=== PATIENT | female | born 1960 | race Caucasian/White ===

== ENCOUNTER 2017-04-05 12:15 | Emergency (ER) | payer OTHER ==
[2017-04-05 12:23] VITALS: RESP 16
--- NOTE | 2017-04-05 12:31 | ED ---
General Adult HPI - General Chief complaint: Recheck/Abnormal Lab/Rx Stated complaint: hypoglycemia Time Seen by Provider: 04/05/17 12:24 Source: patient, EMS, RN notes reviewed, old records reviewed Mode of arrival: EMS Limitations: no limitations - History of Present Illness Initial comments: 56 year-old female who presents emergency room today with chief complaint of low blood sugar today while she was at work. Patient does admit that she works at [employer]. Checked her blood sugar was 35. They did give her food and drinks. Patient does admit that she is on insulin only takes at night. Has not eaten or drank anything prior to this episode of feeling somewhat lightheaded. patient does admit that her laceration been monitoring blood pressure which is been elevated was seen here recently for an elevated blood pressure. She is scheduled to see her family doctor in 2 days. Patient denies any other complaints or symptoms. Patient denies any recent fever, chills, shortness of breath, chest pain, back pain, abdominal pain, nausea or vomiting, numbness or tingling, dysuria or hematuria, constipation or diarrhea, headaches or visual changes, or any other complaints. - Related Data Home Medications Medication Instructions Recorded Confirmed Atenolol [Tenormin] 50 mg PO BID 03/29/17 04/05/17 Cholecalciferol [Vitamin D3] 1,000 unit PO HS 03/29/17 04/05/17 Enalapril [Vasotec] 20 mg PO BID 03/29/17 04/05/17 Gabapentin [Neurontin] 200 mg PO BID 03/29/17 04/05/17 Hydrochlorothiazide [Hydrodiuril] 25 mg PO BID 03/29/17 04/05/17 Insulin Glargine,Hum.rec.anlog 70 unit SQ HS 03/29/17 04/05/17 [Lantus Solostar] Insulin Lispro [humaLOG Kwikpen] 24 unit SQ HS 03/29/17 04/05/17 Naproxen Sodium [Aleve] 220 mg PO Q12HR PRN 03/29/17 04/05/17 Potassium Chloride [Klor-Con 40 meq PO BID 03/29/17 04/05/17 Sprinkle] cloNIDine HCL 0.3 mg PO BID 03/29/17 04/05/17 metFORMIN HCL ER [Glucophage Xr] 1,000 mg PO PC-SUPPER 03/29/17 04/05/17 Previous Rx's Medication Instructions Recorded hydrALAZINE HCL [Apresoline] 10 mg PO QID #40 tablet 03/29/17 Allergies Allergy/AdvReac Type Severity Reaction Status Date / Time sulfamethoxazole AdvReac Itching Verified 04/05/17 12:47 [From Bactrim] trimethoprim [From Bactrim] AdvReac Itching Verified 04/05/17 12:47 Review of Systems ROS Statement: Those systems with pertinent positive or pertinent negative responses have been documented in the HPI. ROS Other: All systems not noted in ROS Statement are negative. Past Medical History Past Medical History: Diabetes Mellitus, Hypertension History of Any Multi-Drug Resistant Organisms: None Reported Past Surgical History: Hysterectomy Past Psychological History: No Psychological Hx Reported Smoking Status: Current every day smoker Past Alcohol Use History: Occasional Past Drug Use History: None Reported General Exam - General Exam Comments Initial Comments: General: The patient is awake and alert, in no distress, and does not appear acutely ill. Eye: Pupils are equal, round and reactive to light, extra-ocular movements are intact. No nystagmus. There is normal conjunctiva bilaterally. No signs of icterus. Ears, nose, mouth and throat: There are moist mucous membranes and no oral lesions. Neck: The neck is supple, there is no tenderness or JVD. Cardiovascular: There is a regular rate and rhythm. No murmur, rub or gallop is appreciated. Respiratory: Lungs are clear to auscultation, respirations are non-labored, breath sounds are equal. No wheezes, stridor, rales, or rhonchi. Gastrointestinal: Soft, non-distended, non-tender abdomen without masses or organomegaly noted. There is no rebound or guarding present. No CVA tenderness. Bowel sounds are unremarkable. Musculoskeletal: Normal ROM, no tenderness. Strength 5/5. Sensation intact. Pulses equal bilaterally 2+. Neurological: A&O x 3. CN II-XII intact, There are no obvious motor or sensory deficits. Coordination appears grossly intact. Speech is normal. Skin: Skin is warm and dry and no rashes or lesions are noted. Psychiatric: Cooperative, appropriate mood & affect, normal judgment. Limitations: no limitations Course Vital Signs 04/05/17 04/05/17 12:19 13:41 Temperature 97.5 F L Pulse Rate 57 L 53 L Respiratory 16 Rate Blood Pressure 149/57 139/67 O2 Sat by Pulse 99 97 Oximetry Medical Decision Making - Medical Decision Making patient reexamined at this time shows no signs of distress. Case was discussed in detail with attending physician Dr. Suarez. Patient's labs been reviewed. Current enzymes negative. Patient's potassium 2.6 history of hypokalemia. States she has not taken her potassium medication. Patient was given potassium by mouth here in emergency room. At this time she is asymptomatic. She does admit to a hypoglycemic episode while at work. She states that she did become somewhat confused and lightheaded and had her sugar checked was 35 she received food and something to drink at this time her blood sugars been stable here in emergency room. She is had no symptoms. She does admit that she's been following up due to an elevated blood pressure was seen here the emergency room recently for this. She states she has a point with her family doctor in 2 days. At this time patient asymptomatic we will discharge her to follow-up the family doctor have repeat labs obtained. Advised to return here to the emergency room if any symptoms increase or worsen or for any other concerns. Patient and family member at bedside state understanding and are in agreement with the plan. - Lab Data Result diagrams: 04/05/17 12:47 04/05/17 12:47 Lab Results 04/05/17 04/05/17 04/05/17 Range/Units 12:18 12:47 12:47 WBC 10.6 (3.8-10.6) k/uL RBC 4.61 (3.80-5.40) m/uL Hgb 15.4 (11.4-16.0) gm/dL Hct 44.3 (34.0-46.0) % MCV 96.1 (80.0-100.0) fL MCH 33.5 (25.0-35.0) pg MCHC 34.8 (31.0-37.0) g/dL RDW 13.5 (11.5-15.5) % Plt Count 239 (150-450) k/uL Neutrophils % 61 % Lymphocytes % 30 % Monocytes % 5 % Eosinophils % 2 % Basophils % 1 % Neutrophils # 6.5 (1.3-7.7) k/uL Lymphocytes # 3.2 (1.0-4.8) k/uL Monocytes # 0.5 (0-1.0) k/uL Eosinophils # 0.2 (0-0.7) k/uL Basophils # 0.1 (0-0.2) k/uL Sodium 136 L (137-145) mmol/L Potassium 2.6 L* (3.5-5.1) mmol/L Chloride 100 (98-107) mmol/L Carbon Dioxide 26 (22-30) mmol/L Anion Gap 10 mmol/L BUN 17 (7-17) mg/dL Creatinine 0.90 (0.52-1.04) mg/dL Est GFR (MDRD) Af Amer >60 (>60 ml/min/1.73 sqM) Est GFR (MDRD) Non-Af >60 (>60 ml/min/1.73 sqM) Glucose 115 H (74-99) mg/dL POC Glucose (mg/dL) 132 H (75-99) mg/dL POC Glu Acetylene Cylinder Packing Mixer ID Marlyn Narvaez Calcium 9.7 (8.4-10.2) mg/dL Total Bilirubin 0.7 (0.2-1.3) mg/dL AST 27 (14-36) U/L ALT 39 (9-52) U/L Alkaline Phosphatase 70 (38-126) U/L Total Creatine Kinase (30-135) U/L CK-MB (CK-2) (0.0-2.4) ng/mL CK-MB (CK-2) Rel Index Troponin I (0.000-0.034) ng/mL Total Protein 6.2 L (6.3-8.2) g/dL Albumin 3.6 (3.5-5.0) g/dL Urine Color Urine Appearance (Clear) Urine pH (5.0-8.0) Ur Specific [place] (1.001-1.035) Urine Protein (Negative) Urine Glucose (UA) (Negative) Urine Ketones (Negative) Urine Blood (Negative) Urine Nitrite (Negative) Urine Bilirubin (Negative) Urine Urobilinogen (<2.0) mg/dL Ur Leukocyte Esterase (Negative) Urine RBC (0-5) /hpf Urine WBC (0-5) /hpf Ur Squamous Epith Cells (0-4) /hpf Amorphous Sediment (None) /hpf Urine Bacteria (None) /hpf 11/28/17 11/28/17 11/28/17 Range/Units 12:47 12:55 13:33 WBC (3.8-10.6) k/uL RBC (3.80-5.40) m/uL Hgb (11.4-16.0) gm/dL Hct (34.0-46.0) % MCV (80.0-100.0) fL MCH (25.0-35.0) pg MCHC (31.0-37.0) g/dL RDW (11.5-15.5) % Plt Count (150-450) k/uL Neutrophils % % Lymphocytes % % Monocytes % % Eosinophils % % Basophils % % Neutrophils # (1.3-7.7) k/uL Lymphocytes # (1.0-4.8) k/uL Monocytes # (0-1.0) k/uL Eosinophils # (0-0.7) k/uL Basophils # (0-0.2) k/uL Sodium (137-145) mmol/L Potassium (3.5-5.1) mmol/L Chloride (98-107) mmol/L Carbon Dioxide (22-30) mmol/L Anion Gap mmol/L BUN (7-17) mg/dL Creatinine (0.52-1.04) mg/dL Est GFR (MDRD) Af Amer (>60 ml/min/1.73 sqM) Est GFR (MDRD) Non-Af (>60 ml/min/1.73 sqM) Glucose (74-99) mg/dL POC Glucose (mg/dL) 97 (75-99) mg/dL POC Glu Acetylene Cylinder Packing Mixer ID Marlyn Narvaez Calcium (8.4-10.2) mg/dL Total Bilirubin (0.2-1.3) mg/dL AST (14-36) U/L ALT (9-52) U/L Alkaline Phosphatase (38-126) U/L Total Creatine Kinase 220 H (30-135) U/L CK-MB (CK-2) 6.4 H* (0.0-2.4) ng/mL CK-MB (CK-2) Rel Index 2.9 Troponin I 0.016 (0.000-0.034) ng/mL Total Protein (6.3-8.2) g/dL Albumin (3.5-5.0) g/dL Urine Color Yellow Urine Appearance Turbid H (Clear) Urine pH 7.5 (5.0-8.0) Ur Specific [place] 1.009 (1.001-1.035) Urine Protein Trace H (Negative) Urine Glucose (UA) Negative (Negative) Urine Ketones Negative (Negative) Urine Blood Trace H (Negative) Urine Nitrite Negative (Negative) Urine Bilirubin Negative (Negative) Urine Urobilinogen <2.0 (<2.0) mg/dL Ur Leukocyte Esterase Negative (Negative) Urine RBC 2 (0-5) /hpf Urine WBC 5 (0-5) /hpf Ur Squamous Epith Cells 9 H (0-4) /hpf Amorphous Sediment Rare H (None) /hpf Urine Bacteria Occasional H (None) /hpf Disposition Clinical Impression: Hypoglycemia, Hypokalemia Disposition: HOME SELF-CARE Condition: Good Instructions: Hypoglycemia in a Person with Diabetes (ED) Additional Instructions: Please use medication as discussed. Please follow-up with family doctor in the next 2 days. Please return to emergency room if the symptoms increase or worsen or for any other concerns. Referrals: Gurinder Gold MD [Primary Care Provider] - 1-2 days Time of Disposition: 14:29
[2017-04-05 13:00] LABS: Basophils # (A) 0.1 k/uL (0-0.2); Basophils % (A) 1 %; CH 34.4; Eosinophils # (A) 0.2 k/uL (0-0.7); Eosinophils % (A) 2 %; HCT 44.3 % (34.0-46.0); HDW 2.74; HGB 15.4 gm/dL (11.4-16.0); Luc # (Auto) 0.22; Luc % (Auto) 2; Lymphocytes # (A) 3.2 k/uL (1.0-4.8); Lymphocytes % (A) 30 %; MCH 33.5 pg (25.0-35.0); MCHC 34.8 g/dL (31.0-37.0); MCV 96.1 fL (80.0-100.0); Mean Platelet Volume 8.1; Monocytes # (A) 0.5 k/uL (0-1.0); Monocytes % (A) 5 %; Neutrophils # (A) 6.5 k/uL (1.3-7.7); Neutrophils % (A) 61 %; RBC 4.61 m/uL (3.80-5.40); RDW 13.5 % (11.5-15.5); WBC 10.6 k/uL (3.8-10.6); WBC (Perox) 10.21
[2017-04-05 13:17] LABS: ALT 39 U/L (9-52); AST 27 U/L (14-36); Alkaline Phosphatase 70 U/L (38-126); Anion Gap 10 mmol/L; Blood Urea Nitrogen 17 mg/dL (7-17); Calcium 9.7 mg/dL (8.4-10.2); Carbon Dioxide 26 mmol/L (22-30); Chloride 100 mmol/L (98-107); Glucose 115 mg/dL (74-99); Non-African American GFR(MDRD) >60 (>60 ml/min/1.73 sqM); Sodium 136 mmol/L (137-145); Total Bilirubin 0.7 mg/dL (0.2-1.3); Total Protein 6.2 g/dL (6.3-8.2)
[2017-04-05 13:20] LABS: Amorphous Sediment,Urine Rare /hpf; Appearance,Urine Turbid (Clear); Bacteria,Urine Occasional /hpf; Bilirubin,Urine Negative (Negative); Glucose,Urine (UA) Negative (Negative); Ketones,Urine Negative (Negative); Leukocyte Esterase,Urine Negative (Negative); Nitrite,Urine Negative (Negative); PH, Urine 7.5 (5.0-8.0); Particle Count 32681; Protein,Urine Trace (Negative); RBC,Urine 2 /hpf (0-5); Specific Gravity,Urine 1.009 (1.001-1.035); Squamous Epithelial Cell,Urine 9 /hpf (0-4); UA Billing (MACRO vs. MICRO) MICRO; Urobilinogen,Urine <2.0 mg/dL (<2.0); WBC,Urine 5 /hpf (0-5)
[2017-04-05 13:28] LABS: Potassium 2.6 mmol/L (3.5-5.1)
--- NOTE | 2017-04-05 13:29 | XR ---
EXAMINATION TYPE: XR chest 2V DATE OF EXAM: 04/05/2017 COMPARISON: 04/05/2017 HISTORY: Shortness of breath TECHNIQUE: Frontal and lateral views of the chest are obtained. FINDINGS: Scattered senescent parenchymal changes noted. No evidence for infiltrate. No evidence for atelectasis. Heart size is stable. Mediastinal structures are stable and grossly unremarkable. No evidence for hilar prominence. Degenerative changes dorsal spine. IMPRESSION: 1. No evidence for acute pulmonary disease.
[2017-04-05 13:33] LABS: Glucose,Whole Blood 97 mg/dL (75-99)
[2017-04-05] MEDS ORDERED: POTASSIUM CHLORIDE ER 20 MEQ TAB.ER PO STA (13:34)
[2017-04-05 13:51] LABS: Glucose,Whole Blood 132 mg/dL (75-99)
[2017-04-05 14:00] LABS: Troponin I 0.016 ng/mL (0.000-0.034)
[2017-04-05 14:07] LABS: Creatine Kinase MB 6.4 ng/mL (0.0-2.4)
[2017-04-05 14:48] VITALS: BP 153/74; PULSE 61; TEMP 98
== END 2017-04-05 14:47 | disposition home or self-care (01) ==
LOC: EC 12:15
DX: E11.649 Type 2 diabetes mellitus with hypoglycemia without coma (principal); I10 Essential (primary) hypertension; F17.200 Nicotine dependence, unspecified, uncomplicated; Z79.4 Long term (current) use of insulin; Z79.899 Other long term (current) drug therapy; Z79.1 Long term (current) use of non-steroidal anti-inflammatories (NSAID); Z88.2 Allergy status to sulfonamides
CPT/HCPCS: 36415; 71020; 80053; 81001; 82550; 82553; 83036; 84484; 85025; 93005; 99285

== ENCOUNTER 2017-10-21 13:28 | Inpatient (IN) | payer OTHER ==
--- NOTE | 2017-10-21 13:46 | ED ---
General Adult HPI - General Chief complaint: Neuro Symptoms/Deficit Stated complaint: Leg Numbness Time Seen by Provider: 10/21/17 13:37 Source: patient, RN notes reviewed, old records reviewed Mode of arrival: wheelchair Limitations: physical limitation - History of Present Illness Initial comments: 56-year-old female with history of hypertension diabetes presents with left leg numbness and weakness. Patient did have some left facial numbness and slurred speech which resolved prior to arrival. Patient patient states she woke with her left leg numbness this morning and weakness has progressed over the past 5- 6 hours. She denies any left upper extremity weakness or numbness. No chest pain. No shortness of breath. No abdominal pain. - Related Data Home Medications Medication Instructions Recorded Confirmed Atenolol [Tenormin] 50 mg PO BID 03/29/17 10/21/17 Enalapril [Vasotec] 20 mg PO BID 03/29/17 10/21/17 Gabapentin [Neurontin] 200 mg PO BID 03/29/17 10/21/17 Hydrochlorothiazide [Hydrodiuril] 25 mg PO BID 03/29/17 10/21/17 Insulin Glargine,Hum.rec.anlog 70 unit SQ HS 03/29/17 10/21/17 [Lantus Solostar] Naproxen Sodium [Aleve] 220 mg PO Q12HR PRN 03/29/17 10/21/17 Potassium Chloride [Klor-Con 40 meq PO BID 03/29/17 10/21/17 Sprinkle] cloNIDine HCL 0.3 mg PO BID 03/29/17 10/21/17 metFORMIN HCL ER [Glucophage Xr] 500 mg PO BID 03/29/17 10/21/17 Allopurinol [Zyloprim] 150 mg PO DAILY 10/21/17 10/21/17 Colchicine [Colcrys] 0.6 mg PO DAILY 10/21/17 10/21/17 Diazepam [Valium] 2 mg PO TID PRN 10/21/17 10/21/17 INSULIN LISPRO (HumaLOG) [HumaLOG] 24 units SQ AC-TID 10/21/17 10/21/17 INSULIN LISPRO (humaLOG) [humaLOG] See Protocol SQ AC-TID 10/21/17 10/21/17 hydrALAZINE HCL [Apresoline] 10 mg PO BID 10/21/17 10/21/17 Allergies Allergy/AdvReac Type Severity Reaction Status Date / Time sulfamethoxazole AdvReac Itching Verified 10/21/17 14:16 [From Bactrim] trimethoprim [From Bactrim] AdvReac Itching Verified 10/21/17 14:16 Review of Systems ROS Statement: Those systems with pertinent positive or pertinent negative responses have been documented in the HPI. ROS Other: All systems not noted in ROS Statement are negative. Past Medical History Past Medical History: Diabetes Mellitus, Hypertension Additional Past Medical History / Comment(s): gout History of Any Multi-Drug Resistant Organisms: None Reported Past Surgical History: Hysterectomy Past Psychological History: No Psychological Hx Reported Smoking Status: Current every day smoker Past Alcohol Use History: Occasional Past Drug Use History: None Reported General Exam Limitations: physical limitation General appearance: alert, in no apparent distress Head exam: Present: atraumatic, normocephalic Eye exam: Present: normal appearance, PERRL, EOMI ENT exam: Present: normal exam Neck exam: Present: normal inspection. Absent: tenderness, meningismus Respiratory exam: Present: wheezes. Absent: respiratory distress Cardiovascular Exam: Present: regular rate, normal rhythm GI/Abdominal exam: Present: soft. Absent: distended, tenderness Extremities exam: Present: normal inspection, normal capillary refill. Absent: pedal edema Neurological exam: Present: alert, oriented X3, CN II-XII intact, motor sensory deficit (Patient has NIH of 2 for left lower extremity drift and sensory loss. Patient has reduced left upper extremity strength and reduced wedding planner strength however does not meet NIH criteria.) Psychiatric exam: Present: normal affect, normal mood Skin exam: Present: warm, dry, intact Course Vital Signs 10/21/17 10/21/17 13:31 15:06 Temperature 98.5 F Pulse Rate 64 58 L Respiratory 18 18 Rate Blood Pressure 185/93 184/87 O2 Sat by Pulse 99 99 Oximetry EKG Findings - EKG Comments: EKG Findings:: EKG: Normal sinus rhythm with sinus arrhythmia, rate of 62, MN interval 164, QRS duration 88, QTC 434, no signs of acute ischemia Medical Decision Making - Medical Decision Making 56-year-old female presenting with left lower leg weakness and numbness. On exam patient has an NIH of 2, she does have some weakness in her upper extremities well, no distress, this is primarily weakness in her flexion and wedding planner strength. Patient was not a TPA candidate secondary to onset time and awakening with minimal symptoms. CT is obtained, this does show encephalomalacia in the left cerebellum, no intracranial hemorrhage. CT angiography is negative for large occlusion or aneurysm. Laboratory studies are within normal limits, patient will be admitted for further stroke workup. - Lab Data Result diagrams: 10/21/17 13:54 10/21/17 13:54 Lab Results 10/21/17 10/21/17 10/21/17 Range/Units 13:54 13:54 13:54 WBC 10.7 H (3.8-10.6) k/uL RBC 4.57 (3.80-5.40) m/uL Hgb 14.1 (11.4-16.0) gm/dL Hct 40.8 (34.0-46.0) % MCV 89.4 (80.0-100.0) fL MCH 30.9 (25.0-35.0) pg MCHC 34.6 (31.0-37.0) g/dL RDW 13.6 (11.5-15.5) % Plt Count 234 (150-450) k/uL Neutrophils % 61 % Lymphocytes % 30 % Monocytes % 5 % Eosinophils % 2 % Basophils % 1 % Neutrophils # 6.5 (1.3-7.7) k/uL Lymphocytes # 3.2 (1.0-4.8) k/uL Monocytes # 0.6 (0-1.0) k/uL Eosinophils # 0.2 (0-0.7) k/uL Basophils # 0.1 (0-0.2) k/uL PT (9.0-12.0) sec INR (<1.2) APTT (22.0-30.0) sec Sodium 142 (137-145) mmol/L Potassium 3.6 (3.5-5.1) mmol/L Chloride 107 (98-107) mmol/L Carbon Dioxide 23 (22-30) mmol/L Anion Gap 12 mmol/L BUN 19 H (7-17) mg/dL Creatinine 0.82 (0.52-1.04) mg/dL Est GFR (CKD-EPI)AfAm >90 (>60 ml/min/1.73 sqM) Est GFR (CKD-EPI)NonAf 81 (>60 ml/min/1.73 sqM) Glucose 142 H (74-99) mg/dL Calcium 10.1 (8.4-10.2) mg/dL Total Bilirubin 0.7 (0.2-1.3) mg/dL AST 25 (14-36) U/L ALT 41 (9-52) U/L Alkaline Phosphatase 97 (38-126) U/L Total Creatine Kinase 102 (30-135) U/L CK-MB (CK-2) 3.3 H* (0.0-2.4) ng/mL CK-MB (CK-2) Rel Index 3.2 Troponin I <0.012 (0.000-0.034) ng/mL Total Protein 6.5 (6.3-8.2) g/dL Albumin 4.2 (3.5-5.0) g/dL 10/21/17 Range/Units 13:54 WBC (3.8-10.6) k/uL RBC (3.80-5.40) m/uL Hgb (11.4-16.0) gm/dL Hct (34.0-46.0) % MCV (80.0-100.0) fL MCH (25.0-35.0) pg MCHC (31.0-37.0) g/dL RDW (11.5-15.5) % Plt Count (150-450) k/uL Neutrophils % % Lymphocytes % % Monocytes % % Eosinophils % % Basophils % % Neutrophils # (1.3-7.7) k/uL Lymphocytes # (1.0-4.8) k/uL Monocytes # (0-1.0) k/uL Eosinophils # (0-0.7) k/uL Basophils # (0-0.2) k/uL PT 10.1 (9.0-12.0) sec INR 1.0 (<1.2) APTT 20.6 L (22.0-30.0) sec Sodium (137-145) mmol/L Potassium (3.5-5.1) mmol/L Chloride (98-107) mmol/L Carbon Dioxide (22-30) mmol/L Anion Gap mmol/L BUN (7-17) mg/dL Creatinine (0.52-1.04) mg/dL Est GFR (CKD-EPI)AfAm (>60 ml/min/1.73 sqM) Est GFR (CKD-EPI)NonAf (>60 ml/min/1.73 sqM) Glucose (74-99) mg/dL Calcium (8.4-10.2) mg/dL Total Bilirubin (0.2-1.3) mg/dL AST (14-36) U/L ALT (9-52) U/L Alkaline Phosphatase (38-126) U/L Total Creatine Kinase (30-135) U/L CK-MB (CK-2) (0.0-2.4) ng/mL CK-MB (CK-2) Rel Index Troponin I (0.000-0.034) ng/mL Total Protein (6.3-8.2) g/dL Albumin (3.5-5.0) g/dL Disposition Clinical Impression: Cerebrovascular accident Disposition: ADMITTED IP TO THIS [facility] Condition: Stable Is patient prescribed a controlled substance at d/c from ED?: No Referrals: Rene Armijo DO [Primary Care Provider] - 1-2 days Decision to Admit Reason: Admit from EC Decision Date: 10/21/17 Decision Time: 15:35
[2017-10-21 14:05] LABS: Basophils # (A) 0.1 k/uL (0-0.2); Basophils % (A) 1 %; Eosinophils # (A) 0.2 k/uL (0-0.7); Eosinophils % (A) 2 %; HCT 40.8 % (34.0-46.0); HGB 14.1 gm/dL (11.4-16.0); Lymphocytes # (A) 3.2 k/uL (1.0-4.8); Lymphocytes % (A) 30 %; MCH 30.9 pg (25.0-35.0); MCHC 34.6 g/dL (31.0-37.0); MCV 89.4 fL (80.0-100.0); Mean Platelet Volume 7.9; Monocytes # (A) 0.6 k/uL (0-1.0); Monocytes % (A) 5 %; Neutrophils # (A) 6.5 k/uL (1.3-7.7); Neutrophils % (A) 61 %; Platelet Count 234 k/uL (150-450); RBC 4.57 m/uL (3.80-5.40); RDW 13.6 % (11.5-15.5); WBC 10.7 k/uL (3.8-10.6)
[2017-10-21 14:15] LABS: ALT 41 U/L (9-52); AST 25 U/L (14-36); Albumin 4.2 g/dL (3.5-5.0); Alkaline Phosphatase 97 U/L (38-126); Anion Gap 12 mmol/L; Blood Urea Nitrogen 19 mg/dL (7-17); Calcium 10.1 mg/dL (8.4-10.2); Carbon Dioxide 23 mmol/L (22-30); Chloride 107 mmol/L (98-107); Glucose 142 mg/dL (74-99); Potassium 3.6 mmol/L (3.5-5.1); Sodium 142 mmol/L (137-145); Total Bilirubin 0.7 mg/dL (0.2-1.3); Total Protein 6.5 g/dL (6.3-8.2)
[2017-10-21 14:21] LABS: Partial Thromboplastin Time 20.6 sec (22.0-30.0); Prothrombin Time 10.1 sec (9.0-12.0)
[2017-10-21 14:35] LABS: Creatine Kinase 102 U/L (30-135)
[2017-10-21 14:47] LABS: Troponin I <0.012 ng/mL (0.000-0.034)
[2017-10-21 14:49] LABS: Creatine Kinase MB 3.3 ng/mL (0.0-2.4)
--- NOTE | 2017-10-21 15:03 | CT ---
EXAMINATION TYPE: CT brain wo con for TPA DATE OF EXAM: 10/21/2017 COMPARISON: 01/10/2015 HISTORY: Lt leg numbness CT DLP: 1036 mGycm Automated exposure control for dose reduction was used. FINDINGS: There is a focal area of hypoattenuation within the within the left cerebellar hemisphere posteriorly more exaggerated than on the prior exam of 2014 representing encephalomalacia from prior injury. The re is also a prominent magna cisterna magna, incidentally noted. The ventricles and peripheral sulci are within normal limits for the patient's age. No hydrocephalus or transependymal edema is seen. Gra y-white matter interface is maintained. Mild atherosclerosis is seen of the intracranial vasculature. No suspicious extra-axial fluid collections are identified. Basal ganglia and insular cortices are w ell-preserved. Scant mucosal thickening is seen within the sphenoid sinuses. Remaining paranasal sinu ses and mastoid air cells are well aerated. Calvarium is intact. IMPRESSION: ENCEPHALOMALACIA WITHIN THE LEFT CEREBELLAR HEMISPHERE PROGRESSED FROM THE PRIOR EXAM. NO ACUTE INTRA CRANIAL PROCESS
--- NOTE | 2017-10-21 15:14 | CT ---
EXAMINATION TYPE: CT angio head neck DATE OF EXAM: 10/21/2017 HISTORY: Lt leg numbness COMPARISON: CT brain of the same date CT DLP: 338.1 mGycm. Automated Exposure Control for Dose Reduction was Utilized. TECHNIQUE: CTA scan of the neck is performed with IV Contrast, patient injected with 65 mL of Isovue 370, axial images are obtained, coronal and sagittal reformatted images are reviewed. Three-D recons tructed images are created on an independent workstation and reviewed. FINDINGS: Carotid/Vascular Structures: Moderate calcific atheromatous changes seen of the aortic arch. There is a normal three-vessel branch pattern of the aortic arch with mild nonhemodynamically significant iggy nosis of the origin of the left subclavian artery. The common carotid arteries are patent without ath erosclerosis. There is a medial course of the right common carotid artery with less than 50% calcific and noncalcific atheromatous change of the bilateral carotid bulbs. The right internal carotid arter y takes a hair pin turn just before entering the skull base. The internal carotid arteries in their c ervical portions and intracranial portions are patent without occlusion. However there is significant atheromatous plaquing of the cavernous portions of the internal carotid arteries of approximately 50 % is also supraclinoid portions. The proximal mineral cerebral arteries, anterior cerebral arteries, and posterior cerebral arteries a ppear patent. The anterior commuting artery and posterior communicating arteries are diminutive. The right vertebral artery is dominant. Minimal atherosclerosis seen of the left vertebral artery multifo dorys early. No evidence of intracranial aneurysm is seen. Other: Thyroid gland is heterogenous with ar 5 mm hypoattenuated posterior right thyroid gland nodule noted. Possible lymph nodes are seen within the parotid gland. Osseous structures are grossly intact . Minimal bibasilar atelectasis and paraseptal emphysema is seen at the lung apices. Moderate multile leni degenerative changes of the cervical spine are noted. IMPRESSION: No large vessel focal occlusion of the head or neck. Multifocal calcific atheromatous pl aquing of the carotid bulbs (less than 50%) left vertebral artery, cavernous portions and supraclinoi d portions of the internal carotid arteries (approximately 50%) and aortic arch. No evidence of intra cranial aneurysm.
--- NOTE | 2017-10-21 15:25 | XR ---
EXAMINATION TYPE: XR chest 2V DATE OF EXAM: 10/21/2017 COMPARISON: 03/28/2017 HISTORY: Fall with leg pain and facial numbness. History of hypertension. TECHNIQUE: Frontal and lateral views of the chest are obtained. FINDINGS: There is no focal air space opacity, pleural effusion, or pneumothorax seen. The cardiac silhouette size is within normal limits. The osseous structures are intact. Minimal multilevel dege nerative changes of thoracic spine are seen. IMPRESSION: No acute cardiopulmonary process.
[2017-10-21] MEDS ORDERED: ASPIRIN 325 MG TAB PO STA (15:35)
[2017-10-21] MEDS: GABAPENTIN 100 MG CAP PO SCH (20:21)
[2017-10-21] MEDS: cloNIDine HCL 0.1 MG TAB PO SCH (20:21)
[2017-10-21] MEDS: hydrALAZINE HCL 10 MG TAB PO SCH (20:22)
[2017-10-21] MEDS: HYDROCHLOROTHIAZIDE 25 MG TAB PO SCH (20:22)
[2017-10-21] MEDS: POTASSIUM CHLORIDE ER 20 MEQ TAB.ER PO SCH (20:22)
[2017-10-21] MEDS: LISINOPRIL 20 MG TAB PO SCH (20:22)
[2017-10-21] MEDS: ATENOLOL 50 MG TAB PO SCH (20:22)
[2017-10-21] MEDS: metFORMIN 500 MG TAB PO SCH (20:22)
[2017-10-21] MEDS: DIAZEPAM 2 MG TAB PO PRN (20:26)
[2017-10-21] MEDS ORDERED: ATORVASTATIN 80 MG TAB PO SCH (21:00)
[2017-10-21] MEDS ORDERED: INSULIN DETEMIR 100 UNIT/ML 10 ML VIAL SQ SCH (21:00)
[2017-10-21] MEDS: INSULIN ASPART 100 UNIT/ML 1 ML 10 ML VIAL SQ SCH (21:01)
[2017-10-21] MEDS: INSULIN DETEMIR 100 UNIT/ML 10 ML VIAL SQ SCH (21:19)
[2017-10-21] MEDS: HEPARIN SODIUM,PORCINE 5,000 UNIT/ML 1 ML VIAL SQ SCH (23:58)
[2017-10-22] MEDS: INSULIN ASPART 100 UNIT/ML 1 ML 10 ML VIAL SQ SCH ×4 (06:18→20:59)
[2017-10-22 06:25] LABS: Glucose,Whole Blood 49 mg/dL (75-99)
[2017-10-22 06:35] LABS: Glucose,Whole Blood 90 mg/dL (75-99)
[2017-10-22 06:42] LABS: Cholesterol 224 mg/dL (<200); HDL Cholesterol 35 mg/dL (40-60); LDL Cholesterol,Calculated 140 mg/dL (0-99); Triglycerides 247 mg/dL (<150)
[2017-10-22] MEDS ORDERED: INSULIN ASPART 100 UNIT/ML 1 ML 10 ML VIAL SQ SCH (07:30)
[2017-10-22] MEDS: HEPARIN SODIUM,PORCINE 5,000 UNIT/ML 1 ML VIAL SQ SCH ×3 (08:19→23:32)
[2017-10-22] MEDS: ALLOPURINOL 300 MG TAB PO SCH (08:20)
[2017-10-22] MEDS: ATENOLOL 50 MG TAB PO SCH ×2 (08:21→20:28)
[2017-10-22] MEDS: cloNIDine HCL 0.1 MG TAB PO SCH (08:21)
[2017-10-22] MEDS: GABAPENTIN 100 MG CAP PO SCH ×2 (08:21→20:28)
[2017-10-22] MEDS: COLCHICINE 0.6 MG EACH PO SCH (08:21)
[2017-10-22] MEDS: HYDROCHLOROTHIAZIDE 25 MG TAB PO SCH (08:22)
[2017-10-22] MEDS: LISINOPRIL 20 MG TAB PO SCH (08:22)
[2017-10-22] MEDS: hydrALAZINE HCL 10 MG TAB PO SCH (08:22)
[2017-10-22] MEDS: metFORMIN 500 MG TAB PO SCH ×2 (08:23→20:27)
[2017-10-22] MEDS: POTASSIUM CHLORIDE ER 20 MEQ TAB.ER PO SCH ×2 (08:23→20:28)
[2017-10-22] MEDS ORDERED: ASPIRIN 325 MG TAB PO SCH (12:00)
[2017-10-22 12:13] LABS: Glucose,Whole Blood 151 mg/dL (75-99)
--- NOTE | 2017-10-22 13:20 | ECHOF ---
Referral Reason:Thrombus MEASUREMENTS -------- HEIGHT: 157.5 cm WEIGHT: 71.7 kg BP: IVSd: 1.3 cm (0.6 - 1.1) LVIDd: 4.3 cm (3.9 - 5.3) LVPWd: 1.1 cm (0.6 - 1.1) IVSs: 1.5 cm LVIDs: 2.7 cm LVPWs: 1.9 cm LA Diam: 3.4 cm (2.7 - 3.8) LAESV Index (A-L): 44.57 ml/m Ao Diam: 2.9 cm (2.0 - 3.7) LA Diam: 3.6 cm (2.7 - 3.8) AV Cusp: 2.1 cm (1.5 - 2.6) EPSS: 1.4 cm MV E Conor: 0.82 m/s MV DecT: 235 ms MV A Conor: 0.95 m/s MV E/A Ratio: 0.87 RAP: 5.00 mmHg RVSP: 34.46 mmHg MV EF SLOPE: 36.70 mm/s (70 - 150) MV EXCURSION: 14.92 mm (> 18.000) FINDINGS -------- Sinus rhythm. This was a technically adequate study. The left ventricular size is normal. There is mild concentric left ventricular hypertrophy. Overa ll left ventricular systolic function is normal with, an EF between 55 - 60 %. The right ventricle is normal in size. The left atrial size is normal. The right atrial size is normal. There is mild aortic valve sclerosis. There is mild aortic regurgitation. Mild mitral annular calcification present. Mild mitral regurgitation is present. Mild tricuspid regurgitation present. There is no evidence of pulmonary hypertension. The right v entricular systolic pressure, as measured by Doppler, is 34.46mmHg. There is no pulmonic regurgitation present. The aortic root size is normal. There is no pericardial effusion. CONCLUSIONS -------- 1. The left ventricular size is normal. 2. There is mild concentric left ventricular hypertrophy. 3. Overall left ventricular systolic function is normal with, an EF between 55 - 60 %. 4. The right ventricle is normal in size. 5. The left atrial size is normal. 6. The right atrial size is normal. 7. There is mild aortic valve sclerosis. 8. There is mild aortic regurgitation. 9. Mild mitral annular calcification present. 10. Mild mitral regurgitation is present. 11. Mild tricuspid regurgitation present. 12. There is no evidence of pulmonary hypertension. 13. The right ventricular systolic pressure, as measured by Doppler, is 34.46mmHg. 14. There is no pulmonic regurgitation present. 15. The aortic root size is normal. 16. There is no pericardial effusion. FINGER BUFF SEWER: Suzi Heath RDCS
[2017-10-22 13:41] LABS: Hemoglobin A1C 5.8 % (4.0-6.0)
--- NOTE | 2017-10-22 13:51 | P.CONS ---
History of Present Illness - Reason for Consult Consult date: 10/22/17 Stroke - Chief Complaint Stroke - History of Present Illness Is a pleasant 56-year-old female being evaluated by neurology office for stroke. She will yesterday with left leg numbness. She was able to stand up and walk downstairs to the bathroom with no problems but then started to develop some weakness in the left lower extremity. She then started to develop some left facial numbness and some slurred speech. She has a significant medical history of hypertension, diabetes and smoking. Blood in the ER was relatively normal with elevated glucose of 142. Her lipid panel showed triglycerides of 247, cholesterol of 224, and LDL 140 and HDL of 35. Her EKG showed normal sinus rhythm. CT of the brain showed no acute intracranial abnormalities. However, did show encephalomalacia within the left cerebellar hemisphere. she does give a history of some right sided symptoms sometime ago, possibly 2014. Her CTA showed no large vessel occlusion of the head or neck. She did have multifocal calcific plaquing of the carotid bulbs, left vertebral artery, cavernous and supraclinoid internal carotid arteries and aortic arch. At time my exam she is resting comfortably in bed in no acute distress. She still complaining of some left leg numbness. Review of Systems Constitutional: Reports as per HPI Past Medical History Past Medical History: Diabetes Mellitus, Hypertension Additional Past Medical History / Comment(s): gout, past uterine fibroids(sx), in past tx for high cholesterol but could'nt tolerate the meds., chronic gout, carpal tunnel History of Any Multi-Drug Resistant Organisms: None Reported Past Surgical History: Hysterectomy Past Anesthesia/Blood Transfusion Reactions: No Reported Reaction Smoking Status: Current every day smoker - Past Family History Mother Additional Family Medical History / Comment(s): at age 47 from heart defect Father Family Medical History: CVA/TIA, Hyperlipidemia, Hypertension Additional Family Medical History / Comment(s): 2 strokes affected brain stem Medications and Allergies Home Medications Medication Instructions Recorded Confirmed Type Atenolol [Tenormin] 50 mg PO BID 03/29/17 10/21/17 History Enalapril [Vasotec] 20 mg PO BID 03/29/17 10/21/17 History Gabapentin [Neurontin] 200 mg PO BID 03/29/17 10/21/17 History Hydrochlorothiazide [Hydrodiuril] 25 mg PO BID 03/29/17 10/21/17 History Insulin Glargine,Hum.rec.anlog 50 unit SQ HS 03/29/17 10/22/17 History [Lantus Solostar] Naproxen Sodium [Aleve] 220 mg PO Q12HR PRN 03/29/17 10/21/17 History Potassium Chloride [Klor-Con 40 meq PO BID 03/29/17 10/21/17 History Sprinkle] cloNIDine HCL 0.3 mg PO BID 03/29/17 10/21/17 History metFORMIN HCL ER [Glucophage Xr] 500 mg PO BID 03/29/17 10/21/17 History Allopurinol [Zyloprim] 150 mg PO DAILY 10/21/17 10/21/17 History Colchicine [Colcrys] 0.6 mg PO DAILY 10/21/17 10/21/17 History Diazepam [Valium] 2 mg PO TID PRN 10/21/17 10/21/17 History hydrALAZINE HCL [Apresoline] 10 mg PO BID 10/21/17 10/21/17 History Allergies Allergy/AdvReac Type Severity Reaction Status Date / Time sulfamethoxazole AdvReac Itching Verified 10/21/17 14:16 [From Bactrim] trimethoprim [From Bactrim] AdvReac Itching Verified 10/21/17 14:16 Physical Exam Vitals: Vital Signs Temp Pulse Pulse Resp BP BP Pulse Ox 10/22/17 08:10 97.8 F 49 L 16 124/61 97 10/22/17 04:00 97.2 F L 58 L 16 138/70 94 L 10/22/17 00:00 97 F L 56 L 16 142/56 100 10/21/17 21:23 160/74 10/21/17 21:17 98 10/21/17 20:00 97.2 F L 58 L 16 220/84 100 10/21/17 16:35 55 L 18 174/75 98 10/21/17 15:35 52 L 18 188/86 98 10/21/17 15:06 58 L 18 184/87 99 Intake and Output 10/21/17 10/22/17 10/22/17 22:59 06:59 14:59 Intake Total 480 Balance 480 Intake: Oral 480 Other: Voiding Method Bedside Commode Bedside Commode Bedside Commode # Voids 2 Weight 77.111 kg 71.7 kg - Constitutional General appearance: average body habitus, cooperative, no acute distress - EENT Eyes: no abnormal pupil, EOMI, PERRLA, no ptosis ENT: hearing grossly normal - Neck Neck: normal ROM, no rigidity - Respiratory Respiratory: negative: prolonged expiration, prolonged inspiration - Cardiovascular Rhythm: regular - Gastrointestinal General gastrointestinal: no distended, no tenderness - Neurologic Patient is alert and oriented 3. Speech is mildly dysarthric and language is normal. His no facial asymmetry. He has some mild left facial numbness. Strength is 5 out of 5 in bilateral upper extremities. Strength is 5 minus out of 5 and left lower extremity and 5 out of 5 in the right lower extremity. There is mild sensory deficit on the left leg. Finger to nose testing shows dysmetria of the left upper extremity. Cranial nerves II through XII are intact globally. There is no pronator drift. No tremors or seizure-like activity seen. Results CBC & Chem 7: 10/21/17 13:54 10/21/17 13:54 Labs: Abnormal Lab Results - Last 24 Hours (Table) 10/21/17 10/21/17 10/21/17 Range/Units 13:54 13:54 13:54 WBC 10.7 H (3.8-10.6) k/uL APTT (22.0-30.0) sec BUN 19 H (7-17) mg/dL Glucose 142 H (74-99) mg/dL POC Glucose (mg/dL) (75-99) mg/dL CK-MB (CK-2) 3.3 H* (0.0-2.4) ng/mL Triglycerides (<150) mg/dL Cholesterol (<200) mg/dL LDL Cholesterol, Calc (0-99) mg/dL HDL Cholesterol (40-60) mg/dL 10/21/17 10/22/17 10/22/17 Range/Units 13:54 05:28 06:14 WBC (3.8-10.6) k/uL APTT 20.6 L (22.0-30.0) sec BUN (7-17) mg/dL Glucose (74-99) mg/dL POC Glucose (mg/dL) 49 L (75-99) mg/dL CK-MB (CK-2) (0.0-2.4) ng/mL Triglycerides 247 H (<150) mg/dL Cholesterol 224 H (<200) mg/dL LDL Cholesterol, Calc 140 H (0-99) mg/dL HDL Cholesterol 35 L (40-60) mg/dL 10/22/17 Range/Units 12:09 WBC (3.8-10.6) k/uL APTT (22.0-30.0) sec BUN (7-17) mg/dL Glucose (74-99) mg/dL POC Glucose (mg/dL) 151 H (75-99) mg/dL CK-MB (CK-2) (0.0-2.4) ng/mL Triglycerides (<150) mg/dL Cholesterol (<200) mg/dL LDL Cholesterol, Calc (0-99) mg/dL HDL Cholesterol (40-60) mg/dL Assessment and Plan (1) Left hemiparesis Current Visit: Yes Status: Acute Code(s): G81.94 - HEMIPLEGIA, UNSPECIFIED AFFECTING LEFT NONDOMINANT SIDE SNOMED Code(s): 489281968 (2) Dysarthria Current Visit: Yes Status: Acute Code(s): R47.1 - DYSARTHRIA AND ANARTHRIA SNOMED Code(s): 4874881 (3) Hypertension Current Visit: Yes Status: Chronic Code(s): I10 - ESSENTIAL (PRIMARY) HYPERTENSION SNOMED Code(s): 17522716 (4) Dyslipidemia Current Visit: Yes Status: Chronic Code(s): E78.5 - HYPERLIPIDEMIA, UNSPECIFIED SNOMED Code(s): 228077269 (5) Diabetes Current Visit: Yes Status: Chronic Code(s): E11.9 - TYPE 2 DIABETES MELLITUS WITHOUT COMPLICATIONS SNOMED Code(s): 18546056 (6) Left-sided sensory deficit present Current Visit: Yes Status: Acute Code(s): R41.89 - OTH SYMPTOMS AND SIGNS W COGNITIVE FUNCTIONS AND AWARENESS SNOMED Code(s): 401499876 (7) Cerebrovascular accident Current Visit: Yes Status: Acute Code(s): I63.9 - CEREBRAL INFARCTION, UNSPECIFIED SNOMED Code(s): 347283019 Plan: The patient appears to have suffered a acute ischemic stroke of the right middle cerebral artery distribution. Her CT shows a likely old stroke. She had been placed on aspirin 325 mg because she had reported not taking aspirin previously. She does report to me that she was taking 81 mg of aspirin. We will discontinue aspirin and start her on Plavix. She has been started on Lipitor and she will continue this. An MRI has been ordered. Recommend physical, occupational, and speech therapy. Strongly recommend smoking cessation. We will continue to follow. I have performed a history and physical on the above patient. I have reviewed the above note, and agree.
--- NOTE | 2017-10-22 14:27 | MR ---
EXAMINATION TYPE: MR brain wo/w con DATE OF EXAM: 10/22/2017 COMPARISON: NONE HISTORY: left side weakness, dysarthria TECHNIQUE: Multiplanar, multisequence images of the brain and brainstem is performed without and with IV contras t, utilizing 7 mL intravenous Gadavist . FINDINGS: On the T2 and FLAIR images there are patchy areas of increased signal in the periventricular white ma tter. Total number is more than 25 and these measure up to 1 cm. There is no midline shift. There is also some patchy increased signal within the central jenny bilaterally the area measures 13 x 10 mm. T he cerebellum appears normal. Sella turcica is normal. There is slight thinning of the corpus callosu m. There is no evidence of a cortical infarct. There is no pathologic enhancement. IMPRESSION: Mild atrophy. White matter signal changes likely relates to demyelinating disease. Chroni c small vessel ischemia is possible.
--- NOTE | 2017-10-22 16:07 | P.HPIM ---
History of Present Illness 56-year-old female with history of hypertension diabetes presents with left leg numbness and weakness. Patient did have some left facial numbness and slurred speech which resolved prior to arrival. Patient patient states she woke with her left leg numbness this morning and weakness has progressed over the past 5- 6 hours. She denies any left upper extremity weakness or numbness. No chest pain. No shortness of breath. No abdominal pain. Patient does have degenerative back but the denied any significant pain now. Patient was also complaining of some numbness in the left foot. Patient had a CT angios the head and neck which showed significant atrophic Lantus Lasix but no significant occlusion rather than 50%, CT of the head did not show any acute intracranial bleed or infarction but does have encephalomalacia in the cerebellum from her previous strokes, echocardiogram within normal limits LDL is 134.. Patient is on aspirin and was started on statin here patient had issues with started in the past. Which his muscle aches. Review of Systems REVIEW OF SYSTEMS: CONSTITUTIONAL: No fever, no malaise, no fatigue. HEENT: No recent visual problems or hearing problems. Denied any sore throat. CARDIOVASCULAR: No chest pain, orthopnea, PND, no palpitations, no syncope. PULMONARY: No shortness of breath, no cough, no hemoptysis. GASTROINTESTINAL: No diarrhea, no nausea, no vomiting, no abdominal pain. Normoactive bowel sounds. NEUROLOGICAL: As mentioned in HPI. HEMATOLOGICAL: Denies any bleeding or petechiae. GENITOURINARY: Denies any burning micturition, frequency, or urgency. MUSCULOSKELETAL/RHEUMATOLOGICAL: Denies any joint pain, swelling, or any muscle pain. ENDOCRINE: Denies any polyuria or polydipsia. The rest of the 14-point review of systems is negative. Past Medical History Past Medical History: Diabetes Mellitus, Hypertension Additional Past Medical History / Comment(s): gout, past uterine fibroids(sx), in past tx for high cholesterol but could'nt tolerate the meds., chronic gout, carpal tunnel History of Any Multi-Drug Resistant Organisms: None Reported Past Surgical History: Hysterectomy Past Anesthesia/Blood Transfusion Reactions: No Reported Reaction Smoking Status: Current every day smoker - Past Family History Mother Additional Family Medical History / Comment(s): at age 47 from heart defect Father Family Medical History: CVA/TIA, Hyperlipidemia, Hypertension Additional Family Medical History / Comment(s): 2 strokes affected brain stem Medications and Allergies Home Medications Medication Instructions Recorded Confirmed Type Atenolol [Tenormin] 50 mg PO BID 03/29/17 10/21/17 History Enalapril [Vasotec] 20 mg PO BID 03/29/17 10/21/17 History Gabapentin [Neurontin] 200 mg PO BID 03/29/17 10/21/17 History Hydrochlorothiazide [Hydrodiuril] 25 mg PO BID 03/29/17 10/21/17 History Insulin Glargine,Hum.rec.anlog 50 unit SQ HS 03/29/17 10/22/17 History [Lantus Solostar] Naproxen Sodium [Aleve] 220 mg PO Q12HR PRN 03/29/17 10/21/17 History Potassium Chloride [Klor-Con 40 meq PO BID 03/29/17 10/21/17 History Sprinkle] cloNIDine HCL 0.3 mg PO BID 03/29/17 10/21/17 History metFORMIN HCL ER [Glucophage Xr] 500 mg PO BID 03/29/17 10/21/17 History Allopurinol [Zyloprim] 150 mg PO DAILY 10/21/17 10/21/17 History Colchicine [Colcrys] 0.6 mg PO DAILY 10/21/17 10/21/17 History Diazepam [Valium] 2 mg PO TID PRN 10/21/17 10/21/17 History hydrALAZINE HCL [Apresoline] 10 mg PO BID 10/21/17 10/21/17 History Allergies Allergy/AdvReac Type Severity Reaction Status Date / Time sulfamethoxazole AdvReac Itching Verified 10/21/17 14:16 [From Bactrim] trimethoprim [From Bactrim] AdvReac Itching Verified 10/21/17 14:16 Physical Exam Vitals: Vital Signs Temp Pulse Resp BP Pulse Ox 10/22/17 12:35 97.9 F 52 L 16 143/67 97 10/22/17 08:10 97.8 F 49 L 16 124/61 97 10/22/17 04:00 97.2 F L 58 L 16 138/70 94 L 10/22/17 00:00 97 F L 56 L 16 142/56 100 10/21/17 21:23 160/74 06/15/18 21:17 98 10/21/17 20:00 97.2 F L 58 L 16 220/84 100 10/21/17 16:35 55 L 18 174/75 98 Intake and Output 10/22/17 10/22/17 10/22/17 06:59 14:59 22:59 Intake Total 480 Balance 480 Intake: Oral 480 Other: Voiding Method Bedside Commode Bedside Commode # Voids 2 2 Weight 71.7 kg PHYSICAL EXAMINATION: GENERAL: The patient is alert and oriented x3, not in any acute distress. Well developed, well nourished. HEENT: Pupils are round and equally reacting to light. EOMI. No scleral icterus. No conjunctival pallor. Normocephalic, atraumatic. No pharyngeal erythema. No thyromegaly. CARDIOVASCULAR: S1 and S2 present. No murmurs, rubs, or gallops. PULMONARY: Chest is clear to auscultation, no wheezing or crackles. ABDOMEN: Soft, nontender, nondistended, normoactive bowel sounds. No palpable organomegaly. MUSCULOSKELETAL: No joint swelling or deformity. EXTREMITIES: No cyanosis, clubbing, or pedal edema. NEUROLOGICAL: Patient has 4/5 strength in the left lower extremity sensory testing was not done no other weakness was appreciated SKIN: No rashes. Results CBC & Chem 7: 10/21/17 13:54 10/21/17 13:54 Labs: Abnormal Lab Results - Last 24 Hours (Table) 10/22/17 10/22/17 10/22/17 Range/Units 05:28 06:14 12:09 POC Glucose (mg/dL) 49 L 151 H (75-99) mg/dL Triglycerides 247 H (<150) mg/dL Cholesterol 224 H (<200) mg/dL LDL Cholesterol, Calc 140 H (0-99) mg/dL HDL Cholesterol 35 L (40-60) mg/dL Thrombosis Risk Factor Assmnt - Choose All That Apply Each Factor Represents 1 point: Age 41-60 years Thrombosis Risk Factor Assessment Total Risk Factor Score: 1 Thrombosis Risk Factor Assessment Level: Low Risk Assessment and Plan Plan: Assessment and Plan Plan: -Left leg weakness: We will need to rule out ischemic stroke in the medial surface of the right parietal hemisphere of the brain. Neurology was consulted further workup as mentioned above PT/OT evaluate the patient. 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 Continue with colchicine.
[2017-10-22 16:31] LABS: Glucose,Whole Blood 92 mg/dL (75-99)
[2017-10-22] MEDS: ATORVASTATIN 40 MG TAB PO SCH (20:29)
[2017-10-22] MEDS: cloNIDine HCL 0.2 MG TAB PO SCH (20:29)
[2017-10-22 20:59] LABS: Glucose,Whole Blood 168 mg/dL (75-99)
[2017-10-22] MEDS: INSULIN DETEMIR 100 UNIT/ML 10 ML VIAL SQ SCH (21:01)
[2017-10-23 06:14] LABS: Glucose,Whole Blood 53 mg/dL (75-99)
[2017-10-23] MEDS: INSULIN ASPART 100 UNIT/ML 1 ML 10 ML VIAL SQ SCH ×4 (06:26→20:51)
[2017-10-23 06:47] LABS: Glucose,Whole Blood 77 mg/dL (75-99)
[2017-10-23] MEDS: HEPARIN SODIUM,PORCINE 5,000 UNIT/ML 1 ML VIAL SQ SCH ×2 (08:49→17:07)
[2017-10-23] MEDS: ALLOPURINOL 300 MG TAB PO SCH (08:52)
[2017-10-23] MEDS: ATENOLOL 50 MG TAB PO SCH ×2 (08:53→20:16)
[2017-10-23] MEDS: CLOPIDOGREL 75 MG TAB PO SCH (08:53)
[2017-10-23] MEDS: cloNIDine HCL 0.2 MG TAB PO SCH ×2 (08:53→20:16)
[2017-10-23] MEDS: GABAPENTIN 100 MG CAP PO SCH ×2 (08:54→20:15)
[2017-10-23] MEDS: COLCHICINE 0.6 MG EACH PO SCH (08:54)
[2017-10-23] MEDS: LISINOPRIL 20 MG TAB PO SCH (08:55)
[2017-10-23] MEDS: metFORMIN 500 MG TAB PO SCH ×2 (08:55→20:15)
[2017-10-23] MEDS: POTASSIUM CHLORIDE ER 20 MEQ TAB.ER PO SCH ×2 (08:56→20:16)
[2017-10-23 11:58] LABS: Glucose,Whole Blood 84 mg/dL (75-99)
--- NOTE | 2017-10-23 12:27 | P.PN ---
Subjective 56-year-old pleasant female came in with with the weakness and numbness in the left leg leg and patient has generalized weakness as well patient had an MRI which showed multiple areas of demyelination, concerning for demyelinating disease like multiple sclerosis, although patient is bit older for that. Patient does have history of atrial fibrillation on anticoagulation at this time. Patient does a lot of questions and concerns regarding discontinue additional hydrochlorothiazide which was actually discontinued because of her gout. I extensively discussed the plan regarding hydrochlorothiazide. Will monitor her blood pressure, if it continued to go up probably can be restarted and hydrochlorothiazide. But for now we can you to hold hydrochlorothiazide. Plan regarding clonidine is to taper down. Weakness in the left leg appeared to be better than yesterday. Constitutional: Denied any fatigue denied any fever. Cardio vascular: denied any chest pain, palpitations Gastrointestinal denied any nausea vomiting Pulmonary: Denied any shortness of breath cough Neurologic as mentioned in HPI Objective - Vital Signs Vital signs: Vital Signs Temp 97.2 F L 10/23/17 07:40 Pulse 60 10/23/17 07:40 Resp 16 10/23/17 07:40 BP 185/87 10/23/17 07:40 Pulse Ox 96 10/23/17 07:40 Intake & Output 10/22/17 10/23/17 10/23/17 18:59 06:59 18:59 Intake Total 960 240 240 Balance 960 240 240 Weight 74.6 kg Intake: Oral 960 240 240 Other: Voiding Method Bedside Commode Bedside Commode Bedside Commode # Voids 2 1 1 - Exam PHYSICAL EXAMINATION: GENERAL: The patient is alert and oriented x3, not in any acute distress. Well developed, well nourished. HEENT: Pupils are round and equally reacting to light. EOMI. No scleral icterus. No conjunctival pallor. Normocephalic, atraumatic. No pharyngeal erythema. No thyromegaly. CARDIOVASCULAR: S1 and S2 present. No murmurs, rubs, or gallops. PULMONARY: Chest is clear to auscultation, no wheezing or crackles. ABDOMEN: Soft, nontender, nondistended, normoactive bowel sounds. No palpable organomegaly. MUSCULOSKELETAL: No joint swelling or deformity. EXTREMITIES: No cyanosis, clubbing, or pedal edema. NEUROLOGICAL: Patient has 4/5 strength in the left lower extremity sensory testing was not done no other weakness was appreciated, there is probably little bit of improvement in left lower leg weakness SKIN: No rashes. - Labs CBC & Chem 7: 10/21/17 13:54 10/21/17 13:54 Labs: Abnormal Lab Results - Last 24 Hours (Table) 10/22/17 10/23/17 Range/Units 20:54 06:12 POC Glucose (mg/dL) 168 H 53 L (75-99) mg/dL Assessment and Plan Plan: Assessment and Plan Plan: -Left leg weakness: PT and OT will evaluate the patient and the patient has multiple areas of demyelination concerning for multiple sclerosis. We'll let neurology take care of further management. -Type 2 diabetes mellitus: Patient will be continued on her home regimen and sliding scale insulin. Patient blood sugars are bit low but patient probably will be started on systemic steroids for possibility of multiple cirrhosis because of that reason I'm not changing the dose of insulin and patient blood sugars may actually go up. -Hypertension patient is on multiple antidepressant medication patient has sinus bradycardia because of which I'm cutting down clonidine to 0.2 twice a day as her other medications will be continued as if these will monitor the blood pressure -Gout recent diagnosis: Because of gout I'm holding off hydrochlorothiazide.Continue with colchicine. If patient blood sugars are not well-controlled which may actually happened because of the systemic steroids patient need to be started back on hydrochlorothiazide
[2017-10-23] MEDS: methylPREDNISolone SOD SUCCI 125 MG/2 ML VIAL IV SCH ×2 (12:55→17:08)
--- NOTE | 2017-10-23 13:50 | P.PN ---
Subjective Progress Note Date: 10/23/17 Principal diagnosis: Left leg weakness This is a pleasant 56-year-old female continuing to be evaluated by the neurology office for the above complaints. Recall that her symptoms started when she woke up with left leg numbness which proceeded some weakness. She also had some left facial numbness and slurred speech. She was brought in for evaluation of possible stroke. She has a significant history of hypertension diabetes and smoking. Recall that CT of the brain showed no acute intracranial abnormalities. It did however show an old area of encephalomalacia within the left cerebellar hemisphere which had progressed from the prior exam of 2014. Subsequently, an MRI was ordered with and without contrast. The MRI showed patchy areas of increased signal in the periventricular white matter. There were more than 25 lesions. Largest of which pain about 10 mm. There was also some patchy increased signal within the central jenny bilaterally. There was no evidence of any cortical infarct. It was no pathological enhancement. At the time of my exam she is resting comfortably in bed in no acute distress. She is now having no speech or swallowing problems. She still has some intermittent left upper lip numbness. In her left lower extremity numbness is less severe but remains. Objective - Vital Signs Vital signs: Vital Signs Temp 97.2 F L 10/23/17 07:40 Pulse 60 10/23/17 07:40 Resp 16 10/23/17 07:40 BP 185/87 10/23/17 07:40 Pulse Ox 96 10/23/17 07:40 Intake & Output 10/22/17 10/23/17 10/23/17 18:59 06:59 18:59 Intake Total 960 240 240 Balance 960 240 240 Weight 74.6 kg Intake: Oral 960 240 240 Other: Voiding Method Bedside Commode Bedside Commode Bedside Commode # Voids 2 1 1 - Constitutional General appearance: Present: cooperative, no acute distress - EENT Eyes: Present: PERRLA. Absent: abnormal pupil, ptosis ENT: Present: hearing grossly normal - Neck Neck: Present: normal ROM. Absent: rigidity - Respiratory Respiratory: negative: prolonged expiration, prolonged inspiration - Cardiovascular Rhythm: regular - Gastrointestinal General gastrointestinal: Absent: distended, tenderness - Neurologic Neurologic Comment(s): She is alert and oriented 3. Speech and language are normal. There is no facial asymmetry. There is mild left facial numbness. Strength is 5 out of 5 in bilateral upper extremities 5 minus out of 5 in the left lower extremity 5 out of 5 in right lower extremity. There is still mild sensory deficit of the left lower extremity. Cranial nerves II through XII are globally intact. No tremors or seizure-like activities are seen. - Labs CBC & Chem 7: 10/21/17 13:54 10/21/17 13:54 Labs: Abnormal Lab Results - Last 24 Hours (Table) 10/22/17 10/23/17 Range/Units 20:54 06:12 POC Glucose (mg/dL) 168 H 53 L (75-99) mg/dL Assessment and Plan (1) Left hemiparesis Current Visit: Yes Status: Acute Code(s): G81.94 - HEMIPLEGIA, UNSPECIFIED AFFECTING LEFT NONDOMINANT SIDE SNOMED Code(s): 590891947 (2) Dysarthria Current Visit: Yes Status: Resolved Code(s): R47.1 - DYSARTHRIA AND ANARTHRIA SNOMED Code(s): 0387647 (3) Hypertension Current Visit: Yes Status: Chronic Code(s): I10 - ESSENTIAL (PRIMARY) HYPERTENSION SNOMED Code(s): 72868573 (4) Dyslipidemia Current Visit: Yes Status: Chronic Code(s): E78.5 - HYPERLIPIDEMIA, UNSPECIFIED SNOMED Code(s): 661660738 (5) Diabetes Current Visit: Yes Status: Chronic Code(s): E11.9 - TYPE 2 DIABETES MELLITUS WITHOUT COMPLICATIONS SNOMED Code(s): 57207644 (6) Left-sided sensory deficit present Current Visit: Yes Status: Resolved Code(s): R41.89 - OTH SYMPTOMS AND SIGNS W COGNITIVE FUNCTIONS AND AWARENESS SNOMED Code(s): 300555344 (7) PAINT POURER demyelination Current Visit: Yes Status: Suspected Code(s): G37.9 - DEMYELINATING DISEASE OF CENTRAL NERVOUS SYSTEM, UNSPECIFIED SNOMED Code(s): 9175125 (8) White matter changes Current Visit: Yes Status: Chronic Code(s): QAU8332 - SNOMED Code(s): 320074785 Plan: MRI results as above were discussed with the patient and may be indicative of demyelinating disease such as multiple sclerosis. Her CT shows a possible old stroke but this area of encephalomalacia was not addressed and the MRI. We have asked radiology to take a second look and make comment on this area. She had been placed on aspirin 325 mg because she had reported not taking aspirin previously. She does report to me that she was taking 81 mg of aspirin. We will discontinue aspirin and start her on Plavix. She has been started on Lipitor and she will continue this. If her symptoms are new from a demyelinating process they would respond to corticosteroids. I will start her on 125 mg Solu-Medrol IV every 8 hours. She is already on sliding scale insulin. Recommend physical, occupational, and speech therapy. Strongly recommend smoking cessation. We will continue to follow. I have performed a history and physical on the above patient. I have reviewed the above note, and agree.
[2017-10-23 16:20] LABS: Glucose,Whole Blood 168 mg/dL (75-99)
[2017-10-23] MEDS: HYDROCHLOROTHIAZIDE 25 MG TAB PO SCH (17:07)
[2017-10-23] MEDS: DIAZEPAM 2 MG TAB PO PRN (20:15)
[2017-10-23] MEDS: ATORVASTATIN 40 MG TAB PO SCH (20:16)
[2017-10-23 20:42] LABS: Glucose,Whole Blood 297 mg/dL (75-99)
[2017-10-23] MEDS: INSULIN DETEMIR 100 UNIT/ML 10 ML VIAL SQ SCH (20:52)
[2017-10-24] MEDS: HEPARIN SODIUM,PORCINE 5,000 UNIT/ML 1 ML VIAL SQ SCH ×4 (00:28→23:52)
[2017-10-24] MEDS: methylPREDNISolone SOD SUCCI 125 MG/2 ML VIAL IV SCH ×4 (00:28→23:52)
[2017-10-24 06:06] LABS: Glucose,Whole Blood 169 mg/dL (75-99)
[2017-10-24] MEDS: INSULIN ASPART 100 UNIT/ML 1 ML 10 ML VIAL SQ SCH ×4 (06:11→21:29)
[2017-10-24] MEDS: CLOPIDOGREL 75 MG TAB PO SCH (08:44)
[2017-10-24] MEDS: cloNIDine HCL 0.2 MG TAB PO SCH ×2 (08:45→21:23)
[2017-10-24] MEDS: ALLOPURINOL 300 MG TAB PO SCH (08:45)
[2017-10-24] MEDS: LISINOPRIL 20 MG TAB PO SCH (08:45)
[2017-10-24] MEDS: ATENOLOL 50 MG TAB PO SCH ×2 (08:45→21:24)
[2017-10-24] MEDS: COLCHICINE 0.6 MG EACH PO SCH (08:45)
[2017-10-24] MEDS: HYDROCHLOROTHIAZIDE 25 MG TAB PO SCH (08:46)
[2017-10-24] MEDS: GABAPENTIN 100 MG CAP PO SCH ×2 (08:46→21:23)
[2017-10-24] MEDS: POTASSIUM CHLORIDE ER 20 MEQ TAB.ER PO SCH ×2 (08:47→21:24)
[2017-10-24] MEDS: metFORMIN 500 MG TAB PO SCH ×2 (08:47→21:24)
[2017-10-24 11:07] LABS: Glucose,Whole Blood 141 mg/dL (75-99)
--- NOTE | 2017-10-24 12:46 | P.PN ---
Subjective Progress Note Date: 10/24/17 56-year-old female who originally presented to the emergency room on with complaints of left leg numbness and weakness. The patient has a history of diabetes mellitus, hypertension, chronic gout, and tobacco use. Patient smokes [address] brain revealed encephalomalacia within the left cerebellar hemisphere progressed from the prior exam. No acute intracranial process. CT head and neck angio revealed no large vessel focal occlusion of the head or neck. Multifocal calcific arheromatous plaquing of the carotid bulbs (less than 50%) left vertebral artery, cavernous portions and supra clinoid portions of the internal carotid arteries (approximately 50%) and aortic arch. No evidence of intracranial aneurysm. Chest x-ray: Negative for an acute process Echocardiogram: Ejection fraction estimated between 55 and 60%, mild aortic regurgitation, mild mitral regurgitation, and mild tricuspid regurgitation. MRI of the brain: Mild atrophy. White matter signal changes likely related to demyelinating disease. Chronic small vessel ischemia as possible. There is pronounced atrophy of the inferior aspect posterior left cerebral hemisphere consistent with encephalomalacia. This probably relates to an old infarct and appears unchanged compared to computed tomography scan. 10/24/2017 Patient seen and examined at the bedside in rounds Dr. Armijo. Patient has been evaluated by neurology and reports patient may have multiple sclerosis. Patient was started on high-dose Solu-Medrol. Patient states that she feels better this morning. She reports she has been able to ambulate to the bathroom. She reports her numbness has improved. She denies chest pain or pressure. Denies shortness of breath. Denies cough. Denies nausea or vomiting. Blood pressure has been stable with a last reading of 149/65. Heart rate is in the 60s. She is afebrile. She is maintaining oxygen saturations greater than 92% on room air. The patient reported frustration with covering physician over the weekend as her hydrochlorothiazide was decreased to daily. She reports that she was taking it twice a day. Hydrochlorothiazide was decreased to once daily secondary to patient's chronic gout. Her blood pressure has remained stable but patient was reassured that blood pressure would continue to be monitored and adjustments will be made to her medication regimen as needed. Objective - Vital Signs Vital signs: Vital Signs Temp 98 F 10/24/17 08:37 Pulse 60 10/24/17 08:37 Resp 16 06/18/18 08:37 BP 149/65 10/24/17 08:37 Pulse Ox 93 L 10/24/17 08:37 Intake & Output 10/23/17 10/24/17 10/24/17 18:59 06:59 18:59 Intake Total 840 480 222 Balance 840 480 222 Weight 74.4 kg Intake: Oral 840 480 222 Other: Voiding Method Bedside Commode Bedside Commode Bedside Commode # Voids 1 0 # Bowel Movements 0 - Exam GENERAL: This is a 56-year-old female in no apparent distress at the time of examination. Pleasant and cooperative. HEENT: Head is atraumatic, normocephalic. Pupils are equal, round, and reactive to light. Sclerae anicteric. Conjunctivae are clear. Mucus membranes of the mouth are moist. Neck is supple. RESPIRATORY: Clear to ausculation. No wheezes, rales, or rhonchi. No use of accessory muscles. Patient maintaining oxygen saturation greater than 92%. No chest wall tenderness is noted on palpation or with deep breathing. CARDIOVASCULAR: Regular rate and rhythm. S1 and S2 noted. No systolic or diastolic murmur auscultated. No JVD noted. No S3 or S4 noted. GASTROINTESTINAL: No distention noted. Abdomen soft and round. Normal active bowel sounds auscultated x 4 quadrants. No pain or tenderness noted upon palpation. INTEGUMENTARY: No cyanosis. No jaundice. No rashes noted. No cellulitis noted. EXTREMITIES: Left lower extremity weakness noted with mild sensory deficit present. 2+ peripheral pulses. No evidence of peripheral edema. No calf tenderness noted. NEUROLOGIC: Cranial nerves II-XII intact. PSYCHIATRIC: Awake, alert, and oriented X 3. Appropriate affect. Intact judgement and insight. 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 Appreciate recommendations and input Continue IV Solu-Medrol per neurology: 125 mg every 8 hours Aspirin discontinued per neurology. Patient started on Plavix and Lipitor. Continue to monitor blood pressure. Home meds as appropriate Smoking cessation Monitor labs PT/OT GI prophylaxis: Protonix 40 mg PO Daily DVT prophylaxis: Heparin 5000 units subcu every 8 hours Monitor vital signs and address as appropriate Discharge planning: Home with home care versus subacute rehab Further recommendations pending patient's course Nurse practitioner note has been reviewed by physician. Signing provider agrees with the documented findings, assessment, and plan of care.
--- NOTE | 2017-10-24 15:31 | P.PN ---
Subjective Progress Note Date: 10/24/17 Principal diagnosis: Left leg weakness This is a pleasant 56-year-old female continuing to be evaluated by the neurology office for the above complaints. Recall that her symptoms started when she woke up with left leg numbness which proceeded to some weakness. She also had some left facial numbness and slurred speech. She was brought in for evaluation of possible stroke. She has a significant history of hypertension diabetes and smoking. Recall that CT of the brain showed no acute intracranial abnormalities. It did however show an old area of encephalomalacia within the left cerebellar hemisphere which had progressed from the prior exam of 2014. Subsequently, an MRI was ordered with and without contrast. The MRI showed patchy areas of increased signal in the periventricular white matter. There were more than 25 lesions. Largest of which was 10 mm. There was also some patchy increased signal within the central jenny bilaterally. There was no evidence of any cortical infarct. There was no pathological enhancement. We initiated IV steroids and she says her left leg symptoms are almost resolved. At the time of my exam she is resting comfortably in her bedside chair in no acute distress. She is now having no speech or swallowing problems. Objective - Vital Signs Vital signs: Vital Signs Temp 97.8 F 10/24/17 12:00 Pulse 62 10/24/17 12:00 Resp 16 10/24/17 12:00 BP 140/68 10/24/17 12:00 Pulse Ox 94 L 10/24/17 12:00 Intake & Output 10/23/17 10/24/17 10/24/17 18:59 06:59 18:59 Intake Total 840 480 462 Output Total 800 Balance 840 480 -338 Weight 74.4 kg Intake: Oral 840 480 462 Output: Urine 800 Other: Voiding Method Bedside Commode Bedside Commode Bedside Commode # Voids 1 0 3 # Bowel Movements 0 - Constitutional General appearance: Present: cooperative, no acute distress - EENT Eyes: Present: PERRLA. Absent: abnormal pupil, ptosis ENT: Present: hearing grossly normal - Neck Neck: Present: normal ROM. Absent: rigidity - Respiratory Respiratory: negative: prolonged expiration, prolonged inspiration - Cardiovascular Rhythm: regular - Neurologic Neurologic Comment(s): She is awake alert and oriented 3. Speech-language are normal. There is no facial asymmetry. Facial numbness has resolved. Strength is 5 out of 5 in bilateral upper extremities 5 minus out of 5 in the left lower extremity 5 out of 5 in the right lower extremity. No sensory deficit in the lower extremities. No tremors or seizure-like activities are seen. Cranial nerves II through XII are globally intact except for conjugate gaze abnormality. She has some resting exophthalmos of the right I and delayed abduction of the right eye on conjugate gaze. This finding may be consistent with intranuclear ophthalmoplegia. She denies diplopia. She says this is a relatively new finding that her son has noticed within the past month or 2. - Labs CBC & Chem 7: 10/21/17 13:54 10/21/17 13:54 Labs: Abnormal Lab Results - Last 24 Hours (Table) 10/23/17 10/23/17 10/24/17 Range/Units 16:17 20:40 06:04 POC Glucose (mg/dL) 168 H 297 H 169 H (75-99) mg/dL 10/24/17 Range/Units 11:04 POC Glucose (mg/dL) 141 H (75-99) mg/dL Assessment and Plan (1) Left hemiparesis Current Visit: Yes Status: Acute Code(s): G81.94 - HEMIPLEGIA, UNSPECIFIED AFFECTING LEFT NONDOMINANT SIDE SNOMED Code(s): 167347728 (2) Dysarthria Current Visit: Yes Status: Resolved Code(s): R47.1 - DYSARTHRIA AND ANARTHRIA SNOMED Code(s): 0307443 (3) Hypertension Current Visit: Yes Status: Chronic Code(s): I10 - ESSENTIAL (PRIMARY) HYPERTENSION SNOMED Code(s): 22784998 (4) Dyslipidemia Current Visit: Yes Status: Chronic Code(s): E78.5 - HYPERLIPIDEMIA, UNSPECIFIED SNOMED Code(s): 264419226 (5) Diabetes Current Visit: Yes Status: Chronic Code(s): E11.9 - TYPE 2 DIABETES MELLITUS WITHOUT COMPLICATIONS SNOMED Code(s): 45946578 (6) Left-sided sensory deficit present Current Visit: Yes Status: Resolved Code(s): R41.89 - OTH SYMPTOMS AND SIGNS W COGNITIVE FUNCTIONS AND AWARENESS SNOMED Code(s): 645184853 (7) GAS [employer] demyelination Current Visit: Yes Status: Suspected Code(s): G37.9 - DEMYELINATING DISEASE OF CENTRAL NERVOUS SYSTEM, UNSPECIFIED SNOMED Code(s): 4581434 (8) White matter changes Current Visit: Yes Status: Chronic Code(s): QHK6007 - SNOMED Code(s): 850612993 (9) Internuclear ophthalmoplegia Current Visit: Yes Status: Acute Code(s): H51.20 - INTERNUCLEAR OPHTHALMOPLEGIA, UNSPECIFIED EYE SNOMED Code(s): 57253060 Plan: MRI results as above were discussed with the patient and may be indicative of demyelinating disease such as multiple sclerosis. Her CT shows a possible old stroke but this area of encephalomalacia was not addressed on the MRI. We have asked radiology to take a second look and make comment on this area. She will continue Plavix. She has been started on Lipitor and she will continue this. Her symptoms are resolving on 125 mg Solu-Medrol IV every 8 hours, which does lean towards a diagnosis of multiple sclerosis. Her more pronounced finding today of intranuclear ophthalmoplegia also leans towards the diagnosis. She will need further outpatient testing to verify her diagnosis and start medications as needed. Recommend physical, occupational, and speech therapy. Strongly recommend smoking cessation. I have performed a history and physical on the above patient. I have reviewed the above note, and agree.
[2017-10-24 16:40] LABS: Glucose,Whole Blood 208 mg/dL (75-99)
[2017-10-24 20:34] LABS: Glucose,Whole Blood 272 mg/dL (75-99)
[2017-10-24] MEDS: ATORVASTATIN 40 MG TAB PO SCH (21:23)
[2017-10-24] MEDS: DIAZEPAM 2 MG TAB PO PRN (21:28)
[2017-10-24] MEDS: INSULIN DETEMIR 100 UNIT/ML 10 ML VIAL SQ SCH (21:29)
[2017-10-25 00:08] LABS: Glucose,Whole Blood 259 mg/dL (75-99)
[2017-10-25 05:37] LABS: Glucose,Whole Blood 192 mg/dL (75-99)
[2017-10-25] MEDS: INSULIN ASPART 100 UNIT/ML 1 ML 10 ML VIAL SQ SCH ×4 (06:30→23:07)
[2017-10-25] MEDS: PANTOPRAZOLE 40 MG TABLET PO SCH (06:30)
--- NOTE | 2017-10-25 08:56 | P.PN ---
Subjective Progress Note Date: 10/25/17 56-year-old female who originally presented to the emergency room on with complaints of left leg numbness and weakness. The patient has a history of diabetes mellitus, hypertension, chronic gout, and tobacco use. Patient smokes [address] brain revealed encephalomalacia within the left cerebellar hemisphere progressed from the prior exam. No acute intracranial process. CT head and neck angio revealed no large vessel focal occlusion of the head or neck. Multifocal calcific arheromatous plaquing of the carotid bulbs (less than 50%) left vertebral artery, cavernous portions and supra clinoid portions of the internal carotid arteries (approximately 50%) and aortic arch. No evidence of intracranial aneurysm. Chest x-ray: Negative for an acute process Echocardiogram: Ejection fraction estimated between 55 and 60%, mild aortic regurgitation, mild mitral regurgitation, and mild tricuspid regurgitation. MRI of the brain: Mild atrophy. White matter signal changes likely related to demyelinating disease. Chronic small vessel ischemia as possible. There is pronounced atrophy of the inferior aspect posterior left cerebral hemisphere consistent with encephalomalacia. This probably relates to an old infarct and appears unchanged compared to computed tomography scan. 10/24/2017 Patient seen and examined at the bedside in rounds Dr. rAmijo. Patient has been evaluated by neurology and reports patient may have multiple sclerosis. Patient was started on high-dose Solu-Medrol. Patient states that she feels better this morning. She reports she has been able to ambulate to the bathroom. She reports her numbness has improved. She denies chest pain or pressure. Denies shortness of breath. Denies cough. Denies nausea or vomiting. Blood pressure has been stable with a last reading of 149/65. Heart rate is in the 60s. She is afebrile. She is maintaining oxygen saturations greater than 92% on room air. The patient reported frustration with covering physician over the weekend as her hydrochlorothiazide was decreased to daily. She reports that she was taking it twice a day. Hydrochlorothiazide was decreased to once daily secondary to patient's chronic gout. Her blood pressure has remained stable but patient was reassured that blood pressure would continue to be monitored and adjustments will be made to her medication regimen as needed. 10/25/2017 Patient seen and examined at the bedside on rounds with Dr. Armijo. Patient continues on high dose solumedral of 125mg Q8 hours. She has noted improvement in her lower extremity weakness. Patient reports she has been able to ambulate to the bathroom. Denies chest pain or pressure. Denies shortness of breath. Vital signs remain stable. Patient has worked with physical therapy and reports she ambulated in the hallway yesterday. Objective - Vital Signs Vital signs: Vital Signs Temp 98.1 F 10/25/17 07:52 Pulse 54 L 10/25/17 07:52 Resp 19 10/25/17 07:52 BP 141/79 10/25/17 07:52 Pulse Ox 99 10/25/17 07:52 Intake & Output 10/24/17 10/25/17 10/25/17 18:59 06:59 18:59 Intake Total 702 Output Total 800 Balance -98 Weight 73.6 kg Intake: Oral 702 Output: Urine 800 Other: Voiding Method Bedside Commode Bedside Commode # Voids 3 1 - Exam GENERAL: This is a 56-year-old female in no apparent distress at the time of examination. Pleasant and cooperative. HEENT: Head is atraumatic, normocephalic. Pupils are equal, round, and reactive to light. Sclerae anicteric. Conjunctivae are clear. Mucus membranes of the mouth are moist. Neck is supple. RESPIRATORY: Clear to ausculation. No wheezes, rales, or rhonchi. No use of accessory muscles. Patient maintaining oxygen saturation greater than 92%. No chest wall tenderness is noted on palpation or with deep breathing. CARDIOVASCULAR: Regular rate and rhythm. S1 and S2 noted. No systolic or diastolic murmur auscultated. No JVD noted. No S3 or S4 noted. GASTROINTESTINAL: No distention noted. Abdomen soft and round. Normal active bowel sounds auscultated x 4 quadrants. No pain or tenderness noted upon palpation. INTEGUMENTARY: No cyanosis. No jaundice. No rashes noted. No cellulitis noted. EXTREMITIES: Minimal left lower extremity weakness noted. 2+ peripheral pulses. No evidence of peripheral edema. No calf tenderness noted. NEUROLOGIC: Cranial nerves II-XII intact. PSYCHIATRIC: Awake, alert, and oriented X 3. Appropriate affect. Intact judgement and insight. 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 Appreciate recommendations and input Would recommend weaning steroids so patient may be transitioned to oral steroids in the next day or so in anticipation of discharge. Will defer to neurology. Aspirin discontinued per neurology. Patient started on Plavix and Lipitor. Continue to monitor blood pressure. Home meds as appropriate Smoking cessation Monitor labs PT/OT GI prophylaxis: Protonix 40 mg PO Daily DVT prophylaxis: Heparin 5000 units subcu every 8 hours Monitor vital signs and address as appropriate Discharge planning: Home with home care versus subacute rehab Further recommendations pending patient's course Nurse practitioner note has been reviewed by physician. Signing provider agrees with the documented findings, assessment, and plan of care.
[2017-10-25] MEDS: methylPREDNISolone SOD SUCCI 125 MG/2 ML VIAL IV SCH ×2 (09:38→17:25)
[2017-10-25] MEDS: HEPARIN SODIUM,PORCINE 5,000 UNIT/ML 1 ML VIAL SQ SCH ×3 (09:38→23:13)
[2017-10-25] MEDS: ATENOLOL 50 MG TAB PO SCH ×2 (09:39→23:07)
[2017-10-25] MEDS: ALLOPURINOL 300 MG TAB PO SCH (09:39)
[2017-10-25] MEDS: cloNIDine HCL 0.2 MG TAB PO SCH ×2 (09:39→23:07)
[2017-10-25] MEDS: CLOPIDOGREL 75 MG TAB PO SCH (09:40)
[2017-10-25] MEDS: GABAPENTIN 100 MG CAP PO SCH ×2 (09:40→23:07)
[2017-10-25] MEDS: LISINOPRIL 20 MG TAB PO SCH (09:40)
[2017-10-25] MEDS: HYDROCHLOROTHIAZIDE 25 MG TAB PO SCH (09:40)
[2017-10-25] MEDS: COLCHICINE 0.6 MG EACH PO SCH (09:40)
[2017-10-25] MEDS: POTASSIUM CHLORIDE ER 20 MEQ TAB.ER PO SCH ×2 (09:41→23:09)
[2017-10-25] MEDS: metFORMIN 500 MG TAB PO SCH ×2 (09:41→23:09)
[2017-10-25 09:51] LABS: Basophils # (A) 0.1 k/uL (0-0.2); Basophils % (A) 0 %; Eosinophils % (A) 0 %; HCT 44.8 % (34.0-46.0); HGB 15.4 gm/dL (11.4-16.0); Lymphocytes # (A) 1.6 k/uL (1.0-4.8); Lymphocytes % (A) 8 %; MCH 31.3 pg (25.0-35.0); MCHC 34.4 g/dL (31.0-37.0); Mean Platelet Volume 8.5; Monocytes # (A) 0.7 k/uL (0-1.0); Monocytes % (A) 3 %; Neutrophils # (A) 17.4 k/uL (1.3-7.7); Neutrophils % (A) 88 %; Platelet Count 286 k/uL (150-450); RBC 4.92 m/uL (3.80-5.40); RDW 13.7 % (11.5-15.5); WBC 19.8 k/uL (3.8-10.6)
[2017-10-25 10:18] LABS: ALT 34 U/L (9-52); AST 16 U/L (14-36); Albumin 4.7 g/dL (3.5-5.0); Alkaline Phosphatase 86 U/L (38-126); Anion Gap 18 mmol/L; Blood Urea Nitrogen 26 mg/dL (7-17); Calcium 10.6 mg/dL (8.4-10.2); Carbon Dioxide 19 mmol/L (22-30); Chloride 103 mmol/L (98-107); Glucose 197 mg/dL (74-99); Potassium 4.2 mmol/L (3.5-5.1); Sodium 140 mmol/L (137-145); Total Bilirubin 0.7 mg/dL (0.2-1.3); Total Protein 7.2 g/dL (6.3-8.2)
[2017-10-25 12:28] LABS: Glucose,Whole Blood 212 mg/dL (75-99)
[2017-10-25 17:32] LABS: Glucose,Whole Blood 209 mg/dL (75-99)
[2017-10-25 20:33] LABS: Glucose,Whole Blood 298 mg/dL (75-99)
[2017-10-25] MEDS: DIAZEPAM 2 MG TAB PO PRN (23:06)
[2017-10-25] MEDS: ATORVASTATIN 40 MG TAB PO SCH (23:07)
[2017-10-25] MEDS: INSULIN DETEMIR 100 UNIT/ML 10 ML VIAL SQ SCH (23:08)
[2017-10-26 02:56] LABS: Glucose,Whole Blood 198 mg/dL (75-99)
[2017-10-26 07:32] LABS: Glucose,Whole Blood 132 mg/dL (75-99)
[2017-10-26] MEDS: ALLOPURINOL 300 MG TAB PO SCH (07:44)
[2017-10-26] MEDS: HYDROCHLOROTHIAZIDE 25 MG TAB PO SCH (07:44)
[2017-10-26] MEDS: INSULIN ASPART 100 UNIT/ML 1 ML 10 ML VIAL SQ SCH ×2 (07:44→12:03)
[2017-10-26] MEDS: COLCHICINE 0.6 MG EACH PO SCH (07:46)
[2017-10-26] MEDS: PANTOPRAZOLE 40 MG TABLET PO SCH (07:46)
[2017-10-26] MEDS: LISINOPRIL 20 MG TAB PO SCH (07:46)
[2017-10-26] MEDS: CLOPIDOGREL 75 MG TAB PO SCH (07:46)
[2017-10-26] MEDS: ATENOLOL 50 MG TAB PO SCH (07:46)
[2017-10-26] MEDS: cloNIDine HCL 0.2 MG TAB PO SCH (07:46)
[2017-10-26] MEDS: metFORMIN 500 MG TAB PO SCH (07:46)
[2017-10-26] MEDS: POTASSIUM CHLORIDE ER 20 MEQ TAB.ER PO SCH (07:47)
[2017-10-26] MEDS: GABAPENTIN 100 MG CAP PO SCH (07:47)
[2017-10-26] MEDS: HEPARIN SODIUM,PORCINE 5,000 UNIT/ML 1 ML VIAL SQ SCH ×2 (07:51→15:18)
[2017-10-26 08:14] VITALS: RESP 16
[2017-10-26] MEDS ORDERED: hydrALAZINE HCL 10 MG TAB PO SCH (09:15)
--- NOTE | 2017-10-26 11:02 | P.DS ---
Providers Date of admission: 10/21/17 15:36 Expected date of discharge: 10/26/17 Attending physician: Rene Armijo Consults: 10/21/17 15:36 Consult Physician Routine Consulting Provider: Kat Stapleton Consult Reason/Comments: CVA Do you want consulting provider notified?: Yes Primary care physician: Rene Armijo [facility] Course: 56-year-old female who originally presented to the emergency room on with complaints of left leg numbness and weakness. The patient has a history of diabetes mellitus, hypertension, chronic gout, and tobacco use. Patient smokes [address] brain revealed encephalomalacia within the left cerebellar hemisphere progressed from the prior exam. No acute intracranial process. CT head and neck angio revealed no large vessel focal occlusion of the head or neck. Multifocal calcific arheromatous plaquing of the carotid bulbs (less than 50%) left vertebral artery, cavernous portions and supra clinoid portions of the internal carotid arteries (approximately 50%) and aortic arch. No evidence of intracranial aneurysm. Chest x-ray: Negative for an acute process Echocardiogram: Ejection fraction estimated between 55 and 60%, mild aortic regurgitation, mild mitral regurgitation, and mild tricuspid regurgitation. MRI of the brain: Mild atrophy. White matter signal changes likely related to demyelinating disease. Chronic small vessel ischemia as possible. There is pronounced atrophy of the inferior aspect posterior left cerebral hemisphere consistent with encephalomalacia. This probably relates to an old infarct and appears unchanged compared to computed tomography scan. 10/24/2017 Patient seen and examined at the bedside in rounds Dr. Armijo. Patient has been evaluated by neurology and reports patient may have multiple sclerosis. Patient was started on high-dose Solu-Medrol. Patient states that she feels better this morning. She reports she has been able to ambulate to the bathroom. She reports her numbness has improved. She denies chest pain or pressure. Denies shortness of breath. Denies cough. Denies nausea or vomiting. Blood pressure has been stable with a last reading of 149/65. Heart rate is in the 60s. She is afebrile. She is maintaining oxygen saturations greater than 92% on room air. The patient reported frustration with covering physician over the weekend as her hydrochlorothiazide was decreased to daily. She reports that she was taking it twice a day. Hydrochlorothiazide was decreased to once daily secondary to patient's chronic gout. Her blood pressure has remained stable but patient was reassured that blood pressure would continue to be monitored and adjustments will be made to her medication regimen as needed. 10/25/2017 Patient seen and examined at the bedside on rounds with Dr. Armijo. Patient continues on high dose solumedral of 125mg Q8 hours. She has noted improvement in her lower extremity weakness. Patient reports she has been able to ambulate to the bathroom. Denies chest pain or pressure. Denies shortness of breath. Vital signs remain stable. Patient has worked with physical therapy and reports she ambulated in the hallway yesterday. 10/26/2017 Patient seen and examined at the bedside. Patient has completed her 3 day course of high-dose steroids ordered per neurology. The patient states she is feeling well this morning and has been able to really without difficulty. The patient is hemodynamically stable. She was deemed stable for discharge to [facility] ( [facility]) pending insurance authorization. She is to follow up on an outpatient basis with Dr. Armijo and neurology. 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 Signing provider agrees with the documented findings, assessment, and plan of care. Patient Condition at Discharge: Stable Plan - Discharge Summary Discharge Rx Participant: No New Discharge Prescriptions: New Atorvastatin [Lipitor] 40 mg PO HS #30 tab cloNIDine HCL [Catapres] 0.2 mg PO BID #60 tab Clopidogrel [Plavix] 75 mg PO DAILY #30 tab Hydrochlorothiazide [Hydrodiuril] 25 mg PO DAILY #30 tab Continue Naproxen Sodium [Aleve] 220 mg PO Q12HR PRN PRN Reason: Pain Gabapentin [Neurontin] 200 mg PO BID metFORMIN HCL ER [Glucophage Xr] 500 mg PO BID Potassium Chloride [Klor-Con Sprinkle] 40 meq PO BID Insulin Glargine,Hum.rec.anlog [Lantus Solostar] 50 unit SQ HS Atenolol [Tenormin] 50 mg PO BID Enalapril [Vasotec] 20 mg PO BID Colchicine [Colcrys] 0.6 mg PO DAILY Allopurinol [Zyloprim] 150 mg PO DAILY hydrALAZINE HCL [Apresoline] 10 mg PO BID Diazepam [Valium] 2 mg PO TID PRN #9 tab PRN Reason: Anxiety Discontinued cloNIDine HCL 0.3 mg PO BID Hydrochlorothiazide [Hydrodiuril] 25 mg PO BID hydrALAZINE HCL [Apresoline] 10 mg PO BID Discharge Medication List Atenolol [Tenormin] 50 mg PO BID 03/29/17 [History] Enalapril [Vasotec] 20 mg PO BID 03/29/17 [History] Gabapentin [Neurontin] 200 mg PO BID 03/29/17 [History] Insulin Glargine,Hum.rec.anlog [Lantus Solostar] 50 unit SQ HS 03/29/17 [History ] Naproxen Sodium [Aleve] 220 mg PO Q12HR PRN 03/29/17 [History] Potassium Chloride [Klor-Con Sprinkle] 40 meq PO BID 03/29/17 [History] metFORMIN HCL ER [Glucophage Xr] 500 mg PO BID 03/29/17 [History] Allopurinol [Zyloprim] 150 mg PO DAILY 10/21/17 [History] Colchicine [Colcrys] 0.6 mg PO DAILY 10/21/17 [History] Atorvastatin [Lipitor] 40 mg PO HS #30 tab 10/25/17 [Rx] Clopidogrel [Plavix] 75 mg PO DAILY #30 tab 10/25/17 [Rx] Hydrochlorothiazide [Hydrodiuril] 25 mg PO DAILY #30 tab 10/25/17 [Rx] cloNIDine HCL [Catapres] 0.2 mg PO BID #60 tab 10/25/17 [Rx] Diazepam [Valium] 2 mg PO TID PRN #9 tab 10/26/17 [Rx] hydrALAZINE HCL [Apresoline] 10 mg PO BID 10/26/17 [History] Follow up Appointment(s)/Referral(s): Rene Armijo DO [Primary Care Provider] - 10/31/17 3:00 pm Kat Stapleton MD [STAFF PHYSICIAN] - 1 Week
[2017-10-26 12:00] LABS: Glucose,Whole Blood 117 mg/dL (75-99)
[2017-10-26 16:04] VITALS: BP 124/63; PULSE 57; TEMP 97.5
== END 2017-10-26 16:23 | DRG 60 ==
LOC: EC 13:28 → 6SEL 15:36 → 4MS4W 10-25 06:55
PROVIDERS: ADMIT Family Medicine; ATTEND Family Medicine
DX: G37.9 Demyelinating disease of central nervous system, unspecified (principal); E11.65 Type 2 diabetes mellitus with hyperglycemia; E66.9 Obesity, unspecified; E78.00 Pure hypercholesterolemia, unspecified; E78.5 Hyperlipidemia, unspecified; F17.210 Nicotine dependence, cigarettes, uncomplicated; H51.20 Internuclear ophthalmoplegia, unspecified eye; I08.3 Combined rheumatic disorders of mitral, aortic and tricuspid valves; I10 Essential (primary) hypertension; I48.91 Unspecified atrial fibrillation; M1A.9XX1 Chronic gout, unspecified, with tophus (tophi); Z68.30 Body mass index [BMI] 30.0-30.9, adult; Z79.01 Long term (current) use of anticoagulants; Z79.4 Long term (current) use of insulin; Z79.82 Long term (current) use of aspirin; Z82.3 Family history of stroke; Z82.49 Family history of ischemic heart disease and other diseases of the circulatory system; Z90.710 Acquired absence of both cervix and uterus; I69.398 Other sequelae of cerebral infarction; G93.89 Other specified disorders of brain
CPT/HCPCS: 36415; 70450; 70496; 70498; 70553; 71046; 80053; 80061; 82550; 82553; 83036; 84484; 85025; 85610; 85730; 93005; 93306; 94760; 99285

== ENCOUNTER → 2017-12-24 | Outpatient (CLI) | payer OTHER ==
--- NOTE | 2017-12-25 21:17 | MR ---
MRI CERVICAL SPINE: CLINICAL HISTORY: G 36 multiple sclerosis per order. Bilateral arm and finger pain or weakness per pa tient. TECHNIQUE: Multiplanar, multisequence imaging of the cervical spine is performed without and with IV contrast, 7.5 cc of gadolinium was given intravenously. Demyelinating disease protocol with additiona l PD sagittal sequence of cervical spine acquired. COMPARISON: CTA neck October 21, 2017. FINDINGS: Sagittal images of the cervical spine show the craniocervical junction to remain within nor mal limits. The cervical and upper thoracic spinal cord is normal in course and caliber. There is f ocal increased signal centered C5 level on sagittal image 6. Vertebral alignment is anatomic. Moderat e disc space narrowing C5-C6 level is seen with moderate anterior spurring and heterogeneous Modic ty pe I degenerative endplate changes. The vertebral body and intravertebral disk heights otherwise are normal. Large posterior disc herniation C4-C5 and even greater C5-C6 level are effacing anterior the dorys sac of the ventral surface of spinal cord. Smaller herniation noted at C4-C5 and C6-C7 level on s agittal images. No suspicious enhancement is noted. Axial images show the C2-C3 level to appear within normal limits. Axial images at the C3-C4 level showed lobulated broad-based posterior disc protrusions effacing the anterolateral thecal sac and causing asymmetric moderate right-sided neural foraminal narrowing due t o marginal spurring. Axial images at C4-C5 level shows more prominent broad-based posterior spur disc complex effacing ant erior thecal sac up to ventral surface of spinal cord with marginal spurring causing advanced bilater al neural foraminal narrowing. Axial images at C5-C6 level shows even more prominent broad-based right paracentral spur disc complex effacing anterior thecal sac with increased cord signal, there is advanced right and moderate left-s ided neural foraminal narrowing. Axial images at the C6-C7 level show right paracentral/foraminal spur disc complex effacing anterior thecal sac with moderate right greater than left bilateral neural foraminal narrowing noted. Axial images at the C7-T1 level are felt within normal limits. There is redemonstration of subcentimeter cystic nodule posterior right thyroid lobe axial image 12 m easuring 7 mm on MRI. Tortuous medial course to the right carotid artery causing mass effect on the p osterior oral pharynx is also redemonstrated superiorly. IMPRESSION: Multilevel degenerative changes in the cervical spine as detailed above. Largest herniati ons and spurring contributing to most prominent spinal canal effacement at C4-C5 and stenosis C5-C6 l evel with abnormal cord edema noted. Neurosurgical referral advised.
== END | disposition home or self-care (01) ==
LOC: RADMRIMAIN 12:53
PROVIDERS: ATTEND Psychiatry & Neurology Vascular Neurology
DX: M48.02 Spinal stenosis, cervical region (principal); M50.221 Other cervical disc displacement at C4-C5 level; M47.812 Spondylosis without myelopathy or radiculopathy, cervical region; G35 Multiple sclerosis; Z51.81 Encounter for therapeutic drug level monitoring
CPT/HCPCS: 82565; 84520; 72156; 36415; A9581

== ENCOUNTER 2018-11-02 10:45 | Inpatient (IN) | payer OTHER ==
--- NOTE | 2018-11-02 11:14 | ED ---
Extremity Problem HPI <Sloan Kapadia - Last Filed: 11/02/18 12:39> - General Source: patient Mode of arrival: ambulatory Limitations: no limitations <Joanie Merchant - Last Filed: 11/02/18 14:27> - General Chief complaint: Extremity Problem,Nontraumatic Stated complaint: diabetic foot ulcer Time Seen by Provider: 11/02/18 10:56 - History of Present Illness Initial comments: 58-year-old female presenting for left foot blister x months. Patient states she has had a blister on her left bottom foot for quite some time. Patient states she has bad blood flow to the legs and has seen Dr. Hunt for her right lower extremity. He states she states she didnt have complaints or have him examine the left lower extremity. She states that the blister has been getting worse and her family noticed it recommended she present emergency department. They noted a foul odor. Patient denies any pain. Patient states she has diabetic retinopathy. Patient denies any fever or chills night sweats vomiting diarrhea. Remaining review of systems negative upon arrival patient appears well no signs of acute distress. (Joanie Merchant) - Related Data Home Medications Medication Instructions Recorded Confirmed Atenolol [Tenormin] 50 mg PO BID 03/29/17 11/02/18 Enalapril [Vasotec] 20 mg PO BID 03/29/17 11/02/18 Gabapentin [Neurontin] 200 mg PO TID 03/29/17 11/02/18 Insulin Glargine,Hum.rec.anlog 30 unit SQ 03/29/17 11/02/18 [Lantus Solostar] Potassium Chloride [Klor-Con 20 meq PO BID 03/29/17 11/02/18 Sprinkle] metFORMIN HCL ER [Glucophage Xr] 500 mg PO BID 03/29/17 11/02/18 Allopurinol [Zyloprim] 300 mg PO DAILY 10/21/17 11/02/18 Colchicine [Colcrys] 0.6 mg PO DAILY 10/21/17 11/02/18 Acetaminophen Tab [Tylenol Tab] 325 mg PO Q4H PRN 11/02/18 11/02/18 Atorvastatin [Lipitor] 20 mg PO HS 11/02/18 11/02/18 Escitalopram [Lexapro] 20 mg PO HS 11/02/18 11/02/18 Previous Rx's Medication Instructions Recorded Hydrochlorothiazide [Hydrodiuril] 25 mg PO DAILY #30 tab 10/25/17 cloNIDine HCL [Catapres] 0.2 mg PO BID #60 tab 10/25/17 Allergies Allergy/AdvReac Type Severity Reaction Status Date / Time sulfamethoxazole Allergy Itching Verified 11/02/18 12:14 [From Bactrim] trimethoprim [From Bactrim] Allergy Itching Verified 11/02/18 12:14 Review of Systems ROS Other: All systems not noted in ROS Statement are negative. <Sloan Kapadia - Last Filed: 11/02/18 12:39> ROS Other: All systems not noted in ROS Statement are negative. <Joanie Merchant - Last Filed: 11/02/18 14:27> ROS Statement: Those systems with pertinent positive or pertinent negative responses have been documented in the HPI. Past Medical History Past Medical History: CVA/TIA, Diabetes Mellitus, Hyperlipidemia, Hypertension Additional Past Medical History / Comment(s): gout, past uterine fibroids(sx),in past tx for high cholesterol but could'nt tolerate the meds., chronic gout, carpal tunnel History of Any Multi-Drug Resistant Organisms: None Reported Past Surgical History: Hysterectomy Additional Past Surgical History / Comment(s): neck surg Past Anesthesia/Blood Transfusion Reactions: No Reported Reaction Past Psychological History: No Psychological Hx Reported Smoking Status: Current every day smoker Past Alcohol Use History: None Reported Past Drug Use History: None Reported - Past Family History Mother Additional Family Medical History / Comment(s): at age 47 from heart defect Father Family Medical History: CVA/TIA, Hyperlipidemia, Hypertension Additional Family Medical History / Comment(s): 2 strokes affected brain stem <Joanie Merchant - Last Filed: 11/02/18 14:27> General Exam Limitations: no limitations <Joanie Merchant - Last Filed: 11/02/18 14:27> - General Exam Comments Initial Comments: General: The patient is awake and alert, in no distress, and does not appear acutely ill. Eye: Pupils are equal, round and reactive to light, extra-ocular movements are intact. No nystagmus. There is normal conjunctiva bilaterally. No signs of icterus. Ears, nose, mouth and throat: There are moist mucous membranes and no oral lesions. Neck: The neck is supple, there is no tenderness or JVD. Cardiovascular: There is a regular rate and rhythm. No murmur, rub or gallop is appreciated. Respiratory: Lungs are clear to auscultation, respirations are non-labored, breath sounds are equal. No wheezes, stridor, rales, or rhonchi. Musculoskeletal: Normal ROM, no tenderness. Strength 5/5. Sensation intact. +2 femoral pulses, +1 DP pulses, weak/negligible DP pulses b/l. Feet are warm, 5 second capillary refill b/l. Neurological: A&O x 3. CN II-XII intact, There are no obvious motor or sensory deficits. Coordination appears grossly intact. Speech is normal. Skin: Skin is warm and dry and no rashes.1cm makah to the posterior left heel. There is a large necrotic area of the left great toe MTP plantar surface 3x3cm. Odorous. Pallor of great toe with a necrotic [id number] lesion. No noted lesion of the right LE. Howeever similar pulse exam. Noted bruises on UE b/l. Psychiatric: Cooperative, appropriate mood & affect, normal judgment. (Joanie Merchant) Course <Sloan Kapadia - Last Filed: 11/02/18 12:39> Vital Signs 11/02/18 11/02/18 11/02/18 10:51 12:43 13:30 Temperature 98.3 F Pulse Rate 62 68 67 Respiratory 18 18 18 Rate Blood Pressure 100/61 88/66 108/55 O2 Sat by Pulse 99 98 99 Oximetry 11/02/18 14:00 Temperature 98.0 F Pulse Rate 67 Respiratory 18 Rate Blood Pressure 130/86 O2 Sat by Pulse 99 Oximetry - Reevaluation(s) Reevaluation #1: 11/02/18 12:39 PA supervision: I proceeded [id number] evaluation the patient she does present with complaints of possible infection to her left great toe she is a diabetic she has peripheral vascular disease she states she had a blister that broke and last several days she's been having redness to the area she did have some dr claudio. The clinical exam is consistent with necrosis and gangrene to the first MTP on the left foot along the dorsal aspect the left great toe. The case is discussed with Dr. Estrada covering for Dr. Armijo. Consultation by Dr. Brown and Dr. Hunt will be performed (Sloan Kapadia) Medical Decision Making - Lab Data Result diagrams: 11/02/18 12:15 11/02/18 12:15 <Sloan Kapadia - Last Filed: 11/02/18 12:39> - Lab Data Result diagrams: 11/02/18 12:15 11/02/18 12:15 <Joanie Merchant - Last Filed: 11/02/18 14:27> - Medical Decision Making 88-year-old female presenting for a lesion of left foot. There is obvious dry gangrene of the left lower extremity. This is due to chronic diabetes with a mixture of peripheral artery disease. This is chronic. Do not feel this is acute thrombosis. MO 1 bilaterally however both dorsalis pedis pulses are diminished. Patient has no pain. She states she is diabetic neuropathy. Patient has significant leukocytosis. Lactic acid within normal limits. Patient is afebrile no signs of acute sepsis. Patient will be started on Zosyn and vancomycin. Blood cultures are pending. X-ray revealed no findings consistent with osteomyelitis. At this time will admit patient for infectious disease and vascular consultation. Dr. Kapadia attending provider did personally patient is agreeable care plan is well as admission at this time he spoke with Dr. Armijo who accepted the patient's admission. Patient was transferred to floor in stable condition. (Joanie Merchant) - Lab Data Lab Results 11/02/18 11/02/18 11/02/18 Range/Units 12:15 12:15 12:15 WBC 18.0 H (3.8-10.6) k/uL RBC 3.72 L (3.80-5.40) m/uL Hgb 11.9 (11.4-16.0) gm/dL Hct 35.7 (34.0-46.0) % MCV 96.0 (80.0-100.0) fL MCH 32.1 (25.0-35.0) pg MCHC 33.4 (31.0-37.0) g/dL RDW 14.1 (11.5-15.5) % Plt Count 283 (150-450) k/uL Neutrophils % 81 % Lymphocytes % 12 % Monocytes % 5 % Eosinophils % 1 % Basophils % 0 % Neutrophils # 14.6 H (1.3-7.7) k/uL Lymphocytes # 2.2 (1.0-4.8) k/uL Monocytes # 1.0 (0-1.0) k/uL Eosinophils # 0.1 (0-0.7) k/uL Basophils # 0.1 (0-0.2) k/uL PT (9.0-12.0) sec INR (<1.2) APTT (22.0-30.0) sec Sodium 137 (137-145) mmol/L Potassium 3.1 L (3.5-5.1) mmol/L Chloride 101 (98-107) mmol/L Carbon Dioxide 25 (22-30) mmol/L Anion Gap 11 mmol/L BUN 28 H (7-17) mg/dL Creatinine 1.08 H (0.52-1.04) mg/dL Est GFR (CKD-EPI)AfAm 66 (>60 ml/min/1.73 sqM) Est GFR (CKD-EPI)NonAf 57 (>60 ml/min/1.73 sqM) Glucose 210 H (74-99) mg/dL Plasma Lactic Acid Erwin 2.0 (0.7-2.0) mmol/L Calcium 9.0 (8.4-10.2) mg/dL Total Bilirubin 0.9 (0.2-1.3) mg/dL AST 17 (14-36) U/L ALT 29 (9-52) U/L Alkaline Phosphatase 129 H (38-126) U/L Total Protein 6.0 L (6.3-8.2) g/dL Albumin 3.5 (3.5-5.0) g/dL 11/02/18 Range/Units 12:15 WBC (3.8-10.6) k/uL RBC (3.80-5.40) m/uL Hgb (11.4-16.0) gm/dL Hct (34.0-46.0) % MCV (80.0-100.0) fL MCH (25.0-35.0) pg MCHC (31.0-37.0) g/dL RDW (11.5-15.5) % Plt Count (150-450) k/uL Neutrophils % % Lymphocytes % % Monocytes % % Eosinophils % % Basophils % % Neutrophils # (1.3-7.7) k/uL Lymphocytes # (1.0-4.8) k/uL Monocytes # (0-1.0) k/uL Eosinophils # (0-0.7) k/uL Basophils # (0-0.2) k/uL PT 10.5 (9.0-12.0) sec INR 1.0 (<1.2) APTT 23.7 (22.0-30.0) sec Sodium (137-145) mmol/L Potassium (3.5-5.1) mmol/L Chloride (98-107) mmol/L Carbon Dioxide (22-30) mmol/L Anion Gap mmol/L BUN (7-17) mg/dL Creatinine (0.52-1.04) mg/dL Est GFR (CKD-EPI)AfAm (>60 ml/min/1.73 sqM) Est GFR (CKD-EPI)NonAf (>60 ml/min/1.73 sqM) Glucose (74-99) mg/dL Plasma Lactic Acid Erwin (0.7-2.0) mmol/L Calcium (8.4-10.2) mg/dL Total Bilirubin (0.2-1.3) mg/dL AST (14-36) U/L ALT (9-52) U/L Alkaline Phosphatase (38-126) U/L Total Protein (6.3-8.2) g/dL Albumin (3.5-5.0) g/dL Disposition <Sloan Kapadia - Last Filed: 11/02/18 12:39> Is patient prescribed a controlled substance at d/c from ED?: No Time of Disposition: 13:30 Decision to Admit Reason: Admit from EC Decision Date: 11/02/18 Decision Time: 13:30 <Joanie Merchant - Last Filed: 11/02/18 14:27> Clinical Impression: Gangrene, Peripheral artery disease, Leukocytosis Disposition: ADMITTED IP TO THIS [facility] Condition: Serious
[2018-11-02] MEDS ORDERED: PIPERACILLIN-TAZOBACTAM 3.375 GM in SODIUM CHLORIDE 0.9% 100 ML IVPB STA (11:44)
[2018-11-02] MEDS ORDERED: VANCOMYCIN IV PER PHARMACY 1 EACH MISC MISCELLANE PRN (11:44)
[2018-11-02] MEDS ORDERED: VANCOMYCIN 1,250 MG in SODIUM CHLORIDE 0.9% 250 ML IVPB STA (11:50)
[2018-11-02 12:32] LABS: Basophils # (A) 0.1 k/uL (0-0.2); Basophils % (A) 0 %; Eosinophils # (A) 0.1 k/uL (0-0.7); Eosinophils % (A) 1 %; HCT 35.7 % (34.0-46.0); HGB 11.9 gm/dL (11.4-16.0); Lymphocytes # (A) 2.2 k/uL (1.0-4.8); Lymphocytes % (A) 12 %; MCH 32.1 pg (25.0-35.0); MCHC 33.4 g/dL (31.0-37.0); Mean Platelet Volume 8.5; Monocytes % (A) 5 %; Neutrophils # (A) 14.6 k/uL (1.3-7.7); Neutrophils % (A) 81 %; Platelet Count 283 k/uL (150-450); RBC 3.72 m/uL (3.80-5.40); RDW 14.1 % (11.5-15.5)
[2018-11-02] MEDS: SODIUM CHLORIDE 0.9% 500 ML 500 ML IV SCH (12:35)
[2018-11-02 12:38] LABS: Albumin 3.5 g/dL (3.5-5.0); Potassium 3.1 mmol/L (3.5-5.1); Total Bilirubin 0.9 mg/dL (0.2-1.3)
[2018-11-02 12:49] LABS: Partial Thromboplastin Time 23.7 sec (22.0-30.0); Prothrombin Time 10.5 sec (9.0-12.0)
[2018-11-02] MEDS ORDERED: SODIUM CHLORIDE 0.9% 1,000 ML IV ONE (12:55)
[2018-11-02] MEDS ORDERED: SODIUM CHLORIDE 0.9% 500 ML 500 ML IV ONE (12:55)
[2018-11-02] MEDS ORDERED: NALOXONE 0.4 MG/ML 1 ML VIAL IV PRN (12:55)
[2018-11-02] MEDS ORDERED: MORPHINE SULFATE 4 MG/ML SYRINGE IV PRN (12:55)
[2018-11-02] MEDS ORDERED: POTASSIUM CHLORIDE ER 20 MEQ TAB.ER PO STA (12:57)
--- NOTE | 2018-11-02 13:24 | XR ---
EXAMINATION TYPE: XR foot complete LT DATE OF EXAM: 11/02/2018 CLINICAL HISTORY: Diabetic foot ulcer in left foot pain TECHNIQUE: Frontal, lateral, and oblique images of the left foot are obtained. COMPARISON: None FINDINGS: There is no acute fracture/dislocation evident in the left foot. There is diffuse atherosc lerosis and osseous demineralization seen. Flexion deformity of the distal interphalangeal joints and first metacarpal phalangeal joint slightly limiting evaluation. Protuberant osteophytes are seen of the dorsal hindfoot midfoot from underlying arthropathy. Pes planus deformity is seen. Small plantar heel spur is present. No suspicious osseous erosion or periosteal reaction. Soft tissue swelling is s een lateral to the first metacarpal phalangeal joint and of the plantar surface of the foot. IMPRESSION: Small vessel atherosclerosis, diffuse osseous demineralization, arthropathy, and multifoc al soft tissue swelling without radiographic evidence of osteomyelitis at this time.
[2018-11-02] MEDS: SODIUM CHLORIDE 0.9% 1,000 ML IV SCH (15:01)
[2018-11-02] MEDS ORDERED: ALPRAZolam 0.25 MG TAB PO PRN (15:21)
[2018-11-02] MEDS ORDERED: TEMAZEPAM 15 MG CAP PO PRN (15:21)
[2018-11-02] MEDS: GABAPENTIN 100 MG CAP PO SCH ×2 (15:31→21:45)
[2018-11-02] MEDS: HYDROcodone/APAP 5-325MG 1 EACH TAB PO PRN ×2 (15:32→23:24)
[2018-11-02 16:20] LABS: Appearance,Urine Clear (Clear); Bilirubin,Urine Negative (Negative); Blood,Urine Negative (Negative); Color,Urine Yellow; Glucose,Urine (UA) Negative (Negative); Ketones,Urine Negative (Negative); Leukocyte Esterase,Urine Negative (Negative); Nitrite,Urine Negative (Negative); PH, Urine 6.5 (5.0-8.0); Protein,Urine Trace (Negative); Specific Gravity,Urine 1.012 (1.001-1.035); Urobilinogen,Urine <2.0 mg/dL (<2.0)
[2018-11-02] MEDS: INSULIN ASPART (NovoLOG) 100 UNIT/ML VIAL SQ SCH ×2 (17:09→21:40)
[2018-11-02 17:15] LABS: Glucose,Whole Blood 113 mg/dL (75-99)
--- NOTE | 2018-11-02 17:35 | HP ---
HISTORY AND PHYSICAL I am covering for Dr. Armijo. DATE OF SERVICE: 11/02/2018 CHIEF COMPLAINTS: Pain and swelling, gangrene of the left foot. 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 Armijo in the outpatient setting, previously had an injury of the tendo calcaneus on the left side, and because of the shoes the patient was evaluated by Dr. Hunt, who apparently found 80% stenosis of the right leg. The patient had a blister about 2 weeks ago on the foot which increased in intensity, and currently the patient has severe pain, foul-smelling blackish-colored lesion on the sole of the foot extending to the dorsum. The patient came to [facility] and was admitted for further evaluation and treatment. Gangrene was suspected. There is no history of any fever, rigor or chills. No history of headache, loss of consciousness. White count is elevated. The patient also is receiving high-dose IV steroids followed by tapering dose of steroids for bilateral optic neuritis from Dr. Stapleton's office. PAST MEDICAL HISTORY: 1. Diabetes mellitus. 2. CVA, TIA. 3. Hypertension. 4. Hyperlipidemia. 5. Gout. HOME MEDICATIONS: 1. Lantus 30 units subcutaneously at bedtime. 2. Lipitor 20 mg at bedtime. 3. Lexapro 20 mg at bedtime. 4. Tylenol 325 mg q.4 p.r.n. 5. Glucophage 500 mg p.o. b.i.d. 6. Catapres 0.2 b.i.d. 7. Klor-Con 20 mEq p.o. b.i.d. 8. HydroDIURIL 25 mg p.o. daily. 9. Neurontin 200 mg p.o. t.i.d. 10.Vasotec 20 mg p.o. b.i.d. 11.Colcrys 0.6 p.o. daily. 12.Tenormin 50 mg p.o. b.i.d. 13.Zyloprim 300 mg daily. ALLERGIES: BACTRIM. FAMILY HISTORY: History of CVA, TIA, hypertension, hyperlipidemia. SOCIAL HISTORY: History of smoking, continued ongoing. No history of alcohol intake. REVIEW OF SYSTEMS: ENT: No diminished hearing. No diminished vision. CARDIOVASCULAR SYSTEM: No angina, palpitations. RESPIRATORY SYSTEM: As mentioned earlier. GI: No nausea, vomiting. : No dysuria or retention. NERVOUS SYSTEM: As mentioned earlier. ALLERGY/IMMUNOLOGY: No asthma, hayfever. MUSCULOSKELETAL: As mentioned earlier. HEMATOLOGY/ONCOLOGY: No history of anemia. ENDOCRINE: Diabetes mellitus. CONSTITUTIONAL: As mentioned earlier. DERMATOLOGY: Negative. RHEUMATOLOGY: Negative. PSYCHIATRY: As mentioned earlier. PHYSICAL EXAMINATION: Patient alert and oriented x3. Pulse 67, blood pressure 130/86, respiration 18, temperature 98 degrees, pulse ox 99% on room air. HEENT: Conjunctivae normal. Oral mucosa moist. NECK: No jugular venous distention. No carotid bruit. No lymph node enlargement. CARDIOVASCULAR SYSTEM: S1, S2 muffled. No S3. No S4. RESPIRATORY SYSTEM: Breath sounds diminished at the bases. No rhonchi. No crackles. ABDOMEN: Soft, non-tender. No mass palpable. No hepatosplenomegaly. No ascites. LEGS: Pulses are diminished. Otherwise, left leg has significant foul-smelling gangrene, especially involving the plantar aspect, coming to the dorsum of the foot; also around the first metatarsophalangeal head area. The patient also has grade 1-2 ulcers in the left tendo Achillis. NERVOUS SYSTEM: Higher functions as mentioned earlier. Moves all 4 limbs. Sensory impairment in both feet. SKIN: As mentioned earlier. JOINTS: No active deforming arthropathy, except the foot. LYMPHATICS: No lymph node palpable in neck, axillae or groin. LABS: WBC 18, hemoglobin 11.9, sodium 137, potassium 3.1, creatinine 1.08. ASSESSMENT: 1. Acute gangrene of the left foot and diabetic foot with possible sepsis, present on admission, with severe pain. 2. Peripheral vascular disease, possibly. 3. Increased white count. 4. Hypokalemia. 5. Increased creatinine with mild acute renal failure possibly prerenal. 6. Diabetes mellitus, type 2. 7. History of optic neuritis. 8. History of cerebrovascular accident, transient ischemic attack. 9. Hypertension. 10.Hyperlipidemia. 11.History of gout. 12.History of hypercholesteremia. 13.History of nicotine dependence, continued ongoing. 14.FULL CODE. RECOMMENDATIONS AND DISCUSSION: In this 58-year-old woman who presented with multiple complex medical issues, at this time I recommend to continue the current medications, continue with symptomatic treatment. Otherwise at this time I recommend broad-spectrum IV antibiotics, including Zosyn and vancomycin. Obtain cultures. Infectious disease and vascular surgery consultations. Monitor blood sugars closely. Resume the home medications. Pain medications. Symptomatic treatment. DVT prophylaxis. Overall prognosis is guarded because of multiple complex medical issues. Discussed with the patient and family, who understand. Further recommendations to follow. The patient will definitely require surgical intervention as well. Cultures are also obtained, as mentioned earlier. A copy of this dictation is being forwarded to Dr. Armijo, who is the primary physician. ANGEL / NICOLASN: [id number] /
[2018-11-02] MEDS: PIPERACILLIN-TAZOBACTAM 3.375 GM in SODIUM CHLORIDE 0.9% 100 ML IVPB SCH (20:36)
[2018-11-02] MEDS: ESCITALOPRAM 20 MG TAB PO SCH (20:37)
[2018-11-02] MEDS: ATENOLOL 25 MG TAB PO SCH (20:37)
[2018-11-02] MEDS: ATORVASTATIN 20 MG TAB PO SCH (20:38)
[2018-11-02] MEDS: cloNIDine HCL 0.2 MG TAB PO SCH (20:38)
[2018-11-02] MEDS: HEPARIN SODIUM,PORCINE 5,000 UNIT/ML 1 ML VIAL SQ SCH (20:38)
[2018-11-02] MEDS: POTASSIUM CHLORIDE ER 20 MEQ TAB.ER PO SCH (20:38)
[2018-11-02] MEDS: ACETAMINOPHEN TAB 325 MG TAB PO PRN (20:39)
[2018-11-02 20:40] LABS: Glucose,Whole Blood 126 mg/dL (75-99)
[2018-11-02] MEDS: metFORMIN 500 MG TAB PO SCH (21:40)
[2018-11-02] MEDS: INSULIN DETEMIR (LEVEMIR) 100 UNIT/ML SYR SQ SCH (21:41)
[2018-11-03] MEDS: SODIUM CHLORIDE 0.9% 1,000 ML IV SCH ×2 (00:23→09:36)
[2018-11-03] MEDS: PIPERACILLIN-TAZOBACTAM 3.375 GM in SODIUM CHLORIDE 0.9% 100 ML IVPB SCH ×3 (05:07→20:48)
[2018-11-03] MEDS ORDERED: VANCOMYCIN 1,250 MG in SODIUM CHLORIDE 0.9% 250 ML IVPB SCH (06:00)
[2018-11-03 07:08] LABS: Glucose,Whole Blood 70 mg/dL (75-99)
[2018-11-03] MEDS: INSULIN ASPART (NovoLOG) 100 UNIT/ML VIAL SQ SCH ×4 (07:08→20:46)
[2018-11-03] MEDS: metFORMIN 500 MG TAB PO SCH ×2 (09:32→20:43)
[2018-11-03] MEDS: HEPARIN SODIUM,PORCINE 5,000 UNIT/ML 1 ML VIAL SQ SCH ×2 (09:34→20:44)
[2018-11-03] MEDS: cloNIDine HCL 0.2 MG TAB PO SCH ×2 (09:35→20:44)
[2018-11-03] MEDS: ALLOPURINOL 300 MG TAB PO SCH (09:35)
[2018-11-03] MEDS: GABAPENTIN 100 MG CAP PO SCH ×3 (09:35→20:44)
[2018-11-03] MEDS: POTASSIUM CHLORIDE ER 20 MEQ TAB.ER PO SCH ×2 (09:35→20:45)
[2018-11-03] MEDS: PANTOPRAZOLE 40 MG TABLET PO SCH (09:35)
[2018-11-03] MEDS: ATENOLOL 25 MG TAB PO SCH ×2 (09:35→20:44)
[2018-11-03] MEDS: COLCHICINE 0.6 MG EACH PO SCH (09:36)
[2018-11-03] MEDS: ACETAMINOPHEN TAB 325 MG TAB PO PRN ×3 (09:43→22:13)
[2018-11-03 09:54] LABS: Basophils % (A) 0 %; Eosinophils # (A) 0.1 k/uL (0-0.7); Eosinophils % (A) 0 %; HCT 32.6 % (34.0-46.0); HGB 10.8 gm/dL (11.4-16.0); Lymphocytes # (A) 1.2 k/uL (1.0-4.8); Lymphocytes % (A) 8 %; MCH 31.7 pg (25.0-35.0); MCHC 33.2 g/dL (31.0-37.0); MCV 95.4 fL (80.0-100.0); Mean Platelet Volume 8.5; Monocytes % (A) 7 %; Neutrophils # (A) 12.6 k/uL (1.3-7.7); Neutrophils % (A) 84 %; Platelet Count 224 k/uL (150-450); RBC 3.42 m/uL (3.80-5.40); RDW 14.3 % (11.5-15.5); WBC 14.9 k/uL (3.8-10.6)
[2018-11-03 10:14] LABS: African American GFR (CKD) >90 (>60 ml/min/1.73 sqM); Anion Gap 10 mmol/L; Blood Urea Nitrogen 16 mg/dL (7-17); Calcium 8.8 mg/dL (8.4-10.2); Carbon Dioxide 22 mmol/L (22-30); Chloride 106 mmol/L (98-107); Glucose 171 mg/dL (74-99); Sodium 138 mmol/L (137-145)
[2018-11-03] MEDS: POTASSIUM CHLORIDE 10 MEQ in WATER FOR INJECTION 1 100ML.BAG IVPB SCH ×4 (10:50→14:13)
[2018-11-03 12:01] LABS: Glucose,Whole Blood 130 mg/dL (75-99)
--- NOTE | 2018-11-03 16:49 | P.PN ---
Subjective Progress Note Date: 11/03/18 58-year-old female patient with history of diabetes mellitus type 2, hypertension, hyperlipidemia and CVA/TIA, admitted to the hospital with acute gangrene of left foot and diabetic foot with possible sepsis; patient is admitted to the hospital for IV antibiotic treatment in form of Zosyn and vancomycin and further evaluation and recommendations by ID service 11/03/2018 Patient is seen and evaluated in the room with family members at bedside; concern about swelling in ankles which deteriorates pretty rapidly if she is taken off of hydrochlorothiazide; patient is requesting restart of therapy Vital signs are significant for temperature of 100.2, pulse 54, respirations 16 and blood pressure 117/71 Labs are significant for a white blood count of 14.9, hemoglobin 10.8; chemical profile with a sodium of 138, potassium 3.0 and blood glucoses ranging between 130 to 171 Patient remains on IV antibiotics in form of Zosyn and vancomycin; ID recommendations are pending Objective - Vital Signs Vital signs: Vital Signs Temp 99.0 F 11/03/18 06:33 Pulse 62 11/03/18 06:33 Resp 17 11/03/18 06:33 BP 137/62 11/03/18 06:33 Pulse Ox 98 11/03/18 06:33 Intake & Output 11/02/18 11/03/18 11/03/18 18:59 06:59 18:59 Intake Total 240 Balance 240 Weight 71.668 kg Intake: Oral 240 Other: Voiding Method Bedside Commode Bedside Commode # Voids 1 2 - Exam General: The patient is awake and alert, in no distress, and does not appear acutely ill. Eye: Pupils are equal, round and reactive to light, extra-ocular movements are intact. No nystagmus. There is normal conjunctiva bilaterally. No signs of icterus. Ears, nose, mouth and throat: There are moist mucous membranes and no oral lesions. Neck: The neck is supple, there is no tenderness or JVD. Cardiovascular: There is a regular rate and rhythm. No murmur, rub or gallop is appreciated. Respiratory: Lungs are clear to auscultation, respirations are non-labored, breath sounds are equal. No wheezes, stridor, rales, or rhonchi. Musculoskeletal: Normal ROM, no tenderness. Strength 5/5. Sensation intact. +2 femoral pulses, +1 DP pulses, weak/negligible DP pulses b/l. Feet are warm, 5 second capillary refill b/l. Neurological: A&O x 3. CN II-XII intact, There are no obvious motor or sensory deficits. Coordination appears grossly intact. Speech is normal. Skin: Skin is warm and dry and no rashes.1cm [place] to the posterior left heel. There is a large necrotic area of the left great toe MTP plantar surface 3x3cm. Odorous. Pallor of great toe with a necrotic [id number] lesion. No noted lesion of the right LE. Howeever similar pulse exam. Noted bruises on UE b/l. - Labs CBC & Chem 7: 11/03/18 08:32 11/03/18 08:32 Labs: Abnormal Lab Results - Last 24 Hours (Table) 11/02/18 11/02/18 11/02/18 Range/Units 12:15 12:15 16:00 WBC 18.0 H (3.8-10.6) k/uL RBC 3.72 L (3.80-5.40) m/uL Hgb (11.4-16.0) gm/dL Hct (34.0-46.0) % Neutrophils # 14.6 H (1.3-7.7) k/uL Potassium 3.1 L (3.5-5.1) mmol/L BUN 28 H (7-17) mg/dL Creatinine 1.08 H (0.52-1.04) mg/dL Glucose 210 H (74-99) mg/dL POC Glucose (mg/dL) (75-99) mg/dL Alkaline Phosphatase 129 H (38-126) U/L Total Protein 6.0 L (6.3-8.2) g/dL Urine Protein Trace H (Negative) 11/02/18 11/02/18 11/03/18 Range/Units 16:55 20:39 07:04 WBC (3.8-10.6) k/uL RBC (3.80-5.40) m/uL Hgb (11.4-16.0) gm/dL Hct (34.0-46.0) % Neutrophils # (1.3-7.7) k/uL Potassium (3.5-5.1) mmol/L BUN (7-17) mg/dL Creatinine (0.52-1.04) mg/dL Glucose (74-99) mg/dL POC Glucose (mg/dL) 113 H 126 H 70 L (75-99) mg/dL Alkaline Phosphatase (38-126) U/L Total Protein (6.3-8.2) g/dL Urine Protein (Negative) 11/03/18 11/03/18 Range/Units 08:32 08:32 WBC 14.9 H (3.8-10.6) k/uL RBC 3.42 L (3.80-5.40) m/uL Hgb 10.8 L (11.4-16.0) gm/dL Hct 32.6 L (34.0-46.0) % Neutrophils # 12.6 H (1.3-7.7) k/uL Potassium 3.0 L (3.5-5.1) mmol/L BUN (7-17) mg/dL Creatinine (0.52-1.04) mg/dL Glucose 171 H (74-99) mg/dL POC Glucose (mg/dL) (75-99) mg/dL Alkaline Phosphatase (38-126) U/L Total Protein (6.3-8.2) g/dL Urine Protein (Negative) Microbiology - Last 24 Hours (Table) 11/02/18 15:30 Gram Stain - Preliminary Foot - Left Wound Culture - Preliminary 11/02/18 16:00 Urine Culture - Preliminary Urine,Clean Catch Assessment and Plan Assessment: 1. Acute gangrene of left foot/diabetic foot with sepsis present on admission - Patient is started on IV vancomycin/Zosyn with pharmacy dosing service; monitor blood cultures and wound culture - Vascular surgery and infection diseases consulted and recommendations are pending - Continue with local wound care 2. Hypokalemia; we will supplement with 40 mg of oral potassium 1; monitor electrolytes closely and supplement as needed 3. Mild acute renal injury/dehydration - IV fluids in form of half-normal saline at rate of 75 mL an hour; we will monitor strict MARRY's, daily weights, renal function and electrolytes; avoid hypotension and nephrotoxins 4. Possible peripheral vascular occlusive disease; vascular surgery consulted and recommendations are pending 5. Diabetes mellitus type 2; monitor Accu-Cheks before meals and at bedtime with insulin sliding scale 6. Hypertension; stable on atenolol 25 mg twice a day, clonidine 0.2 mg twice a day; we will start patient on hydrochlorothiazide 25 mg daily 7. Hyperlipidemia; Lipitor 20 mg by mouth daily at bedtime 8. CVA/TIA; continue with aspirin and statin therapy 9. DVT prophylaxis; heparin 5000 units subcu every 12 hours CODE STATUS; full code Time with Patient: Greater than 30
[2018-11-03 16:58] LABS: Glucose,Whole Blood 136 mg/dL (75-99)
[2018-11-03] MEDS: VANCOMYCIN 1,250 MG in SODIUM CHLORIDE 0.9% 250 ML IVPB SCH (17:15)
[2018-11-03 20:30] LABS: Glucose,Whole Blood 241 mg/dL (75-99)
[2018-11-03] MEDS: HYDROcodone/APAP 5-325MG 1 EACH TAB PO PRN (20:45)
[2018-11-03] MEDS: ESCITALOPRAM 20 MG TAB PO SCH (20:45)
[2018-11-03] MEDS: ATORVASTATIN 20 MG TAB PO SCH (20:45)
[2018-11-03] MEDS: INSULIN DETEMIR (LEVEMIR) 100 UNIT/ML SYR SQ SCH (20:46)
[2018-11-04] MEDS: SODIUM CHLORIDE 0.9% 1,000 ML IV SCH ×3 (00:54→16:08)
[2018-11-04] MEDS: PIPERACILLIN-TAZOBACTAM 3.375 GM in SODIUM CHLORIDE 0.9% 100 ML IVPB SCH ×3 (04:03→19:22)
[2018-11-04] MEDS: VANCOMYCIN 1,250 MG in SODIUM CHLORIDE 0.9% 250 ML IVPB SCH ×2 (05:54→17:03)
[2018-11-04] MEDS: INSULIN ASPART (NovoLOG) 100 UNIT/ML VIAL SQ SCH ×4 (07:03→22:06)
[2018-11-04] MEDS: metFORMIN 500 MG TAB PO SCH ×2 (07:04→20:58)
[2018-11-04 07:07] LABS: Glucose,Whole Blood 54 mg/dL (75-99)
[2018-11-04 07:13] LABS: Glucose,Whole Blood 115 mg/dL (75-99)
[2018-11-04] MEDS: GABAPENTIN 100 MG CAP PO SCH ×3 (08:02→20:58)
[2018-11-04] MEDS: HYDROCHLOROTHIAZIDE 25 MG TAB PO SCH (08:02)
[2018-11-04] MEDS: HEPARIN SODIUM,PORCINE 5,000 UNIT/ML 1 ML VIAL SQ SCH ×2 (08:02→21:00)
[2018-11-04] MEDS: ALLOPURINOL 300 MG TAB PO SCH (08:02)
[2018-11-04] MEDS: cloNIDine HCL 0.2 MG TAB PO SCH ×2 (08:02→20:58)
[2018-11-04] MEDS: PANTOPRAZOLE 40 MG TABLET PO SCH (08:02)
[2018-11-04] MEDS: ATENOLOL 25 MG TAB PO SCH ×2 (08:02→20:58)
[2018-11-04] MEDS: COLCHICINE 0.6 MG EACH PO SCH (08:02)
[2018-11-04] MEDS: POTASSIUM CHLORIDE ER 20 MEQ TAB.ER PO SCH ×2 (08:02→20:58)
[2018-11-04] MEDS: ACETAMINOPHEN TAB 325 MG TAB PO PRN ×3 (08:14→20:58)
[2018-11-04 08:48] LABS: Basophils % (A) 0 %; Eosinophils # (A) 0.1 k/uL (0-0.7); Eosinophils % (A) 0 %; HCT 31.4 % (34.0-46.0); Lymphocytes # (A) 1.1 k/uL (1.0-4.8); Lymphocytes % (A) 9 %; MCH 31.5 pg (25.0-35.0); MCHC 31.8 g/dL (31.0-37.0); Monocytes # (A) 0.8 k/uL (0-1.0); Monocytes % (A) 6 %; Neutrophils # (A) 11.1 k/uL (1.3-7.7); Neutrophils % (A) 84 %; Platelet Count 214 k/uL (150-450); RBC 3.17 m/uL (3.80-5.40); RDW 13.5 % (11.5-15.5); WBC 13.3 k/uL (3.8-10.6)
[2018-11-04 09:09] LABS: African American GFR (CKD) >90 (>60 ml/min/1.73 sqM); Anion Gap 11 mmol/L; Blood Urea Nitrogen 11 mg/dL (7-17); Calcium 8.8 mg/dL (8.4-10.2); Carbon Dioxide 21 mmol/L (22-30); Chloride 106 mmol/L (98-107); Glucose 136 mg/dL (74-99); Potassium 3.5 mmol/L (3.5-5.1); Sodium 138 mmol/L (137-145)
[2018-11-04 11:49] LABS: Glucose,Whole Blood 141 mg/dL (75-99)
--- NOTE | 2018-11-04 14:37 | P.PN ---
Subjective Progress Note Date: 11/04/18 Principal diagnosis: 11/04/2018 Patient is seen and evaluated in room at bedside; she awaits evaluation by ID; follows up with Dr. Brown as outpatient Vital signs remained stable with a temperature of 99.8, pulse 61, respirations 16 and blood pressure 145/72 with SpO2 of 97% on room air Lab review shows a white blood count of 13.3, hemoglobin of 10 and platelet count of 214; chemical profile shows sodium of 138, potassium 3.5 and B UN/creatinine of 11 and 0.64; blood sugar remains stable between 136-141 We will continue with current IV antibiotic therapy in form of Zosyn and vancomycin to final wound culture results are available; patient is showing clinical improvement with white blood count improving from 18.7 upon admission down to 13.3 today Further recommendations once patient evaluated by ID 58-year-old female patient with history of diabetes mellitus type 2, hy pertension, hyperlipidemia and CVA/TIA, admitted to the hospital with acute gangrene of left foot and diabetic foot with possible sepsis; patient is admitted to the hospital for IV antibiotic treatment in form of Zosyn and vancomycin and further evaluation and recommendations by ID service 11/03/2018 Patient is seen and evaluated in the room with family members at bedside; concern about swelling in ankles which deteriorates pretty rapidly if she is taken off of hydrochlorothiazide; patient is requesting restart of therapy Vital signs are significant for temperature of 100.2, pulse 54, respirations 16 and blood pressure 117/71 Labs are significant for a white blood count of 14.9, hemoglobin 10.8; chemical profile with a sodium of 138, potassium 3.0 and blood glucoses ranging between 130 to 171 Patient remains on IV antibiotics in form of Zosyn and vancomycin; ID recommendations are pending Objective - Vital Signs Vital signs: Vital Signs Temp 99.8 F H 11/04/18 06:02 Pulse 66 11/04/18 06:02 Resp 16 11/04/18 06:02 BP 131/74 11/04/18 06:02 Pulse Ox 97 11/04/18 06:02 Intake & Output 11/03/18 11/04/18 11/04/18 18:59 06:59 18:59 Intake Total 1550 100 Balance 1550 100 Intake: IV 1550 100 Piperacillin-Tazobactam 3 100 100 .375 gm In Sodium Chloride 0.9% 100 ml @ 25 mls/hr IVPB Q8H [facility] Rx#: [id number] Potassium Chloride 10 meq 400 In Water For Injection 1 100ml.bag @ 100 mls/hr IVPB Q1HR [facility] Rx#: [id number] Sodium Chloride 0.9% 1, 800 000 ml @ 100 mls/hr IV . Q10H [facility] Rx#:[id number] Vancomycin 1,250 mg In 250 Sodium Chloride 0.9% 250 ml @ 125 mls/hr IVPB Q12H [facility] Rx#:[id number] Other: Voiding Method Bedside Commode # Voids 2 1 # Bowel Movements 0 - Exam General: The patient is awake and alert, in no distress, and does not appear acutely ill. Eye: Pupils are equal, round and reactive to light, extra-ocular movements are intact. No nystagmus. There is normal conjunctiva bilaterally. No signs of icterus. Ears, nose, mouth and throat: There are moist mucous membranes and no oral le sions. Neck: The neck is supple, there is no tenderness or JVD. Cardiovascular: There is a regular rate and rhythm. No murmur, rub or gallop is appreciated. Respiratory: Lungs are clear to auscultation, respirations are non-labored, breath sounds are equal. No wheezes, stridor, rales, or rhonchi. Musculoskeletal: Normal ROM, no tenderness. Strength 5/5. Sensation intact. +2 femoral pulses, +1 DP pulses, weak/negligible DP pulses b/l. Feet are warm, 5 second capillary refill b/l. Neurological: A&O x 3. CN II-XII intact, There are no obvious motor or sensory deficits. Coordination appears grossly intact. Speech is normal. Skin: Skin is warm and dry and no rashes.1cm [place] to the posterior left heel. There is a large necrotic area of the left great toe MTP plantar surface 3x3cm. Odorous. Pallor of great toe with a necrotic [id number] lesion. No noted lesion of the right LE. Howeever similar pulse exam. Noted bruises on UE b/l. - Labs CBC & Chem 7: 11/04/18 07:46 11/04/18 07:46 Labs: Abnormal Lab Results - Last 24 Hours (Table) 11/03/18 11/03/1811/03/19 Range/Units 11:59 16:57 20:28 WBC (3.8-10.6) k/uL RBC (3.80-5.40) m/uL Hgb (11.4-16.0) gm/dL Hct (34.0-46.0) % Neutrophils # (1.3-7.7) k/uL Carbon Dioxide (22-30) mmol/L Glucose (74-99) mg/dL POC Glucose (mg/dL) 130 H 136 H 241 H (75-99) mg/dL 11/04/18 11/04/18 11/04/18 Range/Units 06:46 07:10 07:46 WBC 13.3 H (3.8-10.6) k/uL RBC 3.17 L (3.80-5.40) m/uL Hgb 10.0 L (11.4-16.0) gm/dL Hct 31.4 L (34.0-46.0) % Neutrophils # 11.1 H (1.3-7.7) k/uL Carbon Dioxide (22-30) mmol/L Glucose (74-99) mg/dL POC Glucose (mg/dL) 54 L 115 H (75-99) mg/dL 11/04/18 Range/Units 07:46 WBC (3.8-10.6) k/uL RBC (3.80-5.40) m/uL Hgb (11.4-16.0) gm/dL Hct (34.0-46.0) % Neutrophils # (1.3-7.7) k/uL Carbon Dioxide 21 L (22-30) mmol/L Glucose 136 H (74-99) mg/dL POC Glucose (mg/dL) (75-99) mg/dL Microbiology - Last 24 Hours (Table) 11/02/18 16:00 Urine Culture - Final Urine,Clean Catch 11/02/18 15:30 Gram Stain - Preliminary Foot - Left Wound Culture - Preliminary Gram Neg Bacilli 11/02/18 12:15 Blood Culture - Preliminary Blood No Growth after 24 hours Assessment and Plan Assessment: 1. Acute gangrene of left foot/diabetic foot with sepsis present on admission - Patient is started on IV vancomycin/Zosyn with pharmacy dosing service; monitor blood cultures and wound culture - Vascular surgery and infection diseases consulted and recommendations are pending - Continue with local wound care 2. Hypokalemia; we will supplement with 40 mg of oral potassium 1; monitor electrolytes closely and supplement as needed 3. Mild acute renal injury/dehydration - IV fluids in form of half-normal saline at rate of 75 mL an hour; we will monitor strict MARRY's, daily weights, renal function and electrolytes; avoid hypotension and nephrotoxins 4. Possible peripheral vascular occlusive disease; vascular surgery consulted and recommendations are pending 5. Diabetes mellitus type 2; monitor Accu-Cheks before meals and at bedtime with insulin sliding scale 6. Hypertension; stable on atenolol 25 mg twice a day, clonidine 0.2 mg twice a day; we will start patient on hydrochlorothiazide 25 mg daily 7. Hyperlipidemia; Lipitor 20 mg by mouth daily at bedtime 8. CVA/TIA; continue with aspirin and statin therapy 9. DVT prophylaxis; heparin 5000 units subcu every 12 hours CODE STATUS; full code Time with Patient: Greater than 30
--- NOTE | 2018-11-04 15:58 | P.GSHP ---
History of Present Illness 58-year-old white female, patient is known to me from the office patient developed a blister on her left foot plantar aspect few weeks ago and now he has gangrene changes noted on the plantar aspect of the left foot and also there u lcers on her left foot toes and some cellulitis noticed on the dorsal suspect of the foot. Patient was seen by infectious disease patient is IV antibiotic Medical history history of diabetes, hypertension, history of stroke in the past hyperlipidemia Neck examination neck is supple no bruit appreciated Chest is clear first and second sound normal Abdomen soft nontender Vascular examination brachial radial pulses are palpable, femorals are 2+ on the right side left 1+ on the left side patient has a Doppler signal of the left foot for the posttibial there is a gangrene changes of the left foot lateral aspect foot is cyanotic and cold there is some ulcer noted on the rest of the toes Plan is patient BUN/creatinine is within normal limit we will proceed for angiogram tomorrow prognosis is guarded most likely she will need a major amputation discussed in detail to the patient Past Medical History Past Medical History: CVA/TIA, Diabetes Mellitus, Hyperlipidemia, Hypertension Additional Past Medical History / Comment(s): gout, past uterine fibroids(sx),in past tx for high cholesterol but could'nt tolerate the meds., chronic gout, carpal tunnel History of Any Multi-Drug Resistant Organisms: None Reported Past Surgical History: Hysterectomy Additional Past Surgical History / Comment(s): neck surg Past Anesthesia/Blood Transfusion Reactions: No Reported Reaction Past Psychological History: No Psychological Hx Reported Smoking Status: Current every day smoker Past Alcohol Use History: None Reported Past Drug Use History: None Reported - Past Family History Mother Additional Family Medical History / Comment(s): at age 47 from heart defect Father Family Medical History: CVA/TIA, Hyperlipidemia, Hypertension Additional Family Medical History / Comment(s): 2 strokes affected brain stem Medications and Allergies Home Medications Medication Instructions Recorded Confirmed Type Atenolol [Tenormin] 50 mg PO BID 03/29/17 11/02/18 History Enalapril [Vasotec] 20 mg PO BID 03/29/17 11/02/18 History Gabapentin [Neurontin] 200 mg PO TID 03/29/17 11/02/18 History Insulin Glargine,Hum.rec.anlog 30 unit SQ HS 03/29/17 11/02/18 History [Lantus Solostar] Potassium Chloride [Klor-Con 20 meq PO BID 03/29/17 11/02/18 History Sprinkle] metFORMIN HCL ER [Glucophage Xr] 500 mg PO BID 03/29/17 11/02/18 History Allopurinol [Zyloprim] 300 mg PO DAILY 10/21/17 11/02/18 History Colchicine [Colcrys] 0.6 mg PO DAILY 10/21/17 11/02/18 History Hydrochlorothiazide [Hydrodiuril] 25 mg PO DAILY #30 tab 10/25/17 11/02/18 Rx cloNIDine HCL [Catapres] 0.2 mg PO BID #60 tab 10/25/17 11/02/18 Rx Acetaminophen Tab [Tylenol Tab] 325 mg PO Q4H PRN 11/02/18 11/02/18 History Atorvastatin [Lipitor] 20 mg PO HS 11/02/18 11/02/18 History Escitalopram [Lexapro] 20 mg PO HS 11/02/18 11/02/18 History Allergies Allergy/AdvReac Type Severity Reaction Status Date / Time sulfamethoxazole Allergy Itching Verified 11/02/18 12:14 [From Bactrim] trimethoprim [From Bactrim] Allergy Itching Verified 11/02/18 12:14 Surgical - Exam Vital Signs Temp Pulse Resp BP Pulse Ox 98.3 F 62 18 100/61 99 11/02/18 10:51 11/02/18 10:51 11/02/18 10:51 11/02/18 10:51 11/02/18 10:51 Results - Labs 11/04/18 07:46 11/04/18 07:46 Abnormal Lab Results - Last 24 Hours (Table) 11/03/18 11/03/18 11/04/18 Range/Units 16:57 20:28 06:46 WBC (3.8-10.6) k/uL RBC (3.80-5.40) m/uL Hgb (11.4-16.0) gm/dL Hct (34.0-46.0) % Neutrophils # (1.3-7.7) k/uL Carbon Dioxide (22-30) mmol/L Glucose (74-99) mg/dL POC Glucose (mg/dL) 136 H 241 H 54 L (75-99) mg/dL 11/04/18 11/04/18 11/04/18 Range/Units 07:10 07:46 07:46 WBC 13.3 H (3.8-10.6) k/uL RBC 3.17 L (3.80-5.40) m/uL Hgb 10.0 L (11.4-16.0) gm/dL Hct 31.4 L (34.0-46.0) % Neutrophils # 11.1 H (1.3-7.7) k/uL Carbon Dioxide 21 L (22-30) mmol/L Glucose 136 H (74-99) mg/dL POC Glucose (mg/dL) 115 H (75-99) mg/dL 11/04/18 Range/Units 11:41 WBC (3.8-10.6) k/uL RBC (3.80-5.40) m/uL Hgb (11.4-16.0) gm/dL Hct (34.0-46.0) % Neutrophils # (1.3-7.7) k/uL Carbon Dioxide (22-30) mmol/L Glucose (74-99) mg/dL POC Glucose (mg/dL) 141 H (75-99) mg/dL Microbiology - Last 24 Hours (Table) 11/02/18 12:15 Blood Culture - Preliminary Blood No Growth after 48 hours 11/02/18 16:00 Urine Culture - Final Urine,Clean Catch 11/02/18 15:30 Gram Stain - Preliminary Foot - Left Wound Culture - Preliminary Gram Neg Bacilli Diabetes panel 11/04/18 Range/Units 07:46 Sodium 138 (137-145) mmol/L Potassium 3.5 (3.5-5.1) mmol/L Chloride 106 (98-107) mmol/L Carbon Dioxide 21 L (22-30) mmol/L BUN 11 (7-17) mg/dL Creatinine 0.64 (0.52-1.04) mg/dL Glucose 136 H (74-99) mg/dL Calcium 8.8 (8.4-10.2) mg/dL Calcium panel 11/04/18 Range/Units 07:46 Calcium 8.8 (8.4-10.2) mg/dL Pituitary panel 11/04/18 Range/Units 07:46 Sodium 138 (137-145) mmol/L Potassium 3.5 (3.5-5.1) mmol/L Chloride 106 (98-107) mmol/L Carbon Dioxide 21 L (22-30) mmol/L BUN 11 (7-17) mg/dL Creatinine 0.64 (0.52-1.04) mg/dL Glucose 136 H (74-99) mg/dL Calcium 8.8 (8.4-10.2) mg/dL Adrenal panel 11/04/18 Range/Units 07:46 Sodium 138 (137-145) mmol/L Potassium 3.5 (3.5-5.1) mmol/L Chloride 106 (98-107) mmol/L Carbon Dioxide 21 L (22-30) mmol/L BUN 11 (7-17) mg/dL Creatinine 0.64 (0.52-1.04) mg/dL Glucose 136 H (74-99) mg/dL Calcium 8.8 (8.4-10.2) mg/dL
[2018-11-04] MEDS ORDERED: VANCOMYCIN TROUGH DUE 1 EACH MISC MISCELLANE ONE (17:00)
[2018-11-04 17:09] LABS: Glucose,Whole Blood 192 mg/dL (75-99)
[2018-11-04] MEDS: ESCITALOPRAM 20 MG TAB PO SCH (20:58)
[2018-11-04] MEDS: ATORVASTATIN 20 MG TAB PO SCH (20:58)
[2018-11-04 21:07] LABS: Glucose,Whole Blood 246 mg/dL (75-99)
[2018-11-04] MEDS: INSULIN DETEMIR (LEVEMIR) 100 UNIT/ML SYR SQ SCH (22:06)
[2018-11-04] MEDS: IBUPROFEN 800 MG TAB PO SCH (23:25)
[2018-11-05] MEDS: HYDROcodone/APAP 5-325MG 1 EACH TAB PO PRN ×2 (00:11→22:51)
--- NOTE | 2018-11-05 00:40 | P.CONS ---
History of Present Illness - Reason for Consult Consult date: 11/04/18 - Chief Complaint Progressive ulcer of left foot - History of Present Illness 58-year-old woman who presents to Hospital because of progressive ulceration to her right foot. Was being followed in the outpatient setting but despite some local care and some oral antibiotic therapy she's had developed an extensive area of dry gangrenous changes that is a putrid odor. She herself is not feeling very poorly this aware of the significant changes in her blood sugars have started to increase. She then developed a fever and was directed to hospital. She was seen by vascular surgery and plans are for angiography to help determine level of amputation. At this time she is anxious and feels poorly. Her 's and she has significant psychosocial issues. Review of Systems Patient feels poorly with fever HEENT:Denies headache or acute visual change. Denies sinus or mouth discomforts. Denies neck stiffness or pain. Denies significant oral cavity pain. Denies difficulty on swallowing. Lungs: Denies significant shortness of breath, cough, sputum production, or hemoptysis. Cardiovascular: Denies significant shortness of breath, chest pain, chest wall pain, orthopnea, dyspnea on exertion, syncope Gastrointestinal:Denies nausea, vomiting, diarrhea, constipation, hematemesis, melena, hematochezia. No no significant change of bowel habit noticed. Musculoskeletal: He has some swelling to the right leg significant arthritis complaints Skin: Progressive ulceration to the right foot Neuro: Denies headache or visual change. Denies any new onset weakness or difficulty with ambulation. Denies falls or seizures. Psychiatric:Denies anxiety or depression. Endocrine: Chronic fatigue weight has actually gone down Past Medical History Past Medical History: CVA/TIA, Diabetes Mellitus, Hyperlipidemia, Hypertension Additional Past Medical History / Comment(s): gout, past uterine fibroids(sx),in past tx for high cholesterol but could'nt tolerate the meds., chronic gout, carpal tunnel History of Any Multi-Drug Resistant Organisms: None Reported Past Surgical History: Hysterectomy Additional Past Surgical History / Comment(s): neck surg Past Anesthesia/Blood Transfusion Reactions: No Reported Reaction Past Psychological History: No Psychological Hx Reported Additional Psychological History / Comment(s): . Remains a smoker. Very anxious about current situation Smoking Status: Current every day smoker Past Alcohol Use History: None Reported Past Drug Use History: None Reported - Past Family History Mother Additional Family Medical History / Comment(s): at age 47 from heart defect Father Family Medical History: CVA/TIA, Hyperlipidemia, Hypertension Additional Family Medical History / Comment(s): 2 strokes affected brain stem Medications and Allergies Home Medications and Allergies Comment(s): Current Medications Acetaminophen (Tylenol Tab) 325 mg PO Q4H PRN PRN Reason: Mild Pain Last Admin: 11/04/18 20:58 Dose: 325 mg Documented by: Hydrocodone Bitart/Acetaminophen ([place] 5-325) 1 each PO Q6HR PRN PRN Reason: Pain Last Admin: 11/05/18 00:11 Dose: 1 each Documented by: Allopurinol (Zyloprim) 300 mg PO DAILY [facility] Last Admin: 11/04/18 08:02 Dose: 300 mg Documented by: Alprazolam (Xanax) 0.25 mg PO TID PRN PRN Reason: Anxiety Atenolol (Tenormin) 25 mg PO BID [facility] Last Admin: 11/04/18 20:58 Dose: 25 mg Documented by: Atorvastatin Calcium (Lipitor) 20 mg PO [facility] Last Admin: 11/04/18 20:58 Dose: 20 mg Documented by: Clonidine (Catapres) 0.2 mg PO BID [facility] Last Admin: 11/04/18 20:58 Dose: 0.2 mg Documented by: Colchicine (Colcrys) 0.6 mg PO DAILY [facility] Last Admin: 11/04/18 08:02 Dose: 0.6 mg Documented by: Escitalopram Oxalate (Lexapro) 20 mg PO [facility] Last Admin: 11/04/18 20:58 Dose: 20 mg Documented by: Gabapentin (Neurontin) 200 mg PO TID [facility] Last Admin: 11/04/18 20:58 Dose: 200 mg Documented by: Heparin Sodium (Porcine) (Heparin) 5,000 unit SQ Q12HR [facility] Last Admin: 11/04/18 21:00 Dose: 5,000 unit Documented by: Hydrochlorothiazide (Hydrodiuril) 25 mg PO DAILY [facility] Last Admin: 11/04/18 08:02 Dose: 25 mg Documented by: Hydromorphone HCl (Dilaudid) 0.5 mg IVP Q3HR PRN PRN Reason: Severe Pain Sodium Chloride (Saline 0.9%) 1,000 mls @ 100 mls/hr IV .Q10H [facility] Last Admin: 11/04/18 16:08 Dose: 100 mls/hr Documented by: Piperacillin Sod/Tazobactam (Sod 3.375 gm/ Sodium Chloride) 100 mls @ 25 mls/hr IVPB Q8H [facility] Last Admin: 11/04/18 19:22 Dose: 25 mls/hr Documented by: Vancomycin HCl 1,250 mg/ (Sodium Chloride) 250 mls @ 125 mls/hr IVPB Q12H [facility] Last Admin: 11/04/18 17:03 Dose: 125 mls/hr Documented by: Ibuprofen (Motrin) 800 mg PO QID [facility] Last Admin: 11/04/18 23:25 Dose: 800 mg Documented by: Insulin Aspart (Novolog) 0 unit SQ ACHS [facility]; Protocol Last Admin: 11/04/18 22:06 Dose: 4 unit Documented by: Insulin Detemir (Levemir) 30 unit SQ HS [facility] Last Admin: 11/04/18 22:06 Dose: 30 unit Documented by: Metformin HCl (Glucophage) 500 mg PO BID [facility] Last Admin: 11/04/18 20:58 Dose: 500 mg Documented by: Morphine Sulfate (Morphine Sulfate (Inj)) 4 mg IV Q4HR PRN PRN Reason: Severe Pain Naloxone HCl (Narcan) 0.2 mg IV Q2M PRN PRN Reason: Opioid Reversal Pantoprazole Sodium (Protonix) 40 mg PO AC-BRKFST [facility] Last Admin: 11/04/18 08:02 Dose: 40 mg Documented by: Potassium Chloride (K-Dur 20) 20 meq PO BID [facility] Last Admin: 11/04/18 20:58 Dose: 20 meq Documented by: Temazepam (Restoril) 15 mg PO HS PRN PRN Reason: Insomnia Home Medications Medication Instructions Recorded Confirmed Type Atenolol [Tenormin] 50 mg PO BID 03/29/17 11/02/18 History Enalapril [Vasotec] 20 mg PO BID 03/29/17 11/02/18 History Gabapentin [Neurontin] 200 mg PO TID 03/29/17 11/02/18 History Insulin Glargine,Hum.rec.anlog 30 unit SQ HS 03/29/17 11/02/18 History [Lantus Solostar] Potassium Chloride [Klor-Con 20 meq PO BID 03/29/17 11/02/18 History Sprinkle] metFORMIN HCL ER [Glucophage Xr] 500 mg PO BID 03/29/17 11/02/18 History Allopurinol [Zyloprim] 300 mg PO DAILY 10/21/17 11/02/18 History Colchicine [Colcrys] 0.6 mg PO DAILY 10/21/17 11/02/18 History Hydrochlorothiazide [Hydrodiuril] 25 mg PO DAILY #30 tab 10/25/17 11/02/18 Rx cloNIDine HCL [Catapres] 0.2 mg PO BID #60 tab 10/25/17 11/02/18 Rx Acetaminophen Tab [Tylenol Tab] 325 mg PO Q4H PRN 11/02/18 11/02/18 History Atorvastatin [Lipitor] 20 mg PO HS 11/02/18 11/02/18 History Escitalopram [Lexapro] 20 mg PO HS 11/02/18 11/02/18 History Allergies Allergy/AdvReac Type Severity Reaction Status Date / Time sulfamethoxazole Allergy Itching Verified 11/02/18 12:14 [From Bactrim] trimethoprim [From Bactrim] Allergy Itching Verified 11/02/18 12:14 Physical Exam Vitals: Vital Signs Temp Pulse Resp BP BP Pulse Ox 11/04/18 23:59 84 17 11/04/18 23:27 100.3 F H 84 17 97/51 95 11/04/18 21:00 101 F H 69 17 147/73 100 11/04/18 12:18 99.8 F H 61 16 145/72 97 11/04/18 06:02 99.8 F H 66 16 131/74 97 Intake and Output 11/04/18 11/04/18 11/05/18 14:59 22:59 06:59 Intake Total 1730 725 Balance 1730 725 Intake: Intake, IV Titration 1150 125 Amount Piperacillin-Tazobactam 3 100 .375 gm In Sodium Chloride 0.9% 100 ml @ 25 mls/hr IVPB Q8H [facility] Rx#: [id number] Sodium Chloride 0.9% 1, 800 000 ml @ 100 mls/hr IV . Q10H [facility] Rx#:[id number] Vancomycin 1,250 mg In 250 125 Sodium Chloride 0.9% 250 ml @ 125 mls/hr IVPB Q12H [facility] Rx#:[id number] Oral 580 600 Other: Voiding Method Bedside Commode Bedside Commode # Voids 2 1 # Bowel Movements 1 58-year-old woman who looks considerably older than her stated age HEENT: Anicteric conjunctiva are pink and moist nasal mucosa grossly intact without significant lesions, there is no thrush. Poor dental health Neck: The neck is supple without significant lymphadenopathy or thyromegaly. Lungs: Symmetrical air entry with wheezes that are scattered no bronchial sounds Heart: Irregular audible S1-S2 positive S4 no new murmur click or rub Abdomen: Obese, Positive bowel sounds soft and nontender without palpable masses or organomegaly. There was no guarding or rebound. Extremities: The upper extremities have excellent pulses they are symmetric, no significant petechiae or telangiectasia. No splinter hemorrhages were noted. The lower extremities reveals some chronic lower extremity edema over the right foot has the significant plantar ulceration over the first metatarsal head with dry gangrenous change putrid odor some surrounding erythema some minimal ascending erythema but no lymphadenopathy is noted to the right groin and other abnormal lymph nodes are noted Neuro: Awake alert oriented to person place and time. There are no acute new gross focal sensory motor deficits. Results CBC & Chem 7: 11/04/18 07:46 11/04/18 07:46 Labs: Abnormal Lab Results - Last 24 Hours (Table) 11/04/18 11/04/18 11/04/18 Range/Units 06:46 07:10 07:46 WBC 13.3 H (3.8-10.6) k/uL RBC 3.17 L (3.80-5.40) m/uL Hgb 10.0 L (11.4-16.0) gm/dL Hct 31.4 L (34.0-46.0) % Neutrophils # 11.1 H (1.3-7.7) k/uL Carbon Dioxide (22-30) mmol/L Glucose (74-99) mg/dL POC Glucose (mg/dL) 54 L 115 H (75-99) mg/dL 11/04/18 11/04/18 11/04/18 Range/Units 07:46 11:41 16:56 WBC (3.8-10.6) k/uL RBC (3.80-5.40) m/uL Hgb (11.4-16.0) gm/dL Hct (34.0-46.0) % Neutrophils # (1.3-7.7) k/uL Carbon Dioxide 21 L (22-30) mmol/L Glucose 136 H (74-99) mg/dL POC Glucose (mg/dL) 141 H 192 H (75-99) mg/dL 11/04/18 Range/Units 21:06 WBC (3.8-10.6) k/uL RBC (3.80-5.40) m/uL Hgb (11.4-16.0) gm/dL Hct (34.0-46.0) % Neutrophils # (1.3-7.7) k/uL Carbon Dioxide (22-30) mmol/L Glucose (74-99) mg/dL POC Glucose (mg/dL) 246 H (75-99) mg/dL Microbiology - Last 24 Hours (Table) 11/02/18 15:30 Gram Stain - Final Foot - Left Wound Culture - Final Escherichia coli 11/02/18 12:15 Blood Culture - Preliminary Blood No Growth after 48 hours 11/02/18 16:00 Urine Culture - Final Urine,Clean Catch Laboratory Results WBC 13.3 k/uL (3.8-10.6) H 11/04/18 07:46 RBC 3.17 m/uL (3.80-5.40) L 11/04/18 07:46 Hgb 10.0 gm/dL (11.4-16.0) L 11/04/18 07:46 Hct 31.4 % (34.0-46.0) L 11/04/18 07:46 MCV 99.0 fL (80.0-100.0) 11/04/18 07:46 MCH 31.5 pg (25.0-35.0) 11/04/18 07:46 MCHC 31.8 g/dL (31.0-37.0) 11/04/18 07:46 RDW 13.5 % (11.5-15.5) 11/04/18 07:46 Plt Count 214 k/uL (150-450) 11/04/18 07:46 Neutrophils % 84 % 11/04/18 07:46 Lymphocytes % 9 % 11/04/18 07:46 Monocytes % 6 % 11/04/18 07:46 Eosinophils % 0 % 11/04/18 07:46 Basophils % 0 % 11/04/18 07:46 Neutrophils # 11.1 k/uL (1.3-7.7) H 11/04/18 07:46 Lymphocytes # 1.1 k/uL (1.0-4.8) 11/04/18 07:46 Monocytes # 0.8 k/uL (0-1.0) 11/04/18 07:46 Eosinophils # 0.1 k/uL (0-0.7) 11/04/18 07:46 Basophils # 0.0 k/uL (0-0.2) 11/04/18 07:46 PT 10.5 sec (9.0-12.0) 11/02/18 12:15 INR 1.0 (<1.2) 11/02/18 12:15 APTT 23.7 sec (22.0-30.0) 11/02/18 12:15 Sodium 138 mmol/L (137-145) 11/04/18 07:46 Potassium 3.5 mmol/L (3.5-5.1) 11/04/18 07:46 Chloride 106 mmol/L (98-107) 11/04/18 07:46 Carbon Dioxide 21 mmol/L (22-30) L 11/04/18 07:46 Anion Gap 11 mmol/L 11/04/18 07:46 BUN 11 mg/dL (7-17) 11/04/18 07:46 Creatinine 0.64 mg/dL (0.52-1.04) 11/04/18 07:46 Est GFR (CKD-EPI)AfAm >90 (>60 ml/min/1.73 sqM) 11/04/18 07:46 Est GFR (CKD-EPI)NonAf >90 (>60 ml/min/1.73 sqM) 11/04/18 07:46 Glucose 136 mg/dL (74-99) H 11/04/18 07:46 POC Glucose (mg/dL) 246 mg/dL (75-99) H 11/04/18 21:06 POC Glu Subcontracts Manager SHAGGY Donna Silva 11/04/18 21:06 Plasma Lactic Acid [place] 2.0 mmol/L (0.7-2.0) 11/02/18 12:15 Calcium 8.8 mg/dL (8.4-10.2) 11/04/18 07:46 Total Bilirubin 0.9 mg/dL (0.2-1.3) 11/02/18 12:15 AST 17 U/L (14-36) 11/02/18 12:15 ALT 29 U/L (9-52) 11/02/18 12:15 Alkaline Phosphatase 129 U/L (38-126) H 11/02/18 12:15 Total Protein 6.0 g/dL (6.3-8.2) L 11/02/18 12:15 Albumin 3.5 g/dL (3.5-5.0) 11/02/18 12:15 Urine Color Yellow 11/02/18 16:00 Urine Appearance Clear (Clear) 11/02/18 16:00 Urine pH 6.5 (5.0-8.0) 11/02/18 16:00 Ur Specific [place] 1.012 (1.001-1.035) 11/02/18 16:00 Urine Protein Trace (Negative) H 11/02/18 16:00 Urine Glucose (UA) Negative (Negative) 11/02/18 16:00 Urine Ketones Negative (Negative) 11/02/18 16:00 Urine Blood Negative (Negative) 11/02/18 16:00 Urine Nitrite Negative (Negative) 11/02/18 16:00 Urine Bilirubin Negative (Negative) 11/02/18 16:00 Urine Urobilinogen <2.0 mg/dL (<2.0) 11/02/18 16:00 Ur Leukocyte Esterase Negative (Negative) 11/02/18 16:00 Vancomycin Trough 12.2 ug/mL 11/04/18 16:23 Microbiology 11/02/18 15:30 Foot - Left Gram Stain - Final 11/02/18 15:30 Foot - Left Wound Culture - Final Escherichia coli 11/02/18 12:15 Blood Blood Culture - Preliminary No Growth after 48 hours 11/02/18 16:00 Urine,Clean Catch Urine Culture - Final Assessment and Plan (1) Gangrene of right foot Narrative/Plan: 58-year-old woman with a long-standing history of many medical troubles that includes her cardiomyopathy, peripheral vascular disease which is severe in diabetes mellitus type 2 poorly controlled as well as psychosocial difficulties with the of her , presents to Hospital with a dry gangrenous changes to her right foot plantar surface. This is been followed in the outpatient clinic and is now markedly worsen. She's been seen by the vascular surgeon there is plans for angiography which will determine the level of amputation that is needed. She is instructed on the fact that she does have gangrene and this required some extensive debridement she will be having at least toe amputation potentially further depending on the findings of the angiography. Antibiotic therapy to Zosyn and vancomycin for now until we have further data gram-negative bacilli are being found. We will discontinue vancomycin soon. Current Visit: Yes Status: Acute Code(s): I96 - GANGRENE, NOT ELSEWHERE CLASSIFIED SNOMED Code(s): 44026999117521475 (2) Diabetes mellitus type 2, uncontrolled, with complications Current Visit: Yes Status: Acute Code(s): E11.8 - TYPE 2 DIABETES MELLITUS WITH UNSPECIFIED COMPLICATIONS; E11.65 - TYPE 2 DIABETES MELLITUS WITH HYPERGLYCEMIA SNOMED Code(s): 31082838
[2018-11-05] MEDS: SODIUM CHLORIDE 0.9% 1,000 ML IV SCH ×3 (01:04→21:35)
[2018-11-05] MEDS: PIPERACILLIN-TAZOBACTAM 3.375 GM in SODIUM CHLORIDE 0.9% 100 ML IVPB SCH ×3 (03:29→20:31)
[2018-11-05 05:55] LABS: Glucose,Whole Blood 57 mg/dL (75-99)
[2018-11-05 06:13] LABS: Glucose,Whole Blood 91 mg/dL (75-99)
[2018-11-05] MEDS: VANCOMYCIN 1,250 MG in SODIUM CHLORIDE 0.9% 250 ML IVPB SCH ×2 (06:33→17:33)
[2018-11-05 06:40] LABS: Basophils # (A) 0.1 k/uL (0-0.2); Basophils % (A) 0 %; Eosinophils # (A) 0.1 k/uL (0-0.7); Eosinophils % (A) 1 %; HCT 31.9 % (34.0-46.0); HGB 10.2 gm/dL (11.4-16.0); Lymphocytes # (A) 2.9 k/uL (1.0-4.8); Lymphocytes % (A) 24 %; MCH 31.5 pg (25.0-35.0); MCHC 31.8 g/dL (31.0-37.0); Mean Platelet Volume 7.7; Monocytes # (A) 0.6 k/uL (0-1.0); Monocytes % (A) 5 %; Neutrophils # (A) 7.8 k/uL (1.3-7.7); Neutrophils % (A) 67 %; Platelet Count 240 k/uL (150-450); RBC 3.22 m/uL (3.80-5.40); RDW 13.4 % (11.5-15.5); WBC 11.7 k/uL (3.8-10.6)
[2018-11-05] MEDS: PANTOPRAZOLE 40 MG TABLET PO SCH (06:51)
[2018-11-05] MEDS: INSULIN ASPART (NovoLOG) 100 UNIT/ML VIAL SQ SCH ×4 (06:51→21:33)
[2018-11-05 06:57] LABS: African American GFR (CKD) >90 (>60 ml/min/1.73 sqM); Anion Gap 8 mmol/L; Blood Urea Nitrogen 13 mg/dL (7-17); Calcium 8.8 mg/dL (8.4-10.2); Carbon Dioxide 23 mmol/L (22-30); Chloride 110 mmol/L (98-107); Potassium 3.5 mmol/L (3.5-5.1); Sodium 141 mmol/L (137-145)
[2018-11-05 07:08] LABS: Glucose 43 mg/dL (74-99)
[2018-11-05] MEDS: metFORMIN 500 MG TAB PO SCH ×2 (08:39→19:51)
[2018-11-05] MEDS: POTASSIUM CHLORIDE ER 20 MEQ TAB.ER PO SCH ×2 (08:41→19:51)
[2018-11-05] MEDS: ALLOPURINOL 300 MG TAB PO SCH (08:41)
[2018-11-05] MEDS: GABAPENTIN 100 MG CAP PO SCH ×3 (08:41→21:33)
[2018-11-05] MEDS: HYDROCHLOROTHIAZIDE 25 MG TAB PO SCH (08:41)
[2018-11-05] MEDS: IBUPROFEN 800 MG TAB PO SCH ×4 (08:41→22:04)
[2018-11-05] MEDS: cloNIDine HCL 0.2 MG TAB PO SCH (08:41)
[2018-11-05] MEDS: COLCHICINE 0.6 MG EACH PO SCH (08:42)
[2018-11-05] MEDS: HEPARIN SODIUM,PORCINE 5,000 UNIT/ML 1 ML VIAL SQ SCH ×2 (08:43→20:31)
[2018-11-05] MEDS ORDERED: MIDAZOLAM (PF) 2 MG/2 ML VIAL IVP ONE (09:10)
[2018-11-05] MEDS ORDERED: LIDOCAINE 1% INJ 10MG/ML (20 ML MDV) SQ ONE (09:13)
[2018-11-05] MEDS ORDERED: IV FLUID CONTINUATION 900 ML IV ONE (09:19)
[2018-11-05] MEDS ORDERED: fentaNYL (PF) 50 MCG/ML 2 ML AMP IV ONE (09:47)
[2018-11-05] MEDS ORDERED: IOPAMIDOL-250 100ML BTL INTRAARTER ONE (09:54)
[2018-11-05 10:32] LABS: Glucose,Whole Blood 50 mg/dL (75-99)
[2018-11-05] MEDS: ATENOLOL 25 MG TAB PO SCH ×2 (10:38→19:51)
[2018-11-05 10:50] LABS: Glucose,Whole Blood 113 mg/dL (75-99)
[2018-11-05 11:59] LABS: Glucose,Whole Blood 112 mg/dL (75-99)
--- NOTE | 2018-11-05 12:42 | PCN ---
PROCEDURE NOTE PREOP DIAGNOSES: Ischemic left foot with gangrene changes involving the dorsal aspect of the foot and the toes with multiple ulcers. PROCEDURE PERFORMED: Left leg angiogram. DESCRIPTION OF PROCEDURE: This patient was brought to the veterinary laboratory technician. Both groins were prepped and drapes applied in the usual sterile manner. 1% lidocaine was infiltrated in the left groin. Ultrasound-guided micropuncture into the left common femoral artery. Micropuncture guidewire was passed and 4 Maori dilator advanced on the top of the guidewire. With hand injection the left leg angiogram was performed. Left common iliac and external iliac were visualized which was patent but was small in caliber. The left common femoral artery was visualized which was small in caliber but patent. Left profunda was visualized. Left SFA has multiple occlusive disease with severe atherosclerosis disease. The left popliteal was visualized which occludes below the knee with occlusion of the tibioperoneal trunk and proximal intratibial was found to be occluded. It reconstitutes distally, post tibial is not visualized. Peroneal visualized. IMPRESSION: Severe atherosclerosis disease with multiple stenosis involving the left superficial femoral artery. The left popliteal artery is occluded below the knee and tibial peroneal trunk is occluded below the knee. Posterior tibial is occluded. Anterior tibial proximal occluded reconstitutes at the lower leg. Catheter was removed. Pressure held. The patient transferred to the floor in satisfactory condition. MMODL / IJN: [id number] /
--- NOTE | 2018-11-05 14:28 | P.PN ---
Subjective Progress Note Date: 11/05/18 Principal diagnosis: 11/04/2018 Patient is seen and evaluated in room at bedside; she awaits evaluation by ID; follows up with Dr. Brown as outpatient Vital signs remained stable with a temperature of 99.8, pulse 61, respirations 16 and blood pressure 145/72 with SpO2 of 97% on room air Lab review shows a white blood count of 13.3, hemoglobin of 10 and platelet count of 214; chemical profile shows sodium of 138, potassium 3.5 and B UN/creatinine of 11 and 0.64; blood sugar remains stable between 136-141 We will continue with current IV antibiotic therapy in form of Zosyn and vancomycin to final wound culture results are available; patient is showing clinical improvement with white blood count improving from 18.7 upon admission down to 13.3 today Further recommendations once patient evaluated by ID 58-year-old female patient with history of diabetes mellitus type 2, hy pertension, hyperlipidemia and CVA/TIA, admitted to the hospital with acute gangrene of left foot and diabetic foot with possible sepsis; patient is admitted to the hospital for IV antibiotic treatment in form of Zosyn and vancomycin and further evaluation and recommendations by ID service 11/03/2018 Patient is seen and evaluated in the room with family members at bedside; concern about swelling in ankles which deteriorates pretty rapidly if she is taken off of hydrochlorothiazide; patient is requesting restart of therapy Vital signs are significant for temperature of 100.2, pulse 54, respirations 16 and blood pressure 117/71 Labs are significant for a white blood count of 14.9, hemoglobin 10.8; chemical profile with a sodium of 138, potassium 3.0 and blood glucoses ranging between 130 to 171 Patient remains on IV antibiotics in form of Zosyn and vancomycin; ID recommendations are pending 11/04/2018 Patient is seen and evaluated in room at bedside; she awaits evaluation by ID; follows up with Dr. Brown as outpatient Vital signs remained stable with a temperature of 99.8, pulse 61, respirations 16 and blood pressure 145/72 with SpO2 of 97% on room air Lab review shows a white blood count of 13.3, hemoglobin of 10 and platelet co unt of 214; chemical profile shows sodium of 138, potassium 3.5 and B UN/creatinine of 11 and 0.64; blood sugar remains stable between 136-141 We will continue with current IV antibiotic therapy in form of Zosyn and vancomycin to final wound culture results are available; patient is showing clinical improvement with white blood count improving from 18.7 upon admission down to 13.3 today Further recommendations once patient evaluated by ID 11/05/2018 Patient is seen and evaluated in [facility] care where she is transferred after angiogram; patient relates that she has talked to vascular surgery and might need amputation Vital signs remained stable with a temperature of 98.1, pulse ranging between 47 to 50; respirations 18 and blood pressure of 98/56 with SpO2 of 96% on room air Lab review shows a white blood count of 11.7, hemoglobin of 10.2, sodium 141, potassium 3.5 and blood sugars ranging between 50-113 Bradycardia/hypotension; iatrogenic; we will decrease Catapres to 0.1 mg twice a day Patient is status post left leg angiogram showing severe atherosclerotic disease with multiple stenosis involving left superficial femoral artery, left lower pretibial arteries occluded below the knee and tibial peroneal trunk is noted below the knee; posterior tibial is occluded and anterior tibial proximal is occluded Vascular surgery is following and will be making further recommendations Patient remains on IV Zosyn and vancomycin for diabetic foot ulcer/gangrene; IDs following and recommending to continue both antibiotics for now with possible discontinuing vancomycin some Objective - Vital Signs Vital signs: Vital Signs Temp 98 F 11/05/18 08:00 Pulse 50 L 11/05/18 08:00 Resp 18 11/05/18 08:00 BP 121/59 11/05/18 08:00 Pulse Ox 98 11/05/18 08:00 Intake & Output 11/04/18 11/05/18 11/05/18 18:59 06:59 18:59 Intake Total 1730 825 50 Balance 1730 825 50 Weight 72.3 kg Intake: IV 100 50 Piperacillin-Tazobactam 3 100 .375 gm In Sodium Chloride 0.9% 100 ml @ 25 mls/hr IVPB Q8H [facility] Rx#: [id number] Intake, IV Titration 1150 125 Amount Piperacillin-Tazobactam 3 100 .375 gm In Sodium Chloride 0.9% 100 ml @ 25 mls/hr IVPB Q8H [facility] Rx#: [id number] Sodium Chloride 0.9% 1, 800 000 ml @ 100 mls/hr IV . Q10H [facility] Rx#:[id number] Vancomycin 1,250 mg In 250 125 Sodium Chloride 0.9% 250 ml @ 125 mls/hr IVPB Q12H [facility] Rx#:[id number] Oral 580 600 Other: Voiding Method Bedside Commode # Voids 1 1 # Bowel Movements 1 - Exam General: The patient is awake and alert, in no distress, and does not appear acutely ill. Eye: Pupils are equal, round and reactive to light, extra-ocular movements are intact. No nystagmus. There is normal conjunctiva bilaterally. No signs of icterus. Ears, nose, mouth and throat: There are moist mucous membranes and no oral lesions. Neck: The neck is supple, there is no tenderness or JVD. Cardiovascular: There is a regular rate and rhythm. No murmur, rub or gallop is appreciated. Respiratory: Lungs are clear to auscultation, respirations are non-labored, breath sounds are equal. No wheezes, stridor, rales, or rhonchi. Musculoskeletal: Normal ROM, no tenderness. Strength 5/5. Sensation intact. +2 femoral pulses, +1 DP pulses, weak/negligible DP pulses b/l. Feet are warm, 5 second capillary refill b/l. Neurological: A&O x 3. CN II-XII intact, There are no obvious motor or sensory deficits. Coordination appears grossly intact. Speech is normal. Skin: Skin is warm and dry and no rashes.1cm iqugmiut to the posterior left heel. There is a large necrotic area of the left great toe MTP plantar surface 3x3cm. Odorous. Pallor of great toe with a necrotic 2keo5iv lesion. No noted lesion of the right LE. Howeever similar pulse exam. Noted bruises on UE b/l. - Labs CBC & Chem 7: 11/05/18 05:54 11/05/18 05:54 Labs: Abnormal Lab Results - Last 24 Hours (Table) 11/04/18 11/04/18 11/04/18 Range/Units 11:41 16:56 21:06 WBC (3.8-10.6) k/uL RBC (3.80-5.40) m/uL Hgb (11.4-16.0) gm/dL Hct (34.0-46.0) % Neutrophils # (1.3-7.7) k/uL Chloride (98-107) mmol/L Glucose (74-99) mg/dL POC Glucose (mg/dL) 141 H 192 H 246 H (75-99) mg/dL 11/05/18 11/05/18 11/05/18 Range/Units 05:52 05:54 05:54 WBC 11.7 H (3.8-10.6) k/uL RBC 3.22 L (3.80-5.40) m/uL Hgb 10.2 L (11.4-16.0) gm/dL Hct 31.9 L (34.0-46.0) % Neutrophils # 7.8 H (1.3-7.7) k/uL Chloride 110 H (98-107) mmol/L Glucose 43 L* (74-99) mg/dL POC Glucose (mg/dL) 57 L (75-99) mg/dL 11/05/18 11/05/18 Range/Units 10:30 10:48 WBC (3.8-10.6) k/uL RBC (3.80-5.40) m/uL Hgb (11.4-16.0) gm/dL Hct (34.0-46.0) % Neutrophils # (1.3-7.7) k/uL Chloride (98-107) mmol/L Glucose (74-99) mg/dL POC Glucose (mg/dL) 50 L 113 H (75-99) mg/dL Microbiology - Last 24 Hours (Table) 11/02/18 15:30 Gram Stain - Final Foot - Left Wound Culture - Final Escherichia coli 11/02/18 12:15 Blood Culture - Preliminary Blood No Growth after 48 hours Assessment and Plan Assessment: 1. Acute gangrene of left foot/diabetic foot with sepsis present on admission - Patient is started on IV vancomycin/Zosyn with pharmacy dosing service; monitor blood cultures and wound culture - Vascular surgery and infection diseases consulted and recommendations are pending - Continue with local wound care 2. Hypokalemia; we will supplement with 40 mg of oral potassium 1; monitor electrolytes closely and supplement as needed 3. Mild acute renal injury/dehydration - IV fluids in form of half-normal saline at rate of 75 mL an hour; we will monitor strict MARRY's, daily weights, renal function and electrolytes; avoid hypotension and nephrotoxins 4. Possible peripheral vascular occlusive disease; vascular surgery consulted and recommendations are pending 5. Diabetes mellitus type 2; monitor Accu-Cheks before meals and at bedtime with insulin sliding scale 6. Hypertension; stable on atenolol 25 mg twice a day, clonidine 0.2 mg twice a day; we will start patient on hydrochlorothiazide 25 mg daily 7. Hyperlipidemia; Lipitor 20 mg by mouth daily at bedtime 8. CVA/TIA; continue with aspirin and statin therapy 9. DVT prophylaxis; heparin 5000 units subcu every 12 hours CODE STATUS; full code Time with Patient: Greater than 30
[2018-11-05 17:07] LABS: Glucose,Whole Blood 111 mg/dL (75-99)
[2018-11-05] MEDS ORDERED: amLODIPine 2.5 MG TAB PO STA (18:16)
[2018-11-05] MEDS: ATORVASTATIN 20 MG TAB PO SCH (19:51)
[2018-11-05] MEDS: cloNIDine HCL 0.1 MG TAB PO SCH (19:51)
[2018-11-05] MEDS: ESCITALOPRAM 20 MG TAB PO SCH (19:51)
[2018-11-05 21:03] LABS: Glucose,Whole Blood 138 mg/dL (75-99)
[2018-11-05] MEDS: INSULIN DETEMIR (LEVEMIR) 100 UNIT/ML SYR SQ SCH (21:34)
[2018-11-06] MEDS: PIPERACILLIN-TAZOBACTAM 3.375 GM in SODIUM CHLORIDE 0.9% 100 ML IVPB SCH ×3 (03:30→20:06)
[2018-11-06 05:54] LABS: Glucose,Whole Blood 75 mg/dL (75-99)
[2018-11-06] MEDS: INSULIN ASPART (NovoLOG) 100 UNIT/ML VIAL SQ SCH ×4 (05:56→21:20)
[2018-11-06] MEDS: PANTOPRAZOLE 40 MG TABLET PO SCH (06:02)
[2018-11-06] MEDS: SODIUM CHLORIDE 0.9% 1,000 ML IV SCH ×3 (06:03→23:42)
[2018-11-06] MEDS: VANCOMYCIN 1,250 MG in SODIUM CHLORIDE 0.9% 250 ML IVPB SCH ×2 (06:26→17:58)
[2018-11-06 06:37] LABS: Basophils % (A) 0 %; Eosinophils # (A) 0.2 k/uL (0-0.7); Eosinophils % (A) 1 %; HCT 29.2 % (34.0-46.0); HGB 9.3 gm/dL (11.4-16.0); Lymphocytes # (A) 1.2 k/uL (1.0-4.8); Lymphocytes % (A) 10 %; MCHC 31.8 g/dL (31.0-37.0); MCV 97.6 fL (80.0-100.0); Mean Platelet Volume 8.5; Monocytes # (A) 0.8 k/uL (0-1.0); Monocytes % (A) 7 %; Neutrophils # (A) 9.7 k/uL (1.3-7.7); Neutrophils % (A) 81 %; Platelet Count 213 k/uL (150-450); RBC 2.99 m/uL (3.80-5.40); RDW 14.1 % (11.5-15.5); WBC 12.1 k/uL (3.8-10.6)
[2018-11-06 06:56] LABS: African American GFR (CKD) >90 (>60 ml/min/1.73 sqM); Anion Gap 7 mmol/L; Blood Urea Nitrogen 13 mg/dL (7-17); Calcium 8.5 mg/dL (8.4-10.2); Carbon Dioxide 22 mmol/L (22-30); Chloride 109 mmol/L (98-107); Glucose 74 mg/dL (74-99); Potassium 3.5 mmol/L (3.5-5.1); Sodium 138 mmol/L (137-145)
[2018-11-06] MEDS: POTASSIUM CHLORIDE ER 20 MEQ TAB.ER PO SCH ×2 (09:47→20:05)
[2018-11-06] MEDS: GABAPENTIN 100 MG CAP PO SCH ×3 (09:47→20:08)
[2018-11-06] MEDS: HEPARIN SODIUM,PORCINE 5,000 UNIT/ML 1 ML VIAL SQ SCH ×2 (09:47→20:06)
[2018-11-06] MEDS: ALLOPURINOL 300 MG TAB PO SCH (09:47)
[2018-11-06] MEDS: COLCHICINE 0.6 MG EACH PO SCH (09:47)
[2018-11-06] MEDS: metFORMIN 500 MG TAB PO SCH (09:47)
[2018-11-06] MEDS: HYDROCHLOROTHIAZIDE 25 MG TAB PO SCH (09:47)
[2018-11-06] MEDS: ATENOLOL 25 MG TAB PO SCH ×2 (09:47→20:06)
[2018-11-06] MEDS: cloNIDine HCL 0.1 MG TAB PO SCH ×2 (09:47→20:06)
[2018-11-06] MEDS: IBUPROFEN 800 MG TAB PO SCH ×4 (09:48→20:14)
[2018-11-06 12:06] LABS: Glucose,Whole Blood 75 mg/dL (75-99)
[2018-11-06 16:49] LABS: Glucose,Whole Blood 170 mg/dL (75-99)
[2018-11-06] MEDS: METFORMIN 500 MG PO SCH (17:53)
[2018-11-06] MEDS: ESCITALOPRAM 20 MG TAB PO SCH (20:05)
[2018-11-06] MEDS: ATORVASTATIN 20 MG TAB PO SCH (20:06)
[2018-11-06 20:41] LABS: Glucose,Whole Blood 176 mg/dL (75-99)
[2018-11-06] MEDS: INSULIN DETEMIR (LEVEMIR) 100 UNIT/ML SYR SQ SCH (21:20)
[2018-11-06] MEDS: HYDROcodone/APAP 5-325MG 1 EACH TAB PO PRN (22:30)
[2018-11-07] MEDS: PIPERACILLIN-TAZOBACTAM 3.375 GM in SODIUM CHLORIDE 0.9% 100 ML IVPB SCH ×3 (03:07→20:10)
[2018-11-07] MEDS: VANCOMYCIN 1,250 MG in SODIUM CHLORIDE 0.9% 250 ML IVPB SCH ×2 (05:39→17:53)
[2018-11-07 06:16] LABS: Glucose,Whole Blood 78 mg/dL (75-99)
[2018-11-07] MEDS: PANTOPRAZOLE 40 MG TABLET PO SCH (06:17)
[2018-11-07] MEDS: INSULIN ASPART (NovoLOG) 100 UNIT/ML VIAL SQ SCH ×4 (06:17→21:23)
[2018-11-07 07:16] LABS: Basophils % (A) 0 %; Eosinophils # (A) 0.2 k/uL (0-0.7); Eosinophils % (A) 2 %; HCT 27.6 % (34.0-46.0); Lymphocytes # (A) 1.1 k/uL (1.0-4.8); Lymphocytes % (A) 10 %; MCH 31.7 pg (25.0-35.0); MCHC 32.7 g/dL (31.0-37.0); Mean Platelet Volume 8.7; Monocytes # (A) 0.7 k/uL (0-1.0); Monocytes % (A) 6 %; Neutrophils % (A) 81 %; Platelet Count 227 k/uL (150-450); RBC 2.85 m/uL (3.80-5.40); RDW 14.3 % (11.5-15.5); WBC 11.2 k/uL (3.8-10.6)
--- NOTE | 2018-11-07 07:36 | PN ---
PROGRESS NOTE I am covering for Dr. Armijo. DATE OF SERVICE: 11/06/2018. This 57-year-old woman was admitted with significant gangrene of the left foot, diabetic foot, was scheduled to have a below-knee amputation by Dr. Hunt. Infectious Disease also following the patient closely. The cultures are showing E coli which is polysensitive. PAST MEDICAL HISTORY: Reviewed. REVIEW OF SYSTEMS: Cardiovascular system: No angina. RESPIRATORY: As mentioned earlier. GI no nausea or vomiting. no dysuria. NERVOUS SYSTEM: No numbness or weakness. CURRENT MEDICATIONS: Reviewed and include: 1. Tylenol 320 q.4h p.r.n. 2. [place] 5 mg q.6h p.r.n. 3. Zyloprim 300 mg daily. 4. Xanax 0.5 t.i.d. 5. Tenormin 25 mg b.i.d. 6. Lipitor 20 mg q.h.s. 7. Catapres 0.1 p.o. b.i.d. 8. Colcrys 0.6 daily. 9. Lexapro 20 mg q.h.s. 10.Neurontin 200 mg t.i.d. 11.Heparin subcu b.i.d. 12.HydroDIURIL 25 mg daily. 13.Dilaudid 0.5 mg q.3h p.m. 14.Motrin p.r.n. 15.Levemir 30 units subcu q.h.s. 16.Morphine sulfate. 17.Narcan 0.2 q.2h p.r.n. 18.Protonix 40 mg daily. 19.Zosyn IV. PHYSICAL EXAM: Patient is alert, oriented x three. Pulse is 56, blood pressure 140/60, respirations 16, temperature 99 degrees, pulse ox 97% on room air. HEENT: Conjunctivae normal. Oral mucosa moist. Neck is no jugular venous distention. No carotid bruit. No lymph node enlargement. Cardiovascular system: S1, S2. No S3, no S4. RESPIRATORY: Breath sounds diminished in the bases. A few scattered rhonchi and crackles. ABDOMEN: Soft, nontender. LEGS: Left leg significant gangrene present. NERVOUS SYSTEM: No focal deficits. LAB STUDIES: WBC 12.2, hemoglobin 9.3. ASSESSMENT: 1. Acute left foot gangrene, diabetic foot. 2. Hypokalemia. 3. Acute renal failure secondary to dehydration. 4. Peripheral vascular disease. 5. Diabetes mellitus type 2. 6. Hypertension. 7. Hyperlipidemia. 8. History of cerebrovascular accident, transient ischemic attack. 9. Deep vein thrombosis prophylaxis. 10.Anemia, normocytic anemia of chronic disease. 11.Increased WBC. 12.History of gout. 13.History of uterine fibroid. 14.Anxiety. 15.History of continued ongoing nicotine dependence. 16.Optic neuritis. 17.FULL CODE. RECOMMENDATIONS AND DISCUSSION: In this 58-year-old woman who presented with multiple complex medical issues, we will monitor the patient closely. Continue the current medications. Continue broad- spectrum IV antibiotics. I would also recommend DVT prophylaxis and I would also recommend closely follow with Dr. Hunt for possible BKA. Otherwise, we will continue to monitor. Overall prognosis guarded because of multiple complex medical issues. MMODL / IJN: [id number] /
[2018-11-07 07:44] LABS: African American GFR (CKD) >90 (>60 ml/min/1.73 sqM); Anion Gap 9 mmol/L; Blood Urea Nitrogen 12 mg/dL (7-17); Calcium 8.6 mg/dL (8.4-10.2); Carbon Dioxide 22 mmol/L (22-30); Chloride 110 mmol/L (98-107); Glucose 69 mg/dL (74-99); Potassium 3.7 mmol/L (3.5-5.1); Sodium 141 mmol/L (137-145)
[2018-11-07] MEDS: HYDROCHLOROTHIAZIDE 25 MG TAB PO SCH (09:08)
[2018-11-07] MEDS: POTASSIUM CHLORIDE ER 20 MEQ TAB.ER PO SCH ×2 (09:08→20:11)
[2018-11-07] MEDS: ALLOPURINOL 300 MG TAB PO SCH (09:08)
[2018-11-07] MEDS: GABAPENTIN 100 MG CAP PO SCH ×3 (09:08→20:11)
[2018-11-07] MEDS: ATENOLOL 25 MG TAB PO SCH ×2 (09:08→20:10)
[2018-11-07] MEDS: IBUPROFEN 800 MG TAB PO SCH ×4 (09:08→20:10)
[2018-11-07] MEDS: HEPARIN SODIUM,PORCINE 5,000 UNIT/ML 1 ML VIAL SQ SCH ×2 (09:09→20:11)
[2018-11-07] MEDS: METFORMIN 500 MG PO SCH ×2 (09:09→17:53)
[2018-11-07] MEDS: cloNIDine HCL 0.1 MG TAB PO SCH ×2 (09:09→20:11)
[2018-11-07] MEDS: COLCHICINE 0.6 MG EACH PO SCH (09:12)
[2018-11-07 12:20] LABS: Glucose,Whole Blood 141 mg/dL (75-99)
[2018-11-07] MEDS: ACETAMINOPHEN TAB 325 MG TAB PO PRN (15:39)
[2018-11-07] MEDS: SODIUM CHLORIDE 0.9% 1,000 ML IV SCH ×2 (15:41→21:24)
[2018-11-07 16:57] LABS: Glucose,Whole Blood 135 mg/dL (75-99)
--- NOTE | 2018-11-07 18:48 | PN ---
PROGRESS NOTE This patient is a 58-year-old female with a history of gangrene of the left foot involving the big toe, plantar aspect of the foot and dorsal aspect of the foot. Also patient has an ischemic ulcer noted. All the toes and foot are cold and mottled. The patient had an angiogram done. She has severe atherosclerotic disease of the superficial femoral artery. Tibioperoneal trunk is occluded. Also the patient has infrapopliteal occlusive disease. The tibial vessel stops at the ankle. There is no flow noted to the foot and the foot is mottled. No motor function noted. The patient was told, and we had a long discussion about amputation because the foot is not salvageable and no flow is noted. The patient will be going for below-knee amputation. Risk of flap necrosis has been discussed. There is a possibility of above-knee. The patient understands. We will have cardiac clearance and proceed with surgery. MMROSALIAL / IJN: [id number] /
[2018-11-07] MEDS: ESCITALOPRAM 20 MG TAB PO SCH (20:11)
[2018-11-07] MEDS: ATORVASTATIN 20 MG TAB PO SCH (20:11)
[2018-11-07 21:13] LABS: Glucose,Whole Blood 170 mg/dL (75-99)
[2018-11-07] MEDS: INSULIN DETEMIR (LEVEMIR) 100 UNIT/ML SYR SQ SCH ×2 (21:25→22:01)
[2018-11-07] MEDS: HYDROcodone/APAP 5-325MG 1 EACH TAB PO PRN (21:52)
--- NOTE | 2018-11-07 22:58 | PN ---
PROGRESS NOTE DATE OF SERVICE: 11/07/2018. This 58-year-old woman was admitted with significant gangrene is supposed to undergo below-knee amputation. Dr. Hunt has requested cardiology clearance prior to surgery. No chest pain. No palpitations. No fever. PAST MEDICAL HISTORY: Reviewed. REVIEW OF SYSTEMS: CARDIOVASCULAR: No angina or palpitations. RESPIRATION: As mentioned earlier. GASTROINTESTINAL: As mentioned earlier. no dysuria. CENTRAL NERVOUS SYSTEM: No focal deficits. CURRENT MEDICATIONS: Reviewed and include: 1. Tylenol 325 mg q.4 p.r.n. 2. [place] 5 mg. 3. Zyloprim 300 mg. 4. Xanax 0.5 t.i.d. 5. Tenormin 25 mg b.i.d. 6. Lipitor 20 mg q.h.s. 7. Catapres 0.1 b.i.d. 8. Colcrys 0.6 daily. 9. Lexapro 20 mg q.h.s. 10.Neurontin 200 mg p.o. t.i.d. 11.Heparin 5000 subcu b.i.d. 12.HydroDIURIL 25 mg p.o. daily. 13.Dilaudid 0.5 mg q.3 hours. 14.Motrin. 15.NovoLog scale. 16.Levemir 30 units subcu q.h.s. 17.Vancomycin. 18.Narcan. 19.Metformin. 20.Protonix. 21.Zosyn IV. 22.Restoril. 23.P.r.n. medications. PHYSICAL EXAM: Alert and oriented times three. Pulse 71. Blood pressure 200/91, respiration 18, T-max 101.4, pulse ox 97% on room air. HEENT: Conjunctivae normal. NECK: No jugular venous distention. CARDIOVASCULAR: S1, S2 muffled. RESPIRATORY: Breath sounds diminished in the bases. Bilateral scattered rhonchi and crackles. ABDOMEN: Soft, nontender. No mass palpable. LEGS: Left foot gangrene present. NERVOUS SYSTEM: Higher functions as mentioned earlier. Moves all four limbs. No focal motor deficits. LABS: WBC 11.2, hemoglobin 10.2. Accu-Cheks noted. ASSESSMENT: 1. Acute left foot gangrene with diabetic foot. Wound culture showed poly sensitive E coli. 2. Continued fever. 3. Hypokalemia. 4. Acute renal failure secondary to dehydration. 5. Peripheral vascular disease. 6. Diabetes mellitus type 2. 7. Hypertension. 8. Hyperlipidemia. 9. History of cerebrovascular accident, transient ischemic attack. 10.Deep vein thrombosis prophylaxis. 11.Anemia, normocytic anemia of chronic disease. 12.Increased WBC. 13.History of gout. 14.History of uterine fibroid. 15.History of anxiety. 16.History of continued ongoing nicotine dependence. 17.History of optic neuritis. 18.FULL CODE. RECOMMENDATIONS AND DISCUSSION: Recommend to continue current medications and Cardiology evaluation. I would also recommend a set of cultures. Otherwise, continue the antibiotic in the form of Zosyn and vancomycin as mentioned earlier. The previous culture showed E coli. We will continue to monitor. Prognosis guarded. Further recommendations to follow. We will follow closely Dr. Hunt for possible amputation. MMODL / NICOLASN: [id number] /
[2018-11-08] MEDS: PIPERACILLIN-TAZOBACTAM 3.375 GM in SODIUM CHLORIDE 0.9% 100 ML IVPB SCH ×3 (03:48→21:01)
[2018-11-08] MEDS ORDERED: VANCOMYCIN TROUGH DUE 1 EACH MISC MISCELLANE ONE (05:00)
[2018-11-08 05:53] LABS: Glucose,Whole Blood 130 mg/dL (75-99)
[2018-11-08 06:04] LABS: Basophils % (A) 0 %; Eosinophils # (A) 0.3 k/uL (0-0.7); Eosinophils % (A) 3 %; HCT 28.4 % (34.0-46.0); HGB 9.2 gm/dL (11.4-16.0); Lymphocytes # (A) 1.6 k/uL (1.0-4.8); Lymphocytes % (A) 17 %; MCH 31.5 pg (25.0-35.0); MCHC 32.4 g/dL (31.0-37.0); MCV 97.3 fL (80.0-100.0); Mean Platelet Volume 8.8; Monocytes # (A) 0.6 k/uL (0-1.0); Monocytes % (A) 6 %; Neutrophils # (A) 7.1 k/uL (1.3-7.7); Neutrophils % (A) 73 %; Platelet Count 244 k/uL (150-450); RBC 2.92 m/uL (3.80-5.40); RDW 14.2 % (11.5-15.5); WBC 9.7 k/uL (3.8-10.6)
[2018-11-08] MEDS: INSULIN ASPART (NovoLOG) 100 UNIT/ML VIAL SQ SCH ×5 (06:18→21:55)
[2018-11-08 06:21] LABS: African American GFR (CKD) >90 (>60 ml/min/1.73 sqM); Anion Gap 8 mmol/L; Blood Urea Nitrogen 15 mg/dL (7-17); Calcium 8.7 mg/dL (8.4-10.2); Carbon Dioxide 23 mmol/L (22-30); Chloride 108 mmol/L (98-107); Glucose 114 mg/dL (74-99); Potassium 3.6 mmol/L (3.5-5.1); Sodium 139 mmol/L (137-145)
[2018-11-08] MEDS: METFORMIN 500 MG PO SCH ×2 (06:31→16:39)
[2018-11-08] MEDS: PANTOPRAZOLE 40 MG TABLET PO SCH (06:31)
[2018-11-08] MEDS: VANCOMYCIN 1,250 MG in SODIUM CHLORIDE 0.9% 250 ML IVPB SCH ×2 (06:31→16:40)
[2018-11-08] MEDS: GABAPENTIN 100 MG CAP PO SCH ×4 (09:19→21:01)
[2018-11-08] MEDS: HYDROCHLOROTHIAZIDE 25 MG TAB PO SCH (09:20)
[2018-11-08] MEDS: ATENOLOL 25 MG TAB PO SCH ×2 (09:20→21:02)
[2018-11-08] MEDS: ALLOPURINOL 300 MG TAB PO SCH (09:20)
[2018-11-08] MEDS: HEPARIN SODIUM,PORCINE 5,000 UNIT/ML 1 ML VIAL SQ SCH ×2 (09:20→21:03)
[2018-11-08] MEDS: COLCHICINE 0.6 MG EACH PO SCH (09:20)
[2018-11-08] MEDS: cloNIDine HCL 0.1 MG TAB PO SCH ×2 (09:20→21:02)
[2018-11-08] MEDS: POTASSIUM CHLORIDE ER 20 MEQ TAB.ER PO SCH (09:21)
[2018-11-08] MEDS: SODIUM CHLORIDE 0.9% 1,000 ML IV SCH ×2 (09:22→20:54)
[2018-11-08] MEDS: IBUPROFEN 800 MG TAB PO SCH ×4 (09:31→21:02)
[2018-11-08] MEDS: LISINOPRIL 5 MG TAB PO SCH ×2 (09:32→21:02)
--- NOTE | 2018-11-08 09:32 | CONS ---
CONSULTATION Mrs. Mars is a 58-year-old female who is followed by Dr. Armijo, has a history of hypertension, hyperlipidemia, diabetes mellitus, and chronic tobacco use as well as known history of peripheral vascular disease who has been receiving high-dose infusion of steroids because of optic neuritis and came in with an ulceration on the left foot and a blister with progressive discomfort and foul smelling lesion. She was evaluated by Dr. Hunt and was noted to have gangrene and decision was proceed with amputation. Cardiology consultation was requested. The patient's activity has been stable but limited prior to this event. She has a history of CVA and a prior history of cervical her surgery. She used a walker. She denies any symptoms of dyspnea. She denies any chest discomfort. She denies any dizziness or palpitation. She has occasional peripheral edema, but no PND nor orthopnea. She has no recent cardiac workup or no prior history of documented obstructive coronary artery disease. Her coronary risk factors are remarkable for the hypertension, hyperlipidemia, diabetes mellitus, and chronic tobacco use. MEDICATIONS: Her medications at home included insulin, Lipitor 20 mg daily, Lexapro, metformin 500 mg twice a day, clonidine 0.2 mg twice a day, hydrochlorothiazide 25 mg daily, Vasotec 20 mg twice a day, colchicine, atenolol 50 mg twice a day and Zyloprim. REVIEW OF SYSTEMS: RESPIRATORY SYSTEM: She has dyspnea on exertion. No recent wheezing or cough. GI SYSTEM: No recent GI bleeding. No peptic ulcer disease. SYSTEM: No dysuria or hematuria. NERVOUS SYSTEM: She has a history of stroke. PHYSICAL EXAMINATION: She is a 58-year-old female, alert, oriented, in no apparent distress. Afebrile today. She was febrile yesterday at 101.4. Blood pressure 136/70 with the heart rate in the 80s. HEAD: Normocephalic. EYES: Sclerae anicteric. NECK: No bruit. LUNGS: Clear to auscultation. HEART: Regular rate and rhythm. S1, S2. No S3 with systolic murmur heard at the base, ejection type. No diastolic murmur. No rub. ABDOMEN: Soft, nontender. Positive bowel sounds. No organomegaly. EXTREMITIES: No edema. Gangrene on the left foot with foul smell. LAB DATA: Lab data revealed BUN creatinine 15 and 0.6, potassium 3.6. Hemoglobin of 9.2. IMPRESSION: 1. Gangrene of the left foot with severe peripheral vascular disease. The patient is scheduled to undergo amputation. 2. History of hypertension. 3. Hyperlipidemia. 4. Diabetes mellitus. 5. Chronic tobacco use. RECOMMENDATION: From the cardiac standpoint, I will re-initiate treatment with an MEHRDAD inhibitor, that she was on before. We will continue on the statin as present. I will obtain echocardiogram with Doppler. Follow her blood pressure. The patient is stable to proceed with her surgical intervention. She has no recent history of CHF or acute ischemic event. I will continue her on beta pat. Depending on her progress, further recommendation will be made. Thank you for this consult. We will follow with you. ANGEL / IRENE: [id number] /
--- NOTE | 2018-11-08 10:51 | IR ---
Fluoroscopy HISTORY: Pain in left foot 2.6 minutes fluoroscopy time supplied to the referring clinician. 240 intraoperative C-arm images do cument the procedure. See dictated report from vascular surgery.
--- NOTE | 2018-11-08 11:48 | ECHOF ---
Referral Reason:htn MEASUREMENTS -------- HEIGHT: 157.5 cm WEIGHT: 74.4 kg BP: IVSd: 1.0 cm (0.6 - 1.1) LVIDd: 4.5 cm (3.9 - 5.3) LVPWd: 1.2 cm (0.6 - 1.1) IVSs: 1.7 cm LVIDs: 1.5 cm LVPWs: 2.0 cm LAESV Index (A-L): 17.03 ml/m Ao Diam: 2.5 cm (2.0 - 3.7) AV Cusp: 1.6 cm (1.5 - 2.6) LA Diam: 3.4 cm (2.7 - 3.8) MV EXCURSION: 18.395 mm (> 18.000) MV EF SLOPE: 95 mm/s (70 - 150) EPSS: 0.6 cm MV E Conor: 1.14 m/s MV DecT: 248 ms MV A Conor: 0.96 m/s MV E/A Ratio: 1.19 AR PHT: 214 ms RAP: 20.00 mmHg RVSP: 75.57 mmHg FINDINGS -------- Sinus rhythm. This was a technically good study. The left ventricular size is normal. Left ventricular wall thickness is normal. Overall left vent ricular systolic function is normal with, an EF between 55 - 60 %. Normal LAP Grade 2 diastolic dys functionwith elevated LAP The right ventricle is normal in size. The left atrial size is normal. Normal LA size by volume 22+/-6 ml/m2. The right atrial size is normal. Interatrial and interventricular septum intact. The aortic valve is trileaflet and appears structurally normal. Trace amount of aortic regurgitatio n. The mitral valve is normal. The mitral valve leaflets are mildly thickened. Mild mitral regurgita tion is present. Moderate to severe tricuspid regurgitation present. There is severe pulmonary hypertension. The r ight ventricular systolic pressure, as measured by Doppler, is 75.57mmHg. There is no pulmonic regurgitation present. The aortic root size is normal. The inferior vena cava is dilated with no significant inspiratory collapse which is consistent estima taina right atrial pressure of >20 mmHg. There is no pericardial effusion. CONCLUSIONS -------- 1. Sinus rhythm. 2. This was a technically good study. 3. The left ventricular size is normal. 4. Left ventricular wall thickness is normal. 5. Overall left ventricular systolic function is normal with, an EF between 55 - 60 %. 6. Normal LAP Grade 1 Diastolic Dysfunction. 7. The right ventricle is normal in size. 8. The left atrial size is normal. 9. Normal LA size by volume 22+/-6 ml/m2. 10. The right atrial size is normal. 11. Interatrial and interventricular septum intact. 12. The aortic valve is trileaflet and appears structurally normal. 13. Trace amount of aortic regurgitation. 14. The mitral valve is normal. 15. The mitral valve leaflets are mildly thickened. 16. Mild mitral regurgitation is present. 17. Moderate to severe tricuspid regurgitation present. 18. There is severe pulmonary hypertension. 19. The right ventricular systolic pressure, as measured by Doppler, is 75.57mmHg. 20. There is no pulmonic regurgitation present. 21. The aortic root size is normal. 22. The inferior vena cava is dilated with no significant inspiratory collapse which is consistent es timated right atrial pressure of >20 mmHg. 23. There is no pericardial effusion. DIRECTOR OF SCIENTIFIC RESEARCH: Denise Hollingsworth RDCS
[2018-11-08 12:50] LABS: Glucose,Whole Blood 141 mg/dL (75-99)
[2018-11-08 12:50] LABS: Hemoglobin A1C 6.7 % (4.0-6.0)
[2018-11-08] MEDS: ACETAMINOPHEN TAB 325 MG TAB PO PRN (16:39)
[2018-11-08 16:45] LABS: Glucose,Whole Blood 216 mg/dL (75-99)
[2018-11-08 21:02] LABS: Glucose,Whole Blood 272 mg/dL (75-99)
[2018-11-08] MEDS: ATORVASTATIN 40 MG TAB PO SCH (21:02)
[2018-11-08] MEDS: ESCITALOPRAM 20 MG TAB PO SCH (21:02)
[2018-11-08] MEDS: INSULIN DETEMIR (LEVEMIR) 100 UNIT/ML SYR SQ SCH (21:54)
[2018-11-08] MEDS: HYDROcodone/APAP 5-325MG 1 EACH TAB PO PRN (22:01)
[2018-11-09] MEDS: SODIUM CHLORIDE 0.9% 1,000 ML IV SCH ×2 (03:49→12:21)
[2018-11-09] MEDS: PIPERACILLIN-TAZOBACTAM 3.375 GM in SODIUM CHLORIDE 0.9% 100 ML IVPB SCH ×3 (04:22→20:12)
[2018-11-09 06:12] LABS: Glucose,Whole Blood 88 mg/dL (75-99)
[2018-11-09] MEDS: PANTOPRAZOLE 40 MG TABLET PO SCH (06:16)
[2018-11-09] MEDS: VANCOMYCIN 1,250 MG in SODIUM CHLORIDE 0.9% 250 ML IVPB SCH ×2 (06:18→17:16)
[2018-11-09 07:02] LABS: African American GFR (CKD) >90 (>60 ml/min/1.73 sqM); Anion Gap 9 mmol/L; Blood Urea Nitrogen 16 mg/dL (7-17); Carbon Dioxide 25 mmol/L (22-30); Chloride 108 mmol/L (98-107); Glucose 55 mg/dL (74-99); Potassium 3.4 mmol/L (3.5-5.1); Sodium 142 mmol/L (137-145)
--- NOTE | 2018-11-09 07:51 | PN ---
PROGRESS NOTE DATE OF SERVICE: 11/08/2018 DATE OF SERVICE: This 58-year-old woman who was admitted with significant gangrenous left toe, is being scheduled for surgery. Cardiology is evaluating the patient per Gilbert's recommendations for preop evaluation. A 2D echo showed ejection fraction of 55-60 percent. No chest pain. No palpitations. No fever. EXAM: Alert and oriented times three. Pulse is 55, blood pressure 149/60, respiration 18, temperature 98.8, pulse ox 98% on room air. HEENT: Conjunctivae normal. NECK: No JVD. CARDIAC: S1, S2 muffled. RESPIRATION: Breath sounds diminished in the bases. A few scattered rhonchi. ABDOMEN: Soft. Nontender. NERVOUS SYSTEM: No focal deficits. LAB STUDIES: WBC 9.2, hemoglobin 9.2, glucose 130 and hemoglobin A1c 6.7. ASSESSMENT: 1. Acute left foot gangrene with diabetic foot. Wound culture showing poly sensitive E coli. 2. Continued fever. 3. Hypokalemia. 4. Acute renal failure secondary to dehydration. 5. Peripheral vascular disease. 6. Diabetes mellitus type 2. 7. Hypertension. 8. Hyperlipidemia. 9. History of cerebrovascular accident, transient ischemic attack. 10.Deep vein thrombosis prophylaxis. 11.Anemia, normocytic anemia of chronic disease. 12.Increased WBC. 13.History of gout. 14.History uterine fibroid. 15.History of anxiety. 16.History of continued ongoing nicotine dependence. 17.History of optic neuritis. 18.FULL CODE. RECOMMENDATIONS AND DISCUSSION: Recommend to continue current medications, management and symptomatic treatment. Otherwise amputation per Dr. Hunt. Monitor blood sugars closely. Guarded prognosis. Further recommendations to follow. MMODL / IJN: [id number] /
[2018-11-09] MEDS: COLCHICINE 0.6 MG EACH PO SCH (08:00)
[2018-11-09] MEDS: IBUPROFEN 800 MG TAB PO SCH ×4 (08:00→23:26)
[2018-11-09] MEDS: ATENOLOL 25 MG TAB PO SCH ×2 (08:01→20:12)
[2018-11-09] MEDS: HEPARIN SODIUM,PORCINE 5,000 UNIT/ML 1 ML VIAL SQ SCH ×2 (08:01→20:13)
[2018-11-09] MEDS: ALLOPURINOL 300 MG TAB PO SCH (08:01)
[2018-11-09] MEDS: POTASSIUM CHLORIDE ER 20 MEQ TAB.ER PO SCH ×2 (08:01→20:13)
[2018-11-09] MEDS: cloNIDine HCL 0.1 MG TAB PO SCH ×2 (08:01→20:13)
[2018-11-09] MEDS: METFORMIN 500 MG PO SCH ×2 (08:01→17:16)
[2018-11-09] MEDS: LISINOPRIL 5 MG TAB PO SCH ×2 (08:01→20:12)
[2018-11-09] MEDS: HYDROCHLOROTHIAZIDE 25 MG TAB PO SCH (08:01)
--- NOTE | 2018-11-09 10:52 | PN ---
PROGRESS NOTE Ms. Mars is a 58-year-old female who presented with gangrene of the left foot. She is scheduled to undergo amputation by Dr. Hunt. She is feeling well this morning. Her breathing is stable. She denies any chest pain. No dizziness. No palpitation. She is supine without any symptoms. She is in sinus mechanism. She had an echocardiogram revealed preserved left ventricular size and systolic function with mild mitral and moderate severe tricuspid regurgitation and severe pulmonary hypertension. She continues to be at this time on: Atenolol 25 mg twice a day, Lipitor 40 mg daily, clonidine 0.1 mg twice a day, lisinopril 5 mg twice a day. PHYSICAL EXAMINATION: Blood pressure 125/60 with a heart rate in the 60s. LUNGS: Clear. HEART: Regular rate and rhythm. S1, S2. No S3. No rub. ABDOMEN: Soft, nontender. EXTREMITIES: No edema. Dressing on left foot. LAB DATA: Lab data revealed a potassium 3.4, BUN creatinine 16 and 0.6. IMPRESSION: 1. Gangrene of the left foot, scheduled for amputation. 2. History of hypertension. 3. Hyperlipidemia. 4. Tricuspid regurgitation and pulmonary hypertension, probably related to chronic tobacco use. 5. History of diabetes mellitus. RECOMMENDATIONS: From the cardiac standpoint, she is stable to proceed with her surgical intervention. I will continue present therapy. Depending on her progress, further recommendations will be made. MMODL / IJN: [id number] /
[2018-11-09] MEDS: INSULIN ASPART (NovoLOG) 100 UNIT/ML VIAL SQ SCH ×3 (11:53→21:34)
--- NOTE | 2018-11-09 11:58 | DS ---
DISCHARGE SUMMARY This 58-year-old diabetic female, history of severe peripheral vascular disease with gangrene of the left foot with no flow noted by angiography. The patient has severe infrapopliteal occlusive disease and atherosclerosis disease of the superficial femoral artery. The patient options were discussed: Below-knee versus above-knee. We will proceed with below-knee amputation AV for an ischemic changes of the stump. We will do [id number] amputation on the left side. Risks and complications of bleeding, infection, thrombosis has been discussed. The patient has been seen by Cardiology and cleared for surgery. MMODL / IJN: [id number] /
[2018-11-09 12:05] LABS: Glucose,Whole Blood 115 mg/dL (75-99)
[2018-11-09] MEDS ORDERED: POTASSIUM CHLORIDE ER 20 MEQ TAB.ER PO STA (12:10)
[2018-11-09] MEDS: GABAPENTIN 100 MG CAP PO SCH ×2 (16:09→23:25)
[2018-11-09 16:49] LABS: Glucose,Whole Blood 89 mg/dL (75-99)
--- NOTE | 2018-11-09 17:16 | PN ---
PROGRESS NOTE DATE OF SERVICE: 11/09/2018 This 58-year-old woman was admitted with acute left foot gangrene. Also, had E coli growing from the culture. Dr. Hunt is planning surgery. No chest pain. No palpitations. No fever. EXAM: Alert and oriented x3. Pulse 58, blood pressure 117/70, respiration 18, temperature 98.1, pulse ox 94% on room air. HEENT: Conjunctivae normal. NECK: No jugular venous distention. RESPIRATORY: Breath sounds diminished at the bases. A few scattered rhonchi. ABDOMEN: Soft, nontender. LEGS: No edema. NEURO SYSTEM: No focal deficits. LAB STUDIES: WBC noted. Sodium 142, potassium 3.4. ASSESSMENT: 1. Acute left foot gangrene with diabetic foot. Wound culture showing Escherichia coli sensitive. 2. Continued fever. 3. Hypokalemia. 4. Acute renal failure secondary to dehydration. 5. Peripheral vascular disease. 6. Diabetes mellitus type 2. 7. Hypertension. 8. History of hyperlipidemia. 9. History of cerebrovascular accident, transient ischemic attack. 10.History of anemia, normocytic anemia of chronic disease. 11.Increased WBC. 12.History of gout. 13.History of uterine fibroids. 14.History of anxiety. 15.Continued ongoing nicotine dependence. 16.History of optic neuritis. 17.FULL CODE. RECOMMENDATIONS AND DISCUSSION: Recommend to continue current management and symptomatic treatment. Replace potassium. Otherwise, continue the rest of medications. Cardiology clearance obtained and surgery per Dr. Hunt. Further recommendations to follow. MMODL / IJN: [id number] /
[2018-11-09] MEDS: ATORVASTATIN 40 MG TAB PO SCH (20:12)
[2018-11-09] MEDS: ESCITALOPRAM 20 MG TAB PO SCH (20:12)
[2018-11-09 20:59] LABS: Glucose,Whole Blood 180 mg/dL (75-99)
[2018-11-09] MEDS: INSULIN DETEMIR (LEVEMIR) 100 UNIT/ML SYR SQ SCH (21:35)
[2018-11-09] MEDS: HYDROcodone/APAP 5-325MG 1 EACH TAB PO PRN (23:25)
[2018-11-10] MEDS: VANCOMYCIN 1,250 MG in SODIUM CHLORIDE 0.9% 250 ML IVPB SCH ×2 (05:34→18:30)
[2018-11-10] MEDS: SODIUM CHLORIDE 0.9% 1,000 ML IV SCH ×2 (05:35→18:29)
[2018-11-10 06:30] LABS: Glucose,Whole Blood 62 mg/dL (75-99)
[2018-11-10] MEDS: INSULIN ASPART (NovoLOG) 100 UNIT/ML VIAL SQ SCH ×4 (06:31→21:06)
[2018-11-10] MEDS: PANTOPRAZOLE 40 MG TABLET PO SCH (06:31)
[2018-11-10 06:52] LABS: Glucose,Whole Blood 95 mg/dL (75-99)
[2018-11-10 07:06] LABS: African American GFR (CKD) >90 (>60 ml/min/1.73 sqM)
[2018-11-10] MEDS: METFORMIN 500 MG PO SCH ×2 (07:31→18:30)
[2018-11-10 07:58] LABS: Basophils % (A) 0 %; Eosinophils # (A) 0.2 k/uL (0-0.7); Eosinophils % (A) 1 %; HCT 30.3 % (34.0-46.0); HGB 10.1 gm/dL (11.4-16.0); Lymphocytes # (A) 1.8 k/uL (1.0-4.8); Lymphocytes % (A) 13 %; MCH 31.8 pg (25.0-35.0); MCHC 33.3 g/dL (31.0-37.0); MCV 95.4 fL (80.0-100.0); Mean Platelet Volume 8.7; Monocytes # (A) 0.8 k/uL (0-1.0); Monocytes % (A) 6 %; Neutrophils # (A) 10.5 k/uL (1.3-7.7); Neutrophils % (A) 78 %; Platelet Count 438 k/uL (150-450); RBC 3.17 m/uL (3.80-5.40); RDW 14.3 % (11.5-15.5); WBC 13.6 k/uL (3.8-10.6)
[2018-11-10 08:01] LABS: Anion Gap 10 mmol/L; Blood Urea Nitrogen 15 mg/dL (7-17); Calcium 9.3 mg/dL (8.4-10.2); Carbon Dioxide 25 mmol/L (22-30); Chloride 106 mmol/L (98-107); Glucose 51 mg/dL (74-99); Potassium 3.5 mmol/L (3.5-5.1); Sodium 141 mmol/L (137-145)
[2018-11-10] MEDS: HEPARIN SODIUM,PORCINE 5,000 UNIT/ML 1 ML VIAL SQ SCH ×2 (08:40→20:26)
[2018-11-10] MEDS: ALLOPURINOL 300 MG TAB PO SCH (08:40)
[2018-11-10] MEDS: POTASSIUM CHLORIDE ER 20 MEQ TAB.ER PO SCH ×2 (08:40→20:27)
[2018-11-10] MEDS: ATENOLOL 25 MG TAB PO SCH ×2 (08:40→20:26)
[2018-11-10] MEDS: LISINOPRIL 5 MG TAB PO SCH (08:40)
[2018-11-10] MEDS: HYDROCHLOROTHIAZIDE 25 MG TAB PO SCH (08:40)
[2018-11-10] MEDS: cloNIDine HCL 0.1 MG TAB PO SCH ×2 (08:40→20:27)
[2018-11-10] MEDS: GABAPENTIN 100 MG CAP PO SCH ×3 (08:40→20:27)
[2018-11-10] MEDS: IBUPROFEN 800 MG TAB PO SCH ×4 (08:41→20:26)
[2018-11-10] MEDS: HYDROmorphone 0.5 MG/0.5 ML SYRINGE IVP PRN ×3 (08:45→23:26)
[2018-11-10] MEDS: COLCHICINE 0.6 MG EACH PO SCH (11:27)
[2018-11-10] MEDS ORDERED: DEXTROSE 10 % IN WATER 250 ML IV ONE (11:57)
[2018-11-10 12:20] LABS: Glucose,Whole Blood 55 mg/dL (75-99)
--- NOTE | 2018-11-10 12:37 | PN ---
PROGRESS NOTE Mrs. Mars is a 58-year-old female with severe peripheral vascular disease who presented with gangrene of her left foot. She is scheduled to undergo surgical intervention with amputation today. She is feeling well. Her breathing is stable. She is denying any dizziness or palpitation. She denies any nausea. She has no symptoms of heart failure. Her echocardiogram revealed moderate to severe tricuspid regurgitation and severe pulmonary hypertension. She continues to be at this time on atenolol 25 mg twice a day, Lipitor 40 mg daily, clonidine 0.1 mg twice a day, hydrochlorothiazide 25 mg daily, lisinopril 5 mg twice a day, potassium. PHYSICAL EXAMINATION: Blood pressure remains elevated in the 170s with a heart rate in the 60s. LUNGS: Clear. HEART: Regular rate and rhythm, S1, S2. No S3 with systolic murmur, no diastolic murmur, no rub. ABDOMEN: Soft, nontender. Positive bowel sounds. EXTREMITIES: No edema with gangrene noted on the left foot. LAB DATA: Revealed a BUN and creatinine of 15 and 0.64, potassium 3.5, hemoglobin of 10.1. IMPRESSION: 1. Gangrene of the foot with severe peripheral vascular disease, scheduled for amputation. 2. Hypertension, remains elevated. 3. Hyperlipidemia. 4. Diabetes mellitus. RECOMMENDATION: I will increase the dose of her MEHRDAD inhibitor. Continue the rest of medical regimen. Proceed with surgery as planned. Will follow her renal function and depending on her progress, further recommendation will be made. MMODL / IJN: [id number] /
[2018-11-10 12:52] LABS: Glucose,Whole Blood 119 mg/dL (75-99)
[2018-11-10] MEDS ORDERED: diphenhydrAMINE 50 MG/ML 1 ML VIAL ONE (13:34)
[2018-11-10] MEDS ORDERED: MIDAZOLAM 2 MG/2 ML VIAL ONE (13:34)
[2018-11-10] MEDS ORDERED: PROPOFOL 10 MG/ML 20 ML VIAL IV ONE (13:34)
[2018-11-10] MEDS ORDERED: SODIUM CHLORIDE 0.9% 1,000 ML IV ONE (13:35)
[2018-11-10] MEDS ORDERED: LACTATED RINGERS 1,000 ML IV ONE (15:32)
[2018-11-10] MEDS: HYDROmorphone 1 MG/ML 1 ML SYRINGE IVP ONE ×2 (16:23→16:28)
[2018-11-10 16:49] LABS: Glucose,Whole Blood 83 mg/dL (75-99)
[2018-11-10 17:04] LABS: Glucose,Whole Blood 81 mg/dL (75-99)
--- NOTE | 2018-11-10 18:07 | OP ---
OPERATIVE REPORT PREOPERATIVE DIAGNOSIS: Ischemic left foot with gangrene and no flow to the left foot. PROCEDURE: Left below-knee amputation. PROCEDURE DESCRIPTION: This patient was brought to the operating room, and left leg was prepped and draped in the usual sterile manner. Incision was made for the anterior flap 6 cm from the tibial tuberosity and deepened through skin, fat and fascia. The posterior flap incision was made, which was longer than the anterior flap, deepened through skin, fat and fascia. After that, compartment muscles were divided and also the tibial vein and tibial artery were suture-ligated. Then the fibula was isolated from muscle compartment and, using periosteum elevator, the periosteum was elevated from the fibula and the fibula was isolated and divided with an electric saw shorter than the tibia. Then the periosteum elevator was used to elevate the periosteum. After that the medial compartment muscles were divided and tibial vessels were isolated. They were heavily calcified. Vein was divided and the tibial nerve was divided by traction. Tibial vessels were suture-ligated with Prolene. Then the tibia was divided with the hand saw and by keeping traction we created the posterior flap and the amputation was completed. Specimen was removed. After that, we checked the hemostasis. Hemostasis was well controlled and the wound was copiously irrigated with hydrogen peroxide and saline. After that, the posterior compartment muscles were approximated with anterior compartment muscles with 0 Vicryl with interrupted suture. Fascia was approximated with 0 Vicryl with interrupted suture. Skin was closed with 4-0 nylon with mattress and interrupted suture. Dressing was applied. Patient tolerated the procedure well. MMODL / IJN: [id number] /
[2018-11-10] MEDS: ATORVASTATIN 40 MG TAB PO SCH (20:26)
[2018-11-10] MEDS: ESCITALOPRAM 20 MG TAB PO SCH (20:27)
[2018-11-10] MEDS: LISINOPRIL 10 MG TAB PO SCH (20:27)
[2018-11-10 20:52] LABS: Glucose,Whole Blood 108 mg/dL (75-99)
[2018-11-10] MEDS: INSULIN DETEMIR (LEVEMIR) 100 UNIT/ML SYR SQ SCH (21:06)
--- NOTE | 2018-11-10 21:56 | PN ---
PROGRESS NOTE DATE OF SERVICE: 11/10/2018 This 58-year-old woman admitted with left foot gangrene was slated to have amputation by Dr. Hunt today. No chest pain. No palpitations. No fever. On exam, alert and oriented x3. Pulse 54, blood pressure 164/74, respiration 18, temperature normal, pulse ox 92% on room air. HEENT: Conjunctivae normal. NECK: No jugular venous distention. CARDIOVASCULAR SYSTEM: S1, S2 muffled. RESPIRATORY SYSTEM: Breath sounds diminished at the bases. No rhonchi. No crackles. ABDOMEN: Soft, non-tender. LEGS: Left with gangrene. NERVOUS SYSTEM: No focal deficit. LABS: WBC 13.6, hemoglobin ntd ASSESSMENT: 1. Acute left foot gangrene with diabetic foot. Wound culture showing Escherichia coli, sensitive. 2. Continued fever. 3. Hypokalemia. 4. Acute renal failure secondary to dehydration. 5. Peripheral vascular disease. 6. Diabetes mellitus, type 2. 7. Hypertension. 8. History of hyperlipidemia. 9. History of cerebrovascular accident, transient ischemic attack. 10.History of anemia; normocytic anemia of chronic disease. 11.Increased white count. 12.History of gout. 13.History of uterine fibroids. 14.History of anxiety. 15.Continued ongoing nicotine dependence. 16.History of optic neuritis. 17.FULL CODE. RECOMMENDATIONS AND DISCUSSION: I recommend to continue current medications, continue with the monitoring, symptomatic treatment. Follow closely. Monitor blood sugars and blood pressure closely. Amputation surgery per Dr. Hunt. Guarded prognosis. Further recommendations to follow. MMODL / IJN: [id number] / BILL
[2018-11-11 02:06] LABS: Glucose,Whole Blood 93 mg/dL (75-99)
[2018-11-11] MEDS: HYDROmorphone 0.5 MG/0.5 ML SYRINGE IVP PRN ×6 (03:15→22:56)
[2018-11-11 06:19] LABS: Glucose,Whole Blood 102 mg/dL (75-99)
[2018-11-11] MEDS: INSULIN ASPART (NovoLOG) 100 UNIT/ML VIAL SQ SCH ×4 (06:27→21:28)
[2018-11-11] MEDS: METFORMIN 500 MG PO SCH ×2 (06:37→17:42)
[2018-11-11] MEDS: VANCOMYCIN 1,250 MG in SODIUM CHLORIDE 0.9% 250 ML IVPB SCH ×2 (06:38→17:35)
[2018-11-11] MEDS: PANTOPRAZOLE 40 MG TABLET PO SCH (06:38)
[2018-11-11] MEDS: SODIUM CHLORIDE 0.9% 1,000 ML IV SCH ×2 (06:38→21:29)
[2018-11-11 07:30] LABS: African American GFR (CKD) >90 (>60 ml/min/1.73 sqM); Anion Gap 10 mmol/L; Blood Urea Nitrogen 11 mg/dL (7-17); Calcium 9.2 mg/dL (8.4-10.2); Carbon Dioxide 23 mmol/L (22-30); Chloride 107 mmol/L (98-107); Glucose 85 mg/dL (74-99); Potassium 4.4 mmol/L (3.5-5.1); Sodium 140 mmol/L (137-145)
[2018-11-11] MEDS: IBUPROFEN 800 MG TAB PO SCH ×4 (07:58→21:26)
[2018-11-11] MEDS: LISINOPRIL 10 MG TAB PO SCH (07:58)
[2018-11-11] MEDS: POTASSIUM CHLORIDE ER 20 MEQ TAB.ER PO SCH ×2 (07:58→21:26)
[2018-11-11] MEDS: GABAPENTIN 100 MG CAP PO SCH ×3 (07:58→21:26)
[2018-11-11] MEDS: cloNIDine HCL 0.1 MG TAB PO SCH ×2 (07:58→21:25)
[2018-11-11] MEDS: ALLOPURINOL 300 MG TAB PO SCH (07:59)
[2018-11-11] MEDS: HYDROCHLOROTHIAZIDE 25 MG TAB PO SCH (07:59)
[2018-11-11] MEDS: ATENOLOL 25 MG TAB PO SCH ×2 (07:59→21:25)
[2018-11-11] MEDS: HEPARIN SODIUM,PORCINE 5,000 UNIT/ML 1 ML VIAL SQ SCH ×2 (07:59→21:28)
[2018-11-11] MEDS: COLCHICINE 0.6 MG EACH PO SCH (08:02)
[2018-11-11 11:52] LABS: Glucose,Whole Blood 95 mg/dL (75-99)
--- NOTE | 2018-11-11 13:44 | PN ---
PROGRESS NOTE Mrs. Mars is a 58-year-old female who presented with a gangrenous foot and underwent amputation yesterday. She is feeling well today. She is complaining of back pain but no chest pain. Her breathing has been stable. She denies any dizziness or palpitations. She denies any nausea. She continues to be on atenolol 25 mg twice a day, Lipitor 40 mg daily, clonidine 0.1 mg twice a day, lisinopril 10 mg twice a day, hydrochlorothiazide 25 mg once a day. PHYSICAL EXAMINATION: VITAL SIGNS: Blood pressure 156/69, earlier in the 200s, with heart rate in the 60s. LUNGS: Clear. HEART: Regular rate, rhythm. S1, S2. No S3, with systolic ejection murmur. No diastolic murmur. No rub. ABDOMEN: Soft, nontender. EXTREMITIES: No edema on the right side. Status post amputation on the left side. LAB DATA: Lab data revealed BUN and creatinine of 11 and 0.58, potassium 4.4. IMPRESSION: 1. 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 2. Hypertension; remains elevated. 3. Hyperlipidemia. 4. Pulmonary hypertension. 5. Chronic tobacco use. 6. Diabetes mellitus. RECOMMENDATIONS: I will increase the dose of her lisinopril, and I will add amlodipine to her regimen. Continue the rest of her medical regimen. Increase her level of activity. Depending on her response to the blood pressure adjustment, further recommendations will be made. MMODL / IJN: [id number] /
[2018-11-11] MEDS: amLODIPine 5 MG TAB PO SCH (15:14)
--- NOTE | 2018-11-11 16:17 | PN ---
PROGRESS NOTE DATE OF SERVICE: 11/11/2018 This 58-year-old woman was admitted with acute left foot gangrene and underwent left below-knee amputation by Dr. Hunt. No chest pain. No palpitations. No fever. Cardiology is following the patient closely. On exam, alert and oriented x3. Pulse 58, blood pressure 156/69, respiration 18, temperature 98.6, pulse ox 93% on room air. HEENT: Conjunctivae normal. NECK: No jugular venous distention. CARDIOVASCULAR SYSTEM: S1, S2 muffled. RESPIRATORY SYSTEM: Breath sounds diminished at the bases. A few scattered rhonchi. No crackles. ABDOMEN: Soft, non-tender. LEGS: Status post left below-knee amputation. NERVOUS SYSTEM: No focal deficit. LABS: Sodium 140, potassium 4.4. WBC noted. CBC not available. ASSESSMENT: 1. Acute left foot gangrene with diabetic foot, status post left below-knee amputation. 2. Wound culture showed Escherichia coli sensitive. 3. Continued fever. 4. Hypokalemia. 5. Acute renal failure secondary to dehydration. 6. Peripheral vascular disease. 7. Diabetes mellitus, type 2. 8. Hypertension. 9. History of hyperlipidemia. 10.History of cerebrovascular accident, transient ischemic attack. 11.History of anemia; normocytic anemia of chronic disease. 12.Increased white count. 13.History of gout. 14.History of uterine fibroids. 15.History of anxiety. 16.Continued ongoing nicotine dependence. 17.History of optic neuritis. 18.FULL CODE. RECOMMENDATIONS AND DISCUSSION: I recommend to continue current medications, continue with the monitoring, symptomatic treatment. Otherwise, I would recommend monitoring the blood sugars closely. Repeat labs will be ordered. Guarded prognosis. PT/OT evaluation and eventually possible ECF rehab. Further recommendations to follow. MMODL / IJN: [id number] /
[2018-11-11 16:42] LABS: Glucose,Whole Blood 191 mg/dL (75-99)
[2018-11-11] MEDS: HYDROcodone/APAP 5-325MG 1 EACH TAB PO PRN (17:41)
[2018-11-11 20:44] LABS: Glucose,Whole Blood 223 mg/dL (75-99)
[2018-11-11] MEDS: ATORVASTATIN 40 MG TAB PO SCH (21:25)
[2018-11-11] MEDS: ESCITALOPRAM 20 MG TAB PO SCH (21:25)
[2018-11-11] MEDS: LISINOPRIL 20 MG TAB PO SCH (21:26)
[2018-11-11] MEDS: INSULIN DETEMIR (LEVEMIR) 100 UNIT/ML SYR SQ SCH (21:28)
[2018-11-12 03:06] LABS: Glucose,Whole Blood 131 mg/dL (75-99)
[2018-11-12] MEDS ORDERED: VANCOMYCIN TROUGH DUE 1 EACH MISC MISCELLANE ONE (05:00)
[2018-11-12 06:24] LABS: Glucose,Whole Blood 103 mg/dL (75-99)
[2018-11-12 06:34] LABS: Basophils % (A) 0 %; Eosinophils # (A) 0.2 k/uL (0-0.7); Eosinophils % (A) 2 %; HGB 9.5 gm/dL (11.4-16.0); Lymphocytes # (A) 2.2 k/uL (1.0-4.8); Lymphocytes % (A) 19 %; MCH 30.6 pg (25.0-35.0); MCHC 32.9 g/dL (31.0-37.0); MCV 93.1 fL (80.0-100.0); Mean Platelet Volume 8.3; Monocytes # (A) 0.6 k/uL (0-1.0); Monocytes % (A) 5 %; Neutrophils % (A) 72 %; Platelet Count 433 k/uL (150-450); RBC 3.12 m/uL (3.80-5.40); RDW 14.5 % (11.5-15.5); WBC 11.2 k/uL (3.8-10.6)
[2018-11-12 06:38] LABS: African American GFR (CKD) >90 (>60 ml/min/1.73 sqM); Anion Gap 9 mmol/L; Blood Urea Nitrogen 14 mg/dL (7-17); Carbon Dioxide 27 mmol/L (22-30); Chloride 103 mmol/L (98-107); Glucose 93 mg/dL (74-99); Sodium 139 mmol/L (137-145)
[2018-11-12] MEDS: VANCOMYCIN 1,250 MG in SODIUM CHLORIDE 0.9% 250 ML IVPB SCH ×2 (06:49→17:40)
[2018-11-12] MEDS: INSULIN ASPART (NovoLOG) 100 UNIT/ML VIAL SQ SCH ×4 (06:50→23:21)
[2018-11-12] MEDS: PANTOPRAZOLE 40 MG TABLET PO SCH (06:50)
[2018-11-12] MEDS: METFORMIN 500 MG PO SCH ×2 (06:50→17:45)
[2018-11-12] MEDS: HYDROmorphone 0.5 MG/0.5 ML SYRINGE IVP PRN ×3 (06:51→20:26)
[2018-11-12] MEDS: cloNIDine HCL 0.1 MG TAB PO SCH ×2 (09:14→23:20)
[2018-11-12] MEDS: ALLOPURINOL 300 MG TAB PO SCH (09:14)
[2018-11-12] MEDS: GABAPENTIN 100 MG CAP PO SCH ×3 (09:14→23:20)
[2018-11-12] MEDS: LISINOPRIL 20 MG TAB PO SCH ×2 (09:14→23:16)
[2018-11-12] MEDS: HYDROCHLOROTHIAZIDE 25 MG TAB PO SCH (09:14)
[2018-11-12] MEDS: IBUPROFEN 800 MG TAB PO SCH ×4 (09:14→23:16)
[2018-11-12] MEDS: amLODIPine 5 MG TAB PO SCH (09:14)
[2018-11-12] MEDS: HEPARIN SODIUM,PORCINE 5,000 UNIT/ML 1 ML VIAL SQ SCH ×2 (09:15→23:22)
[2018-11-12] MEDS: POTASSIUM CHLORIDE ER 20 MEQ TAB.ER PO SCH ×2 (09:15→23:19)
[2018-11-12] MEDS: ATENOLOL 25 MG TAB PO SCH ×2 (09:15→23:20)
--- NOTE | 2018-11-12 09:21 | PN ---
PROGRESS NOTE 58-year-old diabetic female with severe peripheral vascular disease with gangrene of the left foot. The patient went for a left BK amputation. Today, we have changed the dressing. Stump site looks clean. No drainage or redness noted. PLAN: Continue with physical therapy. The patient will be going to the intermediate and will follow up in my office. MMODL / IRENE: [id number] /
--- NOTE | 2018-11-12 10:05 | PN ---
PROGRESS NOTE Mrs. Masr is a 58-year-old female with a history of severe peripheral vascular disease, history of diabetes, hypertension, and hyperlipidemia. She underwent amputation of her gangrenous foot on the left side. She is feeling well this morning. She denies any chest pain. Her back is better. She denies any dizziness or palpitation. She denies any nausea. She continued to be in sinus mechanism. She was evaluated by Dr. Hunt this morning. She continued be on amlodipine 5 mg daily, atenolol 25 mg twice a day, Lipitor 40 mg daily, clonidine 0.1 mg twice a day, hydrochlorothiazide 25 mg daily, lisinopril 20 mg twice a day, potassium supplementation. PHYSICAL EXAMINATION: Blood pressure running in the 120s and 130s with a heart rate in 50s. She has a temperature of 100.1. LUNGS: Clear. HEART: Regular rate and rhythm, S1, S2. No S3. No rub with a systolic murmur at the base. No diastolic murmur. ABDOMEN: Soft, nontender. Positive bowel sounds. No organomegaly. EXTREMITIES: No edema on the right side. Dressing noted on the left side. LAB DATA: Lab data revealed BUN and creatinine 14 and 0.66, potassium 4.0, hemoglobin of 9.5. IMPRESSION: 1. Gangrene of the left foot status post amputation. 2. Hypertension. 3. Hyperlipidemia. 4. Diabetes. 5. Chronic tobacco use. RECOMMENDATION: We will continue present therapy. Continue to follow blood pressure and depending on the trend, further adjustment will be needed. At this time, we will continue on the present regimen. MMODL / IJN: [id number] /
[2018-11-12] MEDS: SODIUM CHLORIDE 0.9% 1,000 ML IV SCH (11:20)
[2018-11-12] MEDS: COLCHICINE 0.6 MG EACH PO SCH (11:27)
[2018-11-12 12:11] LABS: Glucose,Whole Blood 119 mg/dL (75-99)
[2018-11-12 17:10] LABS: Glucose,Whole Blood 181 mg/dL (75-99)
--- NOTE | 2018-11-12 19:41 | PN ---
PROGRESS NOTE DATE OF SERVICE: 11/12/2018. DATE OF SERVICE: This 58-year-old woman was admitted with acute left foot gangrene and diabetic foot is being closely monitored. The patient underwent left below-knee amputation. No chest pain. No palpitations. No fever. The patient is slated to have ECF rehab. Dr. Hunt and Cardiology following the patient closely. EXAM: Alert and oriented times three. Pulse 50, blood pressure 139/52, respirations 16, temperature 98.4, pulse ox 98% on room air. HEENT: Conjunctivae normal. NECK: No JVD. CARDIOVASCULAR: S1, S2 muffled. RESPIRATIONS: Breath sounds diminished at the bases. No rhonchi. No crackles. ABDOMEN is soft, nontender. LEGS: Status post left below-knee amputation. NERVOUS SYSTEM: No focal deficits. LAB STUDIES: WBC 11.9, hemoglobin 10.5. ASSESSMENT: 1. Acute left foot gangrene with diabetic foot, status post left below-knee amputation. 2. Wound culture showing E coli sensitive. 3. Continued fever. 4. Hypokalemia. 5. Acute renal failure secondary to dehydration. 6. Peripheral vascular disease. 7. Diabetes mellitus type 2. 8. Hypertension. 9. Hyperlipidemia. 10.Anemia, normocytic anemia of chronic disease. 11.Increased WBC. 12.History of gout. 13.History of uterine fibroids. 14.History of anxiety. 15.Continued ongoing nicotine dependence. 16.History of optic neuritis. 17.FULL CODE. RECOMMENDATIONS AND DISCUSSION: This 58-year-old woman who presented with multiple medical problems, we will monitor the patient closely, continue the current medications, management and symptomatic treatment. Otherwise, at this time, I recommend continue the current medications, PT/OT evaluation, possible ECF rehab. Closely follow with Vascular Surgery. Further recommendations to follow. MMODL / IJN: [id number] /
[2018-11-12 21:22] LABS: Glucose,Whole Blood 179 mg/dL (75-99)
[2018-11-12] MEDS: ATORVASTATIN 40 MG TAB PO SCH (23:20)
[2018-11-12] MEDS: ESCITALOPRAM 20 MG TAB PO SCH (23:20)
[2018-11-12] MEDS: INSULIN DETEMIR (LEVEMIR) 100 UNIT/ML SYR SQ SCH (23:21)
[2018-11-13] MEDS: SODIUM CHLORIDE 0.9% 1,000 ML IV SCH ×2 (05:38→11:49)
[2018-11-13] MEDS: VANCOMYCIN 1,250 MG in SODIUM CHLORIDE 0.9% 250 ML IVPB SCH (06:31)
[2018-11-13 06:38] LABS: Glucose,Whole Blood 112 mg/dL (75-99)
[2018-11-13 07:14] LABS: Basophils % (A) 0 %; Eosinophils # (A) 0.3 k/uL (0-0.7); Eosinophils % (A) 3 %; HCT 29.3 % (34.0-46.0); HGB 9.4 gm/dL (11.4-16.0); Lymphocytes # (A) 1.7 k/uL (1.0-4.8); Lymphocytes % (A) 18 %; MCH 30.8 pg (25.0-35.0); MCHC 32.1 g/dL (31.0-37.0); MCV 95.9 fL (80.0-100.0); Mean Platelet Volume 7.5; Monocytes # (A) 0.5 k/uL (0-1.0); Monocytes % (A) 5 %; Neutrophils # (A) 6.8 k/uL (1.3-7.7); Neutrophils % (A) 72 %; Platelet Count 440 k/uL (150-450); RBC 3.05 m/uL (3.80-5.40); WBC 9.5 k/uL (3.8-10.6)
[2018-11-13] MEDS: PANTOPRAZOLE 40 MG TABLET PO SCH (07:26)
[2018-11-13 07:29] LABS: African American GFR (CKD) >90 (>60 ml/min/1.73 sqM); Anion Gap 10 mmol/L; Blood Urea Nitrogen 18 mg/dL (7-17); Calcium 9.2 mg/dL (8.4-10.2); Carbon Dioxide 23 mmol/L (22-30); Chloride 110 mmol/L (98-107); Glucose 86 mg/dL (74-99); Potassium 3.9 mmol/L (3.5-5.1); Sodium 143 mmol/L (137-145)
[2018-11-13] MEDS: METFORMIN 500 MG PO SCH ×2 (07:43→17:43)
[2018-11-13] MEDS: INSULIN ASPART (NovoLOG) 100 UNIT/ML VIAL SQ SCH ×4 (07:43→22:55)
[2018-11-13] MEDS: amLODIPine 5 MG TAB PO SCH (08:23)
[2018-11-13] MEDS: HYDROCHLOROTHIAZIDE 25 MG TAB PO SCH (08:23)
[2018-11-13] MEDS: cloNIDine HCL 0.1 MG TAB PO SCH ×3 (08:23→22:55)
[2018-11-13] MEDS: GABAPENTIN 100 MG CAP PO SCH ×3 (08:23→22:53)
[2018-11-13] MEDS: ATENOLOL 25 MG TAB PO SCH ×2 (08:23→22:54)
[2018-11-13] MEDS: IBUPROFEN 800 MG TAB PO SCH ×4 (08:24→22:53)
[2018-11-13] MEDS: COLCHICINE 0.6 MG EACH PO SCH (08:24)
[2018-11-13] MEDS: HEPARIN SODIUM,PORCINE 5,000 UNIT/ML 1 ML VIAL SQ SCH ×2 (08:24→22:54)
[2018-11-13] MEDS: ALLOPURINOL 300 MG TAB PO SCH (08:24)
[2018-11-13] MEDS: LISINOPRIL 20 MG TAB PO SCH ×2 (08:24→22:54)
[2018-11-13] MEDS: POTASSIUM CHLORIDE ER 20 MEQ TAB.ER PO SCH ×2 (08:24→22:55)
[2018-11-13] MEDS: HYDROcodone/APAP 5-325MG 1 EACH TAB PO PRN ×2 (10:49→22:52)
--- NOTE | 2018-11-13 11:34 | P.DS ---
Providers Date of admission: 11/02/18 12:38 Expected date of discharge: 11/13/18 Attending physician: Rene Armijo Consults: 11/02/18 12:55 Consult Physician Routine Consulting Provider: Siddharth Brown Consult Reason/Comments: gangrene, DM Do you want consulting provider notified?: Yes Consult Physician Routine Consulting Provider: Juan Hunt Consult Reason/Comments: PAD, gangrene left foot Do you want consulting provider notified?: Yes 11/07/18 13:59 Consult Physician Routine Consulting Provider: Delicia Sheppard Consult Reason/Comments: cardio clearance for amputation surgery Do you want consulting provider notified?: Yes Primary care physician: Rene Armijo Hospital Course: Final Diagnoses: -Acute left diabetic foot with gangrene, status post left BKA -Wound culture reporting E. coli -Diabetes mellitus -Severe peripheral vascular disease disease with multiple stenosis involving the left superficial femoral artery. -Hypertension -Hyperlipidemia -Ongoing nicotine dependence Hospital course: This is a 58-year-old female admitted with diabetic foot, acute left foot gangrene, status post left BKA. Maintained on IV antibiotics as per ID. afebrile. Denies chest pain, palpitations or shortness of breath. Significant clinical improvement. Patient is being discharged to subacute rehab.,Pending vascular surgeons clearance, in a stable condition with guarded prognosis. EXAM: Alert and oriented 3, no acute distress> CV: S1 and S2, regular, systolic murmur LUNGS: Bilateral bases diminished ABD: Soft, nontender, positive bowel sounds NEURO: No focal deficits Extremity: BKA J Carlos wrap dressing clean dry and intact Microbiology 11/07/18 21:28 Blood Blood Culture - Preliminary No Growth after 120 hours 11/02/18 12:15 Blood Blood Culture - Final No Growth after 144 hours 11/02/18 15:30 Foot - Left Gram Stain - Final 11/02/18 15:30 Foot - Left Wound Culture - Final Escherichia coli 11/02/18 16:00 Urine,Clean Catch Urine Culture - Final The impression and plan of care has been dictated as directed. : I performed a history and examination of this patient, discussed the same with the dictator. I agree with the dictator's note ,documented as a scribe. Any additional findings or plans will be noted. Time taken: 35 minutes Patient Condition at Discharge: Stable Plan - Discharge Summary New Discharge Prescriptions: New cloNIDine HCL [Catapres] 0.1 mg PO BID tab Atorvastatin [Lipitor] 40 mg PO HS tab Melatonin 5 mg PO HS PRN #10 tablet PRN Reason: Insomnia HYDROcodone/APAP 5-325MG [[place] 5-325] 1 each PO Q6HR PRN #12 tab PRN Reason: Pain amLODIPine [Norvasc] 5 mg PO DAILY tab Pantoprazole [Protonix] 40 mg PO AC-BRKFST tablet.dr Mejia-Docusate Sodium [Senokot-S] 2 tab PO BID #30 tablet Atenolol [Tenormin] 25 mg PO BID tab Lisinopril [Zestril] 20 mg PO BID tab INSULIN LISPRO (HumaLOG) [humaLOG] 0 unit SQ ACHS #1 vial Continue metFORMIN HCL ER [Glucophage Xr] 500 mg PO BID Potassium Chloride [Klor-Con Sprinkle] 20 meq PO BID Insulin Glargine,Hum.rec.anlog [Lantus Solostar] 30 unit SQ HS Colchicine [Colcrys] 0.6 mg PO DAILY Allopurinol [Zyloprim] 300 mg PO DAILY Hydrochlorothiazide [Hydrodiuril] 25 mg PO DAILY #30 tab Escitalopram [Lexapro] 20 mg PO HS Acetaminophen Tab [Tylenol] 325 mg PO Q4H PRN PRN Reason: Pain Gabapentin [Neurontin] 200 mg PO TID #9 capsule Discontinued Atenolol [Tenormin] 50 mg PO BID Enalapril [Vasotec] 20 mg PO BID cloNIDine HCL [Catapres] 0.2 mg PO BID #60 tab Atorvastatin [Lipitor] 20 mg PO HS Discharge Medication List Insulin Glargine,Hum.rec.anlog [Lantus Solostar] 30 unit SQ HS 03/29/17 [History] Potassium Chloride [Klor-Con Sprinkle] 20 meq PO BID 03/29/17 [History] metFORMIN HCL ER [Glucophage Xr] 500 mg PO BID 03/29/17 [History] Allopurinol [Zyloprim] 300 mg PO DAILY 10/21/17 [History] Colchicine [Colcrys] 0.6 mg PO DAILY 10/21/17 [History] Hydrochlorothiazide [Hydrodiuril] 25 mg PO DAILY #30 tab 10/25/17 [Rx] Acetaminophen Tab [Tylenol] 325 mg PO Q4H PRN 11/02/18 [History] Escitalopram [Lexapro] 20 mg PO HS 11/02/18 [History] Atenolol [Tenormin] 25 mg PO BID tab 11/13/18 [Rx] Atorvastatin [Lipitor] 40 mg PO HS tab 11/13/18 [Rx] Gabapentin [Neurontin] 200 mg PO TID #9 capsule 11/13/18 [Rx] HYDROcodone/APAP 5-325MG [[place] 5-325] 1 each PO Q6HR PRN #12 tab 11/13/18 [Rx] INSULIN LISPRO (HumaLOG) [humaLOG] 0 unit SQ ACHS #1 vial 11/13/18 [Rx] Lisinopril [Zestril] 20 mg PO BID tab 11/13/18 [Rx] Melatonin 5 mg PO HS PRN #10 tablet 11/13/18 [Rx] Pantoprazole [Protonix] 40 mg PO AC-BRKFST tablet. 11/13/18 [Rx] Sennosides-Docusate Sodium [Senokot-S] 2 tab PO BID #30 tablet 11/13/18 [Rx] amLODIPine [Norvasc] 5 mg PO DAILY tab 11/13/18 [Rx] cloNIDine HCL [Catapres] 0.1 mg PO BID tab 11/13/18 [Rx] Follow up Appointment(s)/Referral(s): Rene Armijo DO [Primary Care Provider] - 1 Week (After DC from subacute rehab) Siddharth Brown MD [STAFF PHYSICIAN] - 1 Week Juan Hunt MD [STAFF PHYSICIAN] - 1 Week Patient Instructions/Handouts: Peripheral Artery Disease (DC), Gangrene (DC) Activity/Diet/Wound Care/Special Instructions: [place] pending cardiology, vascular surgery clearance, antibiotics as per ID Diet: Consistent carb CBC, BMP in 3 days
[2018-11-13 12:17] LABS: Glucose,Whole Blood 103 mg/dL (75-99)
--- NOTE | 2018-11-13 15:08 | P.PN ---
Subjective Progress Note Date: 11/13/18 this is a 58-year-old female with history of severe peripheral vascular disease, diabetes, hypertension, hyperlipidemia, who underwent amputation of her gangrenous foot on the left side. Cardiology consultation was requested because of uncontrolled hypertension. Patient feels well overall this morning, no overt complaints.blood pressure 150/70 with a heart rate in the 50s, 96% on room air. We will increase the Catapres to a 3 times a day dose today. Objective - Vital Signs Vital signs: Vital Signs Temp 98.8 F 11/13/18 11:34 Pulse 52 L 11/13/18 11:34 Resp 16 11/13/18 11:34 BP 150/70 11/13/18 11:34 Pulse Ox 96 11/13/18 11:34 Intake & Output 11/12/18 11/13/18 11/13/18 18:59 06:59 18:59 Intake Total 1360 920 Output Total 1900 5550 3400 Balance -540 -0350 -2480 Weight 70.5 kg Intake: IV 400 Sodium Chloride 0.9% 1, 150 000 ml @ 75 mls/hr IV . [id number] EUGENIO Rx#:[id number] Vancomycin 1,250 mg In 250 Sodium Chloride 0.9% 250 ml @ 125 mls/hr IVPB Q12H EUGENIO Rx#:[id number] Oral 960 920 Output: Urine 1900 5550 3400 Other: Voiding Method Indwelling Catheter # Voids 3 - Exam General: The patient is awake and alert, in no distress, and does not appear acutely ill. Eye: Pupils are equal, round and reactive to light, extra-ocular movements are intact. No nystagmus. There is normal conjunctiva bilaterally. No signs of icterus. Ears, nose, mouth and throat: There are moist mucous membranes and no oral lesions. Neck: The neck is supple, there is no tenderness or JVD. Cardiovascular: There is a regular rate and rhythm. No murmur, rub or gallop is appreciated. Respiratory: Lungs are clear to auscultation, respirations are non-labored, breath sounds are equal. No wheezes, stridor, rales, or rhonchi. Musculoskeletal: Normal ROM, no tenderness. Strength 5/5. Sensation intact. +2 femoral pulses, +1 DP pulses, weak/negligible DP pulses b/l. Feet are warm, 5 second capillary refill b/l. Neurological: A&O x 3. CN II-XII intact, There are no obvious motor or sensory deficits. Coordination appears grossly intact. Speech is normal. Skin: Skin is warm and dry and no rashes.1cm mcgrath to the posterior left heel. There is a large necrotic area of the left great toe MTP plantar surface 3x3cm. Odorous. Pallor of great toe with a necrotic 3iuu3qc lesion. No noted lesion of the right LE. Howeever similar pulse exam. Noted bruises on UE b/l. - Labs CBC & Chem 7: 11/13/18 06:59 11/13/18 06:59 Labs: Abnormal Lab Results - Last 24 Hours (Table) 11/12/18 11/12/18 11/13/18 Range/Units 16:57 21:20 06:36 RBC (3.80-5.40) m/uL Hgb (11.4-16.0) gm/dL Hct (34.0-46.0) % Chloride (98-107) mmol/L BUN (7-17) mg/dL POC Glucose (mg/dL) 181 H 179 H 112 H (75-99) mg/dL 11/13/18 11/13/18 11/13/18 Range/Units 06:59 06:59 11:36 RBC 3.05 L (3.80-5.40) m/uL Hgb 9.4 L (11.4-16.0) gm/dL Hct 29.3 L (34.0-46.0) % Chloride 110 H (98-107) mmol/L BUN 18 H (7-17) mg/dL POC Glucose (mg/dL) 103 H (75-99) mg/dL Microbiology - Last 24 Hours (Table) 11/07/18 21:28 Blood Culture - Preliminary Blood No Growth after 120 hours Assessment and Plan Plan: assessment and plan #1 gangrene of the left foot status post amputation #2 hypertension #3 hyperlipidemia #4 diabetes #5 chronic tobacco use Plan We will increase the dose of Catapres to a 3 times a day dose today, continue the rest of the patient's medications. DNP note has been reviewed, I agree with a documented findings and plan of care. Patient was seen and examined.
[2018-11-13 17:13] LABS: Glucose,Whole Blood 165 mg/dL (75-99)
[2018-11-13 20:59] LABS: Glucose,Whole Blood 207 mg/dL (75-99)
[2018-11-13] MEDS: INSULIN DETEMIR (LEVEMIR) 100 UNIT/ML SYR SQ SCH (22:54)
[2018-11-13] MEDS: ATORVASTATIN 40 MG TAB PO SCH (22:54)
[2018-11-13] MEDS: ESCITALOPRAM 20 MG TAB PO SCH (22:54)
--- NOTE | 2018-11-13 23:54 | P.PN ---
Subjective Progress Note Date: 11/13/18 58-year-old woman who presents to Hospital because of progressive ulceration to her right foot. Was being followed in the outpatient setting but despite some local care and some oral antibiotic therapy she's had developed an extensive area of dry gangrenous changes that is a putrid odor. She herself is not feeling very poorly this aware of the significant changes in her blood sugars have started to increase. She then developed a fever and was directed to hospital. She was seen by vascular surgery and plans are for angiography to help determine level of amputation. At this time she is anxious and feels poorly. Her 's and she has significant psychosocial issues. 11/13/2016 the patient has had her below the amputation of her right lega and is now having stability of her status. Her pain is well controlled. She is a denying difficulties of fever chills or rigors or sweats. Overall not feeling poorly. Objective - Vital Signs Vital signs: Vital Signs Temp 98.5 F 11/13/18 20:00 Pulse 52 L 11/13/18 20:00 Resp 18 11/13/18 20:00 BP 144/67 11/13/18 20:00 Pulse Ox 98 11/13/18 20:00 Intake & Output 11/13/18 11/13/18 11/14/18 06:59 18:59 06:59 Intake Total 1400 Output Total 5550 3400 1375 Balance -8030 1999 -1373 Weight 70.5 kg Intake: Oral 1400 Output: Urine 5550 3400 1375 Other: Voiding Method Indwelling Catheter Indwelling Catheter # Voids 3 - Exam 58-year-old woman who looks considerably older than her stated age HEENT: Anicteric conjunctiva are pink and moist nasal mucosa grossly intact without significant lesions, there is no thrush. Poor dental health Neck: The neck is supple without significant lymphadenopathy or thyromegaly. Lungs: Symmetrical air entry with wheezes that are scattered no bronchial sounds Heart: Irregular audible S1-S2 positive S4 no new murmur click or rub Abdomen: Obese, Positive bowel sounds soft and nontender without palpable masses or organomegaly. There was no guarding or rebound. Extremities: The upper extremities have excellent pulses they are symmetric, no significant petechiae or telangiectasia. No splinter hemorrhages were noted. the right below the knee amputation no ascending erythema is noted Neuro: Awake alert oriented to person place and time. There are no acute new gross focal sensory motor deficits. - Labs CBC & Chem 7: 11/13/18 06:59 11/13/18 06:59 Labs: Abnormal Lab Results - Last 24 Hours (Table) 11/13/18 11/13/18 11/13/18 Range/Units 06:36 06:59 06:59 RBC 3.05 L (3.80-5.40) m/uL Hgb 9.4 L (11.4-16.0) gm/dL Hct 29.3 L (34.0-46.0) % Chloride 110 H (98-107) mmol/L BUN 18 H (7-17) mg/dL POC Glucose (mg/dL) 112 H (75-99) mg/dL 11/13/18 11/13/18 11/13/18 Range/Units 11:36 16:50 20:58 RBC (3.80-5.40) m/uL Hgb (11.4-16.0) gm/dL Hct (34.0-46.0) % Chloride (98-107) mmol/L BUN (7-17) mg/dL POC Glucose (mg/dL) 103 H 165 H 207 H (75-99) mg/dL Microbiology - Last 24 Hours (Table) 11/07/18 21:28 Blood Culture - Final Blood No Growth after 144 hours Laboratory Results WBC 9.5 k/uL (3.8-10.6) 11/13/18 06:59 RBC 3.05 m/uL (3.80-5.40) L 11/13/18 06:59 Hgb 9.4 gm/dL (11.4-16.0) L 11/13/18 06:59 Hct 29.3 % (34.0-46.0) L 11/13/18 06:59 MCV 95.9 fL (80.0-100.0) 11/13/18 06:59 MCH 30.8 pg (25.0-35.0) 11/13/18 06:59 MCHC 32.1 g/dL (31.0-37.0) 11/13/18 06:59 RDW 14.0 % (11.5-15.5) 11/13/18 06:59 Plt Count 440 k/uL (150-450) 11/13/18 06:59 Neutrophils % 72 % 11/13/18 06:59 Lymphocytes % 18 % 11/13/18 06:59 Monocytes % 5 % 11/13/18 06:59 Eosinophils % 3 % 11/13/18 06:59 Basophils % 0 % 11/13/18 06:59 Neutrophils # 6.8 k/uL (1.3-7.7) 11/13/18 06:59 Lymphocytes # 1.7 k/uL (1.0-4.8) 11/13/18 06:59 Monocytes # 0.5 k/uL (0-1.0) 11/13/18 06:59 Eosinophils # 0.3 k/uL (0-0.7) 11/13/18 06:59 Basophils # 0.0 k/uL (0-0.2) 11/13/18 06:59 PT 10.5 sec (9.0-12.0) 11/02/18 12:15 INR 1.0 (<1.2) 11/02/18 12:15 APTT 23.7 sec (22.0-30.0) 11/02/18 12:15 Sodium 143 mmol/L (137-145) 11/13/18 06:59 Potassium 3.9 mmol/L (3.5-5.1) 11/13/18 06:59 Chloride 110 mmol/L (98-107) H 11/13/18 06:59 Carbon Dioxide 23 mmol/L (22-30) 11/13/18 06:59 Anion Gap 10 mmol/L 11/13/18 06:59 BUN 18 mg/dL (7-17) H 11/13/18 06:59 Creatinine 0.54 mg/dL (0.52-1.04) 11/13/18 06:59 Est GFR (CKD-EPI)AfAm >90 (>60 ml/min/1.73 sqM) 11/13/18 06:59 Est GFR (CKD-EPI)NonAf >90 (>60 ml/min/1.73 sqM) 11/13/18 06:59 Glucose 86 mg/dL (74-99) 11/13/18 06:59 POC Glucose (mg/dL) 207 mg/dL (75-99) H 11/13/18 20:58 POC Glu Creasing And Cutting [employer] Feeder ID Donna Silva 11/13/18 20:[address] Glu mg/dL 146 11/08/18 05:53 Hemoglobin A1c 6.7 % (4.0-6.0) H 11/08/18 05:53 Plasma Lactic Acid Erwin 2.0 mmol/L (0.7-2.0) 11/02/18 12:15 Calcium 9.2 mg/dL (8.4-10.2) 11/13/18 06:59 Total Bilirubin 0.9 mg/dL (0.2-1.3) 11/02/18 12:15 AST 17 U/L (14-36) 11/02/18 12:15 ALT 29 U/L (9-52) 11/02/18 12:15 Alkaline Phosphatase 129 U/L (38-126) H 11/02/18 12:15 Total Protein 6.0 g/dL (6.3-8.2) L 11/02/18 12:15 Albumin 3.5 g/dL (3.5-5.0) 11/02/18 12:15 Urine Color Yellow 11/02/18 16:00 Urine Appearance Clear (Clear) 11/02/18 16:00 Urine pH 6.5 (5.0-8.0) 11/02/18 16:00 Ur Specific [place] 1.012 (1.001-1.035) 11/02/18 16:00 Urine Protein Trace (Negative) H 11/02/18 16:00 Urine Glucose (UA) Negative (Negative) 11/02/18 16:00 Urine Ketones Negative (Negative) 11/02/18 16:00 Urine Blood Negative (Negative) 11/02/18 16:00 Urine Nitrite Negative (Negative) 11/02/18 16:00 Urine Bilirubin Negative (Negative) 11/02/18 16:00 Urine Urobilinogen <2.0 mg/dL (<2.0) 11/02/18 16:00 Ur Leukocyte Esterase Negative (Negative) 11/02/18 16:00 Vancomycin Trough 17.3 ug/mL 11/12/18 05:25 Blood Type B Positive 11/09/18 11:02 Blood Type Confirm B Positive 11/09/18 12:41 Blood Type Recheck CABO Indicated 11/09/18 11:02 Antibody Screen NEGATIVE 11/09/18 11:02 Crossmatch See Detail 11/09/18 11:02 Spec Expiration Date 11/12/2018 - 2302 11/09/18 11:02 Microbiology 11/07/18 21:28 Blood Blood Culture - Final No Growth after 144 hours 11/02/18 12:15 Blood Blood Culture - Final No Growth after 144 hours 11/02/18 15:30 Foot - Left Gram Stain - Final 11/02/18 15:30 Foot - Left Wound Culture - Final Escherichia coli 11/02/18 16:00 Urine,Clean Catch Urine Culture - Final Assessment and Plan (1) Gangrene of right foot Narrative/Plan: 58-year-old woman with a long-standing history of many medical troubles that includes her cardiomyopathy, peripheral vascular disease which is severe in diabetes mellitus type 2 poorly controlled as well as psychosocial difficulties with the of her , presents to Hospital with a dry gangrenous changes to herleft foot plantar surface. This is been followed in the outpatient clinic and is now markedly worsen. She's been seen by the vascular surgeon there is plans for angiography which will determine the level of amputation that is needed. She is instructed on the fact that she does have gangrene and this required some extensive debridement she will be having at least toe amputation potentially further depending on the findings of the angiography. Antibiotic therapy to Zosyn and vancomycin for now until we have further data gram-negative bacilli are being found. We will discontinue vancomycin soon. 11/13/2018 the patient is now status post the left below-knee amputation and is showing improvement at this time. Pain is well controlled. Antibiotic therapy as transitioned to oral cefuroxime to complete a week of therapy for resolution of any residual lymphangitic bacteria. Fortunately she doing relatively well. We'll going to rehab soon. We discuss some modalities for when she gets to home such as having the left side of her bed against a wall or pillowed so she gets up in the middle the night she does not axillae stepout into the residual left leg and then fall. Current Visit: Yes Status: Acute Code(s): I96 - GANGRENE, NOT ELSEWHERE CLASSIFIED SNOMED Code(s): 59610855625904112 (2) Diabetes mellitus type 2, uncontrolled, with complications Current Visit: Yes Status: Acute Code(s): E11.8 - TYPE 2 DIABETES MELLITUS WITH UNSPECIFIED COMPLICATIONS; E11.65 - TYPE 2 DIABETES MELLITUS WITH HYPERGLY CEMIA SNOMED Code(s): 14504019
[2018-11-14 06:01] LABS: Glucose,Whole Blood 61 mg/dL (75-99)
[2018-11-14 06:21] LABS: Glucose,Whole Blood 76 mg/dL (75-99)
[2018-11-14 06:22] LABS: Basophils # (A) 0.1 k/uL (0-0.2); Basophils % (A) 1 %; Eosinophils # (A) 0.3 k/uL (0-0.7); Eosinophils % (A) 3 %; HCT 29.9 % (34.0-46.0); HGB 9.6 gm/dL (11.4-16.0); Lymphocytes % (A) 27 %; MCH 30.7 pg (25.0-35.0); MCHC 32.2 g/dL (31.0-37.0); MCV 95.5 fL (80.0-100.0); Mean Platelet Volume 7.9; Monocytes # (A) 0.6 k/uL (0-1.0); Monocytes % (A) 6 %; Neutrophils # (A) 6.9 k/uL (1.3-7.7); Neutrophils % (A) 63 %; Platelet Count 474 k/uL (150-450); RBC 3.13 m/uL (3.80-5.40); RDW 14.1 % (11.5-15.5); WBC 11.1 k/uL (3.8-10.6)
[2018-11-14 06:28] VITALS: RESP 16
[2018-11-14] MEDS: SODIUM CHLORIDE 0.9% 1,000 ML IV SCH (06:30)
[2018-11-14 06:33] LABS: African American GFR (CKD) >90 (>60 ml/min/1.73 sqM); Anion Gap 7 mmol/L; Blood Urea Nitrogen 22 mg/dL (7-17); Calcium 9.3 mg/dL (8.4-10.2); Carbon Dioxide 25 mmol/L (22-30); Chloride 109 mmol/L (98-107); Glucose 52 mg/dL (74-99); Sodium 141 mmol/L (137-145)
[2018-11-14] MEDS: PANTOPRAZOLE 40 MG TABLET PO SCH (06:50)
[2018-11-14] MEDS: METFORMIN 500 MG PO SCH (06:50)
[2018-11-14] MEDS: INSULIN ASPART (NovoLOG) 100 UNIT/ML VIAL SQ SCH ×2 (08:36→12:07)
[2018-11-14 08:43] VITALS: PULSE 50
[2018-11-14] MEDS: cloNIDine HCL 0.1 MG TAB PO SCH (08:45)
[2018-11-14] MEDS: ALLOPURINOL 300 MG TAB PO SCH (08:45)
[2018-11-14] MEDS: ATENOLOL 25 MG TAB PO SCH (08:45)
[2018-11-14] MEDS: POTASSIUM CHLORIDE ER 20 MEQ TAB.ER PO SCH (08:46)
[2018-11-14] MEDS: HYDROCHLOROTHIAZIDE 25 MG TAB PO SCH (08:46)
[2018-11-14] MEDS: IBUPROFEN 800 MG TAB PO SCH ×2 (08:46→12:06)
[2018-11-14] MEDS: GABAPENTIN 100 MG CAP PO SCH (08:46)
[2018-11-14] MEDS: LISINOPRIL 20 MG TAB PO SCH (08:46)
[2018-11-14] MEDS: HYDROcodone/APAP 5-325MG 1 EACH TAB PO PRN (08:47)
[2018-11-14] MEDS: COLCHICINE 0.6 MG EACH PO SCH (08:47)
[2018-11-14] MEDS: HEPARIN SODIUM,PORCINE 5,000 UNIT/ML 1 ML VIAL SQ SCH (08:57)
[2018-11-14] MEDS ORDERED: amLODIPine 5 MG TAB PO SCH ×2 (09:00)
--- NOTE | 2018-11-14 11:47 | P.PN ---
Subjective Progress Note Date: 11/14/18 this is a 58-year-old female with history of severe peripheral vascular disease, diabetes, hypertension, hyperlipidemia, who underwent amputation of her gangrenous foot on the left side. Cardiology consultation was requested because of uncontrolled hypertension. Patient feels well overall this morning, no overt complaints.blood pressure 150/70 with a heart rate in the 50s, 96% on room air. We will increase the Catapres to a 3 times a day dose today. 11/14/2018 Patient seen and examined this morning, blood pressure under much better control with the increased dose of Catapres. Objective - Vital Signs Vital signs: Vital Signs Temp 98.3 F 11/14/18 08:00 Pulse 50 L 11/14/18 08:00 Resp 16 11/14/18 08:00 BP 137/63 11/14/18 08:00 Pulse Ox 96 11/14/18 08:00 Intake & Output 11/13/18 11/14/18 11/14/18 18:59 06:59 18:59 Intake Total 1400 240 Output Total 3400 2650 Balance -1999 -2650 240 Weight 70.5 kg Intake: Oral 1400 240 Output: Urine 3400 2650 Other: Voiding Method Indwelling Catheter - Exam General: The patient is awake and alert, in no distress, and does not appear acutely ill. Eye: Pupils are equal, round and reactive to light, extra-ocular movements are intact. No nystagmus. There is normal conjunctiva bilaterally. No signs of icterus. Ears, nose, mouth and throat: There are moist mucous membranes and no oral lesions. Neck: The neck is supple, there is no tenderness or JVD. Cardiovascular: There is a regular rate and rhythm. No murmur, rub or gallop is appreciated. Respiratory: Lungs are clear to auscultation, respirations are non-labored, breath sounds are equal. No wheezes, stridor, rales, or rhonchi. Musculoskeletal: Normal ROM, no tenderness. Strength 5/5. Sensation intact. +2 femoral pulses, +1 DP pulses, weak/negligible DP pulses b/l. Feet are warm, 5 second capillary refill b/l. Neurological: A&O x 3. CN II-XII intact, There are no obvious motor or sensory deficits. Coordination appears grossly intact. Speech is normal. Skin: Skin is warm and dry and no rashes.1cm pala to the posterior left heel. There is a large necrotic area of the left great toe MTP plantar surface 3x3cm. Odorous. Pallor of great toe with a necrotic 3nnv0wr lesion. No noted lesion of the right LE. Howeever similar pulse exam. Noted bruises on UE b/l. - Labs CBC & Chem 7: 11/14/18 05:48 11/14/18 05:48 Labs: Abnormal Lab Results - Last 24 Hours (Table) 11/13/18 11/13/18 11/13/18 Range/Units 11:36 16:50 20:58 WBC (3.8-10.6) k/uL RBC (3.80-5.40) m/uL Hgb (11.4-16.0) gm/dL Hct (34.0-46.0) % Plt Count (150-450) k/uL Chloride (98-107) mmol/L BUN (7-17) mg/dL Glucose (74-99) mg/dL POC Glucose (mg/dL) 103 H 165 H 207 H (75-99) mg/dL 11/14/18 11/14/18 11/14/18 Range/Units 05:48 05:48 06:00 WBC 11.1 H (3.8-10.6) k/uL RBC 3.13 L (3.80-5.40) m/uL Hgb 9.6 L (11.4-16.0) gm/dL Hct 29.9 L (34.0-46.0) % Plt Count 474 H (150-450) k/uL Chloride 109 H (98-107) mmol/L BUN 22 H (7-17) mg/dL Glucose 52 L (74-99) mg/dL POC Glucose (mg/dL) 61 L (75-99) mg/dL Microbiology - Last 24 Hours (Table) 11/07/18 21:28 Blood Culture - Final Blood No Growth after 144 hours Assessment and Plan Plan: assessment and plan #1 gangrene of the left foot status post amputation #2 hypertension #3 hyperlipidemia #4 diabetes #5 chronic tobacco use Plan from cardiology's perspective, we'll continue this patient on her current medications. Continue to monitor blood pressure. DNP note has been reviewed, I agree with a documented findings and plan of care. Patient was seen and examined.
[2018-11-14 11:49] LABS: Glucose,Whole Blood 153 mg/dL (75-99)
[2018-11-14 12:22] VITALS: BP 104/55; TEMP 98
[2018-11-14 14:30] VITALS: BMI 28.4
--- NOTE | 2018-11-14 22:48 | P.PN ---
Subjective Progress Note Date: 11/14/18 58-year-old woman who presents to Hospital because of progressive ulceration to her right foot. Was being followed in the outpatient setting but despite some local care and some oral antibiotic therapy she's had developed an extensive area of dry gangrenous changes that is a putrid odor. She herself is not feeling very poorly this aware of the significant changes in her blood sugars have started to increase. She then developed a fever and was directed to hospital. She was seen by vascular surgery and plans are for angiography to help determine level of amputation. At this time she is anxious and feels poorly. Her 's and she has significant psychosocial issues. 11/13/2018 the patient has had her below the amputation of her right leg and is now having stability of her status. Her pain is well controlled. She is a denying difficulties of fever chills or rigors or sweats. Overall not feeling poorly. 11/14/2018 patient is improving status post her amputation. She will be tr ansitioned to extended care facility today for her rehab. She relates that she's been instructed that after 6 weeks or so she then can start the process for prosthesis fitting. Goal will be to have her have independence. Antibiotic therapy as well as cefuroxime at the care facility. Orders written. Objective - Vital Signs Vital signs: Vital Signs Temp 98 F 11/14/18 12:00 Pulse 50 L 11/14/18 12:00 Resp 16 11/14/18 12:00 BP 104/55 11/14/18 12:00 Pulse Ox 96 11/14/18 12:00 Intake & Output 11/14/18 11/14/18 11/15/18 06:59 18:59 06:59 Intake Total 480 Output Total 2650 Balance -2650 480 Weight 70.5 kg 70.5 kg Intake: Oral 480 Output: Urine 2650 Other: Voiding Method Indwelling Catheter - Labs CBC & Chem 7: 11/14/18 05:48 11/14/18 05:48 Labs: Abnormal Lab Results - Last 24 Hours (Table) 11/14/18 11/14/18 11/14/18 Range/Units 05:48 05:48 06:00 WBC 11.1 H (3.8-10.6) k/uL RBC 3.13 L (3.80-5.40) m/uL Hgb 9.6 L (11.4-16.0) gm/dL Hct 29.9 L (34.0-46.0) % Plt Count 474 H (150-450) k/uL Chloride 109 H (98-107) mmol/L BUN 22 H (7-17) mg/dL Glucose 52 L (74-99) mg/dL POC Glucose (mg/dL) 61 L (75-99) mg/dL 11/14/18 Range/Units 11:44 WBC (3.8-10.6) k/uL RBC (3.80-5.40) m/uL Hgb (11.4-16.0) gm/dL Hct (34.0-46.0) % Plt Count (150-450) k/uL Chloride (98-107) mmol/L BUN (7-17) mg/dL Glucose (74-99) mg/dL POC Glucose (mg/dL) 153 H (75-99) mg/dL Microbiology - Last 24 Hours (Table) 11/07/18 21:28 Blood Culture - Final Blood No Growth after 144 hours Assessment and Plan (1) Gangrene of right foot Status: Acute Code(s): I96 - GANGRENE, NOT ELSEWHERE CLASSIFIED SNOMED Code(s): 85598753012235492 (2) Diabetes mellitus type 2, uncontrolled, with complications Status: Acute Code(s): E11.8 - TYPE 2 DIABETES MELLITUS WITH UNSPECIFIED COMPLICATIONS; E11.65 - TYPE 2 DIABETES MELLITUS WITH HYPERGLYCEMIA SNOMED Code(s): 74490529
--- NOTE | 2018-11-15 11:09 | P.PN ---
Subjective Progress Note Date: 11/13/18 This is a 58-year-old female admitted with diabetic foot, acute left foot gangrene, status post left BKA. Maintained on IV antibiotics as per ID. afebrile, normal WBC. Hypertensive, Catapres increased. Maintaining O2 sats in the mid 90s on room air. Denies chest pain, palpitations or shortness of breath . Significant clinical improvement. Patient is being discharged to subacute rehab.,Pending authorization. Objective - Vital Signs Vital signs: Vital Signs Temp 98.8 F 11/13/18 11:34 Pulse 52 L 11/13/18 11:34 Resp 16 11/13/18 11:34 BP 150/70 11/13/18 11:34 Pulse Ox 96 11/13/18 11:34 Intake & Output 11/12/18 11/13/18 11/13/18 18:59 06:59 18:59 Intake Total 1360 920 Output Total 1900 5550 3400 Balance -249 -4528 -5140 Weight 70.5 kg Intake: IV 400 Sodium Chloride 0.9% 1, 150 000 ml @ 75 mls/hr IV . [id number] EUGENIO Rx#:[id number] Vancomycin 1,250 mg In 250 Sodium Chloride 0.9% 250 ml @ 125 mls/hr IVPB Q12H EUGENIO Rx#:[id number] Oral 960 920 Output: Urine 1900 5550 3400 Other: Voiding Method Indwelling Catheter # Voids 3 - Exam PHYSICAL EXAM: VITAL SIGNS: As above GENERAL: Sitting up in bed, no acute distress HEENT: Conjunctivae normal. eyes normal. Oral mucosa moist NECK: No JVD. No thyroid enlargement. No LNs CARDIOVASCULAR: S1, S2 regular.. No murmur RESPIRATION: Breath sounds diminished in the bases. No rhonchi or crackles. No bronchial breathing. ABDOMEN: Soft, nontender . No guarding. no masses palpable.Bowel sounds heard. LEGS: Left BKA, minimal edema. J Carlos wrap clean dry and intact. PSYCHIATRY: Alert and oriented X3, mood and affect normal. NERVOUS SYSTEM: Cranial N 2-12 grossly normal. Moves all 4 limbs. Diffuse weakness No focal deficits. Strength and sensation grossly intact.. Lymphatic system. No LN neck axilla or groin. Microbiology 11/07/18 21:28 Blood Blood Culture - Final No Growth after 144 hours 11/02/18 12:15 Blood Blood Culture - Final No Growth after 144 hours 11/02/18 15:30 Foot - Left Gram Stain - Final 11/02/18 15:30 Foot - Left Wound Culture - Final Escherichia coli 11/02/18 16:00 Urine,Clean Catch Urine Culture - Final - Labs CBC & Chem 7: 11/14/18 05:48 11/14/18 05:48 Labs: Abnormal Lab Results - Last 24 Hours (Table) 11/12/18 11/12/18 11/13/18 Range/Units 16:57 21:20 06:36 RBC (3.80-5.40) m/uL Hgb (11.4-16.0) gm/dL Hct (34.0-46.0) % Chloride (98-107) mmol/L BUN (7-17) mg/dL POC Glucose (mg/dL) 181 H 179 H 112 H (75-99) mg/dL 11/13/18 11/13/18 11/13/18 Range/Units 06:59 06:59 11:36 RBC 3.05 L (3.80-5.40) m/uL Hgb 9.4 L (11.4-16.0) gm/dL Hct 29.3 L (34.0-46.0) % Chloride 110 H (98-107) mmol/L BUN 18 H (7-17) mg/dL POC Glucose (mg/dL) 103 H (75-99) mg/dL Microbiology - Last 24 Hours (Table) 11/07/18 21:28 Blood Culture - Preliminary Blood No Growth after 120 hours Assessment and Plan Assessment: -Acute left diabetic foot with gangrene, status post left BKA -Wound culture reporting E. coli -Diabetes mellitus -Severe peripheral vascular disease disease with multiple stenosis involving the left superficial femoral artery. -Hypertension -Hyperlipidemia -Ongoing nicotine dependence Plan: Continue current medication regime ,monitoring and symptomatic treatment. Cleared by both vascular surgery, cardiology for discharge. Wound care as per vascular surgery/ID. Antibiotics as per ID. Maintain tight blood sugar control. Discharge planning in progress for subacute rehab pending authorization. Further recommendations to follow. The impression and plan of care has been dictated as directed. : I performed a history and examination of this patient, discussed the same with the dictator. I agree with the dictator's note ,documented as a scribe. Any additional findings or plans will be noted.
== END 2018-11-14 17:24 | DRG 854 ==
LOC: EC 10:45 → 4MS4W 12:38 → 3SCARD 11-04 20:40
PROVIDERS: ADMIT Family Medicine; ATTEND Family Medicine
PROC: B41G1ZZ Fluoroscopy of Left Lower Extremity Arteries using Low Osmolar Contrast (ICD-10-PCS; 2018-11-05 08:55)
PROC: 0Y6J0Z3 Detachment at Left Lower Leg, Low, Open Approach (ICD-10-PCS; principal; 2018-11-10 13:00)
DX: A41.51 Sepsis due to Escherichia coli [E. coli] (principal); E11.52 Type 2 diabetes mellitus with diabetic peripheral angiopathy with gangrene; I70.262 Atherosclerosis of native arteries of extremities with gangrene, left leg; H46.9 Unspecified optic neuritis; I42.9 Cardiomyopathy, unspecified; L03.116 Cellulitis of left lower limb; N17.9 Acute kidney failure, unspecified; E11.65 Type 2 diabetes mellitus with hyperglycemia; L97.529 Non-pressure chronic ulcer of other part of left foot with unspecified severity; Z79.4 Long term (current) use of insulin; D63.8 Anemia in other chronic diseases classified elsewhere; E11.319 Type 2 diabetes mellitus with unspecified diabetic retinopathy without macular edema; E11.40 Type 2 diabetes mellitus with diabetic neuropathy, unspecified; E11.621 Type 2 diabetes mellitus with foot ulcer; E78.00 Pure hypercholesterolemia, unspecified; E78.5 Hyperlipidemia, unspecified; E86.0 Dehydration; E87.6 Hypokalemia; F17.210 Nicotine dependence, cigarettes, uncomplicated; F41.9 Anxiety disorder, unspecified; Z86.73 Personal history of transient ischemic attack (TIA), and cerebral infarction without residual deficits; I08.1 Rheumatic disorders of both mitral and tricuspid valves; I10 Essential (primary) hypertension; I27.20 Pulmonary hypertension, unspecified; M1A.9XX0 Chronic gout, unspecified, without tophus (tophi); S90.822A Blister (nonthermal), left foot, initial encounter; Z79.899 Other long term (current) drug therapy; Z82.3 Family history of stroke; Z82.49 Family history of ischemic heart disease and other diseases of the circulatory system; Z90.710 Acquired absence of both cervix and uterus; Z88.2 Allergy status to sulfonamides
CPT/HCPCS: 36200; 36415; 75710; 76937; 80048; 80053; 80202; 81003; 83036; 83605; 85025; 85610; 85730; 86850; 86900; 86901; 86920; 87040; 87070; 87077; 87086; 87186; 87205; 88307; 88311; 88312; 93306; 96365; 96366; 96368; 99284

== ENCOUNTER 2019-02-28 11:20 | Day surgery (SDC) | payer OTHER ==
[2019-02-27 09:01] VITALS: BMI 28.0
[~2019-02-28 11:20] MED LIST: ALPRAZolam 0.25 MG TAB PO PRN; ASPIRIN 325 MG TAB PO STA; SODIUM CHLORIDE 0.9% (PF) 10 ML VIAL ONE; SODIUM CHLORIDE 0.9% 1,000 ML in EMPTY BAG 1 BAG IV ONE; niCARdipine 25 MG/10 ML VIAL ONE
[2019-02-28 11:54] LABS: Glucose,Whole Blood 107 mg/dL (75-99)
[2019-02-28] MEDS ORDERED: SODIUM CHLORIDE 0.9% 500 ML 500 ML with niCARdipine 6.25 MG, NITROGLYCERIN-D5W PMX 0.05... IV ONE ×4 (12:00)
[2019-02-28] MEDS ORDERED: SODIUM CHLORIDE 0.9% 1,000 ML IV ONE (12:20)
[2019-02-28] MEDS ORDERED: MIDAZOLAM 2 MG/2 ML VIAL IVP ONE ×2 (12:28→13:02)
[2019-02-28] MEDS ORDERED: LIDOCAINE 1% INJ 10MG/ML (20 ML MDV) SQ ONE (12:28)
[2019-02-28] MEDS ORDERED: HEPARIN SODIUM 1,000 UN/ML (10ML VL) IV ONE (12:32)
[2019-02-28] MEDS ORDERED: fentaNYL (PF) 50 MCG/ML 2 ML AMP IVP ONE (13:37)
[2019-02-28] MEDS ORDERED: HYDROmorphone 1 MG/ML 1 ML SYRINGE IVP ONE (14:28)
[2019-02-28] MEDS ORDERED: IOPAMIDOL-300 100ML BTL INJ ONE (14:39)
[2019-02-28] MEDS ORDERED: NITROGLYCERIN 1000MCG/10ML SYRINGE INTRAARTER ONE (15:16)
[2019-02-28] MEDS ORDERED: traMADol 50 MG TAB PO PRN (15:36)
[2019-02-28] MEDS ORDERED: SODIUM CHLORIDE 0.9% 1,000 ML IV SCH (15:45)
[2019-02-28] MEDS ORDERED: fentaNYL (PF) 50 MCG/ML 2 ML AMP IVP PRN (16:01)
--- NOTE | 2019-02-28 16:01 | P.PCN ---
Date of Procedure: 02/28/19 Operative Findings: PERCUTANEOUS PERIPHERAL INTERVENTION Performing physician: Jamir Saez M.D. Procedure performed: 1. Right lower extremity angiogram 2. Successful crossing chronic total occlusion of the right SFA 3. Intravascular ultrasound of the right popliteal and right SFA 4. An atherectomy of the right popliteal and right SFA using the orbital atherectomy device from [employer], using 1.5 mm kim 5. Successful balloon angioplasty of the right popliteal and right SFA using 5 mm by 250 mm In-Pact drug-coated balloon with an excellent angiographic results 6. Successful stenting of the proximal right SFA using 7.0 x 140 mm Zilver PTX drug-coated stent with an excellent angiographic results Indication: This is a very pleasant 58-year-old female patient with peripheral arterial disease, diabetes, hypertension, dyslipidemia, and significant history of smoking, who was struggling with critical limb ischemia of the right foot. She underwent in the past left below the knee amputation. She underwent a peripheral angiogram recently by Dr. Sahu and was found to have occluded SFA as well as severe disease involving the right popliteal. Beside that she was found to have severe below the knee disease with only one vessel runoff with anterior tibial artery. Because of that balloon angioplasty of the right SFA was advised. Complication: None Level of sedation: Moderate with sedation may of 185 minutes Approach: Left common femoral artery Right anterior TPL artery Procedure description: After obtaining an informed consent the patient was brought to the cardiac cath lab nurse. The left common femoral artery was cannulated using micropuncture technique, the micropuncture wire passed easily then I placed an 11 cm 6-Marshallese sheath in the left common femoral artery. At that point anticoagulation was initiated using heparin were the patient was given 5000 use of heparin at the beginning of the procedure with continuous ACT monitoring throughout the procedure. I did selective the right profunda using an 035 glide advantage wire with a backup support of 5-Marshallese rim catheter. Subsequently I did exchange my 11 cm 6-Marshallese sheath into 70 cm 6-Marshallese IV sheath using no 35 glide advantage wire. At that point I did right lower extremity angiogram which revealed 1 vessel r unoff below the knee with anterior TPL as well as severe disease involving the right popliteal and right SFA which was occluded on long segment extends from the ostium all the way to the Mitul canal. I attempted crossing the chronic total occlusion of the right SFA using 018 Gold Glidewire, a 18 Astato wire, and then 035 stiff Glidewire, and in spite of that I indicated in the subintimal space. Because of that I decided to cross the chronic total occlusion in retrograde technique from and pedal approach. At that point I did access the right anterior tibial artery using ultrasound guidance and IV placed a 5/6 Slender sheath in the right anterior tibial artery. Subsequently continuous infusion off heparin, nitroglycerin, and verapamil, was initiated throughout the pedal sheath. I was able to cross the chronic total occlusion in retrograde technique from the pedal sheath using an 018 Gold Glidewire with a backup support of 018 CXR I catheter. I did advanced the catheter all the way to the right iliac artery were injected contrast in the right iliac artery through the sheath to prove that I was in the true lumen. After that I did place an 014 Viper wire through the 018 CXR catheter preparing for the fascial atherectomy using the CSI device. I did atherectomy of the right popliteal and right SFA using 1.5 mm kim. I did that under local, medium, and high-speed. After that I did balloon angioplasty using 5 mm balloon. The following angiogram showed adequate angiographic results in the right popliteal and distal and mid right SFA but inadequate angiographic results in the ostium and proximal right SFA. At that point I did drug-coated balloon angioplasty of the right popliteal and right SFA using 5 mm balloon which was inflated under 10 katie for 30 minutes. The following angiogram showed good angiographic results. For the ostial and proximal right SFA I Did Pl., Zilver PTX drug-coated stent which was 7 x 140 mm where the stent was positioned under fluoroscopy guidance and deployed under fluoroscopy guidance and then I post that the stent using 6 mm balloon. The following angiogram showed good angiographic results and the procedure was completed without any complications. After that I did exchange my 70 cm 6-Marshallese sheath into an 11 cm 6-Marshallese IV sheath. I did finally selective left femoral artery angiogram. The procedure was completed without any complications Postprocedure management: 1. Dual antiplatelet therapy 2. Risk factors modification 3. Follow-up with the patient
[2019-02-28] MEDS ORDERED: CLOPIDOGREL 75 MG TAB PO ONE (16:12)
[2019-02-28 16:54] LABS: Glucose,Whole Blood 93 mg/dL (75-99)
[2019-02-28] MEDS: GABAPENTIN 100 MG CAP PO SCH ×2 (18:40→21:52)
[2019-02-28] MEDS ORDERED: HYDROmorphone 0.5 MG/0.5 ML SYRINGE IVP PRN (18:46)
[2019-02-28] MEDS ORDERED: HYDROmorphone 1 MG/ML 1 ML SYRINGE ONE (18:48)
[2019-02-28] MEDS: POTASSIUM CHLORIDE ER 20 MEQ TAB.ER PO SCH (20:16)
[2019-02-28] MEDS: ATENOLOL 25 MG TAB PO SCH (20:16)
[2019-02-28] MEDS: HYDROCHLOROTHIAZIDE 25 MG TAB PO SCH (20:16)
[2019-02-28] MEDS ORDERED: INSULIN DETEMIR (LEVEMIR) 100 UNIT/ML SYR SQ SCH (21:00)
[2019-02-28] MEDS ORDERED: ATORVASTATIN 20 MG TAB PO SCH (21:00)
[2019-02-28] MEDS ORDERED: ESCITALOPRAM 20 MG TAB PO SCH (21:00)
[2019-02-28 21:10] LABS: Glucose,Whole Blood 143 mg/dL (75-99)
[2019-03-01 00:22] VITALS: RESP 18
[2019-03-01 06:23] LABS: Glucose,Whole Blood 80 mg/dL (75-99)
[2019-03-01 06:42] LABS: Basophils % (A) 0 %; Eosinophils # (A) 0.2 k/uL (0-0.7); Eosinophils % (A) 3 %; HCT 33.3 % (34.0-46.0); Lymphocytes # (A) 1.7 k/uL (1.0-4.8); Lymphocytes % (A) 20 %; MCH 29.6 pg (25.0-35.0); MCV 89.8 fL (80.0-100.0); Mean Platelet Volume 7.4; Monocytes # (A) 0.5 k/uL (0-1.0); Monocytes % (A) 6 %; Neutrophils % (A) 70 %; Platelet Count 198 k/uL (150-450); RBC 3.71 m/uL (3.80-5.40); RDW 14.7 % (11.5-15.5); WBC 8.6 k/uL (3.8-10.6)
[2019-03-01 06:53] LABS: African American GFR (CKD) >90 (>60 ml/min/1.73 sqM); Anion Gap 7 mmol/L; Blood Urea Nitrogen 20 mg/dL (7-17); Calcium 9.5 mg/dL (8.4-10.2); Carbon Dioxide 24 mmol/L (22-30); Chloride 108 mmol/L (98-107); Glucose 69 mg/dL (74-99); Potassium 3.7 mmol/L (3.5-5.1); Sodium 139 mmol/L (137-145)
[2019-03-01] MEDS: ATENOLOL 25 MG TAB PO SCH (08:16)
[2019-03-01] MEDS: HYDROCHLOROTHIAZIDE 25 MG TAB PO SCH (08:16)
[2019-03-01] MEDS: GABAPENTIN 100 MG CAP PO SCH (08:16)
[2019-03-01] MEDS: POTASSIUM CHLORIDE ER 20 MEQ TAB.ER PO SCH (08:17)
--- NOTE | 2019-03-01 08:19 | P.DS ---
Providers Date of admission: February 282018 Attending physician: Jamir Saez Primary care physician: [facility] Course: This is a pleasant 58-year-old female patient who was diagnosed recently was a critical limb ischemia of the right foot. She underwent an angiogram recently and that revealed occluded right SFA on long segment. Yesterday she underwent successful recanalizing chronic total occlusion of the right SFA with an excellent angiographic results and without any complication from right pedal approach and left groin approach. I'll follow-up with her today, she is asymptomatic. The left groin does have small hematoma. The right foot is warm with diminished right dorsalis pedis pulse. The patient is going to be discharged home and I will follow-up with the patient next week in the office. Plan - Discharge Summary Discharge Rx Participant: No New Discharge Prescriptions: New Clopidogrel Bisulfate [Plavix] 75 mg PO DAILY #90 tab Continue metFORMIN HCL ER [Glucophage Xr] 500 mg PO BID Potassium Chloride [Klor-Con Sprinkle] 20 meq PO BID Insulin Glargine,Hum.rec.anlog [Lantus Solostar] 25 unit SQ HS Colchicine [Colcrys] 0.6 mg PO DAILY Allopurinol [Zyloprim] 300 mg PO DAILY Escitalopram [Lexapro] 20 mg PO HS Atenolol [Tenormin] 25 mg PO BID tab Gabapentin [Neurontin] 200 mg PO TID #9 capsule traMADol HCL [Ultram] 50 mg PO Q8H PRN PRN Reason: Pain Hydrochlorothiazide [Hydrodiuril] 25 mg PO BID Enalapril [Vasotec] 20 mg PO DAILY Aspirin 81 mg PO DAILY Atorvastatin [Lipitor] 20 mg PO HS Discharge Medication List Insulin Glargine,Hum.rec.anlog [Lantus Solostar] 25 unit SQ HS 03/29/17 [History] Potassium Chloride [Klor-Con Sprinkle] 20 meq PO BID 03/29/17 [History] metFORMIN HCL ER [Glucophage Xr] 500 mg PO BID 03/29/17 [History] Allopurinol [Zyloprim] 300 mg PO DAILY 10/21/17 [History] Colchicine [Colcrys] 0.6 mg PO DAILY 10/21/17 [History] Escitalopram [Lexapro] 20 mg PO HS 11/02/18 [History] Atenolol [Tenormin] 25 mg PO BID tab 11/13/18 [Rx] Gabapentin [Neurontin] 200 mg PO TID #9 capsule 11/13/18 [Rx] Aspirin 81 mg PO DAILY 02/27/19 [History] Atorvastatin [Lipitor] 20 mg PO HS 02/27/19 [History] Enalapril [Vasotec] 20 mg PO DAILY 02/27/19 [History] Hydrochlorothiazide [Hydrodiuril] 25 mg PO BID 02/27/19 [History] traMADol HCL [Ultram] 50 mg PO Q8H PRN 02/27/19 [History] Clopidogrel Bisulfate [Plavix] 75 mg PO DAILY #90 tab 02/28/19 [Rx] Follow up Appointment(s)/Referral(s): Jamir Saez MD [STAFF PHYSICIAN] - 03/06/19 1:15 pm (Tuesday) Patient Instructions/Handouts: Peripheral Vascular Angioplasty (DC)
[2019-03-01] MEDS ORDERED: LISINOPRIL 20 MG TAB PO SCH (09:00)
[2019-03-01] MEDS ORDERED: ASPIRIN 81 MG PO SCH (09:00)
[2019-03-01] MEDS ORDERED: ALLOPURINOL 300 MG TAB PO SCH (09:00)
[2019-03-01] MEDS ORDERED: CLOPIDOGREL 75 MG TAB PO SCH (09:00)
[2019-03-01] MEDS ORDERED: COLCHICINE 0.6 MG EACH PO SCH (09:00)
[2019-03-01 09:07] VITALS: BP 130/74; PULSE 64; TEMP 98.6
--- NOTE | 2019-03-05 12:40 | IR ---
Fluoroscopy HISTORY: Pain in right leg 69 minutes fluoroscopy time supplied to the referring clinician. 788 intraoperative C-arm images doc ument the procedure. See dictated report from cardiology.
== END 2019-03-01 10:20 | disposition home or self-care (01) ==
LOC: CATHCVL 11:20 → 3SCARD 17:18 → CATHCVL 03-01 10:20
PROVIDERS: ATTEND Internal Medicine Interventional Cardiology
DX: I70.235 Atherosclerosis of native arteries of right leg with ulceration of other part of foot (principal); L97.519 Non-pressure chronic ulcer of other part of right foot with unspecified severity; I70.92 Chronic total occlusion of artery of the extremities; E11.51 Type 2 diabetes mellitus with diabetic peripheral angiopathy without gangrene; Z79.4 Long term (current) use of insulin; I10 Essential (primary) hypertension; E78.5 Hyperlipidemia, unspecified; F17.200 Nicotine dependence, unspecified, uncomplicated; Z89.512 Acquired absence of left leg below knee; Z82.49 Family history of ischemic heart disease and other diseases of the circulatory system; Z79.82 Long term (current) use of aspirin; Z79.899 Other long term (current) drug therapy; Z88.2 Allergy status to sulfonamides
CPT/HCPCS: 37227; 37252; 80048; 85025; C1894 ×5; C1769 ×9; C1714; C1725 ×2; C1753; C1874; C2623; J2250; J1644 ×2; J2001; J3010; J1170 ×2; Q9967

== ENCOUNTER 2019-04-25 12:41 | Emergency (ER) | payer OTHER ==
--- NOTE | 2019-04-25 13:19 | ED ---
Extremity Problem HPI - General Chief complaint: Extremity Problem,Nontraumatic Stated complaint: Leg pain/swelling Time Seen by Provider: 04/25/19 13:19 Source: patient, family Mode of arrival: wheelchair Limitations: no limitations - History of Present Illness Initial comments: patient is a 58-year-old female with type 2 diabetes and peripheral vascular disease presenting to the emergency department with a chief complaint of right leg swelling. Patient is coming from physician office was requesting patient has Doppler ultrasound performed to rule out a DVT. About 2 months ago patient had stenting on the right lower extremity due to peripheral vascular disease. Patient reports that has been improved blood flow since the procedure. She reports there has not been swelling like this although she does have some mild baseline swelling in the right lower extremity. She states this started since yesterday with increased pain and swelling. She denies any changes to the skin. She also has a diabetic ulcer on the heel. She sees a nurse at home does the bandaging. Denies any night sweats fevers or chills. Denies cough shortness of breath or chest pain. - Related Data Home Medications Medication Instructions Recorded Confirmed Insulin Glargine,Hum.rec.anlog 25 unit SQ HS 03/29/17 04/25/19 [Lantus Solostar] Potassium Chloride [Klor-Con 10 meq PO BID 03/29/17 04/25/19 Sprinkle] Allopurinol [Zyloprim] 300 mg PO DAILY 10/21/17 04/25/19 Colchicine [Colcrys] 0.6 mg PO DAILY 10/21/17 04/25/19 Enalapril [Vasotec] 20 mg PO BID 02/27/19 04/25/19 Hydrochlorothiazide [Hydrodiuril] 25 mg PO BID 02/27/19 04/25/19 traMADol HCL [Ultram] 50 mg PO Q8H PRN 02/27/19 04/25/19 Atenolol [Tenormin] 50 mg PO BID 04/25/19 04/25/19 Atorvastatin [Lipitor] 20 mg PO HS 04/25/19 04/25/19 Citalopram Hydrobromide [CeleXA] 40 mg PO DAILY 04/25/19 04/25/19 Collagenase [Santyl] 1 applic TOPICAL DAILY PRN 04/25/19 04/25/19 metFORMIN HCL [Glucophage] 500 mg PO BID 04/25/19 04/25/19 Previous Rx's Medication Instructions Recorded Gabapentin [Neurontin] 200 mg PO TID #9 capsule 11/13/18 Clopidogrel Bisulfate [Plavix] 75 mg PO DAILY #90 tab 02/28/19 Allergies Allergy/AdvReac Type Severity Reaction Status Date / Time sulfamethoxazole Allergy Itching Verified 04/25/19 14:46 [From Bactrim] trimethoprim [From Bactrim] Allergy Itching Verified 04/25/19 14:46 Review of Systems ROS Statement: Those systems with pertinent positive or pertinent negative responses have been documented in the HPI. ROS Other: All systems not noted in ROS Statement are negative. Past Medical History Past Medical History: CVA/TIA, Diabetes Mellitus, Hyperlipidemia, Hypertension, Osteoarthritis (OA), Vascular Disorder Additional Past Medical History / Comment(s): chronic gout, carpal tunnel, TIA 2018-no residual effects History of Any Multi-Drug Resistant Organisms: ESBL Date of last positivie culture/infection: 01/26/19 MDRO Source:: urine Past Surgical History: Hysterectomy Additional Past Surgical History / Comment(s): neck surg, left BKA in October, & then revision of in December Past Anesthesia/Blood Transfusion Reactions: No Reported Reaction Past Psychological History: No Psychological Hx Reported Smoking Status: Current some day smoker Past Alcohol Use History: None Reported Past Drug Use History: None Reported - Past Family History Mother Additional Family Medical History / Comment(s): at age 47 from heart defect Father Family Medical History: CVA/TIA, Hyperlipidemia, Hypertension Additional Family Medical History / Comment(s): 2 strokes affected brain stem General Exam Limitations: no limitations General appearance: alert, in no apparent distress Head exam: Present: atraumatic, normocephalic, normal inspection Eye exam: Present: normal appearance Pupils: Present: normal accommodation ENT exam: Present: normal exam, mucous membranes moist, TM's normal bilaterally, normal external ear exam Neck exam: Present: normal inspection, full ROM Respiratory exam: Present: normal lung sounds bilaterally. Absent: respiratory distress, wheezes, rales, chest wall tenderness Cardiovascular Exam: Present: regular rate, normal rhythm, normal heart sounds (super sterile) Extremities exam: Present: full ROM, tenderness, normal capillary refill, pedal edema (+3pitting edema), calf tenderness (positive Homans.), other (to detect good pulses on right lower extremity with Doppler ultrasound.). Absent: normal inspection (BKA left lower extremity. Right lower extremity swelling with +3 pitting edema. No skin discoloration. the extremity appears to warm. Patient denies paresthesias the right lower extremity.diabetic ulcer on the right heel. Healing well. No discharge. No cellulitic surrounding changes.) Course Vital Signs 04/25/19 04/25/19 04/25/19 12:48 13:40 15:40 Temperature 97.8 F 98.0 F Pulse Rate 73 71 Respiratory 19 18 16 Rate Blood Pressure 157/76 142/70 O2 Sat by Pulse 100 98 Oximetry Medical Decision Making - Medical Decision Making patient is a 62-[id number] history of type 2 diabetes and peripheral vascular disease female presenting to the emergency department with a chief complaint ofright leg swelling.patient sent to the ED from the physician office requested a Doppler ultrasound. On exam I was able to detect a dorsalis pedis and posterior tibialis pulse with an ultrasound. Right lower extremity ultrasound was performed and no DVT was found. Patient was given symptomatic control and discharged with Tylenol 3 starter pack. Patient was about the possible side effects of the medication. Patient was seen yesterday at the physician office who noticed she had fluid in the right lower extremity and prescribed the patient Lasix. Patient states she was not able to fill the prescription yesterday and did not take any of the Lasix. Advised the patient to take the medication that she was prescribed. I suspect the pain is secondary to fluid overload. I'm not suspecting ischemia in the right lower extremity. Pulses present. No skin discoloration. The skin is warm. No further management at this time. Patient advised to return to the physician office. Strict return parameters were thoroughly discussed with patient was understanding and agreeable. Case discussed with physician. Disposition Clinical Impression: Right leg swelling Disposition: HOME SELF-CARE Condition: Stable Instructions (If sedation given, give patient instructions): Leg Edema (ED) Additional Instructions: Please take the Lasix as it was prescribed. Please follow-up with a vascular surgeon. Please return to emergency department if symptoms worsen. Is patient prescribed a controlled substance at d/c from ED?: No Referrals: Rene Armijo DO [Primary Care Provider] - 1-2 days Time of Disposition: 15:25
--- NOTE | 2019-04-25 14:05 | US ---
EXAMINATION TYPE: US venous doppler duplex LE RT DATE OF EXAM: 04/25/2019 1:20 PM COMPARISON: NONE CLINICAL HISTORY: r/o dvt. Right leg pain and swelling SIDE PERFORMED: Right TECHNIQUE: The lower extremity deep venous system is examined utilizing real time linear array sonog keith with graded compression, doppler sonography and color-flow sonography. VESSELS IMAGED: External Iliac Vein (EIV) Common Femoral Vein Deep Femoral Vein Greater Saphenous Vein * Femoral Vein Popliteal Vein Small Saphenous Vein * Proximal Calf Veins (* superficial vessels) Right Leg: Appears negative for DVT Grayscale, color doppler, spectral doppler imaging performed of the deep veins of the right lower ext remity. There is normal flow, compressibility, vascular waveforms. IMPRESSION: No ultrasound evidence for acute DVT in the right lower extremity.
[2019-04-25] MEDS ORDERED: HYDROcodone/APAP 7.5-325MG 1 EACH TAB PO ONE (14:15)
[2019-04-25] MEDS ORDERED: ACET/COD 300 MG/30 MG STARTER PACK 6 TAB BTL PO STA (15:35)
[2019-04-25 15:44] VITALS: BP 142/70; PULSE 71; RESP 16; TEMP 98
== END 2019-04-25 15:40 | disposition home or self-care (01) ==
LOC: EC 12:41
DX: M79.89 Other specified soft tissue disorders (principal); E11.9 Type 2 diabetes mellitus without complications; E78.5 Hyperlipidemia, unspecified; M10.9 Gout, unspecified; I10 Essential (primary) hypertension; F17.200 Nicotine dependence, unspecified, uncomplicated; Z79.4 Long term (current) use of insulin; Z79.899 Other long term (current) drug therapy; Z88.2 Allergy status to sulfonamides; Z88.1 Allergy status to other antibiotic agents; Z89.512 Acquired absence of left leg below knee; Z86.79 Personal history of other diseases of the circulatory system; Z86.73 Personal history of transient ischemic attack (TIA), and cerebral infarction without residual deficits
CPT/HCPCS: 99284

== ENCOUNTER → 2019-06-20 | Outpatient (CLI) | payer OTHER ==
[2019-06-20 15:12] LABS: HCT 31.4 % (34.0-46.0); HGB 9.8 gm/dL (11.4-16.0); Hypochromasia Moderate; MCH 28.1 pg (25.0-35.0); MCHC 31.3 g/dL (31.0-37.0); MCV 89.7 fL (80.0-100.0); Mean Platelet Volume 7.6; Platelet Count 356 k/uL (150-450); WBC 7.8 k/uL (3.8-10.6)
[2019-06-20 15:19] LABS: African American GFR (CKD) >90 (>60 ml/min/1.73 sqM); Anion Gap 8 mmol/L; Blood Urea Nitrogen 21 mg/dL (7-17); Carbon Dioxide 28 mmol/L (22-30); Chloride 100 mmol/L (98-107); Non-African American GFR(CKD) >90 (>60 ml/min/1.73 sqM); Potassium 3.5 mmol/L (3.5-5.1); Sodium 136 mmol/L (137-145)
== END ==
LOC: LABPAT 14:13
PROVIDERS: ATTEND Internal Medicine Interventional Cardiology
DX: Z01.812 Encounter for preprocedural laboratory examination (principal); I73.9 Peripheral vascular disease, unspecified
CPT/HCPCS: 36415; 80051; 82565; 84520; 85027

== ENCOUNTER 2019-06-22 07:52 | Day surgery (SDC) | payer OTHER ==
[2019-06-20 11:34] VITALS: BMI 28.3
[~2019-06-22 07:52] MED LIST changes: -ALPRAZolam 0.25 MG TAB PO PRN; -SODIUM CHLORIDE 0.9% (PF) 10 ML VIAL ONE; -niCARdipine 25 MG/10 ML VIAL ONE
[2019-06-22 08:32] LABS: Glucose,Whole Blood 126 mg/dL (75-99)
[2019-06-22] MEDS ORDERED: HYDROmorphone 1 MG/ML 1 ML SYRINGE ONE (08:44)
[2019-06-22] MEDS ORDERED: MIDAZOLAM 2 MG/2 ML VIAL IVP ONE (09:31)
[2019-06-22] MEDS ORDERED: LIDOCAINE 1% INJ 10MG/ML (20 ML MDV) SQ ONE (09:36)
[2019-06-22] MEDS ORDERED: IOPAMIDOL-250 100ML BTL INTRAARTER ONE (09:51)
[2019-06-22] MEDS ORDERED: SODIUM CHLORIDE 0.9% 1,000 ML IV SCH (10:15)
--- NOTE | 2019-06-22 10:31 | AN ---
ANGIOGRAPHY REPORT DATE OF SERVICE: June 22, 2019 PERFORMING PHYSICIAN: Jamir Saez MD. PROCEDURE PERFORMED: 1. An abdominal aortogram. 2. Right lower extremity angiogram. INDICATION: This is a 58-year-old female patient with peripheral arterial disease and known to have left [id number] amputation as well as known to have recent intervention on the right leg was experiencing severe right leg discomfort as well as edema. She underwent an arterial duplex study in the office and that showed possible occluded SFA. Because of the continuous pain, we decided to do an angiogram on her right leg. APPROACH: Right common femoral artery. COMPLICATION: None. LEVEL OF SEDATION: Moderate with sedation length of 20 minutes. PROCEDURE DESCRIPTION: After obtaining an informed consent, the patient was brought to the cardiac cardiac catheterization technician. The right common femoral artery was cannulated using micropuncture technique, the micropuncture wire passed easily then I placed a 5-Afghan sheath at the right common femoral artery. After that I did an abdominal aortogram and right lower extremity angiogram. The procedure was completed without any complication. SELECTIVE PERIPHERAL ANGIOGRAM: 1. The aorta appeared to be calcified with mild disease only. 2. Right common iliac artery appeared to be angiographically normal. 3. Right internal iliac artery appeared to be patent. 4. Right external iliac artery appeared to have mild diffuse disease only. 5. Right common femoral artery appeared to have intermediate disease only. 6. Right profunda appeared to be patent. 7. Right SFA appeared to be stented and the stent is patent. Distal to the stent, there is intermediate diffuse disease only. 8. Right popliteal appeared to have mild disease only. 9. Below the knee: There is 3-vessel runoff below the knee with anterior tibial, peroneal and posterior tibial artery. CONCLUSION: 1. Mild aortoiliac disease. 2. Mild femoral-popliteal disease. Patent stent in the right SFA. 3. Three-vessel runoff below the knee. POSTPROCEDURE MANAGEMENT: 1. I advised at this point maximize medical treatment. 2. Venous duplex study to rule out DVT. 3. Follow up with the patient. MMODL / IJN: [id number] /
--- NOTE | 2019-06-22 11:38 | US ---
EXAMINATION TYPE: US venous doppler duplex LE RT DATE OF EXAM: 06/22/2019 10:54 AM COMPARISON: US CLINICAL HISTORY: clear aortogram, rule out DVT. SIDE PERFORMED: Right TECHNIQUE: The lower extremity deep venous system is examined utilizing real time linear array sonog keith with graded compression, doppler sonography and color-flow sonography. VESSELS IMAGED: External Iliac Vein (EIV) Common Femoral Vein Deep Femoral Vein Greater Saphenous Vein * Femoral Vein Popliteal Vein Small Saphenous Vein * Proximal Calf Veins (* superficial vessels) Right Leg: Negative for DVT Grayscale, color doppler, spectral doppler imaging performed of the deep veins of the right lower ext remity. There is normal flow, compressibility, vascular waveforms. IMPRESSION: No sonographic evidence of deep venous thrombosis within the right lower extremity.
[2019-06-22] MEDS ORDERED: CYCLOBENZAPRINE 10 MG TAB PO PRN (12:14)
[2019-06-22 12:17] LABS: Glucose,Whole Blood 113 mg/dL (75-99)
--- NOTE | 2019-06-22 14:28 | IR ---
Fluoroscopy HISTORY: Right heel ulcer, leg pain, diabetes Minutes fluoroscopy time supplied to the referring clinician. 110 intraoperative C-arm images docume nt the procedure. See dictated report from cardiology.
[2019-06-22] MEDS: traMADol 50 MG TAB PO PRN ×2 (14:33→23:54)
[2019-06-22 16:50] LABS: Glucose,Whole Blood 106 mg/dL (75-99)
[2019-06-22] MEDS: GABAPENTIN 100 MG CAP PO SCH ×2 (17:57→20:03)
[2019-06-22 19:45] LABS: Glucose,Whole Blood 174 mg/dL (75-99)
[2019-06-22] MEDS: LISINOPRIL 20 MG TAB PO SCH (20:03)
[2019-06-22] MEDS: ALPRAZolam 0.25 MG TAB PO PRN (20:03)
[2019-06-22] MEDS: POTASSIUM CHLORIDE ER 20 MEQ TAB.ER PO SCH (20:04)
[2019-06-22] MEDS: HYDROCHLOROTHIAZIDE 25 MG TAB PO SCH (20:04)
[2019-06-22] MEDS ORDERED: ATORVASTATIN 20 MG TAB PO SCH (21:00)
[2019-06-22] MEDS ORDERED: INSULIN DETEMIR (LEVEMIR) 100 UNIT/ML SYR SQ SCH (21:00)
[2019-06-22] MEDS ORDERED: CITALOPRAM HYDROBROMIDE 20 MG TAB PO SCH (21:00)
[2019-06-23] MEDS: ALPRAZolam 0.25 MG TAB PO PRN (04:00)
[2019-06-23 06:52] LABS: Glucose,Whole Blood 91 mg/dL (75-99)
[2019-06-23 07:47] VITALS: RESP 18
[2019-06-23] MEDS: traMADol 50 MG TAB PO PRN (08:07)
[2019-06-23] MEDS: HYDROCHLOROTHIAZIDE 25 MG TAB PO SCH (08:08)
[2019-06-23] MEDS: LISINOPRIL 20 MG TAB PO SCH (08:08)
[2019-06-23] MEDS: GABAPENTIN 100 MG CAP PO SCH (08:08)
[2019-06-23] MEDS: POTASSIUM CHLORIDE ER 20 MEQ TAB.ER PO SCH (08:09)
[2019-06-23] MEDS ORDERED: COLCHICINE 0.6 MG EACH PO SCH (09:00)
[2019-06-23] MEDS ORDERED: CLOPIDOGREL 75 MG TAB PO SCH (09:00)
[2019-06-23] MEDS ORDERED: ALLOPURINOL 300 MG TAB PO SCH (09:00)
[2019-06-23] MEDS ORDERED: ATENOLOL 50 MG TAB PO SCH (09:00)
--- NOTE | 2019-06-23 09:54 | DS ---
DISCHARGE SUMMARY ADMISSION DATE: 06/22/2019 DISCHARGE DATE: 06/23/2019 BRIEF HISTORY: This is a 58-year-old female patient with a history of critical limb ischemia and known known amputation on the left side as well as known nonhealing wound involving the right foot. She underwent successful recanalizing chronic total occlusion of the right SFA and right popliteal recently. She was seen in the office recently where she was experiencing severe right leg discomfort as well as edema of the right leg. Because of that and because there was a concern regarding the occlusion of her left SFA, she was brought to the hospital yesterday and underwent right lower extremity angiogram which revealed patent right SFA. The patient also was found to have 3-vessel runoff below the knee. She was kept overnight because she does have right lower extremity swelling and I want to rule out a DVT. Venous duplex study was performed and showed no sonographic evidence of deep venous thrombosis within the right lower extremity. I am going to discharge the patient home and she is already on dual anti-platelet therapy along with statin. I will follow up with the patient in a few weeks in the office. Also I am suggesting the patient to be seen by Dr. Hunt who used to [facility] and also to follow up with Dr. Armijo, who is her primary care physician. MMROSALIAL / IJN: [id number] /
[2019-06-23] MEDS ORDERED: POTASSIUM CHLORIDE ER 20 MEQ TAB.ER PO STA (11:07)
[2019-06-23 11:46] LABS: Glucose,Whole Blood 94 mg/dL (75-99)
[2019-06-23 12:01] VITALS: BP 103/69; PULSE 69; TEMP 98.2
--- NOTE | 2019-07-20 10:39 | P.CONS ---
History of Present Illness - Reason for Consult Consult date: 06/23/19 Medical management - Chief Complaint severe right leg pain - History of Present Illness Patient is a 58-year-old female with a known history of hypertension, diabetes type 2 insulin-dependent, osteoarthritis, peripheral vascular disease with history of left BKA in October 2018, chronic gout, history of TIA and ongoing nicotine addiction was admitted to the hospital for right lower extremity angiog isis. Patient underwent successful recannulization of chronic occluded right SFA and right popliteal artery recently. Patient was seen at Dr. Saez's office and was experiencing severe right lower extremity pain and discomfort as well as swelling. Due to possible concern for occluded left SFA and also recent right lower extremity angiogram, patient was admitted to hospital and underwent right lower extremity angiogram on 06/22/2019. Patient was found have mild aortoiliac disease, mild femoropopliteal disease and three-vessel runoff below the knee. Patient had right lower extremity DVT, lower extremity duplex scan was done which was negative for acute DVT. Internal medicine was consulted for medical management and also patient does have severe anxiety and not sleeping well at night due to right lower extremity pain. Review of Systems Constitutional: Patient denies any fever or chills . No generalized weakness or weight loss. Abdomen: Patient denied nausea vomiting and diarrhea and abdominal pain. Cardiovascular: Patient denies any chest pain or short of breath no palpitations. Respiratory: patient denied any cough is from production. No shortness of breath Neurologic: Patient denied any numbness or tingling headache. Musculoskeletal: Patient denies any complaints of joint swelling or deformity. Patient does complain of right lower extremity pain especially at night. Skin: Negative Psychiatric: Anxiety Endocrine: No heat or cold intolerance. No recent weight gain. Genitourinary: No dysuria or hematuria. All other 14 point ROS negative except the above Past Medical History Past Medical History: CVA/TIA, Diabetes Mellitus, Hyperlipidemia, Hypertension, Osteoarthritis (OA), Vascular Disorder Additional Past Medical History / Comment(s): chronic gout, carpal tunnel, TIA 2018-no residual effects. wound on rt heel-has been seen at wound care center 05/28 History of Any Multi-Drug Resistant Organisms: ESBL Year Discovered:: 2019 MDRO Source:: urine Past Surgical History: Hysterectomy Additional Past Surgical History / Comment(s): neck surg, left BKA in October 25, & then revision of in December 25. stent rt leg 02/24 Past Anesthesia/Blood Transfusion Reactions: No Reported Reaction Smoking Status: Current every day smoker - Past Family History Mother Additional Family Medical History / Comment(s): at age 47 from heart defect Father Family Medical History: CVA/TIA, Hyperlipidemia, Hypertension Additional Family Medical History / Comment(s): 2 strokes affected brain stem Medications and Allergies Home Medications Medication Instructions Recorded Confirmed Type RX: Insulin Glargine,Hum.rec.anlog 25 unit SQ HS 03/29/17 07/18/19 History [Lantus Solostar] RX: Allopurinol [Zyloprim] 300 mg PO QAM 10/21/17 07/18/19 History RX: Colchicine [Colcrys] 0.6 mg PO DAILY 10/21/17 07/18/19 History RX: Gabapentin [Neurontin] 200 mg PO TID #9 capsule 11/13/18 07/18/19 Rx RX: Enalapril [Vasotec] 20 mg PO BID 02/27/19 07/18/19 History RX: Hydrochlorothiazide 25 mg PO BID 02/27/19 07/18/19 History [Hydrodiuril] RX: Atenolol [Tenormin] 50 mg PO DAILY 04/25/19 07/18/19 History RX: Atorvastatin [Lipitor] 20 mg PO HS 04/25/19 07/18/19 History RX: Citalopram Hydrobromide 40 mg PO DAILY 04/25/19 07/18/19 History [CeleXA] RX: Clopidogrel Bisulfate [Plavix] 75 mg PO DAILY 06/01/19 07/18/19 History RX: Potassium Chloride [Klor-Con 20 meq PO BID 06/01/19 07/18/19 History 20] RX: Cyclobenzaprine [Flexeril] 10 mg PO DAILY PRN 06/20/19 07/18/19 History RX: traMADol HCL [Ultram] 50 mg PO TID PRN 06/20/19 07/18/19 History RX: metFORMIN HCL 500 mg PO BID 07/18/19 07/18/19 History Allergies Allergy/AdvReac Type Severity Reaction Status Date / Time sulfamethoxazole Allergy Itching Verified 07/18/19 14:26 [From Bactrim] trimethoprim [From Bactrim] Allergy Itching Verified 07/18/19 14:26 Physical Exam Vitals: Vital Signs Temp Pulse Resp BP Pulse Ox 06/23/19 07:30 97.5 F L 93 18 114/72 96 06/23/19 06:04 97.6 F 75 17 114/76 97 06/23/19 05:49 68 17 06/23/19 04:00 98.2 F 68 17 128/67 96 06/23/19 00:00 86 17 06/22/19 23:54 98.4 F 86 17 150/75 97 06/22/19 20:00 90 18 06/22/19 19:31 98.7 F 90 18 140/64 97 06/22/19 16:00 97.1 F L 80 115/72 100 06/22/19 12:00 98.1 F 90 123/73 95 Intake and Output 06/22/19 06/23/19 06/23/19 22:59 06:59 14:59 Intake Total 300 240 Balance 300 240 Intake: Oral 300 240 Other: Voiding Method Bedpan Bedpan Bedpan # Voids 1 1 PHYSICAL EXAMINATION: Patient is lying in the bed comfortably, no acute distress, awake alert and oriented.. HEENT: Normocephalic. Neck is supple. Pupils reactive. Nostrils clear. Oral cavity is moist. Ears reveal no drainage. Neck reveals no JVD, carotid bruits, or thyromegaly. CHEST EXAMINATION: Trachea is central. Symmetrical expansion. Lung ferris clear to auscultation and percussion. CARDIAC: Normal S1, S2 with no gallops. No murmurs ABDOMEN: Soft. Bowel sounds normal. No organomegaly. No abdominal bruits. Extremities: Right lower activity 1+ edema, right heel ulcer with no purulent drainage or signs of infection. Left BKA. No clubbing or cyanosis Neurologically awake, alert, oriented x3 with well-coordinated movements. No focal deficits noted Skin: No rash or skin lesions. Psychiatric: Coperative. Nonsuicidal, anxious. Musculoskeletal: No joint swelling or deformity. Normal range of motion. Results Labs: Abnormal Lab Results - Last 24 Hours (Table) 06/22/19 06/22/19 06/22/19 Range/Units 12:16 16:48 19:44 POC Glucose (mg/dL) 113 H 106 H 174 H (75-99) mg/dL Assessment and Plan Assessment: Severe anxiety and insomnia Severe peripheral vascular disease with history of left BKA. History of chronic occluded right SFA status post decannulation recently. Right lower extremity pain and swelling status post repeat right lower extremity angiogram on 06/22/2019 showing patent right SFA. Diabetes type 2 insulin-dependent Hypertension controlled History of CVA/TIA with no residual weakness Osteoarthritis Hyperlipidemia Chronic gout Chronic right heel wound and is on follow-up with wound care center with Dr. Hunt Depression Obesity BMI 31.7 Ongoing nicotine addiction. Currently every day smoker DVT prophylaxis. Plan: Patient will be continued on current home medications. Continued status. Continue with insulin dosing. Metformin is on hold. Due to anxiety patient was started on Xanax which seemed to improve her symptoms . Patient was given prescription for few days and advised to follow-up as an outpatient with her primary care physician. Continue the pain management. Follow-up with wound care clinic. Further recommendations based on clinical course. Prognosis is guarded with multiple medical problems and comorbid conditions. Thank you for your consult. Time with Patient: Greater than 30
== END 2019-06-23 12:41 | disposition home or self-care (01) ==
LOC: CATHCVL 07:52 → 1SOBS 10:26 → CATHCVL 06-23 12:41
PROVIDERS: ATTEND Internal Medicine Interventional Cardiology
DX: I70.0 Atherosclerosis of aorta (principal); E11.51 Type 2 diabetes mellitus with diabetic peripheral angiopathy without gangrene; I70.221 Atherosclerosis of native arteries of extremities with rest pain, right leg; E11.621 Type 2 diabetes mellitus with foot ulcer; L97.419 Non-pressure chronic ulcer of right heel and midfoot with unspecified severity; R60.0 Localized edema; Z91.14 Patient's other noncompliance with medication regimen; Z79.4 Long term (current) use of insulin; I10 Essential (primary) hypertension; E78.5 Hyperlipidemia, unspecified; F17.210 Nicotine dependence, cigarettes, uncomplicated; Z95.820 Peripheral vascular angioplasty status with implants and grafts; Z89.512 Acquired absence of left leg below knee; Z82.49 Family history of ischemic heart disease and other diseases of the circulatory system; Z79.02 Long term (current) use of antithrombotics/antiplatelets; Z79.899 Other long term (current) drug therapy; Z88.2 Allergy status to sulfonamides
CPT/HCPCS: 36200; 75625; 75710; 93971; C1894; C1769 ×4; J2250; J2001; J1170; Q9966; 75716

== ENCOUNTER 2019-07-18 12:09 | Inpatient (IN) | payer OTHER ==
[2019-07-18] MEDS ORDERED: cefTRIAXone IN SWFI 1,000 MG/10 ML SYRINGE IVP STA (12:36)
[2019-07-18] MEDS ORDERED: VANCOMYCIN IV PER PHARMACY 1 EACH MISC MISCELLANE PRN (12:37)
[2019-07-18] MEDS ORDERED: VANCOMYCIN 1,250 MG in SODIUM CHLORIDE 0.9% 250 ML IVPB STA (12:46)
--- NOTE | 2019-07-18 13:02 | ED ---
General Adult HPI - General Chief complaint: Extremity Injury, Lower Stated complaint: diabetic wound on foot Time Seen by Provider: 07/18/19 12:26 Source: patient, EMS, RN notes reviewed, old records reviewed Mode of arrival: EMS Limitations: no limitations - History of Present Illness Initial comments: 58-year-old female history of left leg and palpitation, peripheral vascular disease, diabetes presenting with discoloration and blistering of toe on the right foot. Patient had contacted her vascular surgeon Dr. Hunt who recommended she present to the emergency department for evaluation. She had noted some erythema, swelling and warmth of the right lower extremity to the knee. She denies fever or chills. Denies chest pain or dyspnea. Denies abdominal pain nausea vomiting. She has had an angiogram of this leg in the recent past. - Related Data Home Medications Medication Instructions Recorded Confirmed Insulin Glargine,Hum.rec.anlog 25 unit SQ HS 03/29/17 06/22/19 [Lantus Solostar] Allopurinol [Zyloprim] 300 mg PO QAM 10/21/17 06/22/19 Colchicine [Colcrys] 0.6 mg PO DAILY 10/21/17 06/22/19 Enalapril [Vasotec] 20 mg PO BID 02/27/19 06/22/19 Hydrochlorothiazide [Hydrodiuril] 25 mg PO BID 02/27/19 06/22/19 Atenolol [Tenormin] 50 mg PO DAILY 04/25/19 06/22/19 Atorvastatin [Lipitor] 20 mg PO HS 04/25/19 06/22/19 Citalopram Hydrobromide [CeleXA] 40 mg PO HS 04/25/19 06/22/19 Clopidogrel Bisulfate [Plavix] 75 mg PO QAM 06/01/19 06/22/19 Potassium Chloride [Klor-Con 20] 20 meq PO BID 06/01/19 06/22/19 Cyclobenzaprine [Flexeril] 10 mg PO DAILY PRN 06/20/19 06/22/19 traMADol HCL [Ultram] 50 mg PO TID PRN 06/20/19 06/22/19 Previous Rx's Medication Instructions Recorded Gabapentin [Neurontin] 200 mg PO TID #9 capsule 11/13/18 ALPRAZolam [Xanax] 0.25 mg PO BID 3 Days #6 tab 06/23/19 Allergies Allergy/AdvReac Type Severity Reaction Status Date / Time sulfamethoxazole Allergy Itching Verified 06/20/19 11:20 [From Bactrim] trimethoprim [From Bactrim] Allergy Itching Verified 06/20/19 11:20 Review of Systems ROS Statement: Those systems with pertinent positive or pertinent negative responses have been documented in the HPI. ROS Other: All systems not noted in ROS Statement are negative. Past Medical History Past Medical History: CVA/TIA, Diabetes Mellitus, Hyperlipidemia, Hypertension, Osteoarthritis (OA), Vascular Disorder Additional Past Medical History / Comment(s): chronic gout, carpal tunnel, TIA 2018-no residual effects. wound on rt heel-has been seen at wound care center 05/28 History of Any Multi-Drug Resistant Organisms: ESBL Date of last positivie culture/infection: 2018 MDRO Source:: urine Past Surgical History: Hysterectomy Additional Past Surgical History / Comment(s): neck surg, left BKA in October 25, & then revision of in December 25. stent rt leg 02/24 Past Anesthesia/Blood Transfusion Reactions: No Reported Reaction Past Psychological History: Depression Smoking Status: Current some day smoker Past Alcohol Use History: None Reported Past Drug Use History: None Reported - Past Family History Mother Additional Family Medical History / Comment(s): at age 47 from heart defect Father Family Medical History: CVA/TIA, Hyperlipidemia, Hypertension Additional Family Medical History / Comment(s): 2 strokes affected brain stem General Exam Limitations: no limitations General appearance: alert, in no apparent distress Head exam: Present: atraumatic, normocephalic Eye exam: Present: normal appearance, PERRL ENT exam: Present: normal exam Neck exam: Present: normal inspection. Absent: tenderness, meningismus Respiratory exam: Present: normal lung sounds bilaterally. Absent: respiratory distress, wheezes Cardiovascular Exam: Present: regular rate, normal rhythm GI/Abdominal exam: Present: soft. Absent: distended, tenderness, guarding Extremities exam: Present: other (Erythema, swelling of the right foot, right calf to the knee. There is some minimal diffuse induration. She has gangrene of the right third toe with minimal blistering.) Neurological exam: Present: alert, oriented X3 Psychiatric exam: Present: normal affect, normal mood Skin exam: Present: warm, dry Course Vital Signs 07/18/19 12:30 Temperature 97.7 F Pulse Rate 95 Respiratory 18 Rate Blood Pressure 128/81 O2 Sat by Pulse 98 Oximetry Medical Decision Making - Medical Decision Making 58-year-old female presenting for swelling in the right lower extremity, erythema, and skin changes over the third toe. Patient has gangrene, and cellulitis in the foot and lower extremity to the knee. She has mild leukocytos is with left shift. She is initiated on IV antibiotics in the emergency department. She will be admitted to Dr. Armijo with Dr. Hunt on consult. Case discussed with Dr. Armijo. - Lab Data Result diagrams: 07/18/19 12:52 07/18/19 12:52 Lab Results 07/18/19 07/18/19 07/18/19 Range/Units 12:52 12:52 12:52 WBC 11.0 H (3.8-10.6) k/uL RBC 4.19 (3.80-5.40) m/uL Hgb 11.7 (11.4-16.0) gm/dL Hct 36.7 (34.0-46.0) % MCV 87.8 (80.0-100.0) fL MCH 27.9 (25.0-35.0) pg MCHC 31.8 (31.0-37.0) g/dL RDW 15.7 H (11.5-15.5) % Plt Count 426 (150-450) k/uL Neutrophils % 73 % Lymphocytes % 17 % Monocytes % 7 % Eosinophils % 2 % Basophils % 1 % Neutrophils # 8.0 H (1.3-7.7) k/uL Lymphocytes # 1.8 (1.0-4.8) k/uL Monocytes # 0.7 (0-1.0) k/uL Eosinophils # 0.2 (0-0.7) k/uL Basophils # 0.1 (0-0.2) k/uL PT 9.5 (9.0-12.0) sec INR 0.9 (<1.2) APTT 20.1 L (22.0-30.0) sec Sodium 138 (137-145) mmol/L Potassium 3.3 L (3.5-5.1) mmol/L Chloride 97 L (98-107) mmol/L Carbon Dioxide 27 (22-30) mmol/L Anion Gap 14 mmol/L BUN 30 H (7-17) mg/dL Creatinine 0.75 (0.52-1.04) mg/dL Est GFR (CKD-EPI)AfAm >90 (>60 ml/min/1.73 sqM) Est GFR (CKD-EPI)NonAf 89 (>60 ml/min/1.73 sqM) Glucose 117 H (74-99) mg/dL Plasma Lactic Acid Erwin (0.7-2.0) mmol/L Calcium 10.7 H (8.4-10.2) mg/dL Total Bilirubin 0.4 (0.2-1.3) mg/dL AST 28 (14-36) U/L ALT 24 (4-34) U/L Alkaline Phosphatase 142 H (38-126) U/L Total Protein 7.9 (6.3-8.2) g/dL Albumin 4.8 (3.5-5.0) g/dL 07/18/19 Range/Units 12:52 WBC (3.8-10.6) k/uL RBC (3.80-5.40) m/uL Hgb (11.4-16.0) gm/dL Hct (34.0-46.0) % MCV (80.0-100.0) fL MCH (25.0-35.0) pg MCHC (31.0-37.0) g/dL RDW (11.5-15.5) % Plt Count (150-450) k/uL Neutrophils % % Lymphocytes % % Monocytes % % Eosinophils % % Basophils % % Neutrophils # (1.3-7.7) k/uL Lymphocytes # (1.0-4.8) k/uL Monocytes # (0-1.0) k/uL Eosinophils # (0-0.7) k/uL Basophils # (0-0.2) k/uL PT (9.0-12.0) sec INR (<1.2) APTT (22.0-30.0) sec Sodium (137-145) mmol/L Potassium (3.5-5.1) mmol/L Chloride (98-107) mmol/L Carbon Dioxide (22-30) mmol/L Anion Gap mmol/L BUN (7-17) mg/dL Creatinine (0.52-1.04) mg/dL Est GFR (CKD-EPI)AfAm (>60 ml/min/1.73 sqM) Est GFR (CKD-EPI)NonAf (>60 ml/min/1.73 sqM) Glucose (74-99) mg/dL Plasma Lactic Acid Erwin 1.5 (0.7-2.0) mmol/L Calcium (8.4-10.2) mg/dL Total Bilirubin (0.2-1.3) mg/dL AST (14-36) U/L ALT (4-34) U/L Alkaline Phosphatase (38-126) U/L Total Protein (6.3-8.2) g/dL Albumin (3.5-5.0) g/dL Disposition Clinical Impression: Peripheral artery disease, Gangrene, Cellulitis Disposition: ADMITTED IP TO THIS [facility] Condition: Stable Is patient prescribed a controlled substance at d/c from ED?: No Referrals: Rene Armijo DO [Primary Care Provider] - 1-2 days Decision to Admit Reason: Admit from EC Decision Date: 07/18/19 Decision Time: 14:15
[2019-07-18 13:22] LABS: Basophils # (A) 0.1 k/uL (0-0.2); Basophils % (A) 1 %; Eosinophils # (A) 0.2 k/uL (0-0.7); Eosinophils % (A) 2 %; HCT 36.7 % (34.0-46.0); HGB 11.7 gm/dL (11.4-16.0); Lymphocytes # (A) 1.8 k/uL (1.0-4.8); Lymphocytes % (A) 17 %; MCH 27.9 pg (25.0-35.0); MCHC 31.8 g/dL (31.0-37.0); MCV 87.8 fL (80.0-100.0); Mean Platelet Volume 7.8; Monocytes # (A) 0.7 k/uL (0-1.0); Monocytes % (A) 7 %; Neutrophils % (A) 73 %; Platelet Count 426 k/uL (150-450); RBC 4.19 m/uL (3.80-5.40); RDW 15.7 % (11.5-15.5)
[2019-07-18 13:33] LABS: INR 0.9 (<1.2); Prothrombin Time 9.5 sec (9.0-12.0)
[2019-07-18 13:34] LABS: Partial Thromboplastin Time 20.1 sec (22.0-30.0)
--- NOTE | 2019-07-18 13:36 | XR ---
EXAMINATION TYPE: XR foot complete RT DATE OF EXAM: 07/18/2019 CLINICAL HISTORY: Right third toe osteomyelitis. TECHNIQUE: Frontal, lateral, and oblique images of the right foot are obtained. COMPARISON: None FINDINGS: There is diffuse soft tissue swelling of the right foot most pronounced over the dorsal mid foot. Lucency is seen over the inferior calcaneus and lateral calcaneus from skin defect and ulcerati on. Lateral subluxation of a prior fracture deformity of the proximal third phalanx is seen. Pencil i n cup deformity appearance of the distal aspect of the second proximal phalanx. Severe joint space na rrowing and subchondral cystic formation of the first metatarsal phalangeal joint. Diffuse osseous de mineralization. Distal interphalangeal joints are partially obscured by flexion deformities. No focal cortical erosion of the distal third phalanx seen. No radiopaque foreign body seen. IMPRESSION: 1. Deformities of the second and third proximal phalanges either from prior severe arthropathy, infec tion or fracture. No focal erosion of the distal third phalanx and the indicated area of interest. 2. Diffuse soft tissue swelling most pronounced over the dorsal midfoot. 3. Severe degenerative change of the first metatarsophalangeal joint. 3. Skin ulceration of the plantar lateral heel. No radiopaque foreign body.
[2019-07-18 14:01] LABS: ALT 24 U/L (4-34); AST 28 U/L (14-36); African American GFR (CKD) >90 (>60 ml/min/1.73 sqM); Albumin 4.8 g/dL (3.5-5.0); Alkaline Phosphatase 142 U/L (38-126); Anion Gap 14 mmol/L; Blood Urea Nitrogen 30 mg/dL (7-17); Calcium 10.7 mg/dL (8.4-10.2); Carbon Dioxide 27 mmol/L (22-30); Chloride 97 mmol/L (98-107); Glucose 117 mg/dL (74-99); Non-African American GFR(CKD) 89 (>60 ml/min/1.73 sqM); Potassium 3.3 mmol/L (3.5-5.1); Sodium 138 mmol/L (137-145); Total Bilirubin 0.4 mg/dL (0.2-1.3); Total Protein 7.9 g/dL (6.3-8.2)
[2019-07-18] MEDS ORDERED: NALOXONE 0.4 MG/ML 1 ML VIAL IV PRN (14:12)
[2019-07-18] MEDS: SODIUM CHLORIDE 0.9% 1,000 ML IV SCH (14:24)
[2019-07-18] MEDS: traMADol 50 MG TAB PO SCH ×2 (15:51→21:21)
[2019-07-18] MEDS: GABAPENTIN 100 MG CAP PO SCH ×2 (15:52→21:21)
[2019-07-19] MEDS: VANCOMYCIN 1,250 MG in SODIUM CHLORIDE 0.9% 250 ML IVPB SCH ×3 (00:56→23:15)
[2019-07-19] MEDS: ACETAMINOPHEN TAB 325 MG TAB PO PRN ×2 (00:58→08:27)
[2019-07-19] MEDS: traMADol 50 MG TAB PO SCH ×2 (08:25→15:08)
[2019-07-19] MEDS: GABAPENTIN 100 MG CAP PO SCH ×3 (08:25→21:26)
[2019-07-19 11:33] LABS: Glucose,Whole Blood 130 mg/dL (75-99)
[2019-07-19] MEDS: SODIUM CHLORIDE 0.9% 1,000 ML IV SCH (15:05)
[2019-07-19 16:43] LABS: Glucose,Whole Blood 136 mg/dL (75-99)
[2019-07-19] MEDS: ATENOLOL 50 MG TAB PO SCH (17:09)
[2019-07-19] MEDS: CITALOPRAM HYDROBROMIDE 20 MG TAB PO SCH (17:09)
[2019-07-19] MEDS: ALLOPURINOL 300 MG TAB PO SCH (17:09)
[2019-07-19] MEDS: INSULIN ASPART (NovoLOG) 100 UNIT/ML VIAL SQ SCH ×2 (17:09→21:25)
[2019-07-19] MEDS ORDERED: Potassium Replacement Protocol 1 EACH MISC MISCELLANE PRN ×2 (17:15→18:26)
[2019-07-19] MEDS ORDERED: Magnesium Replacement Protocol 1 EACH MISC MISCELLANE PRN (17:16)
[2019-07-19 18:03] LABS: Magnesium 1.7 mg/dL (1.6-2.3); Potassium 3.2 mmol/L (3.5-5.1)
[2019-07-19] MEDS: POTASSIUM CHLORIDE ER 20 MEQ TAB.ER PO SCH ×3 (19:08→21:27)
[2019-07-19] MEDS: CYCLOBENZAPRINE 10 MG TAB PO PRN (19:08)
[2019-07-19 20:09] LABS: Glucose,Whole Blood 190 mg/dL (75-99)
[2019-07-19] MEDS: INSULIN DETEMIR (LEVEMIR) 100 UNIT/ML SYR SQ SCH (21:25)
[2019-07-19] MEDS: ATORVASTATIN 20 MG TAB PO SCH (21:26)
[2019-07-19] MEDS: traMADol 50 MG TAB PO PRN (21:26)
[2019-07-19] MEDS: metFORMIN 500 MG TAB PO SCH (21:27)
[2019-07-19] MEDS: HYDROCHLOROTHIAZIDE 25 MG TAB PO SCH (21:27)
--- NOTE | 2019-07-19 23:18 | P.CONS ---
History of Present Illness - Reason for Consult Consult date: 07/19/19 right leg cellulitis Requesting physician: Rene Armijo - Chief Complaint right toe blister and leg redness - History of Present Illness Patient is a 58-year-old female presenting to the ER at [facility] yesterday with chief complaints of blistering and discoloration of the right foot to that apparently has been noticed by the patient day before yeste rday but denies having any history of any trauma or any tried in fitting shoes she been complaining of pain to the toe to be throbbing almost 7-8 of 10 patient also does have swelling and some redness that is been extended to the right lower leg patient apparently contacted her vascular surgeon Dr. Wallace who has advised the patient to go to the hospital on arrival to the ER patient noticed to be afebrile patient did have mildly respiratory 11,000 kidney function was normal patient did have blood cultures drawn which are currently pending patient has been started on vancomycin pharmacy to dose infectious was consulted for further recommendation of antibiotic therapy patient currently is having purulent drainage from her right fourth toe. Review of Systems Positive point has been mentioned in HPI rest of the systems are negative Past Medical History Past Medical History: CVA/TIA, Diabetes Mellitus, Hyperlipidemia, Hypertension, Osteoarthritis (OA), Vascular Disorder Additional Past Medical History / Comment(s): chronic gout, carpal tunnel, TIA 2017-no residual effects. wound on rt heel-has been seen at wound care center 05/28 History of Any Multi-Drug Resistant Organisms: ESBL Year Discovered:: 2019 MDRO Source:: urine Past Surgical History: Hysterectomy Additional Past Surgical History / Comment(s): neck surg, left BKA in October 25, & then revision of in December 25. stent rt leg 02/24 Past Anesthesia/Blood Transfusion Reactions: No Reported Reaction Past Psychological History: Depression Additional Psychological History / Comment(s): WidowedRemains a smoker. Very anxious about current situation Smoking Status: Former smoker Past Alcohol Use History: None Reported Additional Past Alcohol Use History / Comment(s): started smoking age 17, cutdown to maybe a cigarette q few days Past Drug Use History: None Reported - Past Family History Mother Additional Family Medical History / Comment(s): at age 47 from heart defect Father Family Medical History: CVA/TIA, Hyperlipidemia, Hypertension Additional Family Medical History / Comment(s): 2 strokes affected brain stem Medications and Allergies Home Medications Medication Instructions Recorded Confirmed Type Insulin Glargine,Hum.rec.anlog 25 unit SQ HS 03/29/17 07/18/19 History [Lantus Solostar] Allopurinol [Zyloprim] 300 mg PO QAM 10/21/17 07/18/19 History Colchicine [Colcrys] 0.6 mg PO DAILY 10/21/17 07/18/19 History Gabapentin [Neurontin] 200 mg PO TID #9 capsule 11/13/18 07/18/19 Rx Enalapril [Vasotec] 20 mg PO BID 02/27/19 07/18/19 History Hydrochlorothiazide [Hydrodiuril] 25 mg PO BID 02/27/19 07/18/19 History Atenolol [Tenormin] 50 mg PO DAILY 04/25/19 07/18/19 History Atorvastatin [Lipitor] 20 mg PO HS 04/25/19 07/18/19 History Citalopram Hydrobromide [CeleXA] 40 mg PO DAILY 04/25/19 07/18/19 History Clopidogrel Bisulfate [Plavix] 75 mg PO DAILY 06/01/19 07/18/19 History Potassium Chloride [Klor-Con 20] 20 meq PO BID 06/01/19 07/18/19 History Cyclobenzaprine [Flexeril] 10 mg PO DAILY PRN 06/20/19 07/18/19 History traMADol HCL [Ultram] 50 mg PO TID PRN 06/20/19 07/18/19 History metFORMIN HCL 500 mg PO BID 07/18/19 07/18/19 History Allergies Allergy/AdvReac Type Severity Reaction Status Date / Time sulfamethoxazole Allergy Itching Verified 07/18/19 14:26 [From Bactrim] trimethoprim [From Bactrim] Allergy Itching Verified 07/18/19 14:26 Physical Exam Vitals: Vital Signs Temp Pulse Pulse Resp BP BP Pulse Ox 07/19/19 07:00 98.4 F 81 17 127/69 98 07/19/19 01:26 98.5 F 91 16 125/72 94 L 07/18/19 19:07 98.8 F 92 14 115/65 99 07/18/19 18:23 18 03/11/20 18:00 83 16 140/72 98 07/18/19 17:50 20 07/18/19 17:00 78 16 98 07/18/19 16:00 80 16 98 07/18/19 15:00 69 16 98 07/18/19 14:00 78 16 98 07/18/19 13:37 82 16 137/80 98 07/18/19 12:37 16 07/18/19 12:30 97.7 F 95 18 128/81 98 Intake and Output 07/18/19 07/19/19 07/19/19 22:59 06:59 14:59 Intake Total 222 Balance 222 Intake: Oral 222 Other: Voiding Method Diaper # Voids 1 1 Weight 70.307 kg GENERAL DESCRIPTION: Middle-aged female lying in bed, no distress. No tachypnea or accessory muscle of respiration use. HEENT: Shows Pallor , no scleral icterus. Oral mucous membrane is dry. NECK: Trachea central, no thyromegaly. LUNGS: Unlabored breathing. Clear to auscultation anteriorly. No wheeze or crackle. HEART: S1, S2, regular rate and rhythm. ABDOMEN: Soft, no tenderness , guarding or rigidity EXTREMITIES: Right leg with minimal swelling erythema slightly warm to touch fourth toe dorsum did have a blister but no purulence drainage was noticed sKIN: No rash, no masses palpable. NEUROLOGICAL: The patient is awake, alert, oriented x3, mood and affect normal. Results CBC & Chem 7: 07/18/19 12:52 07/19/19 17:23 Labs: Abnormal Lab Results - Last 24 Hours (Table) 07/18/19 07/18/19 07/18/19 Range/Units 12:52 12:52 12:52 WBC 11.0 H (3.8-10.6) k/uL RDW 15.7 H (11.5-15.5) % Neutrophils # 8.0 H (1.3-7.7) k/uL APTT 20.1 L (22.0-30.0) sec Potassium 3.3 L (3.5-5.1) mmol/L Chloride 97 L (98-107) mmol/L BUN 30 H (7-17) mg/dL Glucose 117 H (74-99) mg/dL Calcium 10.7 H (8.4-10.2) mg/dL Alkaline Phosphatase 142 H (38-126) U/L Assessment and Plan Assessment: patient with right lower extremity cellulitis source could have been the right fourth toe blister that up and has been there for about 2 days no history of any trauma and will likely need to cover for the gram-positive skin angela to the likely pathogen associated with the cellulitis (1) Cellulitis of right leg Current Visit: Yes Status: Acute Code(s): L03.115 - CELLULITIS OF RIGHT LOWER LIMB SNOMED Code(s): 740895554 Plan: 1-vancomycin pharmacy to dose her with a target trough of 15 while watching her kidney function and Vanco trough closely. 2-dry Aquacel dressing to the right fourth toe wound changed daily We will follow on clinical condition and cultures to further adjust medication if needed Thank you for this consultation we will follow the patient along with you Time with Patient: Greater than 30
--- NOTE | 2019-07-20 04:29 | CONS ---
CONSULTATION Priya is a 58-year-old diabetic female with history of peripheral vascular disease. The patient was seen by Dr. Saez. The patient had angiogram and had some intervention done. The patient has developed a pressure ulcer on the right heel and also some ulcer on the 4th toe, right foot. MEDICAL HISTORY: History of diabetes, peripheral vascular disease. PAST SURGERY HISTORY: Patient had a left BK amputation done by me in the past. The patient has been wearing prosthesis. PHYSICAL EXAMINATION: Patient was seen in her room. NECK: Supple, trachea central. CHEST: Clear. ABDOMEN: Soft. Femorals are 1+. Patient has a left BK amputation. Also, on the right heel there is an ulcer 1 x 2 cm with the base of the wound is dry. No discharge noted. Patient also noted to have a 4th toe superficial ulcer. ( ) is not palpable. PLAN: We will ( ) gel for the wound and the patient is under care of Dr. Saez. I will discuss with Dr. Saez for further intervention. I will follow with you. MMODL / IJN: [id number] /
[2019-07-20] MEDS: traMADol 50 MG TAB PO PRN ×3 (05:02→23:09)
[2019-07-20 07:00] LABS: Glucose,Whole Blood 74 mg/dL (75-99)
[2019-07-20] MEDS: INSULIN ASPART (NovoLOG) 100 UNIT/ML VIAL SQ SCH ×4 (07:10→20:41)
[2019-07-20] MEDS: LISINOPRIL 20 MG TAB PO SCH (07:50)
[2019-07-20] MEDS: ATENOLOL 50 MG TAB PO SCH (07:50)
[2019-07-20] MEDS: CITALOPRAM HYDROBROMIDE 20 MG TAB PO SCH (07:50)
[2019-07-20] MEDS: COLCHICINE 0.6 MG EACH PO SCH (07:50)
[2019-07-20] MEDS: GABAPENTIN 100 MG CAP PO SCH ×3 (07:50→23:10)
[2019-07-20] MEDS: CLOPIDOGREL 75 MG TAB PO SCH (07:50)
[2019-07-20] MEDS: HYDROCHLOROTHIAZIDE 25 MG TAB PO SCH (07:50)
[2019-07-20] MEDS: POTASSIUM CHLORIDE ER 20 MEQ TAB.ER PO SCH ×2 (07:50→20:42)
[2019-07-20] MEDS: ALLOPURINOL 300 MG TAB PO SCH (07:50)
[2019-07-20] MEDS: metFORMIN 500 MG TAB PO SCH ×2 (07:51→20:42)
[2019-07-20] MEDS ORDERED: VANCOMYCIN TROUGH DUE 1 EACH MISC MISCELLANE ONE (11:00)
[2019-07-20 11:25] LABS: Basophils % (A) 0 %; Eosinophils # (A) 0.2 k/uL (0-0.7); Eosinophils % (A) 2 %; HCT 31.4 % (34.0-46.0); Lymphocytes # (A) 1.7 k/uL (1.0-4.8); Lymphocytes % (A) 21 %; MCH 27.6 pg (25.0-35.0); MCHC 31.2 g/dL (31.0-37.0); MCV 88.6 fL (80.0-100.0); Mean Platelet Volume 7.9; Monocytes # (A) 0.6 k/uL (0-1.0); Monocytes % (A) 7 %; Neutrophils # (A) 5.7 k/uL (1.3-7.7); Neutrophils % (A) 67 %; Platelet Count 362 k/uL (150-450); RBC 3.54 m/uL (3.80-5.40); RDW 15.6 % (11.5-15.5); WBC 8.4 k/uL (3.8-10.6)
[2019-07-20 11:30] LABS: HGB 9.8 gm/dL (11.4-16.0)
[2019-07-20 11:35] LABS: African American GFR (CKD) >90 (>60 ml/min/1.73 sqM); Anion Gap 10 mmol/L; Blood Urea Nitrogen 22 mg/dL (7-17); Calcium 9.9 mg/dL (8.4-10.2); Carbon Dioxide 25 mmol/L (22-30); Chloride 102 mmol/L (98-107); Glucose 92 mg/dL (74-99); Magnesium 1.5 mg/dL (1.6-2.3); Non-African American GFR(CKD) 89 (>60 ml/min/1.73 sqM); Potassium 3.9 mmol/L (3.5-5.1); Sodium 137 mmol/L (137-145)
[2019-07-20 12:03] LABS: Glucose,Whole Blood 94 mg/dL (75-99)
[2019-07-20] MEDS: VANCOMYCIN 1,250 MG in SODIUM CHLORIDE 0.9% 250 ML IVPB SCH (12:06)
[2019-07-20] MEDS ORDERED: Magnesium Replacement Protocol 1 EACH MISC MISCELLANE PRN (12:48)
--- NOTE | 2019-07-20 12:53 | P.CRDCN ---
History of Present Illness History of present illness: HISTORY OF PRESENTING ILLNESS This is a pleasant 58-year-old female past medical history significant for diabetes mellitus, hypertension, dyslipidemia, TIA, peripheral vascular dis ease, left BKA and chronic nicotine dependence. She follows in the office with Dr. Saez. We have been asked to see in consultation for right lower extremity pain. In June 2019 she underwent a right lower extremity angiogram revealing aorta is calcified with mild disease, right iliac artery ang iographically normal, right internal iliac artery patent, right external iliac artery with mild diffuse disease only, right common femoral artery with intermediate disease only, right profunda is patent, right SFA stented with a patent stent, distal to the stent there is intermediate diffuse disease, right popliteal with mild disease only, below the knee there is three-vessel runoff with anterior tib, perioneal and posterior tib arteries. She states for the last month she has been experiencing increased pain and swelling in the right leg. She has been taking increased PO lasix on advice of Dr. Saez with no significant improvement. She states the only way she tolerate the pain in the leg is by letting it hand dependently. She denies chest pain, shortness of breath, dizziness or palpitations. X-ray of the right foot reveals deformities of the second and third proximal phalanges, diffuse soft tissue swelling, severe degenerative changes of the first metatarsal phalangeal joint and skin u lceration of the plantar lateral heel. Current daily medications include atenolol 50 mg daily, atorvastatin 20 mg at bedtime, Plavix 75 mg daily, enalapril 20 mg twice a day, hydrochlorothiazide 25 mg twice a day. Laboratory data reviewed, WBC 8.4, hemoglobin 9.8, platelets 362, sodium 137, potassium 3.9, creatinine 0.75, magnesium 1.5. Recent echocardiogram obtained in the office November 2018 revealed preserved LV systolic function with normal ejection fraction, severe pulmonary hypertension, moderate to severe tricuspid regurgitation and mild mitral regurgitation. REVIEW OF SYSTEMS At the time of my exam: CONSTITUTIONAL: Denies fever or chills. CARDIOVASCULAR: Denies chest pain, shortness of breath, orthopnea, PND or palpitations. RESPIRATORY: Denies cough. GASTROINTESTINAL: Denies abdominal pain, diarrhea, constipation, nausea or vomiting. MUSCULOSKELETAL: Complains of right lower extremity pain. NEUROLOGIC: Denies numbness, tingling or weakness. ENDOCRINE: Denies fatigue, weight change, polydipsia or polyurina. GENITOURINARY: Denies burning, hematuria or urgency with micturation. HEMATOLOGIC: Denies history of anemia or bleeding. PHYSICAL EXAMINATION Blood pressure 139/77 heart rate 81 afebrile and maintaining oxygen saturation on room air. CONSTITUTIONAL: No apparent distress. HEENT: Head is normocephalic. Pupils are equal, round. Sclerae anicteric. Mucous membranes of the mouth are moist. No JVD. No carotid bruit. CHEST EXAMINATION: Lungs are clear to auscultation. No chest wall tenderness is noted on palpation or with deep breathing. HEART EXAMINATION: Regular rate and rhythm. S1, S2 heard. No murmurs, gallops or rub. ABDOMEN: Soft, nontender. Positive bowel sounds. EXTREMITIES: Left BKA, right lower extremity 2+ pitting edema in the leg and significant soft tissue swelling in the foot. Wound to the right lateral heel. NEUROLOGIC EXAMINATION: Patient is awake, alert and oriented x3. ASSESSMENT Right lower extremity pain Peripheral vascular disease status post prior revascularization Hypokalemia Hypomagnesemia Diabetes mellitus Hypertension Dyslipidemia History of TIA Left below the knee amputation PLAN Recommend IV diuresis to relieve pressure and swelling of the right leg. Pulse not felt by dorsalis pulse not palpated by touch, auscultated by doppler. Obtain 2D echocardiogram and doppler study to assess cardiac structure and function. Replace magnesium per protocol. Continue oral potassium supplementation. Further recommendations to follow based upon clinical course. Thank you kindly for this consultation. Nurse Practitioner note has been reviewed, I agree with a documented findings and plan of care. Patient was seen and examined. Past Medical History Past Medical History: CVA/TIA, Diabetes Mellitus, Hyperlipidemia, Hypertension, Osteoarthritis (OA), Vascular Disorder Additional Past Medical History / Comment(s): chronic gout, carpal tunnel, TIA 2018-no residual effects. wound on rt heel-has been seen at wound care center 05/28 History of Any Multi-Drug Resistant Organisms: ESBL Date of last positivie culture/infection: 2018 MDRO Source:: urine Past Surgical History: Hysterectomy Additional Past Surgical History / Comment(s): neck surg, left BKA in October 25, & then revision of in December 25. stent rt leg 02/24 Past Anesthesia/Blood Transfusion Reactions: No Reported Reaction Past Psychological History: Depression Additional Psychological History / Comment(s): WidowedRemains a smoker. Very anxious about current situation Smoking Status: Former smoker Past Alcohol Use History: None Reported Additional Past Alcohol Use History / Comment(s): started smoking age 17, cutdow n to maybe a cigarette q few days Past Drug Use History: None Reported - Past Family History Mother Additional Family Medical History / Comment(s): at age 47 from heart defect Father Family Medical History: CVA/TIA, Hyperlipidemia, Hypertension Additional Family Medical History / Comment(s): 2 strokes affected brain stem Medications and Allergies Home Medications Medication Instructions Recorded Confirmed Type Insulin Glargine,Hum.rec.anlog 25 unit SQ HS 03/29/17 07/18/19 History [Lantus Solostar] Allopurinol [Zyloprim] 300 mg PO QAM 10/21/17 07/18/19 History Colchicine [Colcrys] 0.6 mg PO DAILY 10/21/17 07/18/19 History Gabapentin [Neurontin] 200 mg PO TID #9 capsule 11/13/18 07/18/19 Rx Enalapril [Vasotec] 20 mg PO BID 02/27/19 07/18/19 History Hydrochlorothiazide [Hydrodiuril] 25 mg PO BID 02/27/19 07/18/19 History Atenolol [Tenormin] 50 mg PO DAILY 04/25/19 07/18/19 History Atorvastatin [Lipitor] 20 mg PO HS 04/25/19 07/18/19 History Citalopram Hydrobromide [CeleXA] 40 mg PO DAILY 04/25/19 07/18/19 History Clopidogrel Bisulfate [Plavix] 75 mg PO DAILY 06/01/19 07/18/19 History Potassium Chloride [Klor-Con 20] 20 meq PO BID 06/01/19 07/18/19 History Cyclobenzaprine [Flexeril] 10 mg PO DAILY PRN 06/20/19 07/18/19 History traMADol HCL [Ultram] 50 mg PO TID PRN 06/20/19 07/18/19 History metFORMIN HCL 500 mg PO BID 07/18/19 07/18/19 History Allergies Allergy/AdvReac Type Severity Reaction Status Date / Time sulfamethoxazole Allergy Itching Verified 07/18/19 14:26 [From Bactrim] trimethoprim [From Bactrim] Allergy Itching Verified 07/18/19 14:26 Physical Exam Vitals: Vital Signs Temp Pulse Resp BP Pulse Ox 07/20/19 07:00 97.9 F 81 18 139/77 98 07/20/19 00:31 98.4 F 75 14 126/75 94 L 07/19/19 19:03 98.1 F 67 15 124/75 99 07/19/19 15:00 98.4 F 97 17 119/70 94 L Intake and Output 07/19/19 07/20/19 07/20/19 22:59 06:59 14:59 Output Total 500 Balance -500 Output: Urine 500 Other: Voiding Method Diaper Diaper # Voids 1 1 Results 07/20/19 10:48 07/20/19 10:48 CBC 07/20/19 Range/Units 10:48 WBC 8.4 (3.8-10.6) k/uL RBC 3.54 L (3.80-5.40) m/uL Hgb 9.8 L D (11.4-16.0) gm/dL Hct 31.4 L (34.0-46.0) % Plt Count 362 (150-450) k/uL Comprehensive Metabolic Panel 07/19/19 07/20/19 Range/Units 17:23 10:48 Sodium 137 (137-145) mmol/L Potassium 3.2 L 3.9 (3.5-5.1) mmol/L Chloride 102 (98-107) mmol/L Carbon Dioxide 25 (22-30) mmol/L BUN 22 H (7-17) mg/dL Creatinine 0.75 (0.52-1.04) mg/dL Glucose 92 (74-99) mg/dL Calcium 9.9 (8.4-10.2) mg/dL Current Medications Generic Name Dose Route Start Last Admin Trade Name Freq PRN Reason Stop Dose Admin Acetaminophen 650 mg 07/18/19 14:12 07/19/19 08:27 Tylenol Tab PO 650 mg Q6HR PRN Administration Mild Pain or Fever > 100.5 Allopurinol 300 mg 07/19/19 16:30 07/20/19 07:50 Zyloprim PO 300 mg QAM EUGENIO Administration Atenolol 50 mg 07/19/19 16:30 07/20/19 07:50 Tenormin PO 50 mg DAILY EUGENIO Administration Atorvastatin Calcium 20 mg 07/19/19 21:00 07/19/19 21:26 Lipitor PO 20 mg HS EUGENIO Administration Citalopram Hydrobromide 40 mg 07/19/19 16:30 07/20/19 07:50 Celexa PO 40 mg DAILY EUGENIO Administration Clopidogrel Bisulfate 75 mg 07/20/19 09:00 07/20/19 07:50 Plavix PO 75 mg DAILY EUGENIO Administration Colchicine 0.6 mg 07/20/19 09:00 07/20/19 07:50 Colcrys PO 0.6 mg DAILY EUGENIO Administration Cyclobenzaprine HCl 10 mg 07/19/19 16:22 07/19/19 19:08 Flexeril PO 10 mg DAILY PRN Administration Pain Gabapentin 200 mg 07/19/19 22:00 07/20/19 07:50 Neurontin PO 200 mg TID EUGENIO Administration Hydrochlorothiazide 25 mg 07/19/19 21:00 07/20/19 07:50 Hydrodiuril PO 25 mg BID EUGENIO Administration Sodium Chloride 1,000 mls @ 20 mls/hr 07/18/19 14:15 07/19/19 15:05 Saline 0.9% IV Not Given .Q24H EUGENIO Vancomycin HCl 1,250 mg/ 250 mls @ 125 mls/hr 07/19/19 00:00 07/20/19 12:06 Sodium Chloride IVPB 125 mls/hr Q12H EUGENIO Administration Insulin Aspart 0 unit 07/19/19 17:30 07/20/19 12:05 Novolog SQ Not Given [facility] Protocol Insulin Detemir 25 unit 07/19/19 21:00 07/19/19 21:25 Levemir SQ 25 unit HS EUGENIO Administration Lisinopril 40 mg 07/20/19 09:00 07/20/19 07:50 Zestril PO 40 mg DAILY EUGENIO Administration Metformin HCl 500 mg 07/19/19 21:00 07/20/19 07:51 Glucophage PO 500 mg BID EUGENIO Administration Miscellaneous Information 1 each 07/19/19 17:15 Potassium Per Protocol MISCELLANE DAILY PRN Per Protocol Protocol Miscellaneous Information 1 each 07/19/19 17:16 Magnesium Per Protocol MISCELLANE DAILY PRN Per Protocol Protocol Miscellaneous Information 1 each 07/19/19 18:26 Potassium Per Protocol MISCELLANE DAILY PRN Per Protocol Protocol Naloxone HCl 0.2 mg 07/18/19 14:12 Narcan IV Q2M PRN Opioid Reversal Potassium Chloride 20 meq 07/19/19 21:00 07/20/19 07:50 K-Dur 20 PO 20 meq BID EUGENIO Administration Tramadol HCl 50 mg 07/19/19 16:22 07/20/19 05:02 Ultram PO 50 mg TID PRN Administration MODERATE TO SEVERE Pain Intake and Output 07/19/19 07/20/19 07/20/19 22:59 06:59 14:59 Output Total 500 Balance -500 Output: Urine 500 Other: Voiding Method Diaper Diaper # Voids 1 1 07/20/19 10:48 07/20/19 10:48
[2019-07-20] MEDS: MAGNESIUM SULFATE-D5W PMX 1 GM in DEXTROSE/WATER 1 100ML.BAG IVPB SCH ×2 (14:09→15:43)
[2019-07-20] MEDS: FUROSEMIDE 10 MG/ML 4 ML VIAL IV SCH ×2 (14:09→20:47)
[2019-07-20] MEDS: SODIUM CHLORIDE 0.9% 1,000 ML IV SCH (15:18)
[2019-07-20 15:21] VITALS: BMI 28.3
--- NOTE | 2019-07-20 16:13 | P.HPIM ---
History of Present Illness H&P Date: 07/19/19 This a 58-year-old female with history of CVA/TIA, diabetes mellitus, hypertension, hyperlipidemia, osteoarthritis peripheral vascular disease, chronic gout, chronic right heel wound-follows at the wound care clinic, ESBL- urine, ongoing nicotine dependence, depression, anxiety, presented to the ER as advised by Dr. Hunt. Patient had noticed discoloration, blistering of the right foot, fourth toe, swelling, warmness without odor or drainage, accompanied by throbbing/spasms. Afebrile, WBC 11. Potassium 3.3, supplemented now within normal limits, BUN 30, creatinine 0.75. Blood sugars ranging 117-190 on admission. Lactic acid 1.5, magnesium 1.7, currently 1.5 receiving supplementation. Cultures obtained. Initiated on vancomycin IV antibiotics. Vascular , infectious disease consulted. Review of Systems ROS Statement: Those systems with pertinent positive or pertinent negative responses have been documented in the HPI. ROS Other: All systems not noted in ROS Statement are negative. Past Medical History Past Medical History: CVA/TIA, Diabetes Mellitus, Hyperlipidemia, Hypertension, Osteoarthritis (OA), Vascular Disorder Additional Past Medical History / Comment(s): chronic gout, carpal tunnel, TIA 2018-no residual effects. wound on rt heel-has been seen at wound care center 05/28 History of Any Multi-Drug Resistant Organisms: ESBL Date of last positivie culture/infection: 2018 MDRO Source:: urine Past Surgical History: Hysterectomy Additional Past Surgical History / Comment(s): neck surg, left BKA in October 25, & then revision of in December 25. stent rt leg 02/24 Past Anesthesia/Blood Transfusion Reactions: No Reported Reaction Past Psychological History: Depression Additional Psychological History / Comment(s): WidowedRemains a smoker. Very anxious about current situation Smoking Status: Former smoker Past Alcohol Use History: None Reported Additional Past Alcohol Use History / Comment(s): started smoking age 17, cutdown to maybe a cigarette q few days Past Drug Use History: None Reported - Past Family History Mother Additional Family Medical History / Comment(s): at age 47 from heart defect Father Family Medical History: CVA/TIA, Hyperlipidemia, Hypertension Additional Family Medical History / Comment(s): 2 strokes affected brain stem Medications and Allergies Home Medications Medication Instructions Recorded Confirmed Type Insulin Glargine,Hum.rec.anlog 25 unit SQ HS 03/29/17 07/18/19 History [Lantus Solostar] Allopurinol [Zyloprim] 300 mg PO QAM 10/21/17 07/18/19 History Colchicine [Colcrys] 0.6 mg PO DAILY 10/21/17 07/18/19 History Gabapentin [Neurontin] 200 mg PO TID #9 capsule 11/13/18 07/18/19 Rx Enalapril [Vasotec] 20 mg PO BID 02/27/19 07/18/19 History Hydrochlorothiazide [Hydrodiuril] 25 mg PO BID 02/27/19 07/18/19 History Atenolol [Tenormin] 50 mg PO DAILY 04/25/19 07/18/19 History Atorvastatin [Lipitor] 20 mg PO HS 04/25/19 07/18/19 History Citalopram Hydrobromide [CeleXA] 40 mg PO DAILY 04/25/19 07/18/19 History Clopidogrel Bisulfate [Plavix] 75 mg PO DAILY 06/01/19 07/18/19 History Potassium Chloride [Klor-Con 20] 20 meq PO BID 06/01/19 07/18/19 History Cyclobenzaprine [Flexeril] 10 mg PO DAILY PRN 06/20/19 07/18/19 History traMADol HCL [Ultram] 50 mg PO TID PRN 06/20/19 07/18/19 History metFORMIN HCL 500 mg PO BID 07/18/19 07/18/19 History Allergies Allergy/AdvReac Type Severity Reaction Status Date / Time sulfamethoxazole Allergy Itching Verified 07/18/19 14:26 [From Bactrim] trimethoprim [From Bactrim] Allergy Itching Verified 07/18/19 14:26 Physical Exam Vitals: Vital Signs Temp Pulse Pulse Resp BP BP Pulse Ox 07/19/19 01:26 98.5 F 91 16 125/72 94 L 07/18/19 19:07 98.8 F 92 14 115/65 99 07/18/19 18:23 18 07/18/19 18:00 83 16 140/72 98 07/18/19 17:50 20 07/18/19 17:00 78 16 98 07/18/19 16:00 80 16 98 07/18/19 15:00 69 16 98 07/18/19 14:00 78 16 98 07/18/19 13:37 82 16 137/80 98 07/18/19 12:37 16 07/18/19 12:30 97.7 F 95 18 128/81 98 Intake and Output 07/18/19 07/19/19 07/19/19 22:59 06:59 14:59 Intake Total 222 Balance 222 Intake: Oral 222 Other: Voiding Method Diaper # Voids 1 1 Weight 70.307 kg PHYSICAL EXAM: VITAL SIGNS: As above GENERAL: Sitting up at side of bed, no acute distress HEENT: Conjunctivae normal. eyes normal. Oral mucosa moist NECK: No JVD. No thyroid enlargement. No LNs CARDIOVASCULAR: S1, S2 regular.. No murmur RESPIRATION: Breath sounds diminished in the bases. No rhonchi or crackles. No bronchial breathing. ABDOMEN: Soft, nontender . No guarding. no masses palpable. No ascites, No hepatosplenomegaly.Bowel sounds heard. LEGS: Left BKA, right lower extremity edema, redness of right foot/4th toe with blister/chronic lateral heel wound without drainage. Doppler Dp pulse. PSYCHIATRY: Alert and oriented X3, mood and affect normal. NERVOUS SYSTEM: Cranial N 2-12 grossly normal. Moves all 4 limbs. Diffuse weakness No focal deficits. Strength and sensation grossly intact.. Skin: no lesions, no rash Joints: No active swelling. No inflammation. Lymphatic system. No LN neck axilla or groin. Results CBC & Chem 7: 07/20/19 10:48 07/20/19 10:48 Labs: Abnormal Lab Results - Last 24 Hours (Table) 07/18/19 07/18/19 07/18/19 Range/Units 12:52 12:52 12:52 WBC 11.0 H (3.8-10.6) k/uL RDW 15.7 H (11.5-15.5) % Neutrophils # 8.0 H (1.3-7.7) k/uL APTT 20.1 L (22.0-30.0) sec Potassium 3.3 L (3.5-5.1) mmol/L Chloride 97 L (98-107) mmol/L BUN 30 H (7-17) mg/dL Glucose 117 H (74-99) mg/dL Calcium 10.7 H (8.4-10.2) mg/dL Alkaline Phosphatase 142 H (38-126) U/L Thrombosis Risk Factor Assmnt - Choose All That Apply Each Factor Represents 1 point: Age 41-60 years Thrombosis Risk Factor Assessment Total Risk Factor Score: 1 Thrombosis Risk Factor Assessment Level: Low Risk Assessment and Plan Assessment: Cellulitis of right lower extremity, right fourth toe blister Peripheral vascular disease status post revascularization Diabetes mellitus type 2 Left BKA Hyperkalemia Hypomagnesemia Hypertension Dyslipidemia History of CVA, TIA Chronic gout Obesity, BMI 20.3 Ongoing nicotine dependence Plan: Continue on current medication regime ,monitoring and symptomatic treatment. IV fluid hydration. Vancomycin . Local wound care. Infectious disease/vascular surgery consult in place. Home meds have been reviewed and resumed accordingly. Potassium replacement ordered. Magnesium level pending. Close monitoring of renal function, electrolytes with repeat labs ordered for a.m. PT/OT consulted. Social work consulted regarding possible subacute rehab. The impression and plan of care has been dictated as directed. : I performed a history and examination of this patient, discussed the same with the dictator. I agree with the dictator's note ,documented as a scribe. Any additional findings or plans will be noted.
--- NOTE | 2019-07-20 16:31 | P.PN ---
Subjective Progress Note Date: 07/20/19 This a 58-year-old female with history of CVA/TIA, diabetes mellitus, hypertension, hyperlipidemia, osteoarthritis peripheral vascular disease, chronic gout, chronic right heel wound-follows at the wound care clinic, ESBL- urine, ongoing nicotine dependence, depression, anxiety, presented to the ER as advised by Dr. Hunt. Patient had noticed discoloration, blistering of the right foot, fourth toe, swelling, warmness without odor or drainage, accompanied by throbbing/spasms. Afebrile, WBC 11. Potassium 3.3, supplemented now within normal limits, BUN 30, creatinine 0.75. Blood sugars ranging 117-190 on admission. Lactic acid 1.5, magnesium 1.7. Cultures obtained. Initiated on vancomycin IV antibiotics. Vascular , infectious disease consulted. 05/21/2019 maintained on vancomycin as per infectious disease. Continues on gentle IV fluid hydration. Complains of spasming of the right lower extremity. Magnesium currently 1.5 , Blood sugars better controlled. Afebrile. Cardiology/Dr. Saez consulted regarding possible intervention./angioplasty. Denies chest pain, palpitations or shortness of breath. Objective - Vital Signs Vital signs: Vital Signs Temp 97.9 F 07/20/19 07:00 Pulse 81 07/20/19 07:00 Resp 18 07/20/19 07:00 BP 139/77 07/20/19 07:00 Pulse Ox 98 07/20/19 07:00 Intake & Output 07/19/19 07/20/19 07/20/19 18:59 06:59 18:59 Output Total 1100 Balance -1100 Weight 70.307 kg Output: Urine 1100 Other: Voiding Method Diaper Diaper # Voids 1 - Exam VITAL SIGNS: As above GENERAL: Sitting up at side of bed, no acute distress HEENT: Conjunctivae normal. eyes normal. Oral mucosa moist NECK: No JVD. No thyroid enlargement. No LNs CARDIOVASCULAR: S1, S2 regular.. No murmur RESPIRATION: Breath sounds diminished in the bases. No rhonchi or crackles. No bronchial breathing. ABDOMEN: Soft, nontender . No guarding. no masses palpable. No ascites, No hepatosplenomegaly.Bowel sounds heard. LEGS: Left BKA, right lower extremity edema, redness of right foot/4th toe with blister/chronic lateral heel wound without drainage. Doppler Dp pulse. PSYCHIATRY: Alert and oriented X3, mood and affect normal. NERVOUS SYSTEM: Cranial N 2-12 grossly normal. Moves all 4 limbs. Diffuse weakness No focal deficits. Strength and sensation grossly intact.. Skin: no lesions, no rash Joints: No active swelling. No inflammation. Lymphatic system. No LN neck axilla or groin. - Labs CBC & Chem 7: 07/20/19 10:48 07/20/19 10:48 Labs: Abnormal Lab Results - Last 24 Hours (Table) 07/19/19 07/19/19 07/19/19 Range/Units 16:41 17:23 20:07 RBC (3.80-5.40) m/uL Hgb (11.4-16.0) gm/dL Hct (34.0-46.0) % RDW (11.5-15.5) % Potassium 3.2 L (3.5-5.1) mmol/L BUN (7-17) mg/dL POC Glucose (mg/dL) 136 H 190 H (75-99) mg/dL Magnesium (1.6-2.3) mg/dL 07/20/19 07/20/19 07/20/19 Range/Units 07:00 10:48 10:48 RBC 3.54 L (3.80-5.40) m/uL Hgb 9.8 L D (11.4-16.0) gm/dL Hct 31.4 L (34.0-46.0) % RDW 15.6 H (11.5-15.5) % Potassium (3.5-5.1) mmol/L BUN 22 H (7-17) mg/dL POC Glucose (mg/dL) 74 L (75-99) mg/dL Magnesium 1.5 L (1.6-2.3) mg/dL Microbiology - Last 24 Hours (Table) 07/18/19 12:52 Blood Culture - Preliminary Blood No Growth after 48 hours Assessment and Plan Assessment: Cellulitis of right lower extremity, right fourth toe blister,chronic right lateral heel wound Peripheral vascular disease status post revascularization Diabetes mellitus type 2 Left BKA Hyperkalemia Hypomagnesemia Hypertension Severe pulmonary hypertension Moderate to severe tricuspid regurgitation Dyslipidemia History of CVA, TIA Chronic gout Obesity, BMI 20.3 Ongoing nicotine dependence Plan: Continue on current medication regime ,monitoring and symptomatic treatment. IV fluid hydration. Antibiotics, wound care as per Infectious disease. Consult for Dr. Saez in place, recommendations pending .Potassium/magnesium replacements as per replacement protocol. Close monitoring of renal function, electrolytes with repeat labs ordered for a.m. subacute rehab at discharge. The impression and plan of care has been dictated as directed. : I performed a history and examination of this patient, discussed the same with the dictator. I agree with the dictator's note ,documented as a scribe. Any additional findings or plans will be noted.
[2019-07-20 17:16] LABS: Glucose,Whole Blood 116 mg/dL (75-99)
[2019-07-20 20:36] LABS: Glucose,Whole Blood 215 mg/dL (75-99)
[2019-07-20] MEDS: ATORVASTATIN 20 MG TAB PO SCH (20:42)
[2019-07-20] MEDS: INSULIN DETEMIR (LEVEMIR) 100 UNIT/ML SYR SQ SCH (20:42)
[2019-07-20] MEDS: VANCOMYCIN 1,000 MG in SODIUM CHLORIDE 0.9% 250 ML IVPB SCH (23:10)
[2019-07-20] MEDS: CYCLOBENZAPRINE 10 MG TAB PO PRN (23:10)
--- NOTE | 2019-07-20 23:37 | PN ---
PROGRESS NOTE DATE OF SERVICE: 07/20/2019. REASON FOR FOLLOWUP: Right lower extremity cellulitis. INTERVAL HISTORY: The patient is currently afebrile. She has been breathing comfortably. Denies having any chest pain or cough though likely pain and swelling has slightly decreased. Vomiting and no diarrhea. PHYSICAL EXAMINATION: Blood pressure is 104/60 with a pulse of 69, temperature 98.7, she is 98% on room air. General description is a middle-aged female up in the bed in no distress. Respiratory system: Unlabored breathing. Clear to auscultation anteriorly. Heart S1, S2. Regular rate and rhythm. Abdomen soft, no tenderness. Right leg swelling and redness slightly decreased. LABS: Hemoglobin 9.1, white count 8.4, BUN of 22, creatinine 0.75. White count slightly elevated. DIAGNOSTIC IMPRESSION AND PLAN: Patient with right lower extremity cellulitis. The patient is currently covered with Vanco which is to continue. Vanco dose needs to be cut down to keep the trough around 15. We will monitor the kidney function closely. Continue supportive care. MMODL / IJN: [id number] /
[2019-07-21 07:04] LABS: Glucose,Whole Blood 105 mg/dL (75-99)
[2019-07-21 08:00] LABS: African American GFR (CKD) >90 (>60 ml/min/1.73 sqM); Magnesium 1.8 mg/dL (1.6-2.3); Non-African American GFR(CKD) 88 (>60 ml/min/1.73 sqM)
[2019-07-21] MEDS: INSULIN ASPART (NovoLOG) 100 UNIT/ML VIAL SQ SCH ×4 (08:12→20:50)
[2019-07-21] MEDS: GABAPENTIN 100 MG CAP PO SCH ×3 (08:16→22:30)
[2019-07-21] MEDS: LISINOPRIL 20 MG TAB PO SCH (08:16)
[2019-07-21] MEDS: FUROSEMIDE 10 MG/ML 4 ML VIAL IV SCH ×2 (08:16→20:51)
[2019-07-21] MEDS: CITALOPRAM HYDROBROMIDE 20 MG TAB PO SCH (08:17)
[2019-07-21] MEDS: ATENOLOL 50 MG TAB PO SCH (08:17)
[2019-07-21] MEDS: COLCHICINE 0.6 MG EACH PO SCH (08:17)
[2019-07-21] MEDS: metFORMIN 500 MG TAB PO SCH ×2 (08:17→20:51)
[2019-07-21] MEDS: CLOPIDOGREL 75 MG TAB PO SCH (08:17)
[2019-07-21] MEDS: ALLOPURINOL 300 MG TAB PO SCH (08:17)
[2019-07-21] MEDS: POTASSIUM CHLORIDE ER 20 MEQ TAB.ER PO SCH ×2 (08:17→20:51)
[2019-07-21] MEDS: ACETAMINOPHEN TAB 325 MG TAB PO PRN (08:28)
[2019-07-21] MEDS: traMADol 50 MG TAB PO PRN ×3 (08:28→22:30)
--- NOTE | 2019-07-21 08:36 | ECHOF ---
Referral Reason:CHF MEASUREMENTS -------- HEIGHT: 157.5 cm WEIGHT: 70.3 kg BP: 139/77 RVIDd: 3.2 cm (< 3.3) IVSd: 1.0 cm (0.6 - 1.1) LVIDd: 4.5 cm (3.9 - 5.3) LVPWd: 1.0 cm (0.6 - 1.1) IVSs: 1.5 cm LVIDs: 2.7 cm LVPWs: 1.5 cm LA Diam: 3.0 cm (2.7 - 3.8) LAESV Index (A-L): 27.35 ml/m Ao Diam: 3.1 cm (2.0 - 3.7) AV Cusp: 2.0 cm (1.5 - 2.6) MV EXCURSION: 12.755 mm (> 18.000) MV EF SLOPE: 62 mm/s (70 - 150) EPSS: 0.6 cm MV E Conor: 1.06 m/s MV DecT: 221 ms MV A Conor: 1.22 m/s MV E/A Ratio: 0.87 AR PHT: 540 ms RAP: 5.00 mmHg RVSP: 32.75 mmHg TAPSE: 23.82 mm FINDINGS -------- Sinus rhythm. This was a technically good study. The left ventricular size is normal. Left ventricular wall thickness is normal. Overall left vent ricular systolic function is normal with, an EF between 60 - 65 %. The right ventricle is normal in size. Normal LA size by volume 22+/-6 ml/m2. The right atrium is normal in size. Interatrial and interventricular septum intact. The aortic valve is trileaflet and appears structurally normal. There is trace mitral regurgitation. Mild tricuspid regurgitation present. Right ventricular systolic pressure is normal at < 35 mmHg. The pulmonic valve was not well visualized. The aortic root size is normal. Normal inferior vena cava with normal inspiratory collapse consistent with estimated right atrial pre ssure of 5 mmHg. There is no pericardial effusion. CONCLUSIONS -------- 1. Sinus rhythm. 2. This was a technically good study. 3. The left ventricular size is normal. 4. Left ventricular wall thickness is normal. 5. Overall left ventricular systolic function is normal with, an EF between 60 - 65 %. 6. The right ventricle is normal in size. 7. Normal LA size by volume 22+/-6 ml/m2. 8. The right atrium is normal in size. 9. Interatrial and interventricular septum intact. 10. The aortic valve is trileaflet and appears structurally normal. 11. There is trace mitral regurgitation. 12. Mild tricuspid regurgitation present. 13. Right ventricular systolic pressure is normal at < 35 mmHg. 14. The pulmonic valve was not well visualized. 15. The aortic root size is normal. 16. Normal inferior vena cava with normal inspiratory collapse consistent with estimated right atrial pressure of 5 mmHg. 17. There is no pericardial effusion. DYNAMOTOR REPAIRER: Alix Duff RDCS
[2019-07-21 11:38] LABS: Glucose,Whole Blood 143 mg/dL (75-99)
[2019-07-21] MEDS: VANCOMYCIN 1,000 MG in SODIUM CHLORIDE 0.9% 250 ML IVPB SCH ×2 (12:41→23:35)
[2019-07-21] MEDS: SODIUM CHLORIDE 0.9% 1,000 ML IV SCH (15:44)
[2019-07-21 16:53] LABS: Glucose,Whole Blood 105 mg/dL (75-99)
--- NOTE | 2019-07-21 17:36 | PN ---
PROGRESS NOTE DATE OF SERVICE: 07/21/2019. REASON FOR FOLLOWUP: 1. Right fourth toe blister. 2. Right leg cellulitis. INTERIM HISTORY: The patient is currently afebrile. She has been breathing comfortably. The patient denies having any chest pain, shortness of breath or cough. No abdominal pain. Pain in the right leg has slightly decreased. PHYSICAL EXAMINATION: Her blood pressure is 92/54 with a pulse of 74, temperature is 97.3. She is 99% on room air. General description is a middle-aged female up in the bed in no distress. RESPIRATORY SYSTEM: Unlabored breathing. Clear to auscultation anteriorly. HEART: S1, S2. Regular rate and rhythm. ABDOMEN: Soft. No tenderness. Right leg swelling and redness have improved. Right fourth toe with no purulence or any drainage. DIAGNOSTIC IMPRESSION AND PLAN: Patient with right fourth toe and lower extremity cellulitis, clinically improved on the vancomycin. Transition to oral antibiotics on discharge to finish her course of therapy. MMODL / IJN: [id number] / BILL
[2019-07-21 18:47] LABS: Hemoglobin A1C 5.6 % (4.0-6.0)
[2019-07-21 20:06] LABS: Glucose,Whole Blood 168 mg/dL (75-99)
--- NOTE | 2019-07-21 20:18 | PN ---
PROGRESS NOTE I am covering for Dr. Armijo. DATE OF SERVICE: 07/21/2019. This 58-year-old woman who was admitted with cellulitis of the right leg, right extremity, also had right toe blister. The patient also had a chronic right heel lateral wound with peripheral vascular disease. The patient was started on broad- spectrum IV antibiotics. Dr. Quintero is following the patient closely. The current cultures are negative. Previous culture showed Staph stimulants, Klebsiella pneumoniae and E coli. No chest pain. No palpitations. PAST MEDICAL HISTORY: Reviewed. REVIEW OF SYSTEMS: CARDIOVASCULAR: No angina. No palpitations. RESPIRATION: As mentioned earlier. GASTROINTESTINAL: As mentioned earlier. no dysuria. NERVOUS SYSTEM: As mentioned earlier. CURRENT MEDICATIONS: Reviewed and include: 1. Tylenol p.r.n. 2. Zyloprim 300 mg q.a.m. 3. Tenormin 50 mg p.o. daily. 4. Lipitor 10 mg daily. 5. Celexa 40 mg daily. 6. Plavix 75 mg daily. 7. Colcrys 0.6 daily. 8. Flexeril 10 mg daily. 9. Lasix 40 mg IV b.i.d. 10.Neurontin. 11.NovoLog scale. 12.25 units subcu q.h.s. 13.Zestril 40 mg. 14.Glucophage 500 mg p.o. b.i.d. 15.K-Dur 20 mEq p.o. b.i.d. 16.Ultram 50 mg p.o. t.i.d. 17.Vancomycin. PHYSICAL EXAM: Patient is alert, oriented x3. Pulse blood pressure 98/50, respirations 16, temp 97.2, pulse ox 98% on room air. HEENT: Conjunctivae normal. NECK: No JVD. CARDIOVASCULAR: S1, S2 muffled. RESPIRATORY: Breath sounds diminished in the bases. Bilateral scattered rhonchi and crackles. ABDOMEN: Soft. LEGS significant ulceration and swelling of the right foot present. NERVOUS SYSTEM: No focal deficits. LABS: Hemoglobin ntd. Other labs are noted. ASSESSMENT: 1. Right foot ulcer multiple with cellulitis with failure of outpatient treatment. 2. Peripheral vascular disease and revascularization history. 3. Diabetes mellitus type 2. 4. Left below-knee amputation. 5. Hypomagnesemia. 6. Hypokalemia. 7. Anemia, normocytic anemia of chronic disease. 8. History of cerebrovascular accident/transient ischemic attack. 9. History of degenerative joint disease. 10.History of chronic gout. 11.Carpal tunnel syndrome. 12.History of transient ischemic attack. 13.History ESBL E coli. 14.History of depression. 15.Remote history of nicotine dependence. 16.FULL CODE. RECOMMENDATIONS AND DISCUSSION: In this 58-year-old woman who presented with multiple medical issues, we will monitor the patient closely, continue the current medications, management and symptomatic treatment. Otherwise, I recommend continue IV antibiotics. Follow the cultures. I would also recommend a bone scan. I would also recommend monitor blood sugars closely. Otherwise, DVT prophylaxis. Prognosis guarded because of multiple complex medical issues. Further recommendations to follow. MMODL / IJN: [id number] / MTDAnjum
[2019-07-21] MEDS: HEPARIN SODIUM,PORCINE 5,000 UNIT/ML 1 ML VIAL SQ SCH (20:51)
[2019-07-21] MEDS: ATORVASTATIN 20 MG TAB PO SCH (20:51)
[2019-07-21] MEDS: INSULIN DETEMIR (LEVEMIR) 100 UNIT/ML SYR SQ SCH (20:51)
[2019-07-21] MEDS: CYCLOBENZAPRINE 10 MG TAB PO PRN (22:30)
[2019-07-22 06:47] LABS: Basophils # (A) 0.1 k/uL (0-0.2); Basophils % (A) 1 %; Eosinophils # (A) 0.3 k/uL (0-0.7); Eosinophils % (A) 3 %; HCT 33.6 % (34.0-46.0); HGB 10.6 gm/dL (11.4-16.0); Lymphocytes # (A) 2.2 k/uL (1.0-4.8); Lymphocytes % (A) 25 %; MCH 27.9 pg (25.0-35.0); MCHC 31.6 g/dL (31.0-37.0); MCV 88.2 fL (80.0-100.0); Mean Platelet Volume 8.3; Monocytes # (A) 0.7 k/uL (0-1.0); Monocytes % (A) 8 %; Neutrophils # (A) 5.3 k/uL (1.3-7.7); Neutrophils % (A) 61 %; Platelet Count 305 k/uL (150-450); RBC 3.81 m/uL (3.80-5.40); RDW 15.6 % (11.5-15.5); WBC 8.7 k/uL (3.8-10.6)
[2019-07-22 07:01] LABS: Glucose,Whole Blood 94 mg/dL (75-99)
[2019-07-22 07:09] LABS: Calcium 9.4 mg/dL (8.4-10.2); Potassium 3.5 mmol/L (3.5-5.1)
[2019-07-22] MEDS: INSULIN ASPART (NovoLOG) 100 UNIT/ML VIAL SQ SCH ×4 (07:19→21:08)
[2019-07-22] MEDS: metFORMIN 500 MG TAB PO SCH ×2 (08:02→21:08)
[2019-07-22] MEDS: GABAPENTIN 100 MG CAP PO SCH ×3 (08:02→23:00)
[2019-07-22] MEDS: CITALOPRAM HYDROBROMIDE 20 MG TAB PO SCH (08:03)
[2019-07-22] MEDS: traMADol 50 MG TAB PO PRN ×3 (08:03→22:59)
[2019-07-22] MEDS: POTASSIUM CHLORIDE ER 20 MEQ TAB.ER PO SCH ×2 (08:03→21:08)
[2019-07-22] MEDS: CLOPIDOGREL 75 MG TAB PO SCH (08:03)
[2019-07-22] MEDS: ALLOPURINOL 300 MG TAB PO SCH (08:03)
[2019-07-22] MEDS: COLCHICINE 0.6 MG EACH PO SCH (08:04)
[2019-07-22] MEDS: HEPARIN SODIUM,PORCINE 5,000 UNIT/ML 1 ML VIAL SQ SCH ×2 (08:04→21:08)
[2019-07-22] MEDS: LISINOPRIL 20 MG TAB PO SCH (08:08)
[2019-07-22] MEDS: FUROSEMIDE 10 MG/ML 4 ML VIAL IV SCH (09:47)
[2019-07-22 11:35] LABS: Glucose,Whole Blood 135 mg/dL (75-99)
--- NOTE | 2019-07-22 11:42 | PN ---
PROGRESS NOTE This is a 58-year-old lady who is admitted to hospital with right foot edema and pain. She has peripheral vascular disease and has had recent interventions. She diuresed well and her leg edema has resolved on IV Lasix. I am going to switch her to p.o. Lasix this morning. On exam, she is afebrile. Heart rate is 77 per minute. Blood pressure is 107/60, respirations 18. Chest exam reveals good air entry bilaterally. Heart exam reveals first and second heart sounds. No gallop. No murmur. Exam of the extremities reveals that the foot pulses are diminished over the right foot. The edema has resolved. Echocardiogram on this admission revealed an ejection fraction of 60%. ASSESSMENT: Right foot cellulitis with edema, improved on IV Lasix. Switch to p.o. Lasix. MMODL / IJN: [id number] /
--- NOTE | 2019-07-22 11:42 | PN ---
PROGRESS NOTE DATE OF SERVICE: 07/21/2019 This is a 58-year-old lady who was admitted to hospital with right foot cellulitis, pain and edema. We have seen her on Tuesday and performed an echocardiogram, LV function was normal. Leg edema. We treated her with IV Lasix with significant improvement in the swelling, but she still has some leg swelling and continues to complain of pain. On exam, patient is comfortable at rest. Vital signs are stable. Blood pressure is 104/60, respirations 17, heart rate is 72. Chest exam reveals good air entry bilaterally. Heart exam reveals first and second heart sounds. No gallop. Exam of extremities reveals diminished pulses to the right foot with mild edema. ASSESSMENT: Cellulitis of the right foot with edema. Patient is responding to diuretics and I will leave her on IV Lasix for another day. MMODL / IJN: [id number] /
[2019-07-22] MEDS: FUROSEMIDE 40 MG TAB PO SCH (11:47)
[2019-07-22] MEDS: VANCOMYCIN 1,000 MG in SODIUM CHLORIDE 0.9% 250 ML IVPB SCH (11:53)
--- NOTE | 2019-07-22 15:15 | NM ---
EXAMINATION TYPE: NM bone 3 phase DATE OF EXAM: 07/22/2019 COMPARISON: X-ray 07/18/2019 HISTORY: Swelling. Triple phase bone scintigraphy was performed following the injection of 22.9 mCi Tc 99m MDP. Immedia te images and 6 hours post injection images acquired. FINDINGS: There appears to be increased perfusion to the left foot. Postsurgical change involving the right low er extremity. There is increased soft tissue uptake overlying the third digit. Abnormal uptake is see n involving the first digit which appears to correspond arthritic changes. Faint uptake involving the second and third digit suggest remote trauma. IMPRESSION: 1. Findings are felt to be compatible cellulitis. On delayed images the abnormal uptake is seen invol ving the first digit which demonstrates severe arthritic change which likely accounts for the finding . Correlate clinically. 2. Faint uptake involving the second and third digits likely related to previous trauma.
[2019-07-22] MEDS: SODIUM CHLORIDE 0.9% 1,000 ML IV SCH (15:26)
[2019-07-22] MEDS: ATENOLOL 50 MG TAB PO SCH (15:26)
[2019-07-22] MEDS: MAGNESIUM SULFATE-D5W PMX 1 GM in DEXTROSE/WATER 1 100ML.BAG IVPB SCH ×2 (15:57→16:58)
[2019-07-22 16:38] LABS: Glucose,Whole Blood 111 mg/dL (75-99)
--- NOTE | 2019-07-22 18:03 | PN ---
PROGRESS NOTE DATE OF SERVICE: 07/22/2019 I am covering for Dr. Armijo. This 58-year-old woman who was admitted with significant right foot multiple ulcers and failure of outpatient treatment. Patient had a bone scan today which showed compatible with cellulitis and arthritic changes and uptake to the previous trauma was also noted. Osteomyelitis seems to be likely. No chest pain. No palpitations. No fever. PAST MEDICAL HISTORY: Reviewed. REVIEW OF SYSTEMS: Cardiovascular system: No angina. RESPIRATORY: As mentioned earlier. GI: As mentioned earlier. : No dysuria or retention. CENTRAL NERVOUS SYSTEM: No numbness or weakness. MEDICATIONS: Reviewed. 1. Tylenol 650 q.6h p.r.n. 2. Zyloprim 300 mg q.a.m. 3. Tenormin. 4. Lipitor 20 mg q.h.s. 5. Celexa. 6. Plavix. 7. Colcrys 0.6 daily. 8. Flexeril 10 mg. 9. Lasix 40 mg daily. 10.Neurontin. 11.Heparin. 12.Levemir. 13.Zestril. 14.K-Dur. 15.Ultram. 16.Vancomycin. 17.Doses reviewed. PHYSICAL EXAM: Patient is alert, oriented x3. Pulse 79, blood pressure 88/60, respirations 16, temperature 97.2, pulse ox 98% on room air. HEENT: Conjunctivae normal. Neck is no JVD. CARDIOVASCULAR: S1, S2 muffled. RESPIRATORY: Breath sounds diminished in the bases, scattered rhonchi and crackles. ABDOMEN: Soft. LEGS: Ulcers present. NERVOUS SYSTEM: No focal deficits. LABS: WBC 8.2, hemoglobin 10.6, otherwise vancomycin 19.3. ASSESSMENT: 1. Right foot ulcer with multiple areas of cellulitis with failure of outpatient treatment. 2. No evidence of any conclusive evidence of osteomyelitis in the bone scan. 3. Peripheral vascular disease and revascularization history. 4. Diabetes mellitus type 2. 5. Left below-knee amputation. 6. Hypomagnesemia. 7. Hypokalemia. 8. Anemia, normocytic anemia of chronic disease. 9. History of cerebrovascular accident, transient ischemic attack. 10.History of degenerative joint disease. 11.History of chronic gout. 12.Carpal tunnel syndrome. 13.History of transient ischemic attack. 14.History ESBL E coli. 15.History of depression. 16.Remote history of nicotine dependence. 17.FULL CODE. RECOMMENDATIONS AND DISCUSSION: In this 58-year-old woman who presented with multiple complex medical issues, we will monitor the patient closely, continue the current medications, management and symptomatic treatment. Otherwise, at this time, I recommend continue with broad- spectrum IV antibiotics. As mentioned earlier, there is no definite evidence of any osteomyelitis. We will continue to follow with Infectious Disease. I will also check the uric acid. Guarded prognosis. Further recommendations to follow. MMODL / IJN: [id number] /
[2019-07-22 20:52] LABS: Glucose,Whole Blood 155 mg/dL (75-99)
[2019-07-22] MEDS: ATORVASTATIN 20 MG TAB PO SCH (21:08)
[2019-07-22] MEDS: INSULIN DETEMIR (LEVEMIR) 100 UNIT/ML SYR SQ SCH (21:09)
[2019-07-22] MEDS: CYCLOBENZAPRINE 10 MG TAB PO PRN (23:00)
[2019-07-22] MEDS ORDERED: VANCOMYCIN TROUGH DUE 1 EACH MISC MISCELLANE ONE (23:00)
[2019-07-23] MEDS: VANCOMYCIN 1,000 MG in SODIUM CHLORIDE 0.9% 250 ML IVPB SCH (00:56)
[2019-07-23] MEDS: VANCOMYCIN 750 MG in SODIUM CHLORIDE 0.9% 250 ML IVPB SCH ×2 (03:28→15:25)
[2019-07-23 06:56] LABS: Glucose,Whole Blood 95 mg/dL (75-99)
[2019-07-23] MEDS: INSULIN ASPART (NovoLOG) 100 UNIT/ML VIAL SQ SCH ×4 (07:28→20:39)
[2019-07-23] MEDS: GABAPENTIN 100 MG CAP PO SCH ×3 (07:51→22:43)
[2019-07-23] MEDS: CITALOPRAM HYDROBROMIDE 20 MG TAB PO SCH (07:51)
[2019-07-23] MEDS: HEPARIN SODIUM,PORCINE 5,000 UNIT/ML 1 ML VIAL SQ SCH ×2 (07:51→20:40)
[2019-07-23] MEDS: traMADol 50 MG TAB PO PRN ×2 (07:52→15:24)
[2019-07-23] MEDS: ATENOLOL 50 MG TAB PO SCH (07:52)
[2019-07-23] MEDS: FUROSEMIDE 40 MG TAB PO SCH (07:53)
[2019-07-23] MEDS: ALLOPURINOL 300 MG TAB PO SCH (07:53)
[2019-07-23] MEDS: COLCHICINE 0.6 MG EACH PO SCH (07:53)
[2019-07-23] MEDS: POTASSIUM CHLORIDE ER 20 MEQ TAB.ER PO SCH ×2 (07:53→20:39)
[2019-07-23] MEDS: metFORMIN 500 MG TAB PO SCH ×2 (07:53→20:39)
[2019-07-23] MEDS: CLOPIDOGREL 75 MG TAB PO SCH (07:54)
[2019-07-23] MEDS: LISINOPRIL 20 MG TAB PO SCH (07:54)
[2019-07-23 08:18] LABS: Basophils % (A) 1 %; Eosinophils # (A) 0.3 k/uL (0-0.7); Eosinophils % (A) 3 %; HCT 32.6 % (34.0-46.0); HGB 10.3 gm/dL (11.4-16.0); Hypochromasia Slight; Lymphocytes # (A) 2.2 k/uL (1.0-4.8); Lymphocytes % (A) 27 %; MCH 27.9 pg (25.0-35.0); MCHC 31.7 g/dL (31.0-37.0); Mean Platelet Volume 8.5; Monocytes # (A) 0.6 k/uL (0-1.0); Monocytes % (A) 8 %; Neutrophils # (A) 4.7 k/uL (1.3-7.7); Neutrophils % (A) 59 %; Platelet Count 317 k/uL (150-450); RBC 3.71 m/uL (3.80-5.40); RDW 15.3 % (11.5-15.5); WBC 8.1 k/uL (3.8-10.6)
[2019-07-23 08:43] LABS: African American GFR (CKD) >90 (>60 ml/min/1.73 sqM); Anion Gap 9 mmol/L; Blood Urea Nitrogen 43 mg/dL (7-17); Calcium 9.8 mg/dL (8.4-10.2); Carbon Dioxide 23 mmol/L (22-30); Chloride 106 mmol/L (98-107); Glucose 77 mg/dL (74-99); Non-African American GFR(CKD) 89 (>60 ml/min/1.73 sqM); Potassium 4.3 mmol/L (3.5-5.1); Sodium 138 mmol/L (137-145)
[2019-07-23 08:58] LABS: C Reactive Protein 14.4 mg/L (<10.0)
--- NOTE | 2019-07-23 09:16 | PN ---
PROGRESS NOTE DATE OF SERVICE: 07/22/2019 REASON FOR FOLLOWUP: Right heel wound and neck cellulitis. INTERVAL HISTORY: The patient is currently afebrile. She has been breathing comfortably. Denies having any chest pain or any cough, no nausea, no vomiting, no abdominal pain or pain to the right heel area. PHYSICAL EXAMINATION: Blood pressure is 107/59 with a pulse of 77, temperature is 98.6. She is 100% on room air. General description is an elderly female, lying in bed in no distress. RESPIRATORY SYSTEM: Unlabored breathing, clear to auscultation. HEART: S1, S2. Regular rate and rhythm. ABDOMEN: Soft, no tenderness. Patient did have a wound to the right heel, which is not taken down to the bone. No significant slough tissue with minimal surround redness. No drainage. DIAGNOSTIC IMPRESSION AND PLAN: Patient with left heel wound with secondary cellulitis of the right leg. The patient is currently covered with vancomycin. Wound culture has been obtained to guide discharge antibiotic therapy and watch clinical course closely. Continue supportive care. MMODL / IJN: [id number] /
--- NOTE | 2019-07-23 11:16 | CDI ---
Documentation Clarification Form Date: 07/23/2019 10:59:21 AM From: Zahra VargasMongeMERON siegel, CCDS Admit Date: 07/18/2019 02:12:00 PM Patient Name: Priya Mars Visit Number: [id number] Discharge Date: ATTENTION: The Clinical Documentation Specialists (CDI) and [facility] Coding Staff appreciate your assistance in clarifying documentation. Please respond to the clarification below the line at the bottom and electronically sign. The CDI & [facility] Coding staff will review the response and follow-up if needed. Please note: Queries are made part of the Legal Health Record. If you have any questions, please contact the author of this message via ITS. Dr. Rene Armijo: Per the 07/18 History & Physical, the patient is admitted with a right foot ulcer w/multiple areas of cellulitis, failed outpatient treatment. The patient also has DM II. It is not stated if the cellulitis is due to the diabetes. History/Risk Factors: IDDM II, Left BKA, Anemia of chronic disease, CVA/TIA, DJD, Chronic gout, ESBL/E Coli. Clinical Indicators: Presented to the ED on 311 with discoloration & blistering of 4th toe on right foot & cellulitis of the right leg. Diagnosed with cellulitis of RLE, right 4th toe blister with known DM II. LAB 07/17: WBC 11.0^, Neut 8.0^, K 3.3*, BUN 30^, Glucose 117^, Calcium 10.7^, Alk Phos 142^. RAD 07/17 Rt foot XR: for suspected right 3rd toe osteomyelitis. Deformities of the 2nd & 3rd proximal phalanges either from prior severe arthropathy, infection or fracture. Diffuse soft tissue swelling dorsal midfoot. Severe deg change 1st metatarsophalangeal joint. Skin ulceration plantar lateral heel. 07/21 Bone scan: Cellulitis. Treatment: 07/17: IV Rocephin, IV Vanco. 07/18 Insulin sq, PO Metformin, IV Vancomycin. In order to capture the severity of Illness and necessary documentation specificity, please clarify: Please clarify if the following body system complications or specific manifestations are related to the diabetes, please choose all that apply: Hyperglycemia Right Lower Leg Cellulitis Other condition Unable to determine (Last Revision: February 2017) diabetic foot ulceration with resulting acute cellulitis MTDD
[2019-07-23 12:00] LABS: Glucose,Whole Blood 100 mg/dL (75-99)
[2019-07-23] MEDS: SODIUM CHLORIDE 0.9% 1,000 ML IV SCH (12:05)
[2019-07-23 12:15] LABS: Erythrocyte Sedimentation Rate 70 mm/hr (0-20)
--- NOTE | 2019-07-23 16:48 | P.PN ---
Subjective Progress Note Date: 07/23/19 This a 58-year-old female with history of CVA/TIA, diabetes mellitus, hypertension, hyperlipidemia, osteoarthritis peripheral vascular disease, chronic gout, chronic right heel wound-follows at the wound care clinic, ESBL- urine, ongoing nicotine dependence, depression, anxiety, presented to the ER as advised by Dr. Hunt. Patient had noticed discoloration, blistering of the right foot, fourth toe, swelling, warmness without odor or drainage, accompanied by throbbing/spasms. Afebrile, WBC 11. Potassium 3.3, supplemented now within normal limits, BUN 30, creatinine 0.75. Blood sugars ranging 117-190 on admission. Lactic acid 1.5, magnesium 1.7. Cultures obtained. Initiated on vancomycin IV antibiotics. Vascular , infectious disease consulted. 07/20/2019 maintained on vancomycin as per infectious disease. Continues on gentle IV fluid hydration. Complains of spasming of the right lower extremity. Magnesium currently 1.5 , Blood sugars better controlled. Afebrile. Cardiology/Dr. Saez consulted regarding possible intervention./angioplasty. Denies chest pain, palpitations or shortness of breath. 07/23/2019completed bone scan yesterday reporting cellulitis, arthritic changes with uptake involving the second and third digits likely related to previous trauma possible,osteomyelitis seems less likely .afebrile,normal WBC.blood sugars controlled.wound cultures pending. denies chest pain, palpitations or shortness of breath. Objective - Vital Signs Vital signs: Vital Signs Temp 98.2 F 07/23/19 13:50 Pulse 66 07/23/19 13:50 Resp 17 07/23/19 13:50 BP 93/57 07/23/19 13:50 Pulse Ox 95 07/23/19 13:50 Intake & Output 07/22/19 07/23/19 07/23/19 18:59 06:59 18:59 Intake Total 125 580 Output Total 300 Balance -175 580 Intake: Intake, IV Titration 125 Amount Vancomycin 750 mg In 125 Sodium Chloride 0.9% 250 ml @ 125 mls/hr IVPB Q12H EUGENIO Rx#:[id number] Oral 580 Output: Urine 300 Other: Voiding Method Bedpan Bedpan Diaper Diaper # Voids 2 1 - Exam VITAL SIGNS: As above GENERAL: Sitting up at side of bed, no acute distress HEENT: Conjunctivae normal. eyes normal. Oral mucosa moist NECK: No JVD. No thyroid enlargement. No LNs CARDIOVASCULAR: S1, S2 regular..No murmur RESPIRATION: Breath sounds diminished in the bases. No rhonchi,crackles or wheez ing ABDOMEN: Soft, nontender . No guarding. no masses palpable. No ascites, No hepatosplenomegaly.Bowel sounds heard. LEGS: Left BKA, right lower extremity/right foot dressing clean dry and intact, Doppler Dp pulse. PSYCHIATRY: Alert and oriented X3, mood and affect normal. NERVOUS SYSTEM: Cranial N 2-12 grossly normal. Diffuse weakness No focal deficits. Strength and sensation grossly intact.. Skin: no rash Microbiology 07/18/19 12:52 Blood Blood Culture - Preliminary No Growth after 120 hours 07/22/19 20:00 Foot - Right Gram Stain - Preliminary 07/22/19 20:00 Foot - Right Wound Culture - Preliminary 07/22/19 20:00 Foot - Right Anaerobic Culture - Preliminary - Labs CBC & Chem 7: 07/23/19 07:32 07/23/19 07:32 Labs: Abnormal Lab Results - Last 24 Hours (Table) 07/22/19 07/22/19 07/23/19 Range/Units 16:36 20:51 07:32 RBC 3.71 L (3.80-5.40) m/uL Hgb 10.3 L (11.4-16.0) gm/dL Hct 32.6 L (34.0-46.0) % ESR 70 H (0-20) mm/hr BUN (7-17) mg/dL POC Glucose (mg/dL) 111 H 155 H (75-99) mg/dL C-Reactive Protein (<10.0) mg/L 07/23/19 07/23/19 Range/Units 07:32 11:57 RBC (3.80-5.40) m/uL Hgb (11.4-16.0) gm/dL Hct (34.0-46.0) % ESR (0-20) mm/hr BUN 43 H (7-17) mg/dL POC Glucose (mg/dL) 100 H (75-99) mg/dL C-Reactive Protein 14.4 H (<10.0) mg/L Microbiology - Last 24 Hours (Table) 07/18/19 12:52 Blood Culture - Preliminary Blood No Growth after 120 hours 07/22/19 20:00 Gram Stain - Preliminary Foot - Right Wound Culture - Preliminary 07/22/19 20:00 Anaerobic Culture - Preliminary Foot - Right Assessment and Plan Assessment: Cellulitis of right lower extremity, right fourth toe blister,chronic right lateral heel wound ,failure of outpatient treatment,bone scan reporting no definite conclusive evidence of osteomyelitis Peripheral vascular disease status post revascularization Diabetes mellitus type 2 Left BKA Hyperkalemia Hypomagnesemia Hypertension Severe pulmonary hypertension Moderate to severe tricuspid regurgitation Dyslipidemia History of CVA, TIA Chronic gout Obesity, BMI 20.3 Ongoing nicotine dependence Plan: Continue on current medication regime ,monitoring and symptomatic treatment. antibiotics as per ID, wound cultures pending. subacute rehab at discharge. The impression and plan of care has been dictated as directed. : I performed a history and examination of this patient, discussed the same with the dictator. I agree with the dictator's note ,documented as a scribe. Any additional findings or plans will be noted.
[2019-07-23 16:52] LABS: Glucose,Whole Blood 177 mg/dL (75-99)
[2019-07-23 20:17] LABS: Glucose,Whole Blood 153 mg/dL (75-99)
[2019-07-23] MEDS: ATORVASTATIN 20 MG TAB PO SCH (20:39)
[2019-07-23] MEDS: INSULIN DETEMIR (LEVEMIR) 100 UNIT/ML SYR SQ SCH (20:39)
--- NOTE | 2019-07-23 22:57 | PN ---
PROGRESS NOTE DATE OF SERVICE: 07/23/2019 REASON FOR FOLLOWUP: Right heel wound with secondary cellulitis. INTERVAL HISTORY: The patient is currently afebrile. She has been breathing comfortably. Denies having any chest pain or cough or any worsening pain to the right heel area. No diarrhea. PHYSICAL EXAMINATION: Blood pressure 94/55 with a pulse of 70, temperature 97. She is 100% on room air. General description is a middle-aged female up in the bed in no distress. RESPIRATORY SYSTEM: Unlabored breathing. Clear to auscultation anteriorly. HEART: S1, S2. Regular rate and rhythm. ABDOMEN: Soft. No tenderness. Right heel wound is currently dressed up. No obvious drainage on the dressing. LABS: Hemoglobin is 10.3, white count 8.1., creatinine 0.75. Bone scan has been negative for osteomyelitis. Wound culture is currently pending. DIAGNOSTIC IMPRESSION AND PLAN: Patient with a right heel wound with secondary cellulitis. Osteomyelitis has been ruled out. Patient is covered with vancomycin. Will wait for the culture to finalize to determine discharge antibiotics. Continue with supportive care. MMODL / IJN: [id number] / BILL
[2019-07-24] MEDS: CYCLOBENZAPRINE 10 MG TAB PO PRN ×2 (00:14→23:13)
[2019-07-24] MEDS: traMADol 50 MG TAB PO PRN ×4 (00:14→23:13)
[2019-07-24] MEDS: VANCOMYCIN 750 MG in SODIUM CHLORIDE 0.9% 250 ML IVPB SCH ×2 (03:45→14:57)
[2019-07-24 06:53] LABS: Glucose,Whole Blood 91 mg/dL (75-99)
[2019-07-24 07:43] LABS: Basophils # (A) 0.1 k/uL (0-0.2); Basophils % (A) 1 %; Eosinophils # (A) 0.3 k/uL (0-0.7); Eosinophils % (A) 3 %; HCT 33.4 % (34.0-46.0); Lymphocytes # (A) 2.3 k/uL (1.0-4.8); Lymphocytes % (A) 27 %; MCH 26.8 pg (25.0-35.0); MCHC 29.9 g/dL (31.0-37.0); MCV 89.5 fL (80.0-100.0); Mean Platelet Volume 8.2; Monocytes # (A) 0.6 k/uL (0-1.0); Monocytes % (A) 7 %; Neutrophils # (A) 4.9 k/uL (1.3-7.7); Neutrophils % (A) 58 %; Platelet Count 271 k/uL (150-450); RBC 3.73 m/uL (3.80-5.40); RDW 15.5 % (11.5-15.5); WBC 8.3 k/uL (3.8-10.6)
[2019-07-24 07:51] LABS: Calcium 9.7 mg/dL (8.4-10.2); Potassium 4.4 mmol/L (3.5-5.1)
[2019-07-24] MEDS: INSULIN ASPART (NovoLOG) 100 UNIT/ML VIAL SQ SCH ×4 (08:07→20:34)
[2019-07-24] MEDS: metFORMIN 500 MG TAB PO SCH ×2 (08:28→21:05)
[2019-07-24] MEDS: GABAPENTIN 100 MG CAP PO SCH ×3 (08:28→23:13)
[2019-07-24] MEDS: ALLOPURINOL 300 MG TAB PO SCH (08:28)
[2019-07-24] MEDS: ATENOLOL 50 MG TAB PO SCH (08:28)
[2019-07-24] MEDS: COLCHICINE 0.6 MG EACH PO SCH (08:28)
[2019-07-24] MEDS: CLOPIDOGREL 75 MG TAB PO SCH (08:29)
[2019-07-24] MEDS: CITALOPRAM HYDROBROMIDE 20 MG TAB PO SCH (08:29)
[2019-07-24] MEDS: POTASSIUM CHLORIDE ER 20 MEQ TAB.ER PO SCH ×2 (08:29→21:05)
[2019-07-24] MEDS: HEPARIN SODIUM,PORCINE 5,000 UNIT/ML 1 ML VIAL SQ SCH ×2 (08:30→21:05)
[2019-07-24] MEDS: FUROSEMIDE 40 MG TAB PO SCH (08:30)
[2019-07-24] MEDS: LISINOPRIL 20 MG TAB PO SCH (08:30)
[2019-07-24 11:53] LABS: Glucose,Whole Blood 96 mg/dL (75-99)
[2019-07-24] MEDS: SODIUM CHLORIDE 0.9% 1,000 ML IV SCH (13:17)
--- NOTE | 2019-07-24 15:24 | P.PN ---
Subjective Progress Note Date: 07/24/19 This a 58-year-old female with history of CVA/TIA, diabetes mellitus, hypertension, hyperlipidemia, osteoarthritis peripheral vascular disease, chronic gout, chronic right heel wound-follows at the wound care clinic, ESBL- urine, ongoing nicotine dependence, depression, anxiety, presented to the ER as advised by Dr. Hunt. Patient had noticed discoloration, blistering of the right foot, fourth toe, swelling, warmness without odor or drainage, accompanied by throbbing/spasms. Afebrile, WBC 11. Potassium 3.3, supplemented now within normal limits, BUN 30, creatinine 0.75. Blood sugars ranging 117-190 on admission. Lactic acid 1.5, magnesium 1.7. Cultures obtained. Initiated on vancomycin IV antibiotics. Vascular , infectious disease consulted. 07/20/2019 maintained on vancomycin as per infectious disease. Continues on gentle IV fluid hydration. Complains of spasming of the right lower extremity. Magnesium currently 1.5 , Blood sugars better controlled. Afebrile. Cardiology/Dr. Saez consulted regarding possible intervention./angioplasty. Denies chest pain, palpitations or shortness of breath. 07/23/2019completed bone scan yesterday reporting cellulitis, arthritic changes with uptake involving the second and third digits likely related to previous trauma possible,osteomyelitis seems less likely .afebrile,normal WBC.blood sugars controlled.wound cultures pending. denies chest pain, palpitations or shortness of breath. 07/24/2019 angiogram one month ago with no further vascular intervention is recommended at this time as per Dr. Saez/cardiology. Cultures pending. T-max 99.2, WBC within normal limits. Objective - Vital Signs Vital signs: Vital Signs Temp 97.9 F 07/24/19 07:45 Pulse 61 07/24/19 14:11 Resp 16 07/24/19 07:45 BP 108/71 07/24/19 07:45 Pulse Ox 100 07/24/19 07:45 Intake & Output 07/23/19 07/24/19 07/24/19 18:59 06:59 18:59 Intake Total 580 580 Balance 580 580 Intake: Oral 580 580 Other: Voiding Method Bedpan Bedpan Diaper Diaper Diaper # Voids 1 2 - Exam VITAL SIGNS: As above GENERAL: Sitting up at side of bed, no acute distress HEENT: Conjunctivae normal. eyes normal. Oral mucosa moist NECK: No JVD. No thyroid enlargement. No LNs CARDIOVASCULAR: S1, S2 regular..No murmur RESPIRATION: Breath sounds diminished in the bases. No rhonchi,crackles or wheezing ABDOMEN: Soft, nontender . No guarding. no masses palpable. No ascites, No hepatosplenomegaly.Bowel sounds heard. LEGS: Left BKA, right lower extremity/right foot dressing clean dry and intact, Doppler Dp pulse. PSYCHIATRY: Alert and oriented X3, mood and affect normal. NERVOUS SYSTEM: Cranial N 2-12 grossly normal. Diffuse weakness No focal deficits. Strength and sensation grossly intact.. Skin: no rash Microbiology 07/18/19 12:52 Blood Blood Culture - Final No Growth after 144 hours 07/22/19 20:00 Foot - Right Gram Stain - Preliminary 07/22/19 20:00 Foot - Right Wound Culture - Preliminary 07/22/19 20:00 Foot - Right Anaerobic Culture - Preliminary - Labs CBC & Chem 7: 07/24/19 07:25 07/24/19 07:25 Labs: Abnormal Lab Results - Last 24 Hours (Table) 07/23/19 07/23/19 07/24/19 Range/Units 16:43 20:14 07:25 RBC 3.73 L (3.80-5.40) m/uL Hgb 10.0 L (11.4-16.0) gm/dL Hct 33.4 L (34.0-46.0) % MCHC 29.9 L (31.0-37.0) g/dL BUN (7-17) mg/dL POC Glucose (mg/dL) 177 H 153 H (75-99) mg/dL 07/24/19 Range/Units 07:25 RBC (3.80-5.40) m/uL Hgb (11.4-16.0) gm/dL Hct (34.0-46.0) % MCHC (31.0-37.0) g/dL BUN 45 H (7-17) mg/dL POC Glucose (mg/dL) (75-99) mg/dL Microbiology - Last 24 Hours (Table) 07/18/19 12:52 Blood Culture - Final Blood No Growth after 144 hours Assessment and Plan Assessment: Cellulitis of right lower extremity, right fourth toe blister,chronic right lateral heel wound ,failure of outpatient treatment,bone scan reporting no definite conclusive evidence of osteomyelitis Peripheral vascular disease status post revascularization Diabetes mellitus type 2 Left BKA Hyperkalemia Hypomagnesemia Hypertension Severe pulmonary hypertension Moderate to severe tricuspid regurgitation Dyslipidemia History of CVA, TIA Chronic gout Obesity, BMI 20.3 Ongoing nicotine dependence Plan: Continue on current medication regime ,monitoring and symptomatic treatment. Discharge planning in progress pending final wound cultures/antibiotics as per ID. The impression and plan of care has been dictated as directed. : I performed a history and examination of this patient, discussed the same with the dictator. I agree with the dictator's note ,documented as a scribe. Any additional findings or plans will be noted.
[2019-07-24 16:39] LABS: Glucose,Whole Blood 143 mg/dL (75-99)
[2019-07-24] MEDS: INSULIN DETEMIR (LEVEMIR) 100 UNIT/ML SYR SQ SCH ×2 (20:34→21:26)
[2019-07-24 20:41] LABS: Glucose,Whole Blood 109 mg/dL (75-99)
[2019-07-24] MEDS: ATORVASTATIN 20 MG TAB PO SCH (21:05)
--- NOTE | 2019-07-24 23:05 | PN ---
PROGRESS NOTE DATE OF SERVICE: 07/24/2019 REASON FOR FOLLOWUP: Right heel wound and lower extremity cellulitis. INTERVAL HISTORY: The patient is currently afebrile. The patient has been breathing comfortably. Denies having any chest pain, shortness of breath or cough. No vomiting or any diarrhea. PHYSICAL EXAMINATION: Blood pressure is 108/70 with a pulse of 62, temperature 98.7. She is 93% on room air. General description is a middle-aged female lying in bed in no distress. RESPIRATORY SYSTEM: Unlabored breathing. Clear to auscultation anteriorly. HEART: S1, S2. Regular rate and rhythm. ABDOMEN: Soft. No tenderness. Right leg tenderness has resolved. Wound is packed; no drainage. LABS: Hemoglobin is 10, white count of 8.3, creatinine 0.85. Local wound culture shows Eikenella species. DIAGNOSTIC IMPRESSION AND PLAN: Patient with a right heel wound with secondary cellulitis. Culture is positive with Eikenella species. We will discontinue the vancomycin, switch her over to Unasyn 3 grams q.6 hours. Plan to finish therapy with oral Augmentin. Continue supportive care. MMODL / IJN: [id number] /
[2019-07-24] MEDS: AMPICILLIN-SULBACTAM 3 GM in SODIUM CHLORIDE 0.9% 100 ML IVPB SCH (23:24)
[2019-07-25] MEDS ORDERED: VANCOMYCIN TROUGH DUE 1 EACH MISC MISCELLANE ONE (02:00)
[2019-07-25 03:24] LABS: Glucose,Whole Blood 109 mg/dL (75-99)
[2019-07-25] MEDS: ACETAMINOPHEN TAB 325 MG TAB PO PRN (05:31)
[2019-07-25] MEDS: AMPICILLIN-SULBACTAM 3 GM in SODIUM CHLORIDE 0.9% 100 ML IVPB SCH ×4 (05:41→23:39)
[2019-07-25 07:04] LABS: Glucose,Whole Blood 85 mg/dL (75-99)
[2019-07-25] MEDS: INSULIN ASPART (NovoLOG) 100 UNIT/ML VIAL SQ SCH ×4 (08:04→20:35)
--- NOTE | 2019-07-25 09:14 | P.DS ---
Providers Date of admission: 07/18/19 14:12 Expected date of discharge: 07/25/19 Attending physician: Rene Armijo Consults: 07/18/19 14:13 Consult Physician Routine Consulting Provider: Juan Hunt Consult Reason/Comments: Right lower extremity cellulitis Do you want consulting provider notified?: Yes 07/19/19 08:39 Consult Physician Routine Consulting Provider: Kriss Quintero Consult Reason/Comments: uler,cellulitis/gangrene Do you want consulting provider notified?: Yes 07/19/19 16:51 Consult Physician Routine Consulting Provider: Jamir Saez Consult Reason/Comments: patient known to you from previous treatment, possi ble angioplasty RLE Do you want consulting provider notified?: Yes Primary care physician: Rene Armijo [facility] Course: Final Diagnoses: Cellulitis of right lower extremity, right fourth toe blister,chronic right lateral heel wound ,failure of outpatient treatment,bone scan reporting no definite conclusive evidence of osteomyelitis. Wound culture positive for Eikenella species. Peripheral vascular disease status post revascularization Diabetes mellitus type 2 Left BKA Hyperkalemia Hypomagnesemia Hypertension Severe pulmonary hypertension Moderate to severe tricuspid regurgitation Dyslipidemia History of CVA, TIA Chronic gout Obesity, BMI 20.3 Ongoing nicotine dependence Hospital course:This a 58-year-old female with history of CVA/TIA, diabetes mellitus, hypertension, hyperlipidemia, osteoarthritis peripheral vascular disease, chronic gout, chronic right heel wound-follows at the wound care clinic, ESBL-urine, ongoing nicotine dependence, depression, anxiety, presented to the ER as advised by Dr. Hunt. Patient had noticed discoloration, blistering of the right foot, fourth toe, swelling, warmness without odor or drainage, accompanied by throbbing/spasms. Afebrile, WBC 11. Potassium 3.3, supplemented now within normal limits, BUN 30, creatinine 0.75. Blood sugars r anging 117-190 on admission. Lactic acid 1.5, magnesium 1.7. Cultures obtained. Initiated on vancomycin IV antibiotics. Vascular , infectious disease consulted. 07/20/2019 maintained on vancomycin as per infectious disease. Continues on gentle IV fluid hydration. Complains of spasming of the right lower extremity. Magnesium currently 1.5 , Blood sugars better controlled. Afebrile. Cardiol ogy/Dr. Saez consulted regarding possible intervention./angioplasty. Denies chest pain, palpitations or shortness of breath. 07/23/2019completed bone scan yesterday reporting cellulitis, arthritic changes with uptake involving the second and third digits likely related to previous trauma possible,osteomyelitis seems less likely .afebrile,normal WBC.blood sugars controlled.wound cultures pending. denies chest pain, palpitations or shortness of breath. 07/24/2019 angiogram one month ago with no further vascular intervention is recommended at this time as per Dr. Saez/cardiology. Cultures pending. T-max 99.2, WBC within normal limits. Wound culture positive for Eikenella species. Antibiotics adjusted as per ID. Maintained on oral Lasix for extremity edema as per cardiology, echo reporting normal EF. Significant clinical improvement. Patient will be discharged to subacute rehab pending final ID clearance. DC recommendations/antibiotic. - Exam GENERAL: Sitting up at side of bed, no acute distress CARDIOVASCULAR: S1, S2 regular.No murmur RESPIRATION: Breath sounds diminished in the bases. No rhonchi,crackles or wheezing ABDOMEN: Soft, nontender . No guarding. no masses palpable.Bowel sounds heard. LEGS: Left BKA, right lower extremity/right foot dressing clean dry and intact, Doppler Dp pulse. NERVOUS SYSTEM: No focal deficits. The impression and plan of care has been dictated as directed. : I performed a history and examination of this patient, discussed the same with the dictator. I agree with the dictator's note ,documented as a scribe. Any additional findings or plans will be noted. Patient Condition at Discharge: Stable Plan - Discharge Summary Discharge Rx Participant: Yes New Discharge Prescriptions: New Furosemide [Lasix] 40 mg PO DAILY #10 tablet Gabapentin [Neurontin] 200 mg PO TID #18 cap traMADol HCl [Ultram] 50 mg PO TID PRN #9 tab PRN Reason: MODERATE TO SEVERE Pain Continue Insulin Glargine,Hum.rec.anlog [Lantus Solostar] 25 unit SQ HS Colchicine [Colcrys] 0.6 mg PO DAILY Allopurinol [Zyloprim] 300 mg PO QAM Enalapril [Vasotec] 20 mg PO BID Atenolol [Tenormin] 50 mg PO DAILY Citalopram Hydrobromide [CeleXA] 40 mg PO DAILY Atorvastatin [Lipitor] 20 mg PO HS Clopidogrel Bisulfate [Plavix] 75 mg PO DAILY Potassium Chloride [Klor-Con 20] 20 meq PO BID Cyclobenzaprine [Flexeril] 10 mg PO DAILY PRN PRN Reason: Pain metFORMIN HCL 500 mg PO BID Discontinued Gabapentin [Neurontin] 200 mg PO TID #9 capsule Hydrochlorothiazide [Hydrodiuril] 25 mg PO BID traMADol HCL [Ultram] 50 mg PO TID PRN PRN Reason: Pain Discharge Medication List Insulin Glargine,Hum.rec.anlog [Lantus Solostar] 25 unit SQ HS 03/29/17 [History] Allopurinol [Zyloprim] 300 mg PO QAM 10/21/17 [History] Colchicine [Colcrys] 0.6 mg PO DAILY 10/21/17 [History] Enalapril [Vasotec] 20 mg PO BID 02/27/19 [History] Atenolol [Tenormin] 50 mg PO DAILY 04/25/19 [History] Atorvastatin [Lipitor] 20 mg PO HS 04/25/19 [History] Citalopram Hydrobromide [CeleXA] 40 mg PO DAILY 04/25/19 [History] Clopidogrel Bisulfate [Plavix] 75 mg PO DAILY 06/01/19 [History] Potassium Chloride [Klor-Con 20] 20 meq PO BID 06/01/19 [History] Cyclobenzaprine [Flexeril] 10 mg PO DAILY PRN 06/20/19 [History] metFORMIN HCL 500 mg PO BID 07/18/19 [History] Furosemide [Lasix] 40 mg PO DAILY #10 tablet 07/25/19 [Rx] Gabapentin [Neurontin] 200 mg PO TID #18 cap 07/25/19 [Rx] traMADol HCl [Ultram] 50 mg PO TID PRN #9 tab 07/25/19 [Rx] Follow up Appointment(s)/Referral(s): Rene Armijo DO [Primary Care Provider] - 3 Days Jamir Saez MD [STAFF PHYSICIAN] - 2 Weeks Activity/Diet/Wound Care/Special Instructions: Pending ID clearance/DC antibiotic Further evaluation of Lasix outpatient pending evaluation of extremity edema. CBC, BMP in 3 days
[2019-07-25] MEDS: ATENOLOL 50 MG TAB PO SCH (10:11)
[2019-07-25] MEDS: CITALOPRAM HYDROBROMIDE 20 MG TAB PO SCH (10:11)
[2019-07-25] MEDS: GABAPENTIN 100 MG CAP PO SCH ×3 (10:11→23:34)
[2019-07-25] MEDS: ALLOPURINOL 300 MG TAB PO SCH (10:11)
[2019-07-25] MEDS: metFORMIN 500 MG TAB PO SCH ×2 (10:11→20:35)
[2019-07-25] MEDS: CLOPIDOGREL 75 MG TAB PO SCH (10:11)
[2019-07-25] MEDS: traMADol 50 MG TAB PO PRN ×3 (10:12→23:34)
[2019-07-25] MEDS: LISINOPRIL 20 MG TAB PO SCH (10:12)
[2019-07-25] MEDS: FUROSEMIDE 40 MG TAB PO SCH (10:12)
[2019-07-25] MEDS: HEPARIN SODIUM,PORCINE 5,000 UNIT/ML 1 ML VIAL SQ SCH ×2 (10:13→20:36)
[2019-07-25] MEDS: POTASSIUM CHLORIDE ER 20 MEQ TAB.ER PO SCH ×2 (10:13→20:35)
[2019-07-25] MEDS: COLCHICINE 0.6 MG EACH PO SCH (10:41)
[2019-07-25 11:27] LABS: Glucose,Whole Blood 105 mg/dL (75-99)
[2019-07-25 16:38] LABS: Glucose,Whole Blood 97 mg/dL (75-99)
--- NOTE | 2019-07-25 16:38 | PN ---
PROGRESS NOTE DATE OF SERVICE: 07/25/2019 REASON FOR FOLLOWUP: Right heel wound infection. INTERVAL HISTORY: The patient is currently afebrile. The patient has been breathing comfortably. The patient denies having any chest pain or shortness of breath or cough. No nausea, vomiting, abdominal pain or pain to the right heel wound area. PHYSICAL EXAMINATION: Blood pressure is 96/59 with a pulse of 64, temperature 97.4. She is 100% on room air. General description is a middle-aged female lying in bed in no distress. RESPIRATORY SYSTEM: Unlabored breathing. Clear to auscultation anteriorly. HEART: S1, S2. Regular rate and rhythm. ABDOMEN: Soft. No tenderness. EXTREMITIES: No edema of the feet. LABS: No new labs have been obtained today. DIAGNOSTIC IMPRESSION AND PLAN: Patient with a right heel wound with secondary cellulitis, culture positive for Eikenella with no evidence of any osteomyelitis. If the patient is going to a rehab, will see if the patient will continue with IV Unasyn 3 grams q.8 hours for about a week instead of oral Augmentin. Will discuss further with the admitting team. Continue with supportive care. MMODL / IJN: [id number] /
[2019-07-25 20:13] LABS: Glucose,Whole Blood 149 mg/dL (75-99)
[2019-07-25] MEDS: ATORVASTATIN 20 MG TAB PO SCH (20:35)
[2019-07-25] MEDS: INSULIN DETEMIR (LEVEMIR) 100 UNIT/ML SYR SQ SCH (20:36)
[2019-07-25] MEDS: SODIUM CHLORIDE 0.9% 1,000 ML IV SCH (20:43)
[2019-07-25] MEDS: CYCLOBENZAPRINE 10 MG TAB PO PRN (23:34)
[2019-07-26] MEDS: AMPICILLIN-SULBACTAM 3 GM in SODIUM CHLORIDE 0.9% 100 ML IVPB SCH ×2 (05:26→12:59)
[2019-07-26 06:53] LABS: Glucose,Whole Blood 78 mg/dL (75-99)
[2019-07-26 08:01] VITALS: RESP 16
[2019-07-26] MEDS: INSULIN ASPART (NovoLOG) 100 UNIT/ML VIAL SQ SCH ×2 (08:57→12:59)
[2019-07-26] MEDS: HEPARIN SODIUM,PORCINE 5,000 UNIT/ML 1 ML VIAL SQ SCH (08:58)
[2019-07-26] MEDS: GABAPENTIN 100 MG CAP PO SCH ×2 (08:58→16:29)
[2019-07-26] MEDS: FUROSEMIDE 40 MG TAB PO SCH (08:58)
[2019-07-26] MEDS: LISINOPRIL 20 MG TAB PO SCH (08:58)
[2019-07-26] MEDS: ALLOPURINOL 300 MG TAB PO SCH (08:59)
[2019-07-26] MEDS: CLOPIDOGREL 75 MG TAB PO SCH (08:59)
[2019-07-26] MEDS: ATENOLOL 50 MG TAB PO SCH (08:59)
[2019-07-26] MEDS: metFORMIN 500 MG TAB PO SCH (08:59)
[2019-07-26] MEDS: CITALOPRAM HYDROBROMIDE 20 MG TAB PO SCH (09:00)
[2019-07-26] MEDS: POTASSIUM CHLORIDE ER 20 MEQ TAB.ER PO SCH (09:00)
[2019-07-26] MEDS: COLCHICINE 0.6 MG EACH PO SCH (09:00)
[2019-07-26 11:44] LABS: Glucose,Whole Blood 100 mg/dL (75-99)
[2019-07-26 15:34] VITALS: BP 95/61; PULSE 72; TEMP 98
[2019-07-26] MEDS: SODIUM CHLORIDE 0.9% 1,000 ML IV SCH (16:24)
[2019-07-26] MEDS: traMADol 50 MG TAB PO PRN (16:29)
--- NOTE | 2019-07-26 17:11 | PN ---
PROGRESS NOTE DATE OF SERVICE: 07/26/2019. REASON FOR FOLLOWUP: Right heel wound with secondary cellulitis. INTERVAL HISTORY: The patient is currently afebrile. She has been breathing comfortably. Denies having any chest pain or any cough. No nausea, vomiting, abdominal pain or any worsening pain to the right heel wound area. PHYSICAL EXAMINATION: Blood pressure 105/67 with a pulse of 61, temperature 98. She is 98% on room air. General description is a middle-aged female lying in bed in no distress. RESPIRATORY SYSTEM: Unlabored breathing. Clear to auscultation anteriorly. HEART: S1, S2. Regular rate and rhythm. ABDOMEN: Soft. No tenderness. Right heel wound is currently dressed up. No obvious drainage on the dressing. LABS: No new labs have been obtained today. DIAGNOSTIC IMPRESSION AND PLAN: Patient with right heel wound with secondary cellulitis. Culture has been positive for Eikenella. Currently covered with Unasyn. Will discuss with the egg caser if she can be given IV Unasyn on discharge in the [facility], for which a midline would be placed. Continue with supportive care. MMODL / IJN: [id number] /
--- NOTE | 2019-07-30 09:56 | CDI ---
Documentation Clarification Form Date: 07/30/19 From: Marychuy Kate CCS Phone: If you have a question about this query, please contact Priya Putnam, Social Worker [employer] at [phone] between 8am and 5pm. Admit Date: 07/18/19 Discharge Date:07/26/19 Patient Name: Priya Mars Visit Number: [id number] ATTENTION: The Clinical Documentation Specialists (CDI) and [facility] Coding Staff appreciate your assistance in clarifying documentation. Please respond to the clarification below the line at the bottom and electronically sign. The CDI & [facility] Coding staff will review the response and follow-up if needed. Please note: Queries are made part of the Legal Health Record. If you have any questions, please contact the author of this message via ITS. Dear Dr. Armijo, The diagnosis pressure injury to coccyx stage II was documented in the wound care notes, but is not noted in subsequent documentation. History/Risk Factors: Diabetic foot ulcer, Cellulitis, BKA, PVD, Gangrene Wound Care: 07/18-07/24 Treatment: Medicated gel and ointment Please clarify if the pressure injury to coccyx stage II was Present/active this admission Treated and resolved this admission Ruled out Other, please specify Clinically unable to determine present on this admission stage 2 sacral pressure ulcer under treatment. MTDD
--- NOTE | 2019-07-30 10:06 | CDI ---
Documentation Clarification Form Date: 07/30/19 From: Marychuy Kate CCS Phone: If you have a question about this query, please contact Priya Putnam, [employer] at [phone] between 8am and 5pm. Admit Date: 07/18/19 Discharge Date:07/26/19 Patient Name: Priya Mars Visit Number: [id number] ATTENTION: The Clinical Documentation Specialists (CDI) and [facility] Coding Staff appreciate your assistance in clarifying documentation. Please respond to the clarification below the line at the bottom and electronically sign. The CDI & [facility] Coding staff will review the response and follow-up if needed. Please note: Queries are made part of the Legal Health Record. If you have any questions, please contact the author of this message via ITS. Dear Dr. Armijo, The diagnosis gangrene was documented in the ED, but is not noted in subsequent documentation. History/Risk Factors: Diabetic ulcer, Cellulitis, HTN, PVD Clinical Indicators: She has gangrene of the right third toe with minimal blistering Treatment: Rocephin 1,000 mg IV, Unasyn 3 gm IVPB Q6HR, Vancomycin 1,250 mg IVPB Q 12 HR Please clarify if the gangrene was Present/active this admission Treated and resolved this admission Ruled out Other, please specify Clinically unable to determine gangrene present/active this admission MTDD
== END 2019-07-26 17:27 | DRG 300 ==
LOC: EC 12:09 → 6NMEDSUR 14:12 → 4SSUR 17:29
PROVIDERS: ADMIT Family Medicine; ATTEND Family Medicine
DX: E11.52 Type 2 diabetes mellitus with diabetic peripheral angiopathy with gangrene (principal); I70.261 Atherosclerosis of native arteries of extremities with gangrene, right leg; L03.115 Cellulitis of right lower limb; L97.411 Non-pressure chronic ulcer of right heel and midfoot limited to breakdown of skin; I27.20 Pulmonary hypertension, unspecified; L89.152 Pressure ulcer of sacral region, stage 2; D63.8 Anemia in other chronic diseases classified elsewhere; L97.511 Non-pressure chronic ulcer of other part of right foot limited to breakdown of skin; L97.519 Non-pressure chronic ulcer of other part of right foot with unspecified severity; E11.621 Type 2 diabetes mellitus with foot ulcer; I10 Essential (primary) hypertension; E78.5 Hyperlipidemia, unspecified; M19.90 Unspecified osteoarthritis, unspecified site; M1A.9XX0 Chronic gout, unspecified, without tophus (tophi); F32.9 Major depressive disorder, single episode, unspecified; F17.210 Nicotine dependence, cigarettes, uncomplicated; F41.9 Anxiety disorder, unspecified; E83.42 Hypomagnesemia; E66.9 Obesity, unspecified; I70.0 Atherosclerosis of aorta; I08.1 Rheumatic disorders of both mitral and tricuspid valves; E87.6 Hypokalemia; G56.00 Carpal tunnel syndrome, unspecified upper limb; R60.0 Localized edema; Z71.3 Dietary counseling and surveillance; Z79.899 Other long term (current) drug therapy; Z79.02 Long term (current) use of antithrombotics/antiplatelets; Z79.84 Long term (current) use of oral hypoglycemic drugs; Z86.73 Personal history of transient ischemic attack (TIA), and cerebral infarction without residual deficits; Z90.710 Acquired absence of both cervix and uterus; Z89.512 Acquired absence of left leg below knee; Z68.28 Body mass index [BMI] 28.0-28.9, adult; Z95.820 Peripheral vascular angioplasty status with implants and grafts; Z98.890 Other specified postprocedural states; Z88.2 Allergy status to sulfonamides; Z82.49 Family history of ischemic heart disease and other diseases of the circulatory system; Z82.3 Family history of stroke; Z83.438 Family history of other disorder of lipoprotein metabolism and other lipidemia
CPT/HCPCS: 36415; 78315; 80048; 80053; 80202; 82565; 83036; 83605; 83735; 84132; 84550; 85025; 85610; 85652; 85730; 86140; 87040; 87070; 87075; 87205; 93005; 93306; 96365; 96366; 96375; 99285

== ENCOUNTER 2019-10-01 14:34 | Inpatient (IN) | payer OTHER ==
[2019-10-01] MEDS ORDERED: SODIUM CHLORIDE 0.9% 1,000 ML IV ONE ×3 (15:08→17:05)
[2019-10-01] MEDS ORDERED: MORPHINE SULFATE 2 MG/ML SYRINGE IVP ONE (15:14)
--- NOTE | 2019-10-01 15:16 | ED ---
Fall HPI <Meek Narvaez - Last Filed: 10/01/19 18:24> - General Source: EMS, RN notes reviewed, old records reviewed Mode of arrival: EMS <Didi Glover - Last Filed: 10/01/19 18:55> - General Chief Complaint: Fall Stated Complaint: fall Time Seen by Provider: 10/01/19 14:50 - History of Present Illness Initial Comments: Patient is a 38-year-old female presents for his first today which is complaint of falling from her bed on Tuesday morning. She reports that she was too weak and unable to get up from that position. Patient states that she has been wedged between her bed and furniture since that time. She complains of some back pain and just generalized weakness. She states that she is on Plavix and has multiple bruises. Patient is a left below the knee amputee does typically use a prosthetic. She also complains of a contracture in her right leg and has multiple bruises over her right leg that are chronic prior to this fall. Patient states that she is very thirsty. She reports that she has not ate in the past 2 days as she was lying on the ground. Patient reports that she was found by her son who called EMS and brought Patient to the emergency room today. He does typically live by herself. (Didi Glover) - Related Data Home Medications Medication Instructions Recorded Confirmed Insulin Glargine,Hum.rec.anlog 25 unit SQ HS 03/29/17 07/18/19 [Lantus Solostar] Allopurinol [Zyloprim] 300 mg PO QA 10/21/17 07/18/19 Colchicine [Colcrys] 0.6 mg PO DAILY 10/21/17 07/18/19 Enalapril [Vasotec] 20 mg PO BID 02/27/19 07/18/19 Atenolol [Tenormin] 50 mg PO DAILY 04/25/19 07/18/19 Atorvastatin [Lipitor] 20 mg PO HS 04/25/19 07/18/19 Citalopram Hydrobromide [CeleXA] 40 mg PO DAILY 04/25/19 07/18/19 Clopidogrel Bisulfate [Plavix] 75 mg PO DAILY 06/01/19 07/18/19 Potassium Chloride [Klor-Con 20] 20 meq PO BID 06/01/19 07/18/19 Cyclobenzaprine [Flexeril] 10 mg PO DAILY PRN 06/20/19 07/18/19 metFORMIN HCL 500 mg PO BID 07/18/19 07/18/19 Previous Rx's Medication Instructions Recorded Furosemide [Lasix] 40 mg PO DAILY #10 tablet 07/25/19 traMADol HCl [Ultram] 50 mg PO TID PRN #9 tab 07/25/19 Amoxic-Pot Clav 875-125Mg 1 tab PO BID #28 tab 07/26/19 [Augmentin 875-125] Gabapentin [Neurontin] 300 mg PO TID #9 capsule 07/26/19 Allergies Allergy/AdvReac Type Severity Reaction Status Date / Time sulfamethoxazole Allergy Itching Verified 10/01/19 14:43 [From Bactrim] trimethoprim [From Bactrim] Allergy Itching Verified 10/01/19 14:43 Review of Systems ROS Other: All systems not noted in ROS Statement are negative. <Meek Narvaez - Last Filed: 10/01/19 18:24> ROS Other: All systems not noted in ROS Statement are negative. <Didi Glover - Last Filed: 10/01/19 18:55> ROS Statement: Those systems with pertinent positive or pertinent negative responses have been documented in the HPI. Past Medical History Past Medical History: CVA/TIA, Diabetes Mellitus, Hyperlipidemia, Hypertension, Osteoarthritis (OA), Vascular Disorder Additional Past Medical History / Comment(s): chronic gout, carpal tunnel, TIA 2018-no residual effects. wound on rt heel-has been seen at wound care center 05/28 History of Any Multi-Drug Resistant Organisms: ESBL Date of last positivie culture/infection: 2018 MDRO Source:: urine Past Surgical History: Hysterectomy Additional Past Surgical History / Comment(s): neck surg, left BKA in October 25, & then revision of in December 25. stent rt leg 02/24 Past Anesthesia/Blood Transfusion Reactions: No Reported Reaction Past Psychological History: Depression Smoking Status: Former smoker Past Alcohol Use History: None Reported Past Drug Use History: None Reported - Past Family History Mother Additional Family Medical History / Comment(s): at age 47 from heart defect Father Family Medical History: CVA/TIA, Hyperlipidemia, Hypertension Additional Family Medical History / Comment(s): 2 strokes affected brain stem <Didi Glover - Last Filed: 10/01/19 18:55> General Exam Limitations: no limitations General appearance: alert, in no apparent distress Head exam: Present: atraumatic, normocephalic, normal inspection Eye exam: Present: normal appearance, PERRL, EOMI. Absent: scleral icterus, conjunctival injection, periorbital swelling ENT exam: Present: normal exam, mucous membranes dry, mucous membranes moist. Absent: normal oropharynx Neck exam: Present: normal inspection. Absent: tenderness, meningismus, lymphadenopathy Cardiovascular Exam: Present: regular rate, normal rhythm, normal heart sounds. Absent: systolic murmur, diastolic murmur, rubs, gallop, clicks GI/Abdominal exam: Present: soft, normal bowel sounds. Absent: distended, tenderness, guarding, rebound, rigid Rectal exam: Present: normal inspection, heme (+) stool Extremities exam: Present: normal inspection, full ROM, normal capillary refill, other (Patient is a left below the knee amputee. Multiple bruises at the knee from patient's prosthesis. Patient has a contracture over the right leg with multiple bruises on the right knee. She reports is chronic contracture prior to the fall. Patient has multiple contusions over bilateral forearms. Evidence of multiple healing skin tears over the right forearm. ). Absent: tenderness, pedal edema, joint swelling, calf tenderness Back exam: Present: normal inspection, full ROM Neurological exam: Present: alert, oriented X3, CN II-XII intact Psychiatric exam: Present: normal affect, normal mood Skin exam: Present: warm, dry, intact, normal color. Absent: rash <Didi Glover - Last Filed: 10/01/19 18:55> - General Exam Comments Initial Comments: 58-year-old female. Alert and oriented 3. Patient is generally weak, dehydrated. (Didi Glover) Course Vital Signs 10/01/19 10/01/19 10/01/19 14:38 16:12 17:00 Temperature 97.9 F Pulse Rate 89 99 103 H Respiratory 20 20 18 Rate Blood Pressure 108/49 94/57 97/57 O2 Sat by Pulse 97 100 100 Oximetry 10/01/19 10/01/19 10/01/19 17:30 18:00 18:11 Temperature Pulse Rate 101 H 102 H 103 H Respiratory 20 20 Rate Blood Pressure 86/49 101/41 O2 Sat by Pulse 99 100 Oximetry 10/01/19 10/01/19 18:26 18:32 Temperature Pulse Rate 105 H 104 H Respiratory 20 Rate Blood Pressure 92/52 O2 Sat by Pulse 98 Oximetry Medical Decision Making - Lab Data Result diagrams: 10/01/19 16:06 10/01/19 16:52 <Meek Narvaez - Last Filed: 10/01/19 18:24> - Lab Data Result diagrams: 10/01/19 16:06 10/01/19 16:52 - Radiology Data Radiology results: report reviewed <Didi Glover - Last Filed: 10/01/19 18:55> - Medical Decision Making Patient was reevaluated and reexamined by myself, Dr. Narvaez. Patient resting comfortably in bed. Blood pressure was low. Blood pressure has improved with IV fluids. Patient is anemic and Hemoccult-positive. Transfusion ordered. Consult will be placed for GI. Case was discussed in detail with Dr. Tesfaye, who will consult for critical care in the ICU. Patient given medication for hyperkalemia. Patient given multiple fluid boluses. Patient does have evidence of UTI. Patient will be given IV antibiotics. (Meek Narvaez) Patient 8-year-old female presents emergency Department today with complaint of falling on the ground out of the bed on Tuesday morning and remaining there until today. Patient appears very dehydrated. She just complains of general weakness and back discomfort from her position of being on the floor. Patient has multiple contusions over her arms and knee. Patient's found to be significantly anemic with a hemoglobin of 5.6. Hemoccult was positive. She started on IV fluids and blood. Consult for GI. She was also found to have acute renal failure with elevated CK. Likely dehydrated. We'll consult nephrology. Potassium is elevated at 7.6. Patient had albuterol, calcium, bicarb, and kayexalate. Urinalysis was completed and fully was placed and shows evidence of urinary tract infection likely related to patient's white blood cell count being 16 and septic. She was started on 2 g of Rocephin. This is a critical Patient and Dr. Narvaez was informed and started to contact Dr. Carlisle from ICU. I discussed the case with Pako Quintero from [facility] who accepts the admission. (Didi Glover) - Lab Data Lab Results 10/01/19 10/01/19 10/01/19 Range/Units 16:00 16:06 16:06 WBC 16.0 H (3.8-10.6) k/uL RBC 2.18 L (3.80-5.40) m/uL Hgb 5.8 L* D (11.4-16.0) gm/dL Hct 19.7 L* (34.0-46.0) % MCV 90.2 (80.0-100.0) fL MCH 26.7 (25.0-35.0) pg MCHC 29.6 L (31.0-37.0) g/dL RDW 16.8 H (11.5-15.5) % Plt Count 281 (150-450) k/uL Neutrophils % 89 % Lymphocytes % 6 % Monocytes % 3 % Eosinophils % 1 % Basophils % 0 % Neutrophils # 14.2 H (1.3-7.7) k/uL Lymphocytes # 1.0 (1.0-4.8) k/uL Monocytes # 0.5 (0-1.0) k/uL Eosinophils # 0.2 (0-0.7) k/uL Basophils # 0.0 (0-0.2) k/uL Hypochromasia Marked Anisocytosis Slight PT 10.1 (9.0-12.0) sec INR 1.0 (<1.2) APTT 23.7 (22.0-30.0) sec Sodium (137-145) mmol/L Potassium (3.5-5.1) mmol/L Chloride (98-107) mmol/L Carbon Dioxide (22-30) mmol/L Anion Gap mmol/L BUN (7-17) mg/dL Creatinine (0.52-1.04) mg/dL Est GFR (CKD-EPI)AfAm (>60 ml/min/1.73 sqM) Est GFR (CKD-EPI)NonAf (>60 ml/min/1.73 sqM) Glucose (74-99) mg/dL Calcium (8.4-10.2) mg/dL Magnesium (1.6-2.3) mg/dL Total Bilirubin (0.2-1.3) mg/dL AST (14-36) U/L ALT (4-34) U/L Alkaline Phosphatase (38-126) U/L Creatine Kinase (30-135) U/L Troponin I (0.000-0.034) ng/mL NT-Pro-B Natriuret Pep 4310 pg/mL Total Protein (6.3-8.2) g/dL Albumin (3.5-5.0) g/dL Urine Color Urine Appearance (Clear) Urine pH (5.0-8.0) Ur Specific [place] (1.001-1.035) Urine Protein (Negative) Urine Glucose (UA) (Negative) Urine Ketones (Negative) Urine Blood (Negative) Urine Nitrite (Negative) Urine Bilirubin (Negative) Urine Urobilinogen (<2.0) mg/dL Ur Leukocyte Esterase (Negative) Urine RBC (0-5) /hpf Urine WBC (0-5) /hpf Urine WBC Clumps (None) /hpf Ur Squamous Epith Cells (0-4) /hpf Urine Bacteria (None) /hpf Hyaline Casts (0-2) /lpf Stool Occult Blood (Negative) 10/01/19 10/01/19 10/01/19 Range/Units 16:06 16:52 16:52 WBC (3.8-10.6) k/uL RBC (3.80-5.40) m/uL Hgb (11.4-16.0) gm/dL Hct (34.0-46.0) % MCV (80.0-100.0) fL MCH (25.0-35.0) pg MCHC (31.0-37.0) g/dL RDW (11.5-15.5) % Plt Count (150-450) k/uL Neutrophils % % Lymphocytes % % Monocytes % % Eosinophils % % Basophils % % Neutrophils # (1.3-7.7) k/uL Lymphocytes # (1.0-4.8) k/uL Monocytes # (0-1.0) k/uL Eosinophils # (0-0.7) k/uL Basophils # (0-0.2) k/uL Hypochromasia Anisocytosis PT (9.0-12.0) sec INR (<1.2) APTT (22.0-30.0) sec Sodium 140 (137-145) mmol/L Potassium 7.7 H* 7.6 H* (3.5-5.1) mmol/L Chloride 116 H (98-107) mmol/L Carbon Dioxide <5 L* (22-30) mmol/L Anion Gap mmol/L BUN 172 H* (7-17) mg/dL Creatinine 7.46 H* (0.52-1.04) mg/dL Est GFR (CKD-EPI)AfAm 6 (>60 ml/min/1.73 sqM) Est GFR (CKD-EPI)NonAf 6 (>60 ml/min/1.73 sqM) Glucose 109 H (74-99) mg/dL Calcium 9.4 (8.4-10.2) mg/dL Magnesium 1.9 (1.6-2.3) mg/dL Total Bilirubin 0.2 (0.2-1.3) mg/dL AST 32 (14-36) U/L ALT 22 (4-34) U/L Alkaline Phosphatase 88 (38-126) U/L Creatine Kinase 929 H (30-135) U/L Troponin I 0.039 H* (0.000-0.034) ng/mL NT-Pro-B Natriuret Pep pg/mL Total Protein 6.5 (6.3-8.2) g/dL Albumin 4.0 (3.5-5.0) g/dL Urine Color Urine Appearance (Clear) Urine pH (5.0-8.0) Ur Specific [place] (1.001-1.035) Urine Protein (Negative) Urine Glucose (UA) (Negative) Urine Ketones (Negative) Urine Blood (Negative) Urine Nitrite (Negative) Urine Bilirubin (Negative) Urine Urobilinogen (<2.0) mg/dL Ur Leukocyte Esterase (Negative) Urine RBC (0-5) /hpf Urine WBC (0-5) /hpf Urine WBC Clumps (None) /hpf Ur Squamous Epith Cells (0-4) /hpf Urine Bacteria (None) /hpf Hyaline Casts (0-2) /lpf Stool Occult Blood (Negative) 10/01/19 10/01/19 Range/Units 17:07 17:07 WBC (3.8-10.6) k/uL RBC (3.80-5.40) m/uL Hgb (11.4-16.0) gm/dL Hct (34.0-46.0) % MCV (80.0-100.0) fL MCH (25.0-35.0) pg MCHC (31.0-37.0) g/dL RDW (11.5-15.5) % Plt Count (150-450) k/uL Neutrophils % % Lymphocytes % % Monocytes % % Eosinophils % % Basophils % % Neutrophils # (1.3-7.7) k/uL Lymphocytes # (1.0-4.8) k/uL Monocytes # (0-1.0) k/uL Eosinophils # (0-0.7) k/uL Basophils # (0-0.2) k/uL Hypochromasia Anisocytosis PT (9.0-12.0) sec INR (<1.2) APTT (22.0-30.0) sec Sodium (137-145) mmol/L Potassium (3.5-5.1) mmol/L Chloride (98-107) mmol/L Carbon Dioxide (22-30) mmol/L Anion Gap mmol/L BUN (7-17) mg/dL Creatinine (0.52-1.04) mg/dL Est GFR (CKD-EPI)AfAm (>60 ml/min/1.73 sqM) Est GFR (CKD-EPI)NonAf (>60 ml/min/1.73 sqM) Glucose (74-99) mg/dL Calcium (8.4-10.2) mg/dL Magnesium (1.6-2.3) mg/dL Total Bilirubin (0.2-1.3) mg/dL AST (14-36) U/L ALT (4-34) U/L Alkaline Phosphatase (38-126) U/L Creatine Kinase (30-135) U/L Troponin I (0.000-0.034) ng/mL NT-Pro-B Natriuret Pep pg/mL Total Protein (6.3-8.2) g/dL Albumin (3.5-5.0) g/dL Urine Color Yellow Urine Appearance Turbid H (Clear) Urine pH 5.5 (5.0-8.0) Ur Specific [place] 1.015 (1.001-1.035) Urine Protein 2+ H (Negative) Urine Glucose (UA) Negative (Negative) Urine Ketones Trace H (Negative) Urine Blood Moderate H (Negative) Urine Nitrite Negative (Negative) Urine Bilirubin Negative (Negative) Urine Urobilinogen <2.0 (<2.0) mg/dL Ur Leukocyte Esterase Large H (Negative) Urine RBC 9 H (0-5) /hpf Urine WBC >182 H (0-5) /hpf Urine WBC Clumps Many H (None) /hpf Ur Squamous Epith Cells 5 H (0-4) /hpf Urine Bacteria Many H (None) /hpf Hyaline Casts 7 H (0-2) /lpf Stool Occult Blood Positive H (Negative) - Radiology Data CT brain C-spine shows old left cerebellar infarct unchanged. No acute intracranial abnormality. Stroke blacked 3. Previous cervical spine surgery. Spondylitic changes and o'nicole. No acute compression deformity of the lumbar spine seen. Extensive multilevel degenerative disc disease level scoliosis. No gross malalignment or compression deformity of the mid or lower thoracic spine. Upper thoracic spinous suboptimal reviewed. Moderate degenerative change of the spine. Knee x-ray is limited due to contracture. No gross fracture seen. Arthropathy is noted. X-rays negative for acute cardio pulmonary process. (Didi Glover) Disposition <Meek Narvaez - Last Filed: 10/01/19 18:24> Is patient prescribed a controlled substance at d/c from ED?: No Time of Disposition: 18:55 <Didi Glover - Last Filed: 10/01/19 18:55> Clinical Impression: Sepsis, Hyperkalemia, UTI (urinary tract infection), Dehydration, GI bleed, Anemia Disposition: ADMITTED IP TO THIS HOSP Condition: Serious Referrals: Rene Armijo DO [Primary Care Provider] - 1-2 days
--- NOTE | 2019-10-01 16:06 | XR ---
EXAMINATION TYPE: XR chest 2V DATE OF EXAM: 10/01/2019 COMPARISON: 10/21/2017 HISTORY: Fall and weakness TECHNIQUE: Frontal and lateral views of the chest are obtained. FINDINGS: There is no focal air space opacity, pleural effusion, or pneumothorax seen. The cardiac silhouette size is within normal limits. The osseous structures are intact. Mild multilevel degener ative change of the spine. IMPRESSION: No acute cardiopulmonary process.
--- NOTE | 2019-10-01 16:09 | XR ---
EXAMINATION TYPE: XR knee limited RT DATE OF EXAM: 10/01/2019 CLINICAL HISTORY: Pain, bruising, contracture TECHNIQUE: 2 views of the right knee are obtained. COMPARISON: None. FINDINGS: No gross fracture of the right knee is seen however contracture deformity limits evaluation on the frontal view. There is overlap of the femur and tibia on the frontal view and joint space brock rowing cannot be assessed. Osteophyte or bony exostosis is seen in the distal femur on the lateral vi ew with patellofemoral joint space nearing and tibial osteophytes. Moderate atherosclerosis noted. IMPRESSION: Limited exam due to contracture. No gross fracture seen of the right knee. Arthropathy as above.
--- NOTE | 2019-10-01 16:10 | XR ---
EXAMINATION TYPE: XR thoracic spine 2V DATE OF EXAM: 10/01/2019 CLINICAL HISTORY: Fall with mid back pain. TECHNIQUE: Frontal, lateral, and swimmer's view of thoracic spine are obtained. COMPARISON: None. FINDINGS: Moderate degenerative disc disease is seen of the thoracic spine with intervertebral disc s pace height loss and anterior osteophytes. Upper thoracic spine is suboptimally viewed. No gross marianela lignment or compression deformity. Carotid atherosclerosis and presumed postsurgical change of the ce rvical spine are partially visualized. IMPRESSION: No gross malalignment or compression deformity of the mid or lower thoracic spine. Upper thoracic spine is suboptimally viewed. Moderate degenerative change of the spine.
--- NOTE | 2019-10-01 16:12 | XR ---
EXAMINATION TYPE: XR lumbar spine 2 or 3V DATE OF EXAM: 10/01/2019 CLINICAL HISTORY: Fall and back pain TECHNIQUE: Frontal and lateral images of the lumbar spine are obtained. COMPARISON: None FINDINGS: Extensive multilevel degenerative disc disease of the lumbar spine is seen with levoscolios is. Extensive atherosclerosis of the abdominal aorta and its branches. No vertebral body height loss of the lumbar spine. Endplate sclerosis is most pronounced at L3. Multilevel facet arthropathy, inter vertebral disc space narrowing, endplate sclerosis and anterior osteophytes. Diffuse osseous deminera lization. IMPRESSION: No acute compression deformity of the lumbar spine seen. Extensive multilevel degenerati ve disc disease and levoscoliosis.
[2019-10-01 16:18] LABS: Anisocytosis Slight; Basophils % (A) 0 %; Eosinophils # (A) 0.2 k/uL (0-0.7); Eosinophils % (A) 1 %; Hypochromasia Marked; Lymphocytes % (A) 6 %; MCH 26.7 pg (25.0-35.0); MCHC 29.6 g/dL (31.0-37.0); MCV 90.2 fL (80.0-100.0); Monocytes # (A) 0.5 k/uL (0-1.0); Monocytes % (A) 3 %; Neutrophils # (A) 14.2 k/uL (1.3-7.7); Neutrophils % (A) 89 %; Platelet Count 281 k/uL (150-450); RBC 2.18 m/uL (3.80-5.40); RDW 16.8 % (11.5-15.5)
[2019-10-01 16:28] LABS: Prothrombin Time 10.1 sec (9.0-12.0)
[2019-10-01 16:29] LABS: HCT 19.7 % (34.0-46.0); HGB 5.8 gm/dL (11.4-16.0); Partial Thromboplastin Time 23.7 sec (22.0-30.0)
[2019-10-01 16:30] LABS: ALT 22 U/L (4-34); AST 32 U/L (14-36); African American GFR (CKD) 6 (>60 ml/min/1.73 sqM); Alkaline Phosphatase 88 U/L (38-126); Calcium 9.4 mg/dL (8.4-10.2); Chloride 116 mmol/L (98-107); Creatine Kinase 929 U/L (30-135); Glucose 109 mg/dL (74-99); Magnesium 1.9 mg/dL (1.6-2.3); Non-African American GFR(CKD) 6 (>60 ml/min/1.73 sqM); Sodium 140 mmol/L (137-145); Total Bilirubin 0.2 mg/dL (0.2-1.3); Total Protein 6.5 g/dL (6.3-8.2)
[2019-10-01 16:41] LABS: Potassium 7.7 mmol/L (3.5-5.1)
[2019-10-01 16:43] LABS: Blood Urea Nitrogen 172 mg/dL (7-17)
[2019-10-01] MEDS ORDERED: ALBUTEROL NEB (CONC) 2.5 MG/0.5 ML INHALATION ONE (16:46)
[2019-10-01] MEDS ORDERED: INSULIN REGULAR 100 UNIT/ML VIAL IV ONE (16:46)
[2019-10-01] MEDS ORDERED: CALCIUM GLUCONATE 1 GM in SODIUM CHLORIDE 0.9% 100 ML IVPB ONE (16:46)
[2019-10-01] MEDS ORDERED: SODIUM POLYSTYRENE SULFONATE 15 GM/60 ML BOTTLE PO ONE (16:46)
[2019-10-01] MEDS ORDERED: SODIUM BICARB 8.4% 50 ML SYR (1 MEQ/ML) IV ONE (16:46)
[2019-10-01] MEDS ORDERED: DEXTROSE 50% SYRINGE 50 ML IVP ONE (16:46)
[2019-10-01 16:53] LABS: Carbon Dioxide <5 mmol/L (22-30)
--- NOTE | 2019-10-01 16:57 | CT ---
EXAMINATION TYPE: CT brain kaleyine wo con DATE OF EXAM: 10/01/2019 COMPARISON: CT brain 10/21/2017 HISTORY: Fall. Headache. Neck pain CT DLP: 1511.1 mGycm Automated exposure control for dose reduction was used. There is cerebral cortical atrophy. There is no mass effect nor midline shift. There is no sign of in tracranial hemorrhage. There is hypodensity left cerebellar hemisphere consistent with old cerebellar infarct. The calvarium is intact. Skull base is intact. Cervical vertebra show fairly normal alignment. There is degenerative disc space narrowing at C4-5 C5 -6 with spurring of the endplates. C7 not entirely included on the exam. The posterior elements are i ntact. There is mild cervical facet arthropathy. There is posterior surgery in the mid cervical spine at C4 and C5 and C6. There is laminectomy defect. IMPRESSION: Old left cerebellar infarct unchanged. No acute intracranial abnormality. Cerebral atrophy. Previous cervical spine surgery. Spondylotic changes. No acute bony abnormality.
[2019-10-01 18:00] LABS: Appearance,Urine Turbid (Clear); Bacteria,Urine Many /hpf; Bilirubin,Urine Negative (Negative); Blood,Urine Moderate (Negative); Color,Urine Yellow; Glucose,Urine (UA) Negative (Negative); Hyaline Casts,Urine 7 /lpf (0-2); Ketones,Urine Trace (Negative); Leukocyte Esterase,Urine Large (Negative); Nitrite,Urine Negative (Negative); PH, Urine 5.5 (5.0-8.0); Protein,Urine 2+ (Negative); RBC,Urine 9 /hpf (0-5); Specific Gravity,Urine 1.015 (1.001-1.035); Squamous Epithelial Cell,Urine 5 /hpf (0-4); Urobilinogen,Urine <2.0 mg/dL (<2.0); WBC,Urine >182 /hpf (0-5)
[2019-10-01] MEDS ORDERED: ACETAMINOPHEN SUPPOSITORY 650 MG SUPP RECTAL PRN (18:56)
[2019-10-01] MEDS ORDERED: NALOXONE 0.4 MG/ML 1 ML VIAL IV PRN (18:56)
[2019-10-01] MEDS ORDERED: SODIUM CHLORIDE 0.9% 1,000 ML IV SCH (21:00)
[2019-10-01 22:09] LABS: Glucose,Whole Blood 121 mg/dL (75-99)
--- NOTE | 2019-10-01 22:18 | HP ---
HISTORY AND PHYSICAL DATE OF SERVICE: 10/01/2019. CHIEF COMPLAINT: Fall and weakness. HISTORY OF PRESENT ILLNESS: This 58-year-old woman with a past medical history of multiple medical problems including history of CVA, TIA, diabetes, hypertension, hyperlipidemia, history of vascular disorder, chronic gout, carpal tunnel syndrome, hysterectomy, depression being followed by Dr. Armijo in the outpatient setting is complaining of generalized weakness today. The patient apparently fell from the bed on Tuesday morning and patient was too weak and unable to get up and the patient also had some back pain. The patient has multiple bruises. The patient also had left below-knee amputation and had to release the prosthesis. After coming to the hospital, the patient found to be weak and was found to be hypotensive with the blood pressure going up to upper 80s and the patient also had features of UTI, sepsis was considered. The patient admitted for further evaluation and treatment. The patient also had significant worsening with creatinine 7.46, indicating acute renal failure. The CO2 was less than 5. The patient also had a hemoglobin of 5.8, of undetermined etiology, possibly multifactorial. The patient troponins ntd, CK was 929. There is no history of fever, rigors. No history of headache, loss of consciousness, seizures at this time. The patient also had recent episode of cellulitis. PAST MEDICAL HISTORY: History of CVA, TIA, diabetes type 2, hypertension, hyperlipidemia, history of DJD, history of chronic gout, carpal tunnel syndrome, hysterectomy, depression. MEDICATIONS: Prior to admission home medications are: 1. Ultram 50 mg t.i.d. p.r.n. 2. Metformin 500 mg p.o. b.i.d. 3. K-Dur 20 mEq p.o. b.i.d. 4. Lantus 25 units subcu q.h.s. 5. Neurontin 300 mg p.o. t.i.d. 6. Lasix 40 mg p.o. daily. 7. Vasotec 20 mg p.o. b.i.d. 8. Flexeril 10 mg daily p.r.n. 9. Colcrys 0.6 daily. 10.Plavix 75 mg p.o. daily. 11.Celexa 40 mg p.o. daily. 12.Lipitor 20 mg q.h.s. 13.Tenormin 250 mg p.o. daily. 14.Augmentin 875 mg 1 p.o. b.i.d. 15.Zyloprim 300 mg q.a.m. ALLERGIES: BACTRIM. FAMILY HISTORY: History of CVA, TIA, hypertension, hyperlipidemia. SOCIAL HISTORY: Previous history of smoking. No history of alcohol. REVIEW OF SYSTEMS: Could not be taken, the patient is confused. PHYSICAL EXAM: Pulse is 104. Blood pressure is 106/52, respiration 20, temperature 98.7, pulse ox 98% on room air. HEENT: Conjunctivae normal. Oral mucosa dry. Neck is no jugular venous distention. No carotid bruit. No lymph node enlargement. Cardiovascular: S1, S2 muffled. No S3, no S4. RESPIRATION: Breath sounds diminished in the bases. A few scattered rhonchi. No crackles. ABDOMEN: Soft, obese, nontender. No mass palpable. LEGS: Minimal edema. Left below-knee amputation. Nervous system: Higher functions as mentioned earlier. Moves all four limbs. Mild diffuse weakness. LYMPHATICS: No lymph nodes palpable in the neck or axilla. SKIN: No ulcers. JOINTS: No active deforming arthropathy. LAB STUDIES: WBC 16, hemoglobin 12.8, potassium 7.7 and BUN is 172, creatinine 7.46 and glucose 109 and CK creatinine kinase 929. Troponin 0.3. UA noted. ASSESSMENT: 1. Acute urinary tract infection with sepsis with severe sepsis and hypotension septic shock. 2. Acute renal failure possible acute tubular necrosis with prerenal factors. 3. Possible acute rhabdomyolysis. 4. Severe hyperkalemia secondary from acute renal failure. 5. Severe anemia normocytic, rule out gastrointestinal bleed. 6. Increased WBC secondary to sepsis. 7. Change in mental status, metabolic encephalopathy. 8. Diabetes mellitus type 2. 9. Hypertension. 10.Hyperlipidemia. 11.History of degenerative joint disease. 12.History of chronic gout. 13.History of carpal tunnel syndrome. 14.History of transient ischemic attack. 15.History of hysterectomy. 16.History of depression. 17.History of anxiety. 18.FULL CODE. RECOMMENDATIONS AND DISCUSSION: This 58-year-old woman who presented with multiple complex medical issues, we will monitor the patient closely continue the current medications. Obtain the urine and blood cultures and continue with broad-spectrum IV antibiotics. We will continue with IV fluids, admit to ICU. Consult Nephrology, Dr. Tesfaye. Otherwise insulin glucose regimen for hyperkalemia. Low-potassium diet. Exact etiology of anemia is unknown at this time. We will consult Gastroenterology for GI bleed for Dr. Adams. Otherwise, transfuse. Resume the home medications. Hold diuretics and MEHRDAD inhibitors. Guarded prognosis because of multiple complex medical issues. Further recommendations to follow. A copy of this dictation being forwarded to Dr. Armijo who is the primary physician. MMROSALIAL / NICOLASN: [id number] / MTDD
[2019-10-01] MEDS: MORPHINE SULFATE 4 MG/ML SYRINGE IV PRN (22:30)
[2019-10-01] MEDS: INSULIN ASPART (NovoLOG) 100 UNIT/ML VIAL SQ SCH (22:38)
[2019-10-01] MEDS: DEXTROSE 5% IN WATER 1,000 ML with SODIUM BICARB (1 MEQ/ML) 150 ML IV SCH (23:45)
[2019-10-02] MEDS: NYSTATIN 100,000 UNIT/ML SUSP 500,000 UNIT/5 ML CUP PO SCH ×5 (00:18→21:35)
[2019-10-02] MEDS: MORPHINE SULFATE 4 MG/ML SYRINGE IV PRN (00:34)
[2019-10-02 01:09] LABS: Anisocytosis Slight; Basophils % (A) 0 %; Eosinophils # (A) 0.1 k/uL (0-0.7); Eosinophils % (A) 1 %; HCT 20.7 % (34.0-46.0); Hypochromasia Marked; Lymphocytes # (A) 1.1 k/uL (1.0-4.8); Lymphocytes % (A) 9 %; MCH 28.4 pg (25.0-35.0); MCHC 31.1 g/dL (31.0-37.0); MCV 91.3 fL (80.0-100.0); Monocytes # (A) 0.4 k/uL (0-1.0); Monocytes % (A) 4 %; Neutrophils % (A) 85 %; Platelet Count 250 k/uL (150-450); RBC 2.27 m/uL (3.80-5.40); RDW 16.2 % (11.5-15.5); WBC 11.8 k/uL (3.8-10.6)
[2019-10-02 01:13] LABS: Calcium 8.8 mg/dL (8.4-10.2)
[2019-10-02 01:15] LABS: Potassium 6.5 mmol/L (3.5-5.1)
[2019-10-02 01:18] LABS: HGB 6.4 gm/dL (11.4-16.0)
[2019-10-02] MEDS ORDERED: SODIUM BICARB 8.4% 50 ML SYR (1 MEQ/ML) IV STA ×2 (01:27→10:45)
[2019-10-02] MEDS ORDERED: INSULIN REGULAR 100 UNIT/ML VIAL IV ONE (01:28)
[2019-10-02] MEDS ORDERED: DEXTROSE 50% SYRINGE 50 ML IVP STA (01:31)
[2019-10-02] MEDS ORDERED: CALCIUM GLUCONATE 1 GM in SODIUM CHLORIDE 0.9% 100 ML IVPB ONE (01:45)
[2019-10-02 06:52] LABS: Glucose,Whole Blood 182 mg/dL (75-99)
[2019-10-02] MEDS: INSULIN ASPART (NovoLOG) 100 UNIT/ML VIAL SQ SCH ×3 (06:52→20:20)
[2019-10-02 07:06] LABS: Albumin 2.6 g/dL (3.5-5.0); Calcium 8.3 mg/dL (8.4-10.2); Total Bilirubin 0.2 mg/dL (0.2-1.3); Total Protein 4.7 g/dL (6.3-8.2)
[2019-10-02] MEDS: DEXTROSE 5% IN WATER 1,000 ML with SODIUM BICARB (1 MEQ/ML) 150 ML IV SCH ×3 (07:16→18:26)
[2019-10-02] MEDS: PANTOPRAZOLE 40 MG/10 ML VIAL IV SCH (08:05)
[2019-10-02 08:49] LABS: Anisocytosis Slight; Basophils % (A) 0 %; Eosinophils # (A) 0.1 k/uL (0-0.7); Eosinophils % (A) 1 %; HCT 20.1 % (34.0-46.0); Lymphocytes # (A) 0.7 k/uL (1.0-4.8); Lymphocytes % (A) 10 %; MCH 29.9 pg (25.0-35.0); MCHC 33.8 g/dL (31.0-37.0); MCV 88.3 fL (80.0-100.0); Mean Platelet Volume 9.2; Monocytes # (A) 0.5 k/uL (0-1.0); Monocytes % (A) 7 %; Neutrophils # (A) 5.3 k/uL (1.3-7.7); Neutrophils % (A) 80 %; Platelet Count 201 k/uL (150-450); RBC 2.28 m/uL (3.80-5.40); RDW 17.7 % (11.5-15.5); WBC 6.6 k/uL (3.8-10.6)
[2019-10-02 08:50] LABS: HGB 6.8 gm/dL (11.4-16.0)
--- NOTE | 2019-10-02 10:30 | ECHOF ---
Referral Reason:[facility] MEASUREMENTS -------- HEIGHT: 157.5 cm WEIGHT: 72.1 kg BP: 98/54 IVSd: 1.2 cm (0.6 - 1.1) LVIDd: 4.6 cm (3.9 - 5.3) LVPWd: 1.0 cm (0.6 - 1.1) IVSs: 1.7 cm LVIDs: 3.1 cm LVPWs: 1.4 cm LA Diam: 3.4 cm (2.7 - 3.8) RVIDd: 3.3 cm (< 3.3) LAESV Index (A-L): 22.74 ml/m Ao Diam: 3.0 cm (2.0 - 3.7) AV Cusp: 1.9 cm (1.5 - 2.6) EPSS: 0.6 cm MV E Conor: 1.16 m/s MV DecT: 249 ms MV A Conor: 1.50 m/s MV E/A Ratio: 0.77 AV maxP.66 mmHg AV meanP.28 mmHg RAP: 15.00 mmHg RVSP: 50.84 mmHg MV EF SLOPE: 59.56 mm/s (70 - 150) MV EXCURSION: 17.01 mm (> 18.000) FINDINGS -------- Sinus rhythm. This was a technically good study. The left ventricular size is normal. There is borderline concentric left ventricular hypertrophy. Overall left ventricular systolic function is normal with, an EF between 65 - 70 %. The right ventricle is mildly enlarged. Normal LA size by volume 22+/-6 ml/m2. The right atrium is normal in size. Interatrial and interventricular septum intact. There is mild aortic valve sclerosis. Peak/mean gradient across the Aortic Valve is 14.66mmHg / 7.2 8mmHg. There is trace to mild mitral regurgitation. Mild tricuspid regurgitation present. There is moderate pulmonary hypertension. The right ventric ular systolic pressure, as measured by Doppler, is 50.84mmHg. The pulmonic valve was not well visualized. The aortic root size is normal. Normal inferior vena cava with less than 50% inspiratory collapse consistent with estimated right atr ial pressure of 15 mmHg. There is no pericardial effusion. Atypical septal motion secondary to pul htn CONCLUSIONS -------- 1. Sinus rhythm. 2. This was a technically good study. 3. The left ventricular size is normal. 4. There is borderline concentric left ventricular hypertrophy. 5. Overall left ventricular systolic function is normal with, an EF between 65 - 70 %. 6. The right ventricle is mildly enlarged. 7. Normal LA size by volume 22+/-6 ml/m2. 8. The right atrium is normal in size. 9. Interatrial and interventricular septum intact. 10. There is mild aortic valve sclerosis. 11. Peak/mean gradient across the Aortic Valve is 14.66mmHg / 7.28mmHg. 12. There is trace to mild mitral regurgitation. 13. Mild tricuspid regurgitation present. 14. There is moderate pulmonary hypertension. 15. The right ventricular systolic pressure, as measured by Doppler, is 50.84mmHg. 16. The pulmonic valve was not well visualized. 17. The aortic root size is normal. 18. Normal inferior vena cava with less than 50% inspiratory collapse consistent with estimated right atrial pressure of 15 mmHg. 19. There is no pericardial effusion. BOAT JOINER: Alix Duff RDCS
[2019-10-02] MEDS ORDERED: DESMOPRESSIN ACETATE 22 MCG in SODIUM CHLORIDE 0.9% 50 ML IVPB ONE (11:09)
--- NOTE | 2019-10-02 11:12 | P.NPCON ---
History of Present Illness - Reason for Consult acute renal failure, hyperkalemia - History of Present Illness Reason for consultation: Acute kidney injury and electrolyte imbalance History of present illness: Patient is a 58-year-old female seen in consultation for acute kidney injury and electrolyte imbalance. Patient's baseline creatinine from August 2019 20s near 1. It was elevated at 7.46 on admission and is 6.02 today. Potassium level was also elevated at 7.7 which was medically treated throughout the night and is down to 5.0 this morning. She was also noted to be extremely acidotic with a bicarbonate level of less than 5 admission and is up to 12 this morning. She is currently maintained on isotonic bicarbonate drip which is running at 1 50 mL an hour. Her hemoglobin was 6.4 on admission for which she has received blood transfusion and most recent hemoglobin is 6.8. She scheduled to receive another unit of blood this morning. Urine output has been semi-between 50-100 mL an hour. Patient presented to the hospital after she fell and was unable to get up. Her oral intake has been poor the last couple of days. She was found by family member and subsequent is to the hospital. She does have history of diabetes mellitus and was taking metformin along with IV insulin. She was also on Lasix as well as an MEHRDAD inhibitor which are all currently held. Patient is somewhat lethargic and not a reliable historian at this time. Vital signs are stable. General: The patient appeared well nourished and normally developed. HEENT: Head exam is unremarkable. Neck is without jugular venous distension. LUNGS: Lungs are clear to auscultation and percussion. Breath sounds decreased. HEART: Rate and Rhythm are regular. First and second heart sounds normal. ABDOMEN: Soft, nondistended. EXTREMITITES: No clubbing, cyanosis, or edema. Left BKA. Past Medical History Past Medical History: CVA/TIA, Diabetes Mellitus, Hyperlipidemia, Hypertension, Osteoarthritis (OA), Vascular Disorder Additional Past Medical History / Comment(s): chronic gout, carpal tunnel, TIA 2017-no residual effects. wound on rt heel-has been seen at wound care center 05/28 History of Any Multi-Drug Resistant Organisms: ESBL Date of last positivie culture/infection: 2018 MDRO Source:: urine Past Surgical History: Hysterectomy Additional Past Surgical History / Comment(s): neck surg, left BKA in October 25, & then revision of in December 25. stent rt leg 02/24 Past Anesthesia/Blood Transfusion Reactions: No Reported Reaction Past Psychological History: Depression Additional Psychological History / Comment(s): . Very anxious about c urrent situation Smoking Status: Former smoker Past Alcohol Use History: None Reported Additional Past Alcohol Use History / Comment(s): started smoking age 17, cutdown to maybe a cigarette q few days, does not remember when she last smoked Past Drug Use History: None Reported - Past Family History Mother Additional Family Medical History / Comment(s): at age 47 from heart defect Father Family Medical History: CVA/TIA, Hyperlipidemia, Hypertension Additional Family Medical History / Comment(s): 2 strokes affected brain stem Medications and Allergies Home Medications Medication Instructions Recorded Confirmed Type Insulin Glargine,Hum.rec.anlog 25 unit SQ HS 03/29/17 07/18/19 History [Lantus Solostar] Allopurinol [Zyloprim] 300 mg PO QAM 10/21/17 07/18/19 History Colchicine [Colcrys] 0.6 mg PO DAILY 10/21/17 07/18/19 History Enalapril [Vasotec] 20 mg PO BID 02/27/19 07/18/19 History Atenolol [Tenormin] 50 mg PO DAILY 04/25/19 07/18/19 History Atorvastatin [Lipitor] 20 mg PO HS 04/25/19 07/18/19 History Citalopram Hydrobromide [CeleXA] 40 mg PO DAILY 04/25/19 07/18/19 History Clopidogrel Bisulfate [Plavix] 75 mg PO DAILY 06/01/19 07/18/19 History Potassium Chloride [Klor-Con 20] 20 meq PO BID 06/01/19 07/18/19 History Cyclobenzaprine [Flexeril] 10 mg PO DAILY PRN 06/20/19 07/18/19 History metFORMIN HCL 500 mg PO BID 07/18/19 07/18/19 History Furosemide [Lasix] 40 mg PO DAILY #10 tablet 07/25/19 Rx traMADol HCl [Ultram] 50 mg PO TID PRN #9 tab 07/25/19 Rx Amoxic-Pot Clav 875-125Mg 1 tab PO BID #28 tab 07/26/19 Rx [Augmentin 875-125] Gabapentin [Neurontin] 300 mg PO TID #9 capsule 07/26/19 Rx Allergies Allergy/AdvReac Type Severity Reaction Status Date / Time sulfamethoxazole Allergy Itching Verified 10/01/19 14:43 [From Bactrim] trimethoprim [From Bactrim] Allergy Itching Verified 10/01/19 14:43 Physical Exam Vitals: Vital Signs Temp Pulse Resp BP Pulse Ox 10/02/19 10:00 104 H 17 100/59 95 10/02/19 09:00 104 H 12 113/60 95 10/02/19 08:00 98.9 F 99 13 98/54 96 10/02/19 07:00 99 F 104 H 14 98/55 97 10/02/19 06:00 103 H 16 103/55 97 10/02/19 05:00 105 H 26 H 105/67 97 10/02/19 04:25 98.7 F 107 H 20 112/60 96 10/02/19 04:00 98.8 F 110 H 24 114/60 95 10/02/19 03:55 98.8 F 108 H 16 114/60 97 10/02/19 03:45 98.8 F 110 H 16 113/61 98 10/02/19 03:00 109 H 17 94/69 96 10/02/19 02:00 106 H 18 97/73 97 10/02/19 01:00 105 H 20 102/76 96 10/02/19 00:00 98.8 F 106 H 20 96/68 97 10/01/19 23:00 98 F 108 H 21 101/62 98 10/01/19 22:08 97.5 F L 111 H 20 101/62 94 L 10/01/19 21:45 97.6 F 104 H 18 105/58 97 10/01/19 21:25 106 H 20 99/62 99 10/01/19 20:45 107 H 20 96/54 99 10/01/19 20:21 96.7 F L 104 H 20 106/52 10/01/19 20:00 107 H 20 102/46 98 10/01/19 19:51 96.6 F L 105 H 20 90/62 10/01/19 19:41 96.6 F L 106 H 20 97/63 97 10/01/19 19:35 105 H 20 97/63 99 10/01/19 19:17 105 H 20 101/72 100 10/01/19 19:14 107 H 20 98/82 98 10/01/19 19:05 106 H 20 93/45 98 10/01/19 19:00 105 H 18 78/49 98 10/01/19 18:45 104 H 20 90/52 99 10/01/19 18:32 104 H 10/01/19 18:26 105 H 20 92/52 98 10/01/19 18:11 103 H 10/01/19 18:00 102 H 20 101/41 100 10/01/19 17:30 101 H 20 86/49 99 10/01/19 17:00 103 H 18 97/57 100 10/01/19 16:12 99 20 94/57 100 10/01/19 14:38 97.9 F 89 20 108/49 97 Intake and Output 10/01/19 10/02/19 10/02/19 22:59 06:59 14:59 Intake Total 0 1510 910 Output Total 200 700 335 Balance -200 810 575 Intake: IV 1200 600 Dextrose 5% in Water 1, 1200 600 000 ml @ 150 mls/hr IV . Q7H40M EUGENIO with Sodium Bicarb (1 Meq/ml) 150 ml Rx#:[id number] Blood Product 0 310 310 Rc As-1 Unit 0 310 [id number] Rc As-1 Unit 0 310 [id number] Output: Urine 200 700 335 Other: Voiding Method Indwelling Catheter Indwelling Catheter Weight 70.307 kg 72.4 kg Results - Lab Results Most recent lab results Calcium 8.3 mg/dL (8.4-10.2) L 10/02/19 06:41 Magnesium 1.9 mg/dL (1.6-2.3) 10/01/19 16:06 10/02/19 08:21 10/02/19 06:41 Assessment and Plan Plan: Assessment: 1. Acute kidney injury secondary to ATN secondary to hypotension and acute blood loss anemia. Creatinine 7.46 on admission and a 6.02 today. Baseline creatinine near 1. Nonoliguric. Elevated BUN which is due to acute renal failure as well as GI bleed. 2. Acute blood loss anemia status post blood transition. GI consulted. 3. Hyperkalemia secondary to acute kidney injury, GI bleed, metabolic acidosis and further worsened with the use of lisinopril. Better. 4. Metabolic acidosis secondary to acute kidney injury as well as use of metformin in the setting of impaired kidney function. 5. Insulin-dependent diabetes mellitus. 6. Moderate pulmonary hypertension. 7. Benign hypertension. Blood pressure currently on the lower side. Plan: Maintain isotonic bicarbonate drip to be run at 150 mL an hour. 3 A of sodium bicarbonate IV push now. Scheduled to receive another unit of blood today. I will give her a dose of IV DDAVP today. Repeat CBC and BMP at noon today. Continue to monitor renal function and urine output. Check renal ultrasound. Follow-up cultures. Continue to assess closely for need for renal placement therapy. Thank you for the consultation. I will continue to follow patient with you during her hospital stay.
[2019-10-02 11:32] LABS: Glucose,Whole Blood 161 mg/dL (75-99)
--- NOTE | 2019-10-02 12:25 | CONS ---
CONSULTATION PULMONARY/CRITICAL CARE CONSULTATION: DATE OF SERVICE: 10/02/2019 This is a 58-year-old female who was admitted to the emergency room on September 30. Her admission diagnosis included sepsis, GI bleed, urinary tract infection, hyperkalemia, and acute kidney injury. Currently, the patient is on 2 L of nasal O2. She alternates with room air oxygen. In addition, she is getting a 3 amps of bicarb and D5W at 150 mL an hour. Her initial hemoglobin was 5.8. Follow up hemoglobin 6.4. She has received 2 units of blood. This is a 58-year-old female who apparently complained of falling out of her bed on Tuesday morning. She apparently was too weak and unable to get out of that position. She apparently was wedged between her bed and some furniture at that time. She also apparently complained of back pain and generalized weakness. The patient apparently was on ground for a bit more than a day and a half and apparently was not able to really eat or drink. She was apparently found by her son and EMS was called. HOME MEDICATIONS: Include insulin, allopurinol, colchicine, Vasotec, Tenormin, Lipitor, Celexa, Plavix, Klor-Con, Flexeril, metformin, Lasix, Ultram, and gabapentin. ALLERGIES: Include BACTRIM and TRIMETHOPRIM. MEDICAL HISTORY: Apparently positive for CVA, diabetes, hyperlipidemia, hypertension, DJD, chronic gout, carpal tunnel disease, and a chronic wound on the right heel. SURGICAL HISTORY: Includes previous hysterectomy and left [id number] amputation. She also apparently has had a stent to the right leg. SOCIAL HISTORY: Positive for previous tobacco use. There is no alcohol or illicit drug use. FAMILY HISTORY: Positive for mother at age 47 from some sort of heart problems and a father who has a history of hyperlipidemia, hypertension, and CVA x2. REVIEW OF SYSTEMS: CONSTITUTIONAL: Weakness. NEUROLOGIC: Negative. HEENT: Negative. CARDIOVASCULAR: Negative. PULMONARY: Negative. GI: Negative. : Negative. RHEUMATOLOGIC: Generalized aches and pains. IMMUNOLOGIC: Negative. ENDOCRINOLOGIC: Negative. DERMATOLOGIC: Negative. Current vital signs are reviewed. Temperature is 98.7, heart rate 103, respiratory rate 16, blood pressure 103/55 mean 71 and saturation on room air 97%. Appears in no acute distress. HEENT: Examination is grossly unremarkable. NECK: Supple. Full range of motion. No adenopathy. CARDIOVASCULAR: Examination reveals regular rhythm and rate. S1, S2 normal. No S3, S4, or murmur. LUNGS: Reveal mostly clear breath sounds. A few scattered rhonchi. No wheezes or crackles. ABDOMEN: Soft. EXTREMITY: Intact. No cyanosis, clubbing, or edema. SKIN: Without rash. There are some areas of ecchymoses. NEUROLOGIC: Examination is brief but nonfocal. She does have a left TKA. LABS: Reviewed. White count 11.8, hemoglobin 6.4, hematocrit 20.7, platelet count 250,000. PT, INR, and PTT all normal. Sodium 142, potassium 6.5, down from 7.7, chloride 119, CO2 is 7, anion gap is 16. BUN and creatinine were 153 and 6.52 down from 172 and 7.46. Her CK was 929. Her troponin was 0.039. N terminal proBNP 4310. Her urine was yellow and turbid. There is 2+ protein, trace ketones, moderate blood, leukocyte esterase was large positive. There were more than 182 WBCs, many WBC clumps and many bacteria. Stools were positive for occult blood. Microbiology is currently pending or negative. A chest x-ray was normal. The right knee x-ray was apparently relatively normal. The thoracic spine x-ray was also showing only arthritic changes. Lumbar spine x-ray likewise showed only arthritic changes. There is no acute fractures and a head CT and cervical spine films showed old left cerebellar infarct and evidence of previous cervical spine surgery. Current medications are reviewed. She is currently on Tylenol, insulin, morphine, Narcan, nystatin, Protonix, and her bicarb drip. ASSESSMENT: 1. Acute sepsis secondary to urinary tract infection. 2. Gastrointestinal bleed, status post 2 units of PRBCs. 3. Acute kidney injury with hyperkalemia and anion gap metabolic acidosis, currently on a bicarbonate drip. 4. History of old left cerebellar infarct. 5. Diabetes mellitus. 6. Hyperlipidemia. 7. Hypertension. 8. Degenerative joint disease. 9. Peripheral artery disease. 10.Left TKA. 11.Chronic right heel ulcer. 12.Previous history of tobacco use. PLAN: Currently, the patient appears to be relatively stable. She is on 2 L of oxygen. She is getting her bicarbonate drip. Nephrology is on board. We will continue to follow. Prognosis is guarded. X-rays were essentially all negative. No additional recommendations are made. Again, prognosis is very guarded, given her plethora of medical issues at the current time. MMROSALIAL / IJN: [id number] /
[2019-10-02 15:48] LABS: Anisocytosis Slight; Basophils % (A) 0 %; Eosinophils # (A) 0.1 k/uL (0-0.7); Eosinophils % (A) 2 %; HCT 23.3 % (34.0-46.0); HGB 8.2 gm/dL (11.4-16.0); Lymphocytes # (A) 0.6 k/uL (1.0-4.8); Lymphocytes % (A) 8 %; MCH 30.8 pg (25.0-35.0); MCHC 35.2 g/dL (31.0-37.0); MCV 87.5 fL (80.0-100.0); Mean Platelet Volume 9.9; Monocytes # (A) 0.5 k/uL (0-1.0); Monocytes % (A) 6 %; Neutrophils # (A) 6.4 k/uL (1.3-7.7); Neutrophils % (A) 84 %; Platelet Count 224 k/uL (150-450); RBC 2.67 m/uL (3.80-5.40); RDW 16.8 % (11.5-15.5); WBC 7.7 k/uL (3.8-10.6)
[2019-10-02 16:03] LABS: Calcium 7.6 mg/dL (8.4-10.2); Potassium 4.5 mmol/L (3.5-5.1)
--- NOTE | 2019-10-02 16:25 | US ---
EXAMINATION TYPE: US kidneys/renal and bladder DATE OF EXAM: 10/02/2019 COMPARISON: NONE CLINICAL HISTORY: deanne. DEANNE EXAM MEASUREMENTS: Right Kidney: 11.4 x 4.1 x 4.1 cm Left Kidney: 10.6 x 5.8 x 4.7 cm Right Kidney: No hydronephrosis or masses seen Left Kidney: No hydronephrosis or masses seen Bladder: Nondistended due to Doran catheter placement. Bilateral Jets seen: No There is no evidence for hydronephrosis at this point in time. No nephrolithiasis is seen. No errol s are identified. IMPRESSION: No hydronephrosis or nephrolithiasis.
[2019-10-02 19:16] LABS: % Iron Saturation 78.11 (12.00-45.00)
[2019-10-02 20:17] LABS: Glucose,Whole Blood 192 mg/dL (75-99)
--- NOTE | 2019-10-02 20:39 | CONS ---
CONSULTATION DATE OF DICTATION: 10/02/2019 REASON FOR CONSULTATION: Severe symptomatic anemia and Hemoccult-positive stool. HISTORY OF PRESENT ILLNESS: The patient is a 58-year-old pleasant white female with history of diabetes mellitus, hypertension, hyperlipidemia and peripheral vascular disease who apparently was found on the floor by her son and was brought to the emergency room. The patient fell off of the bed on Tuesday morning and her son found her on Tuesday and brought her to the emergency room. She was extremely dehydrated, was noted to have acute kidney injury with elevated BUN and creatinine. She was also noted to have severe anemia with a hemoglobin of 5.8 g/dL and Hemoccult-positive stool. According to the nurse, she denies having any abdominal pain. No nausea or vomiting. There was questionable black tarry stool x1. She was given one unit of PRBC transfusion. Hemoglobin went up to 6.4 g/dL. This morning she was given a second unit of PRBC transfusion. She remains very lethargic, and most of the history was obtained from the patient's chart. There is no prior history of peptic ulcer disease or recent NSAID use. PAST MEDICAL HISTORY: Her past medical history is significant for diabetes mellitus, hypertension, hyperlipidemia, history of CVA in the past, degenerative joint disease, anxiety, depression. PAST SURGICAL HISTORY: Hysterectomy. MEDICATIONS: Medications at home include Ultram, metformin, K-Dur, Lantus, Neurontin, Lasix, Vasotec, Flexeril, Plavix, Celexa, Lipitor, Tenormin, Augmentin and Zyloprim. ALLERGIES: BACTRIM. SOCIAL HISTORY: Former history of smoking but no alcohol use. FAMILY HISTORY: Mother had CVA. Father had hypertension, hyperlipidemia and TIA. REVIEW OF SYSTEMS: The patient is so lethargic that most of the review of systems could not be obtained, but on the simple questioning she denied any chest pain or shortness of breath. Further questions were not answered. PHYSICAL EXAMINATION: She appears comfortable, lying in bed. VITAL SIGNS: Stable. Blood pressure 107/69, pulse rate 106, temperature 98.9. HEENT examination unremarkable. Conjunctivae pale. Sclerae anicteric. Oral cavity no lesions. NECK: No JVD or lymph node enlargement. CHEST: Clear to auscultation. HEART: Regular rate and rhythm. There was tachycardia noted. ABDOMEN: Soft. Non-tender, non-distended. Liver and spleen were not palpable. Bowel sounds positive. EXTREMITIES: Left below-knee amputation. No pedal edema noted. NEUROLOGIC: Alert and oriented x3 but very lethargic. She responds appropriately. LABS: Labs done at the time of admission to the hospital showed hemoglobin 5.8, MCV was 91, WBC 11.8, platelets normal. BUN 152, creatinine 6.52. Sodium 142. AST and ALT are within normal limits. Alkaline phosphatase 56. Creatine kinase was 754. Potassium today is 6.5. Hemoglobin today is 6.4. IMPRESSION: 1. Severe symptomatic anemia and Hemoccult-positive stool. Clinically no evidence of active ongoing bleeding. Anemia appears to be multifactorial in etiology. Part of it could be based on occult GI blood loss and part of it related to chronic kidney disease/acute kidney injury. She is status post 2 units of PRBC transfusion. Repeat CBC is still pending at the time of this dictation. 2. Acute kidney injury with elevated BUN and creatinine and severe hyperkalemia, being treated. Nephrology is following the patient closely. 3. Lethargy. 4. History of diabetes mellitus. 5. Hypertension. 6. Left below-knee amputation. RECOMMENDATIONS: 1. Will obtain iron studies. 2. Agree with PRBC transfusion. 3. Monitor CBC on a daily basis. 4. Continue with Protonix 40 mg daily. 5. No plans on any endoscopic intervention at the present time, but we will continue to monitor her closely. Once her overall clinical condition improves, we will consider an EGD and colonoscopy during this hospitalization. We will follow with you. Thank you for this consultation. MMODL / NICOLASN: [id number] /
[2019-10-03] MEDS: DEXTROSE 5% IN WATER 1,000 ML with SODIUM BICARB (1 MEQ/ML) 150 ML IV SCH (05:01)
[2019-10-03 06:16] LABS: Albumin 2.8 g/dL (3.5-5.0); Calcium 7.1 mg/dL (8.4-10.2); Potassium 3.8 mmol/L (3.5-5.1); Total Bilirubin 0.4 mg/dL (0.2-1.3)
[2019-10-03 06:36] LABS: Anisocytosis Slight; Basophils % (A) 0 %; Eosinophils # (A) 0.1 k/uL (0-0.7); Eosinophils % (A) 2 %; Lymphocytes # (A) 1.1 k/uL (1.0-4.8); Lymphocytes % (A) 13 %; MCH 30.1 pg (25.0-35.0); MCHC 34.6 g/dL (31.0-37.0); Mean Platelet Volume 9.2; Monocytes # (A) 0.7 k/uL (0-1.0); Monocytes % (A) 8 %; Neutrophils # (A) 6.8 k/uL (1.3-7.7); Neutrophils % (A) 77 %; Platelet Count 217 k/uL (150-450); RBC 2.29 m/uL (3.80-5.40); RDW 16.7 % (11.5-15.5); WBC 8.9 k/uL (3.8-10.6)
[2019-10-03 06:41] LABS: Glucose,Whole Blood 153 mg/dL (75-99)
[2019-10-03 06:45] LABS: HGB 6.9 gm/dL (11.4-16.0)
[2019-10-03 06:46] LABS: HCT 19.9 % (34.0-46.0)
[2019-10-03] MEDS: INSULIN ASPART (NovoLOG) 100 UNIT/ML VIAL SQ SCH ×5 (06:50→20:57)
[2019-10-03] MEDS: MORPHINE SULFATE 4 MG/ML SYRINGE IV PRN ×3 (06:58→20:56)
[2019-10-03] MEDS ORDERED: POTASSIUM CHLORIDE ER 20 MEQ TAB.ER PO STA (07:08)
[2019-10-03] MEDS: SODIUM CHLORIDE 0.9% 1,000 ML IV SCH ×2 (07:14→16:18)
[2019-10-03] MEDS ORDERED: ONDANSETRON 4 MG/2 ML VIAL ONE (08:00)
[2019-10-03] MEDS: PANTOPRAZOLE 40 MG/10 ML VIAL IV SCH (10:08)
[2019-10-03] MEDS: NYSTATIN 100,000 UNIT/ML SUSP 500,000 UNIT/5 ML CUP PO SCH ×4 (10:09→20:58)
--- NOTE | 2019-10-03 10:10 | P.PN ---
Subjective Patient is seen in follow-up for acute kidney injury. Patient's creatinine in August 2019 was near 1. Creatinine was over 7 on admission and she was also noted to be severely hyperkalemic and acidotic. She is currently maintained on bicarb drip. Creatinine is down to 5.05. Hemoglobin remains low despite blood transfusions. It was 6.9 this morning. There was question of black tarry stool this admission. Feels nauseous. Denies chest pain or shortness of breath. Vital signs are stable. General: The patient appeared well nourished and normally developed. HEENT: Head exam is unremarkable. Neck is without jugular venous distension. LUNGS: Lungs are clear to auscultation and percussion. Breath sounds decreased. HEART: Rate and Rhythm are regular. ABDOMEN: Soft, no distention. EXTREMITITES: No edema. Left BKA noted. Objective - Vital Signs Vital signs: Vital Signs Temp 98.4 F 10/03/19 08:40 Pulse 99 10/03/19 08:40 Resp 17 10/03/19 08:40 BP 90/74 10/03/19 08:40 Pulse Ox 96 10/03/19 08:30 Intake & Output 10/02/19 10/03/19 10/03/19 18:59 06:59 18:59 Intake Total 2220 2160 200 Output Total 1185 990 160 Balance 1035 1170 40 Weight 71.6 kg Intake: IV 1550 1200 200 Dextrose 5% in Water 1, 1550 1200 100 000 ml @ 150 mls/hr IV . Q7H40M EUGENIO with Sodium Bicarb (1 Meq/ml) 150 ml Rx#:[id number] Sodium Chloride 0.9% 1, 100 000 ml @ 100 mls/hr IV . Q10H [facility] Rx#:[id number] Intake, IV Titration 50 Amount Desmopressin Acetate 22 50 mcg In Sodium Chloride 0. 9% 50 ml @ 200 mls/hr IVPB ONCE ONE Rx#: [id number] Oral 960 Blood Product 620 0 Rc As-1 Unit 0 [id number] Rc As-1 Unit 310 [id number] Rc As-1 Unit 310 [id number] Output: Urine 1185 990 160 Other: Voiding Method Indwelling Catheter Indwelling Catheter - Labs CBC & Chem 7: 10/03/19 05:10 10/03/19 05:10 Labs: Abnormal Lab Results - Last 24 Hours (Table) 10/01/19 10/02/19 10/02/19 Range/Units 17:20 06:41 11:29 RBC (3.80-5.40) m/uL Hgb (11.4-16.0) gm/dL Hct (34.0-46.0) % RDW (11.5-15.5) % Lymphocytes # (1.0-4.8) k/uL Chloride (98-107) mmol/L Carbon Dioxide (22-30) mmol/L BUN (7-17) mg/dL Creatinine (0.52-1.04) mg/dL Glucose (74-99) mg/dL POC Glucose (mg/dL) 161 H (75-99) mg/dL Calcium (8.4-10.2) mg/dL Iron 182 H (50-170) ug/dL % Saturation 78.11 H (12.00-45.00) AST (14-36) U/L Creatine Kinase (30-135) U/L Total Protein (6.3-8.2) g/dL Albumin (3.5-5.0) g/dL Crossmatch See Detail 10/02/19 10/02/19 10/02/19 Range/Units 15:27 15:27 20:16 RBC 2.67 L (3.80-5.40) m/uL Hgb 8.2 L (11.4-16.0) gm/dL Hct 23.3 L (34.0-46.0) % RDW 16.8 H (11.5-15.5) % Lymphocytes # 0.6 L (1.0-4.8) k/uL Chloride 112 H (98-107) mmol/L Carbon Dioxide 19 L (22-30) mmol/L BUN 143 H* (7-17) mg/dL Creatinine 5.43 H (0.52-1.04) mg/dL Glucose 157 H (74-99) mg/dL POC Glucose (mg/dL) 192 H (75-99) mg/dL Calcium 7.6 L (8.4-10.2) mg/dL Iron (50-170) ug/dL % Saturation (12.00-45.00) AST (14-36) U/L Creatine Kinase (30-135) U/L Total Protein (6.3-8.2) g/dL Albumin (3.5-5.0) g/dL Crossmatch 10/03/19 10/03/19 10/03/19 Range/Units 05:10 05:10 06:39 RBC 2.29 L (3.80-5.40) m/uL Hgb 6.9 L* (11.4-16.0) gm/dL Hct 19.9 L* (34.0-46.0) % RDW 16.7 H (11.5-15.5) % Lymphocytes # (1.0-4.8) k/uL Chloride (98-107) mmol/L Carbon Dioxide (22-30) mmol/L BUN 131 H* (7-17) mg/dL Creatinine 5.05 H (0.52-1.04) mg/dL Glucose 125 H (74-99) mg/dL POC Glucose (mg/dL) 153 H (75-99) mg/dL Calcium 7.1 L (8.4-10.2) mg/dL Iron (50-170) ug/dL % Saturation (12.00-45.00) AST 37 H (14-36) U/L Creatine Kinase 807 H (30-135) U/L Total Protein 5.0 L (6.3-8.2) g/dL Albumin 2.8 L (3.5-5.0) g/dL Crossmatch Microbiology - Last 24 Hours (Table) 10/01/19 18:31 Blood Culture - Preliminary Blood No Growth after 24 hours 10/01/19 17:07 Urine Culture - Preliminary Urine,Catheterized Gram Neg Bacilli Assessment and Plan Plan: Assessment: 1. Acute kidney injury secondary to ATN secondary to hypotension and acute blood loss anemia. Creatinine 7.46 on admission and is 5.05 today. Baseline creatinine near 1. Nonoliguric. Elevated BUN which is due to acute renal failure as well as GI bleed. No hydronephrosis noted on kidney ultrasound. 2. Acute blood loss anemia status post blood transfusion. Iron replete. GI following. She also received IV DDAVP on admission. 3. Hyperkalemia secondary to acute kidney injury, GI bleed, metabolic acidosis and further worsened with the use of lisinopril. Better. 4. Metabolic acidosis secondary to acute kidney injury as well as use of metformin in the setting of impaired kidney function. Improved. 5. Insulin-dependent diabetes mellitus. 6. Moderate pulmonary hypertension. 7. Benign hypertension. Blood pressure currently on the lower side. 8. UTI with urine culture positive for gram-negative bacilli maintained on antibiotics. Plan: Discontinue bicarbonate drip. Start normal saline at 75 mL an hour. Scheduled to receive another unit of blood today. Continue to monitor renal function and urine output. No urgent need for renal replacement therapy at this time. Continue to assess on daily basis.
[2019-10-03] MEDS ORDERED: CYCLOBENZAPRINE 10 MG TAB PO PRN (10:36)
[2019-10-03 11:41] LABS: Glucose,Whole Blood 162 mg/dL (75-99)
--- NOTE | 2019-10-03 11:41 | PN ---
PROGRESS NOTE PULMONARY/CRITICAL CARE PROGRESS NOTE: DATE OF SERVICE: 10/03/2019 This is a 58-year-old female who was admitted to the emergency department with a diagnosis of sepsis, GI bleed, urinary tract infection, hyperkalemia, and acute kidney injury. When I asked her today how she is feeling, she says "crappy." She is really not able to specify anything more other than just feeling achy and sore all over. She is on 2 L nasal cannula. She is getting saline at 100 mL an hour. She is getting Rocephin for presumed urinary tract infection. Urine is identifying some gram-negative bacilli, waiting further identification. The patient is possibly going to have an EGD today for upper gastrointestinal bleed. She has received 4 units of PRBCs since she has been here. The patient could be transferred to general medical floor with telemetry, if she remains stable, depending on what they find on EGD. Her initial hemoglobin was 5.8. Current vital signs are reviewed. Temperature 98.3, heart rate 86, respiratory rate 16, blood pressure 125/69 mean 87, saturations are 96% on 2 L. Appears in no acute distress. HEENT: Examination is grossly unremarkable. NECK: Supple, full range of motion. No adenopathy. Neck veins are flat. CARDIOVASCULAR: Examination reveals regular rhythm and rate. LUNGS: Reveal clear breath sounds. No wheezes or rhonchi. ABDOMEN: Soft, bowel sounds are noted. EXTREMITIES: Intact. No cyanosis, clubbing, or significant edema. SKIN: Without rash. NEUROLOGIC: Examination is brief but nonfocal. LABS: Reviewed. White count 8.9, hemoglobin 6.9, hematocrit 19.9, platelet count 217,000, sodium and potassium normal. Chloride 106, CO2 is 25, anion gap is 10. BUN and creatinine were 131 and 5.05. The rest of her labs look okay. CK was 807. Microbiology showing gram-negative bacilli in the urine. No chest x-ray today. An abdominal bladder ultrasound showed no evidence of kidney stones or hydronephrosis. MEDICATIONS: Medications have been reviewed. Unnecessary medications have been discontinued. ASSESSMENT: 1. Acute sepsis, secondary to urinary tract infection, from a yet identified gram- negative bacilli, probably E coli. 2. Gastrointestinal bleed, status post a total of 4 units of PRBCs with anticipated EGD in the near future. 3. Acute kidney injury with hyperkalemia and anion gap metabolic acidosis, currently much improved. The bicarbonate drip has been discontinued. 4. History of old left cerebellar infarct. 5. Diabetes mellitus. 6. Hyperlipidemia. 7. Hypertension. 8. Degenerative joint disease. 9. Peripheral artery disease. 10.Left TKA. 11.Chronic right heel ulcer. 12.Prior history of tobacco use. PLAN: Medications are reviewed. Everything seems to be appropriate. We added Rocephin back to her regimen. Will await identification of the gram-negative bacillus in the urine. Additional recommendations and suggestions are forthcoming. Possible EGD. She is getting her fourth unit of blood this morning. Will continue to follow the hemoglobin. Prognosis is guarded. If everything else is stable, she might be able to be transferred out to the general medical floor without telemetry. ANGEL / IRENE: [id number] /
[2019-10-03] MEDS: GABAPENTIN 100 MG CAP PO SCH ×4 (12:09→20:57)
[2019-10-03] MEDS: ATENOLOL 50 MG TAB PO SCH (12:09)
[2019-10-03 13:34] LABS: Anisocytosis Slight; HCT 27.1 % (34.0-46.0); MCH 29.8 pg (25.0-35.0); MCHC 33.3 g/dL (31.0-37.0); MCV 89.3 fL (80.0-100.0); Mean Platelet Volume 8.9; Platelet Count 180 k/uL (150-450); RBC 3.04 m/uL (3.80-5.40); RDW 16.4 % (11.5-15.5); WBC 9.5 k/uL (3.8-10.6)
[2019-10-03] MEDS ORDERED: ONDANSETRON 4 MG/2 ML VIAL IVP PRN ×2 (15:58→16:16)
[2019-10-03] MEDS: BACLOFEN 10 MG TAB PO PRN (16:04)
[2019-10-03 17:09] LABS: Glucose,Whole Blood 138 mg/dL (75-99)
[2019-10-03 20:15] LABS: Glucose,Whole Blood 132 mg/dL (75-99)
[2019-10-03] MEDS: INSULIN DETEMIR (LEVEMIR) 100 UNIT/ML SYR SQ SCH (20:57)
[2019-10-03] MEDS ORDERED: ATORVASTATIN 40 MG TAB PO SCH (21:00)
--- NOTE | 2019-10-04 01:57 | PN ---
PROGRESS NOTE DATE OF DICTATION: 10/03/2019 The patient is a 58-year-old pleasant white female admitted to the hospital with severe hypotension, altered mental status secondary to UTI and acute kidney injury. She was also noted to have a hemoglobin of 5.6 g/dL requiring 3 units of blood transfusion so far. She is feeling better. She is more awake today. She reports no abdominal pain. No nausea or vomiting. No rectal bleeding or melena. She was started on broad-spectrum antibiotics for urinary tract infection. Overall her condition is gradually improving. PHYSICAL EXAMINATION: On physical examination, she appears comfortable, in no apparent distress. Vital signs are stable. Blood pressure is 125/69, pulse rate 86, temperature 98.3. HEENT EXAMINATION: Unremarkable. Conjunctivae pink. Sclerae anicteric. Oral cavity, no lesions. NECK: No JVD or lymph node enlargement. CHEST: Clear to auscultation. HEART: Regular rate and rhythm. ABDOMEN: Soft. Bowel sounds are positive. No organomegaly. EXTREMITIES: No pedal edema. SKIN: No rashes. NEURO: Alert and oriented x3. No focal deficits. LABS: Labs from today: WBC Hemoglobin 9, platelets 180. BUN 131, creatinine 5.05. Potassium is 3.8. Stool occult blood was positive. Coronavirus PCR is negative. IMPRESSION: 1. Severe symptomatic anemia with Hemoccult-positive stool. Clinically no evidence of active ongoing bleeding. She received a total of 4 units of PRBC transfusion so far and her last hemoglobin is 9.1 g/dL. The patient does not have any active ongoing bleeding, but she was noted to have a Hemoccult-positive stool. 2. Acute kidney injury with hyperkalemia, resolving. 3. Altered mental status, improving. 4. Acute sepsis secondary to urinary tract infection, on broad-spectrum antibiotics. 5. Diabetes mellitus and hypertension/hyperlipidemia. RECOMMENDATIONS: 1. Continue with Protonix 40 mg twice daily. 2. Discussed with the patient need for EGD and colonoscopy, most likely on Tuesday and she is agreeable to the plan. The patient will be transferred to the floor today. We will continue to advance diet as tolerated. Will re-evaluate her tomorrow morning and discuss further about endoscopy intervention. Thank you for this consultation. MMODL / IJN: [id number] /
[2019-10-04] MEDS: SODIUM CHLORIDE 0.9% 1,000 ML IV SCH ×2 (05:51→21:24)
[2019-10-04 07:14] LABS: Glucose,Whole Blood 98 mg/dL (75-99)
[2019-10-04] MEDS: INSULIN ASPART (NovoLOG) 100 UNIT/ML VIAL SQ SCH ×4 (07:27→21:14)
[2019-10-04 08:03] LABS: Albumin 2.9 g/dL (3.5-5.0); Calcium 6.8 mg/dL (8.4-10.2); Potassium 3.6 mmol/L (3.5-5.1); Total Bilirubin 0.4 mg/dL (0.2-1.3); Total Protein 5.3 g/dL (6.3-8.2)
[2019-10-04 08:14] LABS: Basophils % (A) 0 %; Eosinophils # (A) 0.2 k/uL (0-0.7); Eosinophils % (A) 2 %; HCT 28.3 % (34.0-46.0); HGB 9.4 gm/dL (11.4-16.0); Lymphocytes # (A) 1.3 k/uL (1.0-4.8); Lymphocytes % (A) 13 %; MCH 29.4 pg (25.0-35.0); MCV 88.8 fL (80.0-100.0); Mean Platelet Volume 9.2; Monocytes # (A) 0.6 k/uL (0-1.0); Monocytes % (A) 6 %; Neutrophils # (A) 7.8 k/uL (1.3-7.7); Neutrophils % (A) 78 %; Platelet Count 192 k/uL (150-450); RBC 3.19 m/uL (3.80-5.40); RDW 15.9 % (11.5-15.5)
[2019-10-04] MEDS: GABAPENTIN 100 MG CAP PO SCH ×3 (08:16→21:21)
[2019-10-04] MEDS: CITALOPRAM HYDROBROMIDE 20 MG TAB PO SCH (08:16)
[2019-10-04] MEDS: NYSTATIN 100,000 UNIT/ML SUSP 500,000 UNIT/5 ML CUP PO SCH ×4 (08:16→21:22)
[2019-10-04] MEDS: PANTOPRAZOLE 40 MG/10 ML VIAL IV SCH (08:17)
[2019-10-04] MEDS: ATENOLOL 50 MG TAB PO SCH (08:25)
[2019-10-04] MEDS: MORPHINE SULFATE 4 MG/ML SYRINGE IV PRN ×2 (08:27→21:22)
[2019-10-04] MEDS ORDERED: ALLOPURINOL 300 MG TAB PO SCH (09:00)
[2019-10-04] MEDS ORDERED: COLCHICINE 0.6 MG EACH PO SCH (09:00)
[2019-10-04 09:31] LABS: Anisocytosis (M) Present; Poikilocytosis (M) Present; Polychromasia Present
--- NOTE | 2019-10-04 11:05 | P.PN ---
Subjective Patient is seen in follow-up for acute kidney injury. Patient's creatinine in August 2019 was near 1. Creatinine was over 7 on admission and she was also noted to be severely hyperkalemic and acidotic. She is currently maintained on normal saline. Creatinine is down to 148 today. Hemoglobin improved post blood transfusions. Denies chest pain or shortness of breath. Nonoliguric. Vital signs are stable. General: The patient appeared well nourished and normally developed. HEENT: Head exam is unremarkable. Neck is without jugular venous distension. LUNGS: Lungs are clear to auscultation and percussion. Breath sounds decreased. HEART: Rate and Rhythm are regular. ABDOMEN: Soft, no distention. EXTREMITITES: No edema. Left BKA noted. Objective - Vital Signs Vital signs: Vital Signs Temp 98.2 F 10/04/19 07:00 Pulse 73 10/04/19 08:00 Resp 20 10/04/19 08:00 BP 148/71 10/04/19 07:00 Pulse Ox 93 L 10/04/19 07:00 Intake & Output 10/03/19 10/04/19 10/04/19 18:59 06:59 18:59 Intake Total 510 100 Output Total 160 1560 1500 Balance 350 -1460 -1500 Intake: IV 200 Dextrose 5% in Water 1, 100 000 ml @ 150 mls/hr IV . Q7H40M EU[facility] with Sodium Bicarb (1 Meq/ml) 150 ml Rx#:[id number] Sodium Chloride 0.9% 1, 100 000 ml @ 75 mls/hr IV . [id number] [facility] Rx#:[id number] Oral 100 Blood Product 310 Rc As-1 Unit 310 [id number] Output: Urine 160 1560 1500 Other: Voiding Method Indwelling Catheter Indwelling Catheter Indwelling Catheter - Labs CBC & Chem 7: 10/04/19 07:11 10/04/19 07:11 Labs: Abnormal Lab Results - Last 24 Hours (Table) 10/03/19 10/03/19 10/03/19 Range/Units 11:40 12:55 16:50 RBC 3.04 L (3.80-5.40) m/uL Hgb 9.0 L D (11.4-16.0) gm/dL Hct 27.1 L (34.0-46.0) % RDW 16.4 H (11.5-15.5) % Neutrophils # (1.3-7.7) k/uL Chloride (98-107) mmol/L BUN (7-17) mg/dL Creatinine (0.52-1.04) mg/dL POC Glucose (mg/dL) 162 H 138 H (75-99) mg/dL Calcium (8.4-10.2) mg/dL AST (14-36) U/L Creatine Kinase (30-135) U/L Total Protein (6.3-8.2) g/dL Albumin (3.5-5.0) g/dL 10/03/19 10/04/19 10/04/19 Range/Units 20:14 07:11 07:11 RBC 3.19 L (3.80-5.40) m/uL Hgb 9.4 L (11.4-16.0) gm/dL Hct 28.3 L (34.0-46.0) % RDW 15.9 H (11.5-15.5) % Neutrophils # 7.8 H (1.3-7.7) k/uL Chloride 108 H (98-107) mmol/L BUN 112 H* (7-17) mg/dL Creatinine 4.48 H (0.52-1.04) mg/dL POC Glucose (mg/dL) 132 H (75-99) mg/dL Calcium 6.8 L (8.4-10.2) mg/dL AST 40 H (14-36) U/L Creatine Kinase 1072 H* (30-135) U/L Total Protein 5.3 L (6.3-8.2) g/dL Albumin 2.9 L (3.5-5.0) g/dL Microbiology - Last 24 Hours (Table) 10/01/19 18:31 Blood Culture - Preliminary Blood No Growth after 48 hours 10/01/19 17:07 Urine Culture - Preliminary Urine,Catheterized Klebsiella pneumoniae Assessment and Plan Plan: Assessment: 1. Acute kidney injury secondary to ATN secondary to hypotension and acute blood loss anemia. Creatinine 7.46 on admission and is 4.48 today. Baseline cr eatinine near 1. Nonoliguric. Elevated BUN which is due to acute renal failure as well as GI bleed. No hydronephrosis noted on kidney ultrasound. 2. Acute blood loss anemia status post blood transfusions. Iron replete. GI following. She also received IV DDAVP on admission. 3. Hyperkalemia secondary to acute kidney injury, GI bleed, metabolic acidosis and further worsened with the use of lisinopril. Resolved. 4. Metabolic acidosis secondary to acute kidney injury as well as use of metfo rmin in the setting of impaired kidney function. Improved. 5. Insulin-dependent diabetes mellitus. 6. Moderate pulmonary hypertension. 7. Benign hypertension. Controlled. 8. UTI with urine culture positive for Klebsiella maintained on antibiotics. Plan: Maintain normal saline at 75 mL an hour. Continue to monitor renal function and urine output. Decrease dose of gabapentin to 100 mg 3 times daily. Hold Lipitor due to elevated CK. No urgent need for renal replacement therapy at this time. Continue to assess on daily basis.
[2019-10-04 11:54] LABS: Glucose,Whole Blood 131 mg/dL (75-99)
[2019-10-04 13:00] VITALS: BMI 28.8
--- NOTE | 2019-10-04 15:43 | PN ---
PROGRESS NOTE PULMONARY/CRITICAL CARE PROGRESS NOTE: DATE OF SERVICE: 10/04/2019 This patient is a 58-year-old female who was admitted with a diagnosis of E coli sepsis. Her source was the urinary tract. She also was admitted with a diagnosis of gastrointestinal bleed. She is status post 4 units of PRBCs. Currently the patient is doing reasonably well. She denies any complaints. She still feels a little bit weak and tired. In addition, she was found to have acute kidney injury with an anion gap metabolic acidosis. That is certainly much improved. PHYSICAL EXAMINATION: VITAL SIGNS: Current vital signs are reviewed. Temperature 98.2 heart rate 75, respiratory rate 20, blood pressure 148/71, room-air saturation 93%. GENERAL APPEARANCE: Appears in no acute distress. HEENT: Examination is grossly unremarkable. Mucous membranes are moist. There are no oral lesions. NECK: Supple. Full range of motion. No adenopathy, thyromegaly or neck vein distention. CARDIOVASCULAR: Examination reveals regular rhythm and rate. Heart rate 75 beats per minute. S1, S2 normal. LUNGS: Lungs reveal relatively clear but diminished breath sounds. No wheezes or rhonchi. A few scattered crackles. ABDOMEN: Soft. Bowel sounds are heard. EXTREMITIES: Intact. She has a left ogpls-qwb-tosv amputation. SKIN: Without rash. NEUROLOGIC: Neurologic examination is nonfocal. LABS: Reviewed. White count 10, hemoglobin 9.4, hematocrit 28.3, platelet count 192,000. Hemoglobin from yesterday was 9, so it appears that her hemoglobin has now stabilized. Sodium 141, potassium 3.6, chloride 108. CO2 22. Anion gap is 11. BUN and creatinine were 112 and 4.48. Previous BUN and creatinine were 131 and 5.05. Her urine looked dirty. Microbiology was positive for Klebsiella pneumoniae in the urine. No recent x-ray to report. ASSESSMENT: 1. Acute sepsis secondary to urinary tract infection, secondary to Klebsiella pneumoniae. 2. Gastrointestinal bleed, status post a total of 4 units of packed RBCs with anticipated esophagogastroduodenoscopy in the near future, not yet done. 3. Acute kidney injury with hyperkalemia and anion gap metabolic acidosis, currently much improved. 4. History of old left cerebellar infarct. 5. Diabetes mellitus. 6. Hyperlipidemia. 7. Benign essential hypertension. 8. Degenerative joint disease. 9. Peripheral artery disease. 10.Left above-knee amputation. 11.Chronic right heel ulcer. 12.Prior history of tobacco use. PLAN: Currently the patient is doing relatively well. Her urinary tract infection appears to be secondary to Klebsiella pneumoniae. She was on ceftriaxone. It appears that the Klebsiella pneumoniae is an extended-spectrum beta lactamase-producing Klebsiella pneumoniae. Labs are reviewed. Her hemoglobin is stable. I will change the antibiotic to meropenem. Additional recommendations and suggestions are forthcoming. MMODL / IJN: [id number] /
[2019-10-04] MEDS: MEROPENEM 1 GM in SODIUM CHLORIDE 0.9% 100 ML IVPB SCH (15:54)
[2019-10-04] MEDS ORDERED: PEG 3350-NA SULF,BICARB,CL/KCL 4,000 ML BOTTLE PO ONE (16:00)
[2019-10-04 17:23] LABS: Glucose,Whole Blood 95 mg/dL (75-99)
[2019-10-04 20:39] LABS: Glucose,Whole Blood 116 mg/dL (75-99)
--- NOTE | 2019-10-04 20:58 | P.PN ---
Subjective Progress Note Date: 10/02/19 Patient is a pleasant confused 58-year-old white female with multiple medical problems she was admitted after a fall is now seen in ICU she is quite confused this morning and apparently is suffering from urinary tract infection with sepsis. Blood cultures were obtained and patient is currently on antibiotics and fluid resuscitation. She is lethargic but does awake and does know where she is at. She denies any acute pain. I instructed the nurse all pain medications until she becomes more alert Objective - Vital Signs Vital signs: Vital Signs Temp 99.1 F 10/04/19 19:47 Pulse 67 10/04/19 19:47 Resp 16 10/04/19 19:48 BP 137/66 10/04/19 19:47 Pulse Ox 91 L 10/04/19 19:47 Intake & Output 10/04/19 10/04/19 10/05/19 06:59 18:59 06:59 Intake Total 100 500 Output Total 1560 2500 Balance -1460 -2000 Weight 71.6 kg Intake: IV 500 Sodium Chloride 0.9% 1, 500 000 ml @ 75 mls/hr IV . [id number] Rx#:[id number] Oral 100 Output: Urine 1560 2500 Other: Voiding Method Indwelling Catheter Indwelling Catheter Indwelling Catheter # Voids 1 - Exam GENERAL: This is a 58-year-old in no apparent distress at the time of examination. Pleasant and cooperative. But lethargic after administration of pain medication. HEENT: Head is atraumatic, normocephalic. Pupils are equal, round, and reactive to light. Sclerae anicteric. Conjunctivae are clear. Mucus membranes of the mouth are moist. Neck is supple. RESPIRATORY: Clear to auscultation. No wheezes, rales, or rhonchi. No use of accessory muscles. Patient maintaining oxygen saturation greater than 92%. No chest wall tenderness is noted on palpation or with deep breathing. CARDIOVASCULAR: Regular rate and rhythm. S1 and S2 noted. No systolic or diastolic murmur auscultated. No JVD noted. No S3 or S4 noted. GASTROINTESTINAL: No distention noted. Abdomen soft and round. Normal active bowel sounds auscultated x 4 quadrants. No pain or tenderness noted upon palpation. INTEGUMENTARY: Multiple contusions to her right knee. Dressing placed on her right foot. Left xamii-hjp-edfd amputation stump intact with known multiple bruising on the left knee.. EXTREMITIES: Left fuypr-hol-mqvz amputation. Ulcerations on right foot curr ently under wound care by Dr. Hunt at [facility]. NEUROLOGIC: Cranial nerves II-XII intact. PSYCHIATRIC: Awake, alert, and oriented X 2. Appropriate affect. Lethargic and drowsy.. - Labs CBC & Chem 7: 10/04/19 07:11 10/04/19 07:11 Labs: Abnormal Lab Results - Last 24 Hours (Table) 10/04/19 10/04/19 10/04/19 Range/Units 07:11 07:11 11:44 RBC 3.19 L (3.80-5.40) m/uL Hgb 9.4 L (11.4-16.0) gm/dL Hct 28.3 L (34.0-46.0) % RDW 15.9 H (11.5-15.5) % Neutrophils # 7.8 H (1.3-7.7) k/uL Chloride 108 H (98-107) mmol/L BUN 112 H* (7-17) mg/dL Creatinine 4.48 H (0.52-1.04) mg/dL POC Glucose (mg/dL) 131 H (75-99) mg/dL Calcium 6.8 L (8.4-10.2) mg/dL AST 40 H (14-36) U/L Creatine Kinase 1072 H* (30-135) U/L Total Protein 5.3 L (6.3-8.2) g/dL Albumin 2.9 L (3.5-5.0) g/dL 10/04/19 Range/Units 20:37 RBC (3.80-5.40) m/uL Hgb (11.4-16.0) gm/dL Hct (34.0-46.0) % RDW (11.5-15.5) % Neutrophils # (1.3-7.7) k/uL Chloride (98-107) mmol/L BUN (7-17) mg/dL Creatinine (0.52-1.04) mg/dL POC Glucose (mg/dL) 116 H (75-99) mg/dL Calcium (8.4-10.2) mg/dL AST (14-36) U/L Creatine Kinase (30-135) U/L Total Protein (6.3-8.2) g/dL Albumin (3.5-5.0) g/dL Microbiology - Last 24 Hours (Table) 10/01/19 18:31 Blood Culture - Preliminary Blood No Growth after 48 hours Assessment and Plan (1) Acute kidney injury superimposed on chronic kidney disease Current Visit: Yes Status: Acute Code(s): N17.9 - ACUTE KIDNEY FAILURE, UNSPECIFIED; N18.9 - CHRONIC KIDNEY DISEASE, UNSPECIFIED SNOMED Code(s): 35655559 (2) Diabetic ulcer of right foot associated with diabetes mellitus due to underlying condition Current Visit: Yes Status: Acute Code(s): E08.621 - DIABETES MELLITUS DUE TO UNDERLYING CONDITION W FOOT ULCER; L97.519 - NON-PRS CHRONIC ULCER OTH PRT RIGHT FOOT W UNSP SEVERITY SNOMED Code(s): 951550253 (3) Anemia Current Visit: Yes Status: Acute Code(s): D64.9 - ANEMIA, UNSPECIFIED SNOMED Code(s): 073207458 (4) Dehydration Current Visit: Yes Status: Acute Code(s): E86.0 - DEHYDRATION SNOMED Code (s): 18281911 (5) GI bleed Current Visit: Yes Status: Acute Code(s): K92.2 - GASTROINTESTINAL HEMORRHAGE, UNSPECIFIED SNOMED Code(s): 54953664 (6) Hyperkalemia Current Visit: Yes Status: Acute Code(s): E87.5 - HYPERKALEMIA SNOMED Code(s): 78555706 (7) Sepsis Current Visit: Yes Status: Acute Code(s): A41.9 - SEPSIS, UNSPECIFIED ORGANISM SNOMED Code(s): 33520333 (8) UTI (urinary tract infection) Current Visit: Yes Status: Acute Code(s): N39.0 - URINARY TRACT INFECTION, SITE NOT SPECIFIED SNOMED Code(s): 55888460 (9) Cerebrovascular accident Current Visit: No Status: Acute Code(s): I63.9 - CEREBRAL INFARCTION, UNSPECIFIED SNOMED Code(s): 701370330 (10) Diabetes mellitus type 2, uncontrolled, with complications Current Visit: No Status: Acute Code(s): E11.8 - TYPE 2 DIABETES MELLITUS WITH UNSPECIFIED COMPLICATIONS; E11.65 - TYPE 2 DIABETES MELLITUS WITH HYPERGLYC EMIA SNOMED Code(s): 31459457 (11) Peripheral artery disease Current Visit: No Status: Acute Code(s): I73.9 - PERIPHERAL VASCULAR DISEASE, UNSPECIFIED SNOMED Code(s): 199816562 (12) Smoker Current Visit: No Status: Acute Code(s): F17.200 - NICOTINE DEPENDENCE, UNSPECIFIED, UNCOMPLICATED SNOMED Code(s): 26887253 (13) Dyslipidemia Current Visit: No Status: Chronic Code(s): E78.5 - HYPERLIPIDEMIA, UNSPECIFIED SNOMED Code(s): 030877605 (14) Hypertension Current Visit: No Status: Chronic Code(s): I10 - ESSENTIAL (PRIMARY) HYPERTENSION SNOMED Code(s): 75424534 Plan: Continue to monitor patient status continue hydration continue IV antibiotics an d nephrology consultation in progress. Patient does appear stable enough to be transferred to general medical floor with remote telemetry will continue to follow patient's condition.
--- NOTE | 2019-10-04 21:03 | P.PN ---
Subjective Progress Note Date: 10/03/19 Patient doing better today definitely communicating better. Pain still persistent in her right extremity. Her hydration has improved is afebrile Objective - Vital Signs Vital signs: Vital Signs Temp 99.1 F 10/04/19 19:47 Pulse 67 10/04/19 19:47 Resp 16 10/04/19 19:48 BP 137/66 10/04/19 19:47 Pulse Ox 91 L 10/04/19 19:47 Intake & Output 10/04/19 10/04/19 10/05/19 06:59 18:59 06:59 Intake Total 100 500 Output Total 1560 2500 Balance -1460 -1999 Weight 71.6 kg Intake: IV 500 Sodium Chloride 0.9% 1, 500 000 ml @ 75 mls/hr IV . [id number] [facility] Rx#:[id number] Oral 100 Output: Urine 1560 2500 Other: Voiding Method Indwelling Catheter Indwelling Catheter Indwelling Catheter # Voids 1 - Exam GENERAL: This is a 58-year-old in no apparent distress at the time of examination. Pleasant and cooperative. But lethargic after administration of pain medication. HEENT: Head is atraumatic, normocephalic. Pupils are equal, round, and reactive to light. Sclerae anicteric. Conjunctivae are clear. Mucus membranes of the mouth are moist. Neck is supple. RESPIRATORY: Clear to auscultation. No wheezes, rales, or rhonchi. No use of accessory muscles. Patient maintaining oxygen saturation greater than 92%. No chest wall tenderness is noted on palpation or with deep breathing. CARDIOVASCULAR: Regular rate and rhythm. S1 and S2 noted. No systolic or diastolic murmur auscultated. No JVD noted. No S3 or S4 noted. GASTROINTESTINAL: No distention noted. Abdomen soft and round. Normal active bowel sounds auscultated x 4 quadrants. No pain or tenderness noted upon palpation. INTEGUMENTARY: Multiple contusions to her right knee. Dressing placed on her right foot. Left judzb-mar-pbpd amputation stump intact with known multiple bruising on the left knee.. EXTREMITIES: Left zlpua-xlj-vsmc amputation. Ulcerations on right foot currently under wound care by Dr. Hunt at [facility]. NEUROLOGIC: Cranial nerves II-XII intact. PSYCHIATRIC: Awake, alert, and oriented X 2. Appropriate affect. Lethargic and drowsy.. - Labs CBC & Chem 7: 10/04/19 07:11 10/04/19 07:11 Labs: Abnormal Lab Results - Last 24 Hours (Table) 10/04/19 10/04/19 10/04/19 Range/Units 07:11 07:11 11:44 RBC 3.19 L (3.80-5.40) m/uL Hgb 9.4 L (11.4-16.0) gm/dL Hct 28.3 L (34.0-46.0) % RDW 15.9 H (11.5-15.5) % Neutrophils # 7.8 H (1.3-7.7) k/uL Chloride 108 H (98-107) mmol/L BUN 112 H* (7-17) mg/dL Creatinine 4.48 H (0.52-1.04) mg/dL POC Glucose (mg/dL) 131 H (75-99) mg/dL Calcium 6.8 L (8.4-10.2) mg/dL AST 40 H (14-36) U/L Creatine Kinase 1072 H* (30-135) U/L Total Protein 5.3 L (6.3-8.2) g/dL Albumin 2.9 L (3.5-5.0) g/dL 10/04/19 Range/Units 20:37 RBC (3.80-5.40) m/uL Hgb (11.4-16.0) gm/dL Hct (34.0-46.0) % RDW (11.5-15.5) % Neutrophils # (1.3-7.7) k/uL Chloride (98-107) mmol/L BUN (7-17) mg/dL Creatinine (0.52-1.04) mg/dL POC Glucose (mg/dL) 116 H (75-99) mg/dL Calcium (8.4-10.2) mg/dL AST (14-36) U/L Creatine Kinase (30-135) U/L Total Protein (6.3-8.2) g/dL Albumin (3.5-5.0) g/dL Microbiology - Last 24 Hours (Table) 10/01/19 18:31 Blood Culture - Preliminary Blood No Growth after 72 hours Assessment and Plan (1) Acute kidney injury superimposed on chronic kidney disease Current Visit: Yes Status: Acute Code(s): N17.9 - ACUTE KIDNEY FAILURE, UNSPECIFIED; N18.9 - CHRONIC KIDNEY DISEASE, UNSPECIFIED SNOMED Code(s): 27369604 (2) Diabetic ulcer of right foot associated with diabetes mellitus due to underlying condition Current Visit: Yes Status: Acute Code(s): E08.621 - DIABETES MELLITUS DUE TO UNDERLYING CONDITION W FOOT ULCER; L97.519 - NON-PRS CHRONIC ULCER OTH PRT RIGHT FOOT W UNSP SEVERITY SNOMED Code(s): 393753768 (3) Anemia Current Visit: Yes Status: Acute Code(s): D64.9 - ANEMIA, UNSPECIFIED SNOMED Code(s): 102380233 (4) Dehydration Current Visit: Yes Status: Acute Code(s): E86.0 - DEHYDRATION SNOMED Code(s): 53556254 (5) GI bleed Current Visit: Yes Status: Acute Code(s): K92.2 - GASTROINTESTINAL HEMORRHAGE, UNSPECIFIED SNOMED Code(s): 74631308 (6) Hyperkalemia Current Visit: Yes Status: Acute Code(s): E87.5 - HYPERKALEMIA SNOMED Code(s): 78915020 (7) Sepsis Current Visit: Yes Status: Acute Code(s): A41.9 - SEPSIS, UNSPECIFIED ORGANISM SNOMED Code(s): 51010492 (8) UTI (urinary tract infection) Current Visit: Yes Status: Acute Code(s): N39.0 - URINARY TRACT INFECTION, SITE NOT SPECIFIED SNOMED Code(s): 50044595 (9) Cerebrovascular accident Current Visit: No Status: Acute Code(s): I63.9 - CEREBRAL INFARCTION, UNSPECIFIED SNOMED Code(s): 194619589 (10) Diabetes mellitus type 2, uncontrolled, with complications Current Visit: No Status: Acute Code(s): E11.8 - TYPE 2 DIABETES MELLITUS WITH UNSPECIFIED COMPLICATIONS; E11.65 - TYPE 2 DIABETES MELLITUS WITH HYPERGLYCEMIA SNOMED Code(s): 14736032 (11) Peripheral artery disease Current Visit: No Status: Acute Code(s): I73.9 - PERIPHERAL VASCULAR D ISEASE, UNSPECIFIED SNOMED Code(s): 805613116 (12) Smoker Current Visit: No Status: Acute Code(s): F17.200 - NICOTINE DEPENDENCE, UNSPECIFIED, UNCOMPLICATED SNOMED Code(s): 02851155 (13) Dyslipidemia Current Visit: No Status: Chronic Code(s): E78.5 - HYPERLIPIDEMIA, UNSPECIFIED SNOMED Code(s): 753760906 (14) Hypertension Current Visit: No Status: Chronic Code(s): I10 - ESSENTIAL (PRIMARY) HYPERTENSION SNOMED Code(s): 37711741 Plan: Continue to monitor patient status continue hydration continue IV antibiotics and nephrology consultation in progress. Continue progressive treatment.
--- NOTE | 2019-10-04 21:13 | P.PN ---
Subjective Progress Note Date: 10/04/19 Patient was seen and examined general medical floor. She is much more alert today complaining of contractions her right lower extremity with persistent muscle spasm and pain. Patient's appetite is improved and renal function has improved. No evidence of bleeding at this time. Patient has received a total of 4 units of packed RBCs hemodynamically stable. With a hemoglobin of 9.1. GI and pulmonary To follow the patient on a daily basis and nephrology as well. Objective - Vital Signs Vital signs: Vital Signs Temp 99.1 F 10/04/19 19:47 Pulse 67 10/04/19 19:47 Resp 16 10/04/19 19:48 BP 137/66 10/04/19 19:47 Pulse Ox 91 L 10/04/19 19:47 Intake & Output 10/04/19 10/04/19 10/05/19 06:59 18:59 06:59 Intake Total 100 500 Output Total 1560 2500 Balance -1460 -2000 Weight 71.6 kg Intake: IV 500 Sodium Chloride 0.9% 1, 500 000 ml @ 75 mls/hr IV . [id number] [facility] Rx#:[id number] Oral 100 Output: Urine 1560 2500 Other: Voiding Method Indwelling Catheter Indwelling Catheter Indwelling Catheter # Voids 1 - Exam GENERAL: This is a 58-year-old in no apparent distress at the time of examination. Pleasant and cooperative. But lethargic after administration of pain medication. HEENT: Head is atraumatic, normocephalic. Pupils are equal, round, and reactive to light. Sclerae anicteric. Conjunctivae are clear. Mucus membranes of the mouth are moist. Neck is supple. RESPIRATORY: Clear to auscultation. No wheezes, rales, or rhonchi. No use of accessory muscles. Patient maintaining oxygen saturation greater than 92%. No chest wall tenderness is noted on palpation or with deep breathing. CARDIOVASCULAR: Regular rate and rhythm. S1 and S2 noted. No systolic or diastolic murmur auscultated. No JVD noted. No S3 or S4 noted. GASTROINTESTINAL: No distention noted. Abdomen soft and round. Normal active bowel sounds auscultated x 4 quadrants. No pain or tenderness noted upon pal pation. INTEGUMENTARY: Multiple contusions to her right knee. Dressing placed on her right foot. Left kwnku-jyq-tcil amputation stump intact with known multiple bruising on the left knee.. EXTREMITIES: Left pbmro-krh-xndw amputation. Ulcerations on right foot currently under wound care by Dr. Hunt at [facility]. NEUROLOGIC: Cranial nerves II-XII intact. PSYCHIATRIC: Awake, alert, and oriented X 2. Appropriate affect. Lethargic and drowsy.. - Labs CBC & Chem 7: 10/04/19 07:11 10/04/19 07:11 Labs: Abnormal Lab Results - Last 24 Hours (Table) 10/04/19 10/04/19 10/04/19 Range/Units 07:11 07:11 11:44 RBC 3.19 L (3.80-5.40) m/uL Hgb 9.4 L (11.4-16.0) gm/dL Hct 28.3 L (34.0-46.0) % RDW 15.9 H (11.5-15.5) % Neutrophils # 7.8 H (1.3-7.7) k/uL Chloride 108 H (98-107) mmol/L BUN 112 H* (7-17) mg/dL Creatinine 4.48 H (0.52-1.04) mg/dL POC Glucose (mg/dL) 131 H (75-99) mg/dL Calcium 6.8 L (8.4-10.2) mg/dL AST 40 H (14-36) U/L Creatine Kinase 1072 H* (30-135) U/L Total Protein 5.3 L (6.3-8.2) g/dL Albumin 2.9 L (3.5-5.0) g/dL 10/04/19 Range/Units 20:37 RBC (3.80-5.40) m/uL Hgb (11.4-16.0) gm/dL Hct (34.0-46.0) % RDW (11.5-15.5) % Neutrophils # (1.3-7.7) k/uL Chloride (98-107) mmol/L BUN (7-17) mg/dL Creatinine (0.52-1.04) mg/dL POC Glucose (mg/dL) 116 H (75-99) mg/dL Calcium (8.4-10.2) mg/dL AST (14-36) U/L Creatine Kinase (30-135) U/L Total Protein (6.3-8.2) g/dL Albumin (3.5-5.0) g/dL Microbiology - Last 24 Hours (Table) 10/01/19 18:31 Blood Culture - Preliminary Blood No Growth after 72 hours Assessment and Plan (1) Acute kidney injury superimposed on chronic kidney disease Current Visit: Yes Status: Acute Code(s): N17.9 - ACUTE KIDNEY FAILURE, UNSPECIFIED; N18.9 - CHRONIC KIDNEY DISEASE, UNSPECIFIED SNOMED Code(s): 20582324 (2) Diabetic ulcer of right foot associated with diabetes mellitus due to underlying condition Current Visit: Yes Status: Acute Code(s): E08.621 - DIABETES MELLITUS DUE TO UNDERLYING CONDITION W FOOT ULCER; L97.519 - NON-PRS CHRONIC ULCER OTH PRT RIGHT FOOT W UNSP SEVERITY SNOMED Code(s): 865911003 (3) Anemia Current Visit: Yes Status: Acute Code(s): D64.9 - ANEMIA, UNSPECIFIED SNOMED Code(s): 881352731 (4) Dehydration Current Visit: Yes Status: Acute Code(s): E86.0 - DEHYDRATION SNOMED Code(s): 21912746 (5) GI bleed Current Visit: Yes Status: Acute Code(s): K92.2 - GASTROINTESTINAL HEMORRHAGE, UNSPECIFIED SNOMED Code(s): 42436436 (6) Hyperkalemia Current Visit: Yes Status: Acute Code(s): E87.5 - HYPERKALEMIA SNOMED Code(s): 00875419 (7) Sepsis Current Visit: Yes Status: Acute Code(s): A41.9 - SEPSIS, UNSPECIFIED ORGANISM SNOMED Code(s): 15263436 (8) UTI (urinary tract infection) Current Visit: Yes Status: Acute Code(s): N39.0 - URINARY TRACT INFECTION, SITE NOT SPECIFIED SNOMED Code(s): 95971413 (9) Cerebrovascular accident Current Visit: No Status: Acute Code(s): I63.9 - CEREBRAL INFARCTION, UNSPECIFIED SNOMED Code(s): 544572326 (10) Diabetes mellitus type 2, uncontrolled, with complications Current Visit: No Status: Acute Code(s): E11.8 - TYPE 2 DIABETES MELLITUS WITH UNSPECIFIED COMPLICATIONS; E11.65 - TYPE 2 DIABETES MELLITUS WITH HYPERGLYCEMIA SNOMED Code(s): 07576875 (11) Peripheral artery disease Current Visit: No Status: Acute Code(s): I73.9 - PERIPHERAL VASCULAR DISEASE, UNSPECIFIED SNOMED Code(s): 624524278 (12) Smoker Current Visit: No Status: Acute Code(s): F17.200 - NICOTINE DEPENDENCE, UNSPECIFIED, UNCOMPLICATED SNOMED Code(s): 75159821 (13) Dyslipidemia Current Visit: No Status: Chronic Code(s): E78.5 - HYPERLIPIDEMIA, UNSPECIFIED SNOMED Code(s): 329826118 (14) Hypertension Current Visit: No Status: Chronic Code(s): I10 - ESSENTIAL (PRIMARY) HYPERTENSION SNOMED Code(s): 31934230 Plan: Continue to check for GI bleeding and hemoglobin is stable at 9.1. Patient will undergo physical therapy evaluation to see if we can extend her right extremity without difficulty. Continue to follow labs including CBC and renal function. Patient underwent GI evaluation may undergo EGD and colonoscopy as early as Tuesday for further evaluation.
[2019-10-04] MEDS: INSULIN DETEMIR (LEVEMIR) 100 UNIT/ML SYR SQ SCH (21:15)
--- NOTE | 2019-10-04 22:12 | PN ---
PROGRESS NOTE DATE OF DICTATION: 10/04/2019 The patient is a 58-year-old pleasant white female admitted to the hospital with acute severe symptomatic anemia with a hemoglobin of 5.3, requiring 4 units of blood transfusion. Today hemoglobin is 9.4 g/dL. She had some dark-colored stools at the time of admission to the hospital. Since being in the hospital she is doing well. She also had acute kidney injury. Overall her condition is improving. She is more awake and alert today. She denies any abdominal pain. No nausea, vomiting. PHYSICAL EXAMINATION: Appears comfortable. No apparent distress. VITAL SIGNS: Stable. Blood pressure is 137/66, pulse rate 67, temperature 99.1. HEENT examination unremarkable. Conjunctivae pink. Sclerae anicteric. Oral cavity no lesions. NECK: No JVD or lymph node enlargement. CHEST: Clear to auscultation. HEART: Regular rate and rhythm. ABDOMEN: Soft. Bowel sounds are positive. No organomegaly. EXTREMITIES: No pedal edema. SKIN: No rashes. NEUROLOGIC: Alert and oriented x3. No focal deficits. LABS: Labs from today show WBC 10.0, hemoglobin 9.4, platelets normal. Basic metabolic panel showed a BUN of 112 and creatinine 4.48. IMPRESSION: 1. Severe symptomatic anemia with a hemoglobin of 5.3, requiring total of 4 units of packed RBC transfusion. Today hemoglobin is 9.5 g/dL. She had some dark stool at the time of admission to the hospital, but she has been stable since then. No active bleeding noted. 2. Acute kidney injury, gradually improving. 3. History of diabetes mellitus and hypertension. 4. History of hypercholesteremia. RECOMMENDATIONS: Will proceed with EGD and colonoscopy tomorrow. I discussed with the patient risks, benefits and complications, and she is agreeable to it. In the meantime, will monitor CBC on a daily basis, continue with Protonix 40 mg daily, and further recommendations will follow based on the endoscopy results. Thank you for this consultation. MMODL / IJN: [id number] /
[2019-10-05] MEDS: MORPHINE SULFATE 4 MG/ML SYRINGE IV PRN ×3 (02:16→17:22)
[2019-10-05] MEDS: MEROPENEM 1 GM in SODIUM CHLORIDE 0.9% 100 ML IVPB SCH ×2 (02:17→17:16)
[2019-10-05 06:54] LABS: Glucose,Whole Blood 77 mg/dL (75-99)
[2019-10-05] MEDS: INSULIN ASPART (NovoLOG) 100 UNIT/ML VIAL SQ SCH ×4 (07:05→20:05)
[2019-10-05] MEDS: PANTOPRAZOLE 40 MG/10 ML VIAL IV SCH (07:48)
[2019-10-05] MEDS: CITALOPRAM HYDROBROMIDE 20 MG TAB PO SCH (07:48)
[2019-10-05] MEDS: GABAPENTIN 100 MG CAP PO SCH ×3 (07:48→20:05)
[2019-10-05] MEDS: NYSTATIN 100,000 UNIT/ML SUSP 500,000 UNIT/5 ML CUP PO SCH ×4 (07:49→20:06)
[2019-10-05] MEDS: ATENOLOL 50 MG TAB PO SCH (07:59)
[2019-10-05] MEDS: SODIUM CHLORIDE 0.9% 1,000 ML IV SCH ×2 (07:59→20:04)
[2019-10-05 08:13] LABS: Calcium 6.7 mg/dL (8.4-10.2); Magnesium 1.1 mg/dL (1.6-2.3); Potassium 3.1 mmol/L (3.5-5.1)
[2019-10-05] MEDS ORDERED: LIDOCAINE 1% INJ 10MG/ML (20 ML MDV) ONE (10:04)
[2019-10-05] MEDS ORDERED: PROPOFOL 10 MG/ML 20 ML VIAL IV ONE (10:04)
[2019-10-05] MEDS ORDERED: IV FLUID CONTINUATION 900 ML IV ONE (10:08)
--- NOTE | 2019-10-05 10:24 | P.PCN ---
Date of Procedure: 10/05/19 Procedure(s) Performed: Brief history: Patient is a pleasant 58-year-old white female admitted hospital with severe symptomatic anemia and acute kidney injury hemoglobin of 5.3 g/dL. She did say 4 units of blood transfusion and her last hemoglobin is 9.5 g/dL. She had some darker stools for the time of admission to hospital. She denies any rectal bleeding scheduled for an upper endoscopy as well as colonoscopy as a part of evaluation of and severe anemia. Procedure performed: Esophagogastroduodenoscopy with biopsy Preoperative diagnosis: Severe symptomatic anemia with hemoglobin of 5.6 g/dL Anesthesia: MAC Procedure: After informed consent was obtained from the patient was brought into the endoscopy unit and IV sedation was administered by anesthesia under continuous monitoring. Initially upper endoscopy was done. The Olympus GF 160 video endoscope was inserted inserted into the mouth and esophagus intubated without any difficulty and was gradually advanced into the stomach and duodenum and carefully examined. The bulb and second part of the duodenum appeared normal. Biopsies were done from the duodenum to rule out celiac disease. The scope was then withdrawn into the stomach adequately insufflated with air and upon careful examination the antrum had gastritis and biopsies were done from this area. The body, cardia and fundus appeared normal. The scope was then withdrawn into the esophagus. The GE junction was located at 40 cm to the incisors. It appeared regular with a 2 superficial erosions consistent with LA grade B reflux esophagitis. Rest of esophagus appeared normal and the patient tolerated the procedure well At this time the patient continued to remain sedation. Colonoscopy could not be done because there was significant amount of thick liquid stool coming out of the rectum and because of the poor prep and be rescheduled for tomorrow Impression: 1. Upper endoscopy revealed mild antral gastritis, duodenitis and mild esophagitis 2, Colonoscopy not performed because of extremely poor prep Recommendations: Findings of this examination were discussed with the patient She'll continue with a clear liquid diet and finish a GoLYTELY prep and colonoscopy will be rescheduled for tomorrow.
--- NOTE | 2019-10-05 11:18 | CDI ---
Documentation Clarification Form Date: 10/05/2019 10:47:13 AM From: Clare Molina RN, CCDS Admit Date: 10/01/2019 07:38:00 PM Patient Name: Priya Mars Visit Number: [id number] ATTENTION: The Clinical Documentation Specialists (CDI) and [facility] Coding Staff appreciate your assistance in clarifying documentation. Please respond to the clarification below the line at the bottom and electronically sign. The CDI & [facility] Coding staff will review the response and follow-up if needed. Please note: Queries are made part of the Legal Health Record. If you have any questions, please contact the author of this message via ITS. Dr. Jason Blackwell CKD is documented in the 10/01 GI Consult and the Attending progress Notes and requires further specificity. History/Risk Factors: DM, Acute blood loss anemia, Dehydration, GIB, Sepsis, UTI, hypotension 08/09/2019 Patients Historical BUN/CR/GFR: 34/./ Clinical Indicators: 10/03 Attending Progress Note: Acute kidney injury superimposed on chronic kidney disease 09/30-10/04 Current BUN: 172/143/131/112/94 CR: 7.46/5.43/5.05/4.48/3.95 GFR: 10/14//02/17 Treatment: 10/03 Nephro: ".Acute kidney injury secondary to ATN secondary to hypotension and acute blood loss anemia. Creatinine 7.46 on admission and is 4.48 today. Baseline creatinine near 1. Nonoliguric. Elevated BUN which is due to acute renal failure as well as GI bleed. No hydronephrosis noted on kidney ultrasound.2. Acute blood loss anemia status post blood transfusions. Iron replete. GI following. She also received IV DDAVP on admission. 3. Hyperkalemia secondary to acute kidney injury, GI bleed, metabolic acidosis and further worsened with the use of lisinopril. Resolved. 4. Metabolic acidosis secondary to acute kidney injury as well as use of metformin in the setting of impaired kidney function improved. 09/30-10/02 D5 w HCO3 Gtt 09/30 2L 0.9% NS IVF Bolus followed by 100 cc/hr In order to capture the severity of condition, please clarify the stage of the CKD, if known: CKD Stage 1 (GFR > 90) CKD Stage 2 (GFR 60-89) CKD Stage 3 (GFR 30-59) CKD Stage 4 (GFR 15-29) CKD Stage 5 (GFR <15) ESRD Other, please specify Unable to determine (Last Revision: June 2019) atn MTDD
[2019-10-05 11:54] LABS: Glucose,Whole Blood 81 mg/dL (75-99)
[2019-10-05] MEDS ORDERED: POTASSIUM CHLORIDE ER 20 MEQ TAB.ER PO STA (12:02)
--- NOTE | 2019-10-05 12:18 | P.PN ---
Subjective Patient is seen in follow-up for acute kidney injury. Patient's creatinine in August 2019 was near 1. Creatinine was over 7 on admission and she was also noted to be severely hyperkalemic and acidotic. She is currently maintained on normal saline. Creatinine is down to 3.95 today. Hemoglobin improved post blood transfusions. Denies chest pain or shortness of breath. Nonoliguric. Vital signs are stable. General: The patient appeared well nourished and normally developed. HEENT: Head exam is unremarkable. Neck is without jugular venous distension. LUNGS: Lungs are clear to auscultation and percussion. Breath sounds decreased. HEART: Rate and Rhythm are regular. ABDOMEN: Soft, no distention. EXTREMITITES: No edema. Left BKA noted. Objective - Vital Signs Vital signs: Vital Signs Temp 98 F 10/05/19 07:29 Pulse 73 10/05/19 08:00 Resp 16 10/05/19 08:00 BP 131/73 10/05/19 07:29 Pulse Ox 91 L 10/05/19 07:29 Intake & Output 10/04/19 10/05/19 10/05/19 18:59 06:59 18:59 Intake Total 500 800 200 Output Total 2500 950 Balance -2000 -150 200 Weight 71.6 kg Intake: IV 500 200 Sodium Chloride 0.9% 1, 500 000 ml @ 75 mls/hr IV . [id number] [facility] Rx#:[id number] Oral 800 Output: Urine 2500 950 Other: Voiding Method Indwelling Catheter Indwelling Catheter Indwelling Catheter # Voids 1 # Bowel Movements 1 - Labs CBC & Chem 7: 10/04/19 07:11 10/05/19 06:29 Labs: Abnormal Lab Results - Last 24 Hours (Table) 10/04/19 10/05/19 Range/Units 20:37 06:29 Potassium 3.1 L (3.5-5.1) mmol/L BUN 94 H (7-17) mg/dL Creatinine 3.95 H (0.52-1.04) mg/dL Glucose 66 L (74-99) mg/dL POC Glucose (mg/dL) 116 H (75-99) mg/dL Calcium 6.7 L (8.4-10.2) mg/dL Magnesium 1.1 L (1.6-2.3) mg/dL Creatine Kinase 681 H (30-135) U/L Microbiology - Last 24 Hours (Table) 10/01/19 18:31 Blood Culture - Preliminary Blood No Growth after 72 hours Assessment and Plan Plan: Assessment: 1. Acute kidney injury secondary to ATN secondary to hypotension and acute blood loss anemia. Creatinine 7.46 on admission and is 3.95 today. Baseline creatinine near 1. Nonoliguric. Elevated BUN which is due to acute renal failure as well as GI bleed. No hydronephrosis noted on kidney ultrasound. 2. Acute blood loss anemia status post blood transfusions. Iron replete. GI following. She also received IV DDAVP on admission. Underwent EGD this morning which revealed mild antral gastritis, duodenitis and esophagitis. Colonoscopy scheduled for tomorrow. 3. Hypokalemia from poor oral intake and hypomagnesemia. 4. Metabolic acidosis secondary to acute kidney injury as well as use of metformin in the setting of impaired kidney function. Improved. 5. Insulin-dependent diabetes mellitus. 6. Moderate pulmonary hypertension. 7. Benign hypertension. Controlled. 8. UTI with urine culture positive for Klebsiella maintained on antibiotics. 9. Hypomagnesemia from poor intake and GI losses. Plan: Maintain normal saline at 75 mL an hour. Continue to monitor renal function and urine output. Decreases dose of gabapentin to 100 mg 3 times daily. Hold Lipitor due to elevated CK better.- No urgent need for renal replacement therapy at this time. Continue to assess on daily basis. Replace potassium and magnesium.
[2019-10-05] MEDS: MAGNESIUM SULFATE-D5W PMX 1 GM in DEXTROSE/WATER 1 100ML.BAG IVPB SCH ×3 (12:27→15:26)
--- NOTE | 2019-10-05 14:59 | P.PN ---
Subjective Progress Note Date: 10/05/19 Principal diagnosis: Sepsis secondary to urinary tract infection, GI bleed The patient is seen today 10/05/2019 in follow-up on the regular medical floor. She is awake and alert in no acute distress. She is status post 4 units of packed red blood cells this admission. She did undergo upper endoscopy that revealed mild antral gastritis, duodenitis and mild esophagitis. Colonoscopy canceled due to poor prep. No shortness of breath, cough or congestion. Maintaining O2 saturations in the 90s on room air. She's afebrile. Urine culture was positive for Klebsiella pneumoniae a. Blood cultures reveal no growth. Sodium 142. Potassium 3.1. Creatinine 3.95. She is continued on meropenem. Continued on IV Protonix. Objective - Vital Signs Vital signs: Vital Signs Temp 98 F 10/05/19 07:29 Pulse 73 10/05/19 08:00 Resp 16 10/05/19 08:00 BP 131/73 10/05/19 07:29 Pulse Ox 91 L 10/05/19 07:29 Intake & Output 10/04/19 10/05/19 10/05/19 18:59 06:59 18:59 Intake Total 500 800 200 Output Total 2500 950 Balance -2000 -150 200 Weight 71.6 kg Intake: IV 500 200 Sodium Chloride 0.9% 1, 500 000 ml @ 75 mls/hr IV . [id number] [facility] Rx#:[id number] Oral 800 Output: Urine 2500 950 Other: Voiding Method Indwelling Catheter Indwelling Catheter Indwelling Catheter # Voids 1 # Bowel Movements 1 3 - Exam GENERAL EXAM: Alert, pleasant 58-year-old female patient, on room air, comfortable in no apparent distress. HEAD: Normocephalic. EYES: Normal reaction of pupils, equal size. NOSE: Clear with pink turbinates. THROAT: No erythema or exudates. NECK: No masses, no JVD. CHEST: No chest wall deformity. LUNGS: Equal air entry with few scattered crackles CVS: S1 and S2 normal with no audible murmur, regular rhythm. ABDOMEN: No hepatosplenomegaly, normal bowel sounds, no guarding or rigidity. SPINE: No scoliosis or deformity SKIN: No rashes CENTRAL NERVOUS SYSTEM: No focal deficits, tone is normal in all 4 extremities. EXTREMITIES: Left nslff-zwg-ignl amputation. There is no peripheral edema. No clubbing, no cyanosis. Peripheral pulses are intact. - Labs CBC & Chem 7: 10/04/19 07:11 10/05/19 06:29 Labs: Abnormal Lab Results - Last 24 Hours (Table) 10/04/19 10/05/19 Range/Units 20:37 06:29 Potassium 3.1 L (3.5-5.1) mmol/L BUN 94 H (7-17) mg/dL Creatinine 3.95 H (0.52-1.04) mg/dL Glucose 66 L (74-99) mg/dL POC Glucose (mg/dL) 116 H (75-99) mg/dL Calcium 6.7 L (8.4-10.2) mg/dL Magnesium 1.1 L (1.6-2.3) mg/dL Creatine Kinase 681 H (30-135) U/L Microbiology - Last 24 Hours (Table) 10/01/19 18:31 Blood Culture - Preliminary Blood No Growth after 72 hours Assessment and Plan Assessment: 1 Sepsis secondary to Klebsiella pneumoniae urinary tract infection 2 Acute blood loss anemia status post 4 units of packed red blood cells this admission. EGD performed today revealed evidence of mild esophagitis, gastritis, duodenitis. Unable to perform colonoscopy due to poor prep. 3 Acute kidney injury with hyperkalemia and anion gap metabolic acidosis, r ecovered 4 History of old left cerebellar infarct 5 Diabetes mellitus 6 Hyperlipidemia 7 Benign essential hypertension 8 Degenerative joint disease 9 Peripheral artery disease 10 Left gnupn-qxg-jvdm amputation 11 Chronic right heel ulcer 12 Previous history of chronic tobacco dependence Plan: The patient was seen and evaluated by Dr. Julio She is stable from the pulmonary and critical care standpoint Continue meropenem EGD results reviewed Continue Protonix We'll continue to follow I, the cosigning physician, performed a history & physical examination of the patient. Lungs sounds with few scattered crackles. Maintaining good O2 saturations in the 90s on room air. I discussed the assessment and plan of care with my nurse practitioner, Yulissa Bradley. I attest to the above note as dictated by her.
[2019-10-05 17:12] LABS: Glucose,Whole Blood 113 mg/dL (75-99)
--- NOTE | 2019-10-05 17:39 | P.PN ---
Subjective Progress Note Date: 10/05/19 This is a 58-year-old female admitted with multiple medical issues, scheduled for EGD and colonoscopy today. Hemoglobin 3.1, receiving supplements as per nephrology. Creatinine trending down, 3.95. Urine cultures reporting Klebsiella/ESBL. Preliminary blood cultures reporting no growth. Afebrile currently, T-max 99.1. Maintained on Merrem. Objective - Vital Signs Vital signs: Vital Signs Temp 98.2 F 10/05/19 14:28 Pulse 64 10/05/19 14:28 Resp 16 10/05/19 14:28 BP 149/79 10/05/19 14:28 Pulse Ox 96 10/05/19 14:28 Intake & Output 10/04/19 10/05/19 10/05/19 18:59 06:59 18:59 Intake Total 500 800 200 Output Total 2500 950 Balance -2000 -150 200 Weight 71.6 kg Intake: IV 500 200 Sodium Chloride 0.9% 1, 500 000 ml @ 75 mls/hr IV . [id number] [facility] Rx#:[id number] Oral 800 Output: Urine 2500 950 Other: Voiding Method Indwelling Catheter Indwelling Catheter Indwelling Catheter # Voids 1 # Bowel Movements 1 3 - Exam GENERAL: This is a 58-year-old in no apparent distress at the time of examination. Pleasant and cooperative. HEENT: Head is atraumatic, normocephalic. Pupils are equal, round, and reactive to light. Sclerae anicteric. Conjunctivae are clear. Mucus membranes of the mouth are moist. Neck is supple. RESPIRATORY: Clear to auscultation. No rhonchi, occasional fine crackles, no wheezes. No use of accessory muscles. Patient maintaining oxygen saturation greater than 92%. No chest wall tenderness is noted on palpation or with deep breathing. CARDIOVASCULAR: Regular rate and rhythm. S1 and S2 noted. No systolic or diastolic murmur auscultated. No JVD noted. No S3 or S4 noted. GASTROINTESTINAL: No distention noted. Abdomen soft and round. Normal active bowel sounds auscultated x 4 quadrants. No pain or tenderness noted upon palpation. INTEGUMENTARY: Multiple contusions to her right knee. Dressing placed on her right foot. Left minfy-gph-flgj amputation stump intact with known multiple bruising on the left knee.. EXTREMITIES: Left elskw-ytm-patf amputation. Ulcerations on right foot currently under wound care by Dr. Hunt at [facility]. New marie sized blister right inner medial foot,dry NEUROLOGIC: Cranial nerves II-XII intact. PSYCHIATRIC: Awake, alert, and oriented X 2. Appropriate affect. Microbiology 10/01/19 17:07 Urine,Catheterized Urine Culture - Preliminary Klebsiella pneumoniae 10/01/19 18:31 Blood Blood Culture - Preliminary No Growth after 72 hours - Labs CBC & Chem 7: 10/04/19 07:11 10/05/19 06:29 Labs: Abnormal Lab Results - Last 24 Hours (Table) 10/04/19 10/05/19 10/05/19 Range/Units 20:37 06:29 17:10 Potassium 3.1 L (3.5-5.1) mmol/L BUN 94 H (7-17) mg/dL Creatinine 3.95 H (0.52-1.04) mg/dL Glucose 66 L (74-99) mg/dL POC Glucose (mg/dL) 116 H 113 H (75-99) mg/dL Calcium 6.7 L (8.4-10.2) mg/dL Magnesium 1.1 L (1.6-2.3) mg/dL Creatine Kinase 681 H (30-135) U/L Microbiology - Last 24 Hours (Table) 10/01/19 17:07 Urine Culture - Preliminary Urine,Catheterized Klebsiella pneumoniae 10/01/19 18:31 Blood Culture - Preliminary Blood No Growth after 72 hours Assessment and Plan Assessment: (1) Sepsis secondary to acute UTI with Klebsiella pneumonia, ESBL Current Visit: Yes Status: Acute Code(s): A41.9 - SEPSIS, UNSPECIFIED ORGANISM SNOMED Code(s): 41281949 Current Visit: Yes Status: Acute Code(s): N39.0 - URINARY TRACT INFECTION, SITE NOT SPECIFIED SNOMED Code(s): 62643911 (2) Acute kidney injury superimposed on chronic kidney disease Current Visit: Yes Status: Acute Code(s): N17.9 - ACUTE KIDNEY FAILURE, UNSPECIFIED; N18.9 - CHRONIC KIDNEY DISEASE, UNSPECIFIED SNOMED Code(s): 85312226 (3) Anemia, acute blood loss, status post 4 units packed RBCs transfused Current Visit: Yes Status: Acute Code(s): D64.9 - ANEMIA, UNSPECIFIED SNOMED Code(s): 780196249 (4) Dehydration Current Visit: Yes Status: Acute Code(s): E86.0 - DEHYDRATION SNOMED Code(s): 66367414 (5) GI bleed Current Visit: Yes Status: Acute Code(s): K92.2 - GASTROINTESTINAL HEMORRHAGE, UNSPECIFIED SNOMED Code(s): 53097470 (6) Hyperkalemia Current Visit: Yes Status: Acute Code(s): E87.5 - HYPERKALEMIA SNOMED Code(s): 14219515 (7) Diabetic ulcer of right foot associated with diabetes mellitus due to underlying condition Current Visit: Yes Status: Acute Code(s): E08.621 - DIABETES MELLITUS DUE TO UNDERLYING CONDITION W FOOT ULCER; L97.519 - NON-PRS CHRONIC ULCER OTH PRT RIGHT FOOT W UNSP SEVERITY SNOMED Code(s): 774772194 (8) hypokalemia (9) Cerebrovascular accident Current Visit: No Status: Acute Code(s): I63.9 - CEREBRAL INFARCTION, UNSPECIFIED SNOMED Code(s): 987836339 (10) Diabetes mellitus type 2, uncontrolled, with complications Current Visit: No Status: Acute Code(s): E11.8 - TYPE 2 DIABETES MELLITUS WITH UNSPECIFIED COMPLICATIONS; E11.65 - TYPE 2 DIABETES MELLITUS WITH HYPERGLYCEMIA SNOMED Code(s): 58400775 (11) Peripheral artery disease Current Visit: No Status: Acute Code(s): I73.9 - PERIPHERAL VASCULAR DISEASE, UNSPECIFIED SNOMED Code(s): 135631962 (12) Smoker Current Visit: No Status: Acute Code(s): F17.200 - NICOTINE DEPENDENCE, UNSPECIFIED, UNCOMPLICATED SNOMED Code(s): 54472561 (13) Dyslipidemia Current Visit: No Status: Chronic Code(s): E78.5 - HYPERLIPIDEMIA, UNSPECIFIED SNOMED Code(s): 144488038 (14) Hypertension Current Visit: No Status: Chronic Code(s): I10 - ESSENTIAL (PRIMARY) HYPERTENSION SNOMED Code(s): 26167105 Plan: Continue on current medication regime ,monitoring and symptomatic treatment. EGD and colonoscopy scheduled today. Maintain PPI. Electrolyte supplements as per nephrology. Infectious disease consulted regarding UTI. Close monitoring of CBC, renal function with repeat labs ordered for a.m. PT/OT- recommending subacute rehab at discharge. Social work consulted. The impression and plan of care has been dictated as directed. : I performed a history and examination of this patient, discussed the same with the dictator. I agree with the dictator's note ,documented as a scribe. Any additional findings or plans will be noted.
[2019-10-05 19:58] LABS: Glucose,Whole Blood 162 mg/dL (75-99)
[2019-10-05] MEDS: INSULIN DETEMIR (LEVEMIR) 100 UNIT/ML SYR SQ SCH (20:02)
[2019-10-05] MEDS: BACLOFEN 10 MG TAB PO PRN (20:05)
[2019-10-06] MEDS: SODIUM CHLORIDE 0.9% 1,000 ML IV SCH ×2 (04:42→12:30)
[2019-10-06] MEDS: MEROPENEM 1 GM in SODIUM CHLORIDE 0.9% 100 ML IVPB SCH ×2 (04:42→14:21)
[2019-10-06 06:55] LABS: Glucose,Whole Blood 112 mg/dL (75-99)
[2019-10-06] MEDS: INSULIN ASPART (NovoLOG) 100 UNIT/ML VIAL SQ SCH ×4 (06:57→21:38)
[2019-10-06] MEDS: MORPHINE SULFATE 4 MG/ML SYRINGE IV PRN ×3 (07:18→19:51)
[2019-10-06 08:13] LABS: Basophils % (A) 0 %; Eosinophils # (A) 0.3 k/uL (0-0.7); Eosinophils % (A) 3 %; HCT 28.1 % (34.0-46.0); HGB 9.4 gm/dL (11.4-16.0); Lymphocytes # (A) 1.4 k/uL (1.0-4.8); Lymphocytes % (A) 15 %; MCH 29.8 pg (25.0-35.0); MCHC 33.7 g/dL (31.0-37.0); MCV 88.6 fL (80.0-100.0); Mean Platelet Volume 9.8; Monocytes # (A) 0.6 k/uL (0-1.0); Monocytes % (A) 6 %; Neutrophils # (A) 6.9 k/uL (1.3-7.7); Neutrophils % (A) 74 %; Platelet Count 207 k/uL (150-450); RBC 3.17 m/uL (3.80-5.40); RDW 15.9 % (11.5-15.5); WBC 9.4 k/uL (3.8-10.6)
[2019-10-06 08:26] LABS: Calcium 7.4 mg/dL (8.4-10.2)
[2019-10-06] MEDS: NYSTATIN 100,000 UNIT/ML SUSP 500,000 UNIT/5 ML CUP PO SCH ×4 (09:12→21:45)
[2019-10-06] MEDS: GABAPENTIN 100 MG CAP PO SCH ×3 (09:12→19:51)
[2019-10-06] MEDS: ATENOLOL 50 MG TAB PO SCH (09:20)
[2019-10-06] MEDS: PANTOPRAZOLE 40 MG/10 ML VIAL IV SCH (09:29)
[2019-10-06] MEDS ORDERED: Potassium Replacement Protocol 1 EACH MISC MISCELLANE PRN (10:59)
[2019-10-06] MEDS ORDERED: IV FLUID CONTINUATION 700 ML IV ONE (11:27)
--- NOTE | 2019-10-06 12:05 | P.PCN ---
Date of Procedure: 10/06/19 Description of Procedure: BRIEF HISTORY: Patient is a 58-year-old female admitted to the hospital with severe symptomatic anemia and acute kidney injury with a hemoglobin of 5.3 on presentation. She received 4 units of PRBCs and hemoglobin has subsequently remained stable currently and 9.4. She did report some dark Colored bowel movements at time of admission but denied any rectal bleeding. Only mild gastritis found on upper endoscopy with some associated duodenitis and mild esophagitis. No active bleeding found at that time. Colonoscopy was aborted due to extremely poor prep. PROCEDURE PERFORMED: Colonoscopy with biopsy. PREOPERATIVE DIAGNOSIS: Anemia, melena. ESTIMATED BLOOD LOSS: Minimal. IV sedation per Anesthesia. PROCEDURE: After informed consent was obtained, the patient, was brought into the endoscopy unit. IV sedation was administered by Anesthesia under continuous monitoring. Digital rectal examination was normal. Initially the Olympus CF-190 flexible video colonoscope was then inserted in the rectum, gradually advanced into the cecum without any difficulty. Careful examination was performed as the scope was gradually being withdrawn. Ileocecal valve and the appendiceal orifice were visualized and appeared normal. Prep was poor with liquid stool noted throughout the colon with some solid components in the stool, prohibiting complete visualization of the mucosa. Mucosa of the cecum, ascending colon, transverse colon, descending colon, sigmoid colon, and rectum which was visualized and appeared normal and there was no evidence of old blood or active bleeding. The patient had moderate sigmoid diverticulosis with multiple small and large mouth diverticula noted in the sigmoid colon. She also had mild internal hemorrhoids on retroflexion in the rectum as well as a heaped up area which appeared to possibly be a healing ulcer which was biopsied. Retroflexion was performed in the rectum and no lesions were seen. The patient tolerated the procedure well. IMPRESSION: No active bleeding, old blood or pathology to explain anemia. Normal-appearing colon from rectum to cecum, however complete visualization of the mucosa was impaired due to poor prep. Moderate sigmoid diverticulosis. Mild internal hemorrhoids. Rectal biopsies. RECOMMENDATIONS: Findings of this examination were discussed with the patien. Okay to resume diet. Continue to monitor hemoglobin and hematocrit and transfuse as needed. No plans for further endoscopic evaluation at this time. Continue other medical management from the primary team and consulting services. At this time the GI service will stand by, please call us back with any questions or concerns.
[2019-10-06 12:20] LABS: Glucose,Whole Blood 112 mg/dL (75-99)
[2019-10-06] MEDS: POTASSIUM CHLORIDE ER 20 MEQ TAB.ER PO SCH ×4 (12:28→18:15)
[2019-10-06] MEDS: CITALOPRAM HYDROBROMIDE 20 MG TAB PO SCH (12:28)
[2019-10-06] MEDS: POTASSIUM CHLORIDE 10 MEQ in WATER FOR INJECTION 1 100ML.BAG IVPB SCH (12:32)
--- NOTE | 2019-10-06 13:25 | PN ---
PROGRESS NOTE Patient is seen for followup for acute kidney injury. Her renal function has been improving. Serum creatinine is down to 3.4 from 3.9 yesterday. Admission creatinine was 7.46. Currently patient is maintained on IV fluids at 75 mL an hour. Pt is gone for Colonoscopy. Vital signs are reviewed and labs are reviewed as well. Repeat labs in am. Continue IVF. MMROSALIAL / IJN: [id number] / BILL
--- NOTE | 2019-10-06 15:09 | P.PN ---
Subjective Progress Note Date: 10/06/19 Principal diagnosis: Sepsis secondary to urinary tract infection, GI bleed The patient is seen today 10/05/2019 in follow-up on the regular medical floor. She is awake and alert in no acute distress. She is status post 4 units of packed red blood cells this admission. She did undergo upper endoscopy that revealed mild antral gastritis, duodenitis and mild esophagitis. Colonoscopy canceled due to poor prep. No shortness of breath, cough or congestion. Maintaining O2 saturations in the 90s on room air. She's afebrile. Urine culture was positive for Klebsiella pneumoniae a. Blood cultures reveal no growth. Sodium 142. Potassium 3.1. Creatinine 3.95. She is continued on meropenem. Continued on IV Protonix. The patient is seen today 10/06/2019 in follow-up on the regular medical floor. She remains awake and alert in no acute distress. Urine culture was positive for Klebsiella pneumoniae. Blood cultures reveal no growth. White count 9.4. Hemoglobin 9.4. Sodium 139. Potassium 3.0. Creatinine 3.44. She is continued on 0.9 normal saline at 75 ML's per hour. Antibiotics in the form of meropenem. She did undergo colonoscopy this morning. No active bleeding old blood or pathology to explain anemia. Normal-appearing colon from rectum to cecum. Moderate sigmoid diverticulosis. Objective - Vital Signs Vital signs: Vital Signs Temp 99.3 F 10/06/19 07:00 Pulse 65 10/06/19 09:16 Resp 17 10/06/19 07:00 BP 146/72 10/06/19 09:16 Pulse Ox 95 10/06/19 09:14 Intake & Output 10/05/19 10/06/19 10/06/19 18:59 06:59 18:59 Intake Total 497 304 5399 Output Total 1600 Balance 200 -1100 1100 Intake: IV 200 1100 Sodium Chloride 0.9% 1, 600 000 ml @ 75 mls/hr IV . [id number] [facility] Rx#:[id number] Oral 500 Output: Urine 1600 Other: Voiding Method Indwelling Catheter Indwelling Catheter Indwelling Catheter # Voids 1 # Bowel Movements 3 2 1 - Exam GENERAL EXAM: Alert, pleasant 58-year-old female patient, on room air, comfortable in no apparent distress. HEAD: Normocephalic. EYES: Normal reaction of pupils, equal size. NOSE: Clear with pink turbinates. THROAT: No erythema or exudates. NECK: No masses, no JVD. CHEST: No chest wall deformity. LUNGS: Equal air entry with few scattered crackles CVS: S1 and S2 normal with no audible murmur, regular rhythm. ABDOMEN: No hepatosplenomegaly, normal bowel sounds, no guarding or rigidity. SPINE: No scoliosis or deformity SKIN: No rashes CENTRAL NERVOUS SYSTEM: No focal deficits, tone is normal in all 4 extremities. EXTREMITIES: Left dqrbf-ese-rbrs amputation. There is no peripheral edema. No clubbing, no cyanosis. Peripheral pulses are intact. - Labs CBC & Chem 7: 10/06/19 07:46 10/06/19 07:46 Labs: Abnormal Lab Results - Last 24 Hours (Table) 10/05/19 10/05/19 10/06/19 Range/Units 17:10 19:57 06:53 RBC (3.80-5.40) m/uL Hgb (11.4-16.0) gm/dL Hct (34.0-46.0) % RDW (11.5-15.5) % Potassium (3.5-5.1) mmol/L BUN (7-17) mg/dL Creatinine (0.52-1.04) mg/dL Glucose (74-99) mg/dL POC Glucose (mg/dL) 113 H 162 H 112 H (75-99) mg/dL Calcium (8.4-10.2) mg/dL 10/06/19 10/06/19 10/06/19 Range/Units 07:46 07:46 12:19 RBC 3.17 L (3.80-5.40) m/uL Hgb 9.4 L (11.4-16.0) gm/dL Hct 28.1 L (34.0-46.0) % RDW 15.9 H (11.5-15.5) % Potassium 3.0 L (3.5-5.1) mmol/L BUN 82 H (7-17) mg/dL Creatinine 3.44 H (0.52-1.04) mg/dL Glucose 107 H (74-99) mg/dL POC Glucose (mg/dL) 112 H (75-99) mg/dL Calcium 7.4 L (8.4-10.2) mg/dL Microbiology - Last 24 Hours (Table) 10/01/19 18:31 Blood Culture - Preliminary Blood No Growth after 96 hours 10/01/19 17:07 Urine Culture - Preliminary Urine,Catheterized Klebsiella pneumoniae Assessment and Plan Assessment: 1 Sepsis secondary to Klebsiella pneumoniae urinary tract infection 2 Acute blood loss anemia status post 4 units of packed red blood cells this admission. EGD performed today revealed evidence of mild esophagitis, gastritis, duodenitis. Colonoscopy revealed no evidence of active bleeding or old blood to explain anemia. Normal-appearing colon from rectum to cecum. Moderate sigmoid diverticulosis. 3 Acute kidney injury with hyperkalemia and anion gap metabolic acidosis, recovered 4 History of old left cerebellar infarct 5 Diabetes mellitus 6 Hyperlipidemia 7 Benign essential hypertension 8 Degenerative joint disease 9 Peripheral artery disease 10 Left mlltb-pgf-rftc amputation 11 Chronic right heel ulcer 12 Previous history of chronic tobacco dependence Plan: The patient was seen and evaluated by Dr. Julio EGD results reviewed Colonoscopy results reviewed No active bleeding Continue Protonix We'll continue to follow I, the cosigning physician, performed a history & physical examination of the patient. Lungs sounds with few scattered crackles. Maintaining good O2 saturations in the 90s on room air. I discussed the assessment and plan of care with my nurse practitioner, Yulissa Bradley. I attest to the above note as dictated by her.
[2019-10-06 16:52] LABS: Glucose,Whole Blood 167 mg/dL (75-99)
--- NOTE | 2019-10-06 18:10 | PN ---
PROGRESS NOTE DATE OF SERVICE: 10/06/2019 I am covering for Dr. Armijo. This 58-year-old woman who was admitted with acute UTI with sepsis also had severe sepsis and hypotension. Patient also had significant lesion in the right foot. Patient had above-knee amputation of the left foot. The patient had multiple ulcers in the heel with stage 3-4, and also developed a blister, necrotic lesion in the lateral part of the right leg, possibly pressure related and the patient also had toe ulcers also. Patient closely monitored at this time. Multiple consultants following the patient closely. Otherwise creatinine 3.[address] Blackwell is recommending medication and no adjustment of renal replacement therapy at this time. Past medical history reviewed. REVIEW OF SYSTEMS: CARDIOVASCULAR SYSTEM: No angina. RESPIRATION: As mentioned earlier. GI mentioned earlier. : No dysuria. NERVOUS SYSTEM: No numbness or weakness. CURRENT MEDICATIONS: Reviewed and include: 1. Tylenol suppository 650 p.r.n. 2. Tenormin 50 mg. Lioresal. 3. Celexa. 4. Neurontin. 5. NovoLog. 6. Levemir. 7. Meropenem 1 g. 8. Morphine. 9. Zofran. 10.Protonix. 11.Doses reviewed. PHYSICAL EXAM: Patient is alert and oriented x3. Pulse 63, blood pressure 111/66, respiration 18, temperature 98 degrees, pulse ox 100 percent on room air. HEENT: Conjunctivae normal. NECK: No JVD. CARDIOVASCULAR: S1, S2. RESPIRATORY SYSTEM: Breath sounds diminished at the bases. A few scattered rhonchi. ABDOMEN: Soft. Legs: Left below-knee amputation. Right significant foot ulcerations present Skin as mentioned. LAB: WBC 9.2, hemoglobin 9.4, sodium 139, potassium 3. Creatinine 3.44. Microbiology urine culture showed Klebsiella, which is ESBL Klebsiella. ASSESSMENT: 1. Acute urinary tract infection with ESBL Klebsiella with sepsis C and severe sepsis, hypotension and septic shock, present on admission. 2. Acute renal failure possible acute tubular necrosis with prerenal factors. 3. Possible chronic kidney stage III baseline. 4. Significant right foot ulceration and as well as necrotic changes possibly pressure related. 5. Possible acute rhabdomyolysis present on admission. 6. Severe hyperkalemia secondary from acute renal failure. 7. Severe anemia normocytic, rule out gastrointestinal bleed. 8. Increased WBC secondary to sepsis. 9. Change in mental status acute metabolic encephalopathy. 10.Diabetes mellitus type 2. 11.Hypertension. 12.Hyperlipidemia. 13.History of degenerative joint disease. 14.History of chronic gout. 15.Carpal tunnel syndrome. 16.History of transient ischemic attack. 17.History of hysterectomy. 18.History of depression. 19.History of anxiety. 20.FULL CODE. RECOMMENDATIONS AND DISCUSSION: Recommend to continue current medications, and continue the broad-spectrum IV antibiotics. Otherwise, I would recommend cultures of the foot and also continue the IV fluids. Supplement potassium. Monitor lytes closely. Otherwise, vascular surgery consultation. Guarded prognosis. Further recommendations to follow. MMODL / IJN: [id number] / MTDD
[2019-10-06] MEDS: BACLOFEN 10 MG TAB PO PRN (19:51)
[2019-10-06 20:36] LABS: Glucose,Whole Blood 184 mg/dL (75-99)
[2019-10-06] MEDS: INSULIN DETEMIR (LEVEMIR) 100 UNIT/ML SYR SQ SCH (21:39)
--- NOTE | 2019-10-07 01:19 | P.CONS ---
History of Present Illness - Reason for Consult Consult date: 10/06/19 ESBL klebsiella UTI Requesting physician: Eliz Pastrana - Chief Complaint fall x 1 day - History of Present Illness Patient is a 58-year-old female presenting to the hospital about 5 days ago after apparently the patient did fell out of the bed and got wedged be tween the bed and the furniture and this patient was unable to get up or out of by herself patient did have history of peripheral arterial disease and is status post left leg amputation patient was brought into the ER and has been evaluated by ER physician on arrival to the ER the patient has been afebrile and no fever has been recorded with this admission she was noticed to have a anemia with hem oglobin of 5.8 he also have a positive UA: COVID-19 PCR was negative patient has been evaluated by GI and nephrology services and the patient is status post EGD on 10/05/2019 with evidence of mild gastritis colonoscopy: Performed because of poor prep urine culture subsequently finalized with ESBL/CRE Klebsiella patient will require adjust to meropenem 1 g every 12 infectious was consulted for furth er recommendation of antibiotic therapy patient mention she did have a Doran catheter placed in the ER and did not find have any Doran catheter at home currently denies having a significant suprapubic or flank pain no nausea no vomiting, patient also have a chronic ulcer to the right heel area with a blood blister to the right foot lateral border but not specifically the type of dressing she was unaware currently being treated with Kerlix and dry protective dressing. Review of Systems Positive point has been mentioned in HPI rest of the systems are negative Past Medical History Past Medical History: CVA/TIA, Diabetes Mellitus, Hyperlipidemia, Hypertension, Osteoarthritis (OA), Vascular Disorder Additional Past Medical History / Comment(s): chronic gout, carpal tunnel, TIA 2017-no residual effects. 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 stent rt leg 02/24 Past Anesthesia/Blood Transfusion Reactions: No Reported Reaction Past Psychological History: Depression Additional Psychological History / Comment(s): . Very anxious about current situation Smoking Status: Former smoker Past Alcohol Use History: None Reported Additional Past Alcohol Use History / Comment(s): started smoking age 17, cutdown to maybe a cigarette q few days, does not remember when she last smoked Past Drug Use History: None Reported - Past Family History Mother Additional Family Medical History / Comment(s): at age 47 from heart defect Father Family Medical History: CVA/TIA, Hyperlipidemia, Hypertension Additional Family Medical History / Comment(s): 2 strokes affected brain stem Medications and Allergies Home Medications Medication Instructions Recorded Confirmed Type Insulin Glargine,Hum.rec.anlog 25 unit SQ HS 03/29/17 10/02/19 History [Lantus Solostar] Allopurinol [Zyloprim] 300 mg PO QAM 10/21/17 10/02/19 History Colchicine [Colcrys] 0.6 mg PO DAILY 10/21/17 10/02/19 History Enalapril [Vasotec] 20 mg PO BID 02/27/19 10/02/19 History Atenolol [Tenormin] 50 mg PO DAILY 04/25/19 10/02/19 History Citalopram Hydrobromide [CeleXA] 40 mg PO DAILY 04/25/19 10/02/19 History Clopidogrel Bisulfate [Plavix] 75 mg PO HS 06/01/19 10/02/19 History Potassium Chloride [Klor-Con 20] 20 meq PO BID 06/01/19 10/02/19 History Cyclobenzaprine [Flexeril] 10 mg PO DAILY PRN 06/20/19 10/02/19 History metFORMIN HCL 500 mg PO BID 07/18/19 10/02/19 History Furosemide [Lasix] 40 mg PO DAILY #10 tablet 07/25/19 10/02/19 Rx Atorvastatin [Lipitor] 40 mg PO HS 10/02/19 10/02/19 History Gabapentin [Neurontin] 200 mg PO TID 10/02/19 10/02/19 History traMADol HCl [Ultram] 50 mg PO Q8H PRN 10/02/19 10/02/19 History Allergies Allergy/AdvReac Type Severity Reaction Status Date / Time sulfamethoxazole Allergy Itching Verified 10/01/19 14:43 [From Bactrim] trimethoprim [From Bactrim] Allergy Itching Verified 10/01/19 14:43 Physical Exam Vitals: Vital Signs Temp Pulse Resp BP Pulse Ox 10/06/19 19:45 98.7 F 64 16 116/72 98 10/06/19 15:00 98.0 F 63 18 111/66 100 10/06/19 09:16 65 146/72 10/06/19 09:14 63 95 10/06/19 07:00 99.3 F 56 L 17 144/80 96 10/06/19 04:00 16 10/06/19 02:30 98.6 F 59 L 16 117/69 95 10/05/19 23:48 15 Intake and Output 10/06/19 10/06/19 10/07/19 14:59 22:59 06:59 Intake Total 1100 Output Total 750 Balance 1100 -750 Intake: IV 1100 Sodium Chloride 0.9% 1, 600 000 ml @ 75 mls/hr IV . [id number] [facility] Rx#:[id number] Output: Urine 750 Other: Voiding Method Indwelling Catheter Indwelling Catheter # Voids 1 # Bowel Movements 1 GENERAL DESCRIPTION: Middle-aged female lying in bed, no distress. No tachypnea or accessory muscle of respiration use. HEENT: Shows Pallor , no scleral icterus. Oral mucous membrane is dry. NECK: Trachea central, no thyromegaly. LUNGS: Unlabored breathing. Clear to auscultation anteriorly. No wheeze or crackle. HEART: S1, S2, regular rate and rhythm. ABDOMEN: Soft, no tenderness , guarding or rigidity EXTREMITIES: Right foot lateral border did have a blood blister with a wound on the right heel area minimal slough tissue no surrounding redness or foul- smelling drainage. SKIN: No rash, no masses palpable. NEUROLOGICAL: The patient is awake, alert, oriented x3, mood and affect normal. Results CBC & Chem 7: 10/06/19 07:46 10/06/19 19:14 Labs: Abnormal Lab Results - Last 24 Hours (Table) 10/06/19 10/06/19 10/06/19 Range/Units 06:53 07:46 07:46 RBC 3.17 L (3.80-5.40) m/uL Hgb 9.4 L (11.4-16.0) gm/dL Hct 28.1 L (34.0-46.0) % RDW 15.9 H (11.5-15.5) % Potassium 3.0 L (3.5-5.1) mmol/L BUN 82 H (7-17) mg/dL Creatinine 3.44 H (0.52-1.04) mg/dL Glucose 107 H (74-99) mg/dL POC Glucose (mg/dL) 112 H (75-99) mg/dL Calcium 7.4 L (8.4-10.2) mg/dL 10/06/19 10/06/19 10/06/19 Range/Units 12:19 15:52 16:51 RBC (3.80-5.40) m/uL Hgb (11.4-16.0) gm/dL Hct (34.0-46.0) % RDW (11.5-15.5) % Potassium 3.3 L (3.5-5.1) mmol/L BUN (7-17) mg/dL Creatinine (0.52-1.04) mg/dL Glucose (74-99) mg/dL POC Glucose (mg/dL) 112 H 167 H (75-99) mg/dL Calcium (8.4-10.2) mg/dL 10/06/19 Range/Units 20:27 RBC (3.80-5.40) m/uL Hgb (11.4-16.0) gm/dL Hct (34.0-46.0) % RDW (11.5-15.5) % Potassium (3.5-5.1) mmol/L BUN (7-17) mg/dL Creatinine (0.52-1.04) mg/dL Glucose (74-99) mg/dL POC Glucose (mg/dL) 184 H (75-99) mg/dL Calcium (8.4-10.2) mg/dL Microbiology - Last 24 Hours (Table) 10/01/19 18:31 Blood Culture - Preliminary Blood No Growth after 120 hours Assessment and Plan Assessment: 1-patient with positive urine culture with multidrug-resistant Klebsiella pneumoniae which did show resistant to ertapenem in this patient did not have any fever or elevated white count with a concern for possible colonization versus mild cystitis 2-right foot wound with evidence of any cellulitis (1) UTI (urinary tract infection) Current Visit: Yes Status: Acute Code(s): N39.0 - URINARY TRACT INFECTION, SITE NOT SPECIFIED SNOMED Code(s): 36210259 Plan: 1-we will repeat UA and culture 2-check a CRP level 3-meropenem 1 g every 12 hour while waiting for repeat culture to finalize 4-dry protective dressing to right foot wound and keep the area of the pressure We will follow on clinical condition and cultures to further adjust medication if needed Thank you for this consultation we will follow the patient along with you Time with Patient: Greater than 30
[2019-10-07] MEDS: MEROPENEM 1 GM in SODIUM CHLORIDE 0.9% 100 ML IVPB SCH ×2 (02:57→16:17)
[2019-10-07 07:04] LABS: Glucose,Whole Blood 65 mg/dL (75-99)
[2019-10-07 07:24] LABS: Glucose,Whole Blood 107 mg/dL (75-99)
[2019-10-07 07:25] LABS: Basophils % (A) 1 %; Eosinophils # (A) 0.4 k/uL (0-0.7); Eosinophils % (A) 5 %; HCT 26.9 % (34.0-46.0); HGB 8.6 gm/dL (11.4-16.0); Lymphocytes # (A) 1.5 k/uL (1.0-4.8); Lymphocytes % (A) 17 %; MCHC 32.2 g/dL (31.0-37.0); MCV 90.2 fL (80.0-100.0); Mean Platelet Volume 9.3; Monocytes # (A) 0.7 k/uL (0-1.0); Monocytes % (A) 8 %; Neutrophils # (A) 5.5 k/uL (1.3-7.7); Neutrophils % (A) 67 %; Platelet Count 186 k/uL (150-450); RBC 2.98 m/uL (3.80-5.40); RDW 15.8 % (11.5-15.5); WBC 8.3 k/uL (3.8-10.6)
[2019-10-07] MEDS: INSULIN ASPART (NovoLOG) 100 UNIT/ML VIAL SQ SCH ×4 (07:26→22:22)
[2019-10-07 07:46] LABS: C Reactive Protein 54.3 mg/L (<10.0); Calcium 7.7 mg/dL (8.4-10.2); Potassium 3.4 mmol/L (3.5-5.1)
[2019-10-07] MEDS: NYSTATIN 100,000 UNIT/ML SUSP 500,000 UNIT/5 ML CUP PO SCH ×4 (08:20→22:22)
[2019-10-07] MEDS: POTASSIUM CHLORIDE ER 20 MEQ TAB.ER PO SCH ×2 (08:20→09:47)
[2019-10-07] MEDS: CITALOPRAM HYDROBROMIDE 20 MG TAB PO SCH (08:21)
[2019-10-07] MEDS: GABAPENTIN 100 MG CAP PO SCH ×3 (08:21→22:21)
[2019-10-07] MEDS: ATENOLOL 50 MG TAB PO SCH (08:25)
[2019-10-07 08:52] LABS: Amorphous Sediment,Urine Few /hpf; Appearance,Urine Cloudy (Clear); Bacteria,Urine Moderate /hpf; Bilirubin,Urine Negative (Negative); Blood,Urine Moderate (Negative); Color,Urine Light Yellow; Glucose,Urine (UA) Negative (Negative); Ketones,Urine Negative (Negative); Leukocyte Esterase,Urine Large (Negative); Mucus,Urine Rare /hpf; Nitrite,Urine Negative (Negative); Protein,Urine Trace (Negative); RBC,Urine 7 /hpf (0-5); Specific Gravity,Urine 1.012 (1.001-1.035); Squamous Epithelial Cell,Urine 4 /hpf (0-4); Urobilinogen,Urine <2.0 mg/dL (<2.0); WBC,Urine 13 /hpf (0-5)
[2019-10-07] MEDS: PANTOPRAZOLE 40 MG/10 ML VIAL IV SCH (09:47)
[2019-10-07 11:33] LABS: Glucose,Whole Blood 189 mg/dL (75-99)
[2019-10-07] MEDS ORDERED: POTASSIUM CHLORIDE ER 20 MEQ TAB.ER PO SCH (12:00)
--- NOTE | 2019-10-07 13:36 | P.PN ---
Subjective Progress Note Date: 10/07/19 Principal diagnosis: Sepsis secondary to urinary tract infection, GI bleed The patient is seen today 10/05/2019 in follow-up on the regular medical floor. She is awake and alert in no acute distress. She is status post 4 units of packed red blood cells this admission. She did undergo upper endoscopy that revealed mild antral gastritis, duodenitis and mild esophagitis. Colonoscopy canceled due to poor prep. No shortness of breath, cough or congestion. Maintaining O2 saturations in the 90s on room air. She's afebrile. Urine culture was positive for Klebsiella pneumoniae a. Blood cultures reveal no growth. Sodium 142. Potassium 3.1. Creatinine 3.95. She is continued on meropenem. Continued on IV Protonix. The patient is seen today 10/06/2019 in follow-up on the regular medical floor. She remains awake and alert in no acute distress. Urine culture was positive for Klebsiella pneumoniae. Blood cultures reveal no growth. White count 9.4. Hemoglobin 9.4. Sodium 139. Potassium 3.0. Creatinine 3.44. She is continued on 0.9 normal saline at 75 ML's per hour. Antibiotics in the form of meropenem. She did undergo colonoscopy this morning. No active bleeding old blood or pathology to explain anemia. Normal-appearing colon from rectum to cecum. Moderate sigmoid diverticulosis. The patient is seen today 10/07/2019 in follow-up on the regular medical floor. Awake and alert in no acute distress. Continues to maintain good O2 saturations in the 90s on room air. She's been afebrile. Urine culture positive for Klebsiella pneumoniae. Blood culture revealed no growth. White count 8.3. Hemoglobin 8.6. Sodium 137. Potassium 3.4. Creatinine 3.25. Urinalysis today reveals moderate blood, large leukocyte, high WBCs and moderate bacteria. She remains on meropenem. ID is on the case. Objective - Vital Signs Vital signs: Vital Signs Temp 98.7 F 10/07/19 07:00 Pulse 60 10/07/19 08:24 Resp 16 10/07/19 07:00 BP 118/60 10/07/19 07:00 Pulse Ox 95 10/07/19 07:00 Intake & Output 10/06/19 10/07/19 10/07/19 18:59 06:59 18:59 Intake Total 1100 100 Output Total 750 1200 Balance 350 -1100 Weight 71.6 kg Intake: IV 1100 Sodium Chloride 0.9% 1, 600 000 ml @ 75 mls/hr IV . [id number] [facility] Rx#:[id number] Oral 100 Output: Urine 750 1200 Uretheral (Doran) 600 Other: Voiding Method Indwelling Catheter Indwelling Catheter Indwelling Catheter # Voids 1 # Bowel Movements 1 - Exam GENERAL EXAM: Alert, pleasant 58-year-old female patient, on room air, comfortable in no apparent distress. HEAD: Normocephalic. EYES: Normal reaction of pupils, equal size. NOSE: Clear with pink turbinates. THROAT: No erythema or exudates. NECK: No masses, no JVD. CHEST: No chest wall deformity. LUNGS: Equal air entry with few scattered crackles CVS: S1 and S2 normal with no audible murmur, regular rhythm. ABDOMEN: No hepatosplenomegaly, normal bowel sounds, no guarding or rigidity. SPINE: No scoliosis or deformity SKIN: No rashes CENTRAL NERVOUS SYSTEM: No focal deficits, tone is normal in all 4 extremities. EXTREMITIES: Left knvhc-wya-ewam amputation. There is no peripheral edema. No clubbing, no cyanosis. Peripheral pulses are intact. - Labs CBC & Chem 7: 10/07/19 07:00 10/07/19 10:51 Labs: Abnormal Lab Results - Last 24 Hours (Table) 10/06/19 10/06/19 10/06/19 Range/Units 15:52 16:51 20:27 RBC (3.80-5.40) m/uL Hgb (11.4-16.0) gm/dL Hct (34.0-46.0) % RDW (11.5-15.5) % Potassium 3.3 L (3.5-5.1) mmol/L Chloride (98-107) mmol/L BUN (7-17) mg/dL Creatinine (0.52-1.04) mg/dL Glucose (74-99) mg/dL POC Glucose (mg/dL) 167 H 184 H (75-99) mg/dL Calcium (8.4-10.2) mg/dL C-Reactive Protein (<10.0) mg/L Urine Appearance (Clear) Urine Protein (Negative) Urine Blood (Negative) Ur Leukocyte Esterase (Negative) Urine RBC (0-5) /hpf Urine WBC (0-5) /hpf Amorphous Sediment (None) /hpf Urine Bacteria (None) /hpf Urine Mucus (None) /hpf 10/07/19 10/07/19 10/07/19 Range/Units 06:00 07:00 07:00 RBC 2.98 L (3.80-5.40) m/uL Hgb 8.6 L (11.4-16.0) gm/dL Hct 26.9 L (34.0-46.0) % RDW 15.8 H (11.5-15.5) % Potassium 3.4 L (3.5-5.1) mmol/L Chloride 108 H (98-107) mmol/L BUN 85 H (7-17) mg/dL Creatinine 3.25 H (0.52-1.04) mg/dL Glucose 59 L (74-99) mg/dL POC Glucose (mg/dL) (75-99) mg/dL Calcium 7.7 L (8.4-10.2) mg/dL C-Reactive Protein 54.3 H (<10.0) mg/L Urine Appearance Cloudy H (Clear) Urine Protein Trace H (Negative) Urine Blood Moderate H (Negative) Ur Leukocyte Esterase Large H (Negative) Urine RBC 7 H (0-5) /hpf Urine WBC 13 H (0-5) /hpf Amorphous Sediment Few H (None) /hpf Urine Bacteria Moderate H (None) /hpf Urine Mucus Rare H (None) /hpf 10/07/19 10/07/19 10/07/19 Range/Units 07:03 07:23 11:31 RBC (3.80-5.40) m/uL Hgb (11.4-16.0) gm/dL Hct (34.0-46.0) % RDW (11.5-15.5) % Potassium (3.5-5.1) mmol/L Chloride (98-107) mmol/L BUN (7-17) mg/dL Creatinine (0.52-1.04) mg/dL Glucose (74-99) mg/dL POC Glucose (mg/dL) 65 L 107 H 189 H (75-99) mg/dL Calcium (8.4-10.2) mg/dL C-Reactive Protein (<10.0) mg/L Urine Appearance (Clear) Urine Protein (Negative) Urine Blood (Negative) Ur Leukocyte Esterase (Negative) Urine RBC (0-5) /hpf Urine WBC (0-5) /hpf Amorphous Sediment (None) /hpf Urine Bacteria (None) /hpf Urine Mucus (None) /hpf Microbiology - Last 24 Hours (Table) 10/01/19 18:31 Blood Culture - Preliminary Blood No Growth after 120 hours Assessment and Plan Assessment: 1 Sepsis secondary to Klebsiella pneumoniae urinary tract infection, today's urinalysis still with bacteria and increased WBCs. Currently on meropenem. ID is on the case. 2 Acute blood loss anemia status post 4 units of packed red blood cells this admission. EGD performed today revealed evidence of mild esophagitis, gastritis, duodenitis. Colonoscopy revealed no evidence of active bleeding or old blood to explain anemia. Normal-appearing colon from rectum to cecum. Moderate sigmoid diverticulosis. 3 Acute kidney injury with hyperkalemia and anion gap metabolic acidosis, improved. Current creatinine 3.25. Potassium 3.8. 4 History of old left cerebellar infarct 5 Diabetes mellitus 6 Hyperlipidemia 7 Benign essential hypertension 8 Degenerative joint disease 9 Peripheral artery disease 10 Left afghj-zrg-budy amputation 11 Chronic right heel ulcer 12 Previous history of chronic tobacco dependence Plan: The patient was seen and evaluated by Dr. Nori Vincent from the pulmonary standpoint Remains on meropenem We'll continue to follow I, the cosigning physician, performed a history & physical examination of the patient. Lungs sounds with few scattered crackles. Maintaining good O2 saturations in the 90s on room air. I discussed the assessment and plan of care with my nurse practitioner, Yulissa Bradley. I attest to the above note as dictated by her.
--- NOTE | 2019-10-07 16:02 | PN ---
PROGRESS NOTE Patient is seen for followup for acute kidney injury. Her renal function has improved since admission with creatinine decreasing significantly from 7.46 on initial admission to 3.25 now. The patient had a colonoscopy yesterday by Dr. Randolph and no active bleeding was noted. Moderate sigmoid diverticulosis was seen. This morning patient is comfortable. She denies any complaints. She is eating. EXAMINATION: Blood pressure is 118/60, heart rate 55 per minute, she is afebrile. Examination of the heart S1, S2. Examination of the lungs, decreased breath sounds at bases. Abdomen is soft, nontender. Examination of lower extremities shows no significant edema. [employer] exam grossly intact. LAB: Show sodium 137 on October 06, potassium 3.4, chloride 108, serum creatinine 3.25. ASSESSMENT: 1. Acute kidney injury, acute tubular necrosis, associated with volume depletion, currently improving. 2. Acute blood loss anemia status post packed RBCs, status post DDAVP on initial admission. Colonoscopy did not show any active bleeding and EGD showed mild antral gastritis, duodenitis and esophagitis. 3. Urinary tract infection. Urine culture positive for Klebsiella, maintained on antibiotics. 4. Moderate pulmonary hypertension. 5. Metabolic acidosis associated with renal failure as well as use of metformin, currently improved. 6. Hypokalemia associated with decreased intake and hypomagnesemia, now improved. PLAN: May continue with the IV fluids and continue to encourage increased oral intake. Repeat labs in a.m. Avoid nephrotoxic agents. MMODL / IJN: [id number] /
[2019-10-07 16:52] LABS: Glucose,Whole Blood 134 mg/dL (75-99)
--- NOTE | 2019-10-07 16:56 | PN ---
PROGRESS NOTE DATE OF SERVICE: 10/07/2019 I am covering for Dr. Armijo. This 58-year-old woman was admitted with acute UTI also had significant renal failure. Patient also had significant foot ulceration. No chest pain. No palpitations. No fever. PHYSICAL EXAMINATION: Alert and oriented x3. Pulse is 53, blood pressure 100/54, respiration 17, temp 99.1, pulse ox 98% on room air. HEENT: Conjunctivae normal. NECK: No JVD. CARDIOVASCULAR: S1, S2 muffled. RESPIRATION: Breath sounds diminished in the bases. No rhonchi. No crackles. ABDOMEN is soft, nontender. LEGS diabetic ulcer on the right foot present. NERVOUS SYSTEM: No focal deficits. LABS: Hemoglobin 8.6, potassium 3.4. UA noted. Most recent urine cultures Klebsiella. ASSESSMENT: 1. Acute urinary tract infection with ESBL Klebsiella with severe sepsis, hypotension, shock, septic shock, present on admission. 2. Acute renal failure with possible acute tubular necrosis with prerenal factors, present on admission. 3. Possible chronic kidney stage III baseline. 4. Significant right foot ulceration as well as necrotic changes possibly pressure related. 5. Grade 2-3. 6. Possible acute rhabdomyolysis present on admission. 7. Severe hyperkalemia secondary to renal failure. 8. Severe anemia normocytic, rule out gastrointestinal bleed. 9. Increased WBC secondary to sepsis. 10.Change in mental status, acute metabolic encephalopathy. 11.Diabetes mellitus type 2. 12.Hypertension. 13.Hyperlipidemia. 14.History of degenerative joint disease. 15.History of chronic gout. 16.Carpal tunnel syndrome. 17.History of transient ischemic attack. 18.History of hysterectomy. 19.History of depression. 20.History of anxiety. 21.FULL CODE. RECOMMENDATIONS AND DISCUSSION: This 58-year-old woman who presented with multiple complex medical issues, we will monitor the patient closely, continue the current medical management and symptomatic treatment. Otherwise, at this time, vascular Surgery has been consulted. Otherwise, we will continue to monitor. Continue the antibiotics. Dr. Armijo will follow tomorrow. MMODL / IJN: [id number] /
[2019-10-07] MEDS: SODIUM CHLORIDE 0.9% 1,000 ML IV SCH (17:32)
[2019-10-07] MEDS: MORPHINE SULFATE 4 MG/ML SYRINGE IV PRN (17:33)
[2019-10-07 20:50] LABS: Glucose,Whole Blood 149 mg/dL (75-99)
[2019-10-07] MEDS: INSULIN DETEMIR (LEVEMIR) 100 UNIT/ML SYR SQ SCH (22:23)
--- NOTE | 2019-10-08 02:02 | PN ---
PROGRESS NOTE DATE OF SERVICE: 10/07/2019. REASON FOR FOLLOWUP: 1. CRE urinary tract infection. 2. Right foot wound. INTERVAL HISTORY: The patient is currently afebrile. The patient is breathing comfortably. Denies having any chest pain or cough. No abdominal pain or diarrhea. PHYSICAL EXAMINATION: Blood pressure 119/73 with a pulse of 62, temperature 98.9. She is 98% on room air. General description is a middle-aged female lying in bed in no distress. RESPIRATORY SYSTEM: Unlabored breathing, clear to auscultation anteriorly. HEART: S1, S2. Regular rate and rhythm. ABDOMEN: Soft, no tenderness. Right foot is currently dressed up. No obvious drainage on the dressing. LABS: Hemoglobin 8.6, white count 8.3, BUN of 85, creatinine 3.25. Repeat urine is positive as well. DIAGNOSTIC IMPRESSION AND PLAN: 1. Patient with a positive urine culture with Klebsiella as well as CRE with a question of cystitis versus Doran colonization. Repeat UA still positive. Currently on meropenem to continue and monitor clinical course closely. 2. Right heel wound. Local wound care with Santyl followed by moist dressing with dry protective dressing to the lateral border blister and continue supportive care. MMODL / IJN: [id number] /
[2019-10-08] MEDS: MEROPENEM 1 GM in SODIUM CHLORIDE 0.9% 100 ML IVPB SCH ×2 (03:38→14:42)
[2019-10-08] MEDS: SODIUM CHLORIDE 0.9% 1,000 ML IV SCH ×3 (05:17→21:43)
[2019-10-08 06:56] LABS: Glucose,Whole Blood 110 mg/dL (75-99)
[2019-10-08] MEDS: INSULIN ASPART (NovoLOG) 100 UNIT/ML VIAL SQ SCH ×4 (07:05→21:40)
[2019-10-08 07:45] LABS: Basophils % (A) 0 %; Eosinophils # (A) 0.4 k/uL (0-0.7); Eosinophils % (A) 4 %; HCT 27.4 % (34.0-46.0); HGB 8.9 gm/dL (11.4-16.0); Lymphocytes # (A) 1.8 k/uL (1.0-4.8); Lymphocytes % (A) 20 %; MCH 29.7 pg (25.0-35.0); MCHC 32.6 g/dL (31.0-37.0); MCV 91.1 fL (80.0-100.0); Mean Platelet Volume 9.4; Monocytes # (A) 0.5 k/uL (0-1.0); Monocytes % (A) 6 %; Neutrophils % (A) 68 %; Platelet Count 195 k/uL (150-450); RBC 3.01 m/uL (3.80-5.40); WBC 8.9 k/uL (3.8-10.6)
[2019-10-08] MEDS: PANTOPRAZOLE 40 MG/10 ML VIAL IV SCH (08:23)
[2019-10-08] MEDS: CITALOPRAM HYDROBROMIDE 20 MG TAB PO SCH (08:23)
[2019-10-08] MEDS: NYSTATIN 100,000 UNIT/ML SUSP 500,000 UNIT/5 ML CUP PO SCH ×4 (08:23→21:40)
[2019-10-08] MEDS: ATENOLOL 50 MG TAB PO SCH (08:23)
[2019-10-08] MEDS: GABAPENTIN 100 MG CAP PO SCH ×4 (08:23→21:40)
[2019-10-08] MEDS: MORPHINE SULFATE 4 MG/ML SYRINGE IV PRN (08:28)
[2019-10-08 08:40] LABS: Calcium 7.8 mg/dL (8.4-10.2); Potassium 3.8 mmol/L (3.5-5.1)
--- NOTE | 2019-10-08 12:17 | P.PN ---
Subjective Progress Note Date: 10/08/19 This is a 58-year-old female admitted with multiple medical issues, scheduled for EGD and colonoscopy today. Hemoglobin 3.1, receiving supplements as per nephrology. Creatinine trending down, 3.95. Urine cultures reporting Klebsiella/ESBL. Preliminary blood cultures reporting no growth. Afebrile currently, T-max 99.1. Maintained on Merrem. 10/08/2019 minimal ambulation. Maintained on IV fluids. EGD on 10/04 revealed mild antral gastritis, duodenitis and mild esophagitis. Colonoscopy not perfo rmed secondary to poor prep. Rescheduled, performed over the weekend reported no active bleeding, normal-appearing colon from rectum to cecum, impaired complete visualization of the mucosa secondary to poor prep, moderate sigmoid diverticulosis, mild internal hemorrhoids, biopsies obtained. Hemoglobin 8.9, creatinine trending down to 2.81. Potassium 3.8. Maintained on IV antibiotics of Merrem and local wound care as per infectious disease. Afebrile. Normal WBC. Objective - Vital Signs Vital signs: Vital Signs Temp 98.2 F 10/08/19 07:00 Pulse 60 10/08/19 07:00 Resp 16 10/08/19 07:00 BP 144/72 10/08/19 07:00 Pulse Ox 97 10/08/19 07:00 Intake & Output 10/07/19 10/08/19 10/08/19 18:59 06:59 18:59 Intake Total 600 300 Output Total 720 1000 Balance -120 -700 Weight 71.6 kg Intake: IV 600 Sodium Chloride 0.9% 1, 600 000 ml @ 75 mls/hr IV . [id number] [facility] Rx#:[id number] Oral 300 Output: Urine 720 1000 Uretheral (Doran) 720 Other: Voiding Method Indwelling Catheter Indwelling Catheter Indwelling Catheter - Exam GENERAL: This is a 58-year-old in no apparent distress at the time of examination. Pleasant and cooperative. HEENT: Head is atraumatic, normocephalic. Pupils are equal, round, and reactive to light. Sclerae anicteric. Conjunctivae are clear. Mucus membranes of the mouth are moist. Neck is supple. RESPIRATORY: Clear to auscultation. No rhonchi, occasional fine crackles, no wheezes. No use of accessory muscles. Patient maintaining oxygen saturation gr eater than 92%. No chest wall tenderness is noted on palpation or with deep breathing. CARDIOVASCULAR: Regular rate and rhythm. S1 and S2 noted. No systolic or diastolic murmur auscultated. No JVD noted. No S3 or S4 noted. GASTROINTESTINAL: No distention noted. Abdomen soft and round. Normal active bowel sounds auscultated x 4 quadrants. No pain or tenderness noted upon palpation. INTEGUMENTARY: Multiple contusions to her right knee. Dressing placed on her right foot. Left hiiql-vuy-hegz amputation stump intact with known multiple bruising on the left knee.. EXTREMITIES: Left pspnu-afe-qjls amputation. Ulcerations on right foot currently under wound care by Dr. Hunt at [facility]. New marie sized blister right inner medial foot,dry NEUROLOGIC: Cranial nerves II-XII intact. PSYCHIATRIC: Awake, alert, and oriented X 2. Appropriate affect. Microbiology 10/01/19 18:31 Blood Blood Culture - Final No Growth after 144 hours 10/07/19 06:00 Urine,Voided Urine Culture - Preliminary 10/01/19 17:07 Urine,Catheterized Urine Culture - Preliminary Klebsiella pneumoniae - Labs CBC & Chem 7: 10/08/19 07:09 10/08/19 07:09 Labs: Abnormal Lab Results - Last 24 Hours (Table) 10/07/19 10/07/19 10/08/19 Range/Units 16:51 20:30 06:55 RBC (3.80-5.40) m/uL Hgb (11.4-16.0) gm/dL Hct (34.0-46.0) % RDW (11.5-15.5) % Chloride (98-107) mmol/L Carbon Dioxide (22-30) mmol/L BUN (7-17) mg/dL Creatinine (0.52-1.04) mg/dL Glucose (74-99) mg/dL POC Glucose (mg/dL) 134 H 149 H 110 H (75-99) mg/dL Calcium (8.4-10.2) mg/dL 10/08/19 10/08/19 Range/Units 07:09 07:09 RBC 3.01 L (3.80-5.40) m/uL Hgb 8.9 L (11.4-16.0) gm/dL Hct 27.4 L (34.0-46.0) % RDW 16.0 H (11.5-15.5) % Chloride 110 H (98-107) mmol/L Carbon Dioxide 19 L (22-30) mmol/L BUN 78 H (7-17) mg/dL Creatinine 2.81 H (0.52-1.04) mg/dL Glucose 73 L (74-99) mg/dL POC Glucose (mg/dL) (75-99) mg/dL Calcium 7.8 L (8.4-10.2) mg/dL Microbiology - Last 24 Hours (Table) 10/01/19 18:31 Blood Culture - Final Blood No Growth after 144 hours 10/07/19 06:00 Urine Culture - Preliminary Urine,Voided Assessment and Plan Assessment: (1) Sepsis secondary to acute UTI with Klebsiella ESBL Current Visit: Yes Status: Acute Code(s): A41.9 - SEPSIS, UNSPECIFIED ORGANISM SNOMED Code(s): 52161661 Current Visit: Yes Status: Acute Code(s): N39.0 - URINARY TRACT INFECTION, SITE NOT SPECIFIED SNOMED Code(s): 53624012 (2) Acute kidney injury superimposed on chronic kidney disease stage III, possibly acute tubular necrosis with prerenal factors, present on admission. Current Visit: Yes Status: Acute Code(s): N17.9 - ACUTE KIDNEY FAILURE, UNSPECIFIED; N18.9 - CHRONIC KIDNEY DISEASE, UNSPECIFIED SNOMED Code(s): 67974972 (3) GI bleed with Anemia, acute blood loss, status post 4 units packed RBCs transfused.Status post EGD reporting mild antral gastritis, duodenitis and esophagitis. Colonoscopy reporting no active bleeding, black or pathology to explain anemia. Impaired visualization, mucosa secondary to poor prep. Moderate sigmoid diverticulosis. Mild internal hemorrhoids. Biopsies obtained Current Visit: Yes Status: Acute Code(s): D64.9 - ANEMIA, UNSPECIFIED SNOMED Code(s): 803537121 Current Visit: Yes Status: Acute Code(s): K92.2 - GASTROINTESTINAL HEMORRHAGE, UNSPECIFIED SNOMED Code(s): 82055131 (4) Dehydration Current Visit: Yes Status: Acute Code(s): E86.0 - DEHYDRATION SNOMED Code(s): 00331180 (6) Hyperkalemia Current Visit: Yes Status: Acute Code(s): E87.5 - HYPERKALEMIA SNOMED Code(s): 02482282 (7) Diabetic ulcer with necrotic changes, possibly pressure related of right foot associated with diabetes mellitus due to underlying condition Current Visit: Yes Status: Acute Code(s): E08.621 - DIABETES MELLITUS DUE TO UNDERLYING CONDITION W FOOT ULCER; L97.519 - NON-PRS CHRONIC ULCER OTH PRT RIGHT FOOT W UNSP SEVERITY SNOMED Code(s): 076927741 (8) hypokalemia (9) Cerebrovascular accident Current Visit: No Status: Acute Code(s): I63.9 - CEREBRAL INFARCTION, UNSPECIFIED SNOMED Code(s): 642661768 (10) Diabetes mellitus type 2, uncontrolled, with complications Current Visit: No Status: Acute Code(s): E11.8 - TYPE 2 DIABETES MELLITUS WITH UNSPECIFIED COMPLICATIONS; E11.65 - TYPE 2 DIABETES MELLITUS WITH HYPERG LYCEMIA SNOMED Code(s): 02790608 (11) Peripheral artery disease Current Visit: No Status: Acute Code(s): I73.9 - PERIPHERAL VASCULAR DISEASE, UNSPECIFIED SNOMED Code(s): 901552892 (12) Smoker Current Visit: No Status: Acute Code(s): F17.200 - NICOTINE DEPENDENCE, UNSPECIFIED, UNCOMPLICATED SNOMED Code(s): 31656772 (13) Dyslipidemia Current Visit: No Status: Chronic Code(s): E78.5 - HYPERLIPIDEMIA, UNSPECIFIED SNOMED Code(s): 272936335 (14) Hypertension Current Visit: No Status: Chronic Code(s): I10 - ESSENTIAL (PRIMARY) HYPERTENSION SNOMED Code(s): 81276647 Plan: Continue on current medication regime ,monitoring and symptomatic treatment. Maintain gentle IV fluid hydration. Continue on PPI. Electrolyte supplements as per nephrology. Repeat UA/culture in progress. Antibiotics/local wound care as per Infectious disease.Close monitoring of CBC, renal function with repeat labs ordered for a.m. PT/OT. Discharge planning in progress for subacute rehab. The impression and plan of care has been dictated as directed. : I performed a history and examination of this patient, discussed the same with the dictator. I agree with the dictator's note ,documented as a scribe. Any additional findings or plans will be noted.
[2019-10-08 12:37] LABS: Glucose,Whole Blood 195 mg/dL (75-99)
--- NOTE | 2019-10-08 13:09 | P.PN ---
Subjective Progress Note Date: 10/08/19 Principal diagnosis: Sepsis secondary to urinary tract infection, GI bleeding The patient is seen today 10/05/2019 in follow-up on the regular medical floor. She is awake and alert in no acute distress. She is status post 4 units of packed red blood cells this admission. She did undergo upper endoscopy that revealed mild antral gastritis, duodenitis and mild esophagitis. Colonoscopy canceled due to poor prep. No shortness of breath, cough or congestion. Maintaining O2 saturations in the 90s on room air. She's afebrile. Urine culture was positive for Klebsiella pneumoniae a. Blood cultures reveal no growth. Sodium 142. Potassium 3.1. Creatinine 3.95. She is continued on meropenem. Continued on IV Protonix. The patient is seen today 10/06/2019 in follow-up on the regular medical floor. She remains awake and alert in no acute distress. Urine culture was positive for Klebsiella pneumoniae. Blood cultures reveal no growth. White count 9.4. Hemoglobin 9.4. Sodium 139. Potassium 3.0. Creatinine 3.44. She is continued on 0.9 normal saline at 75 ML's per hour. Antibiotics in the form of meropenem. She did undergo colonoscopy this morning. No active bleeding old blood or pathology to explain anemia. Normal-appearing colon from rectum to cecum. Moderate sigmoid diverticulosis. The patient is seen today 10/07/2019 in follow-up on the regular medical floor. Awake and alert in no acute distress. Continues to maintain good O2 saturations in the 90s on room air. She's been afebrile. Urine culture positive for Klebsiella pneumoniae. Blood culture revealed no growth. White count 8.3. Hemoglobin 8.6. Sodium 137. Potassium 3.4. Creatinine 3.25. Urinalysis today reveals moderate blood, large leukocyte, high WBCs and moderate bacteria. She remains on meropenem. ID is on the case. On 10/08/2019 patient seen in follow-up on a general medical surgical floor, she is awake and alert, in no acute distress, denies any difficulty breathing, room air pulse ox is 97%, no fever or chills, hemodynamically stable, no acute events overnight. No complaints, she has a Doran catheter in, producing clear yellow urine, she is in -820 ML fluid balance over the last 24 hours. Remains on meropenem for ESBL producing Klebsiella pneumonia urinary tract infection, repeat urine culture was sent, results are pending at this time. No altered mentation, hemodynamically patient is stable, his renal function is improving, B1 is 70, creatinine is 2.81 on today's labs. Today's hemoglobin is 8.9 without evidence of bleeding Objective - Vital Signs Vital signs: Vital Signs Temp 98.2 F 10/08/19 07:00 Pulse 60 10/08/19 07:00 Resp 16 10/08/19 07:00 BP 144/72 10/08/19 07:00 Pulse Ox 97 10/08/19 07:00 Intake & Output 10/07/19 10/08/19 10/08/19 18:59 06:59 18:59 Intake Total 600 300 Output Total 720 1000 Balance -120 -700 Weight 71.6 kg Intake: IV 600 Sodium Chloride 0.9% 1, 600 000 ml @ 75 mls/hr IV . [id number] [facility] Rx#:[id number] Oral 300 Output: Urine 720 1000 Uretheral (Doran) 720 Other: Voiding Method Indwelling Catheter Indwelling Catheter Indwelling Catheter - Exam GENERAL EXAM: Alert, very pleasant, 58-year-old white female room air with a pulse ox of 97% comfortable in no apparent distress. HEAD: Normocephalic/atraumatic. EYES: Normal reaction of pupils, equal size. Conjunctiva pink, sclera white. NOSE: Clear with pink turbinates. THROAT: No erythema or exudates. NECK: No masses, no JVD, no thyroid enlargement, no adenopathy. CHEST: No chest wall deformity. Symmetrical expansion. LUNGS: Equal air entry with no crackles, wheeze, rhonchi or dullness. CVS: Regular rate and rhythm, normal S1 and S2, no gallops, no murmurs, no rubs ABDOMEN: Soft, nontender. No hepatosplenomegaly, normal bowel sounds, no gu arding or rigidity. EXTREMITIES: No clubbing, no edema, no cyanosis, 2+ pulses and upper and lower e xtremities. MUSCULOSKELETAL: Muscle strength and tone normal. SPINE: No scoliosis or deformity SKIN: No rashes CENTRAL NERVOUS SYSTEM: Alert and oriented -3. No focal deficits, tone is normal in all 4 extremities. PSYCHIATRIC: Alert and oriented -3. Appropriate affect. Intact judgment and insight. - Labs CBC & Chem 7: 10/08/19 07:09 10/08/19 07:09 Labs: Abnormal Lab Results - Last 24 Hours (Table) 10/07/19 10/07/19 10/08/19 Range/Units 16:51 20:30 06:55 RBC (3.80-5.40) m/uL Hgb (11.4-16.0) gm/dL Hct (34.0-46.0) % RDW (11.5-15.5) % Chloride (98-107) mmol/L Carbon Dioxide (22-30) mmol/L BUN (7-17) mg/dL Creatinine (0.52-1.04) mg/dL Glucose (74-99) mg/dL POC Glucose (mg/dL) 134 H 149 H 110 H (75-99) mg/dL Calcium (8.4-10.2) mg/dL 10/08/19 10/08/19 10/08/19 Range/Units 07:09 07:09 11:44 RBC 3.01 L (3.80-5.40) m/uL Hgb 8.9 L (11.4-16.0) gm/dL Hct 27.4 L (34.0-46.0) % RDW 16.0 H (11.5-15.5) % Chloride 110 H (98-107) mmol/L Carbon Dioxide 19 L (22-30) mmol/L BUN 78 H (7-17) mg/dL Creatinine 2.81 H (0.52-1.04) mg/dL Glucose 73 L (74-99) mg/dL POC Glucose (mg/dL) 195 H (75-99) mg/dL Calcium 7.8 L (8.4-10.2) mg/dL Microbiology - Last 24 Hours (Table) 10/01/19 18:31 Blood Culture - Final Blood No Growth after 144 hours 10/07/19 06:00 Urine Culture - Preliminary Urine,Voided Assessment and Plan Plan: Assessment: 1 Sepsis secondary to ESBL producing Klebsiella pneumoniae urinary tract infection, currently on meropenem ID is on the case. 2 Acute blood loss anemia status post 4 units of packed red blood cells this admission. EGD performed today revealed evidence of mild esophagitis, gastritis, duodenitis. Colonoscopy revealed no evidence of active bleeding or old blood to explain anemia. Normal-appearing colon from rectum to cecum. Moderate sigmoid diverticulosis. 3 Acute kidney injury with hyperkalemia and anion gap metabolic acidosis, improved. Current creatinine 3.25. Potassium 3.8. 4 History of old left cerebellar infarct 5 Diabetes mellitus 6 Hyperlipidemia 7 Benign essential hypertension 8 Degenerative joint disease 9 Peripheral artery disease 10 Left [id number] amputation 11 Chronic right heel ulcer 12 Previous history of chronic tobacco dependence Plan: Continue current antibiotics, repeat urine culture is pending, patient has been afebrile, feeling better, no altered mentation, no recurrence of bleeding, today's hemoglobin is 8.9, hemodynamically patient is stable, and she is on PPI therapy, continues on IV hydration, and her renal profile is improving. No difficulty breathing, no specific complaints, we'll continue to follow I performed a history & physical examination of the patient and discussed their management with my nurse practitioner, Nanette Andujar. I reviewed the nurse practitioner's note and agree with the documented findings and plan of care. Lung sounds are positive for diminished breath sounds. The findings and the impression was discussed with the patient. I attest to the documentation by the nurse practitioner. Time with Patient: Less than 30
[2019-10-08] MEDS ORDERED: Potassium Replacement Protocol 1 EACH MISC MISCELLANE PRN (13:38)
[2019-10-08] MEDS ORDERED: POTASSIUM CHLORIDE ER 20 MEQ TAB.ER PO SCH (14:00)
--- NOTE | 2019-10-08 16:10 | PN ---
PROGRESS NOTE Patient is seen for followup for acute kidney injury which was mainly prerenal. Renal function continues to improve, with creatinine down to 2.8 now from 7.46 on initial admission. Patient also had a urinary tract infection with Klebsiella pneumoniae. She is maintained on antibiotics. IV fluids are at 75 mL/hour. PHYSICAL EXAMINATION: On examination today, blood pressure was 144/72, heart rate 60 per minute. Patient is afebrile. EXAMINATION OF THE HEART: S1 and S2. EXAMINATION OF LUNGS: Decreased breath sounds at bases. ABDOMEN: Soft, non-tender. Examination of lower extremities shows trace edema. EATING DISORDER SPECIALIST exam is grossly intact. LABS: Labs show sodium of 138, potassium 3.8, chloride 110, BUN 78, serum creatinine 2.81, hemoglobin 8.9 g/dL. ASSESSMENT: 1. Acute kidney injury, mostly prerenal, currently improved significantly. 2. Urinary tract infection secondary to Klebsiella pneumoniae. 3. Sepsis associated with Klebsiella pneumoniae urinary tract infection. 4. Acute blood loss anemia, status post packed RBCs transfusion. No active bleeding noted on colonoscopy or EGD. 5. Metabolic acidosis, currently improved. 6. History of old cerebellar infarct. 7. History of left below-knee amputation. PLAN: Continue to encourage increased oral intake. May continue IV fluids. Repeat labs in a.m. MMODL / IJN: [id number] /
[2019-10-08 16:25] LABS: Glucose,Whole Blood 169 mg/dL (75-99)
[2019-10-08 21:20] LABS: Glucose,Whole Blood 161 mg/dL (75-99)
[2019-10-08] MEDS: INSULIN DETEMIR (LEVEMIR) 100 UNIT/ML SYR SQ SCH (21:40)
--- NOTE | 2019-10-08 23:01 | PN ---
PROGRESS NOTE DATE OF SERVICE: 10/08/2019 REASON FOR FOLLOWUP: 1. ESBL E coli urinary tract infection. 2. Right heel wound. INTERVAL HISTORY: The patient is currently afebrile. The patient is breathing comfortably. She denies having any chest pain or cough. No abdominal pain or diarrhea. PHYSICAL EXAMINATION: Blood pressure 150/73 with a pulse of 63, temperature 98.4. She is 98% on room air. General description is a middle-aged female up in the chair in no distress. RESPIRATORY SYSTEM: Unlabored breathing. Clear to auscultation anteriorly. HEART: S1, S2. Regular rate and rhythm. ABDOMEN: Soft. No tenderness. Right foot is currently dressed up. No obvious drainage on the dressing. LABS: Hemoglobin 8.9, white count 8.9. Creatinine is 2.81. Urine now showing a Gram- negative and group D Enterococcus. DIAGNOSTIC IMPRESSION AND PLAN: 1. Patient with extended-spectrum beta-lactamase Escherichia coli urinary tract infection. Repeat is now showing Enterococcus and Gram-negative with ID and sensitivities pending. Patient is covered with Invanz; to continue while waiting for the repeat culture to finalize. 2. Right heel wound. Continue local wound care with [facility] and keep the right lateral wound area off pressure and continue with supportive care. MMODL / IJN: [id number] /
[2019-10-09] MEDS: MEROPENEM 1 GM in SODIUM CHLORIDE 0.9% 100 ML IVPB SCH ×2 (02:54→15:41)
[2019-10-09 07:08] LABS: Glucose,Whole Blood 75 mg/dL (75-99)
[2019-10-09] MEDS: INSULIN ASPART (NovoLOG) 100 UNIT/ML VIAL SQ SCH ×4 (07:59→21:21)
[2019-10-09] MEDS: CITALOPRAM HYDROBROMIDE 20 MG TAB PO SCH (08:03)
[2019-10-09] MEDS: GABAPENTIN 100 MG CAP PO SCH ×3 (08:03→21:22)
[2019-10-09] MEDS: ATENOLOL 50 MG TAB PO SCH (08:04)
[2019-10-09] MEDS: PANTOPRAZOLE 40 MG/10 ML VIAL IV SCH (08:04)
[2019-10-09] MEDS: NYSTATIN 100,000 UNIT/ML SUSP 500,000 UNIT/5 ML CUP PO SCH ×4 (08:07→21:22)
[2019-10-09 08:12] LABS: Anisocytosis Slight; HCT 26.8 % (34.0-46.0); HGB 8.6 gm/dL (11.4-16.0); MCH 29.2 pg (25.0-35.0); MCHC 32.3 g/dL (31.0-37.0); MCV 90.6 fL (80.0-100.0); Mean Platelet Volume 9.9; Platelet Count 188 k/uL (150-450); RBC 2.96 m/uL (3.80-5.40); RDW 16.1 % (11.5-15.5); WBC 8.7 k/uL (3.8-10.6)
[2019-10-09 08:29] LABS: Calcium 7.7 mg/dL (8.4-10.2); Potassium 3.9 mmol/L (3.5-5.1)
[2019-10-09] MEDS: MORPHINE SULFATE 4 MG/ML SYRINGE IV PRN ×2 (10:42→16:41)
[2019-10-09 11:27] LABS: Glucose,Whole Blood 155 mg/dL (75-99)
--- NOTE | 2019-10-09 11:45 | P.GSCN ---
History of Present Illness History of present illness: 58-year-old white female, patient is well known to me from the past she is been coming to the wound clinic of the right foot heel wound and fourth toe we've been treating with local wound care. Patient was admitted due to the fall at home and also has been diagnosed wit kidney failure On examination neck is supple no bruit appreciated Chest first and second sound normal good entry both lungs Abdomen soft soft nontender vascular examination femorals are 1+ bilateral patient had a left BK amputation done in the past stump is healing and her right foot has a fourth toe chronic wound and mild redness noted and scab formation noted and also patient has a wound on the on the heel which been treating with local wound care Plan is we continue with the local wound care patient has appointment at the wound clinic next week if patient discharged we will follow in the wound clinic at this point no surgical intervention needed thank you very much Past Medical History Past Medical History: CVA/TIA, Diabetes Mellitus, Hyperlipidemia, Hypertension, Osteoarthritis (OA), Vascular Disorder Additional Past Medical History / Comment(s): chronic gout, carpal tunnel, TIA 2017-no residual effects. 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 stent rt leg 02/24 Past Anesthesia/Blood Transfusion Reactions: No Reported Reaction Past Psychological History: Depression Additional Psychological History / Comment(s): . Very anxious about current situation Smoking Status: Former smoker Past Alcohol Use History: None Reported Additional Past Alcohol Use History / Comment(s): started smoking age 17, cutdown to maybe a cigarette q few days, does not remember when she last smoked Past Drug Use History: None Reported - Past Family History Mother Additional Family Medical History / Comment(s): at age 47 from heart defect Father Family Medical History: CVA/TIA, Hyperlipidemia, Hypertension Additional Family Medical History / Comment(s): 2 strokes affected brain stem Medications and Allergies Home Medications Medication Instructions Recorded Confirmed Type Atenolol [Tenormin] 50 mg PO DAILY 04/25/19 10/02/19 History Citalopram Hydrobromide [CeleXA] 40 mg PO DAILY 04/25/19 10/02/19 History Clopidogrel Bisulfate [Plavix] 75 mg PO HS 06/01/19 10/02/19 History Baclofen [Lioresal] 10 mg PO BID PRN tab 10/09/19 Rx Gabapentin [Neurontin] 200 mg PO TID #18 cap 10/09/19 Rx Insulin Glargine,Hum.rec.anlog 20 unit SQ HS #0 10/09/19 10/02/19 Rx [Lantus Solostar] Pantoprazole Sodium [Protonix] 40 mg PO DAILY #30 tablet. 10/09/19 Rx Allergies Allergy/AdvReac Type Severity Reaction Status Date / Time sulfamethoxazole Allergy Itching Verified 10/01/19 14:43 [From Bactrim] trimethoprim [From Bactrim] Allergy Itching Verified 10/01/19 14:43 Surgical - Exam Vital Signs Temp Pulse Resp BP Pulse Ox 97.9 F 89 20 108/49 97 10/01/19 14:38 10/01/19 14:38 10/01/19 14:38 10/01/19 14:38 10/01/19 14:38 Results - Labs 10/09/19 07:32 10/09/19 07:32 Abnormal Lab Results - Last 24 Hours (Table) 10/08/19 10/08/19 10/08/19 Range/Units 11:44 16:21 21:18 RBC (3.80-5.40) m/uL Hgb (11.4-16.0) gm/dL Hct (34.0-46.0) % RDW (11.5-15.5) % Sodium (137-145) mmol/L Chloride (98-107) mmol/L Carbon Dioxide (22-30) mmol/L BUN (7-17) mg/dL Creatinine (0.52-1.04) mg/dL Glucose (74-99) mg/dL POC Glucose (mg/dL) 195 H 169 H 161 H (75-99) mg/dL Calcium (8.4-10.2) mg/dL 10/09/19 10/09/19 10/09/19 Range/Units 07:32 07:32 11:26 RBC 2.96 L (3.80-5.40) m/uL Hgb 8.6 L (11.4-16.0) gm/dL Hct 26.8 L (34.0-46.0) % RDW 16.1 H (11.5-15.5) % Sodium 136 L (137-145) mmol/L Chloride 109 H (98-107) mmol/L Carbon Dioxide 20 L (22-30) mmol/L BUN 84 H (7-17) mg/dL Creatinine 2.36 H (0.52-1.04) mg/dL Glucose 64 L (74-99) mg/dL POC Glucose (mg/dL) 155 H (75-99) mg/dL Calcium 7.7 L (8.4-10.2) mg/dL Microbiology - Last 24 Hours (Table) 10/07/19 06:00 Urine Culture - Preliminary Urine,Voided Gram Neg Bacilli Group D Enterococcus Diabetes panel 10/09/19 Range/Units 07:32 Sodium 136 L (137-145) mmol/L Potassium 3.9 (3.5-5.1) mmol/L Chloride 109 H (98-107) mmol/L Carbon Dioxide 20 L (22-30) mmol/L BUN 84 H (7-17) mg/dL Creatinine 2.36 H (0.52-1.04) mg/dL Glucose 64 L (74-99) mg/dL Calcium 7.7 L (8.4-10.2) mg/dL Calcium panel 10/09/19 Range/Units 07:32 Calcium 7.7 L (8.4-10.2) mg/dL Pituitary panel 10/09/19 Range/Units 07:32 Sodium 136 L (137-145) mmol/L Potassium 3.9 (3.5-5.1) mmol/L Chloride 109 H (98-107) mmol/L Carbon Dioxide 20 L (22-30) mmol/L BUN 84 H (7-17) mg/dL Creatinine 2.36 H (0.52-1.04) mg/dL Glucose 64 L (74-99) mg/dL Calcium 7.7 L (8.4-10.2) mg/dL Adrenal panel 10/09/19 Range/Units 07:32 Sodium 136 L (137-145) mmol/L Potassium 3.9 (3.5-5.1) mmol/L Chloride 109 H (98-107) mmol/L Carbon Dioxide 20 L (22-30) mmol/L BUN 84 H (7-17) mg/dL Creatinine 2.36 H (0.52-1.04) mg/dL Glucose 64 L (74-99) mg/dL Calcium 7.7 L (8.4-10.2) mg/dL
--- NOTE | 2019-10-09 11:46 | P.DS ---
Providers Date of admission: 10/01/19 19:38 Expected date of discharge: 10/09/19 Attending physician: Rene Armijo Consults: 10/01/19 18:46 Consult Physician Stat Consulting Provider: Jason Blackwell Consult Reason/Comments: Renal failure Do you want consulting provider notified?: Yes 10/01/19 18:47 Consult Physician Stat Consulting Provider: Gokul Tesfaye Consult Reason/Comments: ICU mgmt Do you want consulting provider notified?: Yes 10/05/19 17:28 Consult Physician Routine Consulting Provider: Kriss Quintero Consult Reason/Comments: UTI Klebsiella, ESBL Do you want consulting provider notified?: Yes 10/06/19 13:26 Consult Physician Routine Consulting Provider: Juan Hunt Consult Reason/Comments: right foot wound Do you want consulting provider notified?: Yes Primary care physician: Rene Armijo [facility] Course: Final Diagnoses: (1) Sepsis secondary to acute UTI with Klebsiella ESBL Current Visit: Yes Status: Acute Code(s): A41.9 - SEPSIS, UNSPECIFIED ORGANISM SNOMED Code(s): 28644647 Current Visit: Yes Status: Acute Code(s): N39.0 - URINARY TRACT INFECTION, SITE NOT SPECIFIED SNOMED Code(s): 97201236 (2) Acute kidney injury superimposed on chronic kidney disease stage III, possibly acute tubular necrosis with prerenal factors, present on admission, significantly improved. Current Visit: Yes Status: Acute Code(s): N17.9 - ACUTE KIDNEY FAILURE, UNSPECIFIED; N18.9 - CHRONIC KIDNEY DISEASE, UNSPECIFIED SNOMED Code(s): 20794447 (3) GI bleed with Anemia, acute blood loss, status post 4 units packed RBCs transfused.Status post EGD reporting mild antral gastritis, duodenitis and eso phagitis. Colonoscopy reporting no active bleeding, or pathology to explain anemia. Impaired visualization, mucosa secondary to poor prep. Moderate sigmoid diverticulosis. Mild internal hemorrhoids. Biopsies obtained Current Visit: Yes Status: Acute Code(s): D64.9 - ANEMIA, UNSPECIFIED SNOMED Code(s): 431859687 Current Visit: Yes Status: Acute Code(s): K92.2 - GASTROINTESTINAL HEMORRHAGE, UNSPECIFIED SNOMED Code(s): 17187331 (4) Dehydration Current Visit: Yes Status: Acute Code(s): E86.0 - DEHYDRATION SNOMED Code(s): 84580933 (6) Hyperkalemia Current Visit: Yes Status: Acute Code(s): E87.5 - HYPERKALEMIA SNOMED Code(s): 17599078 (7) Diabetic ulcer with necrotic changes, possibly pressure related of right foot associated with diabetes mellitus due to underlying condition Current Visit: Yes Status: Acute Code(s): E08.621 - DIABETES MELLITUS DUE TO UNDERLYING CONDITION W FOOT ULCER; L97.519 - NON-PRS CHRONIC ULCER OTH PRT RIGHT FOOT W UNSP SEVERITY SNOMED Code(s): 774405517 8) hypokalemia (9) Cerebrovascular accident Current Visit: No Status: Acute Code(s): I63.9 - CEREBRAL INFARCTION, UNSPECIFIED SNOMED Code(s): 680582784 (10) Diabetes mellitus type 2, uncontrolled, with complications Current Visit: No Status: Acute Code(s): E11.8 - TYPE 2 DIABETES MELLITUS WITH UNSPECIFIED COMPLICATIONS; E11.65 - TYPE 2 DIABETES MELLITUS WITH HYPERGLYCEMIA SNOMED Code(s): 68710056 (11) Peripheral artery disease Current Visit: No Status: Acute Code(s): I73.9 - PERIPHERAL VASCULAR DISEASE, UNSPECIFIED SNOMED Code(s): 309394823 (12) Smoker Current Visit: No Status: Acute Code(s): F17.200 - NICOTINE DEPENDENCE, UNSPECIFIED, UNCOMPLICATED SNOMED Code(s): 95543531 (13) Dyslipidemia Current Visit: No Status: Chronic Code(s): E78.5 - HYPERLIPIDEMIA, UNSPEC IFIED SNOMED Code(s): 506312993 (14) Hypertension Current Visit: No Status: Chronic Code(s): I10 - ESSENTIAL (PRIMARY) HYPERTENSION SNOMED Code(s): 18588466 (15) Possible acute rhabdomyolysis, present on admission Hospital course:This is a 58-year-old female admitted with multiple medical issues, scheduled for EGD and colonoscopy today. Hemoglobin 3.1, receiving supplements as per nephrology. Creatinine trending down, 3.95. Urine cultures reporting Klebsiella/ESBL. Preliminary blood cultures reporting no growth. Afebrile currently, T-max 99.1. Maintained on Merrem. 10/08/2019 minimal ambulation. Maintained on IV fluids. EGD on 10/04 revealed mild antral gastritis, duodenitis and mild esophagitis. Colonoscopy not performed secondary to poor prep. Rescheduled, performed over the weekend reported no active bleeding, normal-appearing colon from rectum to cecum, impaired complete visualization of the mucosa secondary to poor prep, moderate sigmoid diverticulosis, mild internal hemorrhoids, biopsies obtained. Hemoglobin 8.9, creatinine trending down to 2.81. Potassium 3.8. Maintained on IV antibiotics of Merrem and local wound care as per infectious disease. Afebrile. Normal WBC. Significant clinical improvement. Patient will be discharged to subacute rehab pending results of repeat urine culture, clearance from pulmonary, nephrology, ID and authorization, in a stable condition with guarded prognosis. Recomme ndations regarding resuming Plavix as per GI. DC antibiotics as per infectious disease. - Exam GENERAL: This is a 58-year-old in no apparent distress at the time of examination. Pleasant and cooperative. HEENT: Head is atraumatic, normocephalic. Pupils are equal, round, and reactive to light. Sclerae anicteric. Conjunctivae are clear. Mucus membranes of the mouth are moist. Neck is supple. RESPIRATORY: Clear to auscultation. No rhonchi, crackles, no wheezes. CARDIOVASCULAR: Regular rate and rhythm. S1 and S2 noted. No systolic or diastolic murmur auscultated. No JVD noted. No S3 or S4 noted. GASTROINTESTINAL: No distention noted. Abdomen soft and round. Normal active bowel sounds auscultated x 4 quadrants. No pain or tenderness noted upon p alpation. INTEGUMENTARY: Multiple contusions to her right knee. Dressing placed on her right foot. Left [id number] amputation stump intact with known multiple bruising on the left knee.. EXTREMITIES: Left kbekm-[id number]-vtld amputation. Ulcerations on right foot currently under wound care by Dr. Hunt at [facility]. New marie sized blister right inner medial foot,dry NEUROLOGIC: Cranial nerves II-XII intact. PSYCHIATRIC: Awake, alert, and oriented X 2. Appropriate affect. Microbiology 10/07/19 06:00 Urine,Voided Urine Culture - Preliminary Gram Neg Bacilli Group D Enterococcus 10/01/19 18:31 Blood Blood Culture - Final No Growth after 144 hours 10/01/19 17:07 Urine,Catheterized Urine Culture - Preliminary Klebsiella pneumoniae The impression and plan of care has been dictated as directed. .: I performed a history and examination of this patient, discussed the same with the dictator. I agree with the dictator's note ,documented as a scribe. Any additional findings or plans will be noted. Patient Condition at Discharge: Stable Plan - Discharge Summary Discharge Rx Participant: No New Discharge Prescriptions: New Baclofen [Lioresal] 10 mg PO BID PRN tab PRN Reason: Muscle Spasm Pantoprazole Sodium [Protonix] 40 mg PO DAILY #30 tablet.dr INSULIN LISPRO (HumaLOG) [humaLOG] 0 unit SQ ACHS #1 vial Continue Atenolol [Tenormin] 50 mg PO DAILY Citalopram Hydrobromide [CeleXA] 40 mg PO DAILY Gabapentin [Neurontin] 200 mg PO TID #18 cap Changed Insulin Glargine,Hum.rec.anlog [Lantus Solostar] 20 unit SQ HS #0 Discontinued Colchicine [Colcrys] 0.6 mg PO DAILY Allopurinol [Zyloprim] 300 mg PO QAM Enalapril [Vasotec] 20 mg PO BID Potassium Chloride [Klor-Con 20] 20 meq PO BID Cyclobenzaprine [Flexeril] 10 mg PO DAILY PRN PRN Reason: Pain metFORMIN HCL 500 mg PO BID Furosemide [Lasix] 40 mg PO DAILY #10 tablet Atorvastatin [Lipitor] 40 mg PO HS traMADol HCl [Ultram] 50 mg PO Q8H PRN PRN Reason: MODERATE TO SEVERE Pain No Action Clopidogrel Bisulfate [Plavix] 75 mg PO HS Discharge Medication List Atenolol [Tenormin] 50 mg PO DAILY 04/25/19 [History] Citalopram Hydrobromide [CeleXA] 40 mg PO DAILY 04/25/19 [History] Clopidogrel Bisulfate [Plavix] 75 mg PO HS 06/01/19 [History] Baclofen [Lioresal] 10 mg PO BID PRN tab 10/09/19 [Rx] Gabapentin [Neurontin] 200 mg PO TID #18 cap 10/09/19 [Rx] INSULIN LISPRO (HumaLOG) [humaLOG] 0 unit SQ ACHS #1 vial 10/09/19 [Rx] Insulin Glargine,Hum.rec.anlog [Lantus Solostar] 20 unit SQ HS #0 10/09/19 [Rx] Pantoprazole Sodium [Protonix] 40 mg PO DAILY #30 tablet. 10/09/19 [Rx] Follow up Appointment(s)/Referral(s): Paty Cortez MD [STAFF PHYSICIAN] - 1 Week Rene Armijo DO [Primary Care Provider] - 1 Week (After DC from subacute rehab) [facility], [NON-STAFF] - 1 Week Juan Hunt MD [STAFF PHYSICIAN] - 1-2 Days Aziza Adams MD [STAFF PHYSICIAN] - 2 Weeks Activity/Diet/Wound Care/Special Instructions: Obtain clearance to resume Plavix as per GI .Dr. Regan wants to follow up on Tuesday in the wound care center at [facility] ELIEL, BMP in 3 days
--- NOTE | 2019-10-09 12:39 | P.PN ---
Subjective Progress Note Date: 10/09/19 Principal diagnosis: Sepsis secondary to urinary tract infection, GI bleeding The patient is seen today 10/05/2019 in follow-up on the regular medical floor. She is awake and alert in no acute distress. She is status post 4 units of packed red blood cells this admission. She did undergo upper endoscopy that revealed mild antral gastritis, duodenitis and mild esophagitis. Colonoscopy canceled due to poor prep. No shortness of breath, cough or congestion. Maintaining O2 saturations in the 90s on room air. She's afebrile. Urine culture was positive for Klebsiella pneumoniae a. Blood cultures reveal no growth. Sodium 142. Potassium 3.1. Creatinine 3.95. She is continued on meropenem. Continued on IV Protonix. The patient is seen today 10/06/2019 in follow-up on the regular medical floor. She remains awake and alert in no acute distress. Urine culture was positive for Klebsiella pneumoniae. Blood cultures reveal no growth. White count 9.4. Hemoglobin 9.4. Sodium 139. Potassium 3.0. Creatinine 3.44. She is continued on 0.9 normal saline at 75 ML's per hour. Antibiotics in the form of meropenem. She did undergo colonoscopy this morning. No active bleeding old blood or pathology to explain anemia. Normal-appearing colon from rectum to cecum. Moderate sigmoid diverticulosis. The patient is seen today 10/07/2019 in follow-up on the regular medical floor. Awake and alert in no acute distress. Continues to maintain good O2 saturations in the 90s on room air. She's been afebrile. Urine culture positive for Klebsiella pneumoniae. Blood culture revealed no growth. White count 8.3. Hemoglobin 8.6. Sodium 137. Potassium 3.4. Creatinine 3.25. Urinalysis today reveals moderate blood, large leukocyte, high WBCs and moderate bacteria. She remains on meropenem. ID is on the case. On 10/08/2019 patient seen in follow-up on a general medical surgical floor, she is awake and alert, in no acute distress, denies any difficulty breathing, room air pulse ox is 97%, no fever or chills, hemodynamically stable, no acute events overnight. No complaints, she has a Doran catheter in, producing clear yellow urine, she is in -820 ML fluid balance over the last 24 hours. Remains on meropenem for ESBL producing Klebsiella pneumonia urinary tract infection, repeat urine culture was sent, results are pending at this time. No altered mentation, hemodynamically patient is stable, his renal function is improving, B1 is 70, creatinine is 2.81 on today's labs. Today's hemoglobin is 8.9 without evidence of bleeding On 10/09/2019 patient seen in follow-up on general medical surgical floor. She is resting comfortably in bed, denies any difficulty breathing, lung sounds are clear, patient is on room air. Her pulse ox is 99%, afebrile, repeat urine culture shows gram-negative bacilli, and group D enterococcus, blood culture was negative, initial urine culture showed ESBL Klebsiella pneumonia. Patient is currently on meropenem, ID service is following. No fever or chills. No specific complaints. Restless surgery is following for her wound care in her right foot Objective - Vital Signs Vital signs: Vital Signs Temp 98.8 F 10/09/19 07:00 Pulse 49 L 10/09/19 07:00 Resp 16 10/09/19 08:07 BP 118/65 10/09/19 07:00 Pulse Ox 99 10/09/19 07:00 Intake & Output 10/08/19 10/09/19 10/09/19 18:59 06:59 18:59 Intake Total 600 1500 Output Total 1200 Balance 600 300 Intake: IV 600 900 Sodium Chloride 0.9% 1, 600 900 000 ml @ 75 mls/hr IV . [id number] [facility] Rx#:[id number] Oral 600 Output: Urine 1200 Other: Voiding Method Indwelling Catheter Indwelling Catheter Indwelling Catheter - Exam GENERAL EXAM: Alert, very pleasant, 58-year-old white female room air with a pulse ox of 97% comfortable in no apparent distress. HEAD: Normocephalic/atraumatic. EYES: Normal reaction of pupils, equal size. Conjunctiva pink, sclera white. NOSE: Clear with pink turbinates. THROAT: No erythema or exudates. NECK: No masses, no JVD, no thyroid enlargement, no adenopathy. CHEST: No chest wall deformity. Symmetrical expansion. LUNGS: Equal air entry with no crackles, wheeze, rhonchi or dullness. CVS: Regular rate and rhythm, normal S1 and S2, no gallops, no murmurs, no rubs ABDOMEN: Soft, nontender. No hepatosplenomegaly, normal bowel sounds, no guarding or rigidity. EXTREMITIES: No clubbing, no edema, no cyanosis, 2+ pulses and upper and lower extremities. MUSCULOSKELETAL: Muscle strength and tone normal. SPINE: No scoliosis or deformity SKIN: No rashes CENTRAL NERVOUS SYSTEM: Alert and oriented -3. No focal deficits, tone is no rmal in all 4 extremities. PSYCHIATRIC: Alert and oriented -3. Appropriate affect. Intact judgment and insight. - Labs CBC & Chem 7: 10/09/19 07:32 10/09/19 07:32 Labs: Abnormal Lab Results - Last 24 Hours (Table) 10/08/19 10/08/19 10/08/19 Range/Units 11:44 16:21 21:18 RBC (3.80-5.40) m/uL Hgb (11.4-16.0) gm/dL Hct (34.0-46.0) % RDW (11.5-15.5) % Sodium (137-145) mmol/L Chloride (98-107) mmol/L Carbon Dioxide (22-30) mmol/L BUN (7-17) mg/dL Creatinine (0.52-1.04) mg/dL Glucose (74-99) mg/dL POC Glucose (mg/dL) 195 H 169 H 161 H (75-99) mg/dL Calcium (8.4-10.2) mg/dL 10/09/19 10/09/19 10/09/19 Range/Units 07:32 07:32 11:26 RBC 2.96 L (3.80-5.40) m/uL Hgb 8.6 L (11.4-16.0) gm/dL Hct 26.8 L (34.0-46.0) % RDW 16.1 H (11.5-15.5) % Sodium 136 L (137-145) mmol/L Chloride 109 H (98-107) mmol/L Carbon Dioxide 20 L (22-30) mmol/L BUN 84 H (7-17) mg/dL Creatinine 2.36 H (0.52-1.04) mg/dL Glucose 64 L (74-99) mg/dL POC Glucose (mg/dL) 155 H (75-99) mg/dL Calcium 7.7 L (8.4-10.2) mg/dL Microbiology - Last 24 Hours (Table) 10/07/19 06:00 Urine Culture - Preliminary Urine,Voided Gram Neg Bacilli Group D Enterococcus Assessment and Plan Plan: Assessment: 1 Sepsis secondary to ESBL producing Klebsiella pneumoniae urinary tract infection, currently on meropenem ID is on the case. Repeat urine culture shows gram-negative bacilli, and group D enterococcus 2 Acute blood loss anemia status post 4 units of packed red blood cells this admission. EGD performed today revealed evidence of mild esophagitis, gastritis, duodenitis. Colonoscopy revealed no evidence of active bleeding or old blood to explain anemia. Normal-appearing colon from rectum to cecum. Moderate sigmoid diverticulosis. 3 Acute kidney injury with hyperkalemia and anion gap metabolic acidosis, improved. Current creatinine 3.25. Potassium 3.8. On 10/09/2019 creatinine is improving and is down to 2.36 4 History of old left cerebellar infarct 5 Diabetes mellitus 6 Hyperlipidemia 7 Benign essential hypertension 8 Degenerative joint disease 9 Peripheral artery disease 10 Left [id number]-uwi-vrif amputation 11 Chronic right heel ulcer 12 Previous history of chronic tobacco dependence Plan: Clinically stable, no fever or chills, however repeat urine culture is showing gram-negative and group D enterococcus, and ID service on the case, patient denies any pulmonary complaints. She is on room air, no difficulty breathing, no cough or congestion, renal profile is improving on today's labs, she will need ECF placement when she is ready for discharge and insurance authorization is pending I performed a history & physical examination of the patient and discussed their management with my nurse practitioner, Nanette Andujar. I reviewed the nurse practitioner's note and agree with the documented findings and plan of care. Lung sounds are positive for diminished breath sounds. The findings and the impression was discussed with the patient. I attest to the documentation by the nurse practitioner. Time with Patient: Less than 30
--- NOTE | 2019-10-09 14:17 | PN ---
PROGRESS NOTE Patient is seen for followup for acute kidney injury. She is currently maintained on IV fluids. Renal function continues to improve. Serum creatinine is down to 2.36. PHYSICAL EXAMINATION: Today blood pressure was 118/65, heart rate 49 per minute, patient is afebrile. Examination of the heart S1, S2. Examination of the lungs, decreased breath sounds at bases. Abdomen is soft, nontender. Examination of the lower extremities shows trace edema. Patient has left BKA. REAL ESTATE ANALYST exam grossly intact. LABS: Show sodium 136, potassium 3.9, chloride 109, BUN 84, creatinine 2.36, hemoglobin 8.6 g/dL. ASSESSMENT: 1. Acute kidney injury prerenal/ATN, currently significantly improved, maintained on IV fluids. 2. Urinary tract infection secondary to Klebsiella pneumonia. 3. Sepsis associated with Klebsiella pneumoniae, UTI. 4. Acute blood loss anemia, status post EGD and colonoscopy with no evidence of active bleeding noted, status post packed RBCs transfusion initially. 5. Metabolic acidosis, now improved. 6. History of left below-knee amputation. PLAN: Encourage increased oral intake, may continue IV fluids. Continue to avoid nephrotoxic agents. MMODL / IJN: [id number] /
--- NOTE | 2019-10-09 14:17 | PN ---
PROGRESS NOTE DATE OF SERVICE: 10/09/2019 REASON FOR FOLLOWUP: Urinary tract infection, right heel wound. INTERVAL HISTORY: The patient is currently afebrile. The patient is breathing comfortably. Denies having any chest pain. No shortness of breath or cough. No abdominal pain or diarrhea. PHYSICAL EXAMINATION: Blood pressure 118/65 with a pulse of 49, temperature 98.8, she is 99% on room air. General description is a middle-aged female, up in the bed in no distress. RESPIRATORY SYSTEM: Unlabored breathing, clear to auscultation anteriorly. HEART: S1, S2. Regular rate and rhythm. ABDOMEN: Soft. No tenderness. Right foot wound is dressed up, no obvious drainage on the dressing. LABS: Hemoglobin 8.6, white count 8.7, BUN of 84, creatinine is 2.36. DIAGNOSTIC IMPRESSION AND PLAN: 1. Patient with Klebsiella ESBL/CRE Klebsiella pneumonia. We are waiting for the repeat urine to be finalized. Keep the patient on meropenem. 2. Right heel wound, Medihoney with to the lateral border. Keep the area off the pressure. MMODL / IJN: [id number] /
[2019-10-09 16:51] LABS: Glucose,Whole Blood 142 mg/dL (75-99)
[2019-10-09 20:54] LABS: Glucose,Whole Blood 176 mg/dL (75-99)
[2019-10-09] MEDS: INSULIN DETEMIR (LEVEMIR) 100 UNIT/ML SYR SQ SCH (21:21)
[2019-10-09] MEDS: SODIUM CHLORIDE 0.9% 1,000 ML IV SCH (21:22)
[2019-10-10] MEDS: MEROPENEM 1 GM in SODIUM CHLORIDE 0.9% 100 ML IVPB SCH ×2 (03:07→14:59)
[2019-10-10 07:30] LABS: Glucose,Whole Blood 87 mg/dL (75-99)
[2019-10-10] MEDS: INSULIN ASPART (NovoLOG) 100 UNIT/ML VIAL SQ SCH ×4 (07:37→21:21)
[2019-10-10] MEDS: GABAPENTIN 100 MG CAP PO SCH ×3 (07:38→21:23)
[2019-10-10] MEDS: NYSTATIN 100,000 UNIT/ML SUSP 500,000 UNIT/5 ML CUP PO SCH ×4 (07:38→21:22)
[2019-10-10] MEDS: CITALOPRAM HYDROBROMIDE 20 MG TAB PO SCH (07:38)
[2019-10-10] MEDS: ATENOLOL 50 MG TAB PO SCH (07:38)
[2019-10-10] MEDS: PANTOPRAZOLE 40 MG/10 ML VIAL IV SCH (07:39)
[2019-10-10] MEDS: SODIUM CHLORIDE 0.9% 1,000 ML IV SCH (07:39)
[2019-10-10 11:50] LABS: Glucose,Whole Blood 184 mg/dL (75-99)
--- NOTE | 2019-10-10 11:59 | P.PN ---
Subjective Progress Note Date: 10/10/19 Principal diagnosis: Sepsis secondary to urinary tract infection, GI bleed The patient is seen today 10/05/2019 in follow-up on the regular medical floor. She is awake and alert in no acute distress. She is status post 4 units of packed red blood cells this admission. She did undergo upper endoscopy that revealed mild antral gastritis, duodenitis and mild esophagitis. Colonoscopy canceled due to poor prep. No shortness of breath, cough or congestion. Maintaining O2 saturations in the 90s on room air. She's afebrile. Urine culture was positive for Klebsiella pneumoniae a. Blood cultures reveal no growth. Sodium 142. Potassium 3.1. Creatinine 3.95. She is continued on meropenem. Continued on IV Protonix. The patient is seen today 10/06/2019 in follow-up on the regular medical floor. She remains awake and alert in no acute distress. Urine culture was positive for Klebsiella pneumoniae. Blood cultures reveal no growth. White count 9.4. Hemoglobin 9.4. Sodium 139. Potassium 3.0. Creatinine 3.44. She is continued on 0.9 normal saline at 75 ML's per hour. Antibiotics in the form of meropenem. She did undergo colonoscopy this morning. No active bleeding old blood or pathology to explain anemia. Normal-appearing colon from rectum to cecum. Moderate sigmoid diverticulosis. The patient is seen today 10/07/2019 in follow-up on the regular medical floor. Awake and alert in no acute distress. Continues to maintain good O2 saturations in the 90s on room air. She's been afebrile. Urine culture positive for Klebsiella pneumoniae. Blood culture revealed no growth. White count 8.3. Hemoglobin 8.6. Sodium 137. Potassium 3.4. Creatinine 3.25. Urinalysis today reveals moderate blood, large leukocyte, high WBCs and moderate bacteria. She remains on meropenem. ID is on the case. On 10/08/2019 patient seen in follow-up on a general medical surgical floor, she is awake and alert, in no acute distress, denies any difficulty breathing, room air pulse ox is 97%, no fever or chills, hemodynamically stable, no acute events overnight. No complaints, she has a Doran catheter in, producing clear yellow urine, she is in -820 ML fluid balance over the last 24 hours. Remains on meropenem for ESBL producing Klebsiella pneumonia urinary tract infection, repeat urine culture was sent, results are pending at this time. No altered m entation, hemodynamically patient is stable, his renal function is improving, B1 is 70, creatinine is 2.81 on today's labs. Today's hemoglobin is 8.9 without evidence of bleeding On 10/09/2019 patient seen in follow-up on general medical surgical floor. She is resting comfortably in bed, denies any difficulty breathing, lung sounds are clear, patient is on room air. Her pulse ox is 99%, afebrile, repeat urine culture shows gram-negative bacilli, and group D enterococcus, blood culture was negative, initial urine culture showed ESBL Klebsiella pneumonia. Patient is currently on meropenem, ID service is following. No fever or chills. No specific complaints. Restless surgery is following for her wound care in her right foot The patient is seen today 10/10/2019 in follow-up on the regular medical floor. She is awake and alert in no acute distress. She continues to do well from the pulmonary standpoint. Maintaining good O2 saturations in the 90s on room air. She remains afebrile. Hemodynamically stable. Urine culture follow-up was positive for gram-negative bacilli, group D enterococcus. Blood culture revealed no growth. She remains on meropenem. Objective - Vital Signs Vital signs: Vital Signs Temp 98.8 F 10/10/19 07:00 Pulse 52 L 10/10/19 07:00 Resp 18 10/10/19 07:00 BP 108/66 10/10/19 07:00 Pulse Ox 95 10/10/19 07:00 Intake & Output 10/09/19 10/10/19 10/10/19 18:59 06:59 18:59 Intake Total 1300 Output Total 700 1100 Balance -700 200 Intake: Intake, IV Titration 1000 Amount Meropenem 1 gm In Sodium 100 Chloride 0.9% 100 ml @ 200 mls/hr IVPB Q12H [facility] Rx#:[id number] Sodium Chloride 0.9% 1, 900 000 ml @ 75 mls/hr IV . [id number] [facility] Rx#:[id number] Oral 300 Output: Urine 700 1100 Uretheral (Doran) 700 Other: Voiding Method Indwelling Catheter Indwelling Catheter Indwelling Catheter # Voids 1 # Bowel Movements 0 0 - Exam GENERAL EXAM: Alert, pleasant 58-year-old female patient, on room air, comfortable in no apparent distress. HEAD: Normocephalic. EYES: Normal reaction of pupils, equal size. NOSE: Clear with pink turbinates. THROAT: No erythema or exudates. NECK: No masses, no JVD. CHEST: No chest wall deformity. LUNGS: Equal air entry with few scattered crackles CVS: S1 and S2 normal with no audible murmur, regular rhythm. ABDOMEN: No hepatosplenomegaly, normal bowel sounds, no guarding or rigidity. SPINE: No scoliosis or deformity SKIN: No rashes CENTRAL NERVOUS SYSTEM: No focal deficits, tone is normal in all 4 extremities. EXTREMITIES: Left dllkb-sxl-ctml amputation. There is no peripheral edema. No clubbing, no cyanosis. Peripheral pulses are intact. - Labs CBC & Chem 7: 10/09/19 07:32 10/09/19 07:32 Labs: Abnormal Lab Results - Last 24 Hours (Table) 10/09/19 10/09/19 10/10/19 Range/Units 16:50 20:53 11:47 POC Glucose (mg/dL) 142 H 176 H 184 H (75-99) mg/dL Assessment and Plan Assessment: 1 Sepsis secondary to Klebsiella pneumoniae urinary tract infection, today's urinalysis still with bacteria and increased WBCs. Currently on meropenem. ID is on the case. 2 Acute blood loss anemia status post 4 units of packed red blood cells this admission. EGD performed today revealed evidence of mild esophagitis, gastritis, duodenitis. Colonoscopy revealed no evidence of active bleeding or old blood to explain anemia. Normal-appearing colon from rectum to cecum. Moderate sigmoid diverticulosis. 3 Acute kidney injury with hyperkalemia and anion gap metabolic acidosis, improved. Current creatinine 3.25. Potassium 3.8. 4 History of old left cerebellar infarct 5 Diabetes mellitus 6 Hyperlipidemia 7 Benign essential hypertension 8 Degenerative joint disease 9 Peripheral artery disease 10 Left uivzv-ztg-vlxk amputation 11 Chronic right heel ulcer 12 Previous history of chronic tobacco dependence Plan: The patient was seen and evaluated by Dr. Abby Vincent from the pulmonary standpoint Remains on meropenem ID is on the case We will see as needed I, the cosigning physician, performed a history & physical examination of the patient. Lungs sounds with few scattered crackles. Maintaining good O2 saturati ons in the 90s on room air. I discussed the assessment and plan of care with my nurse practitioner, Yulissa Bradley. I attest to the above note as dictated by her.
[2019-10-10] MEDS: MORPHINE SULFATE 4 MG/ML SYRINGE IV PRN (12:11)
--- NOTE | 2019-10-10 13:28 | P.PN ---
Subjective Progress Note Date: 10/10/19 This is a 58-year-old female admitted with multiple medical issues, scheduled for EGD and colonoscopy today. Hemoglobin 3.1, receiving supplements as per nephrology. Creatinine trending down, 3.95. Urine cultures reporting Klebsiella/ESBL. Preliminary blood cultures reporting no growth. Afebrile currently, T-max 99.1. Maintained on Merrem. 10/08/2019 minimal ambulation. Maintained on IV fluids. EGD on 10/04 revealed mild antral gastritis, duodenitis and mild esophagitis. Colonoscopy not perfo rmed secondary to poor prep. Rescheduled, performed over the weekend reported no active bleeding, normal-appearing colon from rectum to cecum, impaired complete visualization of the mucosa secondary to poor prep, moderate sigmoid diverticulosis, mild internal hemorrhoids, biopsies obtained. Hemoglobin 8.9, creatinine trending down to 2.81. Potassium 3.8. Maintained on IV antibiotics of Merrem and local wound care as per infectious disease. Afebrile. Normal WBC. 10/09/2019Significant clinical improvement. Patient will be discharged to subacute rehab pending results of repeat urine culture, clearance from pulmonary, nephrology, ID and authorization, in a stable condition with guarded prognosis. Recommendations regarding resuming Plavix as per GI. DC antibiotics as per infectious disease. 10/10/2019 continues to require maximum assist as per PT evaluation. Maintained on Merrem, repeat preliminary urine culture reporting enterococcus D, gram- negative bacilli. T-max 99.6. Labs pending. Good diet intake. Denies abdominal pain. Denies nausea vomiting or diarrhea. Denies chest pain, palpitations. Denies shortness of breath. Objective - Vital Signs Vital signs: Vital Signs Temp 98.8 F 10/10/19 07:00 Pulse 52 L 10/10/19 07:00 Resp 18 10/10/19 07:00 BP 108/66 10/10/19 07:00 Pulse Ox 95 10/10/19 07:00 Intake & Output 10/09/19 10/10/19 10/10/19 18:59 06:59 18:59 Intake Total 1300 Output Total 700 1100 Balance -700 200 Intake: Intake, IV Titration 1000 Amount Meropenem 1 gm In Sodium 100 Chloride 0.9% 100 ml @ 200 mls/hr IVPB Q12H [facility] Rx#:[id number] Sodium Chloride 0.9% 1, 900 000 ml @ 75 mls/hr IV . [id number] [facility] Rx#:[id number] Oral 300 Output: Urine 700 1100 Uretheral (Doran) 700 Other: Voiding Method Indwelling Catheter Indwelling Catheter Indwelling Catheter # Voids 1 # Bowel Movements 0 0 - Exam GENERAL: This is a 58-year-old in no apparent distress at the time of examination. Pleasant and cooperative. HEENT: Head is atraumatic, normocephalic. Pupils are equal, round, and reactive to light. Sclerae anicteric. Conjunctivae are clear. Mucus membranes of the mouth are moist. Neck is supple. RESPIRATORY: Clear to auscultation. No rhonchi, occasional fine crackles, no wheezes. No use of accessory muscles. Patient maintaining oxygen saturation greater than 92%. No chest wall tenderness is noted on palpation or with deep breathing. CARDIOVASCULAR: Regular rate and rhythm. S1 and S2 noted. No systolic or diastolic murmur auscultated. No JVD noted. No S3 or S4 noted. GASTROINTESTINAL: No distention noted. Abdomen soft and round. Normal active bowel sounds auscultated x 4 quadrants. No pain or tenderness noted upon palpation. INTEGUMENTARY: Multiple contusions to her right knee. Dressing placed on her right foot. Left nmfoy-wog-byza amputation stump intact with known multiple bruising on the left knee.. EXTREMITIES: Left hgfbv-mis-lvjy amputation. Ulcerations on right foot currently under wound care by Dr. Hunt at [facility]. New marie sized blister right inner medial foot,dry NEUROLOGIC: Cranial nerves II-XII intact. PSYCHIATRIC: Awake, alert, and oriented X 2. Appropriate affect. Microbiology 10/07/19 06:00 Urine,Voided Urine Culture - Preliminary Gram Neg Bacilli Group D Enterococcus 10/01/19 18:31 Blood Blood Culture - Final No Growth after 144 hours 10/01/19 17:07 Urine,Catheterized Urine Culture - Preliminary Klebsiella pneumoniae - Labs CBC & Chem 7: 10/09/19 07:32 10/09/19 07:32 Labs: Abnormal Lab Results - Last 24 Hours (Table) 10/09/19 10/09/19 10/10/19 Range/Units 16:50 20:53 11:47 POC Glucose (mg/dL) 142 H 176 H 184 H (75-99) mg/dL Assessment and Plan Assessment: (1) Sepsis secondary to acute UTI with Klebsiella ESBL, repeat urine culture reporting gram-negative bacilli, group D enterococcus Current Visit: Yes Status: Acute Code(s): A41.9 - SEPSIS, UNSPECIFIED ORGANISM SNOMED Code(s): 77677608 Current Visit: Yes Status: Acute Code(s): N39.0 - URINARY TRACT INFECTION, SITE NOT SPECIFIED SNOMED Code(s): 08349750 (2) Acute kidney injury superimposed on chronic kidney disease stage III, possibly acute tubular necrosis with prerenal factors, present on admission. Current Visit: Yes Status: Acute Code(s): N17.9 - ACUTE KIDNEY FAILURE, UNSPECIFIED; N18.9 - CHRONIC KIDNEY DISEASE, UNSPECIFIED SNOMED Code(s): 37306709 (3) GI bleed with Anemia, acute blood loss, status post 4 units packed RBCs transfused.Status post EGD reporting mild antral gastritis, duodenitis and esophagitis. Colonoscopy reporting no active bleeding, black or pathology to explain anemia. Impaired visualization, mucosa secondary to poor prep. Modera te sigmoid diverticulosis. Mild internal hemorrhoids. Biopsies obtained Current Visit: Yes Status: Acute Code(s): D64.9 - ANEMIA, UNSPECIFIED SNOMED Code(s): 622627760 Current Visit: Yes Status: Acute Code(s): K92.2 - GASTROINTESTINAL HEMORRHAGE, UNSPECIFIED SNOMED Code(s): 13536240 (4) Dehydration Current Visit: Yes Status: Acute Code(s): E86.0 - DEHYDRATION SNOMED Code( s): 23185402 (6) Hyperkalemia Current Visit: Yes Status: Acute Code(s): E87.5 - HYPERKALEMIA SNOMED Code(s): 89989223 (7) Diabetic ulcer with necrotic changes, possibly pressure related of right foot associated with diabetes mellitus due to underlying condition Current Visit: Yes Status: Acute Code(s): E08.621 - DIABETES MELLITUS DUE TO UNDERLYING CONDITION W FOOT ULCER; L97.519 - NON-PRS CHRONIC ULCER OTH PRT RIGHT FOOT W UNSP SEVERITY SNOMED Code(s): 005289736 (8) hypokalemia (9) Cerebrovascular accident Current Visit: No Status: Acute Code(s): I63.9 - CEREBRAL INFARCTION, UNSPECIFIED SNOMED Code(s): 449113735 (10) Diabetes mellitus type 2, uncontrolled, with complications Current Visit: No Status: Acute Code(s): E11.8 - TYPE 2 DIABETES MELLITUS WITH UNSPECIFIED COMPLICATIONS; E11.65 - TYPE 2 DIABETES MELLITUS WITH HY PERGLYCEMIA SNOMED Code(s): 20249819 (11) Peripheral artery disease Current Visit: No Status: Acute Code(s): I73.9 - PERIPHERAL VASCULAR DISEASE, UNSPECIFIED SNOMED Code(s): 853033894 (12) Smoker Current Visit: No Status: Acute Code(s): F17.200 - NICOTINE DEPENDENCE, UNSPECIFIED, UNCOMPLICATED SNOMED Code(s): 98271331 (13) Dyslipidemia Current Visit: No Status: Chronic Code(s): E78.5 - HYPERLIPIDEMIA, UNSPECIFIED SNOMED Code(s): 893793305 (14) Hypertension Current Visit: No Status: Chronic Code(s): I10 - ESSENTIAL (PRIMARY) HYPERTENSION SNOMED Code(s): 00454164 Plan: Continue on current medication regime , PPI, monitoring and symptomatic treatment. Labs pending, final results of the repeat urine culture in progress. Wound care and IV antibiotics as per ID. PT/OT. Discharge planning in progress for subacute rehab. Per social work/case management, patient and son attempting to straighten out insurance issue before patient can proceed to subacute rehab. The impression and plan of care has been dictated as directed. : I performed a history and examination of this patient, discussed the same with the dictator. I agree with the dictator's note ,documented as a scribe. Any additional findings or plans will be noted.
[2019-10-10 14:14] LABS: Anisocytosis Slight; HCT 27.7 % (34.0-46.0); HGB 8.8 gm/dL (11.4-16.0); MCH 28.7 pg (25.0-35.0); MCHC 31.6 g/dL (31.0-37.0); MCV 90.6 fL (80.0-100.0); Mean Platelet Volume 9.7; Platelet Count 194 k/uL (150-450); RBC 3.06 m/uL (3.80-5.40); RDW 16.2 % (11.5-15.5); WBC 10.9 k/uL (3.8-10.6)
[2019-10-10 14:29] LABS: Calcium 7.7 mg/dL (8.4-10.2)
--- NOTE | 2019-10-10 14:58 | PN ---
PROGRESS NOTE Patient is seen for followup for acute kidney injury. Renal function continues to improve. Patient is maintained on IV fluids. No significant complaints today. PHYSICAL EXAMINATION: On examination, blood pressure was 108/66, heart rate 52 per minute, she is afebrile. Examination of the heart S1, S2. Examination of the lungs, bilateral breath sounds are heard. Decreased breath sounds at bases. Abdomen is soft, nontender. Examination of the lower extremities shows right lower extremity to be currently wrapped and patient has left BKA. [employer] exam grossly intact. LABS: Show sodium 132, potassium 4.0, chloride 106, CO2 is 19, BUN 89, creatinine down to 2.28. ASSESSMENT: 1. Acute kidney injury, ATN associated with volume depletion, currently improving. Patient is maintained on IV fluids. She has good urine output. 2. Urinary tract infection and sepsis. 3. Klebsiella pneumoniae urinary tract infection. 4. Acute blood loss anemia, status post EGD and colonoscopy with no active bleeding noted. 5. Left BKA. 6. Metabolic acidosis, now improved. PLAN: Continue to encourage increased oral intake. May continue IV fluids for now. We can remove the Doran catheter. MMODL / IJN: [id number] /
--- NOTE | 2019-10-10 16:31 | PN ---
PROGRESS NOTE DATE OF SERVICE: 10/10/2019 REASON FOR FOLLOWUP: VRE urinary tract infection. INTERVAL HISTORY: The patient is currently afebrile, patient is breathing comfortably. The patient denies having any chest pain, no shortness of breath or cough. No abdominal pain or diarrhea currently waiting for placement. PHYSICAL EXAMINATION: Blood pressure 130/66, pulse of 52, temperature 98.8. She is 95% on room air. General description is a middle-aged female, up in the bed in no distress. RESPIRATORY SYSTEM: Unlabored breathing, clear to auscultation anteriorly. HEART: S1, S2. Regular rate and rhythm. The right foot is currently dressed. No obvious drainage on the dressing. LABS: Hemoglobin 8.8, white count 10.9, BUN of 18, creatinine is 2.28. DIAGNOSTIC IMPRESSION AND PLAN: 1. Patient with VRE closely UTI infection, repeat is still positive, though ID sensitivity still pending. More likely cystitis clinically doubt deep infection. Recommend discontinue meropenem on discharge. 2. Right foot wound. Local care per Surgery. Continue supportive care. MMODL / IJN: [id number] /
[2019-10-10 17:03] LABS: Glucose,Whole Blood 141 mg/dL (75-99)
[2019-10-10 20:26] LABS: Glucose,Whole Blood 204 mg/dL (75-99)
[2019-10-10] MEDS: INSULIN DETEMIR (LEVEMIR) 100 UNIT/ML SYR SQ SCH (21:21)
[2019-10-11] MEDS: MEROPENEM 1 GM in SODIUM CHLORIDE 0.9% 100 ML IVPB SCH ×2 (03:11→16:58)
[2019-10-11] MEDS: SODIUM CHLORIDE 0.9% 1,000 ML IV SCH ×2 (05:29→12:36)
[2019-10-11 07:39] LABS: Glucose,Whole Blood 81 mg/dL (75-99)
[2019-10-11] MEDS: INSULIN ASPART (NovoLOG) 100 UNIT/ML VIAL SQ SCH ×4 (07:47→22:24)
[2019-10-11] MEDS: GABAPENTIN 100 MG CAP PO SCH ×3 (08:29→22:24)
[2019-10-11] MEDS: PANTOPRAZOLE 40 MG/10 ML VIAL IV SCH (08:29)
[2019-10-11] MEDS: CITALOPRAM HYDROBROMIDE 20 MG TAB PO SCH (08:29)
[2019-10-11] MEDS: NYSTATIN 100,000 UNIT/ML SUSP 500,000 UNIT/5 ML CUP PO SCH ×4 (08:29→22:25)
[2019-10-11] MEDS: ATENOLOL 50 MG TAB PO SCH (08:30)
[2019-10-11 08:36] LABS: Anisocytosis Slight; Basophils % (A) 0 %; Eosinophils # (A) 0.2 k/uL (0-0.7); Eosinophils % (A) 2 %; Lymphocytes # (A) 1.5 k/uL (1.0-4.8); Lymphocytes % (A) 14 %; MCH 28.7 pg (25.0-35.0); MCHC 31.9 g/dL (31.0-37.0); MCV 89.8 fL (80.0-100.0); Mean Platelet Volume 10.2; Monocytes # (A) 0.9 k/uL (0-1.0); Monocytes % (A) 9 %; Neutrophils # (A) 8.2 k/uL (1.3-7.7); Neutrophils % (A) 74 %; Platelet Count 193 k/uL (150-450); RBC 3.12 m/uL (3.80-5.40); RDW 16.2 % (11.5-15.5)
[2019-10-11 08:56] LABS: Calcium 7.8 mg/dL (8.4-10.2); Potassium 3.9 mmol/L (3.5-5.1)
--- NOTE | 2019-10-11 10:16 | P.PN ---
Subjective Progress Note Date: 10/11/19 This is a 58-year-old female admitted with multiple medical issues, scheduled for EGD and colonoscopy today. Hemoglobin 3.1, receiving supplements as per nephrology. Creatinine trending down, 3.95. Urine cultures reporting Klebsiella/ESBL. Preliminary blood cultures reporting no growth. Afebrile currently, T-max 99.1. Maintained on Merrem. 10/08/2019 minimal ambulation. Maintained on IV fluids. EGD on 10/04 revealed mild antral gastritis, duodenitis and mild esophagitis. Colonoscopy not perfo rmed secondary to poor prep. Rescheduled, performed over the weekend reported no active bleeding, normal-appearing colon from rectum to cecum, impaired complete visualization of the mucosa secondary to poor prep, moderate sigmoid diverticulosis, mild internal hemorrhoids, biopsies obtained. Hemoglobin 8.9, creatinine trending down to 2.81. Potassium 3.8. Maintained on IV antibiotics of Merrem and local wound care as per infectious disease. Afebrile. Normal WBC. 10/09/2019Significant clinical improvement. Patient will be discharged to subacute rehab pending results of repeat urine culture, clearance from pulmonary, nephrology, ID and authorization, in a stable condition with guarded prognosis. Recommendations regarding resuming Plavix as per GI. DC antibiotics as per infectious disease. 10/10/2019 continues to require maximum assist as per PT evaluation. Maintained on Merrem, repeat preliminary urine culture reporting enterococcus D, gram- negative bacilli. T-max 99.6. Labs pending. Good diet intake. Denies abdominal pain. Denies nausea vomiting or diarrhea. Denies chest pain, palpitations. Denies shortness of breath. 10/11/2019 T-max 99.4, WBC 11,, creatinine down to 2.6. Repeat urine cultures noted. ID recommending discontinuing Merrem on discharge. Denies chest pain, palpitations, shortness of breath. Vital signs stable. Objective - Vital Signs Vital signs: Vital Signs Temp 98.9 F 10/11/19 07:00 Pulse 58 L 10/11/19 07:00 Resp 18 10/11/19 07:00 BP 106/66 10/11/19 07:00 Pulse Ox 96 10/11/19 07:00 Intake & Output 10/10/19 10/11/19 10/11/19 18:59 06:59 18:59 Intake Total 1050 Output Total 900 500 Balance -900 550 Intake: Intake, IV Titration 950 Amount Meropenem 1 gm In Sodium 100 Chloride 0.9% 100 ml @ 200 mls/hr IVPB Q12H EUGENIO Rx#:[id number] Sodium Chloride 0.9% 1, 850 000 ml @ 75 mls/hr IV . [id number] EUGENIO Rx#:[id number] Oral 100 Output: Urine 900 500 Other: Voiding Method Indwelling Catheter Indwelling Catheter Indwelling Catheter # Bowel Movements 0 - Exam GENERAL: This is a 58-year-old in no apparent distress at the time of examination. Pleasant and cooperative. HEENT: Head is atraumatic, normocephalic. Pupils are equal, round, and reactive to light. Sclerae anicteric. Conjunctivae are clear. Mucus membranes of the mouth are moist. Neck is supple. RESPIRATORY: Clear to auscultation. No rhonchi, occasional fine crackles, no wheezes. No use of accessory muscles. Patient maintaining oxygen saturation greater than 92%. No chest wall tenderness is noted on palpation or with deep breathing. CARDIOVASCULAR: Regular rate and rhythm. S1 and S2 noted. No systolic or diastolic murmur auscultated. No JVD noted. No S3 or S4 noted. GASTROINTESTINAL: No distention noted. Abdomen soft and round. Normal active bowel sounds auscultated x 4 quadrants. No pain or tenderness noted upon palpation. INTEGUMENTARY: Multiple contusions to her right knee. Dressing placed on her right foot. Left gngdo-wfz-wbbg amputation stump intact with known multiple bruising on the left knee.. EXTREMITIES: Left mgmcm-hnl-lgfm amputation. Ulcerations on right foot currently under wound care by Dr. Hunt at [facility]. New marie sized blister right inner medial foot,dry NEUROLOGIC: Cranial nerves II-XII intact. PSYCHIATRIC: Awake, alert, and oriented X 2. Appropriate affect. Microbiology 10/01/19 17:07 Urine,Catheterized Urine Culture - Preliminary Klebsiella pneumoniae 10/07/19 06:00 Urine,Voided Urine Culture - Final Klebsiella pneumoniae Enterococcus faecium 10/01/19 18:31 Blood Blood Culture - Final No Growth after 144 hours - Labs CBC & Chem 7: 10/11/19 07:50 10/11/19 07:50 Labs: Abnormal Lab Results - Last 24 Hours (Table) 10/10/19 10/10/19 10/10/19 Range/Units 11:47 13:55 13:55 WBC 10.9 H (3.8-10.6) k/uL RBC 3.06 L (3.80-5.40) m/uL Hgb 8.8 L (11.4-16.0) gm/dL Hct 27.7 L (34.0-46.0) % RDW 16.2 H (11.5-15.5) % Neutrophils # (1.3-7.7) k/uL Sodium 132 L (137-145) mmol/L Chloride (98-107) mmol/L Carbon Dioxide 19 L (22-30) mmol/L BUN 89 H (7-17) mg/dL Creatinine 2.28 H (0.52-1.04) mg/dL Glucose 156 H (74-99) mg/dL POC Glucose (mg/dL) 184 H (75-99) mg/dL Calcium 7.7 L (8.4-10.2) mg/dL 10/10/19 10/10/19 10/11/19 Range/Units 16:57 20:23 07:50 WBC 11.0 H (3.8-10.6) k/uL RBC 3.12 L (3.80-5.40) m/uL Hgb 9.0 L (11.4-16.0) gm/dL Hct 28.0 L (34.0-46.0) % RDW 16.2 H (11.5-15.5) % Neutrophils # 8.2 H (1.3-7.7) k/uL Sodium (137-145) mmol/L Chloride (98-107) mmol/L Carbon Dioxide (22-30) mmol/L BUN (7-17) mg/dL Creatinine (0.52-1.04) mg/dL Glucose (74-99) mg/dL POC Glucose (mg/dL) 141 H 204 H (75-99) mg/dL Calcium (8.4-10.2) mg/dL 10/11/19 Range/Units 07:50 WBC (3.8-10.6) k/uL RBC (3.80-5.40) m/uL Hgb (11.4-16.0) gm/dL Hct (34.0-46.0) % RDW (11.5-15.5) % Neutrophils # (1.3-7.7) k/uL Sodium 135 L (137-145) mmol/L Chloride 108 H (98-107) mmol/L Carbon Dioxide (22-30) mmol/L BUN 84 H (7-17) mg/dL Creatinine 2.16 H (0.52-1.04) mg/dL Glucose 56 L (74-99) mg/dL POC Glucose (mg/dL) (75-99) mg/dL Calcium 7.8 L (8.4-10.2) mg/dL Microbiology - Last 24 Hours (Table) 10/01/19 17:07 Urine Culture - Preliminary Urine,Catheterized Klebsiella pneumoniae 10/07/19 06:00 Urine Culture - Final Urine,Voided Klebsiella pneumoniae Enterococcus faecium Assessment and Plan Assessment: (1) Sepsis secondary to acute UTI with Klebsiella ESBL, repeat urine culture positive, ID following. Suspect cystitis Current Visit: Yes Status: Acute Code(s): A41.9 - SEPSIS, UNSPECIFIED ORGANISM SNOMED Code(s): 00863732 Current Visit: Yes Status: Acute Code(s): N39.0 - URINARY TRACT INFECTION, SITE NOT SPECIFIED SNOMED Code(s): 39179178 (2) Acute kidney injury superimposed on chronic kidney disease stage III, possibly acute tubular necrosis with prerenal factors, present on admission. Current Visit: Yes Status: Acute Code(s): N17.9 - ACUTE KIDNEY FAILURE, UNSPECIFIED; N18.9 - CHRONIC KIDNEY DISEASE, UNSPECIFIED SNOMED Code(s): 67697044 (3) GI bleed with Anemia, acute blood loss, status post 4 units packed RBCs transfused.Status post EGD reporting mild antral gastritis, duodenitis and esophagitis. Colonoscopy reporting no active bleeding, black or pathology to explain anemia. Impaired visualization, mucosa secondary to poor prep. Moderate sigmoid diverticulosis. Mild internal hemorrhoids. Biopsies obtained Current Visit: Yes Status: Acute Code(s): D64.9 - ANEMIA, UNSPECIFIED SNOMED Code(s): 655493469 Current Visit: Yes Status: Acute Code(s): K92.2 - GASTROINTESTINAL HEMORRHAGE, UNSPECIFIED SNOMED Code(s): 47021865 (4) Dehydration Current Visit: Yes Status: Acute Code(s): E86.0 - DEHYDRATION SNOMED Code(s): 04165826 (6) Hyperkalemia Current Visit: Yes Status: Acute Code(s): E87.5 - HYPERKALEMIA SNOMED Code(s): 40495194 (7) Diabetic ulcer with necrotic changes, possibly pressure related of right foot associated with diabetes mellitus due to underlying condition Current Visit: Yes Status: Acute Code(s): E08.621 - DIABETES MELLITUS DUE TO UNDERLYING CONDITION W FOOT ULCER; L97.519 - NON-PRS CHRONIC ULCER OTH PRT RIGHT FOOT W UNSP SEVERITY SNOMED Code(s): 816067957 (8) hypokalemia (9) Cerebrovascular accident Current Visit: No Status: Acute Code(s): I63.9 - CEREBRAL INFARCTION, UNSPECIFIED SNOMED Code(s): 708638553 (10) Diabetes mellitus type 2, uncontrolled, with complications Current Visit: No Status: Acute Code(s): E11.8 - TYPE 2 DIABETES MELLITUS WITH UNSPECIFIED COMPLICATIONS; E11.65 - TYPE 2 DIABETES MELLITUS WITH HYPERGLYCEMIA SNOMED Code(s): 25814179 (11) Peripheral artery disease Current Visit: No Status: Acute Code(s): I73.9 - PERIPHERAL VASCULAR DISEASE, UNSPECIFIED SNOMED Code(s): 131542913 (12) Smoker Current Visit: No Status: Acute Code(s): F17.200 - NICOTINE DEPENDENCE, UNSPECIFIED, UNCOMPLICATED SNOMED Code(s): 14191975 (13) Dyslipidemia Current Visit: No Status: Chronic Code(s): E78.5 - HYPERLIPIDEMIA, UNSPECIFIED SNOMED Code(s): 880794653 (14) Hypertension Current Visit: No Status: Chronic Code(s): I10 - ESSENTIAL (PRIMARY) HYPERTENSION SNOMED Code(s): 45683489 Plan: Continue on current medication regime , PPI, monitoring and symptomatic treatment. Wound care and IV antibiotics as per ID. PT/OT. Discharge planning in progress for subacute rehab.pending clearance / insurance confirmation as per SW- (Per social work/case management, patient and son attempting to straighten out insurance issue before patient can proceed to subacute rehab.) The impression and plan of care has been dictated as directed. : I performed a history and examination of this patient, discussed the same with the dictator. I agree with the dictator's note ,documented as a scribe. Any additional findings or plans will be noted.
[2019-10-11 11:30] LABS: Glucose,Whole Blood 173 mg/dL (75-99)
--- NOTE | 2019-10-11 14:22 | PN ---
PROGRESS NOTE DATE OF SERVICE: 10/11/2019 REASON FOR FOLLOWUP: Urinary tract infection and right heel wound. INTERVAL HISTORY: The patient is currently afebrile. The patient has been breathing comfortably. Denies having any chest pain. No shortness of breath or cough. No abdominal pain and no diarrhea. PHYSICAL EXAMINATION: On examination, her blood pressure is 106/56, pulse of 88, temperature 98.9. She is 96% on room air. General description is a middle-aged female, up in the bed in no distress. RESPIRATORY SYSTEM: Unlabored breathing, clear to auscultation anteriorly. HEART: S1, S2. Regular rate and rhythm. ABDOMEN: Soft, no tenderness. LABS: Urine now showing Enterococcus faecium, which is vancomycin sensitive but penicillin resistant as well as Klebsiella pneumonia, which is CRE. DIAGNOSTIC IMPRESSION AND PLAN: Patient with CRE positive urine culture with question of possible cystitis versus Doran colonization. Recommend discontinue the Doran catheter. The patient received about 8 days of IV meropenem which should be enough. Recommend no antibiotic on discharge. Right heel wound local care to continue per Surgery. Continue supportive care. MMODL / IJN: [id number] /
--- NOTE | 2019-10-11 14:43 | PN ---
PROGRESS NOTE Patient is seen for followup for acute kidney injury, mostly prerenal currently improved. Patient has been maintained on IV fluids. She has increase her oral intake. Creatinine has improved to 2.1 today. PHYSICAL EXAMINATION: On examination, patient is comfortable. Blood pressure is 106/66, heart rate 58 per minute, she is afebrile. Examination of the heart S1, S2. Examination of the lungs, decreased breath sounds at bases. Abdomen is soft, nontender. There is 1+ edema noted in the right lower extremity and the lower part of the leg is wrapped. The patient has left BKA. VISUAL ARTIST exam grossly intact. LABS: Show sodium of 135, potassium 3.9, chloride 108, BUN 84, creatinine 2.16. ASSESSMENT: 1. Acute kidney injury, ATN and severe volume depletion, currently significantly improved. I will discontinue the IV fluids as patient has developed mild hypervolemia. 2. Sepsis from urinary tract infection. 3. Klebsiella pneumoniae UTI. 4. Left BKA. 5. Metabolic acidosis, now resolved. 6. Acute blood loss anemia status post EGD and colonoscopy with no active bleeding noted. PLAN: Discontinue IV fluids. Continue to encourage increased oral intake. MMODL / IJN: [id number] /
[2019-10-11 16:24] LABS: Glucose,Whole Blood 124 mg/dL (75-99)
[2019-10-11 20:53] LABS: Glucose,Whole Blood 177 mg/dL (75-99)
[2019-10-11] MEDS: INSULIN DETEMIR (LEVEMIR) 100 UNIT/ML SYR SQ SCH (22:24)
[2019-10-11] MEDS: BACLOFEN 10 MG TAB PO PRN (22:25)
[2019-10-12 07:19] LABS: Glucose,Whole Blood 80 mg/dL (75-99)
[2019-10-12] MEDS: INSULIN ASPART (NovoLOG) 100 UNIT/ML VIAL SQ SCH ×4 (07:25→22:04)
[2019-10-12] MEDS: NYSTATIN 100,000 UNIT/ML SUSP 500,000 UNIT/5 ML CUP PO SCH ×4 (08:36→22:05)
[2019-10-12] MEDS: ATENOLOL 50 MG TAB PO SCH (08:36)
[2019-10-12] MEDS: GABAPENTIN 100 MG CAP PO SCH ×3 (08:36→22:04)
[2019-10-12] MEDS: PANTOPRAZOLE 40 MG TABLET PO SCH (08:36)
[2019-10-12] MEDS: CITALOPRAM HYDROBROMIDE 20 MG TAB PO SCH (08:37)
[2019-10-12 11:57] LABS: Glucose,Whole Blood 121 mg/dL (75-99)
--- NOTE | 2019-10-12 13:29 | P.PN ---
Subjective Progress Note Date: 10/12/19 This is a 58-year-old female admitted with multiple medical issues, scheduled for EGD and colonoscopy today. Hemoglobin 3.1, receiving supplements as per nephrology. Creatinine trending down, 3.95. Urine cultures reporting Klebsiella/ESBL. Preliminary blood cultures reporting no growth. Afebrile currently, T-max 99.1. Maintained on Merrem. 10/08/2019 minimal ambulation. Maintained on IV fluids. EGD on 10/04 revealed mild antral gastritis, duodenitis and mild esophagitis. Colonoscopy not perfo rmed secondary to poor prep. Rescheduled, performed over the weekend reported no active bleeding, normal-appearing colon from rectum to cecum, impaired complete visualization of the mucosa secondary to poor prep, moderate sigmoid diverticulosis, mild internal hemorrhoids, biopsies obtained. Hemoglobin 8.9, creatinine trending down to 2.81. Potassium 3.8. Maintained on IV antibiotics of Merrem and local wound care as per infectious disease. Afebrile. Normal WBC. 10/09/2019Significant clinical improvement. Patient will be discharged to subacute rehab pending results of repeat urine culture, clearance from pulmonary, nephrology, ID and authorization, in a stable condition with guarded prognosis. Recommendations regarding resuming Plavix as per GI. DC antibiotics as per infectious disease. 10/10/2019 continues to require maximum assist as per PT evaluation. Maintained on Merrem, repeat preliminary urine culture reporting enterococcus D, gram- negative bacilli. T-max 99.6. Labs pending. Good diet intake. Denies abdominal pain. Denies nausea vomiting or diarrhea. Denies chest pain, palpitations. Denies shortness of breath. 10/11/2019 T-max 99.4, WBC 11,, creatinine down to 2.6. Repeat urine cultures noted. ID recommending discontinuing Merrem on discharge. Denies chest pain, palpitations, shortness of breath. Vital signs stable. 10/12/2019 no overnight events. Afebrile. Denies lightheadedness, dizziness or focal deficits.VSS, maintaining O2 sats in the 90s on room air. Denies chest pain, palpitations or shortness of breath. Objective - Vital Signs Vital signs: Vital Signs Temp 98.9 F 10/12/19 07:00 Pulse 56 L 10/12/19 07:00 Resp 16 10/12/19 07:00 BP 103/62 10/12/19 07:00 Pulse Ox 96 10/12/19 07:00 Intake & Output 10/11/19 10/12/19 10/12/19 18:59 06:59 18:59 Output Total 1000 1100 Balance -1000 -1100 Weight 71.6 kg Output: Urine 1000 1100 Other: Voiding Method Indwelling Catheter Diaper # Voids 2 # Bowel Movements 1 - Exam GENERAL: Sitting up in bed, no acute distress. HEENT: Head is atraumatic, normocephalic. Pupils are equal, round, and reactive to light. Sclerae anicteric. Conjunctivae are clear. Mucus membranes of the mouth are moist. Neck is supple. RESPIRATORY: Clear to auscultation. No rhonchi, occasional fine crackles, no wheezes. No use of accessory muscles. CARDIOVASCULAR: Regular rate and rhythm. S1 and S2 noted. No systolic or diastolic murmur auscultated. No JVD noted. No S3 or S4 noted. GASTROINTESTINAL: No distention noted. Abdomen soft and round. Normal active bowel sounds auscultated x 4 quadrants. No pain or tenderness noted upon palpation. INTEGUMENTARY: Multiple contusions to her right knee. Dressing placed on her right foot. Left pdgtu-mut-gjve amputation stump intact with known multiple bruising on the left knee. EXTREMITIES: Left xrmol-rsx-bqpf amputation. Ulcerations on right foot currently under wound care by Dr. Hunt at [facility]. New marie sized blister right inner medial foot,dry NEUROLOGIC: Cranial nerves II-XII intact. PSYCHIATRIC: Awake, alert, and oriented X 2. Appropriate affect. Microbiology 10/01/19 17:07 Urine,Catheterized Urine Culture - Preliminary Klebsiella pneumoniae 10/07/19 06:00 Urine,Voided Urine Culture - Final Klebsiella pneumoniae Enterococcus faecium 10/01/19 18:31 Blood Blood Culture - Final No Growth after 144 hours - Labs CBC & Chem 7: 10/11/19 07:50 10/11/19 07:50 Labs: Abnormal Lab Results - Last 24 Hours (Table) 10/11/19 10/11/19 10/12/19 Range/Units 16:22 20:52 11:56 POC Glucose (mg/dL) 124 H 177 H 121 H (75-99) mg/dL Microbiology - Last 24 Hours (Table) 10/01/19 17:07 Urine Culture - Preliminary Urine,Catheterized Klebsiella pneumoniae Assessment and Plan Assessment: (1) Sepsis secondary to acute UTI with Klebsiella ESBL, repeat urine culture positive, ID following. Suspect cystitis Current Visit: Yes Status: Acute Code(s): A41.9 - SEPSIS, UNSPECIFIED ORGANISM SNOMED Code(s): 94346969 Current Visit: Yes Status: Acute Code(s): N39.0 - URINARY TRACT INFECTION, SITE NOT SPECIFIED SNOMED Code(s): 06031448 (2) Acute kidney injury superimposed on chronic kidney disease stage III, possibly acute tubular necrosis with prerenal factors, present on admission. Current Visit: Yes Status: Acute Code(s): N17.9 - ACUTE KIDNEY FAILURE, UNSPECIFIED; N18.9 - CHRONIC KIDNEY DISEASE, UNSPECIFIED SNOMED Code(s): 70648745 (3) GI bleed with Anemia, acute blood loss, status post 4 units packed RBCs transfused.Status post EGD reporting mild antral gastritis, duodenitis and esophagitis. Colonoscopy reporting no active bleeding, black or pathology to explain anemia. Impaired visualization, mucosa secondary to poor prep. Moderate sigmoid diverticulosis. Mild internal hemorrhoids. Biopsies obtained Current Visit: Yes Status: Acute Code(s): D64.9 - ANEMIA, UNSPECIFIED SNOMED Code(s): 776721800 Current Visit: Yes Status: Acute Code(s): K92.2 - GASTROINTESTINAL HEMORRHAGE, UNSPECIFIED SNOMED Code(s): 89095412 (4) Dehydration Current Visit: Yes Status: Acute Code(s): E86.0 - DEHYDRATION SNOMED Code(s): 65687884 (6) Hyperkalemia Current Visit: Yes Status: Acute Code(s): E87.5 - HYPERKALEMIA SNOMED Code(s): 98901684 (7) Diabetic ulcer with necrotic changes, possibly pressure related of right foot associated with diabetes mellitus due to underlying condition Current Visit: Yes Status: Acute Code(s): E08.621 - DIABETES MELLITUS DUE TO UNDERLYING CONDITION W FOOT ULCER; L97.519 - NON-PRS CHRONIC ULCER OTH PRT RIGHT FOOT W UNSP SEVERITY SNOMED Code(s): 312797241 (8) hypokalemia (9) Cerebrovascular accident Current Visit: No Status: Acute Code(s): I63.9 - CEREBRAL INFARCTION, UNSPECIFIED SNOMED Code(s): 836802950 (10) Diabetes mellitus type 2, uncontrolled, with complications Current Visit: No Status: Acute Code(s): E11.8 - TYPE 2 DIABETES MELLITUS WITH UNSPECIFIED COMPLICATIONS; E11.65 - TYPE 2 DIABETES MELLITUS WITH HYPERGLYCEMIA SNOMED Code(s): 54529524 (11) Peripheral artery disease Current Visit: No Status: Acute Code(s): I73.9 - PERIPHERAL VASCULAR DISEASE, UNSPECIFIED SNOMED Code(s): 651735860 (12) Smoker Current Visit: No Status: Acute Code(s): F17.200 - NICOTINE DEPENDENCE, UNSPECIFIED, UNCOMPLICATED SNOMED Code(s): 82379901 (13) Dyslipidemia Current Visit: No Status: Chronic Code(s): E78.5 - HYPERLIPIDEMIA, UNSPECIFIED SNOMED Code(s): 049083319 (14) Hypertension Current Visit: No Status: Chronic Code(s): I10 - ESSENTIAL (PRIMARY) HYPERTENSION SNOMED Code(s): 43474016 Plan: Continue on current medication regime , PPI, monitoring and symptomatic treatment. Maintain wound care /IV antibiotics as per ID recommendations. Continue PT/OT. Discharge planning in progress for subacute rehab.pending authorization. The impression and plan of care has been dictated as directed. : I performed a history and examination of this patient, discussed the same with the dictator. I agree with the dictator's note ,documented as a scribe. Any additional findings or plans will be noted.
--- NOTE | 2019-10-12 16:05 | PN ---
PROGRESS NOTE DATE OF SERVICE: 10/12/2019 REASON FOR FOLLOWUP: Urinary tract infection. INTERVAL HISTORY: The patient is currently afebrile. The patient has been feeling better. Breathing comfortably. Patient denies having any chest pain or shortness of breath or cough. No nausea, vomiting. No abdominal pain. Patient's Doran has been discontinued. Currently denies any difficulty urination. No burning, suprapubic pain or pain to the right foot wound area. PHYSICAL EXAMINATION: Blood pressure 133/62 with a pulse of 56, temperature of 98.9, she is 96% on room air. General description is a middle-aged female, lying in bed in no distress. RESPIRATORY SYSTEM: Unlabored breathing, clear to auscultation anteriorly. HEART: S1, S2. Regular rate and rhythm. ABDOMEN: Soft, no tenderness. Right foot is currently dressed up. LABS: No new labs have been obtained today. DIAGNOSTIC IMPRESSION AND PLAN: 1. Patient with VRE positive urine culture, possible cystitis on admission. Patient has received antibiotic therapy adequately and Doran has been discontinued. Currently no urinary symptoms, no need for further antibiotic at this point. 2. Right foot wound. Continue local wound care per Surgery. Continue supportive care. MMODL / IJN: [id number] /
--- NOTE | 2019-10-12 16:14 | PN ---
PROGRESS NOTE Patient is seen for followup for acute kidney injury which was mainly prerenal associated with volume depletion. Renal function has improved significantly. Creatinine was down to 2.16 as of yesterday from 7.46 on initial admission. IV fluids have been discontinued, as patient was mildly volume-overloaded. She denies any chest pains or shortness of breath currently. PHYSICAL EXAMINATION: On examination today, blood pressure was 103/62, heart rate 56 per minute. She is afebrile. EXAMINATION OF THE HEART: S1 and S2. EXAMINATION OF LUNGS: Bilateral breath sounds are heard. Decreased breath sounds at bases. ABDOMEN: Soft, non-tender. Examination of lower extremities shows left BKA. The lower part of the right leg is currently wrapped. LABS: Labs show sodium 135, potassium 3.9, chloride 108, BUN 84, creatinine 2.16 from yesterday. ASSESSMENT: 1. Acute kidney injury, acute tubular necrosis, associated with severe volume depletion, currently improved. Maintain patient off of IV fluids and encourage increased oral intake. 2. Sepsis from urinary tract infection. 3. Klebsiella pneumoniae urinary tract infection. 4. History of left below-knee amputation. 5. Metabolic acidosis, resolved. 6. Acute blood loss anemia, status post esophagogastroduodenoscopy and colonoscopy with no active bleeding noted. PLAN: Continue off of IV fluids. Repeat labs in a.m. MMODL / IJN: [id number] /
[2019-10-12 17:09] LABS: Glucose,Whole Blood 119 mg/dL (75-99)
[2019-10-12 21:05] LABS: Glucose,Whole Blood 156 mg/dL (75-99)
[2019-10-12] MEDS: BACLOFEN 10 MG TAB PO PRN (22:04)
[2019-10-12] MEDS: INSULIN DETEMIR (LEVEMIR) 100 UNIT/ML SYR SQ SCH (22:05)
[2019-10-13 07:10] LABS: Glucose,Whole Blood 100 mg/dL (75-99)
[2019-10-13] MEDS: INSULIN ASPART (NovoLOG) 100 UNIT/ML VIAL SQ SCH ×4 (07:33→21:01)
[2019-10-13] MEDS: CITALOPRAM HYDROBROMIDE 20 MG TAB PO SCH (08:51)
[2019-10-13] MEDS: PANTOPRAZOLE 40 MG TABLET PO SCH (08:51)
[2019-10-13] MEDS: GABAPENTIN 100 MG CAP PO SCH ×3 (08:51→21:00)
[2019-10-13] MEDS: ATENOLOL 50 MG TAB PO SCH (08:51)
[2019-10-13] MEDS: NYSTATIN 100,000 UNIT/ML SUSP 500,000 UNIT/5 ML CUP PO SCH ×4 (08:52→21:00)
[2019-10-13 10:00] LABS: Calcium 8.2 mg/dL (8.4-10.2); Potassium 3.8 mmol/L (3.5-5.1)
[2019-10-13 10:33] LABS: Anisocytosis Slight; Basophils % (A) 0 %; Eosinophils # (A) 0.2 k/uL (0-0.7); Eosinophils % (A) 3 %; HCT 25.9 % (34.0-46.0); HGB 8.6 gm/dL (11.4-16.0); Hypochromasia Slight; Lymphocytes # (A) 1.6 k/uL (1.0-4.8); Lymphocytes % (A) 19 %; MCH 30.2 pg (25.0-35.0); MCHC 33.1 g/dL (31.0-37.0); MCV 91.1 fL (80.0-100.0); Mean Platelet Volume 11.4; Monocytes # (A) 0.6 k/uL (0-1.0); Monocytes % (A) 7 %; Neutrophils % (A) 70 %; Platelet Count 210 k/uL (150-450); RBC 2.84 m/uL (3.80-5.40); RDW 16.3 % (11.5-15.5); WBC 8.6 k/uL (3.8-10.6)
[2019-10-13 11:30] LABS: Glucose,Whole Blood 136 mg/dL (75-99)
--- NOTE | 2019-10-13 12:15 | P.PN ---
Subjective Progress Note Date: 10/13/19 Principal diagnosis: This is a 58-year-old female who is seen because of acute kidney injury nausea to hypotension and blood loss with the admission creatinine 7.46, has significan tly improved. She denies any complaints no nausea vomiting diarrhea abdominal pain he is on room air and no shortness of breath. Appetite is good. She is known with insulin-dependent diabetes pulmonary hypertension, Klebsiella and avoid GI urine tract infection. She was taken off of IV fluids and her creatinine continues to remain stable . Objective - Vital Signs Vital signs: Vital Signs Temp 98.4 F 10/13/19 07:00 Pulse 52 L 10/13/19 07:00 Resp 15 10/13/19 07:00 BP 108/61 10/13/19 07:00 Pulse Ox 97 10/13/19 07:00 Intake & Output 10/12/19 10/13/19 10/13/19 18:59 06:59 18:59 Weight 71.6 kg Other: Voiding Method Diaper Diaper # Voids 3 3 On examination awake alert oriented comfortable HEENT exam no JVP neck is supple no facial asymmetry Lungs are clear to auscultation good air entry bilaterally Heart sounds are unremarkable no murmur rub gallop Breasts soft nontender Extremity exam was BKA on the left and right is unremarkable Neurologically awake alert oriented comfortable - Labs CBC & Chem 7: 10/13/19 09:05 10/13/19 09:05 Labs: Abnormal Lab Results - Last 24 Hours (Table) 10/12/19 10/12/19 10/13/19 Range/Units 17:05 20:57 07:07 RBC (3.80-5.40) m/uL Hgb (11.4-16.0) gm/dL Hct (34.0-46.0) % RDW (11.5-15.5) % Chloride (98-107) mmol/L BUN (7-17) mg/dL Creatinine (0.52-1.04) mg/dL Glucose (74-99) mg/dL POC Glucose (mg/dL) 119 H 156 H 100 H (75-99) mg/dL Calcium (8.4-10.2) mg/dL 10/13/19 10/13/19 10/13/19 Range/Units 09:05 09:05 11:27 RBC 2.84 L (3.80-5.40) m/uL Hgb 8.6 L (11.4-16.0) gm/dL Hct 25.9 L (34.0-46.0) % RDW 16.3 H (11.5-15.5) % Chloride 109 H (98-107) mmol/L BUN 93 H (7-17) mg/dL Creatinine 1.91 H (0.52-1.04) mg/dL Glucose 57 L (74-99) mg/dL POC Glucose (mg/dL) 136 H (75-99) mg/dL Calcium 8.2 L (8.4-10.2) mg/dL Assessment and Plan Assessment: Impression 1. Acute kidney injury secondary to 1 depletion and anemia with possible blood loss. Improved with creatinine coming down from 7.7, to 1.9. 2. Baseline creatinine is 0.9 as of 08/09/19. Ultrasound on this admission right kidney 11.4 and left 10.6 cm 3. Anemia with hemoglobin 8.6 stable 4. Klebsiella pneumonia UTI Recommendation We will changes in medication. To be discharged from a nephrological perspective creatinine is expected to improve
[2019-10-13 16:42] LABS: Glucose,Whole Blood 182 mg/dL (75-99)
[2019-10-13 20:11] LABS: Glucose,Whole Blood 147 mg/dL (75-99)
--- NOTE | 2019-10-13 20:50 | PN ---
PROGRESS NOTE DATE OF SERVICE: 10/13/2019 This 58-year-old woman who was admitted with sepsis secondary to UTI with Klebsiella pneumonia and as Enterobacter faecium is closely monitored. ECF rehab is being contemplated. ESBL Klebsiella was noted. The patient will be closely monitored at this time. Lab-strong, hemoglobin is 8.6 and creatinine is 1.91, which is much improved from the baseline at this time. PAST MEDICAL HISTORY: Reviewed. REVIEW OF SYSTEMS: CARDIOVASCULAR SYSTEM: No angina. RESPIRATORY: As mentioned earlier. GI: As mentioned earlier. : No dysuria or hematuria. NERVOUS SYSTEM: No numbness or weakness. CURRENT MEDICATIONS: 1. Tylenol p.r.n. 2. Tenormin 50 mg daily. 3. Iron sulfate. 4. Celexa. 5. Neurontin. 6. Levemir. 7. Morphine. 8. Narcan. 9. Mycostatin. 10.Zofran. 11.Protonix. PHYSICAL EXAM: Patient is alert, oriented x2. Pulse is 60, blood pressure 100/56, respirations 16, temperature 98.7, pulse ox 98% on room air. HEENT: Conjunctivae normal. Oral mucosa moist. NECK: No jugular venous distention. No lymph node enlargement. CARDIOVASCULAR: S1, S2. RESPIRATORY: Diminished breath sounds at the bases. A few scattered rhonchi and crackles. ABDOMEN: Soft, nontender. LEGS: No edema, no swelling. NERVOUS SYSTEM: Diffusely weak. LABS: WBC 8.2, hemoglobin is 8.6, sodium 137, potassium 3.8, creatinine is 1.91. ASSESSMENT: 1. Acute urinary tract infection with ESBL Klebsiella and severe sepsis, hypotension, shock, septic shock, present on admission. 2. Acute renal failure with possible acute tubular necrosis with prerenal factors, present on admission, improving. 3. Possible chronic kidney disease, stage 3, baseline. 4. Significant right foot ulceration as well as necrotic changes, possibly pressure ulcer grade 2-3. 5. Acute rhabdomyolysis, present on admission. 6. Possible gastrointestinal bleed status post 4 units transfusion. EGD reported mild antral gastritis, duodenitis and esophagitis. Colonoscopy showing no active bleeding. 7. Increased WBC secondary to sepsis. 8. Severe hyperkalemia secondary to renal failure. 9. Change in mental status acute metabolic encephalopathy. 10.Diabetes mellitus type 2. 11.Hypertension. 12.Hyperlipidemia. 13.History of degenerative joint disease. 14.History of chronic gout. 15.History of carpal tunnel syndrome. 16.History of transient ischemic attach. 17.History of hysterectomy. 18.History of depression. 19.History of anxiety. 20.FULL CODE. RECOMMENDATIONS AND DISCUSSION: In this 58-year-old woman who presented with multiple complex medical issues, we will monitor the patient closely, continue the current management, continue symptomatic treatment, repeat labs. Otherwise, PT/OT evaluation, possible ECF rehab and medications reviewed. Monitor blood sugars closely. Avoid nephrotoxic medications. Closely follow with multiple consultants. Further recommendations to follow. MMODL / IJN: [id number] /
[2019-10-13] MEDS: INSULIN DETEMIR (LEVEMIR) 100 UNIT/ML SYR SQ SCH (21:01)
[2019-10-13] MEDS: BACLOFEN 10 MG TAB PO PRN (21:01)
--- NOTE | 2019-10-14 00:20 | PN ---
PROGRESS NOTE DATE OF SERVICE: 10/13/2019 REASON FOR FOLLOWUP: 1. VRE urinary tract infection. 2. Right foot wound. INTERVAL HISTORY: The patient is currently afebrile. The patient is breathing comfortably. Denies having any chest pain or shortness of breath or cough. No nausea or abdominal pain, pain to the right foot wound area. PHYSICAL EXAMINATION: Blood pressure 145/67 with a pulse of 53, temperature 98.8. She is 99% on room air. General description is a middle-aged female lying in bed in no distress. Respiratory system: Unlabored breathing, clear to auscultation anteriorly. Heart S1, S2. Regular rate and rhythm. ABDOMEN: Soft. No tenderness. Right foot lateral border wound still has open bleeding superficial ulceration. Right heel wound with minimal slough tissue. LABS: Hemoglobin 8.8, white count 8.6, creatinine 1.91. DIAGNOSTIC IMPRESSION AND PLAN: 1. Patient with VRE positive urine culture, possible cystitis. Cultures on admission. Patient has completed her antibiotic therapy, currently being monitored off antibiotic and do not have any urinary symptoms. Continue with . 2. The patient with right foot lateral border wound. Local care with Aquacel dressing with wound care to the right hand with Medihoney. Keep the area dry and off the pressure. MMODL / IJN: [id number] /
[2019-10-14 07:00] LABS: Glucose,Whole Blood 83 mg/dL (75-99)
[2019-10-14 07:54] LABS: Basophils % (A) 0 %; Eosinophils # (A) 0.2 k/uL (0-0.7); Eosinophils % (A) 3 %; HCT 26.3 % (34.0-46.0); HGB 8.4 gm/dL (11.4-16.0); Lymphocytes # (A) 1.4 k/uL (1.0-4.8); Lymphocytes % (A) 15 %; MCH 28.5 pg (25.0-35.0); MCHC 32.1 g/dL (31.0-37.0); MCV 88.8 fL (80.0-100.0); Mean Platelet Volume 10.2; Monocytes # (A) 0.7 k/uL (0-1.0); Monocytes % (A) 7 %; Neutrophils # (A) 6.9 k/uL (1.3-7.7); Neutrophils % (A) 74 %; Platelet Count 232 k/uL (150-450); RBC 2.96 m/uL (3.80-5.40); RDW 15.9 % (11.5-15.5); WBC 9.4 k/uL (3.8-10.6)
[2019-10-14] MEDS: INSULIN ASPART (NovoLOG) 100 UNIT/ML VIAL SQ SCH ×4 (08:04→21:42)
[2019-10-14 08:07] LABS: Calcium 8.1 mg/dL (8.4-10.2); Potassium 3.7 mmol/L (3.5-5.1)
[2019-10-14] MEDS: PANTOPRAZOLE 40 MG TABLET PO SCH (08:10)
[2019-10-14] MEDS: ATENOLOL 50 MG TAB PO SCH (08:10)
[2019-10-14] MEDS: CITALOPRAM HYDROBROMIDE 20 MG TAB PO SCH (08:10)
[2019-10-14] MEDS: GABAPENTIN 100 MG CAP PO SCH ×3 (08:11→21:36)
[2019-10-14] MEDS: NYSTATIN 100,000 UNIT/ML SUSP 500,000 UNIT/5 ML CUP PO SCH ×4 (08:12→21:37)
[2019-10-14] MEDS ORDERED: ACETAMINOPHEN TAB 325 MG TAB PO PRN (08:18)
[2019-10-14 10:01] LABS: Glucose,Whole Blood 147 mg/dL (75-99)
--- NOTE | 2019-10-14 11:03 | P.PN ---
Subjective Progress Note Date: 10/14/19 Principal diagnosis: This is a 58-year-old female who is seen because of acute kidney injury nausea to hypotension and blood loss with the admission creatinine 7.46, has significan tly improved. She denies any complaints no nausea vomiting diarrhea abdominal pain he is on room air and no shortness of breath. Appetite is good. Other than this generalized weakness she is feeling fairly well. Good appetite she is eating well She is known with insulin-dependent diabetes pulmonary hypertension, Klebsiella urine tract infection. She was taken off of IV fluids and her creatinine continues to remain stable. Her ultrasound shows 11.4 and 10.6 right and left kidney no hydronephrosis no stones. . Objective - Vital Signs Vital signs: Vital Signs Temp 98.5 F 10/14/19 07:00 Pulse 58 L 10/14/19 07:00 Resp 16 10/14/19 07:00 BP 122/66 10/14/19 07:00 Pulse Ox 96 10/14/19 07:00 Intake & Output 10/13/19 10/14/19 10/14/19 18:59 06:59 18:59 Output Total 1100 2150 Balance -1100 -2150 Output: Urine 1100 2150 Other: Voiding Method Diaper Diaper On examination awake alert oriented HEENT exam no JVP neck is supple no facial asymmetry Lungs clear to auscultation good air entry bilaterally Heart sounds are unremarkable for any murmur rub gallop Abdomen is soft nontender Extremity examination remote left BKA right has minimal edema Neurologically awake alert oriented cheerful but profoundly weak - Labs CBC & Chem 7: 10/14/19 07:39 10/14/19 07:39 Labs: Abnormal Lab Results - Last 24 Hours (Table) 10/13/19 10/13/19 10/13/19 Range/Units 11:27 16:39 20:09 RBC (3.80-5.40) m/uL Hgb (11.4-16.0) gm/dL Hct (34.0-46.0) % RDW (11.5-15.5) % Chloride (98-107) mmol/L BUN (7-17) mg/dL Creatinine (0.52-1.04) mg/dL Glucose (74-99) mg/dL POC Glucose (mg/dL) 136 H 182 H 147 H (75-99) mg/dL Calcium (8.4-10.2) mg/dL 10/14/19 10/14/19 10/14/19 Range/Units 07:39 07:39 10:00 RBC 2.96 L (3.80-5.40) m/uL Hgb 8.4 L (11.4-16.0) gm/dL Hct 26.3 L (34.0-46.0) % RDW 15.9 H (11.5-15.5) % Chloride 108 H (98-107) mmol/L BUN 98 H (7-17) mg/dL Creatinine 1.90 H (0.52-1.04) mg/dL Glucose 55 L (74-99) mg/dL POC Glucose (mg/dL) 147 H (75-99) mg/dL Calcium 8.1 L (8.4-10.2) mg/dL Assessment and Plan Assessment: Impression 1. Acute kidney injury secondary to 1 depletion and anemia with possible blood loss. Improved with creatinine coming down from 7.7, to 1.9. And has been stable for 2 days now but not back to baseline 2. Baseline creatinine is 0.9 as of 08/09/19. Ultrasound on this admission right kidney 11.4 and left 10.6 cm 3. Anemia with hemoglobin 8.6 stable 4. Klebsiella pneumonia UTI. 5. Remote left BKA. 6. Trace edema Recommendation Continue to monitor labs. Continue to monitor I's and os Check postvoid residual. No changes in medication. Okay To be discharged from a nephrological perspective creatinine is expected to improve
[2019-10-14 11:28] LABS: Glucose,Whole Blood 182 mg/dL (75-99)
[2019-10-14] MEDS ORDERED: traMADol 50 MG TAB PO SCH (16:00)
[2019-10-14 16:41] LABS: Glucose,Whole Blood 114 mg/dL (75-99)
[2019-10-14] MEDS: traMADol 50 MG TAB PO PRN ×2 (16:45→21:37)
[2019-10-14 20:48] LABS: Glucose,Whole Blood 111 mg/dL (75-99)
[2019-10-14] MEDS: CLOPIDOGREL 75 MG TAB PO SCH (21:36)
[2019-10-14] MEDS: INSULIN DETEMIR (LEVEMIR) 100 UNIT/ML SYR SQ SCH (21:36)
[2019-10-14] MEDS: BACLOFEN 10 MG TAB PO PRN (21:37)
--- NOTE | 2019-10-15 01:38 | PN ---
PROGRESS NOTE DATE OF SERVICE: 10/13/2008 I am covering for Dr. Armijo. This 58-year-old woman was admitted with acute UTI and renal failure multiple other medical problems is being closely monitored. No chest pain or palpitations. No fever. ECF rehab is being planned. PHYSICAL EXAMINATION: On exam, alert and oriented x3. Pulse is 51, blood pressure 125/72, respirations 16, temperature 98 degrees, pulse ox 98% on room air. HEENT: Conjunctivae normal. Oral mucosa moist. NECK: No jugular venous distention. No carotid bruit. No lymph node enlargement. CARDIOVASCULAR: S1, S2 muffled. RESPIRATORY: Breath sounds diminished at the bases. ABDOMEN: Soft, nontender. NERVOUS SYSTEM: No focal deficits. LABS: Hemoglobin 8.4, creatinine is 1.90. ASSESSMENT: 1. Acute urinary tract infection with ESBL Klebsiella with severe sepsis, hypotension, septic shock, present on admission. 2. Acute renal failure with possible acute tubular necrosis with prerenal factors, present on admission, improving. 3. Possible chronic kidney disease stage 3 baseline. 4. Significant right foot ulceration as well as a necrotic changes possible pressure ulcer, grade 2 to 3. 5. Acute rhabdomyolysis, present on admission. 6. Possible gastrointestinal bleed, status post 4 units of transfusion. EGD reported mild antral gastritis, duodenitis, esophagitis. Colonoscopy showing no active bleeding. 7. Increased WBC secondary to sepsis. 8. Severe hyperkalemia secondary to renal failure, present on admission. 9. Change in mental status acute metabolic encephalopathy. 10.Diabetes mellitus type 2. 11.Hypertension. 12.Hyperlipidemia. 13.History of degenerative joint disease. 14.History of chronic gout. 15.History of carpal tunnel syndrome. 16.History of transient ischemic attack. 17.History of hysterectomy. 18.History of depression. 19.History of anxiety. 20.FULL CODE. RECOMMENDATIONS AND DISCUSSION: Recommend to continue current medications, continue with monitoring and symptomatic treatment. Otherwise, at this time I recommend continue with antibiotics. Otherwise closely follow with Dr. Armijo and PT/OT evaluation, possible ECF rehab. Further recommendations to follow. MMODL / IJN: [id number] /
--- NOTE | 2019-10-15 04:20 | PN ---
PROGRESS NOTE DATE OF SERVICE: 10/14/2019 REASON FOR FOLLOWUP: 1. VRE urinary tract infection. 2. Right foot wound. INTERVAL HISTORY: The patient is currently afebrile. The patient is breathing comfortably. Denies having any chest pain or shortness of breath or cough. No abdominal pain or any symptoms of pain to the right foot wound area. PHYSICAL EXAMINATION: Blood pressure 153/66 with the pulse of 53, temperature of 99. She is 98% on room air. General description is a middle-aged female lying in bed in no distress. RESPIRATORY SYSTEM: Unlabored breathing, clear to auscultation anteriorly. HEART: S1, S2. Regular rate and rhythm. ABDOMEN: Soft, no tenderness. Right foot is currently dressed up. No obvious drainage on the dressing. LABS: Hemoglobin 8.4, white count 9.4, BUN of 98, creatinine 1.90. DIAGNOSTIC IMPRESSION AND PLAN: 1. Patient with VRE urinary tract infection, adequately treated, currently managed off antibiotic with no urinary symptoms. Doran has been discontinued. 2. The patient with right foot wound. Continue local wound care as ordered. Keep the area off the pressure. MMODL / IJN: [id number] /
[2019-10-15 06:50] LABS: Glucose,Whole Blood 86 mg/dL (75-99)
[2019-10-15] MEDS: INSULIN ASPART (NovoLOG) 100 UNIT/ML VIAL SQ SCH ×4 (07:07→20:56)
[2019-10-15 07:52] LABS: Basophils % (A) 0 %; Eosinophils # (A) 0.2 k/uL (0-0.7); Eosinophils % (A) 3 %; HCT 26.5 % (34.0-46.0); HGB 8.4 gm/dL (11.4-16.0); Hypochromasia Slight; Lymphocytes % (A) 11 %; MCH 28.3 pg (25.0-35.0); MCHC 31.5 g/dL (31.0-37.0); MCV 89.8 fL (80.0-100.0); Monocytes # (A) 0.6 k/uL (0-1.0); Monocytes % (A) 7 %; Neutrophils # (A) 6.7 k/uL (1.3-7.7); Neutrophils % (A) 78 %; Platelet Count 255 k/uL (150-450); RBC 2.95 m/uL (3.80-5.40); RDW 15.7 % (11.5-15.5); WBC 8.7 k/uL (3.8-10.6)
[2019-10-15 08:07] LABS: Calcium 8.1 mg/dL (8.4-10.2); Potassium 3.7 mmol/L (3.5-5.1)
[2019-10-15] MEDS: GABAPENTIN 100 MG CAP PO SCH ×3 (09:23→20:54)
[2019-10-15] MEDS: NYSTATIN 100,000 UNIT/ML SUSP 500,000 UNIT/5 ML CUP PO SCH ×4 (09:23→20:55)
[2019-10-15] MEDS: CITALOPRAM HYDROBROMIDE 20 MG TAB PO SCH (09:23)
[2019-10-15] MEDS: ATENOLOL 50 MG TAB PO SCH (09:24)
[2019-10-15] MEDS: PANTOPRAZOLE 40 MG TABLET PO SCH (09:24)
[2019-10-15] MEDS: traMADol 50 MG TAB PO PRN ×2 (09:27→20:55)
--- NOTE | 2019-10-15 11:08 | P.PN ---
Subjective Patient is seen in follow for acute kidney injury. Renal function stable. Oral intake is good. Good urine output. No active complaints. Vital signs are stable. General: The patient appeared well nourished and normally developed. HEENT: Head exam is unremarkable. Neck is without jugular venous distension. LUNGS: Lungs are clear to auscultation and percussion. Breath sounds decreased. HEART: Rate and Rhythm are regular. ABDOMEN: Soft, nontender. EXTREMITITES: Trace edema. Left BKA. Objective - Vital Signs Vital signs: Vital Signs Temp 99.0 F 10/15/19 09:22 Pulse 64 10/15/19 09:22 Resp 17 10/15/19 07:00 BP 132/76 10/15/19 07:00 Pulse Ox 97 10/15/19 07:00 Intake & Output 10/14/19 10/15/19 10/15/19 18:59 06:59 18:59 Output Total 1300 1400 Balance -1300 -1400 Output: Urine 1150 1400 Post Void Residual 150 Other: Voiding Method Diaper Diaper Diaper # Voids 1 # Bowel Movements 1 1 - Labs CBC & Chem 7: 10/15/19 07:25 10/15/19 07:25 Labs: Abnormal Lab Results - Last 24 Hours (Table) 10/14/19 10/14/19 10/14/19 Range/Units 11:26 16:40 20:46 RBC (3.80-5.40) m/uL Hgb (11.4-16.0) gm/dL Hct (34.0-46.0) % RDW (11.5-15.5) % BUN (7-17) mg/dL Creatinine (0.52-1.04) mg/dL Glucose (74-99) mg/dL POC Glucose (mg/dL) 182 H 114 H 111 H (75-99) mg/dL Calcium (8.4-10.2) mg/dL 10/15/19 10/15/19 Range/Units 07:25 07:25 RBC 2.95 L (3.80-5.40) m/uL Hgb 8.4 L (11.4-16.0) gm/dL Hct 26.5 L (34.0-46.0) % RDW 15.7 H (11.5-15.5) % BUN 82 H (7-17) mg/dL Creatinine 1.77 H (0.52-1.04) mg/dL Glucose 59 L (74-99) mg/dL POC Glucose (mg/dL) (75-99) mg/dL Calcium 8.1 L (8.4-10.2) mg/dL Assessment and Plan Plan: Assessment: 1. Acute kidney injury secondary to ATN secondary to hypotension and acute blood loss anemia. Creatinine 7.46 on admission and is 1.77 today. Baseline creatinine near 1. Nonoliguric. No hydronephrosis noted on kidney ultrasound. 2. Acute blood loss anemia status post blood transfusions. Iron replete. GI following. She also received IV DDAVP on admission. Underwent EGD this morning which revealed mild antral gastritis, duodenitis and esophagitis. Colonoscopy revealed diverticulosis without any acute bleeding. Hemoglobin stable. 3. Hypokalemia from poor oral intake and hypomagnesemia. Stable. 4. Metabolic acidosis secondary to acute kidney injury as well as use of metformin in the setting of impaired kidney function. Improved. 5. Insulin-dependent diabetes mellitus. 6. Moderate pulmonary hypertension. 7. Benign hypertension. Controlled. 8. UTI with urine culture positive for Klebsiella s/p antibiotics. Plan: Encourage oral intake. Avoid nephrotoxins. Awaits discharge to ECF. Follow up outpatient in 1-2 weeks.
[2019-10-15 11:39] LABS: Glucose,Whole Blood 133 mg/dL (75-99)
[2019-10-15 12:10] LABS: Hemoglobin A1C 5.7 % (4.0-6.0)
--- NOTE | 2019-10-15 13:10 | P.PN ---
Subjective Progress Note Date: 10/15/19 This is a 58-year-old female admitted with multiple medical issues, scheduled for EGD and colonoscopy today. Hemoglobin 3.1, receiving supplements as per nephrology. Creatinine trending down, 3.95. Urine cultures reporting Klebsiella/ESBL. Preliminary blood cultures reporting no growth. Afebrile currently, T-max 99.1. Maintained on Merrem. 10/08/2019 minimal ambulation. Maintained on IV fluids. EGD on 10/04 revealed mild antral gastritis, duodenitis and mild esophagitis. Colonoscopy not perfo rmed secondary to poor prep. Rescheduled, performed over the weekend reported no active bleeding, normal-appearing colon from rectum to cecum, impaired complete visualization of the mucosa secondary to poor prep, moderate sigmoid diverticulosis, mild internal hemorrhoids, biopsies obtained. Hemoglobin 8.9, creatinine trending down to 2.81. Potassium 3.8. Maintained on IV antibiotics of Merrem and local wound care as per infectious disease. Afebrile. Normal WBC. 10/09/2019Significant clinical improvement. Patient will be discharged to subacute rehab pending results of repeat urine culture, clearance from pulmonary, nephrology, ID and authorization, in a stable condition with guarded prognosis. Recommendations regarding resuming Plavix as per GI. DC antibiotics as per infectious disease. 10/10/2019 continues to require maximum assist as per PT evaluation. Maintained on Merrem, repeat preliminary urine culture reporting enterococcus D, gram- negative bacilli. T-max 99.6. Labs pending. Good diet intake. Denies abdominal pain. Denies nausea vomiting or diarrhea. Denies chest pain, palpitations. Denies shortness of breath. 10/11/2019 T-max 99.4, WBC 11,, creatinine down to 2.6. Repeat urine cultures noted. ID recommending discontinuing Merrem on discharge. Denies chest pain, palpitations, shortness of breath. Vital signs stable. 10/12/2019 no overnight events. Afebrile. Denies lightheadedness, dizziness or focal deficits.VSS, maintaining O2 sats in the 90s on room air. Denies chest pain, palpitations or shortness of breath. 10/15/2019 no overnight events, managed off of IV antibiotics /Wound Care as per infectious disease. T-max 100.3, normal WBC. Renal function improving, down to 1.77. Objective - Vital Signs Vital signs: Vital Signs Temp 99.0 F 10/15/19 09:22 Pulse 64 10/15/19 09:22 Resp 17 10/15/19 07:00 BP 132/76 10/15/19 07:00 Pulse Ox 97 10/15/19 07:00 Intake & Output 10/14/19 10/15/19 10/15/19 18:59 06:59 18:59 Output Total 1300 1400 Balance -1300 -1400 Output: Urine 1150 1400 Post Void Residual 150 Other: Voiding Method Diaper Diaper Diaper # Voids 1 # Bowel Movements 1 1 - Exam GENERAL: Sitting up in bed, no acute distress. HEENT: Head is atraumatic, normocephalic. Pupils are equal, round, and reactive to light. Sclerae anicteric. Conjunctivae are clear. Mucus membranes of the mouth are moist. Neck is supple. RESPIRATORY: Clear to auscultation. No rhonchi, occasional fine crackles, no wheezes. No use of accessory muscles. CARDIOVASCULAR: Regular rate and rhythm. S1 and S2 noted. No systolic or diastolic murmur auscultated. No JVD noted. No S3 or S4 noted. GASTROINTESTINAL: No distention noted. Abdomen soft and round. Normal active bowel sounds auscultated x 4 quadrants. No pain or tenderness noted upon palpation. INTEGUMENTARY: Multiple contusions to her right knee. Dressing placed on her right foot. Left [id number] amputation stump intact with known multiple bruising on the left knee. EXTREMITIES: Left [id number] amputation. Ulcerations on right foot currently under wound care by Dr. Hunt at [facility]. New marie sized blister right inner medial foot,dry NEUROLOGIC: Cranial nerves II-XII intact. PSYCHIATRIC: Awake, alert, and oriented X 2. Appropriate affect. Microbiology 10/01/19 17:07 Urine,Catheterized Urine Culture - Preliminary Klebsiella pneumoniae 10/07/19 06:00 Urine,Voided Urine Culture - Final Klebsiella pneumoniae Enterococcus faecium 10/01/19 18:31 Blood Blood Culture - Final No Growth after 144 hours - Labs CBC & Chem 7: 10/15/19 07:25 10/15/19 07:25 Labs: Abnormal Lab Results - Last 24 Hours (Table) 10/14/19 10/14/19 10/15/19 Range/Units 16:40 20:46 07:25 RBC 2.95 L (3.80-5.40) m/uL Hgb 8.4 L (11.4-16.0) gm/dL Hct 26.5 L (34.0-46.0) % RDW 15.7 H (11.5-15.5) % BUN (7-17) mg/dL Creatinine (0.52-1.04) mg/dL Glucose (74-99) mg/dL POC Glucose (mg/dL) 114 H 111 H (75-99) mg/dL Calcium (8.4-10.2) mg/dL 10/15/19 10/15/19 Range/Units 07:25 11:38 RBC (3.80-5.40) m/uL Hgb (11.4-16.0) gm/dL Hct (34.0-46.0) % RDW (11.5-15.5) % BUN 82 H (7-17) mg/dL Creatinine 1.77 H (0.52-1.04) mg/dL Glucose 59 L (74-99) mg/dL POC Glucose (mg/dL) 133 H (75-99) mg/dL Calcium 8.1 L (8.4-10.2) mg/dL Assessment and Plan Assessment: (1) Sepsis secondary to acute UTI with Klebsiella ESBL, repeat urine culture positive, ID following. Suspect cystitis Current Visit: Yes Status: Acute Code(s): A41.9 - SEPSIS, UNSPECIFIED ORGANISM SNOMED Code(s): 45542364 Current Visit: Yes Status: Acute Code(s): N39.0 - URINARY TRACT INFECTION, SITE NOT SPECIFIED SNOMED Code(s): 10126328 (2) Acute kidney injury superimposed on chronic kidney disease stage III, possibly acute tubular necrosis with prerenal factors, present on admission. Current Visit: Yes Status: Acute Code(s): N17.9 - ACUTE KIDNEY FAILURE, UNSPECIFIED; N18.9 - CHRONIC KIDNEY DISEASE, UNSPECIFIED SNOMED Code(s): 17055472 (3) GI bleed with Anemia, acute blood loss, status post 4 units packed RBCs transfused.Status post EGD reporting mild antral gastritis, duodenitis and esophagitis. Colonoscopy reporting no active bleeding, black or pathology to explain anemia. Impaired visualization, mucosa secondary to poor prep. Moderate sigmoid diverticulosis. Mild internal hemorrhoids. Biopsies obtained Current Visit: Yes Status: Acute Code(s): D64.9 - ANEMIA, UNSPECIFIED SNOMED Code(s): 072500263 Current Visit: Yes Status: Acute Code(s): K92.2 - GASTROINTESTINAL HEMORRHAGE, UNSPECIFIED SNOMED Code(s): 84091124 (4) Dehydration Current Visit: Yes Status: Acute Code(s): E86.0 - DEHYDRATION SNOMED Code(s): 09584848 (6) Hyperkalemia Current Visit: Yes Status: Acute Code(s): E87.5 - HYPERKALEMIA SNOMED Code(s): 21308224 (7) Diabetic ulcer with necrotic changes, possibly pressure related of right foot associated with diabetes mellitus due to underlying condition Current Visit: Yes Status: Acute Code(s): E08.621 - DIABETES MELLITUS DUE TO UNDERLYING CONDITION W FOOT ULCER; L97.519 - NON-PRS CHRONIC ULCER OTH PRT RIGHT FOOT W UNSP SEVERITY SNOMED Code(s): 021681212 (8) hypokalemia (9) Cerebrovascular accident Current Visit: No Status: Acute Code(s): I63.9 - CEREBRAL INFARCTION, UNSPECIFIED SNOMED Code(s): 883615659 (10) Diabetes mellitus type 2, uncontrolled, with complications Current Visit: No Status: Acute Code(s): E11.8 - TYPE 2 DIABETES MELLITUS WITH UNSPECIFIED COMPLICATIONS; E11.65 - TYPE 2 DIABETES MELLITUS WITH HYPERGLYCEMIA SNOMED Code(s): 24129274 (11) Peripheral artery disease Current Visit: No Status: Acute Code(s): I73.9 - PERIPHERAL VASCULAR DISEASE, UNSPECIFIED SNOMED Code(s): 558104992 (12) Smoker Current Visit: No Status: Acute Code(s): F17.200 - NICOTINE DEPENDENCE, UNSPECIFIED, UNCOMPLICATED SNOMED Code(s): 03974918 (13) Dyslipidemia Current Visit: No Status: Chronic Code(s): E78.5 - HYPERLIPIDEMIA, UNSPECIFIED SNOMED Code(s): 404453510 (14) Hypertension Current Visit: No Status: Chronic Code(s): I10 - ESSENTIAL (PRIMARY) HYPERTENSION SNOMED Code(s): 87915689 Plan: Continue on current medication regime , PPI, monitoring and symptomatic treatment. Maintain wound care as per ID recommendations. Continue PT/OT. Discharge planning in progress for subacute rehab.pending authorization. The impression and plan of care has been dictated as directed. : I performed a history and examination of this patient, discussed the same with the dictator. I agree with the dictator's note ,documented as a scribe. Any additional findings or plans will be noted.
[2019-10-15 16:35] LABS: Glucose,Whole Blood 156 mg/dL (75-99)
[2019-10-15 20:37] LABS: Glucose,Whole Blood 175 mg/dL (75-99)
[2019-10-15] MEDS: CLOPIDOGREL 75 MG TAB PO SCH (20:53)
[2019-10-15] MEDS: INSULIN DETEMIR (LEVEMIR) 100 UNIT/ML SYR SQ SCH (20:55)
[2019-10-15] MEDS: BACLOFEN 10 MG TAB PO PRN (21:58)
--- NOTE | 2019-10-16 03:18 | PN ---
PROGRESS NOTE DATE OF SERVICE: 10/15/2019 REASON FOR FOLLOWUP: 1. Positive urine culture. 2. Right foot wound. INTERVAL HISTORY: The patient is currently afebrile. Patient is breathing comfortably. Denies having any chest pain. No shortness of breath or cough. No abdominal pain. Pain to the right foot area. PHYSICAL EXAMINATION: Blood pressure 120/78 with a pulse of 54, temperature of 98.8. She is 97% on room air. General description is a middle-aged female lying in bed in no distress. RESPIRATORY SYSTEM: Unlabored breathing,. Clear to auscultation anteriorly. HEART: S1, S2. Regular rate and rhythm. ABDOMEN: Soft. No tenderness. Right foot is currently dressed up. No obvious drainage on the dressing. LABS: Hemoglobin 8.4, white count 8.7, BUN of 82, creatinine 1.77. DIAGNOSTIC IMPRESSION AND PLAN: 1. Patient with a positive urine culture with CRE possible cystitis versus Doran colonization adequately treated currently with no symptoms. No need for further systemic antibiotic therapy. 2. Right foot lateral border and right heel wound. Local wound care to continue with Medihoney and Aquacel silver dressing and keep the area off the pressure and continue supportive care. MMODL / IJN: [id number] /
[2019-10-16 06:52] LABS: Glucose,Whole Blood 90 mg/dL (75-99)
[2019-10-16 08:02] VITALS: BP 150/75; PULSE 50; RESP 16; TEMP 98.5
[2019-10-16 08:33] LABS: Basophils % (A) 1 %; Eosinophils # (A) 0.2 k/uL (0-0.7); Eosinophils % (A) 3 %; HCT 27.3 % (34.0-46.0); HGB 8.5 gm/dL (11.4-16.0); Hypochromasia Slight; Lymphocytes # (A) 1.5 k/uL (1.0-4.8); Lymphocytes % (A) 19 %; MCH 28.3 pg (25.0-35.0); MCHC 31.2 g/dL (31.0-37.0); MCV 90.5 fL (80.0-100.0); Mean Platelet Volume 9.7; Monocytes # (A) 0.5 k/uL (0-1.0); Monocytes % (A) 6 %; Neutrophils # (A) 5.4 k/uL (1.3-7.7); Neutrophils % (A) 70 %; Platelet Count 279 k/uL (150-450); RBC 3.02 m/uL (3.80-5.40); RDW 15.9 % (11.5-15.5); WBC 7.8 k/uL (3.8-10.6)
[2019-10-16] MEDS: INSULIN ASPART (NovoLOG) 100 UNIT/ML VIAL SQ SCH ×2 (08:36→12:52)
[2019-10-16 08:49] LABS: Calcium 8.5 mg/dL (8.4-10.2); Potassium 3.5 mmol/L (3.5-5.1)
[2019-10-16] MEDS: PANTOPRAZOLE 40 MG TABLET PO SCH (09:17)
[2019-10-16] MEDS: GABAPENTIN 100 MG CAP PO SCH (09:17)
[2019-10-16] MEDS: ATENOLOL 50 MG TAB PO SCH (09:17)
[2019-10-16] MEDS: CITALOPRAM HYDROBROMIDE 20 MG TAB PO SCH (09:17)
[2019-10-16] MEDS: traMADol 50 MG TAB PO PRN (09:17)
[2019-10-16] MEDS ORDERED: POTASSIUM CHLORIDE ER 20 MEQ TAB.ER PO STA ×2 (10:01→11:07)
--- NOTE | 2019-10-16 10:04 | P.PN ---
Subjective Progress Note Date: 10/16/19 This is a 58-year-old female admitted with multiple medical issues, scheduled for EGD and colonoscopy today. Hemoglobin 3.1, receiving supplements as per nephrology. Creatinine trending down, 3.95. Urine cultures reporting Klebsiella/ESBL. Preliminary blood cultures reporting no growth. Afebrile currently, T-max 99.1. Maintained on Merrem. 10/08/2019 minimal ambulation. Maintained on IV fluids. EGD on 10/04 revealed mild antral gastritis, duodenitis and mild esophagitis. Colonoscopy not perfo rmed secondary to poor prep. Rescheduled, performed over the weekend reported no active bleeding, normal-appearing colon from rectum to cecum, impaired complete visualization of the mucosa secondary to poor prep, moderate sigmoid diverticulosis, mild internal hemorrhoids, biopsies obtained. Hemoglobin 8.9, creatinine trending down to 2.81. Potassium 3.8. Maintained on IV antibiotics of Merrem and local wound care as per infectious disease. Afebrile. Normal WBC. 10/09/2019Significant clinical improvement. Patient will be discharged to subacute rehab pending results of repeat urine culture, clearance from pulmonary, nephrology, ID and authorization, in a stable condition with guarded prognosis. Recommendations regarding resuming Plavix as per GI. DC antibiotics as per infectious disease. 10/10/2019 continues to require maximum assist as per PT evaluation. Maintained on Merrem, repeat preliminary urine culture reporting enterococcus D, gram- negative bacilli. T-max 99.6. Labs pending. Good diet intake. Denies abdominal pain. Denies nausea vomiting or diarrhea. Denies chest pain, palpitations. Denies shortness of breath. 10/11/2019 T-max 99.4, WBC 11,, creatinine down to 2.6. Repeat urine cultures noted. ID recommending discontinuing Merrem on discharge. Denies chest pain, palpitations, shortness of breath. Vital signs stable. 10/12/2019 no overnight events. Afebrile. Denies lightheadedness, dizziness or focal deficits.VSS, maintaining O2 sats in the 90s on room air. Denies chest pain, palpitations or shortness of breath. 10/15/2019 no overnight events, managed off of IV antibiotics /Wound Care as per infectious disease. T-max 100.3, normal WBC. Renal function improving, down to 1.77. 10/16/2019 wound care as per infectious disease. Afebrile. Hemoglobin 8.5, creatinine 1.83. Denies chest pain, palpitations or shortness of breath. Objective - Vital Signs Vital signs: Vital Signs Temp 98.5 F 10/16/19 07:00 Pulse 50 L 10/16/19 07:00 Resp 16 10/16/19 07:00 BP 150/75 10/16/19 07:00 Pulse Ox 98 10/16/19 07:00 Intake & Output 10/15/19 10/16/19 10/16/19 18:59 06:59 18:59 Intake Total 500 Output Total 900 1400 1400 Balance -900 -900 -1400 Intake: Oral 500 Output: Urine 900 1400 1400 Other: Voiding Method Diaper # Voids 3 # Bowel Movements 1 - Exam GENERAL: Sitting up in bed, no acute distress. HEENT: Head is atraumatic, normocephalic. Pupils are equal, round, and reactive to light. Sclerae anicteric. Conjunctivae are clear. Mucus membranes of the mouth are moist. Neck is supple. RESPIRATORY: Clear to auscultation. No rhonchi, occasional fine crackles, no wheezes. No use of accessory muscles. CARDIOVASCULAR: Regular rate and rhythm. S1 and S2 noted. No systolic or diastolic murmur auscultated. No JVD noted. No S3 or S4 noted. GASTROINTESTINAL: No distention noted. Abdomen soft and round. Normal active bowel sounds auscultated x 4 quadrants. No pain or tenderness noted upon palpation. INTEGUMENTARY: Multiple contusions to her right knee. Dressing placed on her right foot. Left [id number] amputation stump intact with known multiple bruising on the left knee. EXTREMITIES: Left [id number] amputation. Ulcerations on right foot currently under wound care by Dr. Hunt at [facility]. New marie sized blister right inner medial foot,dry NEUROLOGIC: Cranial nerves II-XII intact. PSYCHIATRIC: Awake, alert, and oriented X 2. Appropriate affect. Microbiology 10/01/19 17:07 Urine,Catheterized Urine Culture - Final Klebsiella pneumoniae 10/07/19 06:00 Urine,Voided Urine Culture - Final Klebsiella pneumoniae Enterococcus faecium 10/01/19 18:31 Blood Blood Culture - Final No Growth after 144 hours - Labs CBC & Chem 7: 10/16/19 07:53 10/16/19 07:53 Labs: Abnormal Lab Results - Last 24 Hours (Table) 10/15/19 10/15/19 10/15/19 Range/Units 11:38 16:35 20:27 RBC (3.80-5.40) m/uL Hgb (11.4-16.0) gm/dL Hct (34.0-46.0) % RDW (11.5-15.5) % Chloride (98-107) mmol/L BUN (7-17) mg/dL Creatinine (0.52-1.04) mg/dL Glucose (74-99) mg/dL POC Glucose (mg/dL) 133 H 156 H 175 H (75-99) mg/dL 10/16/19 10/16/19 Range/Units 07:53 07:53 RBC 3.02 L (3.80-5.40) m/uL Hgb 8.5 L (11.4-16.0) gm/dL Hct 27.3 L (34.0-46.0) % RDW 15.9 H (11.5-15.5) % Chloride 108 H (98-107) mmol/L BUN 84 H (7-17) mg/dL Creatinine 1.83 H (0.52-1.04) mg/dL Glucose 73 L (74-99) mg/dL POC Glucose (mg/dL) (75-99) mg/dL Microbiology - Last 24 Hours (Table) 10/01/19 17:07 Urine Culture - Final Urine,Catheterized Klebsiella pneumoniae Assessment and Plan Assessment: (1) Sepsis secondary to acute UTI with Klebsiella ESBL, repeat urine culture positive, ID following. Suspect cystitis Current Visit: Yes Status: Acute Code(s): A41.9 - SEPSIS, UNSPECIFIED ORGANISM SNOMED Code(s): 42403528 Current Visit: Yes Status: Acute Code(s): N39.0 - URINARY TRACT INFECTION, SITE NOT SPECIFIED SNOMED Code(s): 17676381 (2) Acute kidney injury superimposed on chronic kidney disease stage III, possibly acute tubular necrosis with prerenal factors, present on admission. Current Visit: Yes Status: Acute Code(s): N17.9 - ACUTE KIDNEY FAILURE, UNSPECIFIED; N18.9 - CHRONIC KIDNEY DISEASE, UNSPECIFIED SNOMED Code(s): 53660401 (3) GI bleed with Anemia, acute blood loss, status post 4 units packed RBCs transfused.Status post EGD reporting mild antral gastritis, duodenitis and esophagitis. Colonoscopy reporting no active bleeding, black or pathology to explain anemia. Impaired visualization, mucosa secondary to poor prep. Moderate sigmoid diverticulosis. Mild internal hemorrhoids. Biopsies obtained Current Visit: Yes Status: Acute Code(s): D64.9 - ANEMIA, UNSPECIFIED SNOMED Code(s): 554807983 Current Visit: Yes Status: Acute Code(s): K92.2 - GASTROINTESTINAL HEMORRHAGE, UNSPECIFIED SNOMED Code(s): 59334985 (4) Dehydration Current Visit: Yes Status: Acute Code(s): E86.0 - DEHYDRATION SNOMED Code(s): 64982103 (6) Hyperkalemia Current Visit: Yes Status: Acute Code(s): E87.5 - HYPERKALEMIA SNOMED Code(s): 95311364 (7) Diabetic ulcer with necrotic changes, possibly pressure related of right fo ot associated with diabetes mellitus due to underlying condition Current Visit: Yes Status: Acute Code(s): E08.621 - DIABETES MELLITUS DUE TO UNDERLYING CONDITION W FOOT ULCER; L97.519 - NON-PRS CHRONIC ULCER OTH PRT RIGHT FOOT W UNSP SEVERITY SNOMED Code(s): 340754660 (8) hypokalemia (9) Cerebrovascular accident Current Visit: No Status: Acute Code(s): I63.9 - CEREBRAL INFARCTION, UNSPECIFIED SNOMED Code(s): 622315120 (10) Diabetes mellitus type 2, uncontrolled, with complications Current Visit: No Status: Acute Code(s): E11.8 - TYPE 2 DIABETES MELLITUS WITH UNSPECIFIED COMPLICATIONS; E11.65 - TYPE 2 DIABETES MELLITUS WITH HYPERGLYCEMIA SNOMED Code(s): 63830317 (11) Peripheral artery disease Current Visit: No Status: Acute Code(s): I73.9 - PERIPHERAL VASCULAR DISEASE, UNSPECIFIED SNOMED Code(s): 410077030 (12) Smoker Current Visit: No Status: Acute Code(s): F17.200 - NICOTINE DEPENDENCE, UNSPECIFIED, UNCOMPLICATED SNOMED Code(s): 50862581 (13) Dyslipidemia Current Visit: No Status: Chronic Code(s): E78.5 - HYPERLIPIDEMIA, UNSPEC IFIED SNOMED Code(s): 929729728 (14) Hypertension Current Visit: No Status: Chronic Code(s): I10 - ESSENTIAL (PRIMARY) HYPERTENSION SNOMED Code(s): 84155617 Plan: Continue on current medication regime , PPI, monitoring and symptomatic tr eatment. Continue wound care as per ID recommendations. PT/OT. Discharge planning in progress for subacute rehab.pending authorization. The impression and plan of care has been dictated as directed. : I performed a history and examination of this patient, discussed the same with the dictator. I agree with the dictator's note ,documented as a scribe. Any additional findings or plans will be noted.
[2019-10-16] MEDS: NYSTATIN 100,000 UNIT/ML SUSP 500,000 UNIT/5 ML CUP PO SCH ×2 (10:20→12:53)
--- NOTE | 2019-10-16 11:08 | P.PN ---
Subjective Patient is seen in follow for acute kidney injury. Renal function stable. Oral intake is good. Good urine output. No active complaints. Scheduled to go to ECF today. Vital signs are stable. General: The patient appeared well nourished and normally developed. HEENT: Head exam is unremarkable. Neck is without jugular venous distension. LUNGS: Lungs are clear to auscultation and percussion. Breath sounds decreased. HEART: Rate and Rhythm are regular. ABDOMEN: Soft, nontender. EXTREMITITES: Trace edema. Left BKA. Objective - Vital Signs Vital signs: Vital Signs Temp 98.5 F 10/16/19 07:00 Pulse 50 L 10/16/19 09:21 Resp 16 10/16/19 07:00 BP 150/75 10/16/19 07:00 Pulse Ox 98 10/16/19 07:00 Intake & Output 10/15/19 10/16/19 10/16/19 18:59 06:59 18:59 Intake Total 500 Output Total 900 1400 1400 Balance -900 -900 -1400 Intake: Oral 500 Output: Urine 900 1400 1400 Other: Voiding Method Diaper Diaper # Voids 3 # Bowel Movements 1 - Labs CBC & Chem 7: 10/16/19 07:53 10/16/19 07:53 Labs: Abnormal Lab Results - Last 24 Hours (Table) 10/15/19 10/15/19 10/15/19 Range/Units 11:38 16:35 20:27 RBC (3.80-5.40) m/uL Hgb (11.4-16.0) gm/dL Hct (34.0-46.0) % RDW (11.5-15.5) % Chloride (98-107) mmol/L BUN (7-17) mg/dL Creatinine (0.52-1.04) mg/dL Glucose (74-99) mg/dL POC Glucose (mg/dL) 133 H 156 H 175 H (75-99) mg/dL 10/16/19 10/16/19 Range/Units 07:53 07:53 RBC 3.02 L (3.80-5.40) m/uL Hgb 8.5 L (11.4-16.0) gm/dL Hct 27.3 L (34.0-46.0) % RDW 15.9 H (11.5-15.5) % Chloride 108 H (98-107) mmol/L BUN 84 H (7-17) mg/dL Creatinine 1.83 H (0.52-1.04) mg/dL Glucose 73 L (74-99) mg/dL POC Glucose (mg/dL) (75-99) mg/dL Microbiology - Last 24 Hours (Table) 10/01/19 17:07 Urine Culture - Final Urine,Catheterized Klebsiella pneumoniae Assessment and Plan Plan: Assessment: 1. Acute kidney injury secondary to ATN secondary to hypotension and acute blood loss anemia. Creatinine 7.46 on admission and is stable at 1.83 today. Baseline creatinine near 1. Nonoliguric. No hydronephrosis noted on kidney ultrasound. 2. Acute blood loss anemia status post blood transfusions. Iron replete. GI following. She also received IV DDAVP on admission. Underwent EGD this morning which revealed mild antral gastritis, duodenitis and esophagitis. Colonoscopy revealed diverticulosis without any acute bleeding. Hemoglobin stable. 3. Hypokalemia from poor oral intake and hypomagnesemia. Stable. 4. Metabolic acidosis secondary to acute kidney injury as well as use of metformin in the setting of impaired kidney function. Improved. 5. Insulin-dependent diabetes mellitus. 6. Moderate pulmonary hypertension. 7. Benign hypertension. Controlled. 8. UTI with urine culture positive for Klebsiella s/p antibiotics. Plan: Encourage oral intake. Avoid nephrotoxins. 40 mEq potassium supplementation today. Awaits discharge to ECF. Follow up outpatient in 1-2 weeks.
[2019-10-16] MEDS ORDERED: PROPOFOL 10 MG/ML 20 ML VIAL IV ONE (11:24)
[2019-10-16 11:54] LABS: Glucose,Whole Blood 146 mg/dL (75-99)
--- NOTE | 2019-10-16 12:33 | P.DS ---
Providers Date of admission: 10/01/19 19:38 Expected date of discharge: 10/16/19 Attending physician: Rene Armijo Consults: 10/01/19 18:46 Consult Physician Stat Consulting Provider: Jason Blackwell Consult Reason/Comments: Renal failure Do you want consulting provider notified?: Yes 10/01/19 18:47 Consult Physician Stat Consulting Provider: Gokul Tesfaye Consult Reason/Comments: ICU mgmt Do you want consulting provider notified?: Yes 10/05/19 17:28 Consult Physician Routine Consulting Provider: Kriss Quintero Consult Reason/Comments: UTI Klebsiella, ESBL Do you want consulting provider notified?: Yes 10/06/19 13:26 Consult Physician Routine Consulting Provider: Juan Hunt Consult Reason/Comments: right foot wound Do you want consulting provider notified?: Yes Primary care physician: Rene Armijo [facility] Course: Final Diagnoses: (1) Sepsis secondary to acute UTI with Klebsiella ESBL, repeat urine culture positive, ID following. Suspect cystitis Current Visit: Yes Status: Acute Code(s): A41.9 - SEPSIS, UNSPECIFIED ORGANISM SNOMED Code(s): 26210209 Current Visit: Yes Status: Acute Code(s): N39.0 - URINARY TRACT INFECTION, SITE NOT SPECIFIED SNOMED Code(s): 10170677 (2) Acute kidney injury superimposed on chronic kidney disease stage III, possibly acute tubular necrosis with prerenal factors, present on admission. Current Visit: Yes Status: Acute Code(s): N17.9 - ACUTE KIDNEY FAILURE, UNSPECIFIED; N18.9 - CHRONIC KIDNEY DISEASE, UNSPECIFIED SNOMED Code(s): 71800798 (3) GI bleed with Anemia, acute blood loss, status post 4 units packed RBCs transfused.Status post EGD reporting mild antral gastritis, duodenitis and esophagitis. Colonoscopy reporting no active bleeding, black or pathology to explain anemia. Impaired visualization, mucosa secondary to poor prep. Moderate sigmoid diverticulosis. Mild internal hemorrhoids. Biopsies obtained Current Visit: Yes Status: Acute Code(s): D64.9 - ANEMIA, UNSPECIFIED SNOMED Code(s): 807600976 Current Visit: Yes Status: Acute Code(s): K92.2 - GASTROINTESTINAL HEMORRHAGE, UNSPECIFIED SNOMED Code(s): 61938662 (4) Dehydration Current Visit: Yes Status: Acute Code(s): E86.0 - DEHYDRATION SNOMED Code(s): 65963058 (6) Hyperkalemia Current Visit: Yes Status: Acute Code(s): E87.5 - HYPERKALEMIA SNOMED Code(s): 98549230 (7) Diabetic ulcer with necrotic changes, possibly pressure related of right foot associated with diabetes mellitus due to underlying condition Current Visit: Yes Status: Acute Code(s): E08.621 - DIABETES MELLITUS DUE TO UNDERLYING CONDITION W FOOT ULCER; L97.519 - NON-PRS CHRONIC ULCER OTH PRT RIGHT FOOT W UNSP SEVERITY SNOMED Code(s): 642810330 (8) hypokalemia (9) Cerebrovascular accident Current Visit: No Status: Acute Code(s): I63.9 - CEREBRAL INFARCTION, UNSPECIFIED SNOMED Code(s): 013075217 (10) Diabetes mellitus type 2, uncontrolled, with complications Current Visit: No Status: Acute Code(s): E11.8 - TYPE 2 DIABETES MELLITUS WITH UNSPECIFIED COMPLICATIONS; E11.65 - TYPE 2 DIABETES MELLITUS WITH HYPERGLYCEMIA SNOMED Code(s): 67387034 (11) Peripheral artery disease Current Visit: No Status: Acute Code(s): I73.9 - PERIPHERAL VASCULAR DISEASE, UNSPECIFIED SNOMED Code(s): 775630401 (12) Smoker Current Visit: No Status: Acute Code(s): F17.200 - NICOTINE DEPENDENCE, UNSPECIFIED, UNCOMPLICATED SNOMED Code(s): 86187748 (13) Dyslipidemia Current Visit: No Status: Chronic Code(s): E78.5 - HYPERLIPIDEMIA, UNSPECIFIED SNOMED Code(s): 115236740 (14) Hypertension Current Visit: No Status: Chronic Code(s): I10 - ESSENTIAL (PRIMARY) HYPERTENSION SNOMED Code(s): 78444591 Hospital course:This is a 58-year-old female admitted with multiple medical issues, scheduled for EGD and colonoscopy today. Hemoglobin 3.1, receiving supplements as per nephrology. Creatinine trending down, 3.95. Urine cultures reporting Klebsiella/ESBL. Preliminary blood cultures reporting no growth. Afebrile currently, T-max 99.1. Maintained on Merrem. 10/08/2019 minimal ambulation. Maintained on IV fluids. EGD on 10/04 revealed mild antral gastritis, duodenitis and mild esophagitis. Colonoscopy not performed secondary to poor prep. Rescheduled, performed over the weekend repor taina no active bleeding, normal-appearing colon from rectum to cecum, impaired complete visualization of the mucosa secondary to poor prep, moderate sigmoid diverticulosis, mild internal hemorrhoids, biopsies obtained. Hemoglobin 8.9, creatinine trending down to 2.81. Potassium 3.8. Maintained on IV antibiotics of Merrem and local wound care as per infectious disease. Afebrile. Normal WBC. 10/09/2019Significant clinical improvement. Patient will be discharged to subacute rehab pending results of repeat urine culture, clearance from pulmonary, nephrology, ID and authorization, in a stable condition with guarded prognosis. Recommendations regarding resuming Plavix as per GI. DC antibiotics as per infectious disease. 10/10/2019 continues to require maximum assist as per PT evaluation. Maintained on Merrem, repeat preliminary urine culture reporting enterococcus D, gram- negative bacilli. T-max 99.6. Labs pending. Good diet intake. Denies abdominal pain. Denies nausea vomiting or diarrhea. Denies chest pain, palpitations. Denies shortness of breath. 10/11/2019 T-max 99.4, WBC 11,, creatinine down to 2.6. Repeat urine cultures noted. ID recommending discontinuing Merrem on discharge. Denies chest pain, palpitations, shortness of breath. Vital signs stable. 10/12/2019 no overnight events. Afebrile. Denies lightheadedness, dizziness or focal deficits.VSS, maintaining O2 sats in the 90s on room air. Denies chest pain, palpitations or shortness of breath. 10/15/2019 no overnight events, managed off of IV antibiotics /Wound Care as per infectious disease. T-max 100.3, normal WBC. Renal function improving, down to 1.77. 10/16/2019 wound care as per infectious disease. Afebrile. Hemoglobin 8.5, creatinine 1.83. Denies chest pain, palpitations or shortness of breath. Significant clinical improvement. Patient is being discharged to subacute rehab today, authorization received, in a stable condition with guarded prognosis. Microbiology 10/01/19 17:07 Urine,Catheterized Urine Culture - Final Klebsiella pneumoniae 10/07/19 06:00 Urine,Voided Urine Culture - Final Klebsiella pneumoniae Enterococcus faecium 10/01/19 18:31 Blood Blood Culture - Final No Growth after 144 hours The impression and plan of care has been dictated as directed. : I performed a history and examination of this patient, discussed the same with the dictator. I agree with the dictator's note ,documented as a scribe. Any additional findings or plans will be noted. Patient Condition at Discharge: Stable Plan - Discharge Summary Discharge Rx Participant: No New Discharge Prescriptions: New Baclofen [Lioresal] 10 mg PO BID PRN tab PRN Reason: Muscle Spasm Pantoprazole Sodium [Protonix] 40 mg PO DAILY #30 tablet. INSULIN LISPRO (HumaLOG) [humaLOG] 0 unit SQ ACHS #1 vial Nystatin 100,000 Unit/ml Susp [Mycostatin Oral Susp] 400,000 unit PO QID 5 Days ml Continue Atenolol [Tenormin] 50 mg PO DAILY Citalopram Hydrobromide [CeleXA] 40 mg PO DAILY Gabapentin [Neurontin] 200 mg PO TID #18 cap Changed Insulin Glargine,Hum.rec.anlog [Lantus Solostar] 20 unit SQ HS #0 Discontinued Colchicine [Colcrys] 0.6 mg PO DAILY Allopurinol [Zyloprim] 300 mg PO QAM Enalapril [Vasotec] 20 mg PO BID Potassium Chloride [Klor-Con 20] 20 meq PO BID Cyclobenzaprine [Flexeril] 10 mg PO DAILY PRN PRN Reason: Pain metFORMIN HCL 500 mg PO BID Furosemide [Lasix] 40 mg PO DAILY #10 tablet Atorvastatin [Lipitor] 40 mg PO HS traMADol HCl [Ultram] 50 mg PO Q8H PRN PRN Reason: MODERATE TO SEVERE Pain No Action Clopidogrel Bisulfate [Plavix] 75 mg PO HS Discharge Medication List Atenolol [Tenormin] 50 mg PO DAILY 04/25/19 [History] Citalopram Hydrobromide [CeleXA] 40 mg PO DAILY 04/25/19 [History] Clopidogrel Bisulfate [Plavix] 75 mg PO HS 06/01/19 [History] Baclofen [Lioresal] 10 mg PO BID PRN tab 10/09/19 [Rx] Gabapentin [Neurontin] 200 mg PO TID #18 cap 10/09/19 [Rx] INSULIN LISPRO (HumaLOG) [humaLOG] 0 unit SQ ACHS #1 vial 10/09/19 [Rx] Insulin Glargine,Hum.rec.anlog [Lantus Solostar] 20 unit SQ HS #0 10/09/19 [Rx] Pantoprazole Sodium [Protonix] 40 mg PO DAILY #30 tablet. 10/09/19 [Rx] Nystatin 100,000 Unit/ml Susp [Mycostatin Oral Susp] 400,000 unit PO QID 5 Days ml 10/16/19 [Rx] Follow up Appointment(s)/Referral(s): Paty Cortez MD [STAFF PHYSICIAN] - 1 Week (Please call office to set up a telehealth call) Aziza Adams MD [STAFF PHYSICIAN] - 10/24/19 10:00 am [facility], [NON-STAFF] - 1 Week Juan Hunt MD [STAFF PHYSICIAN] - 10/10/19 1:30 pm Rene Armijo DO [Primary Care Provider] - 1 Week (After DC from subacute rehab) Activity/Diet/Wound Care/Special Instructions: Obtain clearance to resume Plavix as per GI .Dr. Regan wants to follow up on Tuesday in the wound care center at [facility] CBC, BMP in 3 days Discharge Disposition: TRANSFER TO SNF/ECF
--- NOTE | 2019-10-16 13:56 | PN ---
PROGRESS NOTE DATE OF SERVICE: 10/16/2019 REASON FOR FOLLOWUP: 1. VRE urinary tract infection. 2. Right foot wound. INTERVAL HISTORY: The patient is currently afebrile. The patient is breathing comfortably. Patient denies having any chest pain or cough. No nausea, no vomiting, no abdominal pain or pain to the right foot area. PHYSICAL EXAMINATION: Blood pressure 150/75 with a pulse of 50, temperature 98.5, she is 98% on room air. General description is a middle-aged female, lying in bed in no distress. RESPIRATORY SYSTEM: Unlabored breathing, clear to auscultation anteriorly. HEART: S1, S2. Regular rate and rhythm. ABDOMEN: Soft, no tenderness. Right foot is covered, continue with the dressing. LABS: Hemoglobin 8.5, white count 7.8. BUN of 84, creatinine 1.83. DIAGNOSTIC IMPRESSION AND PLAN: 1. Patient with VRE positive urine culture. Possible mild cystitis, adequately treated, currently off antibiotic without recurrence of symptoms. 2. Right foot wound, current local wound care is ordered. Continue supportive care. MMODL / IJN: [id number] /
--- NOTE | 2019-10-17 05:57 | CDI ---
Documentation Clarification Form Date: 10/17/2019 From: Smith Sheppard Phone: If you have a question about this query, please contact Priya Putnam, Res Counselor at [phone] between 8am and 5pm. Admit Date: 10/01/2019 Discharge Date:10/16/2019 Patient Name: Priya Mars Visit Number: [id number] ATTENTION: The Clinical Documentation Specialists (CDI) and [facility] Coding Staff appreciate your assistance in clarifying documentation. Please respond to the clarification below the line at the bottom and electronically sign. The CDI & [facility] Coding staff will review the response and follow-up if needed. Please note: Queries are made part of the Legal Health Record. If you have any questions, please contact the author of this message via ITS. Dear Rene Patel., A pressure ulcer was documented in 10/13 Dr. Sean Sheth Progress note "Significant right foot ulceration as well as a necrotic changes possible pressure ulcer, grade 2 to 3" History/Risk Factors: Diabetic foot ulcer, Sepsis, Septic shock, CKD, ATN. Location: Right lateral foot, 4th Toe and 5th Toe & Heel. Wound description from Nursing Note: Right lateral foot, 4th Toe and 5th Toe -- Stage 1 Hospital aquired. Right Heel -- Stage 3 Pressure ulcer POA. Treatment: Saline irrigant, wet to dry dressing. In your professional opinion, can you please clarify the diagnosis, location, laterality and whether present on admission (POA): Stage 1 Pressure/Decubitus Ulcer (intact skin, non-blanching redness of local area) Stage 2 Pressure/Decubitus Ulcer (Partial thickness, loss of dermis, pink wound bed) Stage 3 Pressure/Decubitus Ulcer (Full thickness tissue loss) Stage 4 Pressure/Decubitus Ulcer (Full thickness tissue loss with exposed bone, tendon, or muscle. May have slough or eschar present) Unstageable Other condition, please specify Unable to determine Stage II sacral decubitus ulcer present on admission. Stage II pressure ulcer fourth and fifth toe and right heel present on [facility]
== END 2019-10-16 14:32 | DRG 871 ==
LOC: EC 14:34 → 2SICU 19:38 → 4SSUR 10-03 14:28
PROVIDERS: ADMIT Family Medicine; ATTEND Family Medicine
PROC: 0DB78ZX Excision of Stomach, Pylorus, Via Natural or Artificial Opening Endoscopic, Diagnostic (ICD-10-PCS; principal; 2019-10-05 07:45)
PROC: 0DB98ZX Excision of Duodenum, Via Natural or Artificial Opening Endoscopic, Diagnostic (ICD-10-PCS; principal; 2019-10-05 07:45)
PROC: 30233N1 Transfusion of Nonautologous Red Blood Cells into Peripheral Vein, Percutaneous Approach (ICD-10-PCS; 2019-10-06)
PROC: 0DBP8ZX Excision of Rectum, Via Natural or Artificial Opening Endoscopic, Diagnostic (ICD-10-PCS; 2019-10-06)
DX: A40.3 Sepsis due to Streptococcus pneumoniae (principal); N17.0 Acute kidney failure with tubular necrosis; R65.21 Severe sepsis with septic shock; G93.41 Metabolic encephalopathy; K29.71 Gastritis, unspecified, with bleeding; K29.81 Duodenitis with bleeding; K57.31 Diverticulosis of large intestine without perforation or abscess with bleeding; E87.2 Acidosis; D62 Acute posthemorrhagic anemia; M62.82 Rhabdomyolysis; E86.0 Dehydration; E87.5 Hyperkalemia; N30.90 Cystitis, unspecified without hematuria; E87.6 Hypokalemia; F17.200 Nicotine dependence, unspecified, uncomplicated; F32.9 Major depressive disorder, single episode, unspecified; I27.20 Pulmonary hypertension, unspecified; E11.22 Type 2 diabetes mellitus with diabetic chronic kidney disease; E11.51 Type 2 diabetes mellitus with diabetic peripheral angiopathy without gangrene; E78.00 Pure hypercholesterolemia, unspecified; E83.42 Hypomagnesemia; F41.9 Anxiety disorder, unspecified; G56.00 Carpal tunnel syndrome, unspecified upper limb; L89.152 Pressure ulcer of sacral region, stage 2; L89.612 Pressure ulcer of right heel, stage 2; L89.892 Pressure ulcer of other site, stage 2; I12.9 Hypertensive chronic kidney disease with stage 1 through stage 4 chronic kidney disease, or unspecified chronic kidney disease; W06.XXXA Fall from bed, initial encounter; K21.0 Gastro-esophageal reflux disease with esophagitis; N18.3 Chronic kidney disease, stage 3 (moderate); E11.621 Type 2 diabetes mellitus with foot ulcer; K64.8 Other hemorrhoids; E78.5 Hyperlipidemia, unspecified; M19.90 Unspecified osteoarthritis, unspecified site; B96.89 Other specified bacterial agents as the cause of diseases classified elsewhere; M1A.9XX0 Chronic gout, unspecified, without tophus (tophi); Z96.652 Presence of left artificial knee joint; E11.622 Type 2 diabetes mellitus with other skin ulcer; E11.65 Type 2 diabetes mellitus with hyperglycemia; Z11.59 Encounter for screening for other viral diseases; Z79.899 Other long term (current) drug therapy; Z79.4 Long term (current) use of insulin; Z79.02 Long term (current) use of antithrombotics/antiplatelets; Z88.2 Allergy status to sulfonamides; Z86.73 Personal history of transient ischemic attack (TIA), and cerebral infarction without residual deficits; Z90.710 Acquired absence of both cervix and uterus; Z98.890 Other specified postprocedural states; Z89.512 Acquired absence of left leg below knee; Z82.49 Family history of ischemic heart disease and other diseases of the circulatory system; Z82.3 Family history of stroke; Y92.003 Bedroom of unspecified non-institutional (private) residence as the place of occurrence of the external cause
CPT/HCPCS: 36415; 43239; 45380; 70450; 71046; 72070; 72100; 72125; 76770; 80048; 80053; 81001; 82272; 82550; 82728; 83036; 83540; 83550; 83735; 83880; 84132; 84484; 85025; 85027; 85610; 85730; 86140; 86850; 86900; 86901; 86920; 87040; 87077; 87086; 87186; 87635; 88305; 93005; 93306; 94640; 96361; 96365; 96366; 96375; 99291

== ENCOUNTER 2020-04-20 18:27 | Inpatient (IN) | payer MEDICARE, OTHER ==
[2020-04-20] MEDS ORDERED: ACETAMINOPHEN TAB 325 MG TAB PO STA ×2 (18:50→20:27)
[2020-04-20] MEDS ORDERED: HYDROmorphone 0.5 MG/0.5 ML SYRINGE IVP STA (18:51)
[2020-04-20 18:56] LABS: Anisocytosis Slight; Basophils % (A) 0 %; Eosinophils % (A) 1 %; HCT 30.3 % (34.0-46.0); HGB 9.7 gm/dL (11.4-16.0); Lymphocytes # (A) 0.9 k/uL (1.0-4.8); Lymphocytes % (A) 12 %; MCH 26.7 pg (25.0-35.0); MCHC 32.2 g/dL (31.0-37.0); MCV 82.8 fL (80.0-100.0); Mean Platelet Volume 8.6; Monocytes # (A) 0.3 k/uL (0-1.0); Monocytes % (A) 5 %; Neutrophils # (A) 5.9 k/uL (1.3-7.7); Neutrophils % (A) 82 %; Platelet Count 243 k/uL (150-450); RBC 3.65 m/uL (3.80-5.40); RDW 16.2 % (11.5-15.5); WBC 7.3 k/uL (3.8-10.6)
[2020-04-20] MEDS ORDERED: IBUPROFEN 600 MG TAB PO STA (19:09)
[2020-04-20 19:14] LABS: Albumin 3.6 g/dL (3.5-5.0); C Reactive Protein 51.3 mg/L (<10.0); Calcium 8.4 mg/dL (8.4-10.2); Magnesium 1.9 mg/dL (1.6-2.3); Potassium 4.2 mmol/L (3.5-5.1); Total Bilirubin 0.4 mg/dL (0.2-1.3); Total Protein 6.5 g/dL (6.3-8.2)
[2020-04-20 19:16] LABS: INR 0.9 (<1.2); Partial Thromboplastin Time 24.8 sec (22.0-30.0); Prothrombin Time 9.7 sec (9.0-12.0)
--- NOTE | 2020-04-20 19:21 | XR ---
EXAMINATION TYPE: XR chest 1V portable DATE OF EXAM: 04/20/2020 COMPARISON: 10/01/2019. HISTORY: Cough and fever. TECHNIQUE: Single frontal view of the chest is obtained. FINDINGS: The lungs are poorly aerated with mild prominence of the interstitial markings on the righ t. No pleural effusion, or pneumothorax seen. The cardiac silhouette size is within normal limits. The osseous structures are intact. IMPRESSION: Nonspecific mildly prominent right interstitial opacities, may represent hypoaeration ch anges.
[2020-04-20 19:22] LABS: Appearance,Urine Cloudy (Clear); Bacteria,Urine Many /hpf; Bilirubin,Urine Negative (Negative); Blood,Urine Trace (Negative); Color,Urine Light Yellow; Glucose,Urine (UA) Negative (Negative); Ketones,Urine Negative (Negative); Leukocyte Esterase,Urine Large (Negative); Mucus,Urine Rare /hpf; Nitrite,Urine Negative (Negative); Protein,Urine 1+ (Negative); RBC,Urine 1 /hpf (0-5); Specific Gravity,Urine 1.013 (1.001-1.035); Squamous Epithelial Cell,Urine 3 /hpf (0-4); Urobilinogen,Urine <2.0 mg/dL (<2.0); WBC,Urine 154 /hpf (0-5)
[2020-04-20] MEDS ORDERED: DEXAMETHASONE SOD PHOSPHATE 4 MG/ML 1 ML VIAL IV STA (19:30)
[2020-04-20] MEDS ORDERED: AZITHROMYCIN 500 MG in SODIUM CHLORIDE 0.9% 250 ML IVPB STA (19:30)
[2020-04-20 19:33] LABS: D-Dimer 0.85 mg/L FEU (<0.60)
--- NOTE | 2020-04-20 19:33 | ED ---
Fever HPI - General Chief Complaint: Fever Stated Complaint: Fever,Cough,Vomiting,Right Leg Pain Time Seen by Provider: 04/20/20 18:45 Source: EMS Mode of arrival: EMS Limitations: no limitations - History of Present Illness Initial Comments: 59yo female presnting for cc of fever, cough, body aches, vomitnig/nausea. pt states that today she developed body aches, slght cause and on and off nausea/vomiting. patient denies chest pain or SOB. Patient states she was told on EMS arrival she had a fever. pt states she took tylenol 30minutes prior to arrival for right leg pain. pt states she has b/l LE amputations secondary to vascular disease and has chronic low back pain that at times radiates to the leg. pt states it is currently radiating down the right leg. pt denies loss of bowel/bladder control. denies color changes to stump. pt denies abdominal pain. pt denies constipation. pt denies diarrhea, bloody/dark stools or noticing blood/dark vomit. on arrival patient has emesis bag in hand. febrile. 93% on RA. - Related Data Home Medications Medication Instructions Recorded Confirmed Citalopram Hydrobromide [CeleXA] 40 mg PO DAILY 04/25/19 10/02/19 atenoloL [Tenormin] 50 mg PO DAILY 04/25/19 10/02/19 Clopidogrel Bisulfate [Plavix] 75 mg PO HS 06/01/19 10/02/19 Previous Rx's Medication Instructions Recorded Baclofen [Lioresal] 10 mg PO BID PRN tab 10/09/19 Gabapentin [Neurontin] 200 mg PO TID #18 cap 10/09/19 INSULIN LISPRO (HumaLOG) [humaLOG] 0 unit SQ ACHS #1 vial 10/09/19 Insulin Glargine,Hum.rec.anlog 20 unit SQ HS #0 10/09/19 [Lantus Solostar] Pantoprazole Sodium [Protonix] 40 mg PO DAILY #30 tablet. 10/09/19 Nystatin 100,000 Unit/ml Susp 400,000 unit PO QID 5 Days ml 10/16/19 [Mycostatin Oral Susp] Allergies Allergy/AdvReac Type Severity Reaction Status Date / Time sulfamethoxazole Allergy Itching Verified 04/20/20 18:36 [From Bactrim] trimethoprim [From Bactrim] Allergy Itching Verified 04/20/20 18:36 Review of Systems ROS Statement: Those systems with pertinent positive or pertinent negative responses have been documented in the HPI. ROS Other: All systems not noted in ROS Statement are negative. Past Medical History Past Medical History: CVA/TIA, Diabetes Mellitus, Hyperlipidemia, Hypertension, Osteoarthritis (OA), Vascular Disorder Additional Past Medical History / Comment(s): chronic gout, carpal tunnel, TIA 2018-no residual effects. wound on rt heel-has been seen at wound care center 05/28, History of Any Multi-Drug Resistant Organisms: ESBL, Other MDRO Date of last positivie culture/infection: 10/07/19 MDRO Source:: ESBL URINE Past Surgical History: Hysterectomy Additional Past Surgical History / Comment(s): neck surg, left BKA in October 25, & then revision of in December 25. stent rt leg 02/24, bilat lower extremity amputation. RAKA and LBKA Past Anesthesia/Blood Transfusion Reactions: No Reported Reaction Past Psychological History: Depression Smoking Status: Former smoker Past Alcohol Use History: None Reported Past Drug Use History: None Reported - Past Family History Mother Additional Family Medical History / Comment(s): at age 47 from heart defect Father Family Medical History: CVA/TIA, Hyperlipidemia, Hypertension Additional Family Medical History / Comment(s): 2 strokes affected brain stem General Exam - General Exam Comments Initial Comments: General: The patient is awake and alert Eye: +3 mm pupils are equal, round and reactive to light, extra-ocular movements are intact. No nystagmus. There is normal conjunctiva bilaterally. No signs of icterus. Ears, nose, mouth and throat: There are moist mucous membranes and no oral lesions. Neck: The neck is supple, there is no tenderness or JVD. Cardiovascular: There is a regular rate and rhythm. No murmur, rub or gallop is appreciated. Respiratory: Respirations are non-labored, breath sounds are equal. No wheezes, stridor. scattered rhonchi Gastrointestinal: Soft, non-distended, non-tender abdomen without masses or organomegaly noted. There is no rebound or guarding present. Musculoskeletal: Normal ROM, no tenderness. Strength 5/5 of the UE and LE b/l. No redness to stumps b/l Sensation intact. Radial pulses equal bilaterally 2+. Neurological: A&O x 3. CN II-XII intact grossly, There are no obvious motor or sensory deficits. Coordination appears grossly intact. Speech is normal. Skin: Skin is warm and dry and no rashes or lesions are noted. Psychiatric: Cooperative Limitations: no limitations Course Vital Signs 04/20/20 04/20/20 04/20/20 18:30 20:07 20:49 Temperature 102.5 F H 101 F H Pulse Rate 89 77 75 Respiratory 18 18 18 Rate Blood Pressure 148/80 128/70 130/62 O2 Sat by Pulse 93 L 97 93 L Oximetry 04/20/20 20:51 Temperature Pulse Rate Respiratory Rate Blood Pressure O2 Sat by Pulse 96 Oximetry Medical Decision Making - Medical Decision Making 59yo presenting for n/v/ bodyaches, right leg pain. CTA (-) PE. Covid +. EKG no acute changes. pt denies SOB. pt has covid pneumonia, uTI. pt does not appear septic. culture pending. pt hydrated. pt us right LE (). stump warm no discoloration. chronic back pain. pt will be admitted for respiratory status monitoring, iv abx and hydration. patient agreeable to admission and care plan. Dr. troncoso agreeable to car epln. - Lab Data Result diagrams: 04/20/20 18:51 04/20/20 18:51 Lab Results 04/20/20 04/20/20 04/20/20 Range/Units 18:51 18:51 18:51 WBC 7.3 (3.8-10.6) k/uL RBC 3.65 L (3.80-5.40) m/uL Hgb 9.7 L (11.4-16.0) gm/dL Hct 30.3 L (34.0-46.0) % MCV 82.8 (80.0-100.0) fL MCH 26.7 (25.0-35.0) pg MCHC 32.2 (31.0-37.0) g/dL RDW 16.2 H (11.5-15.5) % Plt Count 243 (150-450) k/uL MPV 8.6 Neutrophils % 82 % Lymphocytes % 12 % Monocytes % 5 % Eosinophils % 1 % Basophils % 0 % Neutrophils # 5.9 (1.3-7.7) k/uL Lymphocytes # 0.9 L (1.0-4.8) k/uL Monocytes # 0.3 (0-1.0) k/uL Eosinophils # 0.0 (0-0.7) k/uL Basophils # 0.0 (0-0.2) k/uL Anisocytosis Slight PT 9.7 (9.0-12.0) sec INR 0.9 (<1.2) APTT 24.8 (22.0-30.0) sec D-Dimer 0.85 H (<0.60) mg/L FEU Sodium 137 (137-145) mmol/L Potassium 4.2 (3.5-5.1) mmol/L Chloride 108 H (98-107) mmol/L Carbon Dioxide 20 L (22-30) mmol/L Anion Gap 9 mmol/L BUN 29 H (7-17) mg/dL Creatinine 1.23 H (0.52-1.04) mg/dL Est GFR (CKD-EPI)AfAm 56 (>60 ml/min/1.73 sqM) Est GFR (CKD-EPI)NonAf 49 (>60 ml/min/1.73 sqM) Glucose 135 H (74-99) mg/dL Plasma Lactic Acid Erwin (0.7-2.0) mmol/L Calcium 8.4 (8.4-10.2) mg/dL Magnesium 1.9 (1.6-2.3) mg/dL Total Bilirubin 0.4 (0.2-1.3) mg/dL AST 22 (14-36) U/L ALT 14 (4-34) U/L Alkaline Phosphatase 101 (38-126) U/L Lactate Dehydrogenase 632 H (313-618) U/L C-Reactive Protein 51.3 H (<10.0) mg/L Total Protein 6.5 (6.3-8.2) g/dL Albumin 3.6 (3.5-5.0) g/dL Urine Color Urine Appearance (Clear) Urine pH (5.0-8.0) Ur Specific Williamson (1.001-1.035) Urine Protein (Negative) Urine Glucose (UA) (Negative) Urine Ketones (Negative) Urine Blood (Negative) Urine Nitrite (Negative) Urine Bilirubin (Negative) Urine Urobilinogen (<2.0) mg/dL Ur Leukocyte Esterase (Negative) Urine RBC (0-5) /hpf Urine WBC (0-5) /hpf Urine WBC Clumps (None) /hpf Ur Squamous Epith Cells (0-4) /hpf Urine Bacteria (None) /hpf Urine Mucus (None) /hpf Coronavirus (PCR) (Not Detectd) 04/20/20 04/20/20 04/20/20 Range/Units 18:51 19:03 19:04 WBC (3.8-10.6) k/uL RBC (3.80-5.40) m/uL Hgb (11.4-16.0) gm/dL Hct (34.0-46.0) % MCV (80.0-100.0) fL MCH (25.0-35.0) pg MCHC (31.0-37.0) g/dL RDW (11.5-15.5) % Plt Count (150-450) k/uL MPV Neutrophils % % Lymphocytes % % Monocytes % % Eosinophils % % Basophils % % Neutrophils # (1.3-7.7) k/uL Lymphocytes # (1.0-4.8) k/uL Monocytes # (0-1.0) k/uL Eosinophils # (0-0.7) k/uL Basophils # (0-0.2) k/uL Anisocytosis PT (9.0-12.0) sec INR (<1.2) APTT (22.0-30.0) sec D-Dimer (<0.60) mg/L FEU Sodium (137-145) mmol/L Potassium (3.5-5.1) mmol/L Chloride (98-107) mmol/L Carbon Dioxide (22-30) mmol/L Anion Gap mmol/L BUN (7-17) mg/dL Creatinine (0.52-1.04) mg/dL Est GFR (CKD-EPI)AfAm (>60 ml/min/1.73 sqM) Est GFR (CKD-EPI)NonAf (>60 ml/min/1.73 sqM) Glucose (74-99) mg/dL Plasma Lactic Acid Erwin 1.4 (0.7-2.0) mmol/L Calcium (8.4-10.2) mg/dL Magnesium (1.6-2.3) mg/dL Total Bilirubin (0.2-1.3) mg/dL AST (14-36) U/L ALT (4-34) U/L Alkaline Phosphatase (38-126) U/L Lactate Dehydrogenase (313-618) U/L C-Reactive Protein (<10.0) mg/L Total Protein (6.3-8.2) g/dL Albumin (3.5-5.0) g/dL Urine Color Light Yellow Urine Appearance Cloudy H (Clear) Urine pH 6.0 (5.0-8.0) Ur Specific Williamson 1.013 (1.001-1.035) Urine Protein 1+ H (Negative) Urine Glucose (UA) Negative (Negative) Urine Ketones Negative (Negative) Urine Blood Trace H (Negative) Urine Nitrite Negative (Negative) Urine Bilirubin Negative (Negative) Urine Urobilinogen <2.0 (<2.0) mg/dL Ur Leukocyte Esterase Large H (Negative) Urine RBC 1 (0-5) /hpf Urine WBC 154 H (0-5) /hpf Urine WBC Clumps Few H (None) /hpf Ur Squamous Epith Cells 3 (0-4) /hpf Urine Bacteria Many H (None) /hpf Urine Mucus Rare H (None) /hpf Coronavirus (PCR) Detected A (Not Detectd) Disposition Clinical Impression: UTI (urinary tract infection), COVID-19, Vomiting Disposition: ADMITTED IP TO THIS HOSP Condition: Stable Is patient prescribed a controlled substance at d/c from ED?: No Time of Disposition: 21:18 Decision to Admit Reason: Admit from EC Decision Date: 04/20/20 Decision Time: 21:18
--- NOTE | 2020-04-20 20:18 | CT ---
EXAMINATION TYPE: CT chest angio for PE DATE OF EXAM: 04/20/2020 COMPARISON: Same-day radiograph. HISTORY: positive d dimer CT DLP: 347.6 mGycm Automated exposure control for dose reduction was used. CONTRAST: CT Chest for pulmonary embolism performed with with IV Contrast, patient injected with 90 mL of Isovu e 370. FINDINGS: LUNGS: There are moderate confluent groundglass opacities in the dependent upper and lower lobes bila terally. There are additional diffuse mild patchy groundglass opacities. There is no pleural effusi on or pneumothorax seen. The tracheobronchial tree is patent. MEDIASTINUM: There is satisfactory enhancement of the pulmonary artery and its branches, there is no CT evidence for pulmonary embolism. There are no greater than 1 cm hilar or mediastinal lymph nodes. No pericardial effusion is seen. OTHER: Multilevel moderate thoracic spondylosis. Otherwise no additional significant abnormality is seen. IMPRESSION: Bilateral moderate pulmonary opacities, concerning for Covid pneumonia. No evidence of PE.
[2020-04-20] MEDS ORDERED: NALOXONE 0.4 MG/ML 1 ML VIAL IV PRN (20:32)
--- NOTE | 2020-04-20 21:09 | US ---
EXAMINATION TYPE: US venous doppler duplex LE RT DATE OF EXAM: 04/20/2020 8:48 PM COMPARISON: US 2019 CLINICAL HISTORY: pain. Right leg pain, right leg amputated above knee SIDE PERFORMED: Right TECHNIQUE: The lower extremity deep venous system is examined utilizing real time linear array sonog keith with graded compression, doppler sonography and color-flow sonography. VESSELS IMAGED: Common Femoral Vein Deep Femoral Vein Greater Saphenous Vein * Femoral Vein (* superficial vessels) Right Leg: Appears negative for DVT IMPRESSION: No evidence of acute DVT in the right lower extremity.
[2020-04-20 22:53] LABS: Ferritin 173.4 ng/mL (10.0-291.0)
[2020-04-20] MEDS: CHOLECALCIFEROL 1,000 UNIT TAB PO SCH (22:58)
[2020-04-20] MEDS: ZINC SULFATE 220 MG CAP PO SCH (22:58)
[2020-04-20] MEDS: ASCORBIC ACID 500 MG TAB PO SCH (22:58)
[2020-04-21 07:32] LABS: Glucose,Whole Blood 193 mg/dL (75-99)
[2020-04-21] MEDS: GABAPENTIN 100 MG CAP PO SCH ×3 (09:15→20:31)
[2020-04-21] MEDS: INSULIN ASPART (NovoLOG) 100 UNIT/ML VIAL SQ SCH ×4 (09:15→20:32)
[2020-04-21] MEDS: ASCORBIC ACID 500 MG TAB PO SCH ×2 (09:15→20:31)
[2020-04-21] MEDS: atenoloL 50 MG TAB PO SCH (09:15)
[2020-04-21] MEDS: ZINC SULFATE 220 MG CAP PO SCH (09:16)
[2020-04-21] MEDS: PANTOPRAZOLE 40 MG TABLET PO SCH (09:16)
[2020-04-21] MEDS: CHOLECALCIFEROL 1,000 UNIT TAB PO SCH (09:16)
[2020-04-21] MEDS: BACLOFEN 10 MG TAB PO PRN (09:22)
[2020-04-21 09:31] LABS: African American GFR (CKD) 64.1 (60.0-200.0); BUN/Creat Ratio 27.27 Ratio (12.00-20.00); Calcium 8.7 mg/dL (8.7-10.3); Non-African American GFR(CKD) 55.3 (60.0-200.0); Potassium 4.3 mmol/L (3.5-5.5)
[2020-04-21 09:39] LABS: Ferritin 182.2 ng/mL (10.0-291.0)
[2020-04-21 11:39] LABS: Glucose,Whole Blood 138 mg/dL (75-99)
[2020-04-21] MEDS: DEXAMETHASONE SOD PHOSPHATE 10 MG/ML 1 ML VIAL IV SCH (12:10)
[2020-04-21] MEDS: ENOXAPARIN 40 MG/0.4 ML SYRINGE SQ SCH (12:11)
[2020-04-21] MEDS ORDERED: REMDESIVIR 200 MG in SODIUM CHLORIDE 0.9% 250 ML IVPB ONE (15:00)
--- NOTE | 2020-04-21 16:45 | P.HPIM ---
History of Present Illness H&P Date: 04/21/20 Chief Complaint: Nausea, vomiting, flulike symptoms This is a 59-year-old female presented to the ER with history of fever, nausea vomiting , body aches, dry cough, right stump pain, in a patient with history of right stump stent feb [address] Saez, CVA/TIA, diabetes mellitus, hyperlipidemia, hypertension, osteoarthritis, vascular disorder, chronic gout, depression, former smoker and multiple other medical issues. Denies chest pain, palpitations or shortness of breath, O2 sat on admission, in the 90s on room air. Denies bleeding. Currently afebrile with T-max 102.5. Blood and urine cultures pending. Chest x-ray reported nonspecific mildly prominent right inte rstitial opacities. Chest CTA reported bilateral moderate pulmonary opacities, concerning for coated pneumonia- groundglass in the dependent upper and lower lobes bilaterally with additional diffuse mild patchy groundglass opacities, no pneumothorax, no pulmonary embolism, multilevel moderate thoracic spondylosis. Tested positive for mac virus. Fair time 173.4, 182.2, LDH 632, down to 233, CRP 51.3, d-dimer 0.85, pro calcitonin 0.13. UA reported large leukocytes, 150 for urine WBCs, negative for nitrates, many bacteria. On admission BUN 29 creatinine 1.23, with IV fluid hydration currently 30/1.1. Blood sugars mildly elevated. Lactic acid 1.4. Hemoglobin 9.7, platelets 243. Normal WBC. Antibiotics and IV fluid hydration initiated in the ER. Review of Systems ROS Statement: Those systems with pertinent positive or pertinent negative responses have been documented in the HPI. ROS Other: All systems not noted in ROS Statement are negative. Past Medical History Past Medical History: CVA/TIA, Diabetes Mellitus, Hyperlipidemia, Hypertension, Osteoarthritis (OA), Vascular Disorder Additional Past Medical History / Comment(s): chronic gout, carpal tunnel, TIA 2018-no residual effects. wound on rt heel-has been seen at wound care center 05/28, History of Any Multi-Drug Resistant Organisms: ESBL, Other MDRO Date of last positivie culture/infection: 10/07/19 MDRO Source:: ESBL URINE Past Surgical History: Hysterectomy Additional Past Surgical History / Comment(s): neck surg, left BKA in October 25, & then revision of in December 25. stent rt leg 02/24, bilat lower extremity amputation. RAKA and LBKA Past Anesthesia/Blood Transfusion Reactions: No Reported Reaction Past Psychological History: Depression Additional Psychological History / Comment(s): . Very anxious about current situation Smoking Status: Former smoker Past Alcohol Use History: None Reported Additional Past Alcohol Use History / Comment(s): started smoking age 17, cutdown to maybe a cigarette q few days, does not remember when she last smoked Past Drug Use History: None Reported - Past Family History Mother Additional Family Medical History / Comment(s): at age 47 from heart defect Father Family Medical History: CVA/TIA, Hyperlipidemia, Hypertension Additional Family Medical History / Comment(s): 2 strokes affected brain stem Medications and Allergies Home Medications Medication Instructions Recorded Confirmed Type Citalopram Hydrobromide [CeleXA] 40 mg PO DAILY 04/25/19 04/21/20 History atenoloL [Tenormin] 50 mg PO DAILY 04/25/19 04/21/20 History Clopidogrel Bisulfate [Plavix] 75 mg PO HS 06/01/19 04/21/20 History Baclofen [Lioresal] 10 mg PO BID PRN tab 10/09/19 04/21/20 Rx Gabapentin [Neurontin] 200 mg PO TID #18 cap 10/09/19 04/21/20 Rx Pantoprazole Sodium [Protonix] 40 mg PO DAILY #30 tablet.dr 10/09/19 04/21/20 Rx Allopurinol [Zyloprim] 300 mg PO DAILY 04/21/20 04/21/20 History Ergocalciferol (Vitamin D2) 50,000 unit PO Q30D 04/21/20 04/21/20 History [Drisdol] Losartan Potassium [Cozaar] 50 mg PO DAILY 04/21/20 04/21/20 History Potassium Chloride ER [K-Dur 20] 20 meq PO DAILY 04/21/20 04/21/20 History Temazepam [Restoril] 15 mg PO HS PRN 04/21/20 04/21/20 History amLODIPine [Norvasc] 10 mg PO DAILY 04/21/20 04/21/20 History traMADol HCL 50 mg PO Q8H PRN 04/21/20 04/21/20 History Allergies Allergy/AdvReac Type Severity Reaction Status Date / Time sulfamethoxazole Allergy Itching Verified 04/21/20 09:45 [From Bactrim] trimethoprim [From Bactrim] Allergy Itching Verified 04/21/20 09:45 Physical Exam Vitals: Vital Signs Temp Pulse Pulse Resp BP BP Pulse Ox 04/21/20 13:51 98.4 F 50 L 17 133/71 95 04/21/20 09:43 98.0 F 56 L 20 138/76 95 04/21/20 08:00 56 L 20 04/21/20 05:20 97.5 F L 65 18 124/69 95 04/21/20 01:55 97.5 F L 54 L 17 123/75 92 L 04/20/20 21:42 98.8 F 71 18 114/67 96 04/20/20 20:51 96 04/20/20 20:49 101 F H 75 18 130/62 93 L 04/20/20 20:07 77 18 128/70 97 04/20/20 18:30 102.5 F H 89 18 148/80 93 L Intake and Output 04/21/20 04/21/20 04/21/20 06:59 14:59 22:59 Other: Voiding Method Diaper # Voids 1 - Exam GENERAL: Sitting up in bed, no acute distress. HEENT: Head is atraumatic, normocephalic. Pupils are equal, round, and reactive to light. Sclerae anicteric. Conjunctivae are clear. Mucus membranes of the mouth are moist. Neck is supple. RESPIRATORY: Clear to auscultation. No rhonchi, crackles, or wheezes. No use of accessory muscles. CARDIOVASCULAR: Regular rate and rhythm. S1 and S2 noted. No systolic or diastolic murmur auscultated. No JVD noted. No S3 or S4 noted. GASTROINTESTINAL: No distention noted. Abdomen soft and round. Normal active bowel sounds auscultated x 4 quadrants. No pain or tenderness noted upon palpat ion. INTEGUMENTARY: Skin warm and dry, no rash EXTREMITIES: Left [id number]-txcs amputation, and right AKA, stumps healed, both warm and pink. NEUROLOGIC: Cranial nerves II-XII intact. PSYCHIATRIC: Awake, alert, and oriented X 3. Appropriate affect. Results CBC & Chem 7: 04/20/20 18:51 04/21/20 06:04 Labs: Abnormal Lab Results - Last 24 Hours (Table) 04/20/20 04/20/20 04/20/20 Range/Units 18:51 18:51 18:51 RBC 3.65 L (3.80-5.40) m/uL Hgb 9.7 L (11.4-16.0) gm/dL Hct 30.3 L (34.0-46.0) % RDW 16.2 H (11.5-15.5) % Lymphocytes # 0.9 L (1.0-4.8) k/uL D-Dimer 0.85 H (<0.60) mg/L FEU Chloride 108 H (98-107) mmol/L Carbon Dioxide 20 L (22-30) mmol/L BUN 29 H (7-17) mg/dL Creatinine 1.23 H (0.52-1.04) mg/dL Est GFR (CKD-EPI)NonAf (60.0-200.0) BUN/Creatinine Ratio (12.00-20.00) Ratio Glucose 135 H (74-99) mg/dL POC Glucose (mg/dL) (75-99) mg/dL Lactate Dehydrogenase 632 H (313-618) U/L C-Reactive Protein 51.3 H (<10.0) mg/L Procalcitonin (0.02-0.09) ng/mL Urine Appearance (Clear) Urine Protein (Negative) Urine Blood (Negative) Ur Leukocyte Esterase (Negative) Urine WBC (0-5) /hpf Urine WBC Clumps (None) /hpf Urine Bacteria (None) /hpf Urine Mucus (None) /hpf Coronavirus (PCR) (Not Detectd) 04/20/20 04/20/20 04/20/20 Range/Units 18:51 19:03 19:04 RBC (3.80-5.40) m/uL Hgb (11.4-16.0) gm/dL Hct (34.0-46.0) % RDW (11.5-15.5) % Lymphocytes # (1.0-4.8) k/uL D-Dimer (<0.60) mg/L FEU Chloride (98-107) mmol/L Carbon Dioxide (22-30) mmol/L BUN (7-17) mg/dL Creatinine (0.52-1.04) mg/dL Est GFR (CKD-EPI)NonAf (60.0-200.0) BUN/Creatinine Ratio (12.00-20.00) Ratio Glucose (74-99) mg/dL POC Glucose (mg/dL) (75-99) mg/dL Lactate Dehydrogenase (313-618) U/L C-Reactive Protein (<10.0) mg/L Procalcitonin 0.13 H (0.02-0.09) ng/mL Urine Appearance Cloudy H (Clear) Urine Protein 1+ H (Negative) Urine Blood Trace H (Negative) Ur Leukocyte Esterase Large H (Negative) Urine WBC 154 H (0-5) /hpf Urine WBC Clumps Few H (None) /hpf Urine Bacteria Many H (None) /hpf Urine Mucus Rare H (None) /hpf Coronavirus (PCR) Detected A (Not Detectd) 04/21/20 04/21/20 04/21/20 Range/Units 06:04 07:30 11:38 RBC (3.80-5.40) m/uL Hgb (11.4-16.0) gm/dL Hct (34.0-46.0) % RDW (11.5-15.5) % Lymphocytes # (1.0-4.8) k/uL D-Dimer (<0.60) mg/L FEU Chloride (98-107) mmol/L Carbon Dioxide (22-30) mmol/L BUN 30.0 H (7-17) mg/dL Creatinine (0.52-1.04) mg/dL Est GFR (CKD-EPI)NonAf 55.3 L (60.0-200.0) BUN/Creatinine Ratio 27.27 H (12.00-20.00) Ratio Glucose 183 H (74-99) mg/dL POC Glucose (mg/dL) 193 H 138 H (75-99) mg/dL Lactate Dehydrogenase (313-618) U/L C-Reactive Protein (<10.0) mg/L Procalcitonin (0.02-0.09) ng/mL Urine Appearance (Clear) Urine Protein (Negative) Urine Blood (Negative) Ur Leukocyte Esterase (Negative) Urine WBC (0-5) /hpf Urine WBC Clumps (None) /hpf Urine Bacteria (None) /hpf Urine Mucus (None) /hpf Coronavirus (PCR) (Not Detectd) Microbiology - Last 24 Hours (Table) 04/20/20 19:04 Urine Culture - Preliminary Urine,Catheterized Thrombosis Risk Factor Assmnt - Choose All That Apply Each Factor Represents 1 point: Age 41-60 years, Medical pt on bed rest, Obesity (BMI >25) Thrombosis Risk Factor Assessment Total Risk Factor Score: 3 Thrombosis Risk Factor Assessment Level: Moderate Risk Assessment and Plan Assessment: Acute,Covid bilateral pneumonia Acute hypoxic respiratory failure secondary to the above Acute UTI in a patient with history of sepsis secondary to acute UTI with Klebsiella ESBL, culture pending. Acute gastroenteritis secondary to Covid Acute on Chronic kidney disease stage III, secondary to dehydration Anemia of chronic disease Diabetes mellitus type 2 History of CVA PAD Dyslipidemia Hypertension Plan: Continue on current medication regime ,monitoring and symptomatic treatment.Continue on Decadron, vitamin C, vitamin D, zinc oxide, Remdesivir, Rocephin and gentle IV fluid hydration. Urine culture pending. Close monitoring of renal function, Y surgery repeat labs ordered for a.m. Pulmonary and infectious disease consults in place with recommendations pending. The impression and plan of care has been dictated as directed. : I performed a history and examination of this patient, discussed the same with the dictator. I agree with the dictator's note ,documented as a scribe. Any additional findings or plans will be noted.
[2020-04-21 17:08] LABS: Glucose,Whole Blood 181 mg/dL (75-99)
--- NOTE | 2020-04-21 17:30 | P.CNPUL ---
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 CT of the chest and chest x-ray showed bilateral pulmonary opacities consistent with covid 19 pneumonitis. Patient was admitted, and this consult was initiated. Surprisingly the patient does not seem to have many pulmonary symptoms as expected considering the severity of the findings on the CT of the chest patient was placed on the Covid 19 cocktails. And we will go ahead and recommend starting remdesivir Review of Systems Constitutional: Low-grade fever, vague aches and pains, HEENT: Negative. Denies loss of sensation of taste or smell. Pulmonary: Dry cough, no shortness of breath. Cardiac: Negative. GI: Nausea and vomiting no diarrhea, no abdominal pain, Genitourinary: Negative. Musculoskeletal: Negative except for minimal aches. Some pain in the right stump. Neurologic: Negative Psychiatric: Negative Hematologic: Negative Skin: Negative Lymphatics: Negative Past Medical History Past Medical History: CVA/TIA, Diabetes Mellitus, Hyperlipidemia, Hypertension, Osteoarthritis (OA), Vascular Disorder Additional Past Medical History / Comment(s): chronic gout, carpal tunnel, TIA 2018-no residual effects. wound on rt heel-has been seen at wound care center 05/28, History of Any Multi-Drug Resistant Organisms: ESBL, Other MDRO Date of last positivie culture/infection: 10/07/19 MDRO Source:: ESBL URINE Past Surgical History: Hysterectomy Additional Past Surgical History / Comment(s): neck surg, left BKA in October 25, & then revision of in December 25. stent rt leg 02/24, bilat lower extremity amputation. RAKA and LBKA Past Anesthesia/Blood Transfusion Reactions: No Reported Reaction Past Psychological History: Depression Additional Psychological History / Comment(s): . Very anxious about current situation Smoking Status: Former smoker Past Alcohol Use History: None Reported Additional Past Alcohol Use History / Comment(s): started smoking age 17, cutdown to maybe a cigarette q few days, does not remember when she last smoked Past Drug Use History: None Reported - Past Family History Mother Additional Family Medical History / Comment(s): at age 47 from heart defect Father Family Medical History: CVA/TIA, Hyperlipidemia, Hypertension Additional Family Medical History / Comment(s): 2 strokes affected brain stem Medications and Allergies Home Medications Medication Instructions Recorded Confirmed Type Citalopram Hydrobromide [CeleXA] 40 mg PO DAILY 04/25/19 04/21/20 History atenoloL [Tenormin] 50 mg PO DAILY 04/25/19 04/21/20 History Clopidogrel Bisulfate [Plavix] 75 mg PO HS 06/01/19 04/21/20 History Baclofen [Lioresal] 10 mg PO BID PRN tab 10/09/19 04/21/20 Rx Gabapentin [Neurontin] 200 mg PO TID #18 cap 10/09/19 04/21/20 Rx Pantoprazole Sodium [Protonix] 40 mg PO DAILY #30 tablet.dr 10/09/19 04/21/20 Rx Allopurinol [Zyloprim] 300 mg PO DAILY 04/21/20 04/21/20 History Ergocalciferol (Vitamin D2) 50,000 unit PO Q30D 04/21/20 04/21/20 History [Drisdol] Losartan Potassium [Cozaar] 50 mg PO DAILY 04/21/20 04/21/20 History Potassium Chloride ER [K-Dur 20] 20 meq PO DAILY 04/21/20 04/21/20 History Temazepam [Restoril] 15 mg PO HS PRN 04/21/20 04/21/20 History amLODIPine [Norvasc] 10 mg PO DAILY 04/21/20 04/21/20 History traMADol HCL 50 mg PO Q8H PRN 04/21/20 04/21/20 History Allergies Allergy/AdvReac Type Severity Reaction Status Date / Time sulfamethoxazole Allergy Itching Verified 04/21/20 09:45 [From Bactrim] trimethoprim [From Bactrim] Allergy Itching Verified 04/21/20 09:45 Physical Exam Vitals: Vital Signs Temp Pulse Pulse Resp BP BP Pulse Ox 04/21/20 13:51 98.4 F 50 L 17 133/71 95 04/21/20 09:43 98.0 F 56 L 20 138/76 95 04/21/20 08:00 56 L 20 04/21/20 05:20 97.5 F L 65 18 124/69 95 04/21/20 01:55 97.5 F L 54 L 17 123/75 92 L 04/20/20 21:42 98.8 F 71 18 114/67 96 04/20/20 20:51 96 04/20/20 20:49 101 F H 75 18 130/62 93 L 04/20/20 20:07 77 18 128/70 97 04/20/20 18:30 102.5 F H 89 18 148/80 93 L Intake and Output 04/21/20 04/21/20 04/21/20 06:59 14:59 22:59 Other: Voiding Method Diaper # Voids 1 5 GENERAL: Revealed a 59-year-old female in no distress. HEENT: PERRLA, EOMI, neck, no neck masses, no JVD. Head : Atraumatic, normocephalic. RESPIRATORY: Symmetrical chest expansion clear breath sounds bilaterally no rhonchi no wheezes.. CARDIOVASCULAR: Normal S1 and S2, no S3 gallop, no murmur.. GASTROINTESTINAL: Soft nontender no megaly no rebound no guarding. INTEGUMENTARY: No rashes. No petechiae. Extremities: Right above-knee amputation and left below-knee amputation noted both unremarkable. Neurologic: Alert oriented 3 focal deficits. Psychiatric: Normal mood affect and normal mental status examination Results - Laboratory Findings CBC and BMP: 04/20/20 18:51 04/21/20 06:04 PT/INR, D-dimer PT 9.7 sec (9.0-12.0) 04/20/20 18:51 INR 0.9 (<1.2) 04/20/20 18:51 D-Dimer 0.85 mg/L FEU (<0.60) H 04/20/20 18:51 Abnormal lab findings: Abnormal Labs 04/20/20 04/20/20 04/20/20 18:51 18:51 18:51 RBC 3.65 L Hgb 9.7 L Hct 30.3 L RDW 16.2 H Lymphocytes # 0.9 L D-Dimer 0.85 H Chloride 108 H Carbon Dioxide 20 L BUN 29 H Creatinine 1.23 H Est GFR (CKD-EPI)NonAf BUN/Creatinine Ratio Glucose 135 H POC Glucose (mg/dL) Lactate Dehydrogenase 632 H C-Reactive Protein 51.3 H Procalcitonin Urine Appearance Urine Protein Urine Blood Ur Leukocyte Esterase Urine WBC Urine WBC Clumps Urine Bacteria Urine Mucus Coronavirus (PCR) 04/20/20 04/20/20 04/20/20 18:51 19:03 19:04 RBC Hgb Hct RDW Lymphocytes # D-Dimer Chloride Carbon Dioxide BUN Creatinine Est GFR (CKD-EPI)NonAf BUN/Creatinine Ratio Glucose POC Glucose (mg/dL) Lactate Dehydrogenase C-Reactive Protein Procalcitonin 0.13 H Urine Appearance Cloudy H Urine Protein 1+ H Urine Blood Trace H Ur Leukocyte Esterase Large H Urine WBC 154 H Urine WBC Clumps Few H Urine Bacteria Many H Urine Mucus Rare H Coronavirus (PCR) Detected A 04/21/20 04/21/20 04/21/20 06:04 07:30 11:38 RBC Hgb Hct RDW Lymphocytes # D-Dimer Chloride Carbon Dioxide BUN 30.0 H Creatinine Est GFR (CKD-EPI)NonAf 55.3 L BUN/Creatinine Ratio 27.27 H Glucose 183 H POC Glucose (mg/dL) 193 H 138 H Lactate Dehydrogenase C-Reactive Protein Procalcitonin Urine Appearance Urine Protein Urine Blood Ur Leukocyte Esterase Urine WBC Urine WBC Clumps Urine Bacteria Urine Mucus Coronavirus (PCR) 04/21/20 17:02 RBC Hgb Hct RDW Lymphocytes # D-Dimer Chloride Carbon Dioxide BUN Creatinine Est GFR (CKD-EPI)NonAf BUN/Creatinine Ratio Glucose POC Glucose (mg/dL) 181 H Lactate Dehydrogenase C-Reactive Protein Procalcitonin Urine Appearance Urine Protein Urine Blood Ur Leukocyte Esterase Urine WBC Urine WBC Clumps Urine Bacteria Urine Mucus Coronavirus (PCR) - Diagnostic Findings CT scan - chest: image reviewed (As noted in HPI.) Assessment and Plan Assessment: Impression: Acute hypoxic respiratory failure secondary to covid 19 pneumonia. Acute urinary tract infection is suspected cultures are pending. Acute on chronic kidney disease stage III. Type 2 diabetes. History of severe peripheral vessel occlusive disease and previous amputations 2 History of CVA. Benign essential hypertension. Dyslipidemia. Acute gastroenteritis most likely related to covid 19 infection Recommendations: Continue present supportive care measures Continue the Covid 19 cocktail. Continue remdesivir Continue Decadron. Continue GI and DVT prophylaxis. We'll continue to follow. Titrate oxygen and maintain O2 saturations above 90% Time with Patient: Greater than 30
[2020-04-21 20:29] LABS: Glucose,Whole Blood 200 mg/dL (75-99)
[2020-04-21] MEDS: TEMAZEPAM 15 MG CAP PO PRN (20:31)
[2020-04-21] MEDS: CITALOPRAM HYDROBROMIDE 20 MG TAB PO SCH (20:31)
[2020-04-21] MEDS: CLOPIDOGREL 75 MG TAB PO SCH (20:31)
--- NOTE | 2020-04-21 22:53 | P.CONS ---
History of Present Illness - Reason for Consult Consult date: 04/21/20 covid19 Requesting physician: Mathew Fall - Chief Complaint vomiting and shortness of breath x few days - History of Present Illness Patient is a 59-year-old female presenting to the ER last night for evaluation of fever body aches vomiting nausea no diarrhea no abdominal pain patient symptom has been going off and on for the last 1 to 2 days in this patient who is currently a resident of [facility] and mention people have been sick the patient on arrival to the ER did have a temperature of 102 F patient did have an O2 sat of 93% on room air currently 96% on 2 L nasal cannula patient denies having any chest pain minimal shortness of breath dry cough which is moderate intensity no further vomiting or diarrhea on presentation to the hospital patient did have a normal white count did have lymphopenia D-dimer was 0.85 creatinine was normal LDH CRP elevated patient did have a positive UA, PCR came back positive patient did have a chest x-ray with nonspecific mild prominent interstitial infiltrate patient did have CT angiogram of the chest that was negative for PE diffuse bilateral moderate pulmonary opacity correlate for COVID-19 pneumonia patient has been admitted to the hospital felt he was consulted for further management, patient also have a positive UA with urine culture showing a gram-negative. Review of Systems Positive point has been mentioned in HPI rest of the systems are negative Past Medical History Past Medical History: CVA/TIA, Diabetes Mellitus, Hyperlipidemia, Hypertension, Osteoarthritis (OA), Vascular Disorder Additional Past Medical History / Comment(s): chronic gout, carpal tunnel, TIA 2018-no residual effects. wound on rt heel-has been seen at wound care center 05/28, History of Any Multi-Drug Resistant Organisms: ESBL, Other MDRO Year Discovered:: 10/07/19 MDRO Source:: ESBL URINE Past Surgical History: Hysterectomy Additional Past Surgical History / Comment(s): neck surg, left BKA in October 25, & then revision of in December 25. stent rt leg 02/24, bilat lower extremity amputation. RAKA and LBKA Past Anesthesia/Blood Transfusion Reactions: No Reported Reaction Past Psychological History: Depression Additional Psychological History / Comment(s): . Very anxious about current situation Smoking Status: Former smoker Past Alcohol Use History: None Reported Additional Past Alcohol Use History / Comment(s): started smoking age 17, cutdown to maybe a cigarette q few days, does not remember when she last smoked Past Drug Use History: None Reported - Past Family History Mother Additional Family Medical History / Comment(s): at age 47 from heart defect Father Family Medical History: CVA/TIA, Hyperlipidemia, Hypertension Additional Family Medical History / Comment(s): 2 strokes affected brain stem Medications and Allergies Home Medications Medication Instructions Recorded Confirmed Type Citalopram Hydrobromide [CeleXA] 40 mg PO DAILY 04/25/19 04/21/20 History atenoloL [Tenormin] 50 mg PO DAILY 04/25/19 04/21/20 History Clopidogrel Bisulfate [Plavix] 75 mg PO HS 06/01/19 04/21/20 History Baclofen [Lioresal] 10 mg PO BID PRN tab 10/09/19 04/21/20 Rx Gabapentin [Neurontin] 200 mg PO TID #18 cap 10/09/19 04/21/20 Rx Pantoprazole Sodium [Protonix] 40 mg PO DAILY #30 tablet.dr 10/09/19 04/21/20 Rx Allopurinol [Zyloprim] 300 mg PO DAILY 04/21/20 04/21/20 History Ergocalciferol (Vitamin D2) 50,000 unit PO Q30D 04/21/20 04/21/20 History [Drisdol] Losartan Potassium [Cozaar] 50 mg PO DAILY 04/21/20 04/21/20 History Potassium Chloride ER [K-Dur 20] 20 meq PO DAILY 04/21/20 04/21/20 History Temazepam [Restoril] 15 mg PO HS PRN 04/21/20 04/21/20 History amLODIPine [Norvasc] 10 mg PO DAILY 04/21/20 04/21/20 History traMADol HCL 50 mg PO Q8H PRN 04/21/20 04/21/20 History Allergies Allergy/AdvReac Type Severity Reaction Status Date / Time sulfamethoxazole Allergy Itching Verified 04/21/20 09:45 [From Bactrim] trimethoprim [From Bactrim] Allergy Itching Verified 04/21/20 09:45 Physical Exam Vitals: Vital Signs Temp Pulse Resp BP Pulse Ox 04/21/20 17:45 98.6 F 60 17 146/70 96 04/21/20 13:51 98.4 F 50 L 17 133/71 95 04/21/20 09:43 98.0 F 56 L 20 138/76 95 04/21/20 08:00 56 L 20 04/21/20 05:20 97.5 F L 65 18 124/69 95 04/21/20 01:55 97.5 F L 54 L 17 123/75 92 L 04/20/20 21:42 98.8 F 71 18 114/67 96 Intake and Output 04/21/20 04/21/20 04/21/20 06:59 14:59 22:59 Other: Voiding Method Diaper Diaper # Voids 1 5 GENERAL DESCRIPTION: Middle-aged male lying in bed, no distress. No tachypnea or accessory muscle of respiration use. HEENT: Shows Pallor , no scleral icterus. Oral mucous membrane is dry. NECK: Trachea central, no thyromegaly. LUNGS: Unlabored breathing. Decrease intensity of breath sounds. No wheeze or crackle. HEART: S1, S2, regular rate and rhythm. ABDOMEN: Soft, no tenderness , guarding or rigidity EXTREMITIES: Patient did have bilateral lower leg amputation stumps are curr ently healed. SKIN: No rash, no masses palpable. NEUROLOGICAL: The patient is awake, alert, oriented x3, mood and affect normal. Results CBC & Chem 7: 04/20/20 18:51 04/21/20 06:04 Labs: Abnormal Lab Results - Last 24 Hours (Table) 04/20/20 04/21/20 04/21/20 Range/Units 18:51 06:04 07:30 BUN 30.0 H (9.0-27.0) mg/dL Est GFR (CKD-EPI)NonAf 55.3 L (60.0-200.0) BUN/Creatinine Ratio 27.27 H (12.00-20.00) Ratio Glucose 183 H (70-110) mg/dL POC Glucose (mg/dL) 193 H (75-99) mg/dL Procalcitonin 0.13 H (0.02-0.09) ng/mL 04/21/20 04/21/20 04/21/20 Range/Units 11:38 17:02 20:23 BUN (9.0-27.0) mg/dL Est GFR (CKD-EPI)NonAf (60.0-200.0) BUN/Creatinine Ratio (12.00-20.00) Ratio Glucose (70-110) mg/dL POC Glucose (mg/dL) 138 H 181 H 200 H (75-99) mg/dL Procalcitonin (0.02-0.09) ng/mL Microbiology - Last 24 Hours (Table) 04/20/20 18:51 Blood Culture - Preliminary Blood No Growth after 24 hours 04/20/20 19:04 Urine Culture - Preliminary Urine,Catheterized Gram Neg Bacilli Assessment and Plan Assessment: 1-patient presented hospital predominantly with GI symptoms with worsening nausea and vomiting in this patient also have a mild cough significant finding on the CT angiogram of the chest with concern for acute COVID-19 infection [id number] urinary tract infection (1) COVID-19 Current Visit: Yes Status: Acute Code(s): U07.1 - COVID-19 SNOMED Code(s): 024796216 (2) UTI (urinary tract infection) Current Visit: Yes Status: Acute Code(s): N39.0 - URINARY TRACT INFECTION, SITE NOT SPECIFIED SNOMED Code(s): 62004326 Plan: 1-patient was started on remdesivir 200 mg day 1 followed by 100 milligrams daily x4 more doses 2-dexamethasone 6 mg daily along with Lovenox and zinc sulfate 3-droplet isolation and respiratory support 4-Rocephin 1 g IV every 24 hours for UTI We will follow on clinical condition and cultures to further adjust medication if needed Thank you for this consultation we will follow the patient along with you Time with Patient: Greater than 30
[2020-04-22 07:05] LABS: Glucose,Whole Blood 129 mg/dL (75-99)
[2020-04-22 07:16] LABS: Basophils % (A) 0 %; Eosinophils % (A) 0 %; HCT 32.7 % (34.0-46.0); HGB 10.6 gm/dL (11.4-16.0); Lymphocytes # (A) 0.6 k/uL (1.0-4.8); Lymphocytes % (A) 9 %; MCH 26.8 pg (25.0-35.0); MCHC 32.3 g/dL (31.0-37.0); MCV 82.9 fL (80.0-100.0); Mean Platelet Volume 8.3; Monocytes # (A) 0.3 k/uL (0-1.0); Monocytes % (A) 4 %; Neutrophils # (A) 6.2 k/uL (1.3-7.7); Neutrophils % (A) 87 %; Platelet Count 275 k/uL (150-450); RBC 3.95 m/uL (3.80-5.40); RDW 15.9 % (11.5-15.5); WBC 7.2 k/uL (3.8-10.6)
[2020-04-22] MEDS: INSULIN ASPART (NovoLOG) 100 UNIT/ML VIAL SQ SCH ×4 (07:35→19:58)
[2020-04-22] MEDS ORDERED: ONDANSETRON 4 MG/2 ML VIAL IVP PRN (08:11)
[2020-04-22] MEDS: BACLOFEN 10 MG TAB PO PRN ×2 (08:26→19:58)
[2020-04-22] MEDS: ENOXAPARIN 40 MG/0.4 ML SYRINGE SQ SCH (08:26)
[2020-04-22] MEDS: DEXAMETHASONE SOD PHOSPHATE 10 MG/ML 1 ML VIAL IV SCH (08:26)
[2020-04-22] MEDS: PANTOPRAZOLE 40 MG TABLET PO SCH (08:26)
[2020-04-22] MEDS: CHOLECALCIFEROL 1,000 UNIT TAB PO SCH (08:27)
[2020-04-22] MEDS: ASCORBIC ACID 500 MG TAB PO SCH ×2 (08:27→19:59)
[2020-04-22] MEDS: ZINC SULFATE 220 MG CAP PO SCH (08:27)
[2020-04-22] MEDS: GABAPENTIN 100 MG CAP PO SCH ×3 (08:27→19:59)
[2020-04-22] MEDS: CITALOPRAM HYDROBROMIDE 20 MG TAB PO SCH (08:27)
[2020-04-22] MEDS: atenoloL 50 MG TAB PO SCH (08:27)
[2020-04-22] MEDS: ACETAMINOPHEN TAB 325 MG TAB PO PRN ×2 (08:29→19:59)
[2020-04-22 12:08] LABS: Glucose,Whole Blood 146 mg/dL (75-99)
--- NOTE | 2020-04-22 12:34 | P.PN ---
Subjective Progress Note Date: 04/22/20 This is a 59-year-old female presented to the ER with history of fever, nausea vomiting , body aches, dry cough, right stump pain, in a patient with history of right stump stent feb [address] Saez, CVA/TIA, diabetes mellitus, hyperlipidemia, hypertension, osteoarthritis, vascular disorder, chronic gout, depression, former smoker and multiple other medical issues. Denies chest pain, palpitations or shortness of breath, O2 sat on admission, in the 90s on room air. Denies bleeding. Currently afebrile with T-max 102.5. Blood and urine cultures pending. Chest x-ray reported nonspecific mildly prominent right interstitial opacities. Chest CTA reported bilateral moderate pulmonary opacities, concerning for coated pneumonia- groundglass in the dependent upper and lower lobes bilaterally with additional diffuse mild patchy groundglass opacities, no pneumothorax, no pulmonary embolism, multilevel moderate thoracic spondylosis. Tested positive for mac virus. Fair time 173.4, 182.2, LDH 632, down to 233, CRP 51.3, d-dimer 0.85, pro calcitonin 0.13. UA reported large leukocytes, 150 for urine WBCs, negative for nitrates, many bacteria. On admission BUN 29 creatinine 1.23, with IV fluid hydration currently 30/1.1. Blood sugars mildly elevated. Lactic acid 1.4. Hemoglobin 9.7, platelets 243. Normal WBC. Antibiotics and IV fluid hydration initiated in the ER. : 20 labs pending. Maintained on Covid regimen, including Remdesivir. Maintaining O2 sats in the 90s on room air. Urine culture reporting gram- negative bacilli .Afebrile, normal WBC. BMP pending. Complains of nausea. Denies emesis. Denies diarrhea. Reports minimal productive cough. Objective - Vital Signs Vital signs: Vital Signs Temp 98.4 F 04/22/20 10:00 Pulse 62 04/22/20 10:00 Resp 18 04/22/20 10:00 BP 125/63 04/22/20 10:00 Pulse Ox 94 L 04/22/20 10:00 Intake & Output 04/21/20 04/22/20 04/22/20 18:59 06:59 18:59 Output Total 800 Balance -800 Output: Urine 800 Other: Voiding Method Diaper Diaper Diaper # Voids 5 - Exam - Exam GENERAL: Sitting up in bed, no acute distress. HEENT: Head is atraumatic, normocephalic. Pupils are equal, round, and reactive to light. Sclerae anicteric. Conjunctivae are clear. Mucus membranes of the mout h are moist. NECK: Neck is supple, no JVD.. RESPIRATORY: Clear to auscultation. No rhonchi, crackles, or wheezes. No use of accessory muscles. CARDIOVASCULAR: Regular rate and rhythm. S1 and S2 noted. No systolic or diastolic murmur auscultated. No S3 or S4 noted. GASTROINTESTINAL: Soft, No distention noted, nontender. Normal active bowel sounds auscultated. INTEGUMENTARY: Skin warm and dry, no rash EXTREMITIES: Left [id number] amputation, and right AKA, stumps healed, both warm and pink. NEUROLOGIC: Cranial nerves II-XII intact. PSYCHIATRIC: Awake, alert, and oriented X 3. Appropriate affect. - Labs CBC & Chem 7: 04/22/20 06:28 04/21/20 06:04 Labs: Abnormal Lab Results - Last 24 Hours (Table) 04/21/20 04/21/20 04/22/20 Range/Units 17:02 20:23 06:28 Hgb 10.6 L (11.4-16.0) gm/dL Hct 32.7 L (34.0-46.0) % RDW 15.9 H (11.5-15.5) % Lymphocytes # 0.6 L (1.0-4.8) k/uL POC Glucose (mg/dL) 181 H 200 H (75-99) mg/dL 04/22/20 04/22/20 Range/Units 07:02 12:05 Hgb (11.4-16.0) gm/dL Hct (34.0-46.0) % RDW (11.5-15.5) % Lymphocytes # (1.0-4.8) k/uL POC Glucose (mg/dL) 129 H 146 H (75-99) mg/dL Microbiology - Last 24 Hours (Table) 04/20/20 19:03 Blood Culture - Preliminary Blood No Growth after 24 hours 04/20/20 18:51 Blood Culture - Preliminary Blood No Growth after 24 hours 04/20/20 19:04 Urine Culture - Preliminary Urine,Catheterized Gram Neg Bacilli Assessment and Plan Assessment: Acute,Covid bilateral pneumonia Acute hypoxic respiratory failure secondary to the above, improving Acute UTI in a patient with history of sepsis secondary to acute UTI with Klebsiella ESBL, culture reporting gram-negative Acute gastroenteritis secondary to Covid Acute on Chronic kidney disease stage III, secondary to dehydration Anemia of chronic disease Diabetes mellitus type 2 History of CVA PAD Dyslipidemia Hypertension Plan: Continue on current medication regime ,monitoring and symptomatic treatment.Zofran ordered .maintain Lovenox, Decadron, vitamin C, vitamin D, zinc oxide, Remdesivir, Rocephin and gentle IV fluid hydration. Final Urine culture pending. Close monitoring of renal function, lytes, repeat labs ordered for a.m. increase ambulation as tolerated. The impression and plan of care has been dictated as directed. : I performed a history and examination of this patient, discussed the same with the dictator. I agree with the dictator's note ,documented as a scribe. Any additional findings or plans will be noted.
[2020-04-22 13:23] LABS: African American GFR (CKD) 71.9 (60.0-200.0); Anion Gap 11.9 mmol/L (4.00-12.00); Calcium 9.3 mg/dL (8.7-10.3); Carbon Dioxide 21.1 mmol/L (21.6-31.8); Non-African American GFR(CKD) 62.1 (60.0-200.0); Potassium 4.4 mmol/L (3.5-5.5)
--- NOTE | 2020-04-22 14:23 | P.PN ---
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 CT of the chest and chest x-ray showed bilateral pulmonary opacities consistent with covid 19 pneumonitis. Patient was admitted, and this consult was initiated. Surprisingly the patient does not seem to have many pulmonary symptoms as expected considering the severity of the findings on the CT of the chest patient was placed on the Covid 19 cocktails. And we will go ahead and recommend starting remdesivir On 04/22/2020 patient seen in follow-up on Gen. medical surgical floor, today's of Remdesivir date 2 of treatment, she denies any worsening shortness of breath, lung sounds reveal diffuse coarse crackles in bilateral lungs, she is on room air, her pulse ox is 94%, she is afebrile, hemodynamically she stable, reports minimal productive cough, complains of nausea, no emesis, urine culture was positive for gram-negative bacilli, blood cultures show no growth. Patient is Rocephin for empiric antibiotic coverage, she is on prophylactic Lovenox, she is on IV Decadron, and vitamins. Today's labs have been reviewed, showing white blood cell, 7.2, hemoglobin 10.6, she still lymphopenic, with lymphocyte count of 0.6, sodium of 141, potassium is 4.4, chloride is 108, CO2 is 21, BUN of 29 creatinine is 1. Objective - Vital Signs Vital signs: Vital Signs Temp 98.4 F 04/22/20 10:00 Pulse 62 04/22/20 10:00 Resp 18 04/22/20 10:00 BP 125/63 04/22/20 10:00 Pulse Ox 94 L 04/22/20 10:00 Intake & Output 04/21/20 04/22/20 04/22/20 18:59 06:59 18:59 Output Total 800 Balance -800 Output: Urine 800 Other: Voiding Method Diaper Diaper Diaper # Voids 5 - Exam GENERAL EXAM: Alert, pleasant, 59-year-old white female, on room air, pulse oximetry 94% comfortable in no apparent distress. HEAD: Normocephalic/atraumatic. EYES: Normal reaction of pupils, equal size. Conjunctiva pink, sclera white. NOSE: Clear with pink turbinates. THROAT: No erythema or exudates. NECK: No masses, no JVD, no thyroid enlargement, no adenopathy. CHEST: No chest wall deformity. Symmetrical expansion. LUNGS: Equal air entry with no crackles, wheeze, rhonchi or dullness. CVS: Regular rate and rhythm, normal S1 and S2, no gallops, no murmurs, no rubs ABDOMEN: Soft, nontender. No hepatosplenomegaly, normal bowel sounds, no guarding or rigidity. EXTREMITIES: No clubbing, no edema, no cyanosis, 2+ pulses and upper and lower extremities. MUSCULOSKELETAL: Muscle strength and tone normal. SPINE: No scoliosis or deformity SKIN: No rashes CENTRAL NERVOUS SYSTEM: Alert and oriented -3. No focal deficits, tone is normal in all 4 extremities. PSYCHIATRIC: Alert and oriented -3. Appropriate affect. Intact judgment and insight. - Labs CBC & Chem 7: 04/22/20 06:28 04/22/20 06:28 Labs: Abnormal Lab Results - Last 24 Hours (Table) 04/21/20 04/21/20 04/22/20 Range/Units 17:02 20:23 06:28 Hgb 10.6 L (11.4-16.0) gm/dL Hct 32.7 L (34.0-46.0) % RDW 15.9 H (11.5-15.5) % Lymphocytes # 0.6 L (1.0-4.8) k/uL Carbon Dioxide (21.6-31.8) mmol/L BUN (9.0-27.0) mg/dL BUN/Creatinine Ratio (12.00-20.00) Ratio Glucose (70-110) mg/dL POC Glucose (mg/dL) 181 H 200 H (75-99) mg/dL 04/22/20 04/22/20 04/22/20 Range/Units 06:28 07:02 12:05 Hgb (11.4-16.0) gm/dL Hct (34.0-46.0) % RDW (11.5-15.5) % Lymphocytes # (1.0-4.8) k/uL Carbon Dioxide 21.1 L (21.6-31.8) mmol/L BUN 29.0 H (9.0-27.0) mg/dL BUN/Creatinine Ratio 29.00 H (12.00-20.00) Ratio Glucose 127 H (70-110) mg/dL POC Glucose (mg/dL) 129 H 146 H (75-99) mg/dL Microbiology - Last 24 Hours (Table) 04/20/20 19:03 Blood Culture - Preliminary Blood No Growth after 24 hours 04/20/20 18:51 Blood Culture - Preliminary Blood No Growth after 24 hours 04/20/20 19:04 Urine Culture - Preliminary Urine,Catheterized Gram Neg Bacilli Assessment and Plan Plan: Assessment: #1. Acute hypoxic respiratory failure secondary to acute COVID 19 pneumonitis, patient was started on Remdesivir, on 04/21/2020, in addition to IV Decadron 6 mg daily, prophylactic dose of Lovenox, and vitamins #2. Acute urinary tract infection, with urine cultures positive for gram- negative bacilli, final culture is pending, patient is on Rocephin for empiric antibiotic coverage #3. Acute on chronic kidney disease, stage III at baseline #4. Type 2 diabetes mellitus #5. History of severe peripheral vascular occlusive disease and previous amputations 2 #6. History of CVA #7. Benign essential hypertension #8. Dyslipidemia #9. Acute gastroenteritis related to COVID 19 infection #10. Elevated d-dimer of 0.83, with no evidence of DVT on the right lower extremity Doppler, and no evidence of PE on CT angios of the chest Plan: Continue with the Remdesivir treatment, today is day 2 of treatment, continue with IV dexamethasone, continue current dose of prophylactic Lovenox, no worsening dyspnea, still reports some mild nausea, no emesis, vital signs are stable, overall improving, continue with Rocephin for empiric antibiotic. We'll continue to follow I performed a history & physical examination of the patient and discussed their management with my nurse practitioner, Nanette Andujar. I reviewed the nurse practitioner's note and agree with the documented findings and plan of care. Lung sounds are positive for diminished breath sounds. The findings and the impression was discussed with the patient. I attest to the documentation by the nurse practitioner. Time with Patient: Less than 30
[2020-04-22] MEDS: REMDESIVIR 100 MG in SODIUM CHLORIDE 0.9% 250 ML IVPB SCH (15:11)
[2020-04-22 17:34] LABS: Glucose,Whole Blood 207 mg/dL (75-99)
[2020-04-22 19:49] LABS: Glucose,Whole Blood 242 mg/dL (75-99)
[2020-04-22] MEDS: TEMAZEPAM 15 MG CAP PO PRN (19:59)
[2020-04-22] MEDS: CLOPIDOGREL 75 MG TAB PO SCH (19:59)
--- NOTE | 2020-04-22 22:57 | PN ---
PROGRESS NOTE DATE OF SERVICE: 04/22/2020 REASON FOR FOLLOWUP: COVID-19 pneumonia. INTERVAL HISTORY: The patient is currently afebrile. The patient is breathing more comfortably. The patient denies having any chest pain or shortness of breath. Minimal cough; no worsening. No nausea, no vomiting. No abdominal pain or diarrhea. PHYSICAL EXAMINATION: Blood pressure is 124/65, pulse of 56, temperature 98.2. She is 91% on room air. General description is a middle-aged female lying in bed in no distress. RESPIRATORY SYSTEM: Unlabored breathing with decreased intensity of breath sounds. No wheeze. HEART: S1, S2. Regular rate and rhythm. ABDOMEN: Soft. No tenderness. LABS: Hemoglobin is 10.6, white count 7.2, BUN of 29, creatinine 1.0. DIAGNOSTIC IMPRESSION AND PLAN: Patient with acute COVID-19 infection in this patient who is currently on day 2 of remdesivir in addition to the Decadron, Lovenox and zinc sulfate; to continue and continue with respiratory support and monitor clinical course closely. MMODL / IJN: [id number] /
[2020-04-23 07:00] LABS: Glucose,Whole Blood 130 mg/dL (75-99)
[2020-04-23] MEDS: INSULIN ASPART (NovoLOG) 100 UNIT/ML VIAL SQ SCH ×4 (07:13→21:33)
[2020-04-23] MEDS: ENOXAPARIN 40 MG/0.4 ML SYRINGE SQ SCH (09:25)
[2020-04-23] MEDS: atenoloL 50 MG TAB PO SCH (09:26)
[2020-04-23] MEDS: DEXAMETHASONE SOD PHOSPHATE 10 MG/ML 1 ML VIAL IV SCH (09:26)
[2020-04-23] MEDS: BACLOFEN 10 MG TAB PO PRN ×2 (09:26→21:34)
[2020-04-23] MEDS: GABAPENTIN 100 MG CAP PO SCH ×3 (09:26→21:34)
[2020-04-23] MEDS: ZINC SULFATE 220 MG CAP PO SCH (09:26)
[2020-04-23] MEDS: PANTOPRAZOLE 40 MG TABLET PO SCH (09:26)
[2020-04-23] MEDS: CITALOPRAM HYDROBROMIDE 20 MG TAB PO SCH (09:26)
[2020-04-23] MEDS: CHOLECALCIFEROL 1,000 UNIT TAB PO SCH (09:26)
[2020-04-23] MEDS: ASCORBIC ACID 500 MG TAB PO SCH ×2 (09:26→21:33)
[2020-04-23] MEDS: ACETAMINOPHEN TAB 325 MG TAB PO PRN ×2 (09:27→21:34)
[2020-04-23 11:16] LABS: Glucose,Whole Blood 130 mg/dL (75-99)
--- NOTE | 2020-04-23 13:35 | P.PN ---
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 CT of the chest and chest x-ray showed bilateral pulmonary opacities consistent with covid 19 pneumonitis. Patient was admitted, and this consult was initiated. Surprisingly the patient does not seem to have many pulmonary symptoms as expected considering the severity of the findings on the CT of the chest patient was placed on the Covid 19 cocktails. And we will go ahead and recommend starting remdesivir On 04/22/2020 patient seen in follow-up on Gen. medical surgical floor, today's of Remdesivir date 2 of treatment, she denies any worsening shortness of breath, lung sounds reveal diffuse coarse crackles in bilateral lungs, she is on room air, her pulse ox is 94%, she is afebrile, hemodynamically she stable, reports minimal productive cough, complains of nausea, no emesis, urine culture was positive for gram-negative bacilli, blood cultures show no growth. Patient is Rocephin for empiric antibiotic coverage, she is on prophylactic Lovenox, she is on IV Decadron, and vitamins. Today's labs have been reviewed, showing white blood cell, 7.2, hemoglobin 10.6, she still lymphopenic, with lymphocyte count of 0.6, sodium of 141, potassium is 4.4, chloride is 108, CO2 is 21, BUN of 29 creatinine is 1. The patient is seen today 04/23/2020 in follow-up on the regular medical floor. This is day #3 of her Remdesivir. Continued on Lovenox and Decadron. She is currently awake and alert in no acute distress. No shortness of breath, cough or congestion. Maintaining good O2 saturation in the mid 90s on 2 L/m per nasal cannula. She's afebrile. Urine cultures positive for Klebsiella. Blood cultures reveal no growth. Blood glucose 130. Currently on antibiotics in the form of ceftriaxone. Objective - Vital Signs Vital signs: Vital Signs Temp 98.4 F 04/23/20 09:40 Pulse 56 L 04/23/20 09:40 Resp 18 04/23/20 09:40 BP 145/76 04/23/20 09:40 Pulse Ox 95 04/23/20 09:40 Intake & Output 04/22/20 04/23/20 04/23/20 18:59 06:59 18:59 Output Total 200 Balance -200 Output: Urine 200 Other: Voiding Method Diaper Diaper # Voids 1 1 - Exam GENERAL EXAM: Alert, pleasant, 59-year-old male, on 2 L nasal cannula, pulse oximetry 94% comfortable in no apparent distress. HEAD: Normocephalic/atraumatic. EYES: Normal reaction of pupils, equal size. Conjunctiva pink, sclera white. NOSE: Clear with pink turbinates. THROAT: No erythema or exudates. NECK: No masses, no JVD, no thyroid enlargement, no adenopathy. CHEST: No chest wall deformity. Symmetrical expansion. LUNGS: Equal air entry with no crackles, wheeze, rhonchi or dullness. CVS: Regular rate and rhythm, normal S1 and S2, no gallops, no murmurs, no rubs ABDOMEN: Soft, nontender. No hepatosplenomegaly, normal bowel sounds, no guarding or rigidity. EXTREMITIES: No clubbing, no edema, no cyanosis, 2+ pulses and upper and lower extremities. MUSCULOSKELETAL: Muscle strength and tone normal. SPINE: No scoliosis or deformity SKIN: No rashes CENTRAL NERVOUS SYSTEM: Alert and oriented -3. No focal deficits, tone is normal in all 4 extremities. PSYCHIATRIC: Alert and oriented -3. Appropriate affect. Intact judgment and insight. - Labs CBC & Chem 7: 04/22/20 06:28 04/22/20 06:28 Labs: Abnormal Lab Results - Last 24 Hours (Table) 04/22/20 04/22/20 04/23/20 Range/Units 17:32 19:47 06:55 POC Glucose (mg/dL) 207 H 242 H 130 H (75-99) mg/dL 04/23/20 Range/Units 11:14 POC Glucose (mg/dL) 130 H (75-99) mg/dL Microbiology - Last 24 Hours (Table) 04/20/20 19:03 Blood Culture - Preliminary Blood No Growth after 48 hours 04/20/20 18:51 Blood Culture - Preliminary Blood No Growth after 48 hours 04/20/20 19:04 Urine Culture - Preliminary Urine,Catheterized Klebsiella pneumoniae Assessment and Plan Assessment: #1. Acute hypoxic respiratory failure secondary to acute COVID 19 pneumonitis, patient was started on Remdesivir, on 04/21/2020, in addition to IV Decadron 6 mg daily, prophylactic dose of Lovenox, and vitamins #2. Acute urinary tract infection, with urine cultures positive for Klebsiella pneumonia in a patient is on Rocephin for empiric antibiotic coverage #3. Acute on chronic kidney disease, stage III at baseline #4. Type 2 diabetes mellitus #5. History of severe peripheral vascular occlusive disease and previous amputations 2 #6. History of CVA #7. Benign essential hypertension #8. Dyslipidemia #9. Acute gastroenteritis related to COVID 19 infection #10. Elevated d-dimer of 0.83, with no evidence of DVT on the right lower extremity Doppler, and no evidence of PE on CT angios of the chest Plan: The patient was seen and evaluated by Dr. Tesfaye She remains stable from the pulmonary standpoint Continue the current treatment plan I, the cosigning physician, performed a history & physical examination of the patient. Lungs sounds are clear. Maintaining good O2 saturations in the 90s on 2 L/m per nasal cannula. I discussed the assessment and plan of care with my nurse practitioner, Yulissa Bradley. I attest to the above note as dictated by her.
--- NOTE | 2020-04-23 16:13 | P.PN ---
Subjective Progress Note Date: 04/23/20 This is a 59-year-old female presented to the ER with history of fever, nausea vomiting , body aches, dry cough, right stump pain, in a patient with history of right stump stent feb [address] Saez, CVA/TIA, diabetes mellitus, hyperlipidemia, hypertension, osteoarthritis, vascular disorder, chronic gout, depression, former smoker and multiple other medical issues. Denies chest pain, palpitations or shortness of breath, O2 sat on admission, in the 90s on room air. Denies bleeding. Currently afebrile with T-max 102.5. Blood and urine cultures pending. Chest x-ray reported nonspecific mildly prominent right interstitial opacities. Chest CTA reported bilateral moderate pulmonary opacities, concerning for coated pneumonia- groundglass in the dependent upper and lower lobes bilaterally with additional diffuse mild patchy groundglass opacities, no pneumothorax, no pulmonary embolism, multilevel moderate thoracic spondylosis. Tested positive for mac virus. Fair time 173.4, 182.2, LDH 632, down to 233, CRP 51.3, d-dimer 0.85, pro calcitonin 0.13. UA reported large leukocytes, 150 for urine WBCs, negative for nitrates, many bacteria. On admission BUN 29 creatinine 1.23, with IV fluid hydration currently 30/1.1. Blood sugars mildly elevated. Lactic acid 1.4. Hemoglobin 9.7, platelets 243. Normal WBC. Antibiotics and IV fluid hydration initiated in the ER. 12:15 20 labs pending. Maintained on Covid regimen, including Remdesivir. Maintaining O2 sats in the 90s on room air. Urine culture reporting gram- negative bacilli .Afebrile, normal WBC. BMP pending. Complains of nausea. Denies emesis. Denies diarrhea. Reports minimal productive cough. 04/23/2020 urine culture reporting Klebsiella pneumoniae with ESBL. Antibiotics adjusted to ertapenem. Preliminary blood cultures no growth at 48 hours. Afebrile, normal WBC. Maintained on Covid regimen, including Remdes ivir,maintaining O2 sats in the 90s on 2 L nasal cannula. Reports minimal cough, no nausea no emesis nor diarrhea. Objective - Vital Signs Vital signs: Vital Signs Temp 98.4 F 04/23/20 09:40 Pulse 56 L 04/23/20 09:40 Resp 18 12/16/20 09:40 BP 145/76 04/23/20 09:40 Pulse Ox 95 04/23/20 09:40 Intake & Output 04/22/20 04/23/20 04/23/20 18:59 06:59 18:59 Output Total 200 Balance -200 Output: Urine 200 Other: Voiding Method Diaper # Voids 1 1 - Exam - Exam GENERAL: Lying in bed,NAD HEENT: Head atraumatic, normocephalic. Pupils are equal, round, and reactive to light. Sclerae anicteric. Conjunctivae are clear. Mucus membranes of the mouth are moist. NECK: Neck is supple, no JVD.. RESPIRATORY: Clear to auscultation. No rhonchi, crackles, or wheezes. CARDIOVASCULAR: Regular rate and rhythm. S1 and S2 noted. No systolic or brennan tolic murmur auscultated. No S3 or S4 noted. GASTROINTESTINAL: Soft, No distention noted, nontender. Normal active bowel sounds auscultated. INTEGUMENTARY: Skin warm and dry, no rash EXTREMITIES: Left [id number] amputation, and right AKA, stumps healed, both warm and pink. NEUROLOGIC: Cranial nerves II-XII intact. PSYCHIATRIC: Awake, alert, and oriented X 3. Appropriate affect. - Labs CBC & Chem 7: 04/22/20 06:28 04/22/20 06:28 Labs: Abnormal Lab Results - Last 24 Hours (Table) 04/22/20 04/22/20 04/22/20 Range/Units 06:28 12:05 17:32 Carbon Dioxide 21.1 L (21.6-31.8) mmol/L BUN 29.0 H (9.0-27.0) mg/dL BUN/Creatinine Ratio 29.00 H (12.00-20.00) Ratio Glucose 127 H (70-110) mg/dL POC Glucose (mg/dL) 146 H 207 H (75-99) mg/dL 04/22/20 04/23/20 Range/Units 19:47 06:55 Carbon Dioxide (21.6-31.8) mmol/L BUN (9.0-27.0) mg/dL BUN/Creatinine Ratio (12.00-20.00) Ratio Glucose (70-110) mg/dL POC Glucose (mg/dL) 242 H 130 H (75-99) mg/dL Microbiology - Last 24 Hours (Table) 04/20/20 19:03 Blood Culture - Preliminary Blood No Growth after 48 hours 04/20/20 18:51 Blood Culture - Preliminary Blood No Growth after 48 hours 04/20/20 19:04 Urine Culture - Preliminary Urine,Catheterized Klebsiella pneumoniae Assessment and Plan Assessment: Acute,Covid bilateral pneumonia Acute hypoxic respiratory failure secondary to the above, improving Acute UTI in a patient with history of sepsis secondary to acute UTI with Klebsiella ESBL Acute gastroenteritis secondary to Covid Acute on Chronic kidney disease stage III, secondary to dehydration Anemia of chronic disease Diabetes mellitus type 2 History of CVA PAD Dyslipidemia Hypertension Plan: Continue on current medication regime ,monitoring and symptomatic treatment.antibiotics/PICCas per ID .continue Lovenox, Decadron, vitamin C, vitamin D, zinc oxide, Remdesivir and gentle IV fluid hydration. Close monitoring of renal function, lytes, repeat labs ordered for a.m. increase ambulation as tolerated. The impression and plan of care has been dictated as directed. : I performed a history and examination of this patient, discussed the same with the dictator. I agree with the dictator's note ,documented as a scribe. Any additional findings or plans will be noted.
[2020-04-23 16:16] LABS: Glucose,Whole Blood 209 mg/dL (75-99)
[2020-04-23 16:27] LABS: Appearance,Urine Cloudy (Clear); Bacteria,Urine Many /hpf; Bilirubin,Urine Negative (Negative); Blood,Urine Negative (Negative); Color,Urine Yellow; Glucose,Urine (UA) Negative (Negative); Ketones,Urine Negative (Negative); Leukocyte Esterase,Urine Large (Negative); Mucus,Urine Occasional /hpf; Nitrite,Urine Positive (Negative); PH, Urine 6.5 (5.0-8.0); Protein,Urine Trace (Negative); RBC,Urine 8 /hpf (0-5); Specific Gravity,Urine 1.018 (1.001-1.035); Squamous Epithelial Cell,Urine 2 /hpf (0-4); Urobilinogen,Urine <2.0 mg/dL (<2.0); WBC,Urine >182 /hpf (0-5)
[2020-04-23] MEDS: REMDESIVIR 100 MG in SODIUM CHLORIDE 0.9% 250 ML IVPB SCH (17:27)
[2020-04-23] MEDS: ERTAPENEM 1 GM in SODIUM CHLORIDE 0.9% 50 ML IVPB SCH (19:12)
[2020-04-23 20:19] LABS: Glucose,Whole Blood 224 mg/dL (75-99)
[2020-04-23] MEDS: CLOPIDOGREL 75 MG TAB PO SCH (21:33)
[2020-04-23] MEDS: TEMAZEPAM 15 MG CAP PO PRN (21:34)
--- NOTE | 2020-04-23 23:23 | PN ---
PROGRESS NOTE DATE OF SERVICE: 04/23/2020 REASON FOR FOLLOWUP: 1. COVID-19 pneumonia. 2. UTI. INTERVAL HISTORY: The patient is currently afebrile. The patient is breathing comfortably currently on room air. Denies having any chest pain or shortness of breath. Minimal cough. No abdominal pain. No diarrhea. The patient denies any symptoms currently, did have external catheter. PHYSICAL EXAMINATION: Blood pressure 152/79 with a pulse of 55, temperature 98.3. She is 94% on room air. General description is a middle-aged female lying in bed in no distress. RESPIRATORY SYSTEM: Unlabored breathing, clear to auscultation anteriorly. HEART: S1, S2. Regular rate and rhythm. ABDOMEN: Soft, no tenderness. LABS: She did have a repeat UA obtained, however, this shows large leukocyte esterase, more than 182 WBC. DIAGNOSTIC IMPRESSION AND PLAN: 1. Patient with urinary tract infection, now with ESBL Klebsiella. Antibiotic adjusted to Invanz 1 gram daily while waiting for to finalize. 2. Patient with COVID-19 pneumonia, clinically responded to remdesivir, Decadron, zinc sulfate to continue along respiratory support. MMODL / IJN: [id number] /
[2020-04-24 06:59] LABS: Basophils % (A) 1 %; Eosinophils % (A) 1 %; HCT 29.4 % (34.0-46.0); HGB 9.9 gm/dL (11.4-16.0); Lymphocytes % (A) 26 %; MCH 28.1 pg (25.0-35.0); MCHC 33.6 g/dL (31.0-37.0); MCV 83.6 fL (80.0-100.0); Mean Platelet Volume 8.9; Monocytes # (A) 0.3 k/uL (0-1.0); Monocytes % (A) 8 %; Neutrophils # (A) 2.3 k/uL (1.3-7.7); Neutrophils % (A) 63 %; Platelet Count 251 k/uL (150-450); RBC 3.52 m/uL (3.80-5.40); RDW 15.7 % (11.5-15.5); WBC 3.7 k/uL (3.8-10.6)
[2020-04-24 07:06] LABS: Glucose,Whole Blood 118 mg/dL (75-99)
[2020-04-24] MEDS: INSULIN ASPART (NovoLOG) 100 UNIT/ML VIAL SQ SCH ×4 (07:41→21:35)
[2020-04-24] MEDS: CHOLECALCIFEROL 1,000 UNIT TAB PO SCH (08:03)
[2020-04-24] MEDS: GABAPENTIN 100 MG CAP PO SCH ×3 (08:03→21:36)
[2020-04-24] MEDS: BACLOFEN 10 MG TAB PO PRN ×2 (08:03→21:36)
[2020-04-24] MEDS: CITALOPRAM HYDROBROMIDE 20 MG TAB PO SCH (08:03)
[2020-04-24] MEDS: ACETAMINOPHEN TAB 325 MG TAB PO PRN ×2 (08:03→21:36)
[2020-04-24] MEDS: ZINC SULFATE 220 MG CAP PO SCH (08:04)
[2020-04-24] MEDS: PANTOPRAZOLE 40 MG TABLET PO SCH (08:04)
[2020-04-24] MEDS: ERTAPENEM 1 GM in SODIUM CHLORIDE 0.9% 50 ML IVPB SCH (08:04)
[2020-04-24] MEDS: DEXAMETHASONE SOD PHOSPHATE 10 MG/ML 1 ML VIAL IV SCH (08:04)
[2020-04-24] MEDS: atenoloL 50 MG TAB PO SCH (08:04)
[2020-04-24] MEDS: ASCORBIC ACID 500 MG TAB PO SCH ×2 (08:04→21:35)
[2020-04-24] MEDS: ENOXAPARIN 40 MG/0.4 ML SYRINGE SQ SCH (08:07)
[2020-04-24 11:44] LABS: Glucose,Whole Blood 132 mg/dL (75-99)
[2020-04-24 12:16] LABS: African American GFR (CKD) 71.9 (60.0-200.0); Calcium 8.5 mg/dL (8.7-10.3); Non-African American GFR(CKD) 62.1 (60.0-200.0); Potassium 3.7 mmol/L (3.5-5.5)
[2020-04-24] MEDS: REMDESIVIR 100 MG in SODIUM CHLORIDE 0.9% 250 ML IVPB SCH (14:01)
[2020-04-24 16:56] LABS: Glucose,Whole Blood 185 mg/dL (75-99)
--- NOTE | 2020-04-24 17:34 | P.PN ---
Subjective Progress Note Date: 04/24/20 This is a 59-year-old female presented to the ER with history of fever, nausea vomiting , body aches, dry cough, right stump pain, in a patient with history of right stump stent feb [address] Saez, CVA/TIA, diabetes mellitus, hyperlipidemia, hypertension, osteoarthritis, vascular disorder, chronic gout, depression, former smoker and multiple other medical issues. Denies chest pain, palpitations or shortness of breath, O2 sat on admission, in the 90s on room air. Denies bleeding. Currently afebrile with T-max 102.5. Blood and urine cultures pending. Chest x-ray reported nonspecific mildly prominent right interstitial opacities. Chest CTA reported bilateral moderate pulmonary opacities, concerning for coated pneumonia- groundglass in the dependent upper and lower lobes bilaterally with additional diffuse mild patchy groundglass opacities, no pneumothorax, no pulmonary embolism, multilevel moderate thoracic spondylosis. Tested positive for mac virus. Fair time 173.4, 182.2, LDH 632, down to 233, CRP 51.3, d-dimer 0.85, pro calcitonin 0.13. UA reported large leukocytes, 150 for urine WBCs, negative for nitrates, many bacteria. On admission BUN 29 creatinine 1.23, with IV fluid hydration currently 30/1.1. Blood sugars mildly elevated. Lactic acid 1.4. Hemoglobin 9.7, platelets 243. Normal WBC. Antibiotics and IV fluid hydration initiated in the ER. 12:15 20 labs pending. Maintained on Covid regimen, including Remdesivir. Maintaining O2 sats in the 90s on room air. Urine culture reporting gram- negative bacilli .Afebrile, normal WBC. BMP pending. Complains of nausea. Denies emesis. Denies diarrhea. Reports minimal productive cough. 04/23/2020 urine culture reporting Klebsiella pneumoniae with ESBL. Antibiotics adjusted to ertapenem. Preliminary blood cultures no growth at 48 hours. Afebrile, normal WBC. Maintained on Covid regimen, including Remdes ivir,maintaining O2 sats in the 90s on 2 L nasal cannula. Reports minimal cough, no nausea no emesis nor diarrhea. 04/24/2020 scheduled for a midline for outpatient IV antibiotic therapy. Continues on Remdesivir, Decadron, zinc, vitamin C, vitamin D. Afebrile, WBC 3.7. Maintaining O2 sats in the 90s on 2 L nasal cannula. Blood sugars better controlled. Objective - Vital Signs Vital signs: Vital Signs Temp 98.1 F 04/24/20 14:30 Pulse 53 L 04/24/20 14:30 Resp 18 04/24/20 14:30 BP 132/71 04/24/20 14:30 Pulse Ox 95 04/24/20 14:30 Intake & Output 04/23/20 04/24/20 04/24/20 18:59 06:59 18:59 Intake Total 550 Output Total 650 450 Balance -650 100 Intake: Intake, IV Titration 300 Amount Ertapenem 1 gm In Sodium 50 Chloride 0.9% 50 ml @ 100 mls/hr IVPB DAILY [facility] Rx #:[id number] Remdesivir 100 mg In 250 Sodium Chloride 0.9% 250 ml @ 250 mls/hr IVPB Q24H [facility] Rx#:[id number] Oral 250 Output: Urine 650 450 Other: Voiding Method Diaper Diaper Diaper # Voids 2 - Exam - Exam GENERAL: Sitting up in bed,NAD HEENT: Head atraumatic, normocephalic. Pupils are equal, round, and reactive to light. Sclerae anicteric. Conjunctivae clear. Mucus membranes of the mouth are moist. NECK: Neck is supple, no JVD. RESPIRATORY: Clear to auscultation. No rhonchi, crackles, or wheezes. CARDIOVASCULAR: Regular rate and rhythm. S1 and S2 noted. No systolic or diastolic murmur auscultated. No S3 or S4 noted. GASTROINTESTINAL: Soft, No distention noted, nontender. Normal active bowel sounds auscultated. INTEGUMENTARY: Skin ,warm and dry, no rash EXTREMITIES: Left [id number] amputation, and right AKA, stumps healed, both warm and pink. NEUROLOGIC: Cranial nerves II-XII intact. PSYCHIATRIC: Awake, alert, and oriented X 3. Appropriate affect. - Labs CBC & Chem 7: 04/24/20 06:45 04/24/20 06:45 Labs: Abnormal Lab Results - Last 24 Hours (Table) 04/23/20 04/24/20 04/24/20 Range/Units 20:18 06:45 06:45 WBC 3.7 L (3.8-10.6) k/uL RBC 3.52 L (3.80-5.40) m/uL Hgb 9.9 L (11.4-16.0) gm/dL Hct 29.4 L (34.0-46.0) % RDW 15.7 H (11.5-15.5) % Chloride 110 H (96-109) mmol/L BUN 37.0 H (9.0-27.0) mg/dL BUN/Creatinine Ratio 37.00 H (12.00-20.00) Ratio Glucose 113 H (70-110) mg/dL POC Glucose (mg/dL) 224 H (75-99) mg/dL Calcium 8.5 L (8.7-10.3) mg/dL 04/24/20 04/24/20 04/24/20 Range/Units 07:04 11:42 16:54 WBC (3.8-10.6) k/uL RBC (3.80-5.40) m/uL Hgb (11.4-16.0) gm/dL Hct (34.0-46.0) % RDW (11.5-15.5) % Chloride (96-109) mmol/L BUN (9.0-27.0) mg/dL BUN/Creatinine Ratio (12.00-20.00) Ratio Glucose (70-110) mg/dL POC Glucose (mg/dL) 118 H 132 H 185 H (75-99) mg/dL Calcium (8.7-10.3) mg/dL Microbiology - Last 24 Hours (Table) 04/23/20 16:05 Urine Culture - Preliminary Urine,Clean Catch 04/20/20 19:03 Blood Culture - Preliminary Blood No Growth after 72 hours 04/20/20 18:51 Blood Culture - Preliminary Blood No Growth after 72 hours Assessment and Plan Assessment: Acute,Covid bilateral pneumonia Acute hypoxic respiratory failure secondary to the above, improving Acute UTI in a patient with history of sepsis secondary to acute UTI with Klebsiella ESBL Acute gastroenteritis secondary to Covid Acute on Chronic kidney disease stage III, secondary to dehydration Anemia of chronic disease Diabetes mellitus type 2 History of CVA PAD Dyslipidemia Hypertension Plan: Continue on current medication regime ,monitoring and symptomatic treatment.anticoagulation with Lovenox, continue Decadron, vitamin C, vitamin D, zinc oxide, Remdesevir.midline placement pending. Discharge planning in [facility] for tomorrow. The impression and plan of care has been dictated as directed. : I performed a history and examination of this patient, discussed the same with the dictator. I agree with the dictator's note ,documented as a scribe. Any additional findings or plans will be noted.
[2020-04-24 20:10] LABS: Glucose,Whole Blood 163 mg/dL (75-99)
[2020-04-24] MEDS: CLOPIDOGREL 75 MG TAB PO SCH (21:35)
[2020-04-24] MEDS: TEMAZEPAM 15 MG CAP PO PRN (21:36)
--- NOTE | 2020-04-25 00:09 | PN ---
PROGRESS NOTE DATE OF SERVICE: 04/24/2020 REASON FOR FOLLOWUP: 1. COVID-19 pneumonia. 2. ESBL Klebsiella urinary tract infection. INTERVAL HISTORY: The patient is currently afebrile. The patient is breathing comfortably. Denies having any chest pain or shortness of breath. Minimal cough. No nausea, vomiting, abdominal pain or diarrhea. PHYSICAL EXAMINATION: Blood pressure 150/72 with a pulse of 50, temperature 98. She is 95% on 2 L nasal cannula. General description is a middle-aged female lying in bed in no distress. RESPIRATORY SYSTEM: Unlabored breathing, decreased intensity of breath sounds. No wheeze. HEART: S1, S2. Regular rate and rhythm. ABDOMEN: Soft, no tenderness. LABS: Hemoglobin 9.9, white count 3.7. BUN of 37, creatinine 1.0. DIAGNOSTIC IMPRESSION AND PLAN: 1. Patient with acute COVID-19 pneumonia. Patient is on remdesivir, dexamethasone, Lovenox, zinc, to continue along with respiratory support. 2. Patient with ESBL Klebsiella urinary tract infection currently covered with ertapenem. She will get a Midline with plan for 7 days of IV antibiotic on discharge. Continue with supportive care. MMODL / IJN: [id number] / MTDD
[2020-04-25 07:05] LABS: Glucose,Whole Blood 103 mg/dL (75-99)
[2020-04-25] MEDS: INSULIN ASPART (NovoLOG) 100 UNIT/ML VIAL SQ SCH ×3 (07:07→17:30)
[2020-04-25] MEDS: BACLOFEN 10 MG TAB PO PRN (08:09)
[2020-04-25] MEDS: CITALOPRAM HYDROBROMIDE 20 MG TAB PO SCH (08:09)
[2020-04-25] MEDS: ERTAPENEM 1 GM in SODIUM CHLORIDE 0.9% 50 ML IVPB SCH (08:09)
[2020-04-25] MEDS: ENOXAPARIN 40 MG/0.4 ML SYRINGE SQ SCH (08:09)
[2020-04-25] MEDS: ACETAMINOPHEN TAB 325 MG TAB PO PRN (08:09)
[2020-04-25] MEDS: DEXAMETHASONE SOD PHOSPHATE 10 MG/ML 1 ML VIAL IV SCH (08:09)
[2020-04-25] MEDS: PANTOPRAZOLE 40 MG TABLET PO SCH (08:10)
[2020-04-25] MEDS: GABAPENTIN 100 MG CAP PO SCH ×2 (08:10→16:04)
[2020-04-25] MEDS: ASCORBIC ACID 500 MG TAB PO SCH (08:10)
[2020-04-25] MEDS: ZINC SULFATE 220 MG CAP PO SCH (08:10)
[2020-04-25] MEDS: CHOLECALCIFEROL 1,000 UNIT TAB PO SCH (08:10)
[2020-04-25] MEDS: atenoloL 50 MG TAB PO SCH (08:10)
[2020-04-25 10:31] VITALS: RESP 16
--- NOTE | 2020-04-25 10:44 | P.DS ---
Providers Date of admission: 04/20/20 20:39 Expected date of discharge: 04/25/20 Attending physician: Rene Armijo Consults: 04/20/20 20:36 Consult Physician Urgent Consulting Provider: Natalio Mora Consult Reason/Comments: Covid pneumonia, hypoxia Do you want consulting provider notified?: Yes 04/20/20 20:37 Consult Physician Urgent Consulting Provider: Kriss Quintero Consult Reason/Comments: Covid pneumonia, hypoxia Do you want consulting provider notified?: Yes Primary care physician: Rene Armijo Hospital Course: Final Diagnoses: Acute,Covid bilateral pneumonia Acute hypoxic respiratory failure secondary to the above, resolved Acute UTI in a patient with history of sepsis secondary to acute UTI with Klebsiella ESBL Acute gastroenteritis secondary to Covid Acute on Chronic kidney disease stage III, secondary to dehydration Anemia of chronic disease Diabetes mellitus type 2 History of CVA PAD Dyslipidemia Hypertension Hospital course:This is a 59-year-old female presented to the ER with history of fever, nausea vomiting , body aches, dry cough, right stump pain, in a patient with history of right stump stent feb [address] Saez, CVA/TIA, diabetes m ellitus, hyperlipidemia, hypertension, osteoarthritis, vascular disorder, chronic gout, depression, former smoker and multiple other medical issues. Denies chest pain, palpitations or shortness of breath, O2 sat on admission, in the 90s on room air. Denies bleeding. Currently afebrile with T-max 102.5. Blood and urine cultures pending. Chest x-ray reported nonspecific mildly prominent right interstitial opacities. Chest CTA reported bilateral moderate pulmonary opacities, concerning for coated pneumonia- groundglass in the dependent upper and lower lobes bilaterally with additional diffuse mild patchy groundglass opacities, no pneumothorax, no pulmonary embolism, multilevel moderate thoracic spondylosis. Tested positive for mac virus. Fair time 173.4, 182.2, LDH 632, down to 233, CRP 51.3, d-dimer 0.85, pro calcitonin 0.13. UA reported large leukocytes, 150 for urine WBCs, negative for nitrates, many bacteria. On admission BUN 29 creatinine 1.23, with IV fluid hydration currently 30/1.1. Blood sugars mildly elevated. Lactic acid 1.4. Hemoglobin 9.7, platelets 243. Normal WBC. Antibiotics and IV fluid hydration initiated in the ER. 12:15 20 labs pending. Maintained on Covid regimen, including Remdesivir. Maintaining O2 sats in the 90s on room air. Urine culture reporting gram- negative bacilli .Afebrile, normal WBC. BMP pending. Complains of nausea. Denies emesis. Denies diarrhea. Reports minimal productive cough. 04/23/2020 urine culture reporting Klebsiella pneumoniae with ESBL. Antibiotics adjusted to ertapenem. Preliminary blood cultures no growth at 48 hours. Afebrile, normal WBC. Maintained on Covid regimen, including Remdesivir,maintaining O2 sats in the 90s on 2 L nasal cannula. Reports minimal cough, no nausea no emesis nor diarrhea. 04/24/2020 scheduled for a midline for outpatient IV antibiotic therapy. Continues on Remdesivir, Decadron, zinc, vitamin C, vitamin D. Afebrile, WBC 3.7. Maintaining O2 sats in the 90s on 2 L nasal cannula. Blood sugars better controlled. Midline catheter placed yesterday, tolerated procedure well. Completing Remdesevir treatment today. Patient will be discharged to [facility], in a stable condition with guarded prognosis, pending final DC recommendations, DC antibiotics and clearance from ID. Beta pat currently on hold secondary to asymptomatic bradycardia, Cozaar on hold secondary to acute renal failure-reevaluate AT follow-up visit with PCP. The impression and plan of care has been dictated as directed. : I performed a history and examination of this patient, discussed the same with the dictator. I agree with the dictator's note ,documented as a scribe. Any additional findings or plans will be noted. Patient Condition at Discharge: Stable Plan - Discharge Summary New Discharge Prescriptions: New Zinc Sulfate [Orazinc] 220 mg PO DAILY #30 cap Ascorbic Acid [Vitamin C] 500 mg PO BID #10 tab Cholecalciferol [Vitamin D3 (25 Mcg = 1000 Iu)] 2,000 unit PO DAILY #10 tab Continue Citalopram Hydrobromide [CeleXA] 40 mg PO DAILY Clopidogrel Bisulfate [Plavix] 75 mg PO HS Baclofen [Lioresal] 10 mg PO BID PRN tab PRN Reason: Muscle Spasm Gabapentin [Neurontin] 200 mg PO TID #18 cap Pantoprazole Sodium [Protonix] 40 mg PO DAILY #30 tablet. Potassium Chloride ER [K-Dur 20] 20 meq PO DAILY Ergocalciferol (Vitamin D2) [Drisdol] 50,000 unit PO Q30D Allopurinol [Zyloprim] 300 mg PO DAILY Temazepam [Restoril] 15 mg PO HS PRN PRN Reason: Insomnia amLODIPine [Norvasc] 10 mg PO DAILY traMADol HCL 50 mg PO Q8H PRN PRN Reason: Pain Discharge Medication List Citalopram Hydrobromide [CeleXA] 40 mg PO DAILY 04/25/19 [History] Clopidogrel Bisulfate [Plavix] 75 mg PO HS 06/01/19 [History] Baclofen [Lioresal] 10 mg PO BID PRN tab 10/09/19 [Rx] Gabapentin [Neurontin] 200 mg PO TID #18 cap 10/09/19 [Rx] Pantoprazole Sodium [Protonix] 40 mg PO DAILY #30 tablet.dr 10/09/19 [Rx] Allopurinol [Zyloprim] 300 mg PO DAILY 04/21/20 [History] Ergocalciferol (Vitamin D2) [Drisdol] 50,000 unit PO Q30D 04/21/20 [History] Potassium Chloride ER [K-Dur 20] 20 meq PO DAILY 04/21/20 [History] Temazepam [Restoril] 15 mg PO HS PRN 04/21/20 [History] amLODIPine [Norvasc] 10 mg PO DAILY 04/21/20 [History] traMADol HCL 50 mg PO Q8H PRN 04/21/20 [History] Ascorbic Acid [Vitamin C] 500 mg PO BID #10 tab 04/25/20 [Rx] Cholecalciferol [Vitamin D3 (25 Mcg = 1000 Iu)] 2,000 unit PO DAILY #10 tab 04/25/20 [Rx] Zinc Sulfate [Orazinc] 220 mg PO DAILY #30 cap 04/25/20 [Rx] Follow up Appointment(s)/Referral(s): Rene Armijo DO [Primary Care Provider] - 1-2 days [facility], [NON-STAFF] - Activity/Diet/Wound Care/Special Instructions: beta pat held secondary to bradycardic, heart rates down into the 40s, asymptomatic, reevaluate at follow-up visit with PCP Currently on hold, acute renal failure, on admission, reevaluate at follow-up visit with PCP
[2020-04-25 11:22] LABS: Glucose,Whole Blood 144 mg/dL (75-99)
[2020-04-25 13:59] VITALS: BMI 50.9
[2020-04-25 14:29] VITALS: BP 128/70; PULSE 50; TEMP 98.2
[2020-04-25] MEDS: REMDESIVIR 100 MG in SODIUM CHLORIDE 0.9% 250 ML IVPB SCH (14:39)
--- NOTE | 2020-04-25 21:04 | P.PN ---
Progress Note - Text Progress Note Date: 04/25/20 REASON FOR FOLLOWUP: 1. COVID-19 pneumonia. 2. ESBL Klebsiella urinary tract infection. INTERVAL HISTORY: The patient is afebrile. The patient is breathing comfortably. The pt denies having any chest pain or shortness of breath. Minimal cough. No nausea, vomiting, abdominal pain or diarrhea. PHYSICAL EXAMINATION: Blood pressure 155/70 with a pulse of 55, temperature 98. She is 95% on 2 L nasal cannula. General description is a middle-aged female lying in bed in no distress. RESPIRATORY SYSTEM: Unlabored breathing, decreased intensity of breath sounds. No wheeze. HEART: S1, S2. Regular rate and rhythm. ABDOMEN: Soft, no tenderness. LABS: Reviewed DIAGNOSTIC IMPRESSION AND PLAN: 1. Patient with acute COVID-19 pneumonia. Patient completed 5 day course of remdesivir, dexamethasone, Lovenox, zinc, to continue along with respiratory support. 2. Patient with ESBL Klebsiella urinary tract infection currently covered with ertapenem , with plan for 7 days total of IV of Iv Invanz . Continue with supportive care.
== END 2020-04-25 18:08 | disposition home health service (06) | DRG 177 ==
LOC: EC 18:27 → 4SSUR 20:39
PROVIDERS: ADMIT Family Medicine; ATTEND Family Medicine
PROC: XW033E5 Introduction of Remdesivir Anti-infective into Peripheral Vein, Percutaneous Approach, New Technology Group 5 (ICD-10-PCS; principal; 2020-04-24 16:00)
DX: U07.1 COVID-19 (principal); J12.89 Other viral pneumonia; J96.01 Acute respiratory failure with hypoxia; N17.9 Acute kidney failure, unspecified; N39.0 Urinary tract infection, site not specified; I25.10 Atherosclerotic heart disease of native coronary artery without angina pectoris; F32.9 Major depressive disorder, single episode, unspecified; G89.29 Other chronic pain; E86.0 Dehydration; E78.5 Hyperlipidemia, unspecified; I12.9 Hypertensive chronic kidney disease with stage 1 through stage 4 chronic kidney disease, or unspecified chronic kidney disease; E11.22 Type 2 diabetes mellitus with diabetic chronic kidney disease; D72.810 Lymphocytopenia; N18.30 Chronic kidney disease, stage 3 unspecified; K52.9 Noninfective gastroenteritis and colitis, unspecified; E11.51 Type 2 diabetes mellitus with diabetic peripheral angiopathy without gangrene; B96.1 Klebsiella pneumoniae [K. pneumoniae] as the cause of diseases classified elsewhere; M1A.9XX0 Chronic gout, unspecified, without tophus (tophi); D63.1 Anemia in chronic kidney disease; Z79.4 Long term (current) use of insulin; Z79.899 Other long term (current) drug therapy; Z82.49 Family history of ischemic heart disease and other diseases of the circulatory system; Z82.3 Family history of stroke; Z88.2 Allergy status to sulfonamides; Z90.710 Acquired absence of both cervix and uterus; Z89.611 Acquired absence of right leg above knee; Z89.512 Acquired absence of left leg below knee; Z98.890 Other specified postprocedural states; Z86.73 Personal history of transient ischemic attack (TIA), and cerebral infarction without residual deficits; Z87.891 Personal history of nicotine dependence
CPT/HCPCS: 36410; 36415; 51701; 71045; 71275; 76937; 80048; 80053; 81001; 82728; 83605; 83615; 83735; 84145; 85025; 85379; 85610; 85730; 86140; 87040; 87077; 87086; 87186; 87635; 93005; 96365; 96367; 96375; 99285